=== PATIENT | male | born 1950 | race Caucasian/White ===

== ENCOUNTER 2016-11-08 20:15 | Inpatient (IN) | payer OTHER, MEDICARE ==
[~2016-11-08] VITALS: Ht 185.4 cm; Wt 75.0 kg
[~2016-11-08 20:15] MED LIST: ALBU8I INH; AMLO5 PO; LEVEMIR SQ; LIPI20TA PO; NOVOLOGP2 SQ; PROT40TA PO; PROZ20CA11 PO; TIOT18I INH
[2016-11-08 20:17] VITALS: BP 125/56; PULSE 75; RESP 16; TEMP 99.1; O2SAT 97
[2016-11-08] MEDS ORDERED: PANT40TA3 PO (20:55)
[2016-11-08] MEDS ORDERED: GABA300C5 PO (20:55)
[2016-11-08] MEDS ORDERED: FLUO40CA PO (20:55)
[2016-11-08] MEDS ORDERED: ATOR20TA15 PO (20:55)
[2016-11-08] MEDS ORDERED: LISI10TA3 PO (20:55)
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
[2016-11-08] MEDS ORDERED: VANCOMYCIN INJ 1,000 MG in SODIUM CHLOR 0.9% 250 ML INJ 250 ML IV ONE (21:00)
[2016-11-08 21:15] LABS: AUTOMATED NEUTROPHIL # 6.9 TH/MM3 (1.8-7.7); BASOPHIL # 0.1 TH/MM3 (0-0.2); BASOPHIL % 1.1 % (0.0-2.0); EOSINOPHIL # 0.3 TH/MM3 (0-0.4); EOSINOPHIL % 2.7 % (0.0-4.0); HEMO FLAGS DIFF FINAL; LYMPH % 18.4 % (9.0-44.0); LYMPHOCYTE # 1.8 TH/MM3 (1.0-4.8); MEAN CELL VOLUME 95.3 FL (80.0-100.0); MEAN CORPUSCULAR HEMOGLOBIN 31.1 PG (27.0-34.0); MEAN CORPUSCULAR HGB CONC 32.6 % (32.0-36.0); MONO % 6.6 % (0.0-8.0); NEUT % 71.2 % (16.0-70.0); PLATELET COUNT 212 TH/MM3 (150-450); RED BLOOD COUNT 4.51 MIL/MM3 (4.50-5.90); RED CELL DISTRIBUTION WIDTH 13.8 % (11.6-17.2); WHITE BLOOD COUNT 9.7 TH/MM3 (4.0-11.0)
[2016-11-08 21:27] LABS: APTT (PATIENT) 26.8 SEC (24.3-30.1); INTERNATIONAL NORMALIZED RATIO 0.9 RATIO; PROTHROMBIN TIME - PATIENT 10.2 SEC (9.8-11.6)
--- NOTE | 2016-11-08 21:50 | RADRPT ---
EXAM DATE/TIME: 11/08/2016 21:07 [facility] COMPARISON: No previous studies available for comparison. INDICATIONS : Possible spider bite top of left foot. Large wound. MEDICAL HISTORY : None. SURGICAL HISTORY : None. ENCOUNTER: Initial ACUITY: 4 - 6 days PAIN SCORE: 8/10 LOCATION: Left lateral FINDINGS: Three view examination of the left foot demonstrates no dislocation, or fracture. The tarsal bones appear intact. The interphalangeal and metatarsophalangeal joints are intact. The calcaneus is inta ct. Bony mineralization is normal. CONCLUSION: 1. No acute bony abnormalities. Conner Steel MD on November 08, 2016 at 21:47 Board Certified Radiologist. This report was verified electronically.
[2016-11-08 22:03] LABS: ANION GAP 8 MEQ/L (5-15)
[2016-11-08 22:05] LABS: ALKALINE PHOSPHATASE 123 U/L (45-117); ALT (GPT) 26 U/L (12-78); AST (GOT) 18 U/L (15-37); BICARBONATE 28.1 MEQ/L (21.0-32.0); BLOOD UREA NITROGEN 21 MG/DL (7-18); CHLORIDE 98 MEQ/L (98-107); GLOMERULAR FILTRATION RATE 42 ML/MIN (>89); POTASSIUM 4.8 MEQ/L (3.5-5.1); SODIUM (NA) 134 MEQ/L (136-145); TOTAL BILIRUBIN ADULT 0.2 MG/DL (0.2-1.0)
[2016-11-08] MEDS ORDERED: SODIUM CHLOR 0.9% 1000 ML INJ 1,000 ML IV ONE ×2 (22:11→22:41)
[2016-11-08] MEDS ORDERED: INSULIN HUMAN REGULAR 1,000 UNITS/10 ML VIAL IV PUSH ONE (22:15)
--- NOTE | 2016-11-08 22:36 | HHI.HP ---
[facility] Elder Rebolledo [facility] Admission Diagnosis left foot abscess/cellulitis, hyperglycemia Diagnoses: (1) Left foot infection Diagnosis: Principal (2) EDGARDO (acute kidney injury) Diagnosis: Principal (3) HTN (hypertension) Diagnosis: Principal (4) DM (diabetes mellitus) Diagnosis: Principal (5) Tobacco abuse Diagnosis: Principal Travel History International Travel<30 Days: No Contact w/Intl Traveler <30 Da: No Traveled to Known Affected Are: No History of Present Illness This is a 66-year-old male with a PMH of HTN, Hyperlipidemia, DM and Tobacco Abuse sent to the ER with complaints of left foot infection. States left 5th toe had gotten red w/ blister formation, seen by PCP and started on Augmentin yesterday. Today, noted the redness had gotten progressively worse, states blister popped, +purulent drainage. Denies fever or chills. On arrival, BP 122 /56, HR 75, O2 sat 97% on RA, Temp 99.1. CBC unremarkable. Creatinine 1.64, previously 1.21 on 10/08/15. BS 523. Lactic Acid 1.7. INR 0.9. UA negative. Foot X-ray with no acute bony abnormalities. S/p Blood/Wound Cultures in ER and given Vanc IV Review of Systems Except as stated in HPI: all other systems reviewed are Neg ROS: 14 point review of systems otherwise negative. Past Family Social History Past Medical History PMH: HTN, Hyperlipidemia, DM and Tobacco Abuse Past Surgical History PAST SURGICAL HISTORY: Pacemaker Allergies: Coded Allergies: No Known Allergies (Unverified , 10/07/15) Family History PAST FAMILY HISTORY: Reviewed. No h/o DM or CAD Social History PAST SOCIAL HISTORY: Occasional alcohol. Smokes 1ppd. Negative for drugs. Physical Exam Vital Signs Vital Signs Date Time Temp Pulse Resp B/P Pulse Ox O2 Delivery O2 Flow Rate FiO2 11/08/16 20:17 99.1 75 16 125/56 97 Physical Exam PE: GENERAL: Middle-aged male in no acute distress. HEENT: PERRLA, EOMI. No scleral icterus or conjunctival pallor. No lid lag or facial droop. CARDIOVASCULAR: Regular rate and rhythm. No obvious murmurs to auscultation. No chest tenderness to palpation. RESPIRATORY: No obvious rhonchi or wheezing. Clear to auscultation. Breath sounds equal bilaterally. GASTROINTESTINAL: Abdomen soft, non-tender, nondistended. BS normal. MUSCULOSKELETAL: Extremities without clubbing, cyanosis, or edema. No obvious deformities. Left foot w/ 5th toe infection, +purulent drainage, +erythema. NEUROLOGICAL: Awake, alert and oriented x4. No focal neurologic deficits. Moving both upper and lower extremities spontaneously. Laboratory Laboratory Tests Test 11/08/16 20:55 White Blood Count 9.7 Red Blood Count 4.51 Hemoglobin 14.0 Hematocrit 43.0 Mean Corpuscular Volume 95.3 Mean Corpuscular Hemoglobin 31.1 Mean Corpuscular Hemoglobin 32.6 Concent Red Cell Distribution Width 13.8 Platelet Count 212 Mean Platelet Volume 8.9 Neutrophils (%) (Auto) 71.2 Lymphocytes (%) (Auto) 18.4 Monocytes (%) (Auto) 6.6 Eosinophils (%) (Auto) 2.7 Basophils (%) (Auto) 1.1 Neutrophils # (Auto) 6.9 Lymphocytes # (Auto) 1.8 Monocytes # (Auto) 0.6 Eosinophils # (Auto) 0.3 Basophils # (Auto) 0.1 CBC Comment DIFF FINAL Differential Comment Prothrombin Time 10.2 Prothromb Time International 0.9 Ratio Activated Partial 26.8 Thromboplast Time Sodium Level 134 Potassium Level 4.8 Chloride Level 98 Carbon Dioxide Level 28.1 Anion Gap 8 Blood Urea Nitrogen 21 Creatinine 1.64 Estimat Glomerular Filtration 42 Rate Random Glucose 523 Lactic Acid Level 1.7 Calcium Level 9.2 Total Bilirubin 0.2 Aspartate Amino Transf 18 (AST/SGOT) Alanine Aminotransferase 26 (ALT/SGPT) Alkaline Phosphatase 123 Total Protein 6.8 Albumin 3.3 Date/Time Procedure Status Source Growth 11/08/16 20:55 Aerobic Blood Culture Received Blood Peripheral Pending 11/08/16 20:55 Anaerobic Blood Culture Received Blood Peripheral Pending 11/08/16 20:50 Gram Stain Received Wound Foot Pending 11/08/16 20:50 Wound Culture Received Wound Foot Pending Result Diagram: 11/08/16205411/08/162054 Assessment and Plan Problem List: (1) Left foot infection ICD Code: L08.9 Status: Acute (2) EDGARDO (acute kidney injury) ICD Code: N17.9 Status: Acute (3) HTN (hypertension) ICD Code: I10 Status: Acute (4) DM (diabetes mellitus) ICD Code: E11.9 Status: Acute (5) Tobacco abuse ICD Code: Z72.0 Status: Acute Assessment and Plan A/P: 1. Left Foot Infection: seen by PCP yesterday, started on Augmentin w/ no improvement, +purulent drainage from 5th left toe. X-ray w/ no acute bony abnormality, images reviewed by me. S/p Blood/Wound Cultures and IV Vanc in ER , follow up cultures, continue IV Abx. Consult Podiatry for further evaluation 2. DM: Uncontrolled. Hgb A1c 11.0 on 10/07/15. BS 523. S/p 10u Insulin, sliding scale w/ Accu-Cheks. Re-check Hgb A1c. 3. EDGARDO: Creatinine 1.64, previously 1.21 on 10/08/15. U/a negative, IVF, repeat labs in am. 4. HTN: BP 120's systolic. Resume home medications, hold Lisinopril in light of renal insufficiency. 5. Tobacco Abuse: Pt counselled. Ativan/NicoDerm prn if needed. 6. DVT Prophylaxis: Mechanical contraindication in light of injury/wound. 7. Social work for d/c planning as needed. 8. Case discussed w/ ER physician at length. Physician Certification 2 Midnight Certification Type: Admission for Inpatient Services Order for Inpatient Services The services are ordered in accordance with Medicare regulations or non- Medicare payer requirements, as applicable. In the case of services not specified as inpatient-only, they are appropriately provided as inpatient services in accordance with the 2-midnight benchmark. Estimated LOS (days): 2 days is the estimated time the patient will need to remain in the hospital, assuming treatment plan goals are met and no additional complications. Post-Hospital Plan: Not yet determined Angeline Astudillo MD Nov 08, 2016 22:36
[2016-11-08] MEDS ORDERED: SODIUM CHLORIDE 0.9% FLUSH 10 ML FLUSH IV FLUSH PRN (22:45)
[2016-11-08] MEDS ORDERED: BISACODYL 10 MG SUPP RECTAL PRN (22:45)
[2016-11-08] MEDS ORDERED: DEXTROSE 50% IN WATER 50 ML VIAL(D50) IV PUSH PRN (22:45)
[2016-11-08] MEDS ORDERED: ACETAMINOPHEN 325 MG TAB PO PRN (22:45)
[2016-11-08] MEDS ORDERED: ACETAMINOPHEN/HYDROcodone 325 MG/5 MG TAB PO PRN (22:45)
[2016-11-08] MEDS ORDERED: GLUCAGON 1 MG/ML VIAL OTHER PRN (22:45)
[2016-11-08] MEDS ORDERED: Vancomycin Consult Pharmacy 1 EA OTHER SCH (22:45)
[2016-11-08] MEDS ORDERED: ONDANSETRON HCL 4 MG/2 ML VIAL IVP PRN (22:45)
[2016-11-08] MEDS ORDERED: MORPHINE SULFATE 4 MG/ML INJ IV PRN (22:45)
[2016-11-08] MEDS: SODIUM CHLOR 0.9% 1000 ML INJ 1,000 ML IV SCH (23:11)
[2016-11-08] MEDS: HEPARIN SODIUM - SQ 10,000 UNITS/ML VIAL SQ SCH (23:12)
[2016-11-08 23:32] LABS: BACTERIA, URINE RARE /hpf; BLOOD, URINE NEG (NEG); GLUCOSE,URINE 1000 mg/dL (NEG); KETONE, URINE NEG (NEG); NITRITE,URINE NEG (NEG); PH, URINE 5.5 (5.0-8.5); URINE COLOR LIGHT-YELLOW (YELLW/STRAW)
[2016-11-08 23:33] LABS: COMMENT (UR) CATH-CULTURE IND; CULTURE IF INDICATED CATH CULTURE IND
[2016-11-08] MEDS: CEFEPIME INJ 1,000 MG in SODIUM CHLORIDE 0.9% INJ 100 ML IV SCH (23:49)
[2016-11-09] VITALS: BP 139/73; PULSE 64; RESP 18; TEMP 97.9; O2SAT 97
[2016-11-09] MEDS: INSULIN ASPART SUPPLEMENTAL SCALE SQ SCH ×4 (04:51→19:44)
[2016-11-09 05:27] LABS: AUTOMATED NEUTROPHIL # 5.7 TH/MM3 (1.8-7.7); BASOPHIL # 0.1 TH/MM3 (0-0.2); EOSINOPHIL # 0.4 TH/MM3 (0-0.4); EOSINOPHIL % 4.8 % (0.0-4.0); HEMATOCRIT 38.7 % (39.0-51.0); HEMO FLAGS DIFF FINAL; LYMPH % 21.5 % (9.0-44.0); LYMPHOCYTE # 1.8 TH/MM3 (1.0-4.8); MEAN CORPUSCULAR HEMOGLOBIN 30.9 PG (27.0-34.0); MEAN CORPUSCULAR HGB CONC 33.2 % (32.0-36.0); NEUT % 66.7 % (16.0-70.0); PLATELET COUNT 188 TH/MM3 (150-450); RED BLOOD COUNT 4.16 MIL/MM3 (4.50-5.90); RED CELL DISTRIBUTION WIDTH 13.4 % (11.6-17.2); WHITE BLOOD COUNT 8.5 TH/MM3 (4.0-11.0)
[2016-11-09 06:00] LABS: ALKALINE PHOSPHATASE 97 U/L (45-117); ALT (GPT) 19 U/L (12-78); ANION GAP 6 MEQ/L (5-15); AST (GOT) 9 U/L (15-37); BICARBONATE 27.6 MEQ/L (21.0-32.0); BLOOD UREA NITROGEN 18 MG/DL (7-18); CHLORIDE 105 MEQ/L (98-107); GLOMERULAR FILTRATION RATE 70 ML/MIN (>89); POTASSIUM 4.3 MEQ/L (3.5-5.1); SODIUM (NA) 139 MEQ/L (136-145); TOTAL BILIRUBIN ADULT 0.3 MG/DL (0.2-1.0)
--- NOTE | 2016-11-09 07:33 | PD.CONS ---
History of Present Illness Service Podiatry Consult Requested By Reason for Consult Le3ft fifth toe blister Primary Care Physician Elder Rebolledo MD Diagnoses: History of Present Illness 66 year old diabetic male presents with left fith toe blister with pus and redness. Pt states been there for a few days and progressively gotten worse even on antibiotics. Pt is comfortable at bedside Past Family Social History Allergies: Coded Allergies: No Known Allergies (Unverified , 10/07/15) Physical Exam Vital Signs Vital Signs Date Time Temp Pulse Resp B/P Pulse Ox O2 Delivery O2 Flow Rate FiO2 11/09/16 00:00 97.9 64 18 139/73 97 11/08/16 20:17 99.1 75 16 125/56 97 Physical Exam GENERAL: This is a well-nourished, well-developed patient, in no apparent distress. SKIN: No rashes, ecchymoses or lesions. Cool and dry. HEAD: Atraumatic. Normocephalic. No temporal or scalp tenderness. EYES: Pupils equal round and reactive. Extraocular motions intact. No scleral icterus. No injection or drainage. ENT: Nose without bleeding, purulent drainage or septal hematoma. Throat without erythema, tonsillar hypertrophy or exudate. Uvula midline. Airway patent. NECK: Trachea midline. No JVD or lymphadenopathy. Supple, nontender, no meningeal signs. CARDIOVASCULAR: Regular rate and rhythm without murmurs, gallops, or rubs. RESPIRATORY: Clear to auscultation. Breath sounds equal bilaterally. No wheezes , rales, or rhonchi. GASTROINTESTINAL: Abdomen soft, non-tender, nondistended. No hepato-splenomegaly , or palpable masses. No guarding. MUSCULOSKELETAL: Extremities without clubbing, cyanosis, or edema. No joint tenderness, effusion, or edema noted. No calf tenderness. Negative Homans sign bilaterally. NEUROLOGICAL: Awake and alert. Cranial nerves II through XII intact. Motor and sensory grossly within normal limits. Five out of 5 muscle strength in all muscle groups. Normal speech. Laboratory Laboratory Tests Test 11/08/16 11/08/16 11/09/16 20:55 23:10 04:30 White Blood Count 9.7 8.5 Red Blood Count 4.51 4.16 Hemoglobin 14.0 12.9 Hematocrit 43.0 38.7 Mean Corpuscular Volume 95.3 93.0 Mean Corpuscular Hemoglobin 31.1 30.9 Mean Corpuscular Hemoglobin 32.6 33.2 Concent Red Cell Distribution Width 13.8 13.4 Platelet Count 212 188 Mean Platelet Volume 8.9 9.1 Neutrophils (%) (Auto) 71.2 66.7 Lymphocytes (%) (Auto) 18.4 21.5 Monocytes (%) (Auto) 6.6 6.0 Eosinophils (%) (Auto) 2.7 4.8 Basophils (%) (Auto) 1.1 1.0 Neutrophils # (Auto) 6.9 5.7 Lymphocytes # (Auto) 1.8 1.8 Monocytes # (Auto) 0.6 0.5 Eosinophils # (Auto) 0.3 0.4 Basophils # (Auto) 0.1 0.1 CBC Comment DIFF FINAL DIFF FINAL Differential Comment Prothrombin Time 10.2 Prothromb Time International 0.9 Ratio Activated Partial 26.8 Thromboplast Time Sodium Level 134 139 Potassium Level 4.8 4.3 Chloride Level 98 105 Carbon Dioxide Level 28.1 27.6 Anion Gap 8 6 Blood Urea Nitrogen 21 18 Creatinine 1.64 1.05 Estimat Glomerular Filtration 42 70 Rate Random Glucose 523 245 Lactic Acid Level 1.7 Calcium Level 9.2 8.6 Total Bilirubin 0.2 0.3 Aspartate Amino Transf 18 9 (AST/SGOT) Alanine Aminotransferase 26 19 (ALT/SGPT) Alkaline Phosphatase 123 97 Total Protein 6.8 5.5 Albumin 3.3 2.6 Urine Color LIGHT-YELLOW Urine Turbidity CLEAR Urine pH 5.5 Urine Specific [place] 1.031 Urine Protein NEG Urine Glucose (UA) 1000 Urine Ketones NEG Urine Occult Blood NEG Urine Nitrite NEG Urine Bilirubin NEG Urine Urobilinogen LESS THAN 2.0 Urine Leukocyte Esterase NEG Urine RBC LESS THAN 1 Urine WBC 1 Urine Bacteria RARE Microscopic Urinalysis Comment CATH-CULTURE IND Date/Time Procedure Status Source Growth 11/08/16 23:10 Urine Culture Received Urine Clean Catch Pending 11/08/16 20:55 Aerobic Blood Culture Received Blood Peripheral Pending 11/08/16 20:55 Anaerobic Blood Culture Received Blood Peripheral Pending 11/08/16 20:50 Gram Stain Received Wound Foot Pending 11/08/16 20:50 Wound Culture Received Wound Foot Pending Result Diagram: 11/09/16 0430 11/09/16 0430 Imaging Xray no osseous findings Course LEft foot- Pulses diminished, sensation intact Mild edema lateral left forefoot Fifth toe edema and superficial blister with mild purulent drainage no tracking deep and no fluctuance deep Assessment and Plan Assessment and Plan DM ulcer, Left fifth digit soft tissue infection -Plan is betadine wet to dry -May consider SUSAN to get a baseline circulation assessment -IV antibiotics -Medical optimization -WBAT in post op shoe Thank you for the consult Max Das DPM Nov 09, 2016 07:33
[2016-11-09] MEDS: GABAPENTIN 300 MG CAP PO SCH (07:50)
[2016-11-09] MEDS: FLUoxetine HCL 20 MG CAP PO SCH (07:51)
[2016-11-09] MEDS: PANTOPRAZOLE SOD 40 MG DELAYED RELEASE TAB PO SCH (07:51)
[2016-11-09] MEDS: SODIUM CHLORIDE 0.9% FLUSH 10 ML FLUSH IV FLUSH SCH ×2 (07:52→19:44)
[2016-11-09] MEDS: SODIUM CHLOR 0.9% 1000 ML INJ 1,000 ML IV SCH ×2 (07:53→19:39)
[2016-11-09 08:00] VITALS: BP 133/67; PULSE 63; RESP 17; TEMP 97.7; O2SAT 98
--- NOTE | 2016-11-09 10:59 | HHI.PR ---
Subjective Remarks Follow up for left foot infection. Patient reports his left foot pain and swelling has improved overnight. Denies any fevers or chills. Tolerating oral intake. Denies any other medical complaints at this time. Objective Vitals Vital Signs Date Time Temp Pulse Resp B/P Pulse Ox O2 Delivery O2 Flow Rate FiO2 11/09/16 08:00 97.7 63 17 133/67 98 11/09/16 00:00 97.9 64 18 139/73 97 11/08/16 20:17 99.1 75 16 125/56 97 I/O 11/08/16 11/08/16 11/08/16 11/09/16 11/09/16 11/09/16 07:00 15:00 23:00 07:00 15:00 23:00 Intake Total 120 ml Output Total 0 ml Balance 120 ml Intake Oral 120 ml Output Urine Total 0 ml # Bowel Movements 0 Result Diagram: 11/09/16 0430 11/09/16 0430 Imaging Last Impressions Foot X-Ray 11/08/16 0000 Signed Impressions: Service Date/Time: Tuesday, November 08, 2016 21:07 - CONCLUSION: 1. No acute bony abnormalities. Conner tSeel MD Objective Remarks GENERAL: Well-developed, well-nourished male patient in [facility]. SKIN: Warm and dry. HEENT: Atraumatic. Normocephalic. Pupils equal and round. Mucous membranes pink and moist. NECK: Trachea midline. CARDIOVASCULAR: Regular rate and rhythm. No murmur appreciated. RESPIRATORY: No accessory muscle use. Clear to auscultation. Breath sounds equal bilaterally. GASTROINTESTINAL: Abdomen soft, non-tender, nondistended. Hepatic and splenic margins not palpable. MUSCULOSKELETAL: Extremities without clubbing, cyanosis, or edema. Left 5th toe with erythema/edema extending to the mid foot, purulent drainage from small 1cm wound at dorsal aspect of left 5th toe. NEUROLOGICAL: Awake and alert. No obvious cranial nerve deficits. Motor grossly within normal limits. Normal speech. PSYCHIATRIC: Appropriate mood and affect; insight and judgment normal. Medications and IVs Current Medications Medications (Trade) Dose Ordered Sig/Tricia Route Start Time Stop Time Status Last Admin (D50w (Vial) Inj) 25 ml UNSCH PRN IV PUSH 11/08/16 22:45 Glucagon 1 mg 1 mg UNSCH PRN OTHER 11/08/16 22:45 Pharmacy Profile Note 0 ml @ 0 mls/hr UNSCH OTHER 11/08/16 22:45 Cefepime HCl 1000 mg/Sodium Chloride 100 ml @ 200 mls/hr Q12H IV 11/09/16 00:00 11/08/16 23:49 (NS 1000 ml Inj) 1,000 ml @ 100 mls/hr Q10H IV 11/08/16 22:31 11/08/16 23:11 (NS Flush) 2 ml UNSCH PRN IV FLUSH 11/08/16 22:45 (NS Flush) 2 ml BID IV FLUSH 11/09/16 09:00 11/09/16 07:52 (Zofran Inj) 4 mg Q6H PRN IVP 11/08/16 22:45 (Dulcolax Supp) 10 mg DAILY PRN RECTAL 11/08/16 22:45 (Heparin Inj) 5,000 units Q12H SQ 11/08/16 23:00 11/08/16 23:12 (Tylenol) 650 mg Q6H PRN PO 11/08/16 22:45 (Warren 5-325 Mg) 1 tab Q4H PRN PO 11/08/16 22:45 (Morphine Inj) 2 mg Q3H PRN IV 11/08/16 22:45 (Lipitor) 20 mg HS PO 11/09/16 21:00 (PROzac) 40 mg DAILY PO 11/09/16 09:00 11/09/16 07:51 (Neurontin) 300 mg DAILY PO 11/09/16 09:00 11/09/16 07:50 Pantoprazole Sodium 40 mg 40 mg DAILY PO 11/09/16 09:00 11/09/16 07:51 (Vancomycin Inj/ NS 250 ml Inj) 250 ml @ 250 mls/hr Q12H IV 11/09/16 11:00 Miscellaneous Information SPECIFIC LAB TO BE DRAWN:VANCOMY... ONCE ONCE .XX 11/10/16 10:45 11/10/16 10:46 A/P Problem List: (1) Left foot infection ICD Code: L08.9 Status: Acute (2) EDGARDO (acute kidney injury) ICD Code: N17.9 Status: Acute (3) HTN (hypertension) ICD Code: I10 Status: Acute (4) DM (diabetes mellitus) ICD Code: E11.9 Status: Acute (5) Tobacco abuse ICD Code: Z72.0 Status: Acute Assessment and Plan 66-year-old male with a PMH of HTN, Hyperlipidemia, DM and Tobacco Abuse sent to the ER with complaints of left foot infection. States left 5th toe had gotten red w/ blister formation, seen by PCP and started on Augmentin yesterday. Diabetic Left Fifth Toe Infection: seen by PCP yesterday, started on Augmentin w/ no improvement, +purulent drainage from 5th left toe. X-ray w/ no acute bony abnormality, images reviewed by me. Continue IV Vanco/Cefepime. Monitor wound and blood cultures. Consult Podiatry, recommends wound care with betadine wet to dry; SUSAN for baseline circulation assessment, continue IV abx, WBAT in post op shoe. DM: Uncontrolled. Hgb A1c 11.0 on 10/07/15. BS 523. S/p 10u Insulin, sliding scale w/ Accu-Cheks. Re-check Hgb A1c. EDGARDO: Creatinine 1.64, previously 1.21 on 10/08/15. U/a negative, IVF, repeat labs today show improvement, Cr 1.05. Continue to monitor. HTN: BP 120's systolic. Resume home medications, held Lisinopril in light of renal insufficiency. Tobacco Abuse: Pt counselled. Ativan/NicoDerm prn if needed. DVT Prophylaxis: Mechanical contraindication in light of injury/wound. Written by Jennifer Almazan, acting as scribe for Dr. You on 11/09/16 at 11: 50. Attending Statement This note was transcribed by scribe. I, Dr. Kriss You personally performed the history, physical exam, and medical decision making; and confirmed the accuracy of the information in the transcribed note. Authenticated by Dr. Kriss You on 11/09/16 at 12:13. Jennifer Almazan PA-C Nov 09, 2016 10:59 Kriss You MD Nov 09, 2016 12:13
[2016-11-09 11:09] LABS: HEMOGLOBIN A1a 1.7 %; HEMOGLOBIN A1b 1.1 %; HEMOGLOBIN Ao 74.4 %; HEMOGLOBIN F 2.1 %; HEMOGLOBIN LA1C 3.2 %; HEMOGLOBIN P3 5.8 %
--- NOTE | 2016-11-09 11:36 | RADRPT ---
EXAM DATE/TIME: 11/09/2016 00:00 [facility] COMPARISON: No previous studies available for comparison. INDICATIONS : Left foot abcess/cellulitis TECHNIQUE: Four-cuff ankle and brachial pressures were obtained. Pulse cuff waveform tracings of the ankles were recorded, and ankle-brachial indices were calculated. PRESSURES (mmHg): Brachial (arm): Left 122 Ankle: Right 137 Left 128 SUSAN: Right 1.12 Left 1.05 TBI: Right 0.64 Left 0.61 PULSED CUFF WAVEFORMS: Demonstrate normal amplitude bilaterally. CONCLUSION: Unremarkable ankle brachial indices. Taylor Crane MD on November 09, 2016 at 11:31 Board Certified Radiologist. This report was verified electronically.
[2016-11-09] MEDS: CEFEPIME INJ 1,000 MG in SODIUM CHLORIDE 0.9% INJ 100 ML IV SCH (11:49)
[2016-11-09] MEDS: HEPARIN SODIUM - SQ 10,000 UNITS/ML VIAL SQ SCH (11:59)
[2016-11-09 12:00] VITALS: BP 146/69; PULSE 70; RESP 18; TEMP 98.2; O2SAT 100
[2016-11-09] MEDS: VANCOMYCIN 1,000 MG/NS 250 ML IV SCH ×2 (12:37)
[2016-11-09 16:00] VITALS: BP 133/63; PULSE 63; RESP 17; TEMP 96.8; O2SAT 100
[2016-11-09] MEDS: ATORVASTATIN 20 MG TAB PO SCH (19:43)
[2016-11-09 20:00] VITALS: BP_SYST 136; BP_SYST 163; BP_DIAS 66; BP_DIAS 80; PULSE 79; RESP 18; TEMP 96.8; O2SAT 94
[2016-11-10 00:59] VITALS: BP 134/60; PULSE 80; RESP 17; TEMP 98.4; O2SAT 97
[2016-11-10] MEDS: CEFEPIME INJ 1,000 MG in SODIUM CHLORIDE 0.9% INJ 100 ML IV SCH ×2 (02:01→12:12)
[2016-11-10] MEDS: HEPARIN SODIUM - SQ 10,000 UNITS/ML VIAL SQ SCH ×3 (02:01→21:47)
[2016-11-10] MEDS: VANCOMYCIN 1,000 MG/NS 250 ML IV SCH ×6 (02:01→21:48)
[2016-11-10] MEDS: SODIUM CHLOR 0.9% 1000 ML INJ 1,000 ML IV SCH ×2 (04:43→15:53)
[2016-11-10] MEDS: INSULIN ASPART SUPPLEMENTAL SCALE SQ SCH ×4 (04:44→21:46)
[2016-11-10 08:00] VITALS: BP 131/60; PULSE 66; RESP 16; TEMP 98.3; O2SAT 100
[2016-11-10] MEDS: GABAPENTIN 300 MG CAP PO SCH (08:40)
[2016-11-10] MEDS: FLUoxetine HCL 20 MG CAP PO SCH (08:40)
[2016-11-10] MEDS: SODIUM CHLORIDE 0.9% FLUSH 10 ML FLUSH IV FLUSH SCH ×2 (08:40→21:00)
[2016-11-10] MEDS: PANTOPRAZOLE SOD 40 MG DELAYED RELEASE TAB PO SCH (08:40)
[2016-11-10] MEDS ORDERED: LEVEMIR SQ (10:03)
[2016-11-10] MEDS ORDERED: NOVORP2 SQ (10:03)
[2016-11-10] MEDS ORDERED: PHARMACY ORDERED LAB ONE (10:45)
[2016-11-10] MEDS ORDERED: INSULIN DETEMIR 100 UNITS/ML VIAL SQ SCH (11:00)
[2016-11-10] MEDS: LISINOPRIL 10 MG TAB PO SCH (11:10)
--- NOTE | 2016-11-10 11:57 | HHI.PR ---
Subjective Remarks Follow up for left foot diabetic infection. The patient reports continued erythema, warmth, pain, at the left foot. He does believe it is slightly improved compared to yesterday. No fevers/chills. Discussed his uncontrolled diabetes, senior health educator at bedside, patient reports over the past few months he's been eating more Easter candy. He reports taking Levemir 15u bid and Novolog SSI at home. Objective Vitals Vital Signs Date Time Temp Pulse Resp B/P Pulse Ox O2 Delivery O2 Flow Rate FiO2 11/10/16 08:00 98.3 66 16 131/60 100 11/10/16 00:59 98.4 80 17 134/60 97 11/09/16 20:00 96.8 79 18 136/66 94 11/09/16 16:00 96.8 63 17 133/63 100 11/09/16 12:00 98.2 70 18 146/69 100 I/O 11/09/16 11/09/16 11/09/16 11/10/16 11/10/16 11/10/16 07:00 15:00 23:00 07:00 15:00 23:00 Intake Total 120 ml 1518 ml 480 ml 1903 ml Output Total 0 ml 600 ml 600 ml 1000 ml Balance 120 ml 918 ml -120 ml 903 ml Intake Oral 120 ml 560 ml 480 ml 480 ml IV Total 958 ml 1423 ml Output Urine Total 0 ml 600 ml 600 ml 1000 ml # Bowel Movements 0 0 1 Result Diagram: 11/09/16 0430 11/10/16 0504 Imaging Last Impressions Foot X-Ray 11/08/16 0000 Signed Impressions: Service Date/Time: Tuesday, November 08, 2016 21:07 - CONCLUSION: 1. No acute bony abnormalities. Conner Steel MD Objective Remarks GENERAL: Well-developed, well-nourished male patient in [facility]. SKIN: Warm and dry. HEENT: Atraumatic. Normocephalic. Pupils equal and round. Mucous membranes pink and moist. NECK: Trachea midline. CARDIOVASCULAR: Regular rate and rhythm. No murmur appreciated. RESPIRATORY: No accessory muscle use. Clear to auscultation. Breath sounds equal bilaterally. GASTROINTESTINAL: Abdomen soft, non-tender, nondistended. Hepatic and splenic margins not palpable. MUSCULOSKELETAL: Extremities without clubbing, cyanosis, or edema. Left 5th toe with erythema/edema extending to the mid foot, purulent drainage from small 1cm wound at dorsal aspect of left 5th toe. NEUROLOGICAL: Awake and alert. No obvious cranial nerve deficits. Motor grossly within normal limits. Normal speech. PSYCHIATRIC: Appropriate mood and affect; insight and judgment normal. Medications and IVs Current Medications Medications (Trade) Dose Ordered Sig/Tricia Route Start Time Stop Time Status Last Admin (D50w (Vial) Inj) 25 ml UNSCH PRN IV PUSH 11/08/16 22:45 Glucagon 1 mg 1 mg UNSCH PRN OTHER 11/08/16 22:45 Pharmacy Profile Note 0 ml @ 0 mls/hr UNSCH OTHER 11/08/16 22:45 Cefepime HCl 1000 mg/Sodium Chloride 100 ml @ 200 mls/hr Q12H IV 11/09/16 00:00 11/10/16 02:01 (NS 1000 ml Inj) 1,000 ml @ 100 mls/hr Q10H IV 11/08/16 22:31 11/10/16 04:43 (NS Flush) 2 ml UNSCH PRN IV FLUSH 11/08/16 22:45 (NS Flush) 2 ml BID IV FLUSH 11/09/16 09:00 11/09/16 19:44 (Zofran Inj) 4 mg Q6H PRN IVP 11/08/16 22:45 (Dulcolax Supp) 10 mg DAILY PRN RECTAL 11/08/16 22:45 (Heparin Inj) 5,000 units Q12H SQ 11/08/16 23:00 11/10/16 11:10 (Tylenol) 650 mg Q6H PRN PO 11/08/16 22:45 ([place] 5-325 Mg) 1 tab Q4H PRN PO 11/08/16 22:45 (Morphine Inj) 2 mg Q3H PRN IV 11/08/16 22:45 (Lipitor) 20 mg HS PO 11/09/16 21:00 11/09/16 19:43 (PROzac) 40 mg DAILY PO 11/09/16 09:00 11/10/16 08:40 (Neurontin) 300 mg DAILY PO 11/09/16 09:00 11/10/16 08:40 Pantoprazole Sodium 40 mg 40 mg DAILY PO 11/09/16 09:00 11/10/16 08:40 (Vancomycin Inj/ NS 250 ml Inj) 250 ml @ 250 mls/hr Q12H IV 11/09/16 11:00 11/10/16 11:02 (Prinivil) 10 mg DAILY PO 11/10/16 11:00 11/10/16 11:10 (Levemir Inj) 10 units BID SQ 11/10/16 11:00 11/10/16 11:10 A/P Problem List: (1) Left foot infection ICD Code: L08.9 Status: Acute (2) EDGARDO (acute kidney injury) ICD Code: N17.9 Status: Acute (3) HTN (hypertension) ICD Code: I10 Status: Acute (4) DM (diabetes mellitus) ICD Code: E11.9 Status: Acute (5) Tobacco abuse ICD Code: Z72.0 Status: Acute Assessment and Plan 66-year-old male with a PMH of HTN, Hyperlipidemia, DM and Tobacco Abuse sent to the ER with complaints of left foot infection. States left 5th toe had gotten red w/ blister formation, seen by PCP and started on Augmentin yesterday. Diabetic Left Fifth Toe Infection, Failed Outpatient: seen by PCP prior to arrival, started on Augmentin w/ no improvement, +purulent drainage from 5th left toe. X-ray w/ no acute bony abnormality, images reviewed by me. Continue on IV Vanco/Cefepime. Blood cultures with NGTD. Wound culture with Staph aureus , only resistant to Levaquin/Penicillin. Consult Podiatry, recommends wound care with betadine wet to dry; SUSAN for baseline circulation assessment unremarkable. WBAT in post op shoe. DM: Uncontrolled, noncompliant with diet, admits to eating more Easter candy recently. Hgb A1c 11.0 on 10/07/15. BS 523. S/p 10u Insulin in ED. Monitor Accu-cheks. Restart patient's Levemir 15u bid and Novolog SSI. Hgb A1c 11.5. Consult senior health educator and toolroom attendant. EDGARDO: Creatinine 1.64, previously 1.21 on 10/08/15. U/a negative, IVF, repeat labs today show much improvement, Cr 0.94. Resolved. HTN: BP 120's systolic. Resume home medications, restart lisinopril today with resolution of EDGARDO. Tobacco Abuse: Pt counselled. Ativan/NicoDerm prn if needed. DVT Prophylaxis: Mechanical contraindication in light of injury/wound. Discussed with patient, senior health educator, RN at bedside. Written by Jennifer Dunham, acting as scribe for Dr. You on 11/10/16 at 12: 03. Attending Statement This note was transcribed by scribe jennifer dunham. I, Dr. Kriss You personally performed the history, physical exam, and medical decision making; and confirmed the accuracy of the information in the transcribed note. Authenticated by Dr. Kriss You on 11/10/16 at 22:27. Jennifer Dunham PA-C Nov 10, 2016 11:57 Kriss You MD Nov 10, 2016 22:27
[2016-11-10 12:00] VITALS: BP 142/69; PULSE 64; RESP 18; TEMP 98.4; O2SAT 97
[2016-11-10 16:00] VITALS: BP 135/65; PULSE 64; RESP 16; TEMP 98.3; O2SAT 98
[2016-11-10] MEDS ORDERED: CARV3.12 PO (17:35)
[2016-11-10 20:00] VITALS: BP 131/63; PULSE 73; RESP 21; TEMP 99.3; O2SAT 100
[2016-11-10] MEDS: CARVEDILOL 3.125 MG TAB PO SCH (21:46)
[2016-11-10] MEDS: ATORVASTATIN 20 MG TAB PO SCH (21:46)
[2016-11-10] MEDS: INSULIN DETEMIR 100 UNITS/ML VIAL SQ SCH (21:46)
[2016-11-11] VITALS: BP 132/63; PULSE 72; RESP 20; TEMP 99.7; O2SAT 98
[2016-11-11] MEDS: CEFEPIME INJ 1,000 MG in SODIUM CHLORIDE 0.9% INJ 100 ML IV SCH ×2 (00:48→12:54)
[2016-11-11] MEDS: SODIUM CHLOR 0.9% 1000 ML INJ 1,000 ML IV SCH ×3 (00:49→22:04)
[2016-11-11] MEDS: INSULIN ASPART SUPPLEMENTAL SCALE SQ SCH ×4 (06:10→21:00)
[2016-11-11 08:00] VITALS: BP 117/59; PULSE 60; RESP 17; TEMP 97.5; O2SAT 98
[2016-11-11] MEDS: INSULIN DETEMIR 100 UNITS/ML VIAL SQ SCH ×2 (08:25→22:05)
[2016-11-11] MEDS: CARVEDILOL 3.125 MG TAB PO SCH ×2 (08:26→22:04)
[2016-11-11] MEDS: GABAPENTIN 300 MG CAP PO SCH (08:26)
[2016-11-11] MEDS: SODIUM CHLORIDE 0.9% FLUSH 10 ML FLUSH IV FLUSH SCH ×2 (08:26→21:00)
[2016-11-11] MEDS: LISINOPRIL 10 MG TAB PO SCH (08:26)
[2016-11-11] MEDS: PANTOPRAZOLE SOD 40 MG DELAYED RELEASE TAB PO SCH (08:26)
[2016-11-11] MEDS: FLUoxetine HCL 20 MG CAP PO SCH (08:26)
--- NOTE | 2016-11-11 10:40 | PD.POD ---
Subjective Podiatric Problems Infection L foot, s/p I&D Dr Das 11/09/16 Past Med/Surg/Social History Social History Smoking Status: Current Every Day Smoker Objective Vital Signs Vital Signs Date Time Temp Pulse Resp B/P Pulse Ox O2 Delivery O2 Flow Rate FiO2 11/11/16 08:00 97.5 60 17 117/59 98 11/11/16 00:00 99.7 72 20 132/63 98 11/10/16 20:00 99.3 73 21 131/63 100 11/10/16 16:00 98.3 64 16 135/65 98 11/10/16 12:00 98.4 64 18 142/69 97 Coded Allergies: No Known Allergies (Unverified , 10/07/15) Physical Exam Remarks L lateral 5th toe area with deroofed bulla and healthy granular base to residual wound. Wound approx 3cm diameter and 0.1cm depth. No tracking noted. No purulence noted. Resolving erythema to dorsal foot. Assessment & Plan A/P Infection L foot, resolving. Continue daily xeroform, 2x2, cling, tape L foot. Follow up with Dr Das 1 week for further wound evaluation and care. Ok from podiatry standpoint to d/c on 2 weeks oral antibiotics per primary team Microbiology Date/Time Procedure Status Source Growth 11/08/16 23:10 Urine Culture - Final Complete Urine Clean Catch NO GROWTH IN 48 HOURS. 11/08/16 20:55 Aerobic Blood Culture - Preliminary Resulted Blood Peripheral NO GROWTH IN 2 DAYS 11/08/16 20:55 Anaerobic Blood Culture - Preliminary Resulted Blood Peripheral NO GROWTH IN 2 DAYS 11/08/16 20:50 Gram Stain - Final Complete Wound Foot 11/08/16 20:50 Wound Culture - Final Complete Staphylococcus Aureus Romina Rodríguez DPM Nov 11, 2016 10:40
[2016-11-11] MEDS: VANCOMYCIN 1,000 MG/NS 250 ML IV SCH ×2 (11:23)
[2016-11-11] MEDS: HEPARIN SODIUM - SQ 10,000 UNITS/ML VIAL SQ SCH ×2 (11:24→22:05)
[2016-11-11 12:00] VITALS: BP 122/64; PULSE 66; RESP 16; TEMP 97.3; O2SAT 98
--- NOTE | 2016-11-11 12:52 | HHI.DCPOC ---
Discharge Care Plan Diagnosis: (1) Diabetic infection of left foot (2) DM (diabetes mellitus) (3) HTN (hypertension) Goals to Promote Your Health * To prevent worsening of your condition and complications * To maintain your health at the optimal level Directions to Meet Your Goals Take your medications as prescribed Follow your dietary instruction Follow activity as directed Keep your appointments as scheduled Take your immunizations and boosters as scheduled If your symptoms worsen call your PCP, if no PCP go to Urgent Care Center or Emergency Room Smoking is Dangerous to Your Health. Avoid second hand smoke Call the 24-hour hour crisis hotline for domestic abuse at Jennifer Almazan PA-C Nov 11, 2016 12:52
[2016-11-11 16:00] VITALS: BP 129/65; PULSE 78; RESP 16; TEMP 97.4; O2SAT 98
--- NOTE | 2016-11-11 17:55 | HHI.PR ---
Subjective Remarks Followup for left diabetic foot infection and uncontrolled diabetes. The patient reports continued improvement of the erythema and warmth of the left foot. Denies any fevers or chills. Blood glucose uncontrolled today, currently 348. The patient reports compliance with diabetic diet. He states he has an upcoming appointment with his PCP Dr. Rebolledo next week. Objective Vitals Vital Signs Date Time Temp Pulse Resp B/P Pulse Ox O2 Delivery O2 Flow Rate FiO2 11/11/16 16:00 97.4 78 16 129/65 98 11/11/16 12:00 97.3 66 16 122/64 98 11/11/16 08:00 97.5 60 17 117/59 98 11/11/16 00:00 99.7 72 20 132/63 98 11/10/16 20:00 99.3 73 21 131/63 100 I/O 11/10/16 11/10/16 11/10/16 11/11/16 11/11/16 11/11/16 07:00 15:00 23:00 07:00 15:00 23:00 Intake Total 1903 ml 1812 ml 805 ml 846 ml 960 ml Output Total 1000 ml 600 ml 1500 ml 700 ml Balance 903 ml 1212 ml 805 ml -654 ml 260 ml Intake Oral 480 ml 800 ml 240 ml 240 ml 960 ml IV Total 1423 ml 1012 ml 565 ml 606 ml Output Urine Total 1000 ml 600 ml 1500 ml 700 ml # Voids 2 # Bowel Movements 1 0 0 1 Result Diagram: 11/09/16 0430 11/10/16 0504 Imaging Last Impressions Foot X-Ray 11/08/16 0000 Signed Impressions: Service Date/Time: Tuesday, November 08, 2016 21:07 - CONCLUSION: 1. No acute bony abnormalities. Conner Steel MD Objective Remarks GENERAL: Well-developed, well-nourished male patient in [facility]. SKIN: Warm and dry. HEENT: Atraumatic. Normocephalic. Pupils equal and round. Mucous membranes pink and moist. NECK: Trachea midline. CARDIOVASCULAR: Regular rate and rhythm. No murmur appreciated. RESPIRATORY: No accessory muscle use. Clear to auscultation. Breath sounds equal bilaterally. GASTROINTESTINAL: Abdomen soft, non-tender, nondistended. Hepatic and splenic margins not palpable. MUSCULOSKELETAL: Extremities without clubbing, cyanosis, or edema. Left 5th toe with erythema/edema extending to the mid foot, with small 2cm debrided wound at dorsal aspect of left 5th toe. NEUROLOGICAL: Awake and alert. No obvious cranial nerve deficits. Motor grossly within normal limits. Normal speech. PSYCHIATRIC: Appropriate mood and affect; insight and judgment normal. Medications and IVs Current Medications Medications (Trade) Dose Ordered Sig/Tricia Route Start Time Stop Time Status Last Admin (D50w (Vial) Inj) 25 ml UNSCH PRN IV PUSH 11/08/16 22:45 Glucagon 1 mg 1 mg UNSCH PRN OTHER 11/08/16 22:45 Pharmacy Profile Note 0 ml @ 0 mls/hr UNSCH OTHER 11/08/16 22:45 Cefepime HCl 1000 mg/Sodium Chloride 100 ml @ 200 mls/hr Q12H IV 11/09/16 00:00 11/11/16 12:54 (NS 1000 ml Inj) 1,000 ml @ 100 mls/hr Q10H IV 11/08/16 22:31 11/11/16 11:21 (NS Flush) 2 ml UNSCH PRN IV FLUSH 11/08/16 22:45 (NS Flush) 2 ml BID IV FLUSH 11/09/16 09:00 11/09/16 19:44 (Zofran Inj) 4 mg Q6H PRN IVP 11/08/16 22:45 (Dulcolax Supp) 10 mg DAILY PRN RECTAL 11/08/16 22:45 (Heparin Inj) 5,000 units Q12H SQ 11/08/16 23:00 11/11/16 11:24 (Tylenol) 650 mg Q6H PRN PO 11/08/16 22:45 ([place] 5-325 Mg) 1 tab Q4H PRN PO 11/08/16 22:45 (Morphine Inj) 2 mg Q3H PRN IV 11/08/16 22:45 (Lipitor) 20 mg HS PO 11/09/16 21:00 11/10/16 21:46 (PROzac) 40 mg DAILY PO 11/09/16 09:00 11/11/16 08:26 (Neurontin) 300 mg DAILY PO 11/09/16 09:00 11/11/16 08:26 (Protonix) 40 mg DAILY PO 11/09/16 09:00 11/11/16 08:26 (Prinivil) 10 mg DAILY PO 11/10/16 11:00 11/11/16 08:26 Carvedilol 3.125 mg 3.125 mg BID PO 11/10/16 21:00 11/11/16 08:26 (Vancomycin Inj/ NS 500 ml Inj) 515 ml @ 250 mls/hr Q12H IV 11/11/16 21:00 Miscellaneous Information SPECIFIC LAB TO BE DRAWN:VANCOMYCIN TROUGH DATE TO... ONCE ONCE .XX 11/13/16 08:45 11/13/16 08:46 (Levemir Inj) 18 units BID SQ 11/11/16 21:00 A/P Problem List: (1) Left foot infection ICD Code: L08.9 Status: Acute (2) EDGARDO (acute kidney injury) ICD Code: N17.9 Status: Acute (3) HTN (hypertension) ICD Code: I10 Status: Acute (4) DM (diabetes mellitus) ICD Code: E11.9 Status: Acute (5) Tobacco abuse ICD Code: Z72.0 Status: Acute Assessment and Plan 66-year-old male with a PMH of HTN, Hyperlipidemia, DM and Tobacco Abuse sent to the ER with complaints of left foot infection. States left 5th toe had gotten red w/ blister formation, seen by PCP and started on Augmentin yesterday. Diabetic Left Fifth Toe Infection, Failed Outpatient: seen by PCP prior to arrival, started on Augmentin w/ no improvement, +purulent drainage from 5th left toe. X-ray w/ no acute bony abnormality, images reviewed by me. Continue on IV Vanco/Cefepime. Blood cultures with NGTD. Wound culture with Staph aureus , only resistant to Levaquin/Penicillin. Consult Podiatry, recommends wound care with betadine wet to dry; SUSAN for baseline circulation assessment unremarkable. WBAT in post op shoe. Cleared for discharge by podiatry, f/up with Dr. Das in 1 week. Will transition to po antibiotics tomorrow. DM: Uncontrolled, noncompliant with diet, admits to eating more Easter candy recently. Hgb A1c 11.0 on 10/07/15. BS 523. S/p 10u Insulin in ED. Monitor Accu-cheks. Hgb A1c 11.5. Consult health promotion educator and administrative office manager. Restart patient's Levemir, blood glucose still uncontrolled will increase from patient' s 15u bid to 18u bid. Continue medium dose Novolog SSI. EDGARDO: Creatinine 1.64, previously 1.21 on 10/08/15. U/a negative, IVF, repeat labs today show much improvement, Cr 0.94. Resolved. HTN: BP 120's systolic. Resume home medications, restarted lisinopril with resolution of EDGARDO. Tobacco Abuse: Pt counselled. Ativan/NicoDerm prn if needed. DVT Prophylaxis: Mechanical contraindication in light of injury/wound. Discussed with patient, health promotion educator, RN at bedside. Written by Jennifer Almazan, acting as scribe for Dr. You on 11/11/16 at 16: 35. Discharge Planning Likely discharge tomorrow if blood glucose better controlled. Attending Statement This note was transcribed by scribe Jennifer Almazan. I, Dr. Kriss You personally performed the history, physical exam, and medical decision making; and confirmed the accuracy of the information in the transcribed note. Jennifer Almazan PA-C Nov 11, 2016 17:55 Kriss You MD Nov 11, 2016 19:15
[2016-11-11 20:00] VITALS: BP 136/73; PULSE 64; RESP 21; TEMP 98.4; O2SAT 100
[2016-11-11] MEDS: VANCOMYCIN INJ 1,500 MG in SODIUM CHLORID 0.9% 500 ML INJ 500 ML IV SCH (22:04)
[2016-11-11] MEDS: ATORVASTATIN 20 MG TAB PO SCH (22:05)
[2016-11-12] VITALS: BP 133/63; PULSE 76; RESP 21; TEMP 97.7; O2SAT 99
[2016-11-12] MEDS: CEFEPIME INJ 1,000 MG in SODIUM CHLORIDE 0.9% INJ 100 ML IV SCH ×2 (01:11→12:01)
[2016-11-12] MEDS: SODIUM CHLOR 0.9% 1000 ML INJ 1,000 ML IV SCH (03:51)
[2016-11-12] MEDS: INSULIN ASPART SUPPLEMENTAL SCALE SQ SCH ×2 (06:11→11:16)
[2016-11-12] MEDS: PANTOPRAZOLE SOD 40 MG DELAYED RELEASE TAB PO SCH (07:59)
[2016-11-12] MEDS: FLUoxetine HCL 20 MG CAP PO SCH (07:59)
[2016-11-12 08:00] VITALS: BP 127/60; PULSE 66; RESP 16; TEMP 97.5; O2SAT 99
[2016-11-12] MEDS: CARVEDILOL 3.125 MG TAB PO SCH (08:00)
[2016-11-12] MEDS: GABAPENTIN 300 MG CAP PO SCH (08:00)
[2016-11-12] MEDS: LISINOPRIL 10 MG TAB PO SCH (08:00)
[2016-11-12] MEDS: SODIUM CHLORIDE 0.9% FLUSH 10 ML FLUSH IV FLUSH SCH (08:00)
[2016-11-12] MEDS: INSULIN DETEMIR 100 UNITS/ML VIAL SQ SCH (08:22)
[2016-11-12] MEDS: VANCOMYCIN INJ 1,500 MG in SODIUM CHLORID 0.9% 500 ML INJ 500 ML IV SCH (09:11)
[2016-11-12] MEDS ORDERED: LEVEMIR SQ (10:17)
[2016-11-12] MEDS ORDERED: DOXY100C PO (10:17)
--- NOTE | 2016-11-12 10:17 | HHI.DS ---
cc: Max DasM; Dr. Rebolledo Discharge Summary Admission Date Nov 08, 2016 at 10:30 pm Discharge Date: Nov 12, 2016 Admitting Diagnosis left foot abscess/cellulitis, hyperglycemia (1) Diabetic infection of left foot ICD Code: E11.69 Diagnosis: Principal (2) EDGARDO (acute kidney injury) ICD Code: N17.9 Diagnosis: Secondary (3) HTN (hypertension) ICD Code: I10 Diagnosis: Secondary (4) DM (diabetes mellitus) ICD Code: E11.9 Diagnosis: Principal (5) Tobacco abuse ICD Code: Z72.0 Diagnosis: Secondary Procedures Bedside I&D left foot wound by Dr. Das Brief History - From Admission This is a 66-year-old male with a PMH of HTN, Hyperlipidemia, DM and Tobacco Abuse sent to the ER with complaints of left foot infection. States left 5th toe had gotten red w/ blister formation, seen by PCP and started on Augmentin yesterday. Today, noted the redness had gotten progressively worse, states blister popped, +purulent drainage. Denies fever or chills. On arrival, BP 122 /56, HR 75, O2 sat 97% on RA, Temp 99.1. CBC unremarkable. Creatinine 1.64, previously 1.21 on 10/08/15. BS 523. Lactic Acid 1.7. INR 0.9. UA negative. Foot X-ray with no acute bony abnormalities. S/p Blood/Wound Cultures in ER and given Vanc IV CBC/BMP: 11/09/16 0430 11/12/16 0439 Significant Findings Laboratory Tests Test 11/10/16 11/10/16 05:04 10:30 Estimat Glomerular Filtration 80 ML/MIN (>89) Rate Vancomycin Level Trough 11.7 MCG/ML (5.0-10.0) Imaging Last Impressions Foot X-Ray 11/08/16 0000 Signed Impressions: Service Date/Time: Tuesday, November 08, 2016 21:07 - CONCLUSION: 1. No acute bony abnormalities. Conner Steel MD PE at Discharge GENERAL: Well-developed, well-nourished male patient in [facility]. SKIN: Warm and dry. HEENT: Atraumatic. Normocephalic. Pupils equal and round. Mucous membranes pink and moist. NECK: Trachea midline. CARDIOVASCULAR: Regular rate and rhythm. No murmur appreciated. RESPIRATORY: No accessory muscle use. Clear to auscultation. Breath sounds equal bilaterally. GASTROINTESTINAL: Abdomen soft, non-tender, nondistended. Hepatic and splenic margins not palpable. MUSCULOSKELETAL: Extremities without clubbing, cyanosis, or edema. Left dorsal foot at base of 5th toe with small 2cm debrided wound, minimal surrounding erythema today, much improved. NEUROLOGICAL: Awake and alert. No obvious cranial nerve deficits. Motor grossly within normal limits. Normal speech. PSYCHIATRIC: Appropriate mood and affect; insight and judgment normal. Pt update on day of discharge Follow up for left foot diabetic infection and uncontrolled diabetes. The patient reports his left foot pain, erythema, edema has greatly improved. Denies fevers/chills. Blood sugars well controlled today. He wants to go home. Patient declines 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 Hospital Course 66-year-old male with a PMH of HTN, Hyperlipidemia, DM and Tobacco Abuse sent to the ER with complaints of left foot infection. States left 5th toe had gotten red w/ blister formation, seen by PCP and started on Augmentin yesterday. Diabetic Left Fifth Toe Infection, Failed Outpatient: seen by PCP prior to arrival, started on Augmentin w/ no improvement, +purulent drainage from 5th left toe. X-ray w/ no acute bony abnormality, images reviewed by me. Continued on IV Vanco/Cefepime. Blood cultures with NGTD. Wound culture with Staph aureus, only resistant to Levaquin/Penicillin. Consult Podiatry, s/p bedside I&D, recommends wound care with NS, xeroform, 2x2, brenda, and tape. SUSAN for baseline circulation assessment unremarkable. WBAT in post op shoe. Cleared for discharge by podiatry, f/up with Dr. Das in 1 week. Transition to po Doxycycline [id number] at discharge. 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 DM: Uncontrolled, noncompliant with diet, admits to eating more Easter candy recently. Hgb A1c 11.0 on 10/07/15. BS 523. S/p 10u Insulin in ED. Monitor Accu-cheks. Hgb A1c 11.5. Consulted health promotion educator and database programmer. Restart patient's Levemir, blood glucose still uncontrolled, increased patient's 15u bid to 18u bid. Continue medium dose Novolog SSI. Blood sugars better controlled today. Stable for discharge. EDGARDO: Creatinine 1.64, previously 1.21 on 10/08/15. U/a negative, IVF, repeat labs today show much improvement, Cr 0.94. Resolved. HTN: BP 120's systolic. Resume home medications, restarted lisinopril with resolution of EDGARDO. Tobacco Abuse: Pt counselled. Ativan/NicoDerm prn if needed. DVT Prophylaxis: Mechanical contraindication in light of injury/wound. Discussed with patient, RN at bedside. Written by Jennifer Almazan, acting as scribe for Dr. You on 11/12/16 at 10: 00. Pt Condition on Discharge: Good Discharge Disposition: Discharge Home Discharge Time: > 30 minutes Discharge Instructions DIET: Follow Instructions for: As Tolerated, No Restrictions Follow up Referrals: PCP Follow-up - 2-3 Days with Elder Rebolledo MD Podiatry - 1 Week with Max Das DPM New Medications: Doxycycline Hyclate (Doxycycline Hyclate) 100 Mg Cap 100 MG PO BID Infection #28 Ref 0 CAP Insulin Detemir Inj (Levemir Inj) 1,000 unit/ 10 ML Vial 18 UNITS SQ BID Blood Sugar Management #100 INJECTION Continued Medications: Atorvastatin (Atorvastatin) 20 Mg Tab 20 MG PO HS Cholesterol Management #30 Ref 0 TAB Carvedilol (Carvedilol) 3.125 Mg Tab 3.125 MG PO BID #60 Ref 0 TAB Fluoxetine (Fluoxetine) 40 Mg Cap 40 CAP PO DAILY #30 Ref 0 CAP Gabapentin (Gabapentin) 300 Mg Cap 300 MG PO DAILY #30 Ref 0 CAP Insulin Human Regular Inj (Novolin R Inj) 1,000 Unit/10 Ml Vial 1-9 UNITS SQ ACHS SLIDING SCALE Max dose at bedtime:( )units; sugars less than 70,(0) units; sugars 150-199,(1)unit; sugars 200-249,(3)units; sugars 250-299,(5 ) units; sugars 300-349,(7)units; sugars greater than 349,(9)units Blood Sugar Management #10 Ref 0 ML Lisinopril (Lisinopril) 10 Mg Tab 10 MG PO DAILY #30 Ref 0 TAB Pantoprazole (Pantoprazole) 40 Mg Tab 40 MG PO DAILY Reflux #30 Ref 0 TAB Discontinued Medications: Insulin Detemir Inj (Levemir Inj) 1,000 unit/ 10 ML Vial 15 UNITS SQ BID Do not mix with any other Insulin. Blood Sugar Management Ref 0 VIAL Additional Information This note was transcribed by [email or web address]. I, Dr. Kriss You personally performed the history, physical exam, and medical decision making; and confirmed the accuracy of the information in the transcribed note. Authenticated by Dr. Kriss You on 11/14/16 at 13:35. Jennifer Almazan PA-C Nov 12, 2016 10:17 Kriss You MD Nov 14, 2016 13:35
[2016-11-12] MEDS ORDERED: PHARMACY ORDERED LAB ONE (10:45)
[2016-11-12] MEDS: HEPARIN SODIUM - SQ 10,000 UNITS/ML VIAL SQ SCH (11:16)
[2016-11-12 11:58] VITALS: BP 127/69; PULSE 74; RESP 16; TEMP 98.3; O2SAT 100
[2016-11-13] MEDS ORDERED: PHARMACY ORDERED LAB ONE (08:45)
== END 2016-11-12 14:19 | disposition home or self-care (01) | DRG 638 ==
LOC: NEPE 20:15 → NEDA 22:30 → N07A 11-09 00:54
PROVIDERS: ADMIT Family Medicine; ATTEND Family Medicine
DX: E11.628 Type 2 diabetes mellitus with other skin complications (principal); L02.612 Cutaneous abscess of left foot; L97.529 Non-pressure chronic ulcer of other part of left foot with unspecified severity; N17.9 Acute kidney failure, unspecified; E11.621 Type 2 diabetes mellitus with foot ulcer; L03.116 Cellulitis of left lower limb; E11.65 Type 2 diabetes mellitus with hyperglycemia; Z79.4 Long term (current) use of insulin; I10 Essential (primary) hypertension; F17.210 Nicotine dependence, cigarettes, uncomplicated; E78.5 Hyperlipidemia, unspecified; K21.9 Gastro-esophageal reflux disease without esophagitis
CPT/HCPCS: 73630; 80053; 80202; 81001; 82565; 82948; 83036; 83605; 85025; 85610; 85730; 86403; 87040; 87070; 87086; 87147; 87186; 87205; 93922; 96374; J0692; J1644; J1815; J3370; J7030; J7040; J7050; L3260

== ENCOUNTER 2016-12-19 18:58 | Inpatient (IN) | payer OTHER, MEDICARE ==
[~2016-12-19] VITALS: Ht 182.9 cm; Wt 74.9 kg
[~2016-12-19 18:58] MED LIST changes: -ALBU8I INH; -AMLO5 PO; +ATOR20TA15 PO; +CARV3.12 PO; +DOXY100C PO; +FLUO40CA PO; +GABA300C5 PO; -LIPI20TA PO; +LISI10TA3 PO; -NOVOLOGP2 SQ; +NOVORP2 SQ; +PANT40TA3 PO; -PROT40TA PO; -PROZ20CA11 PO; -TIOT18I INH
[2016-12-19 19:02] VITALS: BP 105/53; PULSE 81; RESP 14; TEMP 98.9; O2SAT 98
[2016-12-19] MEDS ORDERED: SODIUM CHLOR 0.9% 1000 ML INJ 1,000 ML IV SCH ×3 (19:44→19:56)
[2016-12-19] MEDS ORDERED: ONDANSETRON HCL 4 MG/2 ML VIAL IV PUSH ONE (19:45)
[2016-12-19 19:56] LABS: BLOOD GAS BASE EXCESS -9.4 mmol/L (-2-2); BLOOD GAS CARBOXYHEMOGLOBIN 2.3 % (0-4); BLOOD GAS HCO3 14 mmol/L (22-26); BLOOD GAS METHEMOGLOBIN 0.7 % (0-2); BLOOD GAS O2 HGB SATURATION 96 % (90-100); BLOOD GAS OXYGEN CONTENT 20.1 Vol % (12.0-20.0); BLOOD GAS PCO2 19 mmHg (38-42); BLOOD GAS PO2 109 mmHG (61-120); BLOOD GAS TOTAL HGB 14.9 G/DL (12.0-16.0); CRITICAL VALUE YES; DRAW SITE RT RADIAL; FIO2 21 %; NUMBER OF ARTERIAL PUNCTURES 1; OXYGEN DEVICE ROOM AIR; STAT YES; TEMP CORR TO 98.6; ULNAR PULSE PRESENT
[2016-12-19] MEDS ORDERED: DEXT 5%-NACL 0.9% 1000 ML INJ 1,000 ML IV SCH (19:56)
[2016-12-19] MEDS ORDERED: SODIUM PHOSPHATE INJ 15 MMOL in SODIUM CHLORIDE 0.9% INJ 100 ML IV PRN ×2 (20:00→21:15)
[2016-12-19] MEDS ORDERED: POTASSIUM CHLOR 20 MEQ PREMIX 100 ML IV PRN ×12 (20:00→21:15)
[2016-12-19] MEDS ORDERED: INSULIN REGULAR (IV INFUSION) 100 UNITS in SODIUM CHLORIDE 0.9% INJ 99 ML IV SCH ×2 (20:00→21:15)
[2016-12-19] MEDS ORDERED: INSULIN HUMAN REGULAR 1,000 UNITS/10 ML VIAL SQ ONE ×2 (20:00→20:15)
[2016-12-19] MEDS ORDERED: POTASSIUM CHLOR 40 MEQ PREMIX 100 ML IV PRN ×4 (20:00→21:15)
[2016-12-19] MEDS ORDERED: SODIUM BICARBONATE 8.4% SOLN 50 MEQ/50 ML VIAL IV PRN ×2 (20:00)
[2016-12-19 20:15] LABS: AUTOMATED NEUTROPHIL # 10.9 TH/MM3 (1.8-7.7); BASOPHIL % 0.2 % (0.0-2.0); HEMATOCRIT 46.4 % (39.0-51.0); HEMO FLAGS DIFF FINAL; LYMPH % 9.8 % (9.0-44.0); LYMPHOCYTE # 1.3 TH/MM3 (1.0-4.8); MEAN CELL VOLUME 93.7 FL (80.0-100.0); MEAN CORPUSCULAR HEMOGLOBIN 30.8 PG (27.0-34.0); MEAN CORPUSCULAR HGB CONC 32.9 % (32.0-36.0); PLATELET COUNT 240 TH/MM3 (150-450); RED BLOOD COUNT 4.95 MIL/MM3 (4.50-5.90); WHITE BLOOD COUNT 13.4 TH/MM3 (4.0-11.0)
--- NOTE | 2016-12-19 20:35 | RADRPT ---
EXAM DATE/TIME: 12/19/2016 20:05 [place] COMPARISON: CHEST SINGLE AP, October 08, 2015, 9:45. INDICATIONS : General weakness, shaking, and shortness of breath. MEDICAL HISTORY : Chronic obstructive pulmonary disease. SURGICAL HISTORY : Pacemaker. ENCOUNTER: Initial ACUITY: 1 day PAIN SCORE: 0/10 LOCATION: Bilateral chest FINDINGS: A single portable frontal view the chest shows stable mild cardiomegaly. No pulmonary vascular engorg ement. Clear lungs. No effusions. Right upper lobe calcified granuloma. Left pacing device. CONCLUSION: Stable mild cardiomegaly without acute cardiopulmonary disease. Kulwant Mancera Jr., MD on December 19, 2016 at 20:32 Board Certified Radiologist. This report was verified electronically.
[2016-12-19 20:43] LABS: ALT (GPT) 28 U/L (12-78); ANION GAP 26 MEQ/L (5-15); AST (GOT) 27 U/L (15-37); BICARBONATE 18.2 MEQ/L (21.0-32.0); BLOOD UREA NITROGEN 53 MG/DL (7-18); CHLORIDE 83 MEQ/L (98-107); GLOMERULAR FILTRATION RATE 24 ML/MIN (>89); MAGNESIUM 2.4 MG/DL (1.5-2.5); SODIUM (NA) 127 MEQ/L (136-145); TOTAL BILIRUBIN ADULT 0.9 MG/DL (0.2-1.0)
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
--- NOTE | 2016-12-19 20:47 | PD ---
Physical Exam Date Seen by Provider: December 19, 2016 Time Seen by Provider: 20:42 Narrative 66-year-old male came to the emergency room with history of nausea and vomiting that started yesterday and has been pretty much consistently since then. Patient was seen by the PA and I'm supervising him. Patient has history of diabetes and has had DKA in the past. His blood sugar bedside was 590. I have recommended to start the patient on subcutaneous insulin 10 units along with DKA protocol. ABG done is highly suggestive of metabolic acidosis even though his pH is compensated. Patient has history of cardiomyopathy with EF of 30-35% . Patient will require fluid resuscitation given his possible DKA and a metabolic acidosis. However I recommended to be cautious with the fluid boluses that will be given. I spoke with his and explained about the possibility of DKA and admission. She understands. Data Data Last Documented VS Vital Signs Date Time Temp Pulse Resp B/P Pulse Ox O2 Delivery O2 Flow Rate FiO2 12/19/16 21:00 75 14 151/67 98 Room Air 12/19/16 19:02 98.9 Orders Electrocardiogram (12/19/16 19:44) Complete Blood Count With Diff (12/19/16 19:44) Comprehensive Metabolic Panel (12/19/16 19:44) Arterial Blood Gas (Abg) (12/19/16 19:44) Urinalysis - C+S If Indicated (12/19/16 19:44) Magnesium (Mg) (12/19/16 19:44) Beta Hydroxybutyrate (Acetone) (12/19/16 19:44) Chest, Single Ap (12/19/16 19:44) Iv Access Insert/Monitor (12/19/16 19:44) Ecg Monitoring (12/19/16 19:44) Oximetry (12/19/16 19:44) Sodium Chlor 0.9% 1000 Ml Inj (Ns 1000 M (12/19/16 19:44) Sodium Chlor 0.9% 1000 Ml Inj (Ns 1000 M (12/19/16 19:44) Ondansetron Inj (Zofran Inj) (12/19/16 19:45) Insulin Human Regular Inj (Novolin R Inj (12/19/16 20:00) Senior Software Engineer Analytics / Telemetry ERROL.Q8H (12/19/16 19:56) ^ Insert Iv (12/19/16 19:56) Sodium Chlor 0.9% 1000 Ml Inj (Ns 1000 M (12/19/16 19:56) Dext 5%-Nacl 0.9% 1000 Ml Inj (D5w-Ns 10 (12/19/16 19:56) Insulin Regular (Iv Infusion) (Novolin R (12/19/16 20:00) Potassium Chlor 40 Meq Premix (Kcl 40 Me (12/19/16 20:00) Potassium Chlor 40 Meq Premix (Kcl 40 Me (12/19/16 20:00) Potassium Chlor 20 Meq Premix (Kcl 20 Me (12/19/16 20:00) Potassium Chlor 20 Meq Premix (Kcl 20 Me (12/19/16 20:00) Potassium Chlor 20 Meq Premix (Kcl 20 Me (12/19/16 20:00) Potassium Chlor 20 Meq Premix (Kcl 20 Me (12/19/16 20:00) Potassium Chlor 20 Meq Premix (Kcl 20 Me (12/19/16 20:00) Potassium Chlor 20 Meq Premix (Kcl 20 Me (12/19/16 20:00) Sodium Bicarbonate 8.4% Inj (Sodium Bica (12/19/16 20:00) Sodium Bicarbonate 8.4% Inj (Sodium Bica (12/19/16 20:00) Sodium Phosphate Inj (Sodium Phosphate I (12/19/16 20:00) Basic Metabolic Panel (Bmp) (12/20/16 00:56) Basic Metabolic Panel (Bmp) (12/20/16 06:56) Basic Metabolic Panel (Bmp) (12/20/16 12:56) Basic Metabolic Panel (Bmp) (12/20/16 18:56) Magnesium (Mg) (12/20/16 00:56) Magnesium (Mg) (12/20/16 06:56) Magnesium (Mg) (12/20/16 12:56) Magnesium (Mg) (12/20/16 18:56) Phosphorus (Po4) (12/20/16 00:56) Phosphorus (Po4) (12/20/16 06:56) Phosphorus (Po4) (12/20/16 12:56) Phosphorus (Po4) (12/20/16 18:56) Beta Hydroxybutyrate (Acetone) (12/20/16 06:56) Beta Hydroxybutyrate (Acetone) (12/20/16 18:56) Troponin I (12/19/16 19:56) Insulin Human Regular Inj (Novolin R Inj (12/19/16 20:15) Drug Screen, Random Urine (12/19/16 21:03) Admit Order (Ed Use Only) (12/19/16 21:06) Labs Laboratory Tests Test 12/19/16 12/19/16 19:45 19:58 Blood Gas Puncture Site RT RADIAL Blood Gas Patient Temperature 98.6 Blood Gas HCO3 14 mmol/L Blood Gas Base Excess -9.4 mmol/L Blood Gas Oxygen Saturation 96 % Arterial Blood pH 7.47 Arterial Blood Partial 19 mmHg Pressure CO2 Arterial Blood Partial 109 mmHG Pressure O2 Arterial Blood Oxygen Content 20.1 Vol % Arterial Blood 2.3 % Carboxyhemoglobin Arterial Blood Methemoglobin 0.7 % Blood Gas Hemoglobin 14.9 G/DL Oxygen Delivery Device ROOM AIR Blood Gas Inspired Oxygen 21 % White Blood Count 13.4 TH/MM3 Red Blood Count 4.95 MIL/MM3 Hemoglobin 15.2 GM/DL Hematocrit 46.4 % Mean Corpuscular Volume 93.7 FL Mean Corpuscular Hemoglobin 30.8 PG Mean Corpuscular Hemoglobin 32.9 % Concent Red Cell Distribution Width 14.0 % Platelet Count 240 TH/MM3 Mean Platelet Volume 9.0 FL Neutrophils (%) (Auto) 82.0 % Lymphocytes (%) (Auto) 9.8 % Monocytes (%) (Auto) 8.0 % Eosinophils (%) (Auto) 0.0 % Basophils (%) (Auto) 0.2 % Neutrophils # (Auto) 10.9 TH/MM3 Lymphocytes # (Auto) 1.3 TH/MM3 Monocytes # (Auto) 1.1 TH/MM3 Eosinophils # (Auto) 0.0 TH/MM3 Basophils # (Auto) 0.0 TH/MM3 CBC Comment DIFF FINAL Differential Comment Sodium Level 127 MEQ/L Potassium Level 4.9 MEQ/L Chloride Level 83 MEQ/L Carbon Dioxide Level 18.2 MEQ/L Anion Gap 26 MEQ/L Blood Urea Nitrogen 53 MG/DL Creatinine 2.65 MG/DL Estimat Glomerular Filtration 24 ML/MIN Rate Random Glucose 635 MG/DL Calcium Level 9.1 MG/DL Magnesium Level 2.4 MG/DL Total Bilirubin 0.9 MG/DL Aspartate Amino Transf 27 U/L (AST/SGOT) Alanine Aminotransferase 28 U/L (ALT/SGPT) Alkaline Phosphatase 149 U/L Troponin I 0.08 NG/ML Total Protein 7.4 GM/DL Albumin 3.7 GM/DL B-Hydroxybutyrate 10.81 MMOL/L Hemoglobin A1c 10.6 % MDM Supervised Visit with KIMMIE: Yes Critical Care Narrative Aggregate critical care time was 30 minutes. Time to perform other separately billable procedures was not included in the critical care time. My time did not include minutes spent treating any other patients simultaneously or on activities that did not directly contribute to the patient's treatment. The services I provided to this patient were to treat and/or prevent clinically significant deterioration that could result in: DKA, fluid resuscitation, insulin bolus and drip I provided critical care services requiring my management, as noted below: Chart data review, documentation time, medication orders and management, vital sign assessments/reviewing monitor data, ordering and reviewing lab tests, ordering and interpreting/reviewing x-rays and diagnostic studies, care of the patient and discussion of the patient with the admitting physicians. Tenzin Sanders MD December 19, 2016 20:47
[2016-12-19 20:48] LABS: POTASSIUM 4.9 MEQ/L (3.5-5.1)
[2016-12-19 20:58] LABS: ALKALINE PHOSPHATASE 149 U/L (45-117); BETA-HYDROXYBUTYRATE 10.81 MMOL/L (0.00-0.39)
[2016-12-19 21:00] VITALS: BP 151/67; PULSE 75; RESP 14; O2SAT 98
[2016-12-19] MEDS: SODIUM CHLOR 0.9% 1000 ML INJ 1,000 ML IV SCH ×3 (21:11→21:22)
[2016-12-19] MEDS: DEXT 5%-NACL 0.9% 1000 ML INJ 1,000 ML IV SCH (21:11)
[2016-12-19] MEDS ORDERED: MISCELLANEOUS NURSING INFORMATION XX SCH ×2 (21:15→21:30)
[2016-12-19] MEDS ORDERED: CHLORHEXIDINE GLUCONATE 2 % 1 PACK (2 CLOTHS) TOP PRN ×2 (21:15→21:30)
[2016-12-19] MEDS ORDERED: SENNOSIDES 8.6 MG TAB PO PRN (21:30)
[2016-12-19] MEDS ORDERED: ONDANSETRON HCL 4 MG/2 ML VIAL IV PRN (21:30)
[2016-12-19] MEDS ORDERED: ACETAMINOPHEN 325 MG TAB PO PRN (21:30)
[2016-12-19] MEDS ORDERED: MAGNESIUM HYDROXIDE SUSP 30 ML CUP PO PRN (21:30)
[2016-12-19] MEDS ORDERED: LACTULOSE SYRUP 20 GM/30 ML CUP PO PRN (21:30)
[2016-12-19] MEDS ORDERED: BISACODYL 10 MG SUPP RECTAL PRN (21:30)
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
[2016-12-19] MEDS: HEPARIN SODIUM - SQ 10,000 UNITS/ML VIAL SQ SCH (22:07)
[2016-12-19 22:13] LABS: BLOOD, URINE NEG (NEG); COMMENT (UR) CULT NOT INDICATED; CULTURE IF INDICATED CULT NOT INDICATED; GLUCOSE,URINE 1000 mg/dL (NEG); HYALINE CAST, URINE 17 /lpf (RARE); KETONE, URINE 40 mg/dL (NEG); NITRITE,URINE NEG (NEG); URINE COLOR YELLOW (YELLW/STRAW)
[2016-12-19 22:25] LABS: AMPHETAMINE, URINE NEG (NEG); BARBITURATES, URINE NEG (NEG); COCAINE, URINE NEG (NEG)
[2016-12-19 22:30] VITALS: O2SAT 98
[2016-12-19 22:31] VITALS: BP 133/62; PULSE 77; RESP 16; TEMP 99.2; O2SAT 97
[2016-12-20] VITALS (13 sets, daily range): BP systolic 108–135; BP diastolic 53–65; PULSE 56–82; RESP 14–28; TEMP 98.6–99.4; O2SAT 93–98
[2016-12-20] MEDS: SODIUM CHLOR 0.9% 1000 ML INJ 1,000 ML IV SCH ×4 (01:11→16:13)
[2016-12-20] MEDS: DEXT 5%-NACL 0.9% 1000 ML INJ 1,000 ML IV SCH (01:39)
[2016-12-20 02:20] LABS: BICARBONATE 28.7 MEQ/L (21.0-32.0)
[2016-12-20] MEDS ORDERED: CHLORHEXIDINE GLUCONATE 2 % 1 PACK (2 CLOTHS) TOP SCH (04:00)
[2016-12-20] MEDS: CHLORHEXIDINE GLUCONATE 2 % 1 PACK (2 CLOTHS) TOP SCH (04:00)
[2016-12-20 08:06] LABS: BETA-HYDROXYBUTYRATE 2.02 MMOL/L (0.00-0.39); BICARBONATE 29.4 MEQ/L (21.0-32.0); MAGNESIUM 2.1 MG/DL (1.5-2.5)
[2016-12-20] MEDS: INSULIN NovoLIN REGULAR SUPPLEMENTAL SCALE SQ SCH ×4 (08:45→20:00)
[2016-12-20] MEDS ORDERED: DEXTROSE 50% IN WATER 50 ML VIAL(D50) IV PRN (08:45)
[2016-12-20] MEDS ORDERED: GLUCAGON 1 MG/ML VIAL OTHER PRN (08:45)
--- NOTE | 2016-12-20 08:52 | HHI.CCPN ---
Subjective Remarks/Hospital Course 66 y/o man who is inconsistent with his insulin compliance presents in DKA. Dehydrated. No chest pain. + SOB. 12/20 Patient is on insulin drip 3.7u/hr , AG closed this morning ( 10) Renal function improving with hydration Cr: 1.63 today from 1.98) Awake and alert requesting something to eat. Afebrile. Objective Vital Signs Date Time Temp Pulse Resp B/P Pulse Ox O2 Delivery O2 Flow Rate FiO2 12/20/16 06:00 65 12/20/16 04:00 98.9 23 119/57 97 12/19/16 22:30 21 12/19/16 21:00 Room Air Result Diagram: 12/19/16 1958 12/20/16 0541 Other Results Laboratory Tests Test 12/19/16 12/19/16 12/19/16 12/19/16 19:45 19:58 21:27 22:30 Blood Gas Puncture Site RT RADIAL Blood Gas Patient Temperature 98.6 Blood Gas HCO3 14 mmol/L Blood Gas Base Excess -9.4 mmol/L Blood Gas Oxygen Saturation 96 % Arterial Blood pH 7.47 Arterial Blood Partial 19 mmHg Pressure CO2 Arterial Blood Partial 109 mmHG Pressure O2 Arterial Blood Oxygen Content 20.1 Vol % Arterial Blood 2.3 % Carboxyhemoglobin Arterial Blood Methemoglobin 0.7 % Blood Gas Hemoglobin 14.9 G/DL Oxygen Delivery Device ROOM AIR Blood Gas Inspired Oxygen 21 % White Blood Count 13.4 TH/MM3 Red Blood Count 4.95 MIL/MM3 Hemoglobin 15.2 GM/DL Hematocrit 46.4 % Mean Corpuscular Volume 93.7 FL Mean Corpuscular Hemoglobin 30.8 PG Mean Corpuscular Hemoglobin 32.9 % Concent Red Cell Distribution Width 14.0 % Platelet Count 240 TH/MM3 Mean Platelet Volume 9.0 FL Neutrophils (%) (Auto) 82.0 % Lymphocytes (%) (Auto) 9.8 % Monocytes (%) (Auto) 8.0 % Eosinophils (%) (Auto) 0.0 % Basophils (%) (Auto) 0.2 % Neutrophils # (Auto) 10.9 TH/MM3 Lymphocytes # (Auto) 1.3 TH/MM3 Monocytes # (Auto) 1.1 TH/MM3 Eosinophils # (Auto) 0.0 TH/MM3 Basophils # (Auto) 0.0 TH/MM3 CBC Comment DIFF FINAL Differential Comment Sodium Level 127 MEQ/L Potassium Level 4.9 MEQ/L Chloride Level 83 MEQ/L Carbon Dioxide Level 18.2 MEQ/L Anion Gap 26 MEQ/L Blood Urea Nitrogen 53 MG/DL Creatinine 2.65 MG/DL Estimat Glomerular Filtration 24 ML/MIN Rate Random Glucose 635 MG/DL Calcium Level 9.1 MG/DL Magnesium Level 2.4 MG/DL Total Bilirubin 0.9 MG/DL Aspartate Amino Transf 27 U/L (AST/SGOT) Alanine Aminotransferase 28 U/L (ALT/SGPT) Alkaline Phosphatase 149 U/L Troponin I 0.08 NG/ML Total Protein 7.4 GM/DL Albumin 3.7 GM/DL B-Hydroxybutyrate 10.81 MMOL/L Urine Color YELLOW Urine Turbidity CLEAR Urine pH 5.0 Urine Specific Langston 1.015 Urine Protein NEG mg/dL Urine Glucose (UA) 1000 mg/dL Urine Ketones 40 mg/dL Urine Occult Blood NEG Urine Nitrite NEG Urine Bilirubin NEG Urine Urobilinogen LESS THAN 2.0 MG/DL Urine Leukocyte Esterase NEG Urine WBC LESS THAN 1 /hpf Urine Hyaline Casts 17 /lpf Microscopic Urinalysis Comment CULT NOT INDICATED Urine Opiates Screen NEG Urine Barbiturates Screen NEG Urine Amphetamines Screen NEG Urine Benzodiazepines Screen NEG Urine Cocaine Screen NEG Urine Cannabinoids Screen POS Nasal Screen MRSA (PCR) MRSA NOT DETECTED Test 12/20/16 12/20/16 00:34 05:41 Sodium Level 140 MEQ/L 140 MEQ/L Potassium Level 4.0 MEQ/L 4.0 MEQ/L Chloride Level 101 MEQ/L 101 MEQ/L Carbon Dioxide Level 28.7 MEQ/L 29.4 MEQ/L Anion Gap 10 MEQ/L 10 MEQ/L Blood Urea Nitrogen 49 MG/DL 46 MG/DL Creatinine 1.98 MG/DL 1.63 MG/DL Estimat Glomerular Filtration 34 ML/MIN 42 ML/MIN Rate Random Glucose 271 MG/DL 181 MG/DL Calcium Level 7.9 MG/DL 7.9 MG/DL Phosphorus Level 2.7 MG/DL 2.8 MG/DL Magnesium Level 2.0 MG/DL 2.1 MG/DL B-Hydroxybutyrate 2.02 MMOL/L Objective Remarks GENERAL: Patient is 66 yo luing in bed in NAD SKIN: Warm and dry. HEAD: Normocephalic. EYES: No scleral icterus. No injection or drainage. NECK: Supple, trachea midline. No JVD or lymphadenopathy. CARDIOVASCULAR: Regular rate and rhythm without murmurs, gallops, or rubs. RESPIRATORY: Breath sounds equal bilaterally. No accessory muscle use. GASTROINTESTINAL: Abdomen soft, non-tender, nondistended. MUSCULOSKELETAL: No cyanosis, or edema. Neuro: awake and alert A/P Assessment and Plan 1)DKA 2)AG MA- resolved 3)EDGARDO on CKD- improving 4)Dehydration. 5)Leukocytosis Plan Neuro: Awake and alert Pulm: Oxygen PRN keep sat >92% CV: Monitor HR and BP keep MAP>65mmHg On COreg 3.125mg BID, Lipitor 20mg qhs : Monitor renal function, I/O's, electrolytes replacement per protocol. Renal function is improving with Cr: 1.63 from 1.98 Change IVF NS@100 ml/hr GI: Start PO diabetic diet, on Pepcid 10mg Q12 ID: Monitor for signs of infections ( Fever, WBC) Endo: Transition from insulin drip to SSI with accuchecks Q4, AG closed (10) Place on Levemir 5u Q12 Heme: Monitor CBC GI prophylaxis -on Pepcid DVT prophylaxis- on Heparin SQ Will sign off and transfer care to [facility] Level 3 Yg Reilly MD December 20, 2016 08:52
[2016-12-20] MEDS: FAMOTIDINE 20 MG TAB PO SCH ×2 (09:00→22:08)
[2016-12-20] MEDS: DOCUSATE SODIUM 50 MG/SENNA 8.6 MG TAB PO SCH ×2 (09:00→22:08)
[2016-12-20] MEDS ORDERED: FAMOTIDINE 20 MG TAB PO SCH (09:00)
[2016-12-20] MEDS: CARVEDILOL 3.125 MG TAB PO SCH ×3 (09:00→22:05)
[2016-12-20] MEDS: HEPARIN SODIUM - SQ 10,000 UNITS/ML VIAL SQ SCH ×2 (09:01→22:08)
[2016-12-20] MEDS: INSULIN DETEMIR 100 UNITS/ML VIAL SQ SCH ×2 (09:04→22:07)
[2016-12-20 12:29] LABS: AUTOMATED NEUTROPHIL # 12.9 TH/MM3 (1.8-7.7); BASOPHIL # 0.1 TH/MM3 (0-0.2); BASOPHIL % 0.4 % (0.0-2.0); EOSINOPHIL % 0.1 % (0.0-4.0); HEMO FLAGS DIFF FINAL; LYMPH % 10.9 % (9.0-44.0); LYMPHOCYTE # 1.7 TH/MM3 (1.0-4.8); MEAN CELL VOLUME 91.6 FL (80.0-100.0); MEAN CORPUSCULAR HEMOGLOBIN 30.2 PG (27.0-34.0); MEAN CORPUSCULAR HGB CONC 32.9 % (32.0-36.0); MONO % 6.8 % (0.0-8.0); NEUT % 81.8 % (16.0-70.0); PLATELET COUNT 188 TH/MM3 (150-450); RED BLOOD COUNT 4.25 MIL/MM3 (4.50-5.90); RED CELL DISTRIBUTION WIDTH 13.6 % (11.6-17.2); WHITE BLOOD COUNT 15.8 TH/MM3 (4.0-11.0)
[2016-12-20 14:10] LABS: BICARBONATE 29.9 MEQ/L (21.0-32.0); MAGNESIUM 2.1 MG/DL (1.5-2.5)
--- NOTE | 2016-12-20 16:19 | EKG ---
Date Performed: 12/19/2016 Time Performed: 19:57:12 PTAGE: 66 years EKG: ELECTRONIC VENTRICULAR PACEMAKER ABNORMAL RHYTHM ECG NO PREVIOUS TRACING DOCTOR: Aristides Ramon Interpretating Date/Time 12/20/2016 16:17:24
[2016-12-20 20:58] LABS: BICARBONATE 29.2 MEQ/L (21.0-32.0); MAGNESIUM 2.2 MG/DL (1.5-2.5); POTASSIUM 4.1 MEQ/L (3.5-5.1)
[2016-12-20 20:59] LABS: BETA-HYDROXYBUTYRATE 0.91 MMOL/L (0.00-0.39)
[2016-12-20] MEDS: ATORVASTATIN 20 MG TAB PO SCH (22:05)
[2016-12-21] VITALS (9 sets, daily range): BP systolic 138–150; BP diastolic 57–70; PULSE 58–70; RESP 16–20; TEMP 97.6–99.2; O2SAT 96–100
[2016-12-21] MEDS: INSULIN DETEMIR 100 UNITS/ML VIAL SQ SCH ×2 (09:00→20:28)
[2016-12-21] MEDS: DOCUSATE SODIUM 50 MG/SENNA 8.6 MG TAB PO SCH ×2 (09:00→20:08)
[2016-12-21] MEDS: HEPARIN SODIUM - SQ 10,000 UNITS/ML VIAL SQ SCH ×2 (09:01→22:27)
[2016-12-21] MEDS: FAMOTIDINE 20 MG TAB PO SCH ×2 (09:02→20:23)
[2016-12-21] MEDS: CARVEDILOL 3.125 MG TAB PO SCH ×2 (09:03→20:23)
[2016-12-21] MEDS: SODIUM CHLOR 0.9% 1000 ML INJ 1,000 ML IV SCH (09:05)
[2016-12-21 09:06] LABS: AUTOMATED NEUTROPHIL # 6.9 TH/MM3 (1.8-7.7); BASOPHIL # 0.1 TH/MM3 (0-0.2); BASOPHIL % 0.7 % (0.0-2.0); EOSINOPHIL # 0.1 TH/MM3 (0-0.4); EOSINOPHIL % 0.6 % (0.0-4.0); HEMATOCRIT 38.4 % (39.0-51.0); HEMO FLAGS DIFF FINAL; LYMPH % 19.4 % (9.0-44.0); LYMPHOCYTE # 1.9 TH/MM3 (1.0-4.8); MEAN CELL VOLUME 91.9 FL (80.0-100.0); MEAN CORPUSCULAR HGB CONC 33.7 % (32.0-36.0); MONO % 7.1 % (0.0-8.0); NEUT % 72.2 % (16.0-70.0); PLATELET COUNT 172 TH/MM3 (150-450); RED BLOOD COUNT 4.18 MIL/MM3 (4.50-5.90); RED CELL DISTRIBUTION WIDTH 13.6 % (11.6-17.2); WHITE BLOOD COUNT 9.6 TH/MM3 (4.0-11.0)
[2016-12-21 09:38] LABS: ALKALINE PHOSPHATASE 102 U/L (45-117); ALT (GPT) 23 U/L (12-78); ANION GAP 7 MEQ/L (5-15); AST (GOT) 20 U/L (15-37); BLOOD UREA NITROGEN 20 MG/DL (7-18); CHLORIDE 104 MEQ/L (98-107); GLOMERULAR FILTRATION RATE 85 ML/MIN (>89); MAGNESIUM 2.2 MG/DL (1.5-2.5); SODIUM (NA) 140 MEQ/L (136-145); TOTAL BILIRUBIN ADULT 0.5 MG/DL (0.2-1.0)
[2016-12-21] MEDS: INSULIN NovoLIN REGULAR SUPPLEMENTAL SCALE SQ SCH ×3 (12:03→20:28)
[2016-12-21 12:31] LABS: BICARBONATE 28.8 MEQ/L (21.0-32.0); MAGNESIUM 2.1 MG/DL (1.5-2.5); POTASSIUM 4.3 MEQ/L (3.5-5.1)
[2016-12-21 12:56] LABS: HEMOGLOBIN A1a 2.2 %; HEMOGLOBIN A1b 1.2 %; HEMOGLOBIN Ao 72.6 %; HEMOGLOBIN F 2.1 %; HEMOGLOBIN LA1C 4.7 %; HEMOGLOBIN P3 6.5 %
--- NOTE | 2016-12-21 13:40 | HHI.PR ---
Subjective Remarks Follow-up DKA 12/21/16-patient seen and examined, refused this morning is a.m. Guilleemir, denies any chest or shortness of breath. States he is not that hungry Objective Vitals Vital Signs Date Time Temp Pulse Resp B/P Pulse Ox O2 Delivery O2 Flow Rate FiO2 12/21/16 08:30 97.7 62 20 147/67 99 12/21/16 06:00 64 12/21/16 04:00 58 12/21/16 04:00 98.2 63 18 138/57 97 12/21/16 02:00 58 12/21/16 00:00 99.2 63 16 138/63 98 12/21/16 00:00 58 12/20/16 22:00 56 12/20/16 20:03 98 21 12/20/16 20:00 99.4 61 18 135/65 97 12/20/16 20:00 60 12/20/16 18:00 62 12/20/16 16:00 65 12/20/16 16:00 99.1 65 14 131/60 97 12/20/16 14:00 64 I/O 12/20/16 12/20/16 12/20/16 12/21/16 12/21/16 12/21/16 07:00 15:00 23:00 07:00 15:00 23:00 Intake Total 2314 ml 1401 ml 1110 ml 660 ml Output Total 350 ml 570 ml 350 ml 550 ml Balance 1964 ml 831 ml 760 ml 110 ml Intake Oral 200 ml 480 ml 150 ml 100 ml IV Total 2114 ml 921 ml 960 ml 560 ml Output Urine Total 350 ml 570 ml 350 ml 550 ml # Bowel Movements 0 Result Diagram: 12/21/16 0743 12/21/16 1146 Imaging Last Impressions Chest X-Ray 12/19/16 1944 Signed Impressions: Service Date/Time: Monday, December 19, 2016 20:05 - CONCLUSION: Stable mild cardiomegaly without acute cardiopulmonary disease. Kulwant Mancera Jr., MD Objective Remarks GENERAL: NAD SKIN: Warm and dry. HEAD: Normocephalic. EYES: No scleral icterus. No injection or drainage. NECK: Supple, trachea midline. No JVD or lymphadenopathy. CARDIOVASCULAR: Regular rate and rhythm without murmurs, gallops, or rubs. RESPIRATORY: Breath sounds equal bilaterally. No accessory muscle use. GASTROINTESTINAL: Abdomen soft, non-tender, nondistended. MUSCULOSKELETAL: No cyanosis, or edema. BACK: Nontender without obvious deformity. No CVA tenderness. A/P Problem List: (1) DKA (diabetic ketoacidoses) ICD Code: E13.10 Status: Acute (2) DM (diabetes mellitus) ICD Code: E11.9 Status: Acute (3) HTN (hypertension) ICD Code: I10 Status: Acute Assessment and Plan 66-year-old man with 1)DKA Resolved status post insulin drip, serial electrolyte monitoring and IV fluid hydration. AG resolved 2)Diabetes type 2 Blood glucose labile me Currently on Levemir 5 units subcutaneous every 12H which I will increase to 10 units and continue sliding scale insulin. Patient states he takes 17 units subcutaneous every 12 hours Levemir at home along with short acting 4 units 3x/day 3) hypertension Currently on Coreg 4)EDGARDO on CKD- resolved with IV fluid hydration, HLIV 5)Dehydration- resolved 6)Leukocytosis-resolved GI prophylaxis -on Pepcid DVT prophylaxis- on Heparin SQ Problem Qualifiers (1) DKA (diabetic ketoacidoses): Qualified Code: E13.10 - Diabetic ketoacidosis without coma associated with type 2 diabetes mellitus Servando Hwang MD December 21, 2016 13:40
[2016-12-21] MEDS: ATORVASTATIN 20 MG TAB PO SCH (20:24)
[2016-12-21 20:31] LABS: BICARBONATE 26.5 MEQ/L (21.0-32.0); MAGNESIUM 2.2 MG/DL (1.5-2.5); POTASSIUM 4.1 MEQ/L (3.5-5.1)
[2016-12-22] VITALS: BP 132/72; PULSE 78; RESP 19; TEMP 98.8; O2SAT 96
[2016-12-22] MEDS: CHLORHEXIDINE GLUCONATE 2 % 1 PACK (2 CLOTHS) TOP SCH (00:01)
[2016-12-22] MEDS: INSULIN NovoLIN REGULAR SUPPLEMENTAL SCALE SQ SCH ×4 (00:10→11:45)
[2016-12-22 04:00] VITALS: BP 129/67; PULSE 68; RESP 18; TEMP 97.9; O2SAT 96
[2016-12-22 07:49] VITALS: O2SAT 97
[2016-12-22 08:00] VITALS: BP 140/71; PULSE 65; RESP 18; TEMP 98.4; O2SAT 98
[2016-12-22 08:37] LABS: BICARBONATE 27.7 MEQ/L (21.0-32.0); POTASSIUM 3.8 MEQ/L (3.5-5.1)
[2016-12-22] MEDS: DOCUSATE SODIUM 50 MG/SENNA 8.6 MG TAB PO SCH (09:00)
[2016-12-22] MEDS: CARVEDILOL 3.125 MG TAB PO SCH (09:29)
[2016-12-22] MEDS: FAMOTIDINE 20 MG TAB PO SCH (09:29)
[2016-12-22] MEDS: HEPARIN SODIUM - SQ 10,000 UNITS/ML VIAL SQ SCH (09:30)
[2016-12-22] MEDS: INSULIN DETEMIR 100 UNITS/ML VIAL SQ SCH (09:35)
[2016-12-22 12:00] VITALS: BP 128/73; PULSE 69; RESP 18; TEMP 98.6; O2SAT 95
--- NOTE | 2016-12-22 13:18 | HHI.PR ---
Subjective Remarks Follow-up DKA 12/21/16-patient seen and examined, refused this morning is a.m. Guilleemir, denies any chest or shortness of breath. States he is not that hungry 12/22/16-patient seen and examined, denies any abdominal pain, nausea of vomiting with by mouth intake. Stable and ready for discharge Objective Vitals Vital Signs Date Time Temp Pulse Resp B/P Pulse Ox O2 Delivery O2 Flow Rate FiO2 12/22/16 08:00 98.4 65 18 140/71 98 12/22/16 07:49 97 21 12/22/16 04:00 97.9 68 18 129/67 96 12/22/16 00:00 98.8 78 19 132/72 96 12/21/16 20:29 100 12/21/16 20:00 99.0 61 18 148/70 97 12/21/16 15:32 98.5 62 20 150/68 100 I/O 12/21/16 12/21/16 12/21/16 12/22/16 12/22/16 12/22/16 07:00 15:00 23:00 07:00 15:00 23:00 Intake Total 660 ml 807 ml 480 ml 240 ml Output Total 550 ml Balance 110 ml 807 ml 480 ml 240 ml Intake Oral 100 ml 260 ml 480 ml 240 ml IV Total 560 ml 547 ml Output Urine Total 550 ml # Voids 3 2 2 # Bowel Movements 1 Result Diagram: 12/21/16 0743 12/22/16 0742 Imaging Last Impressions Chest X-Ray 12/19/161943 Signed Impressions: Service Date/Time: Monday, December 19, 2016 20:05 - CONCLUSION: Stable mild cardiomegaly without acute cardiopulmonary disease. Kulwant Mancera Jr., MD Objective Remarks GENERAL: NAD SKIN: Warm and dry. HEAD: Normocephalic. EYES: No scleral icterus. No injection or drainage. NECK: Supple, trachea midline. No JVD or lymphadenopathy. CARDIOVASCULAR: Regular rate and rhythm without murmurs, gallops, or rubs. RESPIRATORY: Breath sounds equal bilaterally. No accessory muscle use. GASTROINTESTINAL: Abdomen soft, non-tender, nondistended. MUSCULOSKELETAL: No cyanosis, or edema. BACK: Nontender without obvious deformity. No CVA tenderness. Procedures None A/P Problem List: (1) DKA (diabetic ketoacidoses) ICD Code: E13.10 Status: Resolved (2) DM (diabetes mellitus) ICD Code: E11.9 Status: Chronic (3) HTN (hypertension) ICD Code: I10 Status: Chronic Assessment and Plan 66-year-old man with 1)DKA Resolved status post insulin drip, serial electrolyte monitoring and IV fluid hydration. AG resolved 2)Diabetes type 2 Blood glucose labile me Currently on Levemir 10 units subcutaneous every 12Hand continue sliding scale insulin. 3) hypertension Currently on Coreg 4)EDGARDO on CKD- resolved with IV fluid hydration, HLIV 5)Dehydration- resolved 6)Leukocytosis-resolved GI prophylaxis -on Pepcid DVT prophylaxis- on Heparin SQ Problem Qualifiers (1) DKA (diabetic ketoacidoses): Qualified Code: E13.10 - Diabetic ketoacidosis without coma associated with type 2 diabetes mellitus Servando Hwang MD December 22, 2016 13:18
--- NOTE | 2016-12-22 13:22 | HHI.DS ---
Discharge Summary Admission Date December 19, 2016 at 21:10 Discharge Date: December 22, 2016 Admitting Diagnosis DKA, diabetic non compliant (1) DKA (diabetic ketoacidoses) ICD Code: E13.10 (2) DM (diabetes mellitus) ICD Code: E11.9 (3) HTN (hypertension) ICD Code: I10 Procedures None Brief History - From Admission 66 y/o man who is inconsistent with his insulin compliance presents in DKA. Dehydrated. No chest pain. + SOB. CBC/BMP: 12/21/16 0743 12/22/16 0742 Significant Findings Laboratory Tests Test 12/19/16 12/19/16 12/19/16 12/20/16 19:45 19:58 21:27 00:34 Blood Gas HCO3 14 mmol/L (22-26) Blood Gas Base Excess -9.4 mmol/L (-2-2) Arterial Blood pH 7.47 (7.380-7.420) Arterial Blood Partial 19 mmHg (38-42) Pressure CO2 Arterial Blood Oxygen Content 20.1 Vol % (12.0-20.0) White Blood Count 13.4 TH/MM3 (4.0-11.0) Neutrophils (%) (Auto) 82.0 % (16.0-70.0) Neutrophils # (Auto) 10.9 TH/MM3 (1.8-7.7) Monocytes # (Auto) 1.1 TH/MM3 (0-0.9) Sodium Level 127 MEQ/L (136-145) Chloride Level 83 MEQ/L (98-107) Carbon Dioxide Level 18.2 MEQ/L (21.0-32.0) Anion Gap 26 MEQ/L (5-15) Blood Urea Nitrogen 53 MG/DL (7-18) 49 MG/DL (7-18) Creatinine 2.65 MG/DL 1.98 MG/DL (0.60-1.30) (0.60-1.30) Estimat Glomerular Filtration 24 ML/MIN (>89) 34 ML/MIN (>89) Rate Random Glucose 635 MG/DL 271 MG/DL (74-106) (74-106) Alkaline Phosphatase 149 U/L (45-117) Troponin I 0.08 NG/ML (0.02-0.05) B-Hydroxybutyrate 10.81 MMOL/L (0.00-0.39) Hemoglobin A1c 10.6 % (4.3-6.0) Urine Glucose (UA) 1000 mg/dL (NEG) Urine Ketones 40 mg/dL (NEG) Urine Cannabinoids Screen POS (NEG) Calcium Level 7.9 MG/DL (8.5-10.1) Test 12/20/16 12/20/16 12/20/16 12/21/16 05:41 12:06 19:58 07:43 Blood Urea Nitrogen 46 MG/DL (7-18) 34 MG/DL (7-18) 26 MG/DL (7-18) 20 MG/DL (7- 18) Creatinine 1.63 MG/DL (0.60-1.30) Estimat Glomerular Filtration 42 ML/MIN (>89) 57 ML/MIN (>89) 70 ML/MIN (>89) 85 ML/MIN (>89) Rate Random Glucose 181 MG/DL 197 MG/DL 201 MG/DL 134 MG/DL (74-106) (74-106) (74-106) (74-106) Calcium Level 7.9 MG/DL 7.8 MG/DL 8.1 MG/DL 8.2 MG/DL (8.5-10.1) (8.5-10.1) (8.5-10.1) (8.5-10.1) B-Hydroxybutyrate 2.02 MMOL/L 0.96 MMOL/L 0.91 MMOL/L (0.00-0.39) (0.00-0.39) (0.00-0.39) White Blood Count 15.8 TH/MM3 (4.0-11.0) Red Blood Count 4.25 MIL/MM3 4.18 MIL/MM3 (4.50-5.90) (4.50-5.90) Hemoglobin 12.8 GM/DL 12.9 GM/DL (13.0-17.0) (13.0-17.0) Neutrophils (%) (Auto) 81.8 % 72.2 % (16.0-70.0) (16.0-70.0) Neutrophils # (Auto) 12.9 TH/MM3 (1.8-7.7) Monocytes # (Auto) 1.1 TH/MM3 (0-0.9) Phosphorus Level 2.2 MG/DL 1.4 MG/DL 1.9 MG/DL (2.5-4.9) (2.5-4.9) (2.5-4.9) Hematocrit 38.4 % (39.0-51.0) Total Protein 5.3 GM/DL (6.4-8.2) Albumin 2.7 GM/DL (3.4-5.0) Test 12/21/16 12/21/16 12/22/16 11:46 19:44 07:42 Blood Urea Nitrogen 20 MG/DL (7-18) Random Glucose 255 MG/DL 282 MG/DL 127 MG/DL (74-106) (74-106) (74-106) Calcium Level 8.1 MG/DL 8.3 MG/DL (8.5-10.1) (8.5-10.1) Phosphorus Level 1.8 MG/DL 1.6 MG/DL (2.5-4.9) (2.5-4.9) Sodium Level 135 MEQ/L (136-145) Estimat Glomerular Filtration 86 ML/MIN (>89) Rate PE at Discharge GENERAL: NAD SKIN: Warm and dry. HEAD: Normocephalic. EYES: No scleral icterus. No injection or drainage. NECK: Supple, trachea midline. No JVD or lymphadenopathy. CARDIOVASCULAR: Regular rate and rhythm without murmurs, gallops, or rubs. RESPIRATORY: Breath sounds equal bilaterally. No accessory muscle use. GASTROINTESTINAL: Abdomen soft, non-tender, nondistended. MUSCULOSKELETAL: No cyanosis, or edema. BACK: Nontender without obvious deformity. No CVA tenderness. Hospital Course admitted secondary to DKA and was placed on insulin drip with serial electrolyte monitoring, IV fluid hydration.. DKA subsequently resolved and patient straight to sliding-scale insulin. He was eventually started back on long-acting basal insulin which was adjusted accordingly. Renal function improved with IV fluid hydration. Home medications for treatment of hypertension were all restarted. DVT and GI prophylaxis were provided. Prior to discharge, patient's condition improved with vitals remaining stable. Pt Condition on Discharge: Stable Discharge Disposition: Discharge Home Discharge Time: <= 30 minutes Discharge Instructions DIET: Follow Instructions for: Diabetic Diet Activities you can perform: Regular-No Restrictions Follow up Referrals: PCP Follow-up - 1 Week Continued Medications: Atorvastatin (Atorvastatin) 20 Mg Tab 20 MG PO HS Cholesterol Management #30 Ref 0 TAB Carvedilol (Carvedilol) 3.125 Mg Tab 3.125 MG PO BID #60 Ref 0 TAB Fluoxetine (Fluoxetine) 40 Mg Cap 40 CAP PO DAILY #30 Ref 0 CAP Insulin Detemir Inj (Levemir Inj) 1,000 unit/ 10 ML Vial 18 UNITS SQ BID Blood Sugar Management #100 INJECTION Insulin Human Regular Inj (Novolin R Inj) 1,000 Unit/10 Ml Vial 1-9 UNITS SQ ACHS SLIDING SCALE Max dose at bedtime:( )units; sugars less than 70,(0) units; sugars 150-199,(1)unit; sugars 200-249,(3)units; sugars 250-299,(5 ) units; sugars 300-349,(7)units; sugars greater than 349,(9)units Blood Sugar Management #10 Ref 0 ML Lisinopril (Lisinopril) 10 Mg Tab 10 MG PO DAILY #30 Ref 0 TAB Servando Hwang MD December 22, 2016 13:22
[2016-12-22 13:40] VITALS: BP 116/67; PULSE 81; RESP 20; TEMP 97.9; O2SAT 96
== END 2016-12-22 15:04 | disposition home or self-care (01) | DRG 638 ==
LOC: NEPE 18:58 → NEDA 21:10 → HIME 22:20 → HOCB 12-21 08:13
PROVIDERS: ADMIT Hospitalist; ATTEND Hospitalist
DX: E13.10 Other specified diabetes mellitus with ketoacidosis without coma (principal); N17.9 Acute kidney failure, unspecified; I42.9 Cardiomyopathy, unspecified; I13.0 Hypertensive heart and chronic kidney disease with heart failure and stage 1 through stage 4 chronic kidney disease, or unspecified chronic kidney disease; I50.9 Heart failure, unspecified; F17.210 Nicotine dependence, cigarettes, uncomplicated; E11.22 Type 2 diabetes mellitus with diabetic chronic kidney disease; E86.0 Dehydration; Z79.4 Long term (current) use of insulin; Z91.14 Patient's other noncompliance with medication regimen; N18.9 Chronic kidney disease, unspecified; E78.5 Hyperlipidemia, unspecified
CPT/HCPCS: 36600; 71010; 80048; 80053; 80307; 81001; 82010; 82805; 82948; 83036; 83735; 84100; 84484; 85025; 87641; 93005; 96361; 96372; 96374; 96375; J1644; J1815; J1817; J2405; J3480; J7030; J7042

== ENCOUNTER 2017-05-21 10:48 | Emergency (ER) | payer MEDICARE, OTHER ==
[~2017-05-21] VITALS: Ht 182.9 cm; Wt 65.0 kg
[~2017-05-21 10:48] MED LIST changes: -DOXY100C PO; -GABA300C5 PO; -PANT40TA3 PO
[2017-05-21 10:49] VITALS: BP 107/56; PULSE 91; RESP 16; TEMP 98.7; O2SAT 98
[2017-05-21] MEDS ORDERED: ARIC23TA PO ×2 (11:12)
[2017-05-21] MEDS ORDERED: PROT40TA PO ×2 (11:12)
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
== END 2017-05-21 12:32 | disposition home or self-care (01) ==
LOC: NEPD 10:48
DX: L89.619 Pressure ulcer of right heel, unspecified stage (principal); E10.9 Type 1 diabetes mellitus without complications; Z79.4 Long term (current) use of insulin
CPT/HCPCS: 29515

== ENCOUNTER 2017-05-25 13:37 | Inpatient (IN) | payer OTHER, MEDICARE ==
[~2017-05-25] VITALS: Ht 182.9 cm; Wt 81.9 kg
[~2017-05-25 13:37] MED LIST changes: +ARIC23TA PO; -ATOR20TA15 PO; +PROT40TA PO
--- NOTE | 2017-05-25 13:45 | PD ---
Physical Exam Date Seen by Provider: May 25, 2017 Time Seen by Provider: 13:42 Narrative 66-year-old white male presents to emergency Department with complaints of upper abdominal pain. This started last evening. Patient has had associated nausea, vomiting or diaphoresis. Patient is an insulin dependent diabetic. Last blood sugars were 190s. History of C. difficile Vital signs reviewed. Pt. waiting for bed placement. [facility] Medical Record Reviewed: No Supervised Visit with KIMMIE: Conner Posey May 25, 2017 13:45
[2017-05-25] MEDS ORDERED: SODIUM CHLOR 0.9% 1000 ML INJ 1,000 ML IV ONE ×3 (14:01→17:00)
[2017-05-25] MEDS ORDERED: SODIUM CHLORIDE 0.9% FLUSH 10 ML FLUSH IVF PRN (14:15)
[2017-05-25 14:33] LABS: BLOOD GAS VENOUS BASE EXCESS 4.1 mmol/L (-2-2); BLOOD GAS VENOUS HCO3 29 mmol/L (22-26); BLOOD GAS VENOUS O2 CONTENT 3.7 Vol % (9.0-17.0); BLOOD GAS VENOUS O2 HGB SAT 18 % (70-76); BLOOD GAS VENOUS PCO2 55 mmHg (44-48); BLOOD GAS VENOUS PO2 18 mmHg (35-40); BLOOD GAS VENOUS pH 7.35 (7.360-7.400); CRITICAL VALUE YES; DRAW SITE INTRA-VENOUS; FIO2 21 %; STAT YES; TEMP CORR TO 98.6
[2017-05-25] MEDS ORDERED: ONDANSETRON HCL 4 MG/2 ML VIAL IV PUSH ONE (14:45)
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
[2017-05-25 14:55] LABS: AUTOMATED NEUTROPHIL # 16.6 TH/MM3 (1.8-7.7); BASOPHIL % 0.2 % (0.0-2.0); EOSINOPHIL % 0.1 % (0.0-4.0); HEMATOCRIT 44.3 % (39.0-51.0); HEMO FLAGS DIFF FINAL; LYMPH % 10.4 % (9.0-44.0); LYMPHOCYTE # 2.1 TH/MM3 (1.0-4.8); MEAN CELL VOLUME 90.2 FL (80.0-100.0); MEAN CORPUSCULAR HEMOGLOBIN 28.8 PG (27.0-34.0); MEAN CORPUSCULAR HGB CONC 31.9 % (32.0-36.0); NEUT % 82.3 % (16.0-70.0); PLATELET COUNT 478 TH/MM3 (150-450); RED BLOOD COUNT 4.91 MIL/MM3 (4.50-5.90); RED CELL DISTRIBUTION WIDTH 16.5 % (11.6-17.2); WHITE BLOOD COUNT 20.1 TH/MM3 (4.0-11.0)
--- NOTE | 2017-05-25 15:11 | RADRPT ---
EXAM DATE/TIME: 05/25/2017 14:59 [facility] COMPARISON: CHEST SINGLE AP, December 19, 2016, 20:05. INDICATIONS : Patient states shortness of breath. MEDICAL HISTORY : Chronic obstructive pulmonary disease. SURGICAL HISTORY : Pacemaker. ENCOUNTER: Initial ACUITY: 1 day PAIN SCORE: 0/10 LOCATION: Bilateral chest FINDINGS: Pacer on the left mild hyperinflation. Granuloma on the right. Negative for pneumothorax or infiltr ate. The portion of the bony skeleton visualized is unremarkable. CONCLUSION: Moderate hyperinflation with pacer otherwise negative. Delfin Mittal MD FACR on May 25, 2017 at 15:09 Board Certified Radiologist. This report was verified electronically.
[2017-05-25 15:15] LABS: ALKALINE PHOSPHATASE 117 U/L (45-117); BETA-HYDROXYBUTYRATE 0.29 MMOL/L (0.00-0.39); TOTAL BILIRUBIN ADULT 0.5 MG/DL (0.2-1.0)
[2017-05-25] MEDS ORDERED: VANCOMYCIN INJ 1,000 MG in SODIUM CHLOR 0.9% 250 ML INJ 250 ML IV ONE (15:15)
[2017-05-25] MEDS ORDERED: PIPERACIL-TAZO 4.5 GM PREMIX 100 ML IV ONE (15:15)
--- NOTE | 2017-05-25 15:22 | RADRPT ---
EXAM DATE/TIME: 05/25/2017 15:01 [facility] COMPARISON: No previous studies available for comparison. INDICATIONS : Right foot pain. MEDICAL HISTORY : None. SURGICAL HISTORY : None. ENCOUNTER: Initial ACUITY: 2 weeks PAIN SCORE: 4/10 LOCATION: Right Foot FINDINGS: Spiral fracture distal fifth metatarsal in reasonable alignment. No other fractures are appreciated. Minimal plantar spurring is evident. CONCLUSION: Spiral fracture fifth metatarsal. Delfin Mittal MD FACR on May 25, 2017 at 15:20 Board Certified Radiologist. This report was verified electronically.
[2017-05-25 15:24] LABS: ALT (GPT) 19 U/L (12-78); ANION GAP 9 MEQ/L (5-15); AST (GOT) 23 U/L (15-37); BICARBONATE 28.8 MEQ/L (21.0-32.0); BLOOD UREA NITROGEN 39 MG/DL (7-18); CHLORIDE 94 MEQ/L (98-107); GLOMERULAR FILTRATION RATE 44 ML/MIN (>89); MAGNESIUM 2.6 MG/DL (1.5-2.5); POTASSIUM 4.9 MEQ/L (3.5-5.1); SODIUM (NA) 132 MEQ/L (136-145)
[2017-05-25] MEDS ORDERED: IOHEXOL 350 MG/ML 10 ML VIAL (for RAD DIAG) IVCONTRAST ONE (16:36)
--- NOTE | 2017-05-25 16:55 | RADRPT ---
EXAM DATE/TIME: 05/25/2017 16:29 [facility] COMPARISON: No previous studies available for comparison. INDICATIONS : Abdomen pain. IV CONTRAST: 100 cc Omnipaque 350 (iohexol) IV ORAL CONTRAST: No oral contrast ingested. RADIATION DOSE: 7.01 CTDIvol (mGy) MEDICAL HISTORY : Cardiovascular disease. SURGICAL HISTORY : Pacemaker. ENCOUNTER: Initial ACUITY: 1 day PAIN SCALE: 8/10 LOCATION: Bilateral abdomen TECHNIQUE: Volumetric scanning of the abdomen and pelvis was performed. Using automated exposure control and ad justment of the mA and/or kV according to patient size, radiation dose was kept as low as reasonably achievable to obtain optimal diagnostic quality images. DICOM format image data is available electro nically for review and comparison. FINDINGS: Examination of the lung bases demonstrates no abnormality. No pleural fluid is identified. No pulmona ry nodules are present. The liver and spleen are free of focal defects. The gallbladder and pancreas demonstrate no abnormality. The adrenal glands are normal. The kidneys demonstrate no evidence of lynda id renal mass or hydronephrosis. No free fluid or abdominal masses are identified. No para-aortic pamella nopathy is seen. Small left renal cysts and hepatic cysts are present. There is marked dilatation of the stomach small bowel as well as the colon to the level of potential mass at the level of the splen ic flexure where there is a sharp transition zone. No pelvic masses are identified CONCLUSION: 1. Severe small bowel and colonic distention to the level of the splenic flexure where there is a sha rp transition zone. Obstructing neoplasm is not excluded. Willi Muñoz MD on May 25, 2017 at 16:50 Board Certified Radiologist. This report was verified electronically.
[2017-05-25 17:45] VITALS: BP 101/58; PULSE 99; RESP 16; TEMP 97.6; O2SAT 99
[2017-05-25] MEDS ORDERED: SENNOSIDES 8.6 MG TAB PO PRN (17:45)
[2017-05-25] MEDS ORDERED: LACTULOSE SYRUP 20 GM/30 ML CUP PO PRN (17:45)
[2017-05-25] MEDS ORDERED: SODIUM CHLORIDE 0.9% FLUSH 10 ML FLUSH IV FLUSH PRN (17:45)
[2017-05-25] MEDS ORDERED: BISACODYL 10 MG SUPP RECTAL PRN (17:45)
[2017-05-25] MEDS ORDERED: MAGNESIUM HYDROXIDE SUSP 30 ML CUP PO PRN (17:45)
[2017-05-25] MEDS ORDERED: NALOXONE HCL 0.4 MG/ML AMP IV PUSH PRN (17:45)
[2017-05-25] MEDS: SODIUM CHLOR 0.9% 1000 ML INJ 1,000 ML IV SCH (18:27)
[2017-05-25] MEDS: HEPARIN SODIUM - SQ 10,000 UNITS/ML VIAL SQ SCH (18:28)
--- NOTE | 2017-05-25 18:43 | PD ---
Physical Exam Date Seen by Provider: May 25, 2017 Time Seen by Provider: 18:40 Narrative 66-year-old male came to the emergency room with history of abdominal pain and vomiting since last night. Patient says he vomited 3-4 times and at all times it was large quantity and looks like feces. Patient has never had any intra- abdominal surgeries in the past. He's been seen by my PA and I'm supervising him. Blood test show significant leukocytosis. His lactic acid is significantly elevated. Patient had a CAT scan done which shows significant small bowel loop dilation as well as ascending colon with a cut off at the splenic flexure. As per the radiologist there is a possibility of intercurrent colonic neoplasm. I've asked for a nasogastric tube. Patient will be admitted. He has been given antibiotic and fluid bolus as per sepsis protocol. Data Data Last Documented VS Vital Signs Date Time Temp Pulse Resp B/P (MAP) Pulse Ox O2 Delivery O2 Flow Rate FiO2 05/25/17 14:09 16 Orders Orders Electrocardiogram (05/25/17 14:01) Complete Blood Count With Diff (05/25/17 14:01) Comprehensive Metabolic Panel (05/25/17 14:01) Magnesium (Mg) (05/25/17 14:01) Phosphorus (Po4) (05/25/17 14:01) Beta Hydroxybutyrate (Acetone) (05/25/17 14:01) Osmolality,Serum (05/25/17 14:01) Lactic Acid (05/25/17 14:01) Blood Culture (05/25/17 14:01) Chest, Single Ap (05/25/17 14:01) Blood Gas Venous (Vbg) (05/25/17 14:01) Blood Glucose (05/25/17 14:01) Blood Glucose (05/25/17 15:01) Ecg Monitoring (05/25/17 14:01) Iv Access Insert/Monitor (05/25/17 14:01) Oximetry (05/25/17 14:01) NPO (05/25/17 14:01) Sodium Chlor 0.9% 1000 Ml Inj (Ns 1000 M (05/25/17 14:01) Sodium Chlor 0.9% 1000 Ml Inj (Ns 1000 M (05/25/17 14:31) Sodium Chloride 0.9% Flush (Ns Flush) (05/25/17 14:15) Troponin I (05/25/17 14:01) Lipase (05/25/17 14:01) Foot, Complete ([id number]) (05/25/17 14:01) Ct Abd/Pel W Iv Contrast(Rout) (05/25/17 14:28) Ondansetron Inj (Zofran Inj) (05/25/17 14:45) Piperacil-Tazo 4.5 Gm Premix (Zosyn 4.5 (05/25/17 15:15) Vancomycin Inj (Vancomycin Inj) (05/25/17 15:15) Stool Afb Culture And Stain (05/25/17 16:15) Iohexol 350 Inj (Omnipaque 350 Inj) (05/25/17 16:36) Sodium Chlor 0.9% 1000 Ml Inj (Ns 1000 M (05/25/17 17:00) Ng Gastric Tube Insert/Monitor (05/25/17 16:57) [place]-Gastric Tube Insert/Mon (05/25/17 17:29) Admit To Inpatient (05/25/17 ) Vital Signs (Adult) Q4H (05/25/17 17:34) Activity Oob With Assistance (05/25/17 17:34) Diet Npo (05/25/17 Dinner) Sodium Chlor 0.9% 1000 Ml Inj (Ns 1000 M (05/25/17 17:34) Sodium Chloride 0.9% Flush (Ns Flush) (05/25/17 17:45) Sodium Chloride 0.9% Flush (Ns Flush) (05/25/17 21:00) Ondansetron Inj (Zofran Inj) (05/25/17 17:45) Comprehensive Metabolic Panel (05/26/17 06:00) Complete Blood Count With Diff (05/26/17 06:00) Resp Oxygen Jorge C Titrat 1-4 L (05/25/17 ) Heparin Inj (Heparin Inj) (05/25/17 18:00) Naloxone Inj (Narcan Inj) (05/25/17 17:45) Magnesium Hydroxide Liq (Milk Of Magnesi (05/25/17 17:45) Sennosides (Senokot) (05/25/17 17:45) Bisacodyl Supp (Dulcolax Supp) (05/25/17 17:45) Lactulose Liq (Lactulose Liq) (05/25/17 17:45) Inpatient Certification (05/25/17 ) Consult General Surgery (05/25/17 ) Admit Order (Ed Use Only) (05/25/17 17:34) Consult Gastroenterology (05/25/17 ) Consult Podiatry (05/25/17 ) Labs Laboratory Tests Test 05/25/17 14:26 05/25/17 14:30 Blood Gas Puncture Site INTRA-VENOUS Blood Gas Patient Temperature 98.6 Venous Blood pH 7.35 Venous Blood Partial Pressure CO2 55 mmHg Venous Blood Partial Pressure O2 18 mmHg Venous Blood HCO3 29 mmol/L Venous Blood Oxygen Saturation 18 % Venous Blood Oxygen Content 3.7 Vol % Venous Blood Base Excess 4.1 mmol/L Blood Gas Inspired Oxygen 21 % White Blood Count 20.1 TH/MM3 Red Blood Count 4.91 MIL/MM3 Hemoglobin 14.1 GM/DL Hematocrit 44.3 % Mean Corpuscular Volume 90.2 FL Mean Corpuscular Hemoglobin 28.8 PG Mean Corpuscular Hemoglobin Concent 31.9 % Red Cell Distribution Width 16.5 % Platelet Count 478 TH/MM3 Mean Platelet Volume 7.8 FL Neutrophils (%) (Auto) 82.3 % Lymphocytes (%) (Auto) 10.4 % Monocytes (%) (Auto) 7.0 % Eosinophils (%) (Auto) 0.1 % Basophils (%) (Auto) 0.2 % Neutrophils # (Auto) 16.6 TH/MM3 Lymphocytes # (Auto) 2.1 TH/MM3 Monocytes # (Auto) 1.4 TH/MM3 Eosinophils # (Auto) 0.0 TH/MM3 Basophils # (Auto) 0.0 TH/MM3 CBC Comment DIFF FINAL Differential Comment Blood Urea Nitrogen 39 MG/DL Creatinine 1.57 MG/DL Random Glucose 236 MG/DL Total Protein 7.4 GM/DL Albumin 2.8 GM/DL Calcium Level 9.2 MG/DL Phosphorus Level 5.7 MG/DL Magnesium Level 2.6 MG/DL Alkaline Phosphatase 117 U/L Aspartate Amino Transf (AST/SGOT) 23 U/L Alanine Aminotransferase (ALT/SGPT) 19 U/L Total Bilirubin 0.5 MG/DL Sodium Level 132 MEQ/L Potassium Level 4.9 MEQ/L Chloride Level 94 MEQ/L Carbon Dioxide Level 28.8 MEQ/L Anion Gap 9 MEQ/L Estimat Glomerular Filtration Rate 44 ML/MIN Serum Osmolality 305 MOSM/KG Lactic Acid Level 4.2 mmol/L Troponin I LESS THAN 0.02 NG/ML Lipase 47 U/L B-Hydroxybutyrate 0.29 MMOL/L MDM Supervised Visit with KIMMIE: Yes Diagnosis Primary Impression: Sepsis Qualified Codes: A41.9 - Sepsis, unspecified organism Additional Impressions: Elevated lactic acid level Bowel obstruction Qualified Codes: K56.699 - Other intestinal obstruction unspecified as to partial versus complete obstruction Ileus Nausea and vomiting in adult Dehydration Condition: Stable Tenzin Sanders MD May 25, 2017 18:43
--- NOTE | 2017-05-25 18:54 | HHI.HP ---
[facility] Physician Elder Rebolledo MD Admission Diagnosis Bowel Obstruction/Dehydration/Elevated Lactic Diagnoses: Chief Complaint: Abdominal pain, distention. Travel History International Travel<30 Days: No Contact w/Intl Traveler <30 Da: No Traveled to Known Affected Are: No Sepsis Criteria SIRS Criteria (2 or more): Heart rate over 90, WBC > 14519, < 4000 or > 10% bands Sepsis Criteria (SIRS+source): Infect source susp/known Severe Sepsis (+one): Lactate >2 History of Present Illness Mr. 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 Last night around 1 a.m. patient complained of abdominal pain, distension. He subsequently had four to five episodes of vomiting that smelled like fecal material. He has not had a bowel movement in 3 days. On arrival, patient has leukocytosis with WBC count 20.1K , lactic acid 4.7. CT abdomen pelvis shows small bowel and colonic distention with transition point at the splenic flexure. CT abdomen and pelvis also indicated possibility of neoplasm causing obstruction. Patient denies any headache, chest pain, cough, shortness of breath. denies any Dysuria and hematuria. Of note, patient has lost 20-30 lbs in the recent months. Review of Systems Except as stated in HPI: all other systems reviewed are Neg Past Family Social History Past Medical History third degree AV block status post pacemaker placement COPD diabetes mellitus Hypertension Past Surgical History no significant past surgical history Allergies: Coded Allergies: No Known Allergies (Unverified Adverse Reaction, Unknown, 05/25/17) Family History Father, mother, brother with heart disease. Social History smokes one pack a day. Drinks alcohol socially. Physical Exam Vital Signs Vital Signs Date Time Temp Pulse Resp B/P (MAP) Pulse Ox O2 Delivery O2 Flow Rate FiO2 05/25/17 17:45 97.6 99 16 101/58 (72) 99 Room Air 05/25/17 14:09 16 Physical Exam GENERAL: NG tube in place, mildly uncomfortable. SKIN: No rashes, ecchymoses or lesions. Warm and dry. HEAD: Atraumatic. Normocephalic. No temporal or scalp tenderness. EYES: Pupils equal round and reactive. No injection or drainage. ENT: Nose without bleeding, purulent drainage or septal hematoma. Airway patent. NECK: Trachea midline. No lymphadenopathy. Supple, nontender, no meningeal signs. CARDIOVASCULAR: Regular rate and rhythm without murmurs, gallops, or rubs. No JVD. RESPIRATORY: Clear to auscultation. Breath sounds equal bilaterally. No wheezes , rales, or rhonchi. GASTROINTESTINAL: Abdomen soft, nondistended. No guarding. Tender on moderate palpation. MUSCULOSKELETAL: Extremities without clubbing, cyanosis, or edema. NEUROLOGICAL: Awake and alert. Cranial nerves II through XII intact. No focal neurological deficits. Normal speech. Laboratory Laboratory Tests Test 05/25/17 14:26 05/25/17 14:30 Blood Gas Puncture Site INTRA-VENOUS Blood Gas Patient Temperature 98.6 Venous Blood pH 7.35 Venous Blood Partial Pressure CO2 55 Venous Blood Partial Pressure O2 18 Venous Blood HCO3 29 Venous Blood Oxygen Saturation 18 Venous Blood Oxygen Content 3.7 Venous Blood Base Excess 4.1 Blood Gas Inspired Oxygen 21 White Blood Count 20.1 Red Blood Count 4.91 Hemoglobin 14.1 Hematocrit 44.3 Mean Corpuscular Volume 90.2 Mean Corpuscular Hemoglobin 28.8 Mean Corpuscular Hemoglobin Concent 31.9 Red Cell Distribution Width 16.5 Platelet Count 478 Mean Platelet Volume 7.8 Neutrophils (%) (Auto) 82.3 Lymphocytes (%) (Auto) 10.4 Monocytes (%) (Auto) 7.0 Eosinophils (%) (Auto) 0.1 Basophils (%) (Auto) 0.2 Neutrophils # (Auto) 16.6 Lymphocytes # (Auto) 2.1 Monocytes # (Auto) 1.4 Eosinophils # (Auto) 0.0 Basophils # (Auto) 0.0 CBC Comment DIFF FINAL Differential Comment Blood Urea Nitrogen 39 Creatinine 1.57 Random Glucose 236 Total Protein 7.4 Albumin 2.8 Calcium Level 9.2 Phosphorus Level 5.7 Magnesium Level 2.6 Alkaline Phosphatase 117 Aspartate Amino Transf (AST/SGOT) 23 Alanine Aminotransferase (ALT/SGPT) 19 Total Bilirubin 0.5 Sodium Level 132 Potassium Level 4.9 Chloride Level 94 Carbon Dioxide Level 28.8 Anion Gap 9 Estimat Glomerular Filtration Rate 44 Serum Osmolality 305 Lactic Acid Level 4.2 Troponin I LESS THAN 0.02 Lipase 47 B-Hydroxybutyrate 0.29 Date/Time Source Procedure Growth Status 05/25/17 14:30 Blood Peripheral Aerobic Blood Culture Pending Received 05/25/17 14:30 Blood Peripheral Anaerobic Blood Culture Pending Received Result Diagram: 05/25/17 1430 05/25/17 1430 Imaging Last Impressions Abdomen/Pelvis CT 05/25/17 1428 Signed Impressions: Service Date/Time: Thursday, May 25, 2017 16:29 - CONCLUSION: 1. Severe small bowel and colonic distention to the level of the splenic flexure where there is a sharp transition zone. Obstructing neoplasm is not excluded. Willi Muñoz MD Foot X-Ray 05/25/17 140 Signed Impressions: Service Date/Time: Thursday, May 25, 2017 15:01 - CONCLUSION: Spiral fracture fifth metatarsal. Delfin Mittal MD FACR Chest X-Ray 05/25/171400 Signed Impressions: Service Date/Time: Thursday, May 25, 2017 14:59 - CONCLUSION: Moderate hyperinflation with pacer otherwise negative. Delfin Mittal MD FACR Caprini VTE Risk Assessment Caprini VTE Risk Assessment: Mod/High Risk (score >= 2) Caprini Risk Assessment Model Point Value = 1 Point Value = 2 Point Value = 3 Point Value = 5 Age 41-60 Minor surgery BMI > 25 kg/m2 Swollen legs Varicose veins or History of unexplained or recurrent spontaneous Oral contraceptives or hormone replacement Sepsis (< 1 month) Serious lung disease, including pneumonia (< 1 month) Abnormal pulmonary function Acute myocardial infarction Congestive heart failure (< 1 month) History of inflammatory bowel disease Medical patient at bed rest Age 61-74 Arthroscopic surgery Major open surgery (> 45 min) Laparoscopic surgery (> 45 min) Malignancy Confined to bed (> 72 hours) Immobilizing plaster cast Central venous access Age >= 75 History of VTE Family history of VTE Factor V Leiden Prothrombin [id number] Lupus anticoagulant Anticardiolipin antibodies Elevated serum homocysteine Heparin-induced thrombocytopenia Other congenital or acquired thrombophilia Stroke (< 1 month) Elective arthroplasty Hip, pelvis, or leg fracture Acute spinal cord injury (< 1 month) Prophylaxis Regimen Total Risk Factor Score Risk Level Prophylaxis Regimen 0-1 Low Early ambulation 2 Moderate Order ONE of the following: *Sequential Compression Device (SCD) *Heparin 5000 units SQ BID 3-4 Higher Order ONE of the following medications: *Heparin 5000 units SQ TID *Enoxaparin/Lovenox 40 mg SQ daily (WT < 150 kg, CrCl > 30 mL/min) *Enoxaparin/Lovenox 30 mg SQ daily (WT < 150 kg, CrCl > 10-29 mL/min) *Enoxaparin/Lovenox 30 mg SQ BID (WT < 150 kg, CrCl > 30 mL/min) AND/OR *Sequential Compression Device (SCD) 5 or more Highest Order ONE of the following medications: *Heparin 5000 units SQ TID (Preferred with Epidurals) *Enoxaparin/Lovenox 40 mg SQ daily (WT < 150 kg, CrCl > 30 mL/min) *Enoxaparin/Lovenox 30 mg SQ daily (WT < 150 kg, CrCl > 10-29 mL/min) *Enoxaparin/Lovenox 30 mg SQ BID (WT < 150 kg, CrCl > 30 mL/min) AND *Sequential Compression Device (SCD) Assessment and Plan Problem List: (1) Bowel obstruction ICD Code: K56.609 - Unspecified intestinal obstruction, unspecified as to partial versus complete obstruction Status: Acute (2) Sepsis ICD Code: A41.9 - Sepsis, unspecified organism Status: Acute (3) DM (diabetes mellitus) ICD Code: E11.9 - Type 2 diabetes mellitus without complications Status: Chronic (4) HTN (hypertension) ICD Code: I10 - Essential (primary) hypertension Status: Chronic (5) EDGARDO (acute kidney injury) ICD Code: N17.9 - Acute kidney failure, unspecified Status: Acute Assessment and Plan Mr. Gutierrez is a 66 year old male with a history of DM, HTN, 3rd degree AV block s/ p pacemaker placement who presents to the ED on 05/25/2017 due to sudden onset of abdominal pain, distention that started around 1:00AM. Small bowel obstruction Colonic obstruction - Continue NG tube on suction. - CT abd/pelvis reviewed by me, shows significant distention. - Will consult GI and General surgery. There is some concern that obstruction might be due to neoplasm. Sepsis (Tachycardia, leukocytosis, suspected infection abdominal) Probable intra-abdominal infection - Will start patient on Zosyn 4.5g Q8hrs. - Lactic acid improved from 4.7 --> 3.3. - Diabetes mellitus - Continue Levemir 18 units BID and start sliding scale insulin. - Hypertension - Lisinopril 2.5mg Qday, Carvedilol 3.125mg BID. - Dementia - Continue Donepezil 5mg QHS. Full code. SCDs. Physician Certification 2 Midnight Certification Type: Admission for Inpatient Services Order for Inpatient Services The services are ordered in accordance with Medicare regulations or non- Medicare payer requirements, as applicable. In the case of services not specified as inpatient-only, they are appropriately provided as inpatient services in accordance with the 2-midnight benchmark. Estimated LOS (days): 3 days is the estimated time the patient will need to remain in the hospital, assuming treatment plan goals are met and no additional complications. Post-Hospital Plan: Not yet determined Problem Qualifiers (1) Bowel obstruction: Qualified Codes: K56.699 - Other intestinal obstruction unspecified as to partial versus complete obstruction (2) Sepsis: Qualified Codes: A41.9 - Sepsis, unspecified organism Steven Blackmon DO May 25, 2017 18:54
[2017-05-25 20:00] VITALS: BP 100/57; PULSE 93; RESP 18; TEMP 98.5; O2SAT 97
[2017-05-25] MEDS: SODIUM CHLORIDE 0.9% FLUSH 10 ML FLUSH IV FLUSH SCH (21:00)
[2017-05-25 22:09] LABS: LACTIC ACID GHOST NOT REPORTABLE
[2017-05-25] MEDS ORDERED: GLUCAGON 1 MG/ML VIAL OTHER PRN (23:00)
[2017-05-26] VITALS (13 sets, daily range): BP systolic 80–122; BP diastolic 38–52; PULSE 78–105; RESP 16–28; TEMP 98–99; O2SAT 93–100
[2017-05-26] MEDS: ONDANSETRON HCL 4 MG/2 ML VIAL IVP PRN (00:08)
[2017-05-26] MEDS: PIPERACIL-TAZO 4.5 GM PREMIX 100 ML IV SCH ×2 (02:02→10:32)
[2017-05-26] MEDS: SODIUM CHLOR 0.9% 1000 ML INJ 1,000 ML IV SCH ×3 (03:34→19:00)
[2017-05-26] MEDS ORDERED: SODIUM CHLORID 0.9% 500 ML INJ 500 ML IV ONE (05:15)
[2017-05-26] MEDS: HEPARIN SODIUM - SQ 10,000 UNITS/ML VIAL SQ SCH ×2 (05:59→18:51)
[2017-05-26] MEDS ORDERED: SODIUM CHLOR 0.9% 1000 ML INJ 1,000 ML IV ONE (06:15)
[2017-05-26] MEDS: INSULIN ASPART SUPPLEMENTAL SCALE SQ SCH (08:00)
[2017-05-26 08:20] LABS: AUTOMATED NEUTROPHIL # 14.4 TH/MM3 (1.8-7.7); BASOPHIL % 0.1 % (0.0-2.0); HEMATOCRIT 40.2 % (39.0-51.0); HEMO FLAGS DIFF FINAL; LYMPH % 9.6 % (9.0-44.0); LYMPHOCYTE # 1.7 TH/MM3 (1.0-4.8); MEAN CELL VOLUME 90.3 FL (80.0-100.0); MEAN CORPUSCULAR HGB CONC 32.1 % (32.0-36.0); MONO % 6.4 % (0.0-8.0); NEUT % 83.9 % (16.0-70.0); PLATELET COUNT 346 TH/MM3 (150-450); RED BLOOD COUNT 4.45 MIL/MM3 (4.50-5.90); RED CELL DISTRIBUTION WIDTH 16.8 % (11.6-17.2); WHITE BLOOD COUNT 17.2 TH/MM3 (4.0-11.0)
[2017-05-26 08:42] LABS: BICARBONATE 18.5 MEQ/L (21.0-32.0); CALCIUM-PROTEIN CORRECTED 8.1 MG/DL (8.5-10.1); POTASSIUM 5.2 MEQ/L (3.5-5.1); TOTAL BILIRUBIN ADULT 0.4 MG/DL (0.2-1.0)
[2017-05-26] MEDS ORDERED: INSULIN DETEMIR 100 UNITS/ML VIAL SQ SCH (09:00)
[2017-05-26] MEDS ORDERED: PANTOPRAZOLE SOD 40 MG DELAYED RELEASE TAB PO SCH (09:00)
[2017-05-26] MEDS ORDERED: CARVEDILOL 3.125 MG TAB PO SCH (09:00)
[2017-05-26] MEDS ORDERED: LISINOPRIL 5 MG TAB PO SCH (09:00)
[2017-05-26] MEDS: SODIUM CHLORIDE 0.9% FLUSH 10 ML FLUSH IV FLUSH SCH ×2 (09:00→20:19)
[2017-05-26] MEDS: FLUoxetine HCL 20 MG CAP PO SCH (10:24)
[2017-05-26] MEDS ORDERED: SODIUM CHLOR 0.9% 1000 ML INJ 1,000 ML IV STA ×2 (10:35)
--- NOTE | 2017-05-26 11:11 | HHI.PR ---
Subjective Remarks Patient looks really fatigued today, I have a lung discussion with him and his , he is appropriately answer question denied abdominal pain, NG tube suctioning, as well as rectal tube which was inserted yesterday training grayish stool Occasional chills reported the patient The told me patient has had multiple frequent C. difficile colitis acquired it from a hospital in [place] He started to have feculent vomiting yesterday with abdominal distention no diarrhea Diarrhea that locked overnight profusely, so he needed rectal tube Objective Vitals Vital Signs Date Time Temp Pulse Resp B/P (MAP) Pulse Ox O2 Delivery O2 Flow Rate FiO2 05/26/17 08:00 98.3 101 16 88/40 (56) 93 05/26/17 06:48 100 87/52 (64) 05/26/17 06:41 102 18 82/50 (61) 05/26/17 06:04 18 80/48 (59) 98 05/26/17 05:08 105 20 80/51 (61) 05/25/17 20:00 98.5 93 18 100/57 (71) 97 05/25/17 17:45 97.6 99 16 101/58 (72) 99 Room Air 05/25/17 14:09 16 I/O 05/25/17 05/25/17 05/25/17 05/26/17 05/26/17 05/26/17 07:00 15:00 23:00 07:00 15:00 23:00 Intake Total 2250 ml 1600 ml 1000 ml Output Total 600 ml 600 ml 2000 ml Balance -600 ml 1650 ml -400 ml 1000 ml Intake IV Total 2250 ml 1600 ml 1000 ml Gastric Drainage Total 2000 ml Emesis 600 ml 600 ml # Bowel Movements 8 Result Diagram: 05/26/17 0620 05/26/17 0620 Imaging Last Impressions Abdomen/Pelvis CT 05/25/17 1428 Signed Impressions: Service Date/Time: Thursday, May 25, 2017 16:29 - CONCLUSION: 1. Severe small bowel and colonic distention to the level of the splenic flexure where there is a sharp transition zone. Obstructing neoplasm is not excluded. Willi Muñoz MD Foot X-Ray 05/25/17 1401 Signed Impressions: Service Date/Time: Thursday, May 25, 2017 15:01 - CONCLUSION: Spiral fracture fifth metatarsal. Delfin Mittal MD FACR Chest X-Ray 05/25/17 1401 Signed Impressions: Service Date/Time: Thursday, May 25, 2017 14:59 - CONCLUSION: Moderate hyperinflation with pacer otherwise negative. Delfin Mittal MD FACR Objective Remarks GENERAL: Frail 66 years old male, in no significant distress obvious SKIN: No rashes, warm and dry HEAD: Atraumatic. Normocephalic. EYES: Pupils equal round and reactive. Extraocular motions intact. No scleral icterus. ENT: Nose without bleeding, or drainage, Airway patent. NECK: Trachea midline. Supple CARDIOVASCULAR: Regular tachycardia without murmurs, gallops, or rubs. RESPIRATORY: Fair air entry bilaterally. No wheezes, rales, or rhonchi. GASTROINTESTINAL: Abdomen soft, non-tender, nondistended. Positive bowel sounds MUSCULOSKELETAL: Extremities without clubbing, cyanosis, or edema. Pedal pulses appreciated NEUROLOGICAL: Awake and alert still able to mention his name and recognize his , the month and the place with episodes of lethargy and delirium as per the nurse, moves all extremity. A/P Problem List: (1) Bowel obstruction ICD Code: K56.609 - Unspecified intestinal obstruction, unspecified as to partial versus complete obstruction Status: Acute (2) Sepsis ICD Code: A41.9 - Sepsis, unspecified organism Status: Acute (3) DM (diabetes mellitus) ICD Code: E11.9 - Type 2 diabetes mellitus without complications Status: Chronic (4) HTN (hypertension) ICD Code: I10 - Essential (primary) hypertension Status: Chronic (5) EDGARDO (acute kidney injury) ICD Code: N17.9 - Acute kidney failure, unspecified Status: Acute Assessment and Plan Severe sepsis going into septic shock with organ renal failure Severe diarrhea with 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 difficile Continue Zosyn Start iv Flagyl and by mouth vancomycin Stat ID consult D/W general surgery aren't the Stat intensive care consult, discussed with Transfer patient to [facility] Stat Accu-Chek showed blood glucose 219 CT abdomen has been reviewed personally by me Per surgery IRONER HAND patient may need EGD and colonoscopy Critical care time 75 minutes Problem Qualifiers (1) Bowel obstruction: Qualified Codes: K56.699 - Other intestinal obstruction unspecified as to partial versus complete obstruction (2) Sepsis: Qualified Codes: A41.9 - Sepsis, unspecified organism Jay Muñoz MD May 26, 2017 11:11
[2017-05-26] MEDS ORDERED: RESP: ALBUTEROL 2.5 MG/IPRATROPIUM 0.5 MG NEB (PRN) INH (11:45)
[2017-05-26] MEDS ORDERED: SODIUM CHLORIDE 0.9% FLUSH 10 ML FLUSH IV FLUSH PRN (11:45)
--- NOTE | 2017-05-26 11:55 | PD.CONS ---
HPI History of Present Illness This is a 66 year old male with hx DMI, CHF, c diff who presented with abd pain and distention, n/v, and diarrhea. Yesterday manager mass he had onset abdominal pain and vomiting what his assures me was feces. He has had diarrhea since February. He was admitted twice since February and had a work up in [place] including colonoscopy. says she was told he had c diff, ischemia, and that another doctor said ulcerative colitis. She does not know about biopsies or if he had an EGD at that time. At that time she reports he was passing stringy tissue like material via rectum, that has resolved. She said he subsequently tested neg for c diff but has continued to have loose stool. A ct scan showed small bowel and colon distention at splenic flexure with sharp transition point, neoplasm not excluded. Per EMR he has lost 20-30 lbs in the last few months. (Meka Vail) PFSH Past Medical History third degree AV block status post pacemaker placement COPD diabetes mellitus Hypertension CHF DKA EDGARDO Past Surgical History no significant past surgical history (Meka Vail) Coded Allergies: No Known Allergies (Unverified Adverse Reaction, Unknown, 05/25/17) Family History Father, mother, brother with heart disease. Social History smokes one pack a day. Drinks alcohol socially. occasional marijuana (Meka Vail) Review of Systems Constitutional: COMPLAINS OF: Fever Eyes: DENIES: Blurred vision Ears, nose, mouth, throat: DENIES: Hearing loss Respiratory: DENIES: Hemoptysis Cardiovascular: DENIES: Chest pain Gastrointestinal: COMPLAINS OF: Abdominal pain, Diarrhea, Nausea, Vomiting, DENIES: Black stools, Bloody stools, Constipation, Hematemesis Genitourinary: DENIES: Hematuria Musculoskeletal: COMPLAINS OF: Joint pain Integumentary: DENIES: Jaundice Neurologic: DENIES: Headache Psychiatric: COMPLAINS OF: Depression (Meka Vail) GI Exam Vitals I&O Vital Signs Date Time Temp Pulse Resp B/P (MAP) Pulse Ox O2 Delivery O2 Flow Rate FiO2 05/26/17 08:00 98.3 101 16 88/40 (56) 93 05/26/17 06:48 100 87/52 (64) 05/26/17 06:41 102 18 82/50 (61) 05/26/17 06:04 18 80/48 (59) 98 05/26/17 05:08 105 20 80/51 (61) 05/25/17 20:00 98.5 93 18 100/57 (71) 97 05/25/17 17:45 97.6 99 16 101/58 (72) 99 Room Air 05/25/17 14:09 16 I/O 05/25/17 05/25/17 05/25/17 05/26/17 05/26/17 05/26/17 07:00 15:00 23:00 07:00 15:00 23:00 Intake Total 2250 ml 1600 ml 2000 ml Output Total 600 ml 600 ml 2000 ml 1600 ml Balance -600 ml 1650 ml -400 ml 400 ml Intake Oral 0 ml IV Total 2250 ml 1600 ml 2000 ml Output Stool Total 1000 ml Gastric Drainage Total 2000 ml 600 ml Emesis 600 ml 600 ml # Bowel Movements 8 Imaging Last Impressions Abdomen/Pelvis CT 05/25/17 1428 Signed Impressions: Service Date/Time: Thursday, May 25, 2017 16:29 - CONCLUSION: 1. Severe small bowel and colonic distention to the level of the splenic flexure where there is a sharp transition zone. Obstructing neoplasm is not excluded. Willi Muñoz MD Foot X-Ray 05/25/17 140 Signed Impressions: Service Date/Time: Thursday, May 25, 2017 15:01 - CONCLUSION: Spiral fracture fifth metatarsal. Delfin Mittal MD FACR Chest X-Ray 05/25/17 1401 Signed Impressions: Service Date/Time: Thursday, May 25, 2017 14:59 - CONCLUSION: Moderate hyperinflation with pacer otherwise negative. Delfin Mittal MD FACR Laboratory Test 05/25/17 14:26 05/25/17 14:30 05/25/17 19:00 05/26/17 06:20 Blood Gas Puncture Site INTRA-VENOUS Blood Gas Patient Temperature 98.6 Venous Blood pH 7.35 Venous Blood Partial Pressure CO2 55 mmHg Venous Blood Partial Pressure O2 18 mmHg Venous Blood HCO3 29 mmol/L Venous Blood Oxygen Saturation 18 % Venous Blood Oxygen Content 3.7 Vol % Venous Blood Base Excess 4.1 mmol/L Blood Gas Inspired Oxygen 21 % White Blood Count 20.1 TH/MM3 17.2 TH/MM3 Red Blood Count 4.91 MIL/MM3 4.45 MIL/MM3 Hemoglobin 14.1 GM/DL 12.9 GM/DL Hematocrit 44.3 % 40.2 % Mean Corpuscular Volume 90.2 FL 90.3 FL Mean Corpuscular Hemoglobin 28.8 PG 29.0 PG Mean Corpuscular Hemoglobin Concent 31.9 % 32.1 % Red Cell Distribution Width 16.5 % 16.8 % Platelet Count 478 TH/MM3 346 TH/MM3 Mean Platelet Volume 7.8 FL 8.7 FL Neutrophils (%) (Auto) 82.3 % 83.9 % Lymphocytes (%) (Auto) 10.4 % 9.6 % Monocytes (%) (Auto) 7.0 % 6.4 % Eosinophils (%) (Auto) 0.1 % 0.0 % Basophils (%) (Auto) 0.2 % 0.1 % Neutrophils # (Auto) 16.6 TH/MM3 14.4 TH/MM3 Lymphocytes # (Auto) 2.1 TH/MM3 1.7 TH/MM3 Monocytes # (Auto) 1.4 TH/MM3 1.1 TH/MM3 Eosinophils # (Auto) 0.0 TH/MM3 0.0 TH/MM3 Basophils # (Auto) 0.0 TH/MM3 0.0 TH/MM3 CBC Comment DIFF FINAL DIFF FINAL Differential Comment Blood Urea Nitrogen 39 MG/DL 63 MG/DL Creatinine 1.57 MG/DL 2.28 MG/DL Random Glucose 236 MG/DL 208 MG/DL Total Protein 7.4 GM/DL 5.3 GM/DL Albumin 2.8 GM/DL 2.1 GM/DL Calcium Level 9.2 MG/DL 7.1 MG/DL Phosphorus Level 5.7 MG/DL Magnesium Level 2.6 MG/DL Alkaline Phosphatase 117 U/L 124 U/L Aspartate Amino Transf (AST/SGOT) 23 U/L 27 U/L Alanine Aminotransferase (ALT/SGPT) 19 U/L 15 U/L Total Bilirubin 0.5 MG/DL 0.4 MG/DL Sodium Level 132 MEQ/L 138 MEQ/L Potassium Level 4.9 MEQ/L 5.2 MEQ/L Chloride Level 94 MEQ/L 102 MEQ/L Carbon Dioxide Level 28.8 MEQ/L 18.5 MEQ/L Anion Gap 9 MEQ/L 18 MEQ/L Estimat Glomerular Filtration Rate 44 ML/MIN 29 ML/MIN Serum Osmolality 305 MOSM/KG Lactic Acid Level 4.2 mmol/L 3.3 mmol/L Troponin I LESS THAN 0.02 NG/ML Lipase 47 U/L B-Hydroxybutyrate 0.29 MMOL/L Hematology Comments Protein Corrected Calcium 8.1 MG/DL Test 05/26/17 10:58 Date/Time Source Procedure Growth Status 05/25/17 14:30 Blood Peripheral Aerobic Blood Culture - Preliminary NO GROWTH IN 1 DAY Resulted 05/25/17 14:30 Blood Peripheral Anaerobic Blood Culture - Preliminary NO GROWTH IN 1 DAY Resulted Physical Examination HEENT: PERRL; normocephalic; atraumatic; no jaundice. NGT, bilious output CHEST: CTA CARDIAC: Regular rate and rhythm with no murmur gallop or rubs. ABDOMEN: Soft, nondistended, diffusely TTP; no hepatosplenomegaly; bowel sounds are present in all four quadrants. EXTREMITIES: No clubbing, cyanosis, or edema. soft restraints. SKIN: Normal; no rash; no jaundice. T[employer] W[employer]PERATOR: lethargic (Meka Vail) Assessment and Plan Plan ASSESSMENT - abd pain, n/v, diarrhea - unclear etiology. ?partial obstruction. hx c diff. CT shows small and lg bowel distention with transtion point splenic flecture neoplasm not excluded. Does not have acute abdomen, passing copious liquid stool. Colonoscopy 02/2017 questionable findings. GS following, no plan for surgery currently. Pt getting transferred to critical care floor. c diff pending - leukocytosis - 20.1 on admission on flagyl and vanc - severe sepsis going into shock with organ renal failure per primary PLAN - tumor markers - EGD/colonoscopy when stable - cont NGT - cont vanc and flagyl - await c diff - monitor labs - supportive care - further recs to follow This pt seen by myself and Dr Perry and this note is written on her behalf (Meka Vail) Physician Comments seen, examined c diff positive discussed with -consider colonoscopy once stable possible in am (Chloe Perry MD) Meka Vail May 26, 2017 11:55 Chloe Perry MD May 26, 2017 16:59
--- NOTE | 2017-05-26 12:16 | PD.CONS ---
History of Present Illness Service Infectious disease Consult Requested By Dr Muñoz Reason for Consult Evaluate patient with sepsis, diarrhea Primary Care Physician Elder Rebolledo MD Diagnoses: History of Present Illness Patient seen and examined. Records reviewed. Patient is a 66-year-old male, presented to the hospital complaining of sudden onset of abdominal pain, nausea and vomiting. His vomiting apparently had a feculent smell. There was mention that he has not had a bowel movement for about 2-3 days. On presentation his WBC was up to 20,000. His lactic acid is elevated. CT of the abdomen and pelvis with IV contrast, but no oral contrast showing possible obstruction. Since admission patient has had significant volume of liquid stool. He was transferred to the ICU for hypotension and closer monitoring. He has not been febrile. He still complaining of abdominal pain. Patient is not a good historian. Got history from the patient's , as well as from old records. Patient was apparently in the hospital in [facility] in January 2017. At that time he had diarrhea, and workup showed evidence of colitis on the left side of his colon. There was no evidence of ischemic colitis by CTA, no IBD. MDuring that hospitalization he also had atrial fibrillation with RVR, and required cardioversion. Infectious disease consultation has been requested to evaluate the patient. Review of Systems Constitutional: COMPLAINS OF: Weight loss, Change in appetite, DENIES: Fever, Chills Eyes: DENIES: Eye pain Ears, nose, mouth, throat: DENIES: Nasal discharge, Throat pain, Ear Pain, Sinus Pain Respiratory: DENIES: Cough, Shortness of breath Cardiovascular: DENIES: Chest pain, Palpitations Gastrointestinal: COMPLAINS OF: Abdominal pain, Diarrhea, Nausea, Vomiting, Anorexia, DENIES: Difficulty Swallowing Genitourinary: DENIES: Dysuria Musculoskeletal: DENIES: Joint pain, Back pain Integumentary: DENIES: Pruritus, Rash Hematologic/lymphatic: COMPLAINS OF: Bruising Neurologic: DENIES: Headache Psychiatric: DENIES: Hallucinations Past Family Social History Allergies: Coded Allergies: No Known Allergies (Unverified Adverse Reaction, Unknown, 05/25/17) Past Medical History 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 difficile colitis RLE fracture, required a cast Past Surgical History R knee surgery CT for PTX Reported Medications I attest that I obtained, updated or reviewed the home and current medications. Reported Meds & Active Scripts Active Levemir Inj (Insulin Detemir) 1,000 unit/ 10 ML Vial 18 Units SQ BID Reported Aricept (Donepezil) 23 Mg Tab 5 Mg PO HS Do not split, crushed or chewed. Protonix (Pantoprazole Sodium) 40 Mg Tab 40 Mg PO DAILY Carvedilol 3.125 Mg Tab 3.125 Mg PO BID Novolin R Inj (Insulin Human Regular) 1,000 Unit/10 Ml Vial 1-9 Units SQ ACHS SLIDING SCALE Max dose at bedtime:( )units; sugars less than 70,(0) units; sugars 150-199,(1)unit; sugars 200-249,(3)units; sugars 250-299,(5) units; sugars 300-349,(7)units; sugars greater than 349,(9)units Lisinopril 10 Mg Tab 2.5 Mg PO DAILY Fluoxetine (Fluoxetine HCl) 40 Mg Cap 40 Cap PO DAILY Active Ordered Medications I attest that I obtained, updated or reviewed the home and current medications. Current Medications Medications (Trade) Dose Ordered Sig/Tricia Route Start Time Stop Time Status Last Admin (NS Flush) 2 ml UNSCH PRN IV FLUSH 05/25/17 17:45 (NS Flush) 2 ml BID IV FLUSH 05/25/17 21:00 (Zofran Inj) 4 mg Q6H PRN IVP 05/25/17 17:45 05/26/17 00:08 (Heparin Inj) 5,000 units Q12H SQ 05/25/17 18:00 05/26/17 05:59 (Narcan Inj) 0.4 mg UNSCH PRN IV PUSH 05/25/17 17:45 (Milk Of Magnesia Liq) 30 ml Q12H PRN PO 05/25/17 17:45 (Senokot) 17.2 mg Q12H PRN PO 05/25/17 17:45 (Dulcolax Supp) 10 mg DAILY PRN RECTAL 05/25/17 17:45 (Lactulose Liq) 30 ml DAILY PRN PO 05/25/17 17:45 Piperacillin Sod/ Tazobactam Sod 100 ml @ 200 mls/hr Q8H IV 05/26/17 02:00 05/26/17 10:32 (Coreg) 3.125 mg BID PO 05/26/17 09:00 (Aricept) 5 mg HS PO 05/26/17 21:00 (PROzac) 40 mg DAILY PO 05/26/17 09:00 05/26/17 10:24 (Protonix) 40 mg DAILY PO 05/26/17 09:00 05/26/17 10:24 (D50w (Vial) Inj) 50 ml UNSCH PRN IV PUSH 05/25/17 23:00 (Glucagon Inj) 1 mg UNSCH PRN OTHER 05/25/17 23:00 (NovoLOG SUPPLEMENTAL SCALE) 1 ACHS SLIDING SCALE SQ 05/26/17 08:00 Sodium Chloride 1,000 ml @ 125 mls/hr Q8H IV 05/26/17 11:00 Metronidazole 100 ml @ 100 mls/hr Q6H IV 05/26/17 11:00 UNV (VANCOMYCIN for oral use only) 250 mg QID PO 05/26/17 13:00 (Duoneb Neb) 1 ampule Q4HR NEB PRN INH 05/26/17 11:45 Family History Heart disease Social History Smokes one pack a day. Drinks alcohol socially. Denies illicit drugs Physical Exam Vital Signs Vital Signs Date Time Temp Pulse Resp B/P (MAP) Pulse Ox O2 Delivery O2 Flow Rate FiO2 05/26/17 08:00 98.3 101 16 88/40 (56) 93 05/26/17 06:48 100 87/52 (64) 05/26/17 06:41 102 18 82/50 (61) 05/26/17 06:04 18 80/48 (59) 98 05/26/17 05:08 105 20 80/51 (61) 05/25/17 20:00 98.5 93 18 100/57 (71) 97 05/25/17 17:45 97.6 99 16 101/58 (72) 99 Room Air 05/25/17 14:09 16 Physical Exam GENERAL: Patient is a thin, well-developed male, slightly lethargic, answered some of my questions, not in respiratory distress. SKIN: Cool and dry. No generalized rash, no ecchymoses and no evidence of embolic lesions. HEAD: Atraumatic. Normocephalic. No temporal wasting, or tenderness. EYES: [place] conjunctiva. No petechia or hemorrhage. Pupils equal, round and reactive to light. Extraocular movements full and intact. No scleral icterus. No injection or drainage. EARS, NOSE AND THROAT: Nose without bleeding or purulent nasal discharge. No sinus tenderness. Mucous membranes pink and moist. Poor dentition. No oral thrush. NECK: Trachea midline. Supple and not tender, no meningeal signs CARDIOVASCULAR: Regular rate and rhythm. No murmurs, rubs or gallops heard. Pacer in L upper chest, with no evidence of infection RESPIRATORY: Clear to auscultation. Breath sounds equal bilaterally. No rales , wheezing or rhonchi. Decreased at bases ABDOMEN: Soft, mildly distended, with diffuse tenderness, in lower quadrants, more on R than on L. Bowel sounds present and hypoactive, no guarding. No rebound. No organomegaly. EXTREMITIES: No clubbing, cyanosis, or edema. No joint effusion, has good ROM. No calf tenderness. Well perfused and warm. A small ulcer in R medial heel, with no evidence of infection NEUROLOGICAL: Slightly lethargic. Cranial nerves grossly intact. Motor grossly within normal limits. PSYCHIATRIC: Normal affect, calm and cooperative. LINE: No evidence of infection Laboratory Laboratory Tests Test 05/25/17 14:26 05/25/17 14:30 05/25/17 19:00 05/26/17 06:20 Blood Gas Puncture Site INTRA-VENOUS Blood Gas Patient Temperature 98.6 Venous Blood pH 7.35 Venous Blood Partial Pressure CO2 55 Venous Blood Partial Pressure O2 18 Venous Blood HCO3 29 Venous Blood Oxygen Saturation 18 Venous Blood Oxygen Content 3.7 Venous Blood Base Excess 4.1 Blood Gas Inspired Oxygen 21 White Blood Count 20.1 17.2 Red Blood Count 4.91 4.45 Hemoglobin 14.1 12.9 Hematocrit 44.3 40.2 Mean Corpuscular Volume 90.2 90.3 Mean Corpuscular Hemoglobin 28.8 29.0 Mean Corpuscular Hemoglobin Concent 31.9 32.1 Red Cell Distribution Width 16.5 16.8 Platelet Count 478 346 Mean Platelet Volume 7.8 8.7 Neutrophils (%) (Auto) 82.3 83.9 Lymphocytes (%) (Auto) 10.4 9.6 Monocytes (%) (Auto) 7.0 6.4 Eosinophils (%) (Auto) 0.1 0.0 Basophils (%) (Auto) 0.2 0.1 Neutrophils # (Auto) 16.6 14.4 Lymphocytes # (Auto) 2.1 1.7 Monocytes # (Auto) 1.4 1.1 Eosinophils # (Auto) 0.0 0.0 Basophils # (Auto) 0.0 0.0 CBC Comment DIFF FINAL DIFF FINAL Differential Comment Blood Urea Nitrogen 39 63 Creatinine 1.57 2.28 Random Glucose 236 208 Total Protein 7.4 5.3 Albumin 2.8 2.1 Calcium Level 9.2 7.1 Phosphorus Level 5.7 Magnesium Level 2.6 Alkaline Phosphatase 117 124 Aspartate Amino Transf (AST/SGOT) 23 27 Alanine Aminotransferase (ALT/SGPT) 19 15 Total Bilirubin 0.5 0.4 Sodium Level 132 138 Potassium Level 4.9 5.2 Chloride Level 94 102 Carbon Dioxide Level 28.8 18.5 Anion Gap 9 18 Estimat Glomerular Filtration Rate 44 29 Serum Osmolality 305 Lactic Acid Level 4.2 3.3 Troponin I LESS THAN 0.02 Lipase 47 B-Hydroxybutyrate 0.29 Hematology Comments Protein Corrected Calcium 8.1 Test 05/26/17 10:58 Date/Time Source Procedure Growth Status 05/25/17 14:30 Blood Peripheral Aerobic Blood Culture - Preliminary NO GROWTH IN 1 DAY Resulted 05/25/17 14:30 Blood Peripheral Anaerobic Blood Culture - Preliminary NO GROWTH IN 1 DAY Resulted Result Diagram: 05/26/17 0620 05/26/17 0620 Imaging RADIOLOGY STUDIES/FILMS REVIEWED Last Impressions Abdomen/Pelvis CT 05/25/17 1428 Signed Impressions: Service Date/Time: Thursday, May 25, 2017 16:29 - CONCLUSION: 1. Severe small bowel and colonic distention to the level of the splenic flexure where there is a sharp transition zone. Obstructing neoplasm is not excluded. Willi Muñoz MD Foot X-Ray 05/25/17 1401 Signed Impressions: Service Date/Time: Thursday, May 25, 2017 15:01 - CONCLUSION: Spiral fracture fifth metatarsal. Delfin Mittal MD FACR Chest X-Ray 05/25/17 1401 Signed Impressions: Service Date/Time: Thursday, May 25, 2017 14:59 - CONCLUSION: Moderate hyperinflation with pacer otherwise negative. Delfin Mittal MD FACR Assessment and Plan Assessment and Plan IMPRESSION Sepsis on presentationk, now with shock, has N/V and diarrhea - ?Recurrent C diff colitis, ?ischemic bowel (previous CTA ok per records, ?due to low flow state from hypotension) ?Bowel obstruction, last colonoscopy no mention of colon mass Prob with CKD, with worsening due to hypotension RECOMMENDATION GI and surgery evaluating patient Continue empiric C diff Rx : IV Flagyl and po Vancomycin Also on Zosyn - If C diff positive will top Zosyn CCM also on case for his hypotension Follow C/S Monitor progress I will follow along with you Thank you for this consultation Discussed Condition With D/W RN Spoke with D/W DR Rodriguez () Smiley Medina MD May 26, 2017 12:16
[2017-05-26] MEDS ORDERED: PHENYLEPHRINE HCL 10 MG/ML VIAL ONE (12:38)
[2017-05-26] MEDS ORDERED: TERBUTALINE INJ 1 MG/ML AMP SQ PRN ×2 (13:00→14:30)
[2017-05-26] MEDS ORDERED: PHENYLEPHRINE 40 MG in D5W 500 ML IV PRN (13:00)
[2017-05-26 13:23] LABS: C. DIFF EPI 027 PRESUMPTIVE POSITIVE (NEGATIVE)
--- NOTE | 2017-05-26 13:26 | HHI.PR ---
Subjective Subjective Notes Resting in bed; at bedside Patient reports his pain is better today and wants water and Pietro Patient is hypotensive with unknown urine output due to incontinence Transferred to [facility]---- arterial inserted by Dr. Chery and started on Norsynephrine drip; SBP in the low 100s See at bedside with Dr. Soares, Dr. Chery and Dr. Medina Objective Vitals/I&O Vital Signs Date Time Temp Pulse Resp B/P (MAP) Pulse Ox O2 Delivery O2 Flow Rate FiO2 05/26/17 08:00 101 05/26/17 08:00 98.3 16 88/40 (56) 93 05/25/17 17:45 Room Air Labs Laboratory Tests Test 05/25/17 14:26 05/25/17 14:30 05/25/17 19:00 05/26/17 06:20 Blood Gas Puncture Site INTRA-VENOUS Blood Gas Patient Temperature 98.6 Venous Blood pH 7.35 Venous Blood Partial Pressure CO2 55 Venous Blood Partial Pressure O2 18 Venous Blood HCO3 29 Venous Blood Oxygen Saturation 18 Venous Blood Oxygen Content 3.7 Venous Blood Base Excess 4.1 Blood Gas Inspired Oxygen 21 White Blood Count 20.1 17.2 Red Blood Count 4.91 4.45 Hemoglobin 14.1 12.9 Hematocrit 44.3 40.2 Mean Corpuscular Volume 90.2 90.3 Mean Corpuscular Hemoglobin 28.8 29.0 Mean Corpuscular Hemoglobin Concent 31.9 32.1 Red Cell Distribution Width 16.5 16.8 Platelet Count 478 346 Mean Platelet Volume 7.8 8.7 Neutrophils (%) (Auto) 82.3 83.9 Lymphocytes (%) (Auto) 10.4 9.6 Monocytes (%) (Auto) 7.0 6.4 Eosinophils (%) (Auto) 0.1 0.0 Basophils (%) (Auto) 0.2 0.1 Neutrophils # (Auto) 16.6 14.4 Lymphocytes # (Auto) 2.1 1.7 Monocytes # (Auto) 1.4 1.1 Eosinophils # (Auto) 0.0 0.0 Basophils # (Auto) 0.0 0.0 CBC Comment DIFF FINAL DIFF FINAL Differential Comment Blood Urea Nitrogen 39 63 Creatinine 1.57 2.28 Random Glucose 236 208 Total Protein 7.4 5.3 Albumin 2.8 2.1 Calcium Level 9.2 7.1 Phosphorus Level 5.7 Magnesium Level 2.6 Alkaline Phosphatase 117 124 Aspartate Amino Transf (AST/SGOT) 23 27 Alanine Aminotransferase (ALT/SGPT) 19 15 Total Bilirubin 0.5 0.4 Sodium Level 132 138 Potassium Level 4.9 5.2 Chloride Level 94 102 Carbon Dioxide Level 28.8 18.5 Anion Gap 9 18 Estimat Glomerular Filtration Rate 44 29 Serum Osmolality 305 Lactic Acid Level 4.2 3.3 Troponin I LESS THAN 0.02 Lipase 47 B-Hydroxybutyrate 0.29 Hematology Comments Protein Corrected Calcium 8.1 Test 05/26/17 10:58 Date/Time Source Procedure Growth Status 05/25/17 14:30 Blood Peripheral Aerobic Blood Culture - Preliminary NO GROWTH IN 1 DAY Resulted 05/25/17 14:30 Blood Peripheral Anaerobic Blood Culture - Preliminary NO GROWTH IN 1 DAY Resulted Cardiovascular: Regular Lungs: Clear Abdomen: Other (non distended; minimal tenderness in RLQ; NGT to LIWS and rectal tube in place with matias colored stool ) Extremities: No edema A/P Assessment and Plan 66 year old male with diarrhea; diffuse abdominal distention---? neoplastic mass -NPO -NGT to LIWS -NS bolus x2 -Transfer to [facility]; arterial line started and started on Norsynephrine -GI following -Ideally would like patient to be stable and plan for GI to scope before operative intervention -Discussed in detail with the patient's at bedside Attending Statement patient seen at bedside transferred to [facility] abdominal pain but without peritoneal signs discuss with gi to do colonoscopy continue resuscitation Attestation The exam, history, and the medical decision-making described in the above note were completed with the assistance of the mid-level provider. I reviewed and agree with the findings presented. I attest that I had a [id number] encounter with the patient on the same day, and personally performed and documented my assessment and findings in the medical record. Marianne Torres May 26, 2017 13:26 Michael Soares MD May 30, 2017 04:24
[2017-05-26] MEDS ORDERED: fentaNYL CITRATE 250 MCG/5 ML AMP IV PUSH ONE (13:30)
[2017-05-26] MEDS ORDERED: MIDAZOLAM HCL 2 MG/2 ML VIAL IV PUSH ONE (13:30)
--- NOTE | 2017-05-26 14:01 | PD.PROCEDR ---
Central Line Procedure REASON FOR PROCEDURE Central venous access PROCEDURE PERFORMED Central line placement: Right subclavian CONSENT Informed consent for procedure was obtained . The risks and benefits of the procedure were discussed to include but limited to bleeding, clot formation , infection, and even . ANESTHESIA Local injection of 1% Lidocaine DESCRIPTION OF THE PROCEDURE The patient was placed in supine, mild Trendelenburg position. The area was exposed and cleansed with ChloraPrep, times two. Large sterile drape was used to cover the patient, with the site exposed, under sterile conditions including cap, face mask, sterile gown, and sterile gloves. On single attempt, the introducer needle was inserted with negative pressure in syringe and venous flash was obtained. The guide wire was then advanced without any restriction and the needle was removed. The dilator was used without any complications. Using Seldinger technique the 7F catheter was advanced over the guide wire to a depth of 18 centimeters. The guide wire was removed. All ports were aspirated with dark venous blood return and flushed easily with sterile saline. All ports were capped. Antibiotic disc was placed around central line at puncture site. The central line was secured to the skin with two interrupted 2.0 silk sutures. The area was bandaged with sterile see-through central line bandage COMPLICATIONS: No apparent complications ESTIMATED BLOOD LOSS: Less than 1 cc. Chioma Chery MD May 26, 2017 14:00
--- NOTE | 2017-05-26 14:02 | PD.PROCEDR ---
Procedure Note Procedure Procedure: Arterial Line Placement Right radial Diagnosis: Hemodynamic instability Indications: Same Consent: Obtained from Description of the Procedure: The right wrist was prepped and draped sterilely. 1% lidocaine was used for local anesthesia. The pulse was located and a needle was advanced into the artery. A 20 gauge, 1.34 cm catheter was advanced into the artery using a modified Seldinger technique. The catheter was sutured to the skin and a sterile dressing was applied. The catheter was connected to a pressure transducer and an arterial waveform was noted. There were no immediate complications noted. There was minimal EBL. I personally performed the procedure. Chioma Chery MD May 26, 2017 14:02
[2017-05-26 14:23] LABS: BLOOD GAS BASE EXCESS -7.8 mmol/L (-2-2); BLOOD GAS CARBOXYHEMOGLOBIN 0.9 % (0-4); BLOOD GAS HCO3 17 mmol/L (22-26); BLOOD GAS METHEMOGLOBIN 1.9 % (0-2); BLOOD GAS O2 HGB SATURATION 93 % (90-100); BLOOD GAS OXYGEN CONTENT 14.7 Vol % (12.0-20.0); BLOOD GAS PCO2 29 mmHg (38-42); BLOOD GAS PO2 93 mmHg (61-120); BLOOD GAS TOTAL HGB 11.2 G/DL (12.0-16.0); CRITICAL VALUE NO; DRAW SITE ART LINE; LITER FLOW 2.5 L/M; OXYGEN DEVICE NASAL CANNULA; TEMP CORR TO 98.6
[2017-05-26] MEDS: metroNIDAZOLE 500 MG INJ 100 ML IV SCH ×2 (14:23→20:19)
[2017-05-26] MEDS: VANCOMYCIN 500 MG VIAL (FOR ORAL USE ONLY) PO SCH ×3 (14:23→20:18)
[2017-05-26 14:24] LABS: STAT NO
[2017-05-26 14:26] LABS: AUTOMATED NEUTROPHIL # 18.5 TH/MM3 (1.8-7.7); BASOPHIL % 0.1 % (0.0-2.0); HEMATOCRIT 33.6 % (39.0-51.0); HEMO FLAGS DIFF FINAL; LYMPH % 5.5 % (9.0-44.0); LYMPHOCYTE # 1.1 TH/MM3 (1.0-4.8); MEAN CELL VOLUME 89.7 FL (80.0-100.0); MEAN CORPUSCULAR HGB CONC 32.4 % (32.0-36.0); MONO % 2.6 % (0.0-8.0); NEUT % 91.8 % (16.0-70.0); PLATELET COUNT 330 TH/MM3 (150-450); RED BLOOD COUNT 3.74 MIL/MM3 (4.50-5.90); RED CELL DISTRIBUTION WIDTH 16.2 % (11.6-17.2); WHITE BLOOD COUNT 20.2 TH/MM3 (4.0-11.0)
[2017-05-26] MEDS ORDERED: NOREPINEPHRINE INJ 4 MG in SODIUM CHLOR 0.9% 250 ML INJ 246 ML IV PRN (14:30)
[2017-05-26 14:41] LABS: INTERNATIONAL NORMALIZED RATIO 1.2 RATIO; PROTHROMBIN TIME - PATIENT 12.9 SEC (9.8-11.6)
[2017-05-26 14:46] LABS: BETA-HYDROXYBUTYRATE 0.9 MMOL/L (0.00-0.39)
[2017-05-26] MEDS ORDERED: CALCIUM GLUCONATE INJ 2 GM in SODIUM CHLORIDE 0.9% INJ 100 ML IV ONE (15:00)
--- NOTE | 2017-05-26 15:02 | RADRPT ---
EXAM DATE/TIME: 05/26/2017 13:53 [place] COMPARISON: CHEST SINGLE AP, May 25, 2017, 14:59. INDICATIONS : Chest pains. MEDICAL HISTORY : Chronic obstructive pulmonary disease. SURGICAL HISTORY : Pacemaker. ENCOUNTER: Subsequent ACUITY: 2 days PAIN SCORE: 5/10 LOCATION: Bilateral chest FINDINGS: A single AP portable semierect view of the chest was obtained and demonstrates interval placement of a nasogastric tube with the distal side-port projected over the distal esophagus. The tip is in the p roximal most stomach. The left subclavian AV sequential transvenous pacer remains in place. There is been interval placement of a right subclavian central venous line with no pneumothorax. The lungs are clear with no confluent infiltrates or effusions. The heart size is within normal limits. There is a calcified granuloma again noted in the right midlung. CONCLUSION: 1. Interval placement of right central venous catheter with no pneumothorax. 2. Interval placement nasogastric tube with the side port projected over the distal esophagus. This c ould be advanced at least 4-5 cm. 3. No acute cardiopulmonary disease. Slick Baeza MD on May 26, 2017 at 14:59 Board Certified Radiologist. This report was verified electronically.
--- NOTE | 2017-05-26 15:03 | HHI.HP ---
HPI Service Critical Care Medicine Primary Care Physician Elder Rebolledo MD Admission Diagnosis Bowel Obstruction/Dehydration/Elevated Lactic Diagnosis: (1) Bowel obstruction (2) Sepsis (3) DM (diabetes mellitus) (4) HTN (hypertension) (5) EDGARDO (acute kidney injury) Travel History International Travel<30 Days: No Contact w/Intl Traveler <30 Da: No Traveled to Known Affected Are: No History of Present Illness This is a a 66 year old male with a history of diabetes mellitus type 1, diabetic ulcer, 3rd degree heart block S/p pacemaker placement that presented to the emergency department on 05/25/2017 due to sudden onset of abdominal pain , nausea and vomiting. He has not had a bowel movement in 3 days. On arrival, patient has leukocytosis with WBC count 20.1K, lactic acid 4.7. CT abdomen pelvis shows small bowel and colonic distention with transition point at the splenic flexure. CT abdomen and pelvis also indicated possibility of neoplasm causing obstruction. Patient denies any headache, chest pain, cough, shortness of breath. denies any Dysuria and hematuria. Of note, patient has lost 20-30 lbs in the recent months. The patient was admitted to the medical floor, throughout the night the patient condition deteriorated became hemodynamically unstable, systolic blood pressures in the 80s. Critical care medicine was consulted. The patient was transferred to the [facility], upon presentation the patient was noted to have a blood pressure 79/50, HR 90's the patient was bolused 2 L of normal saline IV fluid right regarding A-line was placed the patient was placed on low dose phenylephrine infusion 20 mcgs. Consent was obtained and a right subclavian central line was placed the patient received a third liter IV fluids labs are pending at this time. Of note patient previously at [facility] in [place] when noted to have biopsies records not obtained at this time reveals abnormal pathology unknown. CEA levels pending. Physical Exam Vital Signs Vital Signs Date Time Temp Pulse Resp B/P (MAP) Pulse Ox O2 Delivery O2 Flow Rate FiO2 05/26/17 08:00 101 05/26/17 08:00 98.3 101 16 88/40 (56) 93 05/26/17 06:48 100 87/52 (64) 05/26/17 06:41 102 18 82/50 (61) 05/26/17 06:04 18 80/48 (59) 98 05/26/17 05:08 105 20 80/51 (61) 05/25/17 20:00 98.5 93 18 100/57 (71) 97 05/25/17 17:45 97.6 99 16 101/58 (72) 99 Room Air Physical Exam GENERAL: Emaciated critically ill-appearing gentleman alert and oriented SKIN: Warm and dry. Poor skin turgor HEAD: Atraumatic. Normocephalic. EYES: Pupils equal and round. No scleral icterus. No injection or drainage. ENT: No nasal bleeding or discharge. Mucous membranes dry NECK: Trachea midline. No JVD. CARDIOVASCULAR: Normal rate, regular rhythm. RESPIRATORY: No accessory muscle use. Clear to auscultation. Breath sounds equal bilaterally. GASTROINTESTINAL: Abdomen soft, non-tender, nondistended. No guarding. MUSCULOSKELETAL: Extremities without clubbing, cyanosis, or edema. No obvious deformities. NEUROLOGICAL: Awake and alert. RASS 0. No gross focal/sensory deficits. Follows commands in all 4 extremities. Laboratory Laboratory Tests Test 05/25/17 14:26 05/25/17 14:30 05/25/17 19:00 05/26/17 06:20 Blood Gas Puncture Site INTRA-VENOUS Blood Gas Patient Temperature 98.6 Venous Blood pH 7.35 Venous Blood Partial Pressure CO2 55 Venous Blood Partial Pressure O2 18 Venous Blood HCO3 29 Venous Blood Oxygen Saturation 18 Venous Blood Oxygen Content 3.7 Venous Blood Base Excess 4.1 Blood Gas Inspired Oxygen 21 White Blood Count 20.1 17.2 Red Blood Count 4.91 4.45 Hemoglobin 14.1 12.9 Hematocrit 44.3 40.2 Mean Corpuscular Volume 90.2 90.3 Mean Corpuscular Hemoglobin 28.8 29.0 Mean Corpuscular Hemoglobin Concent 31.9 32.1 Red Cell Distribution Width 16.5 16.8 Platelet Count 478 346 Mean Platelet Volume 7.8 8.7 Neutrophils (%) (Auto) 82.3 83.9 Lymphocytes (%) (Auto) 10.4 9.6 Monocytes (%) (Auto) 7.0 6.4 Eosinophils (%) (Auto) 0.1 0.0 Basophils (%) (Auto) 0.2 0.1 Neutrophils # (Auto) 16.6 14.4 Lymphocytes # (Auto) 2.1 1.7 Monocytes # (Auto) 1.4 1.1 Eosinophils # (Auto) 0.0 0.0 Basophils # (Auto) 0.0 0.0 CBC Comment DIFF FINAL DIFF FINAL Differential Comment Blood Urea Nitrogen 39 63 Creatinine 1.57 2.28 Random Glucose 236 208 Total Protein 7.4 5.3 Albumin 2.8 2.1 Calcium Level 9.2 7.1 Phosphorus Level 5.7 Magnesium Level 2.6 Alkaline Phosphatase 117 124 Aspartate Amino Transf (AST/SGOT) 23 27 Alanine Aminotransferase (ALT/SGPT) 19 15 Total Bilirubin 0.5 0.4 Sodium Level 132 138 Potassium Level 4.9 5.2 Chloride Level 94 102 Carbon Dioxide Level 28.8 18.5 Anion Gap 9 18 Estimat Glomerular Filtration Rate 44 29 Serum Osmolality 305 Lactic Acid Level 4.2 3.3 Troponin I LESS THAN 0.02 Lipase 47 B-Hydroxybutyrate 0.29 Hematology Comments Protein Corrected Calcium 8.1 Test 05/26/17 10:58 05/26/17 14:00 Stool C. difficile Toxin (PCR) POSITIVE Stl C. difficile Toxin Epiderm 027 PRESUMPTIVE POSITIVE Date/Time Source Procedure Growth Status 05/25/17 14:30 Blood Peripheral Aerobic Blood Culture - Preliminary NO GROWTH IN 1 DAY Resulted 05/25/17 14:30 Blood Peripheral Anaerobic Blood Culture - Preliminary NO GROWTH IN 1 DAY Resulted Result Diagram: 05/26/1720 05/26/17 06 Imaging Last Impressions Abdomen/Pelvis CT 05/25/17 1428 Signed Impressions: Service Date/Time: Thursday, May 25, 2017 16:29 - CONCLUSION: 1. Severe small bowel and colonic distention to the level of the splenic flexure where there is a sharp transition zone. Obstructing neoplasm is not excluded. Willi Muñoz MD Foot X-Ray 05/25/17 140 Signed Impressions: Service Date/Time: Thursday, May 25, 2017 15:01 - CONCLUSION: Spiral fracture fifth metatarsal. Delfin Mittal MD FACR Chest X-Ray 05/25/17 140 Signed Impressions: Service Date/Time: Thursday, May 25, 2017 14:59 - CONCLUSION: Moderate hyperinflation with pacer otherwise negative. Delfin Mittal MD FACR Septic Shock Reassessment Heart: Regular rate and rhythm Lungs: Clear Skin: Dry Peripheral Pulses: Weak Right Radial Weak Left Radial Weak Right Dorsalis Pedis Weak Left Dorsalis Pedis Caprini VTE Risk Assessment Caprini VTE Risk Assessment: Mod/High Risk (score >= 2) Caprini Risk Assessment Model Point Value = 1 Point Value = 2 Point Value = 3 Point Value = 5 Age 41-60 Minor surgery BMI > 25 kg/m2 Swollen legs Varicose veins or History of unexplained or recurrent spontaneous Oral contraceptives or hormone replacement Sepsis (< 1 month) Serious lung disease, including pneumonia (< 1 month) Abnormal pulmonary function Acute myocardial infarction Congestive heart failure (< 1 month) History of inflammatory bowel disease Medical patient at bed rest Age 61-74 Arthroscopic surgery Major open surgery (> 45 min) Laparoscopic surgery (> 45 min) Malignancy Confined to bed (> 72 hours) Immobilizing plaster cast Central venous access Age >= 75 History of VTE Family history of VTE Factor V Leiden Prothrombin [id number] Lupus anticoagulant Anticardiolipin antibodies Elevated serum homocysteine Heparin-induced thrombocytopenia Other congenital or acquired thrombophilia Stroke (< 1 month) Elective arthroplasty Hip, pelvis, or leg fracture Acute spinal cord injury (< 1 month) Prophylaxis Regimen Total Risk Factor Score Risk Level Prophylaxis Regimen 0-1 Low Early ambulation 2 Moderate Order ONE of the following: *Sequential Compression Device (SCD) *Heparin 5000 units SQ BID 3-4 Higher Order ONE of the following medications: *Heparin 5000 units SQ TID *Enoxaparin/Lovenox 40 mg SQ daily (WT < 150 kg, CrCl > 30 mL/min) *Enoxaparin/Lovenox 30 mg SQ daily (WT < 150 kg, CrCl > 10-29 mL/min) *Enoxaparin/Lovenox 30 mg SQ BID (WT < 150 kg, CrCl > 30 mL/min) AND/OR *Sequential Compression Device (SCD) 5 or more Highest Order ONE of the following medications: *Heparin 5000 units SQ TID (Preferred with Epidurals) *Enoxaparin/Lovenox 40 mg SQ daily (WT < 150 kg, CrCl > 30 mL/min) *Enoxaparin/Lovenox 30 mg SQ daily (WT < 150 kg, CrCl > 10-29 mL/min) *Enoxaparin/Lovenox 30 mg SQ BID (WT < 150 kg, CrCl > 30 mL/min) AND *Sequential Compression Device (SCD) Assessment and Plan Assessment and Plan Assessment This is a 66-year-old male patient with a history of C. difficile colitis, fungal esophagitis, duodenal ulcer, erosive gastritis previously hospitalized , now presenting with most likely septic shock secondary to C. difficile colitis versus ischemic bowel from small bowel obstruction. Admit to ICU. Assessment C. difficile colitis Possible Small bowel obstruction Anion gap metabolic acidosis Hypertension Diabetes mellitus Acute on chronic kidney injury Dehydration H/O [place] Cardiomyopathy Tonic systolic congestive heart failure History of third-degree block status post pacemaker insertion H/O Afib RVR (03/12) Cardioverted Dementia mild Diabetic peripheral neuropathy History of tobacco abuse History of alcohol abuse Dyslipidemia Plan Plan by systems: Neurologic: Neurochecks per ICU protocol Avoid sedative type medications Ofirmev IV every 6 hours when necessary Patient previously 14 shots of liquor per week, per old medical records (02/2017 ) 2 shots of Rum/day Monitor for signs of alcohol withdrawal Seizure precautions Continue donepezil 5 mg q hs, continue gabapentin Fluoxetine 40 mg /day Respiratory: Maintain O2 sat greater than 92% Bronchodilators every 4 hours when necessary for wheezing Currently O2 at 2 L nasal cannula Obtain ABG 7.37/29/92/16.5/-7.8 H/O smoking 50 pack years. Counseled on smoking cessation Cardiovascular: Maintain MAP greater than 65mmHg Begin Levophed and Phenylephrine infusions to maintain MAP F/U Pacemaker interrogation Discontinue lisinopril BLAZE inhibitor in the setting of acute kidney injury Hold carvedilol 3.125 BID secondary to hypotension ASA 81mg placed on hold for now Monitor CVP Echo from previous hospital 02/27/17 EF 53% (Previously 30%) Renal: Patient bolused x 3 liters Insert selby -- Strict I/Os FEN/GI: Monitor electrolytes and replete Replete calcium 2GM calcium gluconate Normal Saline 125 cc/hour Patient previously on atorvastatin Obtain LFTs Heme/ID: Obtain blood, urine cultures Obtain serial lactate levels F/U LDH Obtain Procalcitonin level ID following Dr. Medina-IV Flagyl, by mouth Vanco 250mg QID F/U CEA levels Previously hospitalized 03/12/17 C. difficile colitis Endocrine: Glucose monitoring per ICU protocol medium dose regimen DC Levemir -- SSI Prophylaxis: GI Prophylaxis Protonix will change to famotidine in the setting of chronic kidney disease DVT Prophylaxis -- SCDs Heparin Lines: Peripheral IVs 2. Right radial A-line 05/26, right subclavian central line Dispo: This patient remains critically ill with one or more organ systems which are or may become a threat to life. I have spent in excess of 60 minutes discontinuously in the care and management of this patient. This time is exclusive of procedures, and includes, but is not limited to, evaluation of the patient, review of the medical record, discussions with family, consultants, nursing staff, or respiratory therapy, and documentation in the medical record. Code Status Full Discussed Condition With Dr Michael Soares, Mrs Gutierrez, and [employer] at bedside Problem Qualifiers (1) Bowel obstruction: Qualified Codes: K56.699 - Other intestinal obstruction unspecified as to partial versus complete obstruction (2) Sepsis: Qualified Codes: A41.9 - Sepsis, unspecified organism Chioma Chery MD May 26, 2017 15:03
[2017-05-26] MEDS ORDERED: ACETAMINOPHEN 1000 MG/100 ML 100 ML IV PRN (15:15)
[2017-05-26] MEDS: NOREPINEPHRINE INJ 4 MG in SODIUM CHLOR 0.9% 250 ML INJ 246 ML IV PRN (15:35)
[2017-05-26 16:07] LABS: INDIRECT BILIRUBIN 0.2 MG/DL (0.0-0.8); TOTAL BILIRUBIN ADULT 0.3 MG/DL (0.2-1.0)
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
[2017-05-26] MEDS: GABAPENTIN 100 MG CAP PO SCH (18:51)
[2017-05-26] MEDS: FAMOTIDINE 20 MG/2 ML VIAL IV PUSH SCH (18:53)
[2017-05-26] MEDS: PIPERACIL-TAZO 2.25 GM PREMIX 50 ML IV SCH ×2 (18:59→23:00)
--- NOTE | 2017-05-26 20:06 | EKG ---
Date Performed: 05/25/2017 Time Performed: 15:24:06 PTAGE: 66 years EKG: Sinus rhythm POSSIBLE LEFT ATRIAL ENLARGEMENT RIGHT BUNDLE BRANCH BLOCK POSSIBLE LEFT VENTRICULAR HYPERTROPHY PRO BABLE ANTERIOR MYOCARDIAL INFARCTION INFERIOR MYOCARDIAL INFARCTION Compared to prior tracing no sign ificant change ABNORMAL ECG PREVIOUS TRACING : 12/19/2016 19.57 DOCTOR: Julee Yen Interpretating Date/Time 05/26/2017 20:05:24
[2017-05-26] MEDS: DONEPEZIL HCL 5 MG TAB PO SCH (20:19)
[2017-05-26] MEDS ORDERED: SODIUM CHLORIDE 0.9% FLUSH 10 ML FLUSH IV FLUSH SCH (21:00)
--- NOTE | 2017-05-26 21:07 | EKG ---
Date Performed: 05/26/2017 Time Performed: 16:35:08 PTAGE: 66 years EKG: Sinus rhythm LEFT ATRIAL ENLARGEMENT RIGHT VENTRICULAR CONDUCTION DELAY LEFT VENTRICULAR HYPERTROPHY AND ST-T CHRISTINA NGE EXTENSIVE ST-T CHANGES INFERIOR MYOCARDIAL INFARCTION , PROBABLY OLD WITH POSTERIOR EXTENSION ABN ORMAL ECG PREVIOUS TRACING : 05/25/2017 15.24 Compared to the previous tracing ST-T changes more prominen t DOCTOR: Lynda Nieves Interpretating Date/Time 05/26/2017 21:06:17
--- NOTE | 2017-05-26 21:41 | MB ---
cc: PENNIE YA DATE OF CONSULTATION 05/26/2017 CHIEF COMPLAINT Right foot ulceration. HISTORY OF THE PRESENT ILLNESS Mr. Gutierrez is a 66-year-old male patient who presented to the emergency department due to sudden onset of abdominal pain, nausea, vomiting. My consult is being placed for a right heel ulceration. The patient is intubated and most information was obtained from the chart. He does not appear to have any pain to the wound site after moving bandages. PAST MEDICAL HISTORY Medical history includes: 1. Type 1 diabetes. 2. Diabetic ulcer surgery. 3. Heart block. 4. Chronic obstructive pulmonary disease. 5. Atrial fibrillation. 6. Hypertension. 7. History of C. Difficile. 8. History of right leg fracture. PAST SURGICAL HISTORY Includes: 1. Right knee surgery. 2. Pacemaker. 3. . ALLERGIES NO KNOWN DRUG ALLERGIES. MEDICATIONS Please see list. SOCIAL HISTORY Unknown. FAMILY HISTORY Noncontributory. Vital signs, temperature is 98.0 with a T-max 99.0. Respiratory rate of 20, blood pressure 122/38, pulse ox was 100% on nasal cannula at 3 liters. LABORATORY DATA White count is 20.2, hemoglobin 10.6, hematocrit 33.6, platelets 330. Chemistry, sodium of 138, potassium 5.2, chloride 102, carbon dioxide 18.5. BUN 63. Random glucose 208. INR 1.2. Blood cultures negative x1 day. Urine cultures are pending. Foot x-rays are negative for any gas in the soft tissue or signs of osseous cortical interruption but there is a noted spiral fracture to the distal aspect of the fifth metatarsal on the right foot in good alignment. PHYSICAL EXAMINATION On physical exam the patient has nonpalpable DP and PT pulses. Feet are cool to touch. Cap refill time less than 3 seconds. Unable to assess gross sensation. No edema or signs of trauma. Right medial foot medial heel ulceration is 0.8 cm x 0.8 cm x 0.2 cm with a fibrotic base with mild serous drainage. No erythema, no deep probing. No signs of infection. ASSESSMENT/PLAN 1. Stage II ulceration right heel, noninfected. - Wound care orders provided for nursing staff. - When the patient is ambulating he should be in a cam boot but at this he is intubated. Time for ambulation is unknown. - Please reconsult if or when the patient's condition changes for further suggested orders. Thank you for allowing me to be involved in this patient's care. Pennie BALDWIN /8:45 PM /9:20 PM YURIDIA
[2017-05-27] VITALS (10 sets, daily range): BP systolic 118–144; BP diastolic 36–59; PULSE 68–90; RESP 19–25; TEMP 97.8–98.6; O2SAT 93–100
[2017-05-27] MEDS: INSULIN ASPART SUPPLEMENTAL SCALE SQ SCH ×5 (00:30→21:00)
[2017-05-27] MEDS: NOREPINEPHRINE INJ 4 MG in SODIUM CHLOR 0.9% 250 ML INJ 246 ML IV PRN ×2 (01:35→17:16)
[2017-05-27] MEDS: SODIUM CHLOR 0.9% 1000 ML INJ 1,000 ML IV SCH ×3 (03:00→19:00)
[2017-05-27] MEDS: FAMOTIDINE 20 MG/2 ML VIAL IV PUSH SCH ×2 (04:00→17:16)
[2017-05-27] MEDS: metroNIDAZOLE 500 MG INJ 100 ML IV SCH ×3 (05:00→17:17)
[2017-05-27] MEDS: PIPERACIL-TAZO 2.25 GM PREMIX 50 ML IV SCH ×2 (05:00→10:15)
[2017-05-27] MEDS: HEPARIN SODIUM - SQ 10,000 UNITS/ML VIAL SQ SCH ×2 (05:38→17:18)
[2017-05-27 06:01] LABS: AUTOMATED NEUTROPHIL # 15.9 TH/MM3 (1.8-7.7); BASOPHIL % 0.1 % (0.0-2.0); HEMATOCRIT 33.2 % (39.0-51.0); LYMPH % 6.6 % (9.0-44.0); LYMPHOCYTE # 1.2 TH/MM3 (1.0-4.8); MEAN CELL VOLUME 89.8 FL (80.0-100.0); MEAN CORPUSCULAR HEMOGLOBIN 28.4 PG (27.0-34.0); MEAN CORPUSCULAR HGB CONC 31.6 % (32.0-36.0); MONO % 3.8 % (0.0-8.0); NEUT % 89.5 % (16.0-70.0); PLATELET COUNT 348 TH/MM3 (150-450); WHITE BLOOD COUNT 17.8 TH/MM3 (4.0-11.0)
[2017-05-27 06:04] LABS: HEMO FLAGS AUTO DIFF
--- NOTE | 2017-05-27 06:17 | RADRPT ---
EXAM DATE/TIME: 05/27/2017 05:19 [facility] COMPARISON: CHEST SINGLE AP, May 26, 2017, 13:53. INDICATIONS : Shortness of breath. MEDICAL HISTORY : Chronic obstructive pulmonary disease. SURGICAL HISTORY : Pacemaker. ENCOUNTER: Subsequent ACUITY: 3 days PAIN SCORE: Non-responsive. LOCATION: Bilateral chest FINDINGS: Pacemaker device is noted with control pack over the left chest. Right subclavian central line is sta ble in good position. Nasogastric tube descends to the stomach. There is developing alveolar disease in the left lower lung zones. Right lung is grossly clear. Cardiac contours are stable. CONCLUSION: Developing left lung infiltrates. Forrest Green MD on May 27, 2017 at 6:15 Board Certified Radiologist. This report was verified electronically.
[2017-05-27 06:48] LABS: CALCIUM-PROTEIN CORRECTED 7.7 MG/DL (8.5-10.1); MAGNESIUM 2.4 MG/DL (1.5-2.5)
[2017-05-27 06:49] LABS: TOTAL BILIRUBIN ADULT 0.3 MG/DL (0.2-1.0)
[2017-05-27 06:50] LABS: BICARBONATE 15.9 MEQ/L (21.0-32.0); POTASSIUM 3.2 MEQ/L (3.5-5.1)
[2017-05-27 08:35] LABS: BANDS 57 % (0-6); PLATELET ESTIMATE SMEAR NORMAL (NORMAL); PLATELET MORPHOLOGY NORMAL (NORMAL); POLYS (SEG NEUTROPHILS) 33 % (16-70); SCAN/DIFF FINAL DIFF MANUAL; WBC DIFF SAMPLE 100
[2017-05-27] MEDS: COLLAGENASE OINT 30 GM TUBE TOPICAL SCH (09:00)
[2017-05-27] MEDS: SODIUM CHLORIDE 0.9% FLUSH 10 ML FLUSH IV FLUSH SCH ×2 (09:00→20:54)
[2017-05-27] MEDS: VANCOMYCIN 500 MG VIAL (FOR ORAL USE ONLY) PO SCH ×4 (09:00→20:54)
[2017-05-27] MEDS: FLUoxetine HCL 20 MG CAP PO SCH (10:11)
[2017-05-27] MEDS: GABAPENTIN 100 MG CAP PO SCH ×3 (10:14→17:17)
--- NOTE | 2017-05-27 10:55 | HHI.IDPN ---
Subjective Subjective Remarks Patient is a 66-year-old male, presented to the hospital complaining of sudden onset of abdominal pain, nausea and vomiting. His vomiting apparently had a feculent smell. There was mention that he has not had a bowel movement for about 2-3 days. On presentation his WBC was up to 20,000. His lactic acid is elevated. CT of the abdomen and pelvis with IV contrast, but no oral contrast showing possible obstruction. Since admission patient has had significant volume of liquid stool. He was transferred to the ICU for hypotension and closer monitoring. He has not been febrile. He still complaining of abdominal pain. Patient is not a good historian. Got history from the patient's , as well as from old records. Patient was apparently in the hospital in [place] back in January 2017. At that time he had diarrhea, and workup showed evidence of colitis on the left side of his colon. There was no evidence of ischemic colitis by CTA, no IBD. During that hospitalization he also had atrial fibrillation with RVR, and required cardioversion. Infectious disease consultation has been requested to evaluate the patient. Notes reviewed Temps ok Has a lot of stool output NGT currently clamped Abdominal pain is better C diff toxin (+) Creatinine worse Has worsening acidosis Antibiotics I attest that I obtained, updated or reviewed the home and current medications. IV Zosyn PO Vancomycin IV Flagyl Current Medications Medications (Trade) Dose Ordered Sig/Tricia Route Start Time Stop Time Status Last Admin (NS Flush) 2 ml UNSCH PRN IV FLUSH 05/25/17 17:45 (NS Flush) 2 ml BID IV FLUSH 05/25/17 21:00 05/27/17 09:00 (Zofran Inj) 4 mg Q6H PRN IVP 05/25/17 17:45 05/26/17 00:08 (Heparin Inj) 5,000 units Q12H SQ 05/25/17 18:00 05/27/17 05:38 (Narcan Inj) 0.4 mg UNSCH PRN IV PUSH 05/25/17 17:45 (Milk Of Magnesia Liq) 30 ml Q12H PRN PO 05/25/17 17:45 (Senokot) 17.2 mg Q12H PRN PO 05/25/17 17:45 (Dulcolax Supp) 10 mg DAILY PRN RECTAL 05/25/17 17:45 (Lactulose Liq) 30 ml DAILY PRN PO 05/25/17 17:45 (Coreg) 3.125 mg BID PO 05/26/17 09:00 Future Hold (Aricept) 5 mg HS PO 05/26/17 21:00 05/26/17 20:19 (PROzac) 40 mg DAILY PO 05/26/17 09:00 05/27/17 10:11 (D50w (Vial) Inj) 50 ml UNSCH PRN IV PUSH 05/25/17 23:00 (Glucagon Inj) 1 mg UNSCH PRN OTHER 05/25/17 23:00 (NovoLOG SUPPLEMENTAL SCALE) 1 ACHS SLIDING SCALE SQ 05/26/17 08:00 05/27/17 00:30 Sodium Chloride 1,000 ml @ 125 mls/hr Q8H IV 05/26/17 11:00 05/27/17 10:15 Metronidazole 100 ml @ 100 mls/hr Q8H IV 05/26/17 13:00 05/26/17 20:19 (VANCOMYCIN for oral use only) 250 mg QID PO 05/26/17 13:00 05/26/17 20:18 (Duoneb Neb) 1 ampule Q4HR NEB PRN INH 05/26/17 11:45 Phenylephrine HCl 40 mg/Dextrose 500 ml @ 30 mls/hr TITRATE PRN IV 05/26/17 13:00 05/26/17 12:45 Piperacillin Sod/ Tazobactam Sod 50 ml @ 100 mls/hr Q6H IV 05/26/17 17:00 05/26/17 18:59 (Brethine Inj) 1 mg UNSCH PRN SQ 05/26/17 14:30 Norepinephrine Bitartrate 4 mg/ Sodium Chloride 250 ml @ 7.5 mls/hr TITRATE PRN IV 05/26/17 15:00 05/27/17 01:35 Acetaminophen 100 ml @ 400 mls/hr Q6H PRN IV 05/26/17 15:15 05/27/17 15:15 (Pepcid Inj) 20 mg Q12H IV PUSH 05/26/17 16:00 05/27/17 04:00 (Neurontin) 100 mg TID PO 05/26/17 18:00 05/27/17 10:14 (Santyl Oint) 1 applic DAILY TOPICAL 05/27/17 09:00 Lines RSC TLC Past Medical History 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 difficile colitis RLE fracture, required a cast Past Surgical History R knee surgery CT for PTX Allergies: Coded Allergies: No Known Allergies (Unverified Adverse Reaction, Unknown, 05/25/17) Objective . Vital Signs Date Time Temp Pulse Resp B/P (MAP) Pulse Ox O2 Delivery O2 Flow Rate FiO2 05/27/17 04:00 98.3 75 20 126/36 (66) 98 05/27/17 01:35 85 122/38 05/27/17 00:00 98.6 85 20 122/58 (79) 100 05/26/17 23:00 89 05/26/17 20:00 98.5 82 20 118/38 (64) 100 05/26/17 19:46 100 Nasal Cannula 3.00 05/26/17 18:00 84 05/26/17 18:00 80 120/34 05/26/17 17:30 85 114/40 05/26/17 17:00 81 101/37 05/26/17 16:15 81 110/37 05/26/17 16:15 81 110/37 05/26/17 16:00 98.0 78 26 122/38 (66) 100 05/26/17 16:00 78 122/38 05/26/17 16:00 78 122/38 05/26/17 16:00 78 05/26/17 15:45 76 124/36 05/26/17 15:45 76 124/36 05/26/17 15:35 82 128/41 05/26/17 15:35 82 128/42 05/26/17 15:05 96 Nasal Cannula 3.00 05/26/17 14:00 82 05/26/17 14:00 82 116/36 05/26/17 13:00 85 117/37 05/26/17 12:45 96 75/46 05/26/17 12:15 96 05/26/17 12:15 99.0 96 28 80/48 (59) 97 . Laboratory Tests Test 05/25/17 14:30 05/26/17 06:20 05/26/17 14:00 05/27/17 05:25 White Blood Count 20.1 TH/MM3 17.2 TH/MM3 20.2 TH/MM3 17.8 TH/MM3 Red Blood Count 4.91 MIL/MM3 4.45 MIL/MM3 3.74 MIL/MM3 3.70 MIL/MM3 Hemoglobin 14.1 GM/DL 12.9 GM/DL 10.9 GM/DL 10.5 GM/DL Hematocrit 44.3 % 40.2 % 33.6 % 33.2 % Mean Corpuscular Volume 90.2 FL 90.3 FL 89.7 FL 89.8 FL Mean Corpuscular Hemoglobin 28.8 PG 29.0 PG 29.0 PG 28.4 PG Mean Corpuscular Hemoglobin Concent 31.9 % 32.1 % 32.4 % 31.6 % Red Cell Distribution Width 16.5 % 16.8 % 16.2 % 16.0 % Platelet Count 478 TH/MM3 346 TH/MM3 330 TH/MM3 348 TH/MM3 Mean Platelet Volume 7.8 FL 8.7 FL 8.2 FL 8.0 FL Neutrophils (%) (Auto) 82.3 % 83.9 % 91.8 % 89.5 % Lymphocytes (%) (Auto) 10.4 % 9.6 % 5.5 % 6.6 % Monocytes (%) (Auto) 7.0 % 6.4 % 2.6 % 3.8 % Eosinophils (%) (Auto) 0.1 % 0.0 % 0.0 % 0.0 % Basophils (%) (Auto) 0.2 % 0.1 % 0.1 % 0.1 % Neutrophils # (Auto) 16.6 TH/MM3 14.4 TH/MM3 18.5 TH/MM3 15.9 TH/MM3 Lymphocytes # (Auto) 2.1 TH/MM3 1.7 TH/MM3 1.1 TH/MM3 1.2 TH/MM3 Monocytes # (Auto) 1.4 TH/MM3 1.1 TH/MM3 0.5 TH/MM3 0.7 TH/MM3 Eosinophils # (Auto) 0.0 TH/MM3 0.0 TH/MM3 0.0 TH/MM3 0.0 TH/MM3 Basophils # (Auto) 0.0 TH/MM3 0.0 TH/MM3 0.0 TH/MM3 0.0 TH/MM3 CBC Comment DIFF FINAL DIFF FINAL DIFF FINAL AUTO DIFF Differential Comment FINAL DIFF MANUAL Hematology Comments Differential Total Cells Counted 100 Neutrophils % (Manual) 33 % Band Neutrophils % 57 % Lymphocytes % 6 % Monocytes % 4 % Neutrophils # (Manual) 16.0 TH/MM3 Platelet Estimate NORMAL Platelet Morphology Comment NORMAL Red Cell Morphology Comment NORMAL Laboratory Tests Test 05/25/17 14:30 05/25/17 19:00 05/26/17 06:20 05/26/17 14:00 Blood Urea Nitrogen 39 MG/DL 63 MG/DL Creatinine 1.57 MG/DL 2.28 MG/DL Random Glucose 236 MG/DL 208 MG/DL Total Protein 7.4 GM/DL 5.3 GM/DL 4.9 GM/DL Albumin 2.8 GM/DL 2.1 GM/DL 1.6 GM/DL Calcium Level 9.2 MG/DL 7.1 MG/DL Phosphorus Level 5.7 MG/DL Magnesium Level 2.6 MG/DL Alkaline Phosphatase 117 U/L 124 U/L 109 U/L Aspartate Amino Transf (AST/SGOT) 23 U/L 27 U/L 20 U/L Alanine Aminotransferase (ALT/SGPT) 19 U/L 15 U/L 11 U/L Total Bilirubin 0.5 MG/DL 0.4 MG/DL 0.3 MG/DL Sodium Level 132 MEQ/L 138 MEQ/L Potassium Level 4.9 MEQ/L 5.2 MEQ/L Chloride Level 94 MEQ/L 102 MEQ/L Carbon Dioxide Level 28.8 MEQ/L 18.5 MEQ/L Anion Gap 9 MEQ/L 18 MEQ/L Estimat Glomerular Filtration Rate 44 ML/MIN 29 ML/MIN Serum Osmolality 305 MOSM/KG Lactic Acid Level 4.2 mmol/L 3.3 mmol/L 1.7 mmol/L Troponin I LESS THAN 0.02 NG/ML Lipase 47 U/L Protein Corrected Calcium 8.1 MG/DL Direct Bilirubin 0.1 MG/DL Indirect Bilirubin 0.2 MG/DL Lactate Dehydrogenase 182 U/L Procalcitonin 41.11 ng/mL Test 05/26/17 22:30 05/27/17 05:25 Lactic Acid Level 1.2 mmol/L 1.1 mmol/L Blood Urea Nitrogen 81 MG/DL Creatinine 3.53 MG/DL Random Glucose 251 MG/DL Total Protein 5.0 GM/DL Albumin 1.5 GM/DL Calcium Level 6.6 MG/DL Phosphorus Level 9.3 MG/DL Magnesium Level 2.4 MG/DL Alkaline Phosphatase 91 U/L Aspartate Amino Transf (AST/SGOT) 18 U/L Alanine Aminotransferase (ALT/SGPT) 12 U/L Total Bilirubin 0.3 MG/DL Sodium Level 143 MEQ/L Potassium Level 3.2 MEQ/L Chloride Level 110 MEQ/L Carbon Dioxide Level 15.9 MEQ/L Anion Gap 17 MEQ/L Estimat Glomerular Filtration Rate 17 ML/MIN Protein Corrected Calcium 7.7 MG/DL Carcinoembryonic Antigen 3.0 NG/ML CA 19-9 Antigen 28.3 U/ML Microbiology Date/Time Source Procedure Growth Status 05/25/17 14:30 Blood Peripheral Aerobic Blood Culture - Preliminary NO GROWTH IN 1 DAY Resulted 05/25/17 14:30 Blood Peripheral Anaerobic Blood Culture - Preliminary NO GROWTH IN 1 DAY Resulted 05/25/17 14:25 Blood Peripheral Aerobic Blood Culture - Preliminary NO GROWTH IN 1 DAY Resulted 05/25/17 14:25 Anaerobic Blood Culture - Preliminary Gram Negative Rafita Resulted 05/26/17 15:10 Urine Catheterized Urine Urine Culture Pending Received Imaging RADIOLOGY STUDIES/FILMS REVIEWED Abdomen/Pelvis CT 05/25/17 1428 Signed Impressions: Service Date/Time: Thursday, May 25, 2017 16:29 - CONCLUSION: 1. Severe small bowel and colonic distention to the level of the splenic flexure where there is a sharp transition zone. Obstructing neoplasm is not excluded. Willi Muñoz MD Foot X-Ray 05/25/17 1401 Signed Impressions: Service Date/Time: Thursday, May 25, 2017 15:01 - CONCLUSION: Spiral fracture fifth metatarsal. Delfin Mittal MD FACR Chest X-Ray 05/25/17 1401 Signed Impressions: Service Date/Time: Thursday, May 25, 2017 14:59 - CONCLUSION: Moderate hyperinflation with pacer otherwise negative. Delfin Mittal MD FACR Physical Exam GENERAL: Awake and alert, not in respiratory distress. SKIN: Cool and dry. No generalized rash, no ecchymoses and no evidence of embolic lesions. HEAD: Atraumatic. Normocephalic. No temporal wasting, or tenderness. EYES: [place] conjunctiva. No petechia or hemorrhage. Pupils equal, round and reactive to light. Extraocular movements full and intact. No scleral icterus. No injection or drainage. EARS, NOSE AND THROAT: Nose without bleeding or purulent nasal discharge. No sinus tenderness. Mucous membranes pink and moist. Poor dentition. No oral thrush. NECK: Trachea midline. Supple and not tender, no meningeal signs CARDIOVASCULAR: Regular rate and rhythm. No murmurs, rubs or gallops heard. Pacer in L upper chest, with no evidence of infection RESPIRATORY: Clear to auscultation. Breath sounds equal bilaterally. No rales , wheezing or rhonchi. Decreased at bases ABDOMEN: Soft, mildly distended, with diffuse tenderness, in lower quadrants, more on R than on L. Bowel sounds present and hypoactive, no guarding. No rebound. No organomegaly. EXTREMITIES: No clubbing, cyanosis, or edema. No joint effusion, has good ROM. No calf tenderness. Well perfused and warm. A small ulcer in R medial heel, with no evidence of infection NEUROLOGICAL: Awake and alert Cranial nerves grossly intact. Motor grossly within normal limits. PSYCHIATRIC: Normal affect, calm and cooperative. LINE: No evidence of infection Has stool collection bag, leaking around, has liquid stool, green with a lot of mucus Assessment & Plan Remarks IMPRESSION Sepsis on presentationk, now with shock, has N/V and diarrhea - ?Recurrent C diff colitis, ?ischemic bowel (previous CTA ok per records, ?due to low flow state from hypotension) ?Bowel obstruction, last colonoscopy no mention of colon mass Prob with CKD, with worsening due to hypotension RECOMMENDATION Continue empiric C diff Rx : IV Flagyl and po Vancomycin Stop Zosyn Follow C/S Monitor progress Smiley Medina MD May 27, 2017 10:55
[2017-05-27] MEDS ORDERED: LIDOCAINE HCL 1% PF 5 ML AMPULE OTHER ONE (12:00)
[2017-05-27] MEDS ORDERED: PROPOFOL 200 MG/20 ML AMP IV ONE (12:00)
--- NOTE | 2017-05-27 13:20 | HHI.PR ---
Subjective Subjective Notes Resting in bed States colonoscopy was postponed until later this afternoon Objective Vitals/I&O Vital Signs Date Time Temp Pulse Resp B/P (MAP) Pulse Ox O2 Delivery O2 Flow Rate FiO2 05/27/17 04:00 98.3 75 20 126/36 (66) 98 05/26/17 19:46 Nasal Cannula 3.00 Labs Laboratory Tests Test 05/26/17 14:00 05/26/17 14:15 05/26/17 15:10 05/26/17 22:30 White Blood Count 20.2 Red Blood Count 3.74 Hemoglobin 10.9 Hematocrit 33.6 Mean Corpuscular Volume 89.7 Mean Corpuscular Hemoglobin 29.0 Mean Corpuscular Hemoglobin Concent 32.4 Red Cell Distribution Width 16.2 Platelet Count 330 Mean Platelet Volume 8.2 Neutrophils (%) (Auto) 91.8 Lymphocytes (%) (Auto) 5.5 Monocytes (%) (Auto) 2.6 Eosinophils (%) (Auto) 0.0 Basophils (%) (Auto) 0.1 Neutrophils # (Auto) 18.5 Lymphocytes # (Auto) 1.1 Monocytes # (Auto) 0.5 Eosinophils # (Auto) 0.0 Basophils # (Auto) 0.0 CBC Comment DIFF FINAL Differential Comment Prothrombin Time 12.9 Prothromb Time International Ratio 1.2 Lactic Acid Level 1.7 1.2 Total Bilirubin 0.3 Direct Bilirubin 0.1 Indirect Bilirubin 0.2 Aspartate Amino Transf (AST/SGOT) 20 Alanine Aminotransferase (ALT/SGPT) 11 Alkaline Phosphatase 109 Lactate Dehydrogenase 182 Total Protein 4.9 Albumin 1.6 Procalcitonin 41.11 B-Hydroxybutyrate 0.90 Blood Gas Puncture Site ART LINE Blood Gas Patient Temperature 98.6 Blood Gas HCO3 17 Blood Gas Base Excess -7.8 Blood Gas Oxygen Saturation 93 Arterial Blood pH 7.37 Arterial Blood Partial Pressure CO2 29 Arterial Blood Partial Pressure O2 93 Arterial Blood Oxygen Content 14.7 Arterial Blood Carboxyhemoglobin 0.9 Arterial Blood Methemoglobin 1.9 Blood Gas Hemoglobin 11.2 Oxygen Delivery Device NASAL CANNULA Blood Gas Liter Flow 2.5 Nasal Screen MRSA (PCR) MRSA NOT DETECTED Test 05/27/17 05:25 White Blood Count 17.8 Red Blood Count 3.70 Hemoglobin 10.5 Hematocrit 33.2 Mean Corpuscular Volume 89.8 Mean Corpuscular Hemoglobin 28.4 Mean Corpuscular Hemoglobin Concent 31.6 Red Cell Distribution Width 16.0 Platelet Count 348 Mean Platelet Volume 8.0 Neutrophils (%) (Auto) 89.5 Lymphocytes (%) (Auto) 6.6 Monocytes (%) (Auto) 3.8 Eosinophils (%) (Auto) 0.0 Basophils (%) (Auto) 0.1 Neutrophils # (Auto) 15.9 Lymphocytes # (Auto) 1.2 Monocytes # (Auto) 0.7 Eosinophils # (Auto) 0.0 Basophils # (Auto) 0.0 CBC Comment AUTO DIFF Differential Total Cells Counted 100 Neutrophils % (Manual) 33 Band Neutrophils % 57 Lymphocytes % 6 Monocytes % 4 Neutrophils # (Manual) 16.0 Differential Comment FINAL DIFF MANUAL Platelet Estimate NORMAL Platelet Morphology Comment NORMAL Red Cell Morphology Comment NORMAL Blood Urea Nitrogen 81 Creatinine 3.53 Random Glucose 251 Total Protein 5.0 Albumin 1.5 Calcium Level 6.6 Phosphorus Level 9.3 Magnesium Level 2.4 Alkaline Phosphatase 91 Aspartate Amino Transf (AST/SGOT) 18 Alanine Aminotransferase (ALT/SGPT) 12 Total Bilirubin 0.3 Sodium Level 143 Potassium Level 3.2 Chloride Level 110 Carbon Dioxide Level 15.9 Anion Gap 17 Estimat Glomerular Filtration Rate 17 Lactic Acid Level 1.1 Protein Corrected Calcium 7.7 Carcinoembryonic Antigen 3.0 CA 19-9 Antigen 28.3 Date/Time Source Procedure Growth Status 05/25/17 14:30 Blood Peripheral Aerobic Blood Culture - Preliminary NO GROWTH IN 2 DAYS Resulted 05/25/17 14:30 Blood Peripheral Anaerobic Blood Culture - Preliminary NO GROWTH IN 2 DAYS Resulted 05/26/17 15:10 Urine Catheterized Urine Urine Culture Pending Received Cardiovascular: Regular Lungs: Clear Abdomen: Non-distended, Other (RLQ tenderness with palpation ) Extremities: No edema A/P Assessment and Plan 66 year old male with diarrhea; diffuse abdominal distention---? neoplastic mass -NPO -NGT to LIWS -WBC trending down -CCM following -GI following ---planning for colonoscopy today -ID following---- + c-diff Attending Statement patient seen at bedside pt still with pain but appears to be improving await gi colonoscopy today Attestation The exam, history, and the medical decision-making described in the above note were completed with the assistance of the mid-level provider. I reviewed and agree with the findings presented. I attest that I had a [id number] encounter with the patient on the same day, and personally performed and documented my assessment and findings in the medical record. Marianne Torres May 27, 2017 13:20 Michael Soares MD May 30, 2017 04:27
--- NOTE | 2017-05-27 14:05 | HHI.CCPN ---
Subjective Remarks/Hospital Course This is a a 66 year old male with a history of diabetes mellitus type 1, diabetic ulcer, 3rd degree heart block S/p pacemaker placement that presented to the emergency department on 05/25/2017 due to sudden onset of abdominal pain , nausea and vomiting. He has not had a bowel movement in 3 days. On arrival, patient has leukocytosis with WBC count 20.1K, lactic acid 4.7. CT abdomen pelvis shows small bowel and colonic distention with transition point at the splenic flexure. CT abdomen and pelvis also indicated possibility of neoplasm causing obstruction. Patient denies any headache, chest pain, cough, shortness of breath. denies any Dysuria and hematuria. Of note, patient has lost 20-30 lbs in the recent months. The patient was admitted to the medical floor, throughout the night the patient condition deteriorated became hemodynamically unstable, systolic blood pressures in the 80s. Critical care medicine was consulted. The patient was transferred to the [facility], upon presentation the patient was noted to have a blood pressure 79/50, HR 90's the patient was bolused 2 L of normal saline IV fluid right regarding A-line was placed the patient was placed on low dose phenylephrine infusion 20 mcgs. Consent was obtained and a right subclavian central line was placed the patient received a third liter IV fluids labs are pending at this time. Of note patient previously at [facility] in [place] when noted to have biopsies records not obtained at this time reveals abnormal pathology unknown. CEA levels pending. 05/27: Requires FMS for corrosive diarrhea. Plan for colonoscopy today; looking specifically for tumor at splenic flexure. Renal function continues to deteriorate. Objective Vital Signs Date Time Temp Pulse Resp B/P (MAP) Pulse Ox O2 Delivery O2 Flow Rate FiO2 05/27/17 04:00 98.3 75 20 126/36 (66) 98 05/26/17 19:46 Nasal Cannula 3.00 Intake and Output 05/27/17 05/27/17 05/28/17 08:00 16:00 00:00 Intake Total 3950 ml Output Total 1050 ml Balance 2900 ml Result Diagram: 05/27/17 0525 05/27/1725 Other Results Laboratory Tests Test 05/26/17 14:15 Blood Gas Puncture Site ART LINE Blood Gas Patient Temperature 98.6 Blood Gas HCO3 17 mmol/L (22-26) Blood Gas Base Excess -7.8 mmol/L (-2-2) Blood Gas Oxygen Saturation 93 % (90-100) Arterial Blood pH 7.37 (7.380-7.420) Arterial Blood Partial Pressure CO2 29 mmHg (38-42) Arterial Blood Partial Pressure O2 93 mmHg (61-120) Arterial Blood Oxygen Content 14.7 Vol % (12.0-20.0) Arterial Blood Carboxyhemoglobin 0.9 % (0-4) Arterial Blood Methemoglobin 1.9 % (0-2) Blood Gas Hemoglobin 11.2 G/DL (12.0-16.0) Oxygen Delivery Device NASAL CANNULA Blood Gas Liter Flow 2.5 L/M Imaging Last Impressions Abdomen/Pelvis CT 05/25/17 1428 Signed Impressions: Service Date/Time: Thursday, May 25, 2017 16:29 - CONCLUSION: 1. Severe small bowel and colonic distention to the level of the splenic flexure where there is a sharp transition zone. Obstructing neoplasm is not excluded. Willi Muñoz MD Foot X-Ray 05/25/17 1401 Signed Impressions: Service Date/Time: Thursday, May 25, 2017 15:01 - CONCLUSION: Spiral fracture fifth metatarsal. Delfin Mittal MD FACR Chest X-Ray 05/25/17 1401 Signed Impressions: Service Date/Time: Thursday, May 25, 2017 14:59 - CONCLUSION: Moderate hyperinflation with pacer otherwise negative. Delfin Mittal MD FACR Objective Remarks GENERAL: Emaciated critically ill-appearing gentleman alert and oriented SKIN: Warm and dry. Poor skin turgor HEAD: Atraumatic. Normocephalic. EYES: Pupils equal and round. No scleral icterus. No injection or drainage. ENT: No nasal bleeding or discharge. Mucous membranes dry NECK: Trachea midline. Airway patent, unobstructed. CARDIOVASCULAR: Normal rate, regular rhythm. No JVD. RESPIRATORY: No accessory muscle use. Clear to auscultation. Breath sounds equal bilaterally. GASTROINTESTINAL: Abdomen soft, non-tender, nondistended. No guarding. MUSCULOSKELETAL: Extremities without clubbing, cyanosis, or edema. No obvious deformities. NEUROLOGICAL: Awake and alert. RASS 0. No gross focal/sensory deficits. Follows commands in all 4 extremities. A/P Assessment and Plan Assessment This is a 66-year-old male patient with a history of C. difficile colitis, fungal esophagitis, duodenal ulcer, erosive gastritis previously hospitalized , now presenting with most likely septic shock secondary to C. difficile colitis versus ischemic bowel from small bowel obstruction. Admit to ICU. Assessment: C. difficile colitis Possible Small bowel obstruction Anion gap metabolic acidosis Hypertension Diabetes mellitus Acute on chronic kidney injury Dehydration H/O PA Cardiomyopathy Tonic systolic congestive heart failure History of third-degree block status post pacemaker insertion H/O Afib RVR (03/12) Cardioverted Dementia mild Diabetic peripheral neuropathy History of tobacco abuse History of alcohol abuse Dyslipidemia Plan Plan by systems: Neurologic: Neurochecks per ICU protocol Avoid sedative type medications Ofirmev IV every 6 hours when necessary Patient previously 14 shots of liquor per week, per old medical records (02/2017 ) 2 shots of Rum/day Monitor for signs of alcohol withdrawal Seizure precautions Continue donepezil 5 mg q hs, continue gabapentin Fluoxetine 40 mg /day Respiratory: Maintain O2 sat greater than 92% Bronchodilators every 4 hours when necessary for wheezing Currently O2 at 2 L nasal cannula Obtain ABG 7.37/29/92/16.5/-7.8 H/O smoking 50 pack years. Counseled on smoking cessation Cardiovascular: Maintain MAP greater than 65mmHg Begin Levophed and Phenylephrine infusions to maintain MAP F/U Pacemaker interrogation Discontinue lisinopril BLAZE inhibitor in the setting of acute kidney injury Hold carvedilol 3.125 BID secondary to hypotension ASA 81mg placed on hold for now Monitor CVP Echo from previous hospital 02/27/17 EF 53% (Previously 30%) Renal: Patient bolused x 3 liters Insert selby -- Strict I/Os - Generally edematous FEN/GI: Monitor electrolytes and replete Replete calcium 2GM calcium gluconate Normal Saline 125 cc/hour Patient previously on atorvastatin Obtain LFTs Heme/ID: Obtain blood, urine cultures Obtain serial lactate levels F/U LDH Obtain Procalcitonin level ID following Dr. Medina-IV Flagyl, by mouth Vanco 250mg QID F/U CEA levels Previously hospitalized 03/12/17 C. difficile colitis Endocrine: Glucose monitoring per ICU protocol medium dose regimen DC Levemir -- SSI Prophylaxis: GI Prophylaxis Protonix will change to famotidine in the setting of chronic kidney disease DVT Prophylaxis -- SCDs Heparin Lines: Peripheral IVs 2. Right radial A-line 05/26, right subclavian central line Overall impression: Patient remains critically ill with severe colitis and obstructive bowel pattern. Renal function is deteriorating quickly. Critical care 43 mins Michael Cornelius MD May 27, 2017 14:05
--- NOTE | 2017-05-27 14:49 | GIPROC ---
[facility] [address] [facility]. [facility], [id number] COLONOSCOPY PROCEDURE REPORT EXAM DATE: 05/27/2017 PATIENT NAME: Aristides Gutierrez MR #: [id number] BIRTHDATE: 1950 ENDOSCOPIST: Chloe Perry MD ORDER #: [id number] WEIGHT AND TEST BAR CLERK: Delroy Brito and Candice Lee STATUS: inpatient INDICATIONS: The patient is a 66 yr old male here for a colonoscopy due to ABNORMAL CT, COLITIS PROCEDURE PERFORMED: Colonoscopy, diagnostic MEDICATIONS: None and Per Anesthesia. PREP QUALITY: poor PREP TYPE:Other: ESTIMATED BLOOD LOSS: None CONSENT: The patient understands the risks and benefits of the procedure and understands that these risks include, but are not limited to: sedation, allergic reaction, infection, perforation and/or bleeding. Alternative means of evaluation and treatment include, among others: physical exam, x-rays, and/or surgical intervention. The patient elects to proceed with this endoscopic procedure. medical equipment was checked for proper function. Hand hygiene and appropriate measures for infection prevention was taken. After the risks, benefits and alternatives of the procedure were thoroughly explained, Informed consent was verified, confirmed and timeout was successfully executed by the treatment team. A digital exam The Pentax [id number] endoscope was introduced through the anus and advanced to the splenic flexure. The instrument was then slowly withdrawn as the colon was fully examined. COLON FINDINGS: Stricture splenic flexure-scope could not be passed multiple ulcers in sigmoid,descending, rectum-biopsy fro splenic flexure , rectum. Retroflexed views revealed internal hemorrhoids and Retroflexed views revealed small internal hemorrhoids The scope was then completely withdrawn from the patient and the procedure terminated. ADVERSE EVENTS: There were no complications. IMPRESSIONS: 1. Stricture splenic flexure-scope could not be passed multiple ulcers in sigmoid,descending, rectum-biopsy fro splenic flexure , rectum 2. Retroflexed views revealed internal hemorrhoids 3. Retroflexed views revealed small internal hemorrhoids RECOMMENDATIONS: 1. Await biopsy results. Biopsy results will not be ready for 7-10 days. If you don't hear from us in two weeks, call our office for results. 2. Cta when able gastrografin enema clear liquids RECALL: Colonoscopy, pending biopsy results Chloe Perry MD eSigned: Chloe Perry MD 05/27/2017 2:49 PM cc: PATIENT NAME: Aristides Gutierrez MR#: [id number]
--- NOTE | 2017-05-27 17:40 | RADRPT ---
EXAM DATE/TIME: 05/27/2017 16:31 [facility] COMPARISON: CT ABDOMEN & PELVIS W CONTRAST, May 25, 2017, 16:29. INDICATIONS : Abdominal pain. MEDICAL HISTORY : Hypercholesterolemia. Hypertension. Coronary artery disease. Collapsed lung. Arthritis. Right leg fr acture. Diabetes. Measles. C.diff. SURGICAL HISTORY : Pacemaker. Right chest tube. Right knee surgery. ENCOUNTER: Initial ACUITY: 1 day PAIN SCORE: /10 LOCATION: [place]. AORTA: SAGITTAL PROXIMAL: 82.0 cm/sec SAGITTAL MID: 58.8 cm/sec SAGITTAL DISTAL: 53.9 cm/sec CELIAC ARTERY: CA ORIGIN: 276.8 cm/sec CA PROXIMAL: 290.7 cm/sec CA MID: 300.0 cm/sec CA DISTAL: 286.1 cm/sec HEPATIC ARTERY: 239.6 cm/sec SPLENIC ARTERY: 287.4 cm/sec SUPERIOR MESENTERIC ARTERY: SMA PROXIMAL: 351.3 cm/sec SMA MID: 199.2 cm/sec SMA DISTAL: 293.9 cm/sec FINDINGS: There are elevated velocities in both the celiac and SMA without spectral broadening. The elevated v elocities would suggest the stenosis however there is minimal atherosclerotic vascular disease by com puted tomography. 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 Velocity in the SMA was suggest the stenosis of greater than 50% the specificity of proximal 90%. CONCLUSION: Discordant velocities in imaging findings. CT angiography may be of benefit. Delfin Mittal MD FACR on May 27, 2017 at 17:34 Board Certified Radiologist. This report was verified electronically.
[2017-05-27] MEDS: INSULIN DETEMIR 100 UNITS/ML VIAL SQ SCH (20:54)
[2017-05-27] MEDS: DONEPEZIL HCL 5 MG TAB PO SCH (20:54)
[2017-05-28] VITALS (12 sets, daily range): BP systolic 109–134; BP diastolic 49–68; PULSE 64–92; RESP 18–23; TEMP 97.4–98.6; O2SAT 98–100
[2017-05-28] MEDS: NOREPINEPHRINE INJ 4 MG in SODIUM CHLOR 0.9% 250 ML INJ 246 ML IV PRN ×3 (02:29→19:30)
[2017-05-28] MEDS: SODIUM CHLOR 0.9% 1000 ML INJ 1,000 ML IV SCH ×3 (03:00→17:36)
[2017-05-28] MEDS: FAMOTIDINE 20 MG/2 ML VIAL IV PUSH SCH ×2 (04:23→17:34)
[2017-05-28] MEDS: HEPARIN SODIUM - SQ 10,000 UNITS/ML VIAL SQ SCH ×2 (04:23→17:35)
[2017-05-28] MEDS: metroNIDAZOLE 500 MG INJ 100 ML IV SCH ×4 (04:23→17:35)
[2017-05-28 05:28] LABS: AUTOMATED NEUTROPHIL # 16.6 TH/MM3 (1.8-7.7); BASOPHIL # 0.1 TH/MM3 (0-0.2); BASOPHIL % 0.4 % (0.0-2.0); EOSINOPHIL % 0.1 % (0.0-4.0); HEMATOCRIT 34.6 % (39.0-51.0); LYMPH % 6.4 % (9.0-44.0); LYMPHOCYTE # 1.2 TH/MM3 (1.0-4.8); MEAN CELL VOLUME 89.1 FL (80.0-100.0); MEAN CORPUSCULAR HEMOGLOBIN 28.1 PG (27.0-34.0); MEAN CORPUSCULAR HGB CONC 31.6 % (32.0-36.0); MONO % 4.5 % (0.0-8.0); NEUT % 88.6 % (16.0-70.0); PLATELET COUNT 286 TH/MM3 (150-450); RED BLOOD COUNT 3.89 MIL/MM3 (4.50-5.90); RED CELL DISTRIBUTION WIDTH 16.3 % (11.6-17.2); WHITE BLOOD COUNT 18.7 TH/MM3 (4.0-11.0)
[2017-05-28 06:02] LABS: HEMO FLAGS AUTO DIFF
[2017-05-28] MEDS: DEXTROSE 50% IN WATER 50 ML VIAL(D50) IV PUSH PRN ×2 (07:05→12:26)
[2017-05-28 07:21] LABS: BICARBONATE 16.7 MEQ/L (21.0-32.0)
[2017-05-28 07:35] LABS: POTASSIUM 2.4 MEQ/L (3.5-5.1)
[2017-05-28 07:53] LABS: CALCIUM-PROTEIN CORRECTED 7.1 MG/DL (8.5-10.1)
[2017-05-28] MEDS: INSULIN ASPART SUPPLEMENTAL SCALE SQ SCH ×4 (08:00→19:49)
[2017-05-28 08:05] LABS: BANDS 17 % (0-6); BURR CELLS 1+ (NORMAL); CORRECTED NUCLEATED RBC 1 /100 WBC (0-0); MYELOCYTES 1 % (0-0); NEUTROPHIL # MANUAL DIFF 17.4 TH/MM3 (1.8-7.7); PLATELET ESTIMATE SMEAR NORMAL (NORMAL); PLATELET MORPHOLOGY NORMAL (NORMAL); POLYS (SEG NEUTROPHILS) 75 % (16-70); SCAN/DIFF FINAL DIFF MANUAL; WBC DIFF SAMPLE 100
[2017-05-28] MEDS: VANCOMYCIN 500 MG VIAL (FOR ORAL USE ONLY) PO SCH ×4 (08:37→19:30)
[2017-05-28] MEDS: SODIUM CHLORIDE 0.9% FLUSH 10 ML FLUSH IV FLUSH SCH ×2 (08:37→19:30)
[2017-05-28] MEDS: FLUoxetine HCL 20 MG CAP PO SCH (08:37)
[2017-05-28] MEDS: GABAPENTIN 100 MG CAP PO SCH ×3 (08:37→17:35)
[2017-05-28] MEDS: INSULIN DETEMIR 100 UNITS/ML VIAL SQ SCH ×2 (08:38→19:49)
[2017-05-28] MEDS: COLLAGENASE OINT 30 GM TUBE TOPICAL SCH (08:38)
[2017-05-28] MEDS ORDERED: POTASSIUM CHLOR 40 MEQ PREMIX 100 ML IV ONE (09:00)
[2017-05-28] MEDS: ONDANSETRON HCL 4 MG/2 ML VIAL IVP PRN ×2 (10:48→17:42)
--- NOTE | 2017-05-28 14:16 | HHI.IDPN ---
Subjective Subjective Remarks Patient is a 66-year-old male, presented to the hospital complaining of sudden onset of abdominal pain, nausea and vomiting. His vomiting apparently had a feculent smell. There was mention that he has not had a bowel movement for about 2-3 days. On presentation his WBC was up to 20,000. His lactic acid is elevated. CT of the abdomen and pelvis with IV contrast, but no oral contrast showing possible obstruction. Since admission patient has had significant volume of liquid stool. He was transferred to the ICU for hypotension and closer monitoring. He has not been febrile. He still complaining of abdominal pain. Patient is not a good historian. Got history from the patient's , as well as from old records. Patient was apparently in the hospital in [place] back in January 2017. At that time he had diarrhea, and workup showed evidence of colitis on the left side of his colon. There was no evidence of ischemic colitis by CTA, no IBD. During that hospitalization he also had atrial fibrillation with RVR, and required cardioversion. Infectious disease consultation has been requested to evaluate the patient. Notes reviewed Temps ok On levophed Colonoscopy findings noted Path report pending Has a lot of liquid tool Abdominal pain better Having hiccups C diff toxin (+) One BC with GNR Creatinine worse Has worsening acidosis Increasing creatinine Antibiotics I attest that I obtained, updated or reviewed the home and current medications. PO Vancomycin IV Flagyl Current Medications Medications (Trade) Dose Ordered Sig/Tricia Route Start Time Stop Time Status Last Admin (NS Flush) 2 ml UNSCH PRN IV FLUSH 05/25/17 17:45 (NS Flush) 2 ml BID IV FLUSH 05/25/17 21:00 05/28/17 08:37 (Zofran Inj) 4 mg Q6H PRN IVP 05/25/17 17:45 05/28/17 10:48 (Heparin Inj) 5,000 units Q12H SQ 05/25/17 18:00 05/28/17 04:23 (Narcan Inj) 0.4 mg UNSCH PRN IV PUSH 05/25/17 17:45 (Milk Of Magnesia Liq) 30 ml Q12H PRN PO 05/25/17 17:45 (Senokot) 17.2 mg Q12H PRN PO 05/25/17 17:45 (Dulcolax Supp) 10 mg DAILY PRN RECTAL 05/25/17 17:45 (Lactulose Liq) 30 ml DAILY PRN PO 05/25/17 17:45 (Coreg) 3.125 mg BID PO 05/26/17 09:00 Future Hold (Aricept) 5 mg HS PO 05/26/17 21:00 05/27/17 20:54 (PROzac) 40 mg DAILY PO 05/26/17 09:00 05/28/17 08:37 (D50w (Vial) Inj) 50 ml UNSCH PRN IV PUSH 05/25/17 23:00 05/28/17 12:26 (Glucagon Inj) 1 mg UNSCH PRN OTHER 05/25/17 23:00 (NovoLOG SUPPLEMENTAL SCALE) 1 ACHS SLIDING SCALE SQ 05/26/17 08:00 05/27/17 17:00 Sodium Chloride 1,000 ml @ 125 mls/hr Q8H IV 05/26/17 11:00 05/28/17 06:47 (Duoneb Neb) 1 ampule Q4HR NEB PRN INH 05/26/17 11:45 Phenylephrine HCl 40 mg/Dextrose 500 ml @ 30 mls/hr TITRATE PRN IV 05/26/17 13:00 05/26/17 12:45 (Brethine Inj) 1 mg UNSCH PRN SQ 05/26/17 14:30 Norepinephrine Bitartrate 4 mg/ Sodium Chloride 250 ml @ 7.5 mls/hr TITRATE PRN IV 05/26/17 15:00 05/28/17 11:51 (Neurontin) 100 mg TID PO 05/26/17 18:00 05/28/17 12:17 (Santyl Oint) 1 applic DAILY TOPICAL 05/27/17 09:00 05/28/17 08:38 Metronidazole 100 ml @ 100 mls/hr Q6HR IV 05/27/17 13:00 05/28/17 12:17 (VANCOMYCIN for oral use only) 500 mg QID PO 05/27/17 13:00 05/28/17 12:17 (Pepcid Inj) 10 mg Q12H IV PUSH 05/27/17 16:00 05/28/17 04:23 (Levemir Inj) 10 units Q12HR SQ 05/27/17 21:00 05/27/17 20:54 Lines RSC TLC Past Medical History 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 difficile colitis RLE fracture, required a cast Past Surgical History R knee surgery CT for PTX Allergies: Coded Allergies: No Known Allergies (Unverified Adverse Reaction, Unknown, 05/25/17) Objective . Vital Signs Date Time Temp Pulse Resp B/P (MAP) Pulse Ox O2 Delivery O2 Flow Rate FiO2 05/28/17 12:00 97.4 87 20 128/63 (84) 100 05/28/17 11:51 79 122/63 05/28/17 10:37 100 Nasal Cannula 3.00 05/28/17 08:00 97.6 78 20 128/63 (84) 100 05/28/17 07:00 70 05/28/17 05:24 78 127/58 05/28/17 05:11 100 Nasal Cannula 3.00 05/28/17 04:00 98.1 92 21 109/58 (75) 100 05/28/17 02:29 70 107/47 05/28/17 00:59 99 Nasal Cannula 4.00 05/28/17 00:00 98.0 73 23 112/49 (70) 99 05/27/17 23:00 68 05/27/17 22:37 96 Nasal Cannula 3.00 05/27/17 20:00 97.8 90 22 118/59 (78) 100 05/27/17 17:16 66 126/32 05/27/17 16:00 98.4 72 19 138/46 (76) 93 05/27/17 15:00 70 . Laboratory Tests Test 05/27/17 05:25 05/28/17 04:20 White Blood Count 17.8 TH/MM3 18.7 TH/MM3 Red Blood Count 3.70 MIL/MM3 3.89 MIL/MM3 Hemoglobin 10.5 GM/DL 10.9 GM/DL Hematocrit 33.2 % 34.6 % Mean Corpuscular Volume 89.8 FL 89.1 FL Mean Corpuscular Hemoglobin 28.4 PG 28.1 PG Mean Corpuscular Hemoglobin Concent 31.6 % 31.6 % Red Cell Distribution Width 16.0 % 16.3 % Platelet Count 348 TH/MM3 286 TH/MM3 Mean Platelet Volume 8.0 FL 7.6 FL Neutrophils (%) (Auto) 89.5 % 88.6 % Lymphocytes (%) (Auto) 6.6 % 6.4 % Monocytes (%) (Auto) 3.8 % 4.5 % Eosinophils (%) (Auto) 0.0 % 0.1 % Basophils (%) (Auto) 0.1 % 0.4 % Neutrophils # (Auto) 15.9 TH/MM3 16.6 TH/MM3 Lymphocytes # (Auto) 1.2 TH/MM3 1.2 TH/MM3 Monocytes # (Auto) 0.7 TH/MM3 0.8 TH/MM3 Eosinophils # (Auto) 0.0 TH/MM3 0.0 TH/MM3 Basophils # (Auto) 0.0 TH/MM3 0.1 TH/MM3 CBC Comment AUTO DIFF AUTO DIFF Differential Total Cells Counted 100 100 Neutrophils % (Manual) 33 % 75 % Band Neutrophils % 57 % 17 % Lymphocytes % 6 % 4 % Monocytes % 4 % 3 % Neutrophils # (Manual) 16.0 TH/MM3 17.4 TH/MM3 Differential Comment FINAL DIFF MANUAL FINAL DIFF MANUAL Platelet Estimate NORMAL NORMAL Platelet Morphology Comment NORMAL NORMAL Red Cell Morphology Comment NORMAL Myelocytes 1 % Nucleated Red Blood Cells 1 /100 WBC Mariama Cells 1+ Laboratory Tests Test 05/26/17 22:30 05/27/17 05:25 05/28/17 06:28 Lactic Acid Level 1.2 mmol/L 1.1 mmol/L Blood Urea Nitrogen 81 MG/DL 80 MG/DL Creatinine 3.53 MG/DL 4.16 MG/DL Random Glucose 251 MG/DL 53 MG/DL Total Protein 5.0 GM/DL 4.7 GM/DL Albumin 1.5 GM/DL Calcium Level 6.6 MG/DL 6.0 MG/DL Phosphorus Level 9.3 MG/DL Magnesium Level 2.4 MG/DL Alkaline Phosphatase 91 U/L Aspartate Amino Transf (AST/SGOT) 18 U/L Alanine Aminotransferase (ALT/SGPT) 12 U/L Total Bilirubin 0.3 MG/DL Sodium Level 143 MEQ/L 144 MEQ/L Potassium Level 3.2 MEQ/L 2.4 MEQ/L Chloride Level 110 MEQ/L 112 MEQ/L Carbon Dioxide Level 15.9 MEQ/L 16.7 MEQ/L Anion Gap 17 MEQ/L 15 MEQ/L Estimat Glomerular Filtration Rate 17 ML/MIN 14 ML/MIN Protein Corrected Calcium 7.7 MG/DL 7.1 MG/DL Carcinoembryonic Antigen 3.0 NG/ML CA 19-9 Antigen 28.3 U/ML Microbiology Date/Time Source Procedure Growth Status 05/25/17 14:30 Blood Peripheral Aerobic Blood Culture - Preliminary NO GROWTH IN 3 DAYS Resulted 05/25/17 14:30 Blood Peripheral Anaerobic Blood Culture - Preliminary NO GROWTH IN 3 DAYS Resulted 05/25/17 14:25 Blood Peripheral Aerobic Blood Culture - Preliminary NO GROWTH IN 3 DAYS Resulted 05/25/17 14:25 Anaerobic Blood Culture - Preliminary Gram Negative Rafita Resulted 05/26/17 15:10 Urine Catheterized Urine Urine Culture - Final NO GROWTH IN 48 HOURS. Complete Imaging RADIOLOGY STUDIES/FILMS REVIEWED Chest X-Ray 05/27/17 0600 Signed Impressions: Service Date/Time: Saturday, May 27, 2017 05:19 - CONCLUSION: Developing left lung infiltrates. Forrest Green MD Abdomen Ultrasound 05/27/17 0000 Signed Impressions: Service Date/Time: Saturday, May 27, 2017 16:31 - CONCLUSION: Discordant velocities in imaging findings. CT angiography may be of benefit. Delfin Mittal MD FACR Abdomen/Pelvis CT 05/25/17 1428 Signed Impressions: Service Date/Time: Thursday, May 25, 2017 16:29 - CONCLUSION: 1. Severe small bowel and colonic distention to the level of the splenic flexure where there is a sharp transition zone. Obstructing neoplasm is not excluded. Willi Muñoz MD Foot X-Ray 05/25/17 1401 Signed Impressions: Service Date/Time: Thursday, May 25, 2017 15:01 - CONCLUSION: Spiral fracture fifth metatarsal. Delfin Mittal MD FACR Chest X-Ray 05/25/17 1401 Signed Impressions: Service Date/Time: Thursday, May 25, 2017 14:59 - CONCLUSION: Moderate hyperinflation with pacer otherwise negative. Delfin Mittal MD FACR Physical Exam GENERAL: Awake and alert, not in respiratory distress. SKIN: Cool and dry. No generalized rash, no ecchymoses and no evidence of embolic lesions. HEAD: Atraumatic. Normocephalic. No temporal wasting, or tenderness. EYES: [place] conjunctiva. No petechia or hemorrhage. Pupils equal, round and reactive to light. Extraocular movements full and intact. No scleral icterus. No injection or drainage. EARS, NOSE AND THROAT: Nose without bleeding or purulent nasal discharge. No sinus tenderness. Mucous membranes pink and moist. Poor dentition. No oral thrush. NECK: Trachea midline. Supple and not tender, no meningeal signs CARDIOVASCULAR: Regular rate and rhythm. No murmurs, rubs or gallops heard. Pacer in L upper chest, with no evidence of infection RESPIRATORY: Clear to auscultation. Breath sounds equal bilaterally. No rales , wheezing or rhonchi. Decreased at bases ABDOMEN: Soft, mildly distended, with tenderness, in mid to upper quadrants. Bowel sounds present and hypoactive, no guarding. No rebound. No organomegaly. EXTREMITIES: No clubbing, cyanosis, or edema. No calf tenderness. Well perfused and warm. A small ulcer in R medial heel, with no evidence of infection NEUROLOGICAL: Awake and alert Cranial nerves grossly intact. Motor grossly within normal limits. PSYCHIATRIC: Normal affect, calm and cooperative. LINE: No evidence of infection Has stool collection bag, has liquid stool, green Assessment & Plan Remarks IMPRESSION Sepsis on presentation, now with shock, has N/V and diarrhea - ?Recurrent C diff colitis, ?ischemic bowel (previous CTA ok per records, ?due to low flow state from hypotension) GNR in one BC ?Bowel obstruction, last colonoscopy no mention of colon mass Prob with CKD, with worsening due to hypotension RECOMMENDATION Continue empiric C diff Rx : IV Flagyl and po Vancomycin Start Cefepime Repeat BC today Follow path report Follow C/S Monitor progress Spoke wit at bedside Smiley Medina MD May 28, 2017 14:16
--- NOTE | 2017-05-28 14:38 | HHI.GIFU ---
Subjective Remarks Resting in bed. NGT to LIWS. States his pain has improved. Flexiseal with large amount of dark liquid stool. Getting ready to go down for gastrografin enema (Caridad Bradford) Objective Vitals I&O Vital Signs Date Time Temp Pulse Resp B/P (MAP) Pulse Ox O2 Delivery O2 Flow Rate FiO2 05/28/17 12:00 97.4 87 20 128/63 (84) 100 05/28/17 11:51 79 122/63 05/28/17 10:37 100 Nasal Cannula 3.00 05/28/17 08:00 97.6 78 20 128/63 (84) 100 05/28/17 07:00 70 05/28/17 05:24 78 127/58 05/28/17 05:11 100 Nasal Cannula 3.00 05/28/17 04:00 98.1 92 21 109/58 (75) 100 05/28/17 02:29 70 107/47 05/28/17 00:59 99 Nasal Cannula 4.00 05/28/17 00:00 98.0 73 23 112/49 (70) 99 05/27/17 23:00 68 05/27/17 22:37 96 Nasal Cannula 3.00 05/27/17 20:00 97.8 90 22 118/59 (78) 100 05/27/17 17:16 66 126/32 05/27/17 16:00 98.4 72 19 138/46 (76) 93 05/27/17 15:00 70 I/O 05/27/17 05/27/17 05/27/17 05/28/17 05/28/17 05/28/17 07:00 15:00 23:00 07:00 15:00 23:00 Intake Total 3950 ml 1692 ml 1822 ml Output Total 1050 ml 600 ml 1100 ml Balance 2900 ml 1092 ml 722 ml Intake Oral 360 ml 80 ml 120 ml IV Total 3590 ml 1312 ml 1642 ml Other 300 ml 60 ml Output Urine Total 200 ml 400 ml 300 ml Stool Total 800 ml 200 ml 800 ml Gastric Drainage Total 50 ml Laboratory Laboratory Tests Test 05/28/17 04:20 05/28/17 06:28 White Blood Count 18.7 Red Blood Count 3.89 Hemoglobin 10.9 Hematocrit 34.6 Mean Corpuscular Volume 89.1 Mean Corpuscular Hemoglobin 28.1 Mean Corpuscular Hemoglobin Concent 31.6 Red Cell Distribution Width 16.3 Platelet Count 286 Mean Platelet Volume 7.6 Neutrophils (%) (Auto) 88.6 Lymphocytes (%) (Auto) 6.4 Monocytes (%) (Auto) 4.5 Eosinophils (%) (Auto) 0.1 Basophils (%) (Auto) 0.4 Neutrophils # (Auto) 16.6 Lymphocytes # (Auto) 1.2 Monocytes # (Auto) 0.8 Eosinophils # (Auto) 0.0 Basophils # (Auto) 0.1 CBC Comment AUTO DIFF Differential Total Cells Counted 100 Neutrophils % (Manual) 75 Band Neutrophils % 17 Lymphocytes % 4 Monocytes % 3 Neutrophils # (Manual) 17.4 Myelocytes 1 Nucleated Red Blood Cells 1 Differential Comment FINAL DIFF MANUAL Platelet Estimate NORMAL Platelet Morphology Comment NORMAL [place] Cells 1+ Blood Urea Nitrogen 80 Creatinine 4.16 Random Glucose 53 Total Protein 4.7 Calcium Level 6.0 Sodium Level 144 Potassium Level 2.4 Chloride Level 112 Carbon Dioxide Level 16.7 Anion Gap 15 Estimat Glomerular Filtration Rate 14 Protein Corrected Calcium 7.1 Date/Time Source Procedure Growth Status 05/25/17 14:30 Blood Peripheral Aerobic Blood Culture - Preliminary NO GROWTH IN 3 DAYS Resulted 05/25/17 14:30 Blood Peripheral Anaerobic Blood Culture - Preliminary NO GROWTH IN 3 DAYS Resulted 05/26/17 15:10 Urine Catheterized Urine Urine Culture - Final NO GROWTH IN 48 HOURS. Complete Imaging Last Impressions Chest X-Ray 05/27/17 0600 Signed Impressions: Service Date/Time: Saturday, May 27, 2017 05:19 - CONCLUSION: Developing left lung infiltrates. Forrest Green MD Abdomen Ultrasound 05/27/17 0000 Signed Impressions: Service Date/Time: Saturday, May 27, 2017 16:31 - CONCLUSION: Discordant velocities in imaging findings. CT angiography may be of benefit. Delfin Mittal MD FACR Abdomen/Pelvis CT 05/25/17 1428 Signed Impressions: Service Date/Time: Thursday, May 25, 2017 16:29 - CONCLUSION: 1. Severe small bowel and colonic distention to the level of the splenic flexure where there is a sharp transition zone. Obstructing neoplasm is not excluded. Willi Muñoz MD Foot X-Ray 05/25/17 1401 Signed Impressions: Service Date/Time: Thursday, May 25, 2017 15:01 - CONCLUSION: Spiral fracture fifth metatarsal. Delfin Mittal MD FACR Physical Exam HEENT: Normocephalic; atraumatic; no jaundice. CHEST: CTA CARDIAC: RRR ABDOMEN: Soft, nondistended, mild right sided tenderness; no hepatosplenomegaly ; bowel sounds are present in all four quadrants. NGT to liws. Flexiseal with large amount liquid dark stool EXTREMITIES: No clubbing, cyanosis, or edema. SKIN: Normal; no rash; no jaundice. PRINCIPAL SECURITY ARCHITECT: No focal deficits; alert and oriented times three. (Caridad Bradford [facility]) Assessment and Plan Plan ASSESSMENT - Abd pain, N/V/D. CT abdomen and pelvis (05/25/17)---> Severe small bowel and colonic distention to the level of the splenic flexure where this is a sharp transition zone. Obstructing neoplasm is not excluded. S/P Colonoscopy (05/27/17)---> 1. Stricture splenic flexure-scope could not be passed, multiple ulcers in sigmoid,descending, rectum-biopsy fro splenic flexure, rectum 2. Retroflexed views revealed internal hemorrhoids 3. Retroflexed views revealed small internal hemorrhoids. Pathology pending. Pt has CDiff. ? ischemia. Unable to have CTA secondary to EDGARDO. US Abdomen (05/27/17)---> Discordant velocities in imaging findings, CTA may be of benefit. CEA 3.0, Ca 19-9 28.3. NGT to LIWS. Flexiseal with large amount liquid stool. GS following. - CDiff Colitis, Epid 027. Oral Vanco, Flagyl. - Severe sepsis, leukocytosis. Leukocytosis- 20.1 on admission. - Anemia. 10.9/34.6. - EDGARDO. Creat 4.16, GFR 14. - CMP, CHF, DM, Hyperlipidemia per attending. PLAN - NPO - NGT to LIWS - Gastrografin enema - Cont. Oral Vanco - Cont. Flagyl - Monitor labs - Supportive care - Consider CTA once kidney issues resolve, ? >50% stenosis in the celiac, sma - Further recommendations to follow based on results of above - Pt seen and examined by Dr. Ray and myself and this note is written on his behalf (Caridad Bradford) Physician Comments Seen and examined, plan as above. D/W patient, will check BE and biopsies results. Will follow up with him. (Robby Ray MD) Caridad Bradford May 28, 2017 14:38 Robby Ray MD May 28, 2017 15:33
--- NOTE | 2017-05-28 15:15 | HHI.PR ---
Subjective Subjective Notes Resting in bed No complaints; reports abdominal pain better Objective Vitals/I&O Vital Signs Date Time Temp Pulse Resp B/P (MAP) Pulse Ox O2 Delivery O2 Flow Rate FiO2 05/28/17 12:00 97.4 87 20 128/63 (84) 100 05/28/17 10:37 Nasal Cannula 3.00 Labs Laboratory Tests Test 05/28/17 04:20 05/28/17 06:28 White Blood Count 18.7 Red Blood Count 3.89 Hemoglobin 10.9 Hematocrit 34.6 Mean Corpuscular Volume 89.1 Mean Corpuscular Hemoglobin 28.1 Mean Corpuscular Hemoglobin Concent 31.6 Red Cell Distribution Width 16.3 Platelet Count 286 Mean Platelet Volume 7.6 Neutrophils (%) (Auto) 88.6 Lymphocytes (%) (Auto) 6.4 Monocytes (%) (Auto) 4.5 Eosinophils (%) (Auto) 0.1 Basophils (%) (Auto) 0.4 Neutrophils # (Auto) 16.6 Lymphocytes # (Auto) 1.2 Monocytes # (Auto) 0.8 Eosinophils # (Auto) 0.0 Basophils # (Auto) 0.1 CBC Comment AUTO DIFF Differential Total Cells Counted 100 Neutrophils % (Manual) 75 Band Neutrophils % 17 Lymphocytes % 4 Monocytes % 3 Neutrophils # (Manual) 17.4 Myelocytes 1 Nucleated Red Blood Cells 1 Differential Comment FINAL DIFF MANUAL Platelet Estimate NORMAL Platelet Morphology Comment NORMAL [place] Cells 1+ Blood Urea Nitrogen 80 Creatinine 4.16 Random Glucose 53 Total Protein 4.7 Calcium Level 6.0 Sodium Level 144 Potassium Level 2.4 Chloride Level 112 Carbon Dioxide Level 16.7 Anion Gap 15 Estimat Glomerular Filtration Rate 14 Protein Corrected Calcium 7.1 Date/Time Source Procedure Growth Status 05/25/17 14:30 Blood Peripheral Aerobic Blood Culture - Preliminary NO GROWTH IN 3 DAYS Resulted 05/25/17 14:30 Blood Peripheral Anaerobic Blood Culture - Preliminary NO GROWTH IN 3 DAYS Resulted 05/26/17 15:10 Urine Catheterized Urine Urine Culture - Final NO GROWTH IN 48 HOURS. Complete Cardiovascular: Regular Lungs: Clear Abdomen: Other (mild RLQ tenderness; abdomen flat; non distended ) Extremities: No edema A/P Assessment and Plan 66 year old male with diarrhea; diffuse abdominal distention---? neoplastic mass -Clear liquids -Going to Gastrografin enema today -NGT to LIWS -Follow WBC -CCM following -GI following ---s/p colonoscopy -ID following---- + c-diff---on Oral Vanco and Flagyl Attending Statement patient seen at bedside some improvement colonoscopy unable to pass stricture await enema today abx for c diff Attestation The exam, history, and the medical decision-making described in the above note were completed with the assistance of the mid-level provider. I reviewed and agree with the findings presented. I attest that I had a [id number] encounter with the patient on the same day, and personally performed and documented my assessment and findings in the medical record. Marianne Torres May 28, 2017 15:15 Michael Soares MD May 30, 2017 04:29
[2017-05-28] MEDS ORDERED: DIATRIZOATE MEGLUM/DIATRIZOATE SOD 120 ML BTL (for RAD DIAG) RECTAL ONE (16:03)
--- NOTE | 2017-05-28 16:09 | RADRPT ---
EXAM DATE/TIME: 05/28/2017 15:14 [facility] COMPARISON: CT ABDOMEN & PELVIS W CONTRAST, May 25, 2017, 16:29. INDICATIONS : Stricture in splenic flexure. FLUORO TIME: 3 minutes IMAGE COUNT: 12 CONTRAST: 1. Gastroview MEDICAL HISTORY : Cardiovascular disease. SURGICAL HISTORY : Pacemaker. ENCOUNTER: Subsequent ACUITY: 1 day PAIN SCORE: 5/10 LOCATION: Abdomen. FINDINGS: Preliminary film is demonstrates an air-filled dilated loops of small bowel.. Under fluoroscopic guidance a Gastrografin enema was performed with free flow of contrast into the co anil. This was a limited study since patient was unable to hold onto the enema tip. However, there is a high grade stricture involving the colon at the level of the splenic flexure as demonstrated on a r ecent CT scan of the abdomen.. Post evacuation radiographs are unremarkable. CONCLUSION: Limited examination. However, there is a focal high grade stricture involving the junction between th e transverse colon and descending colon at the level of the splenic flexure on the left side. Neoplas tic disease is the primary consideration. John Francois MD on May 28, 2017 at 16:02 Board Certified Radiologist. This report was verified electronically.
[2017-05-28] MEDS: CEFEPIME INJ 2,000 MG in SODIUM CHLORIDE 0.9% INJ 100 ML IV SCH (17:36)
--- NOTE | 2017-05-28 17:36 | HHI.CCPN ---
Subjective Remarks/Hospital Course This is a a 66 year old male with a history of diabetes mellitus type 1, diabetic ulcer, 3rd degree heart block S/p pacemaker placement that presented to the emergency department on 05/25/2017 due to sudden onset of abdominal pain , nausea and vomiting. He has not had a bowel movement in 3 days. On arrival, patient has leukocytosis with WBC count 20.1K, lactic acid 4.7. CT abdomen pelvis shows small bowel and colonic distention with transition point at the splenic flexure. CT abdomen and pelvis also indicated possibility of neoplasm causing obstruction. Patient denies any headache, chest pain, cough, shortness of breath. denies any Dysuria and hematuria. Of note, patient has lost 20-30 lbs in the recent months. The patient was admitted to the medical floor, throughout the night the patient condition deteriorated became hemodynamically unstable, systolic blood pressures in the 80s. Critical care medicine was consulted. [place] [facility] [place] the patient was noted to have a blood pressure 79/50, HR 90's the patient was bolused 2 L of normal saline IV fluid right regarding A-line was placed the patient was placed on low dose phenylephrine infusion 20 mcgs. Consent was obtained and a right subclavian central line was placed the patient received a third liter IV fluids labs are pending at this time. Of note patient previously at [facility] in [place] when noted to have biopsies records not obtained at this time reveals abnormal pathology unknown. CEA levels pending. 05/27: Requires FMS for corrosive diarrhea. Plan for colonoscopy today; looking specifically for tumor at splenic flexure. Renal function continues to deteriorate. 05/28: Contrast study reveals high grade stricture at splenic flexure - likely a malignancy. Objective Vital Signs Date Time Temp Pulse Resp B/P (MAP) Pulse Ox O2 Delivery O2 Flow Rate FiO2 05/28/17 12:00 97.4 87 20 128/63 (84) 100 05/28/17 10:37 Nasal Cannula 3.00 Intake and Output 05/28/17 05/28/17 05/29/17 08:00 16:00 00:00 Intake Total 1822 ml Output Total 1100 ml Balance 722 ml Result Diagram: 05/28/17 0420 05/28/17 0628 Other Results Microbiology Date/Time Source Procedure Growth Status 05/26/17 15:10 Urine Catheterized Urine Urine Culture - Final NO GROWTH IN 48 HOURS. Complete Imaging Last Impressions Abdomen/Pelvis CT 05/25/17 1428 Signed Impressions: Service Date/Time: Thursday, May 25, 2017 16:29 - CONCLUSION: 1. Severe small bowel and colonic distention to the level of the splenic flexure where there is a sharp transition zone. Obstructing neoplasm is not excluded. Willi Muñoz MD Foot X-Ray 05/25/17 1401 Signed Impressions: Service Date/Time: Thursday, May 25, 2017 15:01 - CONCLUSION: Spiral fracture fifth metatarsal. Delfin Mittal MD FACR Chest X-Ray 05/25/17 1401 Signed Impressions: Service Date/Time: Thursday, May 25, 2017 14:59 - CONCLUSION: Moderate hyperinflation with pacer otherwise negative. Delfin Mittal MD FACR Objective Remarks GENERAL: Emaciated critically ill-appearing gentleman alert and oriented SKIN: Warm and dry. Poor skin turgor HEAD: Atraumatic. Normocephalic. EYES: Pupils equal and round. No scleral icterus. No injection or drainage. ENT: No nasal bleeding or discharge. Mucous membranes dry NECK: Trachea midline. Airway patent, unobstructed. CARDIOVASCULAR: Normal rate, regular rhythm. No JVD. RESPIRATORY: No accessory muscle use. Clear to auscultation. Breath sounds equal bilaterally. GASTROINTESTINAL: Abdomen soft, non-tender, moderately distended. No guarding. MUSCULOSKELETAL: Extremities without clubbing, cyanosis, or edema. No obvious deformities. NEUROLOGICAL: Awake and alert. RASS 0. No gross focal/sensory deficits. Follows commands in all 4 extremities. A/P Assessment and Plan Assessment This is a 66-year-old male patient with a history of C. difficile colitis, fungal esophagitis, duodenal ulcer, erosive gastritis previously hospitalized , now presenting with most likely septic shock secondary to C. difficile colitis versus ischemic bowel from small bowel obstruction. Admit to ICU. Assessment: C. difficile colitis Possible Small bowel obstruction Anion gap metabolic acidosis Hypertension Diabetes mellitus Acute on chronic kidney injury Dehydration H/O IA Cardiomyopathy Tonic systolic congestive heart failure History of third-degree block status post pacemaker insertion H/O Afib RVR (03/12) Cardioverted Dementia mild Diabetic peripheral neuropathy History of tobacco abuse History of alcohol abuse Dyslipidemia Plan Plan by systems: Neurologic: Neurochecks per ICU protocol Avoid sedative type medications Ofirmev IV every 6 hours when necessary Patient previously 14 shots of liquor per week, per old medical records (02/2017 ) 2 shots of Rum/day Monitor for signs of alcohol withdrawal Seizure precautions Continue donepezil 5 mg q hs, continue gabapentin Fluoxetine 40 mg /day Respiratory: Maintain O2 sat greater than 92% Bronchodilators every 4 hours when necessary for wheezing Currently O2 at 2 L nasal cannula Obtain ABG 7.37/29/92/16.5/-7.8 H/O smoking 50 pack years. Counseled on smoking cessation Cardiovascular: Maintain MAP greater than 65mmHg Begin Levophed and Phenylephrine infusions to maintain MAP F/U Pacemaker interrogation Discontinue lisinopril BLAZE inhibitor in the setting of acute kidney injury Hold carvedilol 3.125 BID secondary to hypotension ASA 81mg placed on hold for now Monitor CVP Echo from previous hospital 02/27/17 EF 53% (Previously 30%) Renal: Patient bolused x 3 liters Insert selby -- Strict I/Os - Generally edematous FEN/GI: Monitor electrolytes and replete Replete calcium 2GM calcium gluconate Normal Saline 125 cc/hour Patient previously on atorvastatin Follow LFTs Heme/ID: Obtain blood, urine cultures Obtain serial lactate levels F/U LDH Obtain Procalcitonin level ID following Dr. Medina-REED Ceballos, by mouth Vanco 250mg QID F/U CEA levels Previously hospitalized 03/12/17 C. difficile colitis Endocrine: Glucose monitoring per ICU protocol medium dose regimen DC Levemir -- SSI Prophylaxis: GI Prophylaxis Protonix will change to famotidine in the setting of chronic kidney disease DVT Prophylaxis -- SCDs Heparin Lines: Peripheral IVs 2. Right radial A-line 05/26, right subclavian central line Overall impression: Patient remains critically ill with severe colitis and obstructive bowel pattern. Renal function is deteriorating quickly. Appears to be a colon malignancy. Critical care 38 mins Michael Cornelius MD May 28, 2017 17:35
[2017-05-28] MEDS: DONEPEZIL HCL 5 MG TAB PO SCH (19:30)
[2017-05-28] MEDS: SODIUM BICARBONATE 8.4% INJ 150 MEQ in WATER STERILE FOR INJ 850 ML IV SCH (19:30)
[2017-05-28] MEDS: POTASSIUM CHLOR 20 MEQ PREMIX 100 ML IV SCH ×2 (19:30→23:14)
[2017-05-28 21:24] LABS: BACTERIA, URINE FEW /hpf; BLOOD, URINE MOD (NEG); GLUCOSE,URINE NEG (NEG); KETONE, URINE NEG (NEG); NITRITE,URINE NEG (NEG); PH, URINE 5.5 (5.0-8.5); SQUAMOUS EPITHELIAL CELL URINE <1 /hpf (0-5); URINE COLOR YELLOW (YELLW/STRAW)
[2017-05-28 21:25] LABS: COMMENT (UR) CATH-CULTURE IND; CULTURE IF INDICATED CATH CULTURE IND
--- NOTE | 2017-05-28 22:34 | MB ---
cc: KAREN PALMER MD DATE OF CONSULTATION 05/28/17 REASON FOR CONSULTATION Elevated BUN and creatinine and persistent hypokalemia. HISTORY OF PRESENT ILLNESS This is 66-year-old male with past medical history of diabetes mellitus for more than 10 years, history of chronic kidney disease and acute kidney injury off and on, hypertension, history of hypertension, chronic obstructive pulmonary disease, AV block with post pacemaker placement who came to the hospital with complaint of abdominal pain, distension and nausea, vomiting with diarrhea. I was called to see the patient because of elevated BUN and creatinine. The patient has a creatinine of 1.5 on presentation which has been getting worse and now is 4.1. He has been nonoliguric, passing urine, and he has metabolic acidosis and also has low potassium. The patient is still having loose bowel motion. He was diagnosed with a small bowel obstruction being followed by GI. He has C-difficile positive and getting the antibiotic, also being followed by infectious disease. Colonoscopy done and shows that he has possibility of multiple ulcers in the sigmoid descending rectum and a biopsy was done. The patient denies taking any nonsteroidal anti-inflammatory drugs at home. He did not notice any decrease in the urine output. There was no history of dysuria or hematuria. PAST MEDICAL HISTORY 1. Hypertension, 2. Diabetes mellitus, 3. Chronic obstructive pulmonary disease, 4. Chronic kidney disease, 5. History of A-V block. PAST SURGICAL HISTORY Pacemaker placement. REVIEW OF SYSTEMS The patient has generalized weakness, feeling tired. He currently had NG tube, abdominal distension is much better. He is still having loose bowel motion. There is no vomiting now. He is n.p.o. getting IV fluid and also getting the potassium supplement. Denies any shortness of breath. SOCIAL HISTORY Chronic smoker, smoked one pack per day and occasionally drinks alcoholic beverages. FAMILY HISTORY Noncontributory. ALLERGIES NO KNOWN DRUG ALLERGIES. MEDICATIONS Currently 1. IV fluid with sodium bicarbonate at 100 mL an hour. 2. Prozac 40 mg daily. 3. Aricept 5 mg q.h.s. 4. Heparin 5000 subcu q. 12 hours. 5. Pepcid 10 mg q.12 h 6. Cefepime 2 grams IV q. 24-hour. 7. Metronidazole 500 mg IV q. 6-hour. 8. Vancomycin 500 mg p.o. q.i.d. PHYSICAL EXAMINATION GENERAL: The patient is awake, alert. He is not in acute distress. VITAL SIGNS: Last blood pressure 127/62. His blood pressure on the lower side on admission and the lowest recorded was 80/48 and he was on pressors for some time, temperature now is 98.4, oxygen saturation is 100%. HEENT: Pupils are mid constricted. Nonicteric sclerae, conjunctivae pale. NECK: Supple. JVD is not elevated. LUNGS: The patient has bilateral good air entry with occasional wheezing. HEART: S1, S2 regular rhythm. ABDOMEN: Distended, soft lax. There is no tenderness. Bowel sounds positive. EXTREMITIES: There is no pedal edema. LABORATORY DATA WBC count is 18.7, hemoglobin 10.9, platelet count of 286, neutrophils 80.6%, eosinophils 0.1. Sodium 144, potassium 2.4, ____ 2.7, chloride is 112, bicarb is 16.7, BUN 80, creatinine 4.1, calcium is 6.0 with corrected calcium 7.1, AST, ALT normal, total protein is 4.7 with albumin of 1.5. CEA 19-19 antigen is 28.3. Urinalysis showing pH 5.0 with protein negative. This was an old one. IMAGING STUDIES The patient has abdominal ultrasound done which shows elevated velocity in the celiac and SMA suggesting greater than 50% stenosis. CTA was suggested. Abdomen and pelvis CT scan was done which shows small bowel and colonic distension. The kidneys are mentioned with a small left renal cyst. No evidence of solid renal mass or hydronephrosis. ASSESSMENT/PLAN 1. C-difficile colitis. 2. Acute kidney injury 3. Hypokalemia and metabolic acidosis 4. Colonic ulcers 5. Anemia and leukocytosis. The patient has been nonoliguric. I will check the urinalysis and also get the urine sodium, potassium and osmolality. The acute kidney injury is most likely related to ATN from the hypotension or from the infection and possibility of interstitial nephritis. I agree with continuing IV fluid with sodium bicarbonate, replace more potassium IV and follow the colonic biopsy results, the urine output and the BUN and creatinine. The patient is nonoliguric. There is no acute urgent need for dialysis. Thank you for the consultation and I will follow the patient while he is in the hospital. MD JASSI Escalante/ /6:53 PM /10:14 PM
[2017-05-29] VITALS (11 sets, daily range): BP systolic 101–142; BP diastolic 52–87; PULSE 64–108; RESP 16–23; TEMP 97.9–99.1; O2SAT 95–100
[2017-05-29] MEDS: metroNIDAZOLE 500 MG INJ 100 ML IV SCH ×5 (01:01→22:28)
[2017-05-29] MEDS: FAMOTIDINE 20 MG/2 ML VIAL IV PUSH SCH ×2 (04:28→15:01)
[2017-05-29 04:48] LABS: AUTOMATED NEUTROPHIL # 18.4 TH/MM3 (1.8-7.7); BASOPHIL # 0.1 TH/MM3 (0-0.2); BASOPHIL % 0.3 % (0.0-2.0); EOSINOPHIL # 0.1 TH/MM3 (0-0.4); EOSINOPHIL % 0.6 % (0.0-4.0); HEMATOCRIT 35.6 % (39.0-51.0); LYMPH % 5.6 % (9.0-44.0); LYMPHOCYTE # 1.1 TH/MM3 (1.0-4.8); MEAN CELL VOLUME 87.7 FL (80.0-100.0); MEAN CORPUSCULAR HEMOGLOBIN 28.1 PG (27.0-34.0); MONO % 2.9 % (0.0-8.0); NEUT % 90.6 % (16.0-70.0); PLATELET COUNT 171 TH/MM3 (150-450); RED BLOOD COUNT 4.06 MIL/MM3 (4.50-5.90); RED CELL DISTRIBUTION WIDTH 16.4 % (11.6-17.2); WHITE BLOOD COUNT 20.3 TH/MM3 (4.0-11.0)
[2017-05-29 05:16] LABS: HEMO FLAGS AUTO DIFF
[2017-05-29 05:19] LABS: BICARBONATE 14.7 MEQ/L (21.0-32.0); CALCIUM-PROTEIN CORRECTED 7.6 MG/DL (8.5-10.1); TOTAL BILIRUBIN ADULT 0.2 MG/DL (0.2-1.0)
[2017-05-29 05:21] LABS: POTASSIUM 2.5 MEQ/L (3.5-5.1)
[2017-05-29] MEDS ORDERED: POTASSIUM CHLOR 40 MEQ PREMIX 100 ML IV ONE (05:30)
[2017-05-29] MEDS: HEPARIN SODIUM - SQ 10,000 UNITS/ML VIAL SQ SCH ×2 (05:39→17:27)
[2017-05-29] MEDS: SODIUM BICARBONATE 8.4% INJ 150 MEQ in WATER STERILE FOR INJ 850 ML IV SCH ×4 (06:00→21:26)
[2017-05-29 06:55] LABS: BANDS 4 % (0-6); METAMYELOCYTES 5 % (0-1); MYELOCYTES 1 % (0-0); NEUTROPHIL # MANUAL DIFF 19.1 TH/MM3 (1.8-7.7); PLATELET ESTIMATE SMEAR NORMAL (NORMAL); PLATELET MORPHOLOGY NORMAL (NORMAL); POLYS (SEG NEUTROPHILS) 84 % (16-70); SCAN/DIFF FINAL DIFF MANUAL; WBC DIFF SAMPLE 100
[2017-05-29] MEDS ORDERED: SODIUM CHLOR 0.9% 1000 ML INJ 1,000 ML IV ONE (07:45)
--- NOTE | 2017-05-29 07:50 | HHI.CCPN ---
Subjective Remarks/Hospital Course This is a a 66 year old male with a history of diabetes mellitus type 1, diabetic ulcer, 3rd degree heart block S/p pacemaker placement that presented to the emergency department on 05/25/2017 due to sudden onset of abdominal pain , nausea and vomiting. He has not had a bowel movement in 3 days. On arrival, patient has leukocytosis with WBC count 20.1K, lactic acid 4.7. CT abdomen pelvis shows small bowel and colonic distention with transition point at the splenic flexure. CT abdomen and pelvis also indicated possibility of neoplasm causing obstruction. Patient denies any headache, chest pain, cough, shortness of breath. denies any Dysuria and hematuria. Of note, patient has lost 20-30 lbs in the recent months. The patient was admitted to the medical floor, throughout the night the patient condition deteriorated became hemodynamically unstable, systolic blood pressures in the 80s. Critical care medicine was consulted. The patient was transferred to the [facility] [place], upon presentation the patient was noted to have a blood pressure 79/50, HR 90's the patient was bolused 2 L of normal saline IV fluid right regarding A-line was placed the patient was placed on low dose phenylephrine infusion 20 mcgs. Consent was obtained and a right subclavian central line was placed the patient received a third liter IV fluids labs are pending at this time. Of note patient previously at [facility] in [place] when noted to have biopsies records not obtained at this time reveals abnormal pathology unknown. CEA levels pending. 05/27: Requires FMS for corrosive diarrhea. Plan for colonoscopy today; looking specifically for tumor at splenic flexure. Renal function continues to deteriorate. 05/28: Contrast study reveals high grade stricture at splenic flexure - likely a malignancy. 05/29: Continued metabolic acidosis from sepsis, dehydration from GI losses. Bacteroides in blood. Renal function deteriorating but urine output finally increasing. Continue bicarb gtt. Objective Vital Signs Date Time Temp Pulse Resp B/P (MAP) Pulse Ox O2 Delivery O2 Flow Rate FiO2 05/29/17 05:40 89 84/52 05/29/17 04:00 98.5 19 100 05/28/17 10:37 Nasal Cannula 3.00 Intake and Output 05/29/17 05/29/17 05/30/17 08:00 16:00 00:00 Intake Total 2096 ml Output Total 2500 ml Balance -404 ml Result Diagram: 05/29/17 0420 05/29/17 0420 Other Results Microbiology Date/Time Source Procedure Growth Status 05/26/17 15:10 Urine Catheterized Urine Urine Culture - Final NO GROWTH IN 48 HOURS. Complete Imaging Last Impressions Abdomen/Pelvis CT 05/25/17 1428 Signed Impressions: Service Date/Time: Thursday, May 25, 2017 16:29 - CONCLUSION: 1. Severe small bowel and colonic distention to the level of the splenic flexure where there is a sharp transition zone. Obstructing neoplasm is not excluded. Willi Muñoz MD Foot X-Ray 05/25/17 140 Signed Impressions: Service Date/Time: Thursday, May 25, 2017 15:01 - CONCLUSION: Spiral fracture fifth metatarsal. Delfin Mittal MD FACR Chest X-Ray 05/25/171400 Signed Impressions: Service Date/Time: Thursday, May 25, 2017 14:59 - CONCLUSION: Moderate hyperinflation with pacer otherwise negative. Delfin Mittal MD FACR Objective Remarks GENERAL: Emaciated critically ill-appearing gentleman alert and oriented SKIN: Warm and dry. Poor skin turgor HEAD: Atraumatic. Normocephalic. EYES: Pupils equal and round. No conjunctival icterus. No injection or drainage. ENT: No nasal bleeding or discharge. Mucous membranes dry NECK: Trachea midline. Airway patent, unobstructed. CARDIOVASCULAR: Normal rate, regular rhythm. No JVD. RESPIRATORY: Clear to auscultation. Breath sounds equal bilaterally. GASTROINTESTINAL: Abdomen soft, non-tender, moderately distended. No guarding. BS active. MUSCULOSKELETAL: Extremities without clubbing, cyanosis, or edema. Well perfused. NEUROLOGICAL: Ill-appearing. Awake and alert. No gross focal/sensory deficits. Follows commands in all 4 extremities. A/P Assessment and Plan Assessment This is a 66-year-old male patient with a history of C. difficile colitis, fungal esophagitis, duodenal ulcer, erosive gastritis previously hospitalized , now presenting with most likely septic shock secondary to C. difficile colitis versus ischemic bowel from small bowel obstruction. Assessment: C. difficile colitis Possible Small bowel obstruction Anion gap metabolic acidosis Hypertension Diabetes mellitus Acute on chronic kidney injury Dehydration H/O [place] Cardiomyopathy Tonic systolic congestive heart failure History of third-degree block status post pacemaker insertion H/O Afib RVR (03/12) Cardioverted Dementia mild Diabetic peripheral neuropathy History of tobacco abuse History of alcohol abuse Dyslipidemia Plan Plan by systems: Neurologic: Neurochecks per ICU protocol Avoid sedative type medications Ofirmev IV every 6 hours when necessary Patient previously 14 shots of liquor per week, per old medical records (02/2017 ) 2 shots of Rum/day Monitor for signs of alcohol withdrawal Seizure precautions Continue donepezil 5 mg q hs, continue gabapentin Fluoxetine 40 mg /day Respiratory: Maintain O2 sat greater than 92% Bronchodilators every 4 hours when necessary for wheezing Currently O2 at 2 L nasal cannula H/O smoking 50 pack years. Counseled on smoking cessation Cardiovascular: Maintain MAP greater than 65mmHg Begin Levophed and Phenylephrine infusions to maintain MAP F/U Pacemaker interrogation Discontinue lisinopril BALZE inhibitor in the setting of acute kidney injury Hold carvedilol 3.125 BID secondary to hypotension ASA 81mg placed on hold for now Monitor CVP Echo from previous hospital 02/27/17 EF 53% (Previously 30%) Renal: Patient bolused x 3 liters Insert selby -- Strict I/Os - Generally edematous -- EDGARDO, nonoliguric now. Bolus with NS. Continue bicarb gtt at 150. FEN/GI: Monitor electrolytes and replete Replete calcium 2GM calcium gluconate Normal Saline 125 cc/hour Patient previously on atorvastatin Follow LFTs Heme/ID: Obtain blood, urine cultures Obtain serial lactate levels F/U LDH Obtain Procalcitonin level ID following Dr. Medina-IV Flagyl, by mouth Vanco 250mg QID F/U CEA levels Previously hospitalized 03/12/17 C. difficile colitis Endocrine: Glucose monitoring per ICU protocol medium dose regimen DC Levemir -- SSI Prophylaxis: GI Prophylaxis Protonix will change to famotidine in the setting of chronic kidney disease DVT Prophylaxis -- SCDs Heparin Lines: Peripheral IVs 2. Right radial A-line 05/26, right subclavian central line Overall impression: Patient remains critically ill with severe colitis and obstructive bowel pattern; appears to be a colon malignancy. Renal function deteriorating as fluid and electrolyte losses accumulate. Critical care 36 mins Michael Cornelius MD May 29, 2017 07:50
[2017-05-29] MEDS: INSULIN ASPART SUPPLEMENTAL SCALE SQ SCH ×4 (08:00→20:25)
[2017-05-29] MEDS: SODIUM CHLORIDE 0.9% FLUSH 10 ML FLUSH IV FLUSH SCH ×2 (09:00→20:25)
[2017-05-29] MEDS: FLUoxetine HCL 20 MG CAP PO SCH (09:01)
[2017-05-29] MEDS: VANCOMYCIN 500 MG VIAL (FOR ORAL USE ONLY) PO SCH ×4 (09:01→20:24)
[2017-05-29] MEDS: GABAPENTIN 100 MG CAP PO SCH ×3 (09:01→17:26)
[2017-05-29] MEDS: COLLAGENASE OINT 30 GM TUBE TOPICAL SCH (09:02)
[2017-05-29] MEDS: INSULIN DETEMIR 100 UNITS/ML VIAL SQ SCH ×2 (09:02→20:25)
--- NOTE | 2017-05-29 11:24 | HHI.GIFU ---
Subjective Remarks Resting in bed. Mild right sided abdominal discomfort, but overall feeling much better. (Caridad Bradford) Objective Vitals I&O Vital Signs Date Time Temp Pulse Resp B/P (MAP) Pulse Ox O2 Delivery O2 Flow Rate FiO2 05/29/17 08:59 100 Nasal Cannula 3.00 05/29/17 08:00 98.4 64 16 120/87 (98) 100 05/29/17 07:00 68 05/29/17 05:40 89 84/52 05/29/17 04:43 69 138/64 05/29/17 04:00 98.5 72 19 128/76 (93) 100 05/29/17 03:27 68 128/64 05/29/17 03:03 69 131/78 05/29/17 00:00 97.9 70 18 107/54 (71) 100 05/28/17 23:00 64 05/28/17 20:00 98.6 72 18 134/68 (90) 98 05/28/17 20:00 72 134/68 05/28/17 19:30 81 129/65 05/28/17 16:00 98.4 72 20 127/62 (83) 100 05/28/17 15:00 70 05/28/17 12:00 97.4 87 20 128/63 (84) 100 05/28/17 11:51 79 122/63 I/O 05/28/17 05/28/17 05/28/17 05/29/17 05/29/17 05/29/17 07:00 15:00 23:00 07:00 15:00 23:00 Intake Total 1822 ml 200 ml 1069 ml 2096 ml Output Total 1100 ml 2850 ml 2500 ml Balance 722 ml 200 ml -1781 ml -404 ml Intake Oral 120 ml 300 ml IV Total 1642 ml 200 ml 1069 ml 1796 ml Other 60 ml Output Urine Total 300 ml 550 ml 650 ml Stool Total 800 ml 2300 ml 1800 ml Gastric Drainage Total 50 ml Laboratory Laboratory Tests Test 05/28/17 18:00 05/28/17 20:45 05/29/17 04:20 Potassium Level 2.7 2.5 Urine Color YELLOW Urine Turbidity CLOUDY Urine pH 5.5 Urine Specific [place] 1.014 Urine Protein 30 Urine Glucose (UA) NEG Urine Ketones NEG Urine Occult Blood MOD Urine Nitrite NEG Urine Bilirubin NEG Urine Urobilinogen LESS THAN 2.0 Urine Leukocyte Esterase LARGE Urine RBC 44 Urine WBC 55 Urine Squamous Epithelial Cells <1 Urine Amorphous Sediment FEW Urine Bacteria FEW Microscopic Urinalysis Comment CATH-CULTURE IND Urine Eosinophils NONE SEEN Urine Osmolality 331 Urine Random Sodium 53 Urine Random Potassium 15 White Blood Count 20.3 Red Blood Count 4.06 Hemoglobin 11.4 Hematocrit 35.6 Mean Corpuscular Volume 87.7 Mean Corpuscular Hemoglobin 28.1 Mean Corpuscular Hemoglobin Concent 32.0 Red Cell Distribution Width 16.4 Platelet Count 171 Mean Platelet Volume 8.0 Neutrophils (%) (Auto) 90.6 Lymphocytes (%) (Auto) 5.6 Monocytes (%) (Auto) 2.9 Eosinophils (%) (Auto) 0.6 Basophils (%) (Auto) 0.3 Neutrophils # (Auto) 18.4 Lymphocytes # (Auto) 1.1 Monocytes # (Auto) 0.6 Eosinophils # (Auto) 0.1 Basophils # (Auto) 0.1 CBC Comment AUTO DIFF Differential Total Cells Counted 100 Neutrophils % (Manual) 84 Band Neutrophils % 4 Lymphocytes % 3 Monocytes % 3 Neutrophils # (Manual) 19.1 Metamyelocytes 5 Myelocytes 1 Differential Comment FINAL DIFF MANUAL Platelet Estimate NORMAL Platelet Morphology Comment NORMAL Blood Urea Nitrogen 76 Creatinine 4.23 Random Glucose 104 Total Protein 4.7 Albumin 1.3 Calcium Level 6.4 Alkaline Phosphatase 100 Aspartate Amino Transf (AST/SGOT) 16 Alanine Aminotransferase (ALT/SGPT) 10 Total Bilirubin 0.2 Sodium Level 143 Chloride Level 112 Carbon Dioxide Level 14.7 Anion Gap 16 Estimat Glomerular Filtration Rate 14 Protein Corrected Calcium 7.6 Date/Time Source Procedure Growth Status 05/29/17 00:55 Blood Peripheral Aerobic Blood Culture Pending Received 05/29/17 00:55 Blood Peripheral Anaerobic Blood Culture Pending Received 05/28/17 20:45 Urine Catheterized Urine Urine Culture Pending Received Imaging Last Impressions Enema w/Water Soluble 05/28/17 0000 Signed Impressions: Service Date/Time: , May 28, 2017 15:14 - CONCLUSION: Limited examination. However, there is a focal high grade stricture involving the junction between the transverse colon and descending colon at the level of the splenic flexure on the left side. Neoplastic disease is the primary consideration. John Francois MD Chest X-Ray 05/27/17 0600 Signed Impressions: Service Date/Time: Saturday, May 27, 2017 05:19 - CONCLUSION: Developing left lung infiltrates. Forrest Green MD Abdomen Ultrasound 05/27/17 0000 Signed Impressions: Service Date/Time: Saturday, May 27, 2017 16:31 - CONCLUSION: Discordant velocities in imaging findings. CT angiography may be of benefit. Delfin Mittal MD FACR Abdomen/Pelvis CT 05/25/17 1428 Signed Impressions: Service Date/Time: Thursday, May 25, 2017 16:29 - CONCLUSION: 1. Severe small bowel and colonic distention to the level of the splenic flexure where there is a sharp transition zone. Obstructing neoplasm is not excluded. Willi Muñoz MD Foot X-Ray 05/25/17 1401 Signed Impressions: Service Date/Time: Thursday, May 25, 2017 15:01 - CONCLUSION: Spiral fracture fifth metatarsal. Delfin Mittal MD FACR Physical Exam HEENT: Normocephalic; atraumatic; no jaundice. CHEST: CTA CARDIAC: RRR ABDOMEN: Soft, nondistended, mild right sided tenderness; no hepatosplenomegaly ; bowel sounds are present in all four quadrants. NGT to liws. Rectal bag with large amount of dark brown liquid stool. SKIN: Normal; no rash; no jaundice. MORTUARY TECHNICIAN: No focal deficits; alert and oriented times three. (Caridad Bradford EMERGENCY ROOM PHYSICIAN ASSISTANT) Assessment and Plan Plan ASSESSMENT - Abd pain, N/V/D. CT abdomen and pelvis (05/25/17)---> Severe small bowel and colonic distention to the level of the splenic flexure where this is a sharp transition zone. Obstructing neoplasm is not excluded. S/P Colonoscopy (05/27/17)---> 1. Stricture splenic flexure-scope could not be passed, multiple ulcers in sigmoid,descending, rectum-biopsy fro splenic flexure, rectum 2. Retroflexed views revealed internal hemorrhoids 3. Retroflexed views revealed small internal hemorrhoids. Pathology pending. Pt has CDiff. ? ischemia. Unable to have CTA secondary to EDGARDO. US Abdomen (05/27/17)---> Discordant velocities in imaging findings, CTA may be of benefit. CEA 3.0, Ca 19-9 28.3. Gastrografin Enema (05/28/17)---> Limited examination. However there is a focal high grade stricture involving the junction between the transverse colon and descending colon at the level of the splenic flexure on the left side. Neoplastic disease is the primary consideration. NGT to LIWS. Rectal bag with large amount liquid stool. GS following. Clinically, he is improved today. Less abdominal tenderness. Flagyl, Oral vanco. - CDiff Colitis, Epid 027. Oral Vanco, Flagyl. - Severe sepsis, leukocytosis. Leukocytosis- 20.3. Flagyl, oral vanco. - Anemia. 11.4/35.6 - EDGARDO. Creat 4.23, GFR 14. - CMP, CHF, DM, Hyperlipidemia per attending. PLAN - NPO - Await pathology - NGT to LIWS - Cont. Oral Vanco - Cont. Flagyl - Monitor labs - Supportive care - Consider CTA once kidney issues resolve, ? >50% stenosis in the celiac, sma - Consider repeat colonoscopy with ultraslim or pediatric scope, timing to be determined after pathology from colonoscopy resulted. - Further recommendations to follow based on results of above - Pt seen and examined by Dr. Ray and myself and this note is written on his behalf (Caridad Bradford) Physician Comments Seen and examined, plan as above. Biopsies pending . Will follow up with you . Further recommendations to follow. (Robby Ray MD) Caridad Bradford May 29, 2017 11:24 Robby Ray MD May 29, 2017 11:32
--- NOTE | 2017-05-29 13:32 | HHI.PR ---
Subjective Subjective Notes Resting in bed; cognition appears improved today Tolerating clear liquids Objective Vitals/I&O Vital Signs Date Time Temp Pulse Resp B/P (MAP) Pulse Ox O2 Delivery O2 Flow Rate FiO2 05/29/17 12:00 98.6 72 23 122/58 (79) 100 05/29/17 08:59 Nasal Cannula 3.00 Labs Laboratory Tests Test 05/28/17 18:00 05/28/17 20:45 05/29/17 04:20 Potassium Level 2.7 2.5 Urine Color YELLOW Urine Turbidity CLOUDY Urine pH 5.5 Urine Specific [place] 1.014 Urine Protein 30 Urine Glucose (UA) NEG Urine Ketones NEG Urine Occult Blood MOD Urine Nitrite NEG Urine Bilirubin NEG Urine Urobilinogen LESS THAN 2.0 Urine Leukocyte Esterase LARGE Urine RBC 44 Urine WBC 55 Urine Squamous Epithelial Cells <1 Urine Amorphous Sediment FEW Urine Bacteria FEW Microscopic Urinalysis Comment CATH-CULTURE IND Urine Eosinophils NONE SEEN Urine Osmolality 331 Urine Random Sodium 53 Urine Random Potassium 15 White Blood Count 20.3 Red Blood Count 4.06 Hemoglobin 11.4 Hematocrit 35.6 Mean Corpuscular Volume 87.7 Mean Corpuscular Hemoglobin 28.1 Mean Corpuscular Hemoglobin Concent 32.0 Red Cell Distribution Width 16.4 Platelet Count 171 Mean Platelet Volume 8.0 Neutrophils (%) (Auto) 90.6 Lymphocytes (%) (Auto) 5.6 Monocytes (%) (Auto) 2.9 Eosinophils (%) (Auto) 0.6 Basophils (%) (Auto) 0.3 Neutrophils # (Auto) 18.4 Lymphocytes # (Auto) 1.1 Monocytes # (Auto) 0.6 Eosinophils # (Auto) 0.1 Basophils # (Auto) 0.1 CBC Comment AUTO DIFF Differential Total Cells Counted 100 Neutrophils % (Manual) 84 Band Neutrophils % 4 Lymphocytes % 3 Monocytes % 3 Neutrophils # (Manual) 19.1 Metamyelocytes 5 Myelocytes 1 Differential Comment FINAL DIFF MANUAL Platelet Estimate NORMAL Platelet Morphology Comment NORMAL Blood Urea Nitrogen 76 Creatinine 4.23 Random Glucose 104 Total Protein 4.7 Albumin 1.3 Calcium Level 6.4 Alkaline Phosphatase 100 Aspartate Amino Transf (AST/SGOT) 16 Alanine Aminotransferase (ALT/SGPT) 10 Total Bilirubin 0.2 Sodium Level 143 Chloride Level 112 Carbon Dioxide Level 14.7 Anion Gap 16 Estimat Glomerular Filtration Rate 14 Protein Corrected Calcium 7.6 Date/Time Source Procedure Growth Status 05/29/17 00:55 Blood Peripheral Aerobic Blood Culture Pending Received 05/29/17 00:55 Blood Peripheral Anaerobic Blood Culture Pending Received 05/28/17 20:45 Urine Catheterized Urine Urine Culture Pending Received Cardiovascular: Regular Lungs: Clear Abdomen: Other (abdomen flat; RLQ tenderness with palpation although improved from yesterday ) Extremities: No edema A/P Assessment and Plan 66 year old male with diarrhea; diffuse abdominal distention---? neoplastic mass -Continue clear liquids -Clmap NGT -GGE--- high grade stricutre between transverse colon and descending colon -Will need to be re-scoped at some point to eval again -Follow WBC -CCM following -Nephrology following -GI following ---s/p colonoscopy -ID following---- + c-diff---on Oral Vanco and Flagyl Attending Statement patient seen at bedside ok for clears possible re scope by gi pt with stricture but high stool output Attestation The exam, history, and the medical decision-making described in the above note were completed with the assistance of the mid-level provider. I reviewed and agree with the findings presented. I attest that I had a [id number] encounter with the patient on the same day, and personally performed and documented my assessment and findings in the medical record. Marianne Torres May 29, 2017 13:32 Michael Soares MD May 30, 2017 04:31
[2017-05-29] MEDS: CEFEPIME INJ 2,000 MG in SODIUM CHLORIDE 0.9% INJ 100 ML IV SCH (14:58)
--- NOTE | 2017-05-29 16:39 | HHI.IDPN ---
Subjective Subjective Remarks Patient is a 66-year-old male, presented to the hospital complaining of sudden onset of abdominal pain, nausea and vomiting. His vomiting apparently had a feculent smell. There was mention that he has not had a bowel movement for about 2-3 days. On presentation his WBC was up to 20,000. His lactic acid is elevated. CT of the abdomen and pelvis with IV contrast, but no oral contrast showing possible obstruction. Since admission patient has had significant volume of liquid stool. He was transferred to the ICU for hypotension and closer monitoring. He has not been febrile. He still complaining of abdominal pain. Patient is not a good historian. Got history from the patient's , as well as from old records. Patient was apparently in the hospital in [place] back in January 2017. At that time he had diarrhea, and workup showed evidence of colitis on the left side of his colon. There was no evidence of ischemic colitis by CTA, no IBD. During that hospitalization he also had atrial fibrillation with RVR, and required cardioversion. Infectious disease consultation has been requested to evaluate the patient. Notes reviewed Has large volume liquid stool Temps ok On levophed Creatinine worsening WBC higher BC with Bacteroides Colonoscopy findings noted Path report pending C diff toxin (+) One BC with GNR Persistent acidosis Antibiotics I attest that I obtained, updated or reviewed the home and current medications. PO Vancomycin IV Flagyl cefepime Current Medications Medications (Trade) Dose Ordered Sig/Tricia Route Start Time Stop Time Status Last Admin (NS Flush) 2 ml UNSCH PRN IV FLUSH 05/25/17 17:45 (NS Flush) 2 ml BID IV FLUSH 05/25/17 21:00 05/29/17 09:00 (Zofran Inj) 4 mg Q6H PRN IVP 05/25/17 17:45 05/28/17 17:42 (Heparin Inj) 5,000 units Q12H SQ 05/25/17 18:00 05/29/17 05:39 (Narcan Inj) 0.4 mg UNSCH PRN IV PUSH 05/25/17 17:45 (Milk Of Magnesia Liq) 30 ml Q12H PRN PO 05/25/17 17:45 (Senokot) 17.2 mg Q12H PRN PO 05/25/17 17:45 (Dulcolax Supp) 10 mg DAILY PRN RECTAL 05/25/17 17:45 (Lactulose Liq) 30 ml DAILY PRN PO 05/25/17 17:45 (Coreg) 3.125 mg BID PO 05/26/17 09:00 Future Hold (Aricept) 5 mg HS PO 05/26/17 21:00 05/28/17 19:30 (PROzac) 40 mg DAILY PO 05/26/17 09:00 05/29/17 09:01 (D50w (Vial) Inj) 50 ml UNSCH PRN IV PUSH 05/25/17 23:00 05/28/17 12:26 (Glucagon Inj) 1 mg UNSCH PRN OTHER 05/25/17 23:00 (NovoLOG SUPPLEMENTAL SCALE) 1 ACHS SLIDING SCALE SQ 05/26/17 08:00 05/27/17 17:00 (Duoneb Neb) 1 ampule Q4HR NEB PRN INH 05/26/17 11:45 Phenylephrine HCl 40 mg/Dextrose 500 ml @ 30 mls/hr TITRATE PRN IV 05/26/17 13:00 05/26/17 12:45 (Brethine Inj) 1 mg UNSCH PRN SQ 05/26/17 14:30 Norepinephrine Bitartrate 4 mg/ Sodium Chloride 250 ml @ 7.5 mls/hr TITRATE PRN IV 05/26/17 15:00 05/28/17 19:30 (Neurontin) 100 mg TID PO 05/26/17 18:00 05/29/17 12:27 (Santyl Oint) 1 applic DAILY TOPICAL 05/27/17 09:00 05/29/17 09:02 Metronidazole 100 ml @ 100 mls/hr Q6HR IV 05/27/17 13:00 05/29/17 11:30 (VANCOMYCIN for oral use only) 500 mg QID PO 05/27/17 13:00 05/29/17 12:28 (Pepcid Inj) 10 mg Q12H IV PUSH 05/27/17 16:00 05/29/17 15:01 (Levemir Inj) 10 units Q12HR SQ 05/27/17 21:00 05/29/17 09:02 Cefepime HCl 2000 mg/Sodium Chloride 100 ml @ 200 mls/hr Q24H IV 05/28/17 15:00 05/29/17 14:58 Sodium Bicarbonate 150 meq/Sterile Water 1,000 ml @ 150 mls/hr Q6H40M IV 05/28/17 19:00 05/29/17 15:04 Lines RSC TLC Past Medical History 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 difficile colitis RLE fracture, required a cast Past Surgical History R knee surgery CT for PTX Allergies: Coded Allergies: No Known Allergies (Unverified Adverse Reaction, Unknown, 05/25/17) Objective . Vital Signs Date Time Temp Pulse Resp B/P (MAP) Pulse Ox O2 Delivery O2 Flow Rate FiO2 05/29/17 16:00 98.4 87 18 128/69 (88) 95 05/29/17 15:00 80 05/29/17 12:00 98.6 72 23 122/58 (79) 100 05/29/17 08:59 100 Nasal Cannula 3.00 05/29/17 08:00 98.4 64 16 120/87 (98) 100 05/29/17 07:00 68 05/29/17 05:40 89 84/52 05/29/17 04:43 69 138/64 05/29/17 04:00 98.5 72 19 128/76 (93) 100 05/29/17 03:27 68 128/64 05/29/17 03:03 69 131/78 05/29/17 00:00 97.9 70 18 107/54 (71) 100 05/28/17 23:00 64 05/28/17 20:00 98.6 72 18 134/68 (90) 98 05/28/17 20:00 72 134/68 05/28/17 19:30 81 129/65 05/29/17 05/29/17 05/30/17 15:00 23:00 07:00 Intake Total 1100 ml Balance 1100 ml IV Total 1100 ml . Laboratory Tests Test 05/28/17 04:20 05/29/17 04:20 White Blood Count 18.7 TH/MM3 20.3 TH/MM3 Red Blood Count 3.89 MIL/MM3 4.06 MIL/MM3 Hemoglobin 10.9 GM/DL 11.4 GM/DL Hematocrit 34.6 % 35.6 % Mean Corpuscular Volume 89.1 FL 87.7 FL Mean Corpuscular Hemoglobin 28.1 PG 28.1 PG Mean Corpuscular Hemoglobin Concent 31.6 % 32.0 % Red Cell Distribution Width 16.3 % 16.4 % Platelet Count 286 TH/MM3 171 TH/MM3 Mean Platelet Volume 7.6 FL 8.0 FL Neutrophils (%) (Auto) 88.6 % 90.6 % Lymphocytes (%) (Auto) 6.4 % 5.6 % Monocytes (%) (Auto) 4.5 % 2.9 % Eosinophils (%) (Auto) 0.1 % 0.6 % Basophils (%) (Auto) 0.4 % 0.3 % Neutrophils # (Auto) 16.6 TH/MM3 18.4 TH/MM3 Lymphocytes # (Auto) 1.2 TH/MM3 1.1 TH/MM3 Monocytes # (Auto) 0.8 TH/MM3 0.6 TH/MM3 Eosinophils # (Auto) 0.0 TH/MM3 0.1 TH/MM3 Basophils # (Auto) 0.1 TH/MM3 0.1 TH/MM3 CBC Comment AUTO DIFF AUTO DIFF Differential Total Cells Counted 100 100 Neutrophils % (Manual) 75 % 84 % Band Neutrophils % 17 % 4 % Lymphocytes % 4 % 3 % Monocytes % 3 % 3 % Neutrophils # (Manual) 17.4 TH/MM3 19.1 TH/MM3 Myelocytes 1 % 1 % Nucleated Red Blood Cells 1 /100 WBC Differential Comment FINAL DIFF MANUAL FINAL DIFF MANUAL Platelet Estimate NORMAL NORMAL Platelet Morphology Comment NORMAL NORMAL [place] Cells 1+ Metamyelocytes 5 % Laboratory Tests Test 05/28/17 06:28 05/28/17 18:00 05/29/17 04:20 Blood Urea Nitrogen 80 MG/DL 76 MG/DL Creatinine 4.16 MG/DL 4.23 MG/DL Random Glucose 53 MG/DL 104 MG/DL Total Protein 4.7 GM/DL 4.7 GM/DL Calcium Level 6.0 MG/DL 6.4 MG/DL Sodium Level 144 MEQ/L 143 MEQ/L Potassium Level 2.4 MEQ/L 2.7 MEQ/L 2.5 MEQ/L Chloride Level 112 MEQ/L 112 MEQ/L Carbon Dioxide Level 16.7 MEQ/L 14.7 MEQ/L Anion Gap 15 MEQ/L 16 MEQ/L Estimat Glomerular Filtration Rate 14 ML/MIN 14 ML/MIN Protein Corrected Calcium 7.1 MG/DL 7.6 MG/DL Albumin 1.3 GM/DL Alkaline Phosphatase 100 U/L Aspartate Amino Transf (AST/SGOT) 16 U/L Alanine Aminotransferase (ALT/SGPT) 10 U/L Total Bilirubin 0.2 MG/DL Microbiology Date/Time Source Procedure Growth Status 05/29/17 00:55 Blood Peripheral Aerobic Blood Culture Pending Received 05/29/17 00:55 Blood Peripheral Anaerobic Blood Culture Pending Received 05/29/17 00:50 Blood Peripheral Aerobic Blood Culture Pending Received 05/29/17 00:50 Blood Peripheral Anaerobic Blood Culture Pending Received 05/28/17 20:45 Urine Catheterized Urine Urine Culture - Preliminary NO GROWTH IN 24 HOURS. Resulted Imaging RADIOLOGY STUDIES/FILMS REVIEWED Chest X-Ray 05/27/17 0600 Signed Impressions: Service Date/Time: Saturday, May 27, 2017 05:19 - CONCLUSION: Developing left lung infiltrates. Forrest Green MD Abdomen Ultrasound 05/27/17 0000 Signed Impressions: Service Date/Time: Thursday, May 27, 2017 16:31 - CONCLUSION: Discordant velocities in imaging findings. CT angiography may be of benefit. Delfin Mittal MD FACR Abdomen/Pelvis CT 05/25/17 1428 Signed Impressions: Service Date/Time: Thursday, May 25, 2017 16:29 - CONCLUSION: 1. Severe small bowel and colonic distention to the level of the splenic flexure where there is a sharp transition zone. Obstructing neoplasm is not excluded. Willi Muñoz MD Foot X-Ray 05/25/17 1401 Signed Impressions: Service Date/Time: Thursday, May 25, 2017 15:01 - CONCLUSION: Spiral fracture fifth metatarsal. Delfin Mittal MD FACR Chest X-Ray 05/25/17 1401 Signed Impressions: Service Date/Time: Thursday, May 25, 2017 14:59 - CONCLUSION: Moderate hyperinflation with pacer otherwise negative. Delfin Mittal MD FACR Physical Exam GENERAL: Awake and alert, not in respiratory distress. SKIN: Cool and dry. No generalized rash, no ecchymoses and no evidence of embolic lesions. HEAD: Atraumatic. Normocephalic. No temporal wasting, or tenderness. EYES: [place] conjunctiva. No petechia or hemorrhage. Pupils equal, round and reactive to light. Extraocular movements full and intact. No scleral icterus. No injection or drainage. EARS, NOSE AND THROAT: Nose without bleeding or purulent nasal discharge. No sinus tenderness. Mucous membranes pink and moist. Poor dentition. No oral thrush. NECK: Trachea midline. Supple and not tender, no meningeal signs CARDIOVASCULAR: Regular rate and rhythm. No murmurs, rubs or gallops heard. Pacer in L upper chest, with no evidence of infection RESPIRATORY: Clear to auscultation. Breath sounds equal bilaterally. No rales , wheezing or rhonchi. Decreased at bases ABDOMEN: Soft, mildly distended, with tenderness, in mid to upper quadrants. Bowel sounds present and hypoactive, no guarding. No rebound. No organomegaly. EXTREMITIES: No clubbing, cyanosis, or edema. No calf tenderness. Well perfused and warm. A small ulcer in R medial heel, with no evidence of infection NEUROLOGICAL: Awake and alert Cranial nerves grossly intact. Motor grossly within normal limits. PSYCHIATRIC: Normal affect, calm and cooperative. LINE: No evidence of infection Has stool collection bag, has liquid stool, green Assessment & Plan Remarks IMPRESSION Sepsis on presentation, now with shock, has N/V and diarrhea - ?Recurrent C diff colitis, ?ischemic bowel (previous CTA ok per records, ?due to low flow state from hypotension) GNR in one BC ?Bowel obstruction, last colonoscopy no mention of colon mass Prob with CKD, with worsening due to hypotension RECOMMENDATION Continue empiric C diff Rx : IV Flagyl and po Vancomycin Continue t Cefepime Follow C/S Follow CBC Follow path report Renal following Monitor progress Smiley Medina MD May 29, 2017 16:39
--- NOTE | 2017-05-29 17:02 | HHI.NPPN ---
Subjective History of Present Illness 66-year-old male with past medical history of diabetes mellitus for more than 10 years, history of chronic kidney disease and acute kidney injury off and on, hypertension, history of hypertension, chronic obstructive pulmonary disease, AV block with post pacemaker placement who came to the hospital with complaint of abdominal pain, distension and nausea, vomiting with diarrhea. I was called to see the patient because of elevated BUN and creatinine. The patient has a creatinine of 1.5 on presentation which has been getting worse and now is 4.1. Additional Remarks Patient is alert, asking to advance the diet, no SOB. Review of Systems General Constitutional: Fatigue Cardiovascular Cardiac: DUARTE Gastrointestinal Gastrointestinal: Abdominal Pain Objective Data Data 05/29/17 05/30/17 19:00 07:00 Intake Total 1100 ml Balance 1100 ml IV Total 1100 ml Vital Signs Date Time Temp Pulse Resp B/P (MAP) Pulse Ox O2 Delivery O2 Flow Rate FiO2 05/29/17 16:00 98.4 87 18 128/69 (88) 95 05/29/17 15:00 80 05/29/17 12:00 98.6 72 23 122/58 (79) 100 05/29/17 08:59 100 Nasal Cannula 3.00 05/29/17 08:00 98.4 64 16 120/87 (98) 100 05/29/17 07:00 68 05/29/17 05:40 89 84/52 05/29/17 04:43 69 138/64 05/29/17 04:00 98.5 72 19 128/76 (93) 100 05/29/17 03:27 68 128/64 05/29/17 03:03 69 131/78 05/29/17 00:00 97.9 70 18 107/54 (71) 100 05/28/17 23:00 64 05/28/17 20:00 98.6 72 18 134/68 (90) 98 05/28/17 20:00 72 134/68 05/28/17 19:30 81 129/65 -: 05/29/17 0420 05/29/17 0420 Microbiology 05/29/17 Aerobic Blood Culture, Received Pending 05/29/17 Anaerobic Blood Culture, Received Pending 05/29/17 Aerobic Blood Culture, Received Pending 05/29/17 Anaerobic Blood Culture, Received Pending 05/28/17 Urine Culture - Preliminary, Resulted NO GROWTH IN 24 HOURS. Physical Exam General Appearance: No Acute Distress, Comfortable Eyes Eye Exam: Pupils Equal Pulmonary Resp Exam: Breath Sounds Equal, No Distress, Rhonchi, Decreased Bases, Diminished Breath Sounds Cardiology CV Exam: Regular, Normal Sinus Rhythm Gastrointestinal/Abdomen GI Exam: Soft, Non-Tender, Bowel Sounds Present, Non-Distended Extremeties Extremities Exam: Trace Edema Neurologic Neuro Exam: Alert, Awake, Oriented Psychiatric Psych Exam: Appropriate Responses Assessment/Plan Assessment Summary: EDGARDO/Acute Renal Failure Electrolyte Assessment: Hypokalemia, Metabolic Acidosis Problem List: (1) Hypokalemia ICD Codes: E87.6 - Hypokalemia (2) Metabolic acidosis ICD Codes: E87.2 - Acidosis (3) Nausea and vomiting in adult ICD Codes: R11.2 - Nausea with vomiting, unspecified Status: Acute (4) HTN (hypertension) ICD Codes: I10 - Essential (primary) hypertension Status: Chronic (5) DM (diabetes mellitus) ICD Codes: E11.9 - Type 2 diabetes mellitus without complications Status: Chronic (6) Hyperglycemia ICD Codes: R73.9 - Hyperglycemia, unspecified; L08.9 - Local infection of the skin and subcutaneous tissue, unspecified Status: Acute (7) Dehydration ICD Codes: E86.0 - Dehydration Status: Acute (8) EDGARDO (acute kidney injury) ICD Codes: N17.9 - Acute kidney failure, unspecified Status: Acute Plan Patient most likely has chronic kidney disease, and now develop EDGARDO. Has minimal proteinuria, K is low, and has metabolic acidosis. Has large amount of liquid stool. Urine K is low, has non renal loss. K was replaced. On IVF with NaHco3. Creatinine increase slightly. Non oliguric, has adequate urine out put. Avoid Nephrotoxins, follow the urine out put and BMP. Jerrod Noel MD May 29, 2017 17:01
[2017-05-29] MEDS: DEXTROSE 50% IN WATER 50 ML VIAL(D50) IV PUSH PRN (17:20)
[2017-05-29] MEDS: DONEPEZIL HCL 5 MG TAB PO SCH (20:24)
[2017-05-29] MEDS: ONDANSETRON HCL 4 MG/2 ML VIAL IVP PRN (20:50)
[2017-05-30] VITALS (10 sets, daily range): BP systolic 100–131; BP diastolic 50–61; PULSE 63–75; RESP 16–25; TEMP 98.4–99; O2SAT 95–100
[2017-05-30] MEDS: SODIUM BICARBONATE 8.4% INJ 150 MEQ in WATER STERILE FOR INJ 850 ML IV SCH (03:32)
[2017-05-30 04:16] LABS: AUTOMATED NEUTROPHIL # 15.2 TH/MM3 (1.8-7.7); BASOPHIL # 0.1 TH/MM3 (0-0.2); BASOPHIL % 0.3 % (0.0-2.0); EOSINOPHIL # 0.2 TH/MM3 (0-0.4); EOSINOPHIL % 1.4 % (0.0-4.0); HEMATOCRIT 31.9 % (39.0-51.0); LYMPH % 5.5 % (9.0-44.0); LYMPHOCYTE # 0.9 TH/MM3 (1.0-4.8); MEAN CELL VOLUME 86.5 FL (80.0-100.0); MEAN CORPUSCULAR HEMOGLOBIN 28.5 PG (27.0-34.0); MONO % 0.2 % (0.0-8.0); NEUT % 92.6 % (16.0-70.0); PLATELET COUNT 97 TH/MM3 (150-450); RED BLOOD COUNT 3.69 MIL/MM3 (4.50-5.90); RED CELL DISTRIBUTION WIDTH 15.4 % (11.6-17.2); WHITE BLOOD COUNT 16.5 TH/MM3 (4.0-11.0)
[2017-05-30 04:31] LABS: HEMO FLAGS AUTO DIFF
[2017-05-30] MEDS: HEPARIN SODIUM - SQ 10,000 UNITS/ML VIAL SQ SCH ×2 (04:50→17:04)
[2017-05-30] MEDS: metroNIDAZOLE 500 MG INJ 100 ML IV SCH ×4 (04:50→22:21)
[2017-05-30] MEDS: FAMOTIDINE 20 MG/2 ML VIAL IV PUSH SCH ×2 (04:50→16:23)
[2017-05-30 05:02] LABS: BICARBONATE 26.4 MEQ/L (21.0-32.0); CALCIUM-PROTEIN CORRECTED 7.6 MG/DL (8.5-10.1); TOTAL BILIRUBIN ADULT 0.3 MG/DL (0.2-1.0)
[2017-05-30 05:07] LABS: POTASSIUM 2.1 MEQ/L (3.5-5.1)
[2017-05-30 06:19] LABS: BANDS 8 % (0-6); METAMYELOCYTES 5 % (0-1); MYELOCYTES 5 % (0-0); NEUTROPHIL # MANUAL DIFF 15.7 TH/MM3 (1.8-7.7); POLYS (SEG NEUTROPHILS) 77 % (16-70); SCAN/DIFF FINAL DIFF MANUAL; WBC DIFF SAMPLE 100
[2017-05-30 06:20] LABS: DOHLE BODIES PRESENT (NONE SEEN); PLATELET ESTIMATE SMEAR LOW (NORMAL); PLATELET MORPHOLOGY NORMAL (NORMAL)
[2017-05-30] MEDS ORDERED: POTASSIUM CHLOR 40 MEQ PREMIX 100 ML IV ONE (06:30)
--- NOTE | 2017-05-30 07:47 | HHI.CCPN ---
Subjective Remarks/Hospital Course This is a a 66 year old male with a history of diabetes mellitus type 1, diabetic ulcer, 3rd degree heart block S/p pacemaker placement that presented to the emergency department on 05/25/2017 due to sudden onset of abdominal pain , nausea and vomiting. He has not had a bowel movement in 3 days. On arrival, patient has leukocytosis with WBC count 20.1K, lactic acid 4.7. CT abdomen pelvis shows small bowel and colonic distention with transition point at the splenic flexure. CT abdomen and pelvis also indicated possibility of neoplasm causing obstruction. Patient denies any headache, chest pain, cough, shortness of breath. denies any Dysuria and hematuria. Of note, patient has lost 20-30 lbs in the recent months. The patient was admitted to the medical floor, throughout the night the patient condition deteriorated became hemodynamically unstable, systolic blood pressures in the 80s. Critical care medicine was consulted. The patient was transferred to the [facility], upon presentation the patient was noted to have a blood pressure 79/50, HR 90's the patient was bolused 2 L of normal saline IV fluid right regarding A-line was placed the patient was placed on low dose phenylephrine infusion 20 mcgs. Consent was obtained and a right subclavian central line was placed the patient received a third liter IV fluids labs are pending at this time. Of note patient previously at [facility] in [place] when noted to have biopsies records not obtained at this time reveals abnormal pathology unknown. CEA levels pending. 05/27: Requires FMS for corrosive diarrhea. Plan for colonoscopy today; looking specifically for tumor at splenic flexure. Renal function continues to deteriorate. 05/28: Contrast study reveals high grade stricture at splenic flexure - likely a malignancy. 05/29: Continued metabolic acidosis from sepsis, dehydration from GI losses. Bacteroides in blood. Renal function deteriorating but urine output finally increasing. Continue bicarb gtt. 05/30: Base deficit corrected now after hydration and bicarb infusion. Profuse liters of watery diarrhea continues. Renal function improving after aggressive hydration. He remains very thirsty. Objective Vital Signs Date Time Temp Pulse Resp B/P (MAP) Pulse Ox O2 Delivery O2 Flow Rate FiO2 05/30/17 04:00 98.8 66 20 131/61 (84) 96 05/29/17 20:40 Nasal Cannula 2.00 Intake and Output 05/30/17 05/30/17 05/31/17 08:00 16:00 00:00 Intake Total 2000 ml Output Total 2600 ml Balance -600 ml Result Diagram: 05/30/17 0405 05/30/17 0405 Other Results Microbiology Date/Time Source Procedure Growth Status 05/28/17 20:45 Urine Catheterized Urine Urine Culture - Final NO GROWTH IN 48 HOURS. Complete Imaging Last Impressions Abdomen/Pelvis CT 05/25/17 1428 Signed Impressions: Service Date/Time: Thursday, May 25, 2017 16:29 - CONCLUSION: 1. Severe small bowel and colonic distention to the level of the splenic flexure where there is a sharp transition zone. Obstructing neoplasm is not excluded. Willi Muñoz MD Foot X-Ray 05/25/17 1401 Signed Impressions: Service Date/Time: Thursday, May 25, 2017 15:01 - CONCLUSION: Spiral fracture fifth metatarsal. Delfin Mittal MD FACR Chest X-Ray 05/25/17 1401 Signed Impressions: Service Date/Time: Thursday, May 25, 2017 14:59 - CONCLUSION: Moderate hyperinflation with pacer otherwise negative. Delfin Mittal MD FACR Objective Remarks GENERAL: Emaciated, critically ill-appearing gentleman alert and oriented SKIN: Warm and dry. Poor skin turgor HEAD: Atraumatic. Normocephalic. EYES: Pupils equal and round. No conjunctival icterus. No injection or drainage. ENT: No nasal bleeding or discharge. Mucous membranes dry NECK: Trachea midline. Airway patent, unobstructed. CARDIOVASCULAR: Normal rate, regular rhythm. No JVD. RESPIRATORY: Clear to auscultation. Breath sounds equal bilaterally. No adventitious sounds. GASTROINTESTINAL: Abdomen soft, non-tender, moderately distended. No guarding. BS active. MUSCULOSKELETAL: Extremities without clubbing, cyanosis, or edema. Well perfused. NEUROLOGICAL: Ill-appearing. Awake and alert. No gross focal/sensory deficits. Follows commands in all 4 extremities. A/P Assessment and Plan Assessment This is a 66-year-old male patient with a history of C. difficile colitis, fungal esophagitis, duodenal ulcer, erosive gastritis previously hospitalized , now presenting with septic shock secondary to C. difficile colitis versus ischemic bowel from small bowel obstruction. Assessment: C. difficile colitis Possible Small bowel obstruction Anion gap metabolic acidosis Hypertension Diabetes mellitus Acute on chronic kidney injury Dehydration H/O WI Cardiomyopathy Tonic systolic congestive heart failure History of third-degree block status post pacemaker insertion H/O Afib RVR (03/12) Cardioverted Dementia mild Diabetic peripheral neuropathy History of tobacco abuse History of alcohol abuse Dyslipidemia Plan Plan by systems: Neurologic: Neurochecks per ICU protocol Avoid sedative type medications Ofirmev IV every 6 hours when necessary Patient previously 14 shots of liquor per week, per old medical records (02/2017 ) 2 shots of Rum/day Monitor for signs of alcohol withdrawal Seizure precautions Continue donepezil 5 mg q hs, continue gabapentin Fluoxetine 40 mg /day Respiratory: Maintain O2 sat greater than 92% Bronchodilators every 4 hours when necessary for wheezing Currently O2 at 2 L nasal cannula H/O smoking 50 pack years. Counseled on smoking cessation Cardiovascular: Maintain MAP greater than 65mmHg Begin Levophed and Phenylephrine infusions to maintain MAP F/U Pacemaker interrogation Discontinue lisinopril BLAZE inhibitor in the setting of acute kidney injury Hold carvedilol 3.125 BID secondary to hypotension ASA 81mg placed on hold for now Monitor CVP Echo from previous hospital 02/27/17 EF 53% (Previously 30%) Renal: Patient bolused x 3 liters Insert selby -- Strict I/Os - Generally edematous -- EDGARDO, nonoliguric now. Bolus with NS. Hold bicarb gtt at 150. -- Add 40 KCL to iv fluid. FEN/GI: Monitor electrolytes and replete Replete calcium 2GM calcium gluconate Normal Saline 125 cc/hour Patient previously on atorvastatin Follow LFTs Heme/ID: Obtain blood, urine cultures Obtain serial lactate levels F/U LDH Obtain Procalcitonin level ID following Dr. Medina-IV Flagyl, by mouth Vanco 250mg QID F/U CEA levels Previously hospitalized 03/12/17 C. difficile colitis Endocrine: Glucose monitoring per ICU protocol medium dose regimen DC Levemir -- SSI Prophylaxis: GI Prophylaxis Protonix will change to famotidine in the setting of chronic kidney disease DVT Prophylaxis -- SCDs Heparin Lines: Peripheral IVs 2. Right radial A-line 05/26, right subclavian central line Overall impression: Patient remains critically ill with severe colitis and obstructive bowel pattern; appears to be a colon malignancy at the splenic flexure but biopsies benign. Renal function deteriorating as fluid and electrolyte losses accumulate. Critical care 38 mins Michael Cornelius MD May 30, 2017 07:47
[2017-05-30] MEDS: INSULIN ASPART SUPPLEMENTAL SCALE SQ SCH ×4 (08:00→20:18)
[2017-05-30] MEDS ORDERED: SODIUM CHLOR 0.9% 1000 ML INJ 1,000 ML IV ONE ×2 (08:00→09:00)
[2017-05-30] MEDS: INSULIN DETEMIR 100 UNITS/ML VIAL SQ SCH ×2 (08:26→21:00)
[2017-05-30] MEDS: NS + KCL 40 MEQ INJ 1,000 ML IV SCH ×3 (08:32→22:21)
[2017-05-30] MEDS: COLLAGENASE OINT 30 GM TUBE TOPICAL SCH (08:32)
[2017-05-30] MEDS: GABAPENTIN 100 MG CAP PO SCH ×3 (08:32→17:04)
[2017-05-30] MEDS: VANCOMYCIN 500 MG VIAL (FOR ORAL USE ONLY) PO SCH ×4 (08:32→19:38)
[2017-05-30] MEDS: FLUoxetine HCL 20 MG CAP PO SCH (08:32)
[2017-05-30] MEDS: SODIUM CHLORIDE 0.9% FLUSH 10 ML FLUSH IV FLUSH SCH ×2 (08:32→19:39)
[2017-05-30] MEDS: CEFEPIME INJ 2,000 MG in SODIUM CHLORIDE 0.9% INJ 100 ML IV SCH (14:14)
--- NOTE | 2017-05-30 14:57 | HHI.NPPN ---
Subjective History of Present Illness 66-year-old male with past medical history of diabetes mellitus for more than 10 years, history of chronic kidney disease and acute kidney injury off and on, hypertension, history of hypertension, chronic obstructive pulmonary disease, AV block with post pacemaker placement who came to the hospital with complaint of abdominal pain, distension and nausea, vomiting with diarrhea. I was called to see the patient because of elevated BUN and creatinine. The patient has a creatinine of 1.5 on presentation which has been getting worse and now is 4.1. Additional Remarks Patient is alert, asking to advance the diet, no SOB, with NGT, clinically same. Review of Systems General Constitutional: Fatigue Cardiovascular Cardiac: DUARTE Gastrointestinal Gastrointestinal: Abdominal Pain Objective Data Data 05/30/17 05/31/17 19:00 07:00 Intake Total 2100 ml Balance 2100 ml IV Total 2100 ml Vital Signs Date Time Temp Pulse Resp B/P (MAP) Pulse Ox O2 Delivery O2 Flow Rate FiO2 05/30/17 12:00 98.4 70 21 128/58 (81) 100 05/30/17 08:51 100 Nasal Cannula 2.00 05/30/17 08:00 98.6 74 25 112/56 (74) 96 05/30/17 07:00 71 05/30/17 04:00 98.8 66 20 131/61 (84) 96 05/30/17 00:00 99.0 74 18 100/50 (67) 95 05/29/17 23:00 74 05/29/17 20:40 100 Nasal Cannula 2.00 05/29/17 20:00 99.1 76 21 101/52 (68) 99 Automatic Cuff 05/29/17 16:00 98.4 87 18 128/69 (88) 95 05/29/17 15:00 80 -: 05/30/17 0405 05/30/17 0405 Physical Exam General Appearance: No Acute Distress, Comfortable Eyes Eye Exam: Pupils Equal Pulmonary Resp Exam: Breath Sounds Equal, No Distress, Rhonchi, Decreased Bases, Diminished Breath Sounds Cardiology CV Exam: Regular, Normal Sinus Rhythm Gastrointestinal/Abdomen GI Exam: Soft, Non-Tender, Bowel Sounds Present, Non-Distended Extremeties Extremities Exam: Trace Edema Neurologic Neuro Exam: Alert, Awake, Oriented Psychiatric Psych Exam: Appropriate Responses Assessment/Plan Assessment Summary: EDGARDO/Acute Renal Failure Electrolyte Assessment: Hypokalemia, Metabolic Acidosis Problem List: (1) Hypokalemia ICD Codes: E87.6 - Hypokalemia (2) Metabolic acidosis ICD Codes: E87.2 - Acidosis (3) Nausea and vomiting in adult ICD Codes: R11.2 - Nausea with vomiting, unspecified Status: Acute (4) HTN (hypertension) ICD Codes: I10 - Essential (primary) hypertension Status: Chronic (5) DM (diabetes mellitus) ICD Codes: E11.9 - Type 2 diabetes mellitus without complications Status: Chronic (6) Hyperglycemia ICD Codes: R73.9 - Hyperglycemia, unspecified; L08.9 - Local infection of the skin and subcutaneous tissue, unspecified Status: Acute (7) Dehydration ICD Codes: E86.0 - Dehydration Status: Acute (8) EDGARDO (acute kidney injury) ICD Codes: N17.9 - Acute kidney failure, unspecified Status: Acute Plan Patient most likely has chronic kidney disease, and now develop EDGARDO. Has minimal proteinuria, K is low, and has metabolic acidosis. Has large amount of liquid stool. Urine K is low, has non renal loss. On IVF with NaHco3. Non oliguric, has adequate urine out put. Avoid Nephrotoxins, follow the urine out put and BMP. Creatinine is slightly better, k is still low, on supplement. Problem Qualifiers (1) HTN (hypertension): Qualified Codes: I10 - Essential (primary) hypertension Jerrod Noel MD May 30, 2017 14:57
--- NOTE | 2017-05-30 16:23 | HHI.PR ---
cc: Conner Roblero MD Subjective Subjective Notes DAILY PROGRESS NOTE FOR SURGICAL ATTENDING, DR. CONNER ROBLERO I feel good No nausea or vomiting Can I please eat something I'm very hungry Objective Vitals/I&O Vital Signs Date Time Temp Pulse Resp B/P (MAP) Pulse Ox O2 Delivery O2 Flow Rate FiO2 05/30/17 15:00 69 05/30/17 12:00 98.4 21 128/58 (81) 100 05/30/17 08:51 Nasal Cannula 2.00 Labs Laboratory Tests Test 05/30/17 04:05 White Blood Count 16.5 Red Blood Count 3.69 Hemoglobin 10.5 Hematocrit 31.9 Mean Corpuscular Volume 86.5 Mean Corpuscular Hemoglobin 28.5 Mean Corpuscular Hemoglobin Concent 33.0 Red Cell Distribution Width 15.4 Platelet Count 97 Mean Platelet Volume 7.8 Neutrophils (%) (Auto) 92.6 Lymphocytes (%) (Auto) 5.5 Monocytes (%) (Auto) 0.2 Eosinophils (%) (Auto) 1.4 Basophils (%) (Auto) 0.3 Neutrophils # (Auto) 15.2 Lymphocytes # (Auto) 0.9 Monocytes # (Auto) 0.0 Eosinophils # (Auto) 0.2 Basophils # (Auto) 0.1 CBC Comment AUTO DIFF Differential Total Cells Counted 100 Neutrophils % (Manual) 77 Band Neutrophils % 8 Lymphocytes % 3 Monocytes % 2 Neutrophils # (Manual) 15.7 Metamyelocytes 5 Myelocytes 5 Differential Comment FINAL DIFF MANUAL Dohle Bodies PRESENT Platelet Estimate LOW Platelet Morphology Comment NORMAL Blood Urea Nitrogen 64 Creatinine 3.83 Random Glucose 66 Total Protein 4.2 Albumin 1.1 Calcium Level 6.2 Alkaline Phosphatase 122 Aspartate Amino Transf (AST/SGOT) 18 Alanine Aminotransferase (ALT/SGPT) 7 Total Bilirubin 0.3 Sodium Level 141 Potassium Level 2.1 Chloride Level 105 Carbon Dioxide Level 26.4 Anion Gap 10 Estimat Glomerular Filtration Rate 16 Lactic Acid Level 0.6 Protein Corrected Calcium 7.6 Date/Time Source Procedure Growth Status 05/29/17 00:55 Blood Peripheral Aerobic Blood Culture - Preliminary NO GROWTH IN 1 DAY Resulted 05/29/17 00:55 Blood Peripheral Anaerobic Blood Culture - Preliminary NO GROWTH IN 1 DAY Resulted 05/28/17 20:45 Urine Catheterized Urine Urine Culture - Final NO GROWTH IN 48 HOURS. Complete Radiology Last Impressions Enema w/Water Soluble 05/28/17 0000 Signed Impressions: Service Date/Time: May 15:14 - CONCLUSION: Limited examination. However, there is a focal high grade stricture involving the junction between the transverse colon and descending colon at the level of the splenic flexure on the left side. Neoplastic disease is the primary consideration. John Francois MD Chest X-Ray 05/27/17 0600 Signed Impressions: Service Date/Time: Saturday, May 27, 2017 05:19 - CONCLUSION: Developing left lung infiltrates. Forrest Green MD Abdomen Ultrasound 05/27/17 0000 Signed Impressions: Service Date/Time: Saturday, May 27, 2017 16:31 - CONCLUSION: Discordant velocities in imaging findings. CT angiography may be of benefit. Delfin Mittal MD FACR Abdomen/Pelvis CT 05/25/17 1428 Signed Impressions: Service Date/Time: Thursday, May 25, 2017 16:29 - CONCLUSION: 1. Severe small bowel and colonic distention to the level of the splenic flexure where there is a sharp transition zone. Obstructing neoplasm is not excluded. Willi Muñoz MD Foot X-Ray 05/25/17 1401 Signed Impressions: Service Date/Time: Thursday, May 25, 2017 15:01 - CONCLUSION: Spiral fracture fifth metatarsal. Delfin Mittal MD FACR Cardiovascular: Regular Lungs: Clear Abdomen: Non-distended, Non-tender, Other (fair amount of output of stool) Extremities: No edema, Perfused A/P Problem List: (1) C. difficile diarrhea ICD Codes: A04.72 - Enterocolitis due to Clostridium difficile, not specified as recurrent Status: Acute (2) Left foot infection ICD Codes: L08.9 - Local infection of the skin and subcutaneous tissue, unspecified Status: Chronic (3) Diabetic infection of left foot ICD Codes: E11.69 - Type 2 diabetes mellitus with other specified complication ; L08.9 - Local infection of the skin and subcutaneous tissue, unspecified Status: Chronic (4) DKA (diabetic ketoacidoses) ICD Codes: E13.10 - Other specified diabetes mellitus with ketoacidosis without coma Status: Resolved (5) DM (diabetes mellitus) ICD Codes: E11.9 - Type 2 diabetes mellitus without complications Status: Chronic (6) HTN (hypertension) ICD Codes: I10 - Essential (primary) hypertension Status: Chronic Assessment and Plan 66-year-old gentleman who was admitted with C. difficile. This appears to be clearing and improving. However he does have a stricture in the transverse colon that being evaluated by gastroenterology. At this time he' s not having any NG tube output will DC NG tube and start by mouth. Reports that GI will plan colonoscopy in the near future to evaluate stricture Advance diet DC NG tube Attending Statement NOTE FOR SURGICAL ATTENDING, DR. CONNER ROBLERO I attest that I had a [id number] encounter with the patient on the same day, and personally performed and documented my assessment and findings in the medical record. The following services were provided during this hospital visit: Chart data review, vital sign assessments/reviewing monitor data Review of consultations notes if present. Medication orders/review and/or management Ordering and/or reviewing lab tests Ordering and/or interpreting/reviewing x-rays and/or diagnostic studies Care of the patient and discussion of the patient with the care team Documentation time To help prompt me to consider important information that might be impacting today's encounter and assessment, information from prior notes written by myself or my colleagues may have been "brought forward/copy and pasted" into today's note. Problem Qualifiers (1) HTN (hypertension): Qualified Codes: I10 - Essential (primary) hypertension Conner Roblero MD May 30, 2017 16:23
--- NOTE | 2017-05-30 16:31 | HHI.GIFU ---
Subjective Remarks Pt resting in bed. NGT just removed. Denies n/v, abd pain. (Meka [place]) Objective Vitals I&O Vital Signs Date Time Temp Pulse Resp B/P (MAP) Pulse Ox O2 Delivery O2 Flow Rate FiO2 05/30/17 16:00 98.5 63 16 112/58 (76) 100 05/30/17 15:00 69 05/30/17 12:00 98.4 70 21 128/58 (81) 100 05/30/17 08:51 100 Nasal Cannula 2.00 05/30/17 08:00 98.6 74 25 112/56 (74) 96 05/30/17 07:00 71 05/30/17 04:00 98.8 66 20 131/61 (84) 96 05/30/17 00:00 99.0 74 18 100/50 (67) 95 05/29/17 23:00 74 05/29/17 20:40 100 Nasal Cannula 2.00 05/29/17 20:00 99.1 76 21 101/52 (68) 99 Automatic Cuff I/O 05/29/17 05/29/17 05/29/17 05/30/17 05/30/17 05/30/17 07:00 15:00 23:00 07:00 15:00 23:00 Intake Total 2096 ml 1100 ml 2500 ml 2000 ml 2100 ml Output Total 2500 ml 3100 ml 2600 ml Balance -404 ml 1100 ml -600 ml -600 ml 2100 ml Intake Oral 300 ml IV Total 1796 ml 1100 ml 2500 ml 2000 ml 2100 ml Output Urine Total 650 ml 800 ml 600 ml Stool Total 1800 ml 2300 ml 2000 ml Gastric Drainage Total 50 ml Laboratory Laboratory Tests Test 05/30/17 04:05 White Blood Count 16.5 Red Blood Count 3.69 Hemoglobin 10.5 Hematocrit 31.9 Mean Corpuscular Volume 86.5 Mean Corpuscular Hemoglobin 28.5 Mean Corpuscular Hemoglobin Concent 33.0 Red Cell Distribution Width 15.4 Platelet Count 97 Mean Platelet Volume 7.8 Neutrophils (%) (Auto) 92.6 Lymphocytes (%) (Auto) 5.5 Monocytes (%) (Auto) 0.2 Eosinophils (%) (Auto) 1.4 Basophils (%) (Auto) 0.3 Neutrophils # (Auto) 15.2 Lymphocytes # (Auto) 0.9 Monocytes # (Auto) 0.0 Eosinophils # (Auto) 0.2 Basophils # (Auto) 0.1 CBC Comment AUTO DIFF Differential Total Cells Counted 100 Neutrophils % (Manual) 77 Band Neutrophils % 8 Lymphocytes % 3 Monocytes % 2 Neutrophils # (Manual) 15.7 Metamyelocytes 5 Myelocytes 5 Differential Comment FINAL DIFF MANUAL Dohle Bodies PRESENT Platelet Estimate LOW Platelet Morphology Comment NORMAL Blood Urea Nitrogen 64 Creatinine 3.83 Random Glucose 66 Total Protein 4.2 Albumin 1.1 Calcium Level 6.2 Alkaline Phosphatase 122 Aspartate Amino Transf (AST/SGOT) 18 Alanine Aminotransferase (ALT/SGPT) 7 Total Bilirubin 0.3 Sodium Level 141 Potassium Level 2.1 Chloride Level 105 Carbon Dioxide Level 26.4 Anion Gap 10 Estimat Glomerular Filtration Rate 16 Lactic Acid Level 0.6 Protein Corrected Calcium 7.6 Date/Time Source Procedure Growth Status 05/29/17 00:55 Blood Peripheral Aerobic Blood Culture - Preliminary NO GROWTH IN 1 DAY Resulted 05/29/17 00:55 Blood Peripheral Anaerobic Blood Culture - Preliminary NO GROWTH IN 1 DAY Resulted 05/28/17 20:45 Urine Catheterized Urine Urine Culture - Final NO GROWTH IN 48 HOURS. Complete Physical Exam HEENT: Normocephalic; atraumatic; no jaundice. CHEST: CTA CARDIAC: RRR ABDOMEN: Soft, nondistended,nontender; no hepatosplenomegaly; bowel sounds are present in all four quadrants. SKIN: Normal; no rash; no jaundice. COUTURE ALTERATIONS DRESSMAKER: No focal deficits; alert and oriented times three. (Meka Vail [facility]) Assessment and Plan Plan ASSESSMENT - Abd pain, N/V/D. CT abdomen and pelvis (05/25/17)---> Severe small bowel and colonic distention to the level of the splenic flexure where this is a sharp transition zone. Obstructing neoplasm is not excluded. S/P Colonoscopy (05/27/17)---> 1. Stricture splenic flexure-scope could not be passed, multiple ulcers in sigmoid,descending, rectum-biopsy fro splenic flexure, rectum 2. Retroflexed views revealed internal hemorrhoids 3. Retroflexed views revealed small internal hemorrhoids. Pathology pending. Pt has CDiff. ? ischemia. Unable to have CTA secondary to EDGARDO. US Abdomen (05/27/17)---> Discordant velocities in imaging findings, CTA may be of benefit. CEA 3.0, Ca 19-9 28.3. Gastrografin Enema (05/28/17)---> Limited examination. However there is a focal high grade stricture involving the junction between the transverse colon and descending colon at the level of the splenic flexure on the left side. Neoplastic disease is the primary consideration. splenic flex bx benign, rectum bx acutely and chronically inflamed granulation tsu. GS following. Clinically, he is improved. Flagyl, Oral vanco. - CDiff Colitis, Epid 027. Oral Vanco, Flagyl. - Severe sepsis, leukocytosis. Leukocytosis- 20.3. Flagyl, oral vanco. - Anemia. 11.4/35.6 - EDGARDO. Creat 4.23, GFR 14. - CMP, CHF, DM, Hyperlipidemia per attending. 05/30/17 doing better. NGT out. soft diet per GS. no pain, n/v. HH relatively stable. bx rectum inflamed granulation tissue, splenic flexure bx benign PLAN - diet per GS - Cont. Oral Vanco - Cont. Flagyl - Monitor labs - Supportive care - Consider CTA once kidney issues resolve, ? >50% stenosis in the celiac, sma - Consider repeat colonoscopy with ultraslim or pediatric scope, timing to be determined - Pt seen and examined by Dr. Ray and myself and this note is written on his behalf (Meka [place]) Physician Comments Plan as above, biopsies unremarkable, will plan re-scoping with pediatrics scope Thursday or Thursday. (Robby Ray MD) Meka [place] May 30, 2017 16:30 Robby Ray MD May 30, 2017 17:34
[2017-05-30] MEDS: DONEPEZIL HCL 5 MG TAB PO SCH (19:38)
--- NOTE | 2017-05-30 20:16 | HHI.PR ---
Addendum to Inpatient Note Additional Information ID X cover - pt seen around 1830 full note to follow Zulema Mason MD May 30, 2017 20:16
--- NOTE | 2017-05-30 22:12 | HHI.IDPN ---
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 difficile colitis RLE fracture, required a cast Past Surgical History R knee surgery CT for PTX Allergies: Coded Allergies: No Known Allergies (Unverified Adverse Reaction, Unknown, 05/25/17) Objective . Vital Signs Date Time Temp Pulse Resp B/P (MAP) Pulse Ox O2 Delivery O2 Flow Rate FiO2 05/30/17 20:00 98.6 68 20 128/58 (81) 97 05/30/17 16:00 98.5 63 16 112/58 (76) 100 05/30/17 15:00 69 05/30/17 12:00 98.4 70 21 128/58 (81) 100 05/30/17 08:51 100 Nasal Cannula 2.00 05/30/17 08:00 98.6 74 25 112/56 (74) 96 05/30/17 07:00 71 05/30/17 04:00 98.8 66 20 131/61 (84) 96 05/30/17 00:00 99.0 74 18 100/50 (67) 95 05/29/17 23:00 74 05/30/17 05/30/17 05/31/17 15:00 23:00 07:00 Intake Total 2100 ml 6550 ml Output Total 2900 ml Balance 2100 ml 3650 ml Intake Oral 750 ml IV Total 2100 ml 5800 ml Output Urine Total 650 ml Stool Total 2250 ml . Laboratory Tests Test 05/29/17 04:20 05/30/17 04:05 White Blood Count 20.3 TH/MM3 16.5 TH/MM3 Red Blood Count 4.06 MIL/MM3 3.69 MIL/MM3 Hemoglobin 11.4 GM/DL 10.5 GM/DL Hematocrit 35.6 % 31.9 % Mean Corpuscular Volume 87.7 FL 86.5 FL Mean Corpuscular Hemoglobin 28.1 PG 28.5 PG Mean Corpuscular Hemoglobin Concent 32.0 % 33.0 % Red Cell Distribution Width 16.4 % 15.4 % Platelet Count 171 TH/MM3 97 TH/MM3 Mean Platelet Volume 8.0 FL 7.8 FL Neutrophils (%) (Auto) 90.6 % 92.6 % Lymphocytes (%) (Auto) 5.6 % 5.5 % Monocytes (%) (Auto) 2.9 % 0.2 % Eosinophils (%) (Auto) 0.6 % 1.4 % Basophils (%) (Auto) 0.3 % 0.3 % Neutrophils # (Auto) 18.4 TH/MM3 15.2 TH/MM3 Lymphocytes # (Auto) 1.1 TH/MM3 0.9 TH/MM3 Monocytes # (Auto) 0.6 TH/MM3 0.0 TH/MM3 Eosinophils # (Auto) 0.1 TH/MM3 0.2 TH/MM3 Basophils # (Auto) 0.1 TH/MM3 0.1 TH/MM3 CBC Comment AUTO DIFF AUTO DIFF Differential Total Cells Counted 100 100 Neutrophils % (Manual) 84 % 77 % Band Neutrophils % 4 % 8 % Lymphocytes % 3 % 3 % Monocytes % 3 % 2 % Neutrophils # (Manual) 19.1 TH/MM3 15.7 TH/MM3 Metamyelocytes 5 % 5 % Myelocytes 1 % 5 % Differential Comment FINAL DIFF MANUAL FINAL DIFF MANUAL Platelet Estimate NORMAL LOW Platelet Morphology Comment NORMAL NORMAL Dohle Bodies PRESENT Laboratory Tests Test 05/29/17 04:20 05/30/17 04:05 Blood Urea Nitrogen 76 MG/DL 64 MG/DL Creatinine 4.23 MG/DL 3.83 MG/DL Random Glucose 104 MG/DL 66 MG/DL Total Protein 4.7 GM/DL 4.2 GM/DL Albumin 1.3 GM/DL 1.1 GM/DL Calcium Level 6.4 MG/DL 6.2 MG/DL Alkaline Phosphatase 100 U/L 122 U/L Aspartate Amino Transf (AST/SGOT) 16 U/L 18 U/L Alanine Aminotransferase (ALT/SGPT) 10 U/L 7 U/L Total Bilirubin 0.2 MG/DL 0.3 MG/DL Sodium Level 143 MEQ/L 141 MEQ/L Potassium Level 2.5 MEQ/L 2.1 MEQ/L Chloride Level 112 MEQ/L 105 MEQ/L Carbon Dioxide Level 14.7 MEQ/L 26.4 MEQ/L Anion Gap 16 MEQ/L 10 MEQ/L Estimat Glomerular Filtration Rate 14 ML/MIN 16 ML/MIN Protein Corrected Calcium 7.6 MG/DL 7.6 MG/DL Lactic Acid Level 0.6 mmol/L Microbiology Date/Time Source Procedure Growth Status 05/29/17 00:55 Blood Peripheral Aerobic Blood Culture - Preliminary NO GROWTH IN 1 DAY Resulted 05/29/17 00:55 Blood Peripheral Anaerobic Blood Culture - Preliminary NO GROWTH IN 1 DAY Resulted 05/29/17 00:50 Blood Peripheral Aerobic Blood Culture - Preliminary NO GROWTH IN 1 DAY Resulted 05/29/17 00:50 Blood Peripheral Anaerobic Blood Culture - Preliminary NO GROWTH IN 1 DAY Resulted 05/28/17 20:45 Urine Catheterized Urine Urine Culture - Final NO GROWTH IN 48 HOURS. Complete Imaging Last Impressions Enema w/Water Soluble 05/28/17 0000 Signed Impressions: Service Date/Time: May 15:14 - CONCLUSION: Limited examination. However, there is a focal high grade stricture involving the junction between the transverse colon and descending colon at the level of the splenic flexure on the left side. Neoplastic disease is the primary consideration. John Francois MD Chest X-Ray 05/27/17 0600 Signed Impressions: Service Date/Time: Saturday, May 27, 2017 05:19 - CONCLUSION: Developing left lung infiltrates. Forrest Green MD Abdomen Ultrasound 05/27/17 0000 Signed Impressions: Service Date/Time: Saturday, May 27, 2017 16:31 - CONCLUSION: Discordant velocities in imaging findings. CT angiography may be of benefit. Delfin Mittal MD FACR Abdomen/Pelvis CT 05/25/17 1428 Signed Impressions: Service Date/Time: Thursday, May 25, 2017 16:29 - CONCLUSION: 1. Severe small bowel and colonic distention to the level of the splenic flexure where there is a sharp transition zone. Obstructing neoplasm is not excluded. Willi Muñoz MD Foot X-Ray 05/25/17 1401 Signed Impressions: Service Date/Time: Thursday, May 25, 2017 15:01 - CONCLUSION: Spiral fracture fifth metatarsal. Delfin Mittal MD FACR Physical Exam GENERAL: Awake and alert, not in respiratory distress. SKIN: Cool and dry. No generalized rash, no ecchymoses and no evidence of embolic lesions. HEAD: Atraumatic. Normocephalic. No temporal wasting, or tenderness. EYES: [place] conjunctiva. No petechia or hemorrhage. Pupils equal, round and reactive to light. Extraocular movements full and intact. No scleral icterus. No injection or drainage. EARS, NOSE AND THROAT: Nose without bleeding or purulent nasal discharge. No sinus tenderness. Mucous membranes pink and moist. Poor dentition. No oral thrush. NECK: Trachea midline. Supple and not tender, no meningeal signs CARDIOVASCULAR: Regular rate and rhythm. No murmurs, rubs or gallops heard. Pacer in L upper chest, with no evidence of infection RESPIRATORY: Clear to auscultation. Breath sounds equal bilaterally. No rales , wheezing or rhonchi. Decreased at bases ABDOMEN: Soft, not distended, no tenderness, . Bowel sounds present and hypoactive, no guarding. No rebound. No organomegaly. dignishield in palce with brown liquid stool EXTREMITIES: No clubbing, cyanosis, or edema. No calf tenderness. Well perfused and warm. A small ulcer in R medial heel, with no evidence of infection NEUROLOGICAL: Awake and alert Cranial nerves grossly intact. Motor grossly within normal limits. PSYCHIATRIC: Normal affect, calm and cooperative. LINE: No evidence of infection Has stool collection bag, has liquid stool, green Assessment & Plan Remarks IMPRESSION Sepsis on presentation, with shock, has N/V and diarrhea: clinciallyn improving - ?Recurrent C diff colitis, ?ischemic bowel (previous CTA ok per records, ?due to low flow state from hypotension) - high volume diarrhea Iveth frag bacteremia ?Bowel obstruction, last colonoscopy no mention of colon mass Prob with CKD, with worsening due to hypotension RECOMMENDATION Continue empiric C diff Rx : IV Flagyl and po Vancomycin cont Cefepime for now Follow C/S Follow CBC Renal following Monitor progress Zulema Mason MD May 30, 2017 22:12
[2017-05-31] VITALS (9 sets, daily range): BP systolic 93–124; BP diastolic 53–64; PULSE 61–78; RESP 14–24; TEMP 98.2–98.6; O2SAT 91–97
[2017-05-31] MEDS: HEPARIN SODIUM - SQ 10,000 UNITS/ML VIAL SQ SCH ×2 (04:03→17:20)
[2017-05-31] MEDS: FAMOTIDINE 20 MG/2 ML VIAL IV PUSH SCH ×2 (04:04→15:25)
[2017-05-31] MEDS: metroNIDAZOLE 500 MG INJ 100 ML IV SCH ×3 (04:04→17:19)
[2017-05-31 06:15] LABS: AUTOMATED NEUTROPHIL # 18.3 TH/MM3 (1.8-7.7); BASOPHIL # 0.1 TH/MM3 (0-0.2); BASOPHIL % 0.3 % (0.0-2.0); EOSINOPHIL % 0.1 % (0.0-4.0); HEMATOCRIT 34.3 % (39.0-51.0); LYMPH % 6.4 % (9.0-44.0); LYMPHOCYTE # 1.3 TH/MM3 (1.0-4.8); MEAN CELL VOLUME 90.2 FL (80.0-100.0); MEAN CORPUSCULAR HEMOGLOBIN 28.6 PG (27.0-34.0); MEAN CORPUSCULAR HGB CONC 31.7 % (32.0-36.0); MONO % 4.1 % (0.0-8.0); NEUT % 89.1 % (16.0-70.0); PLATELET COUNT 77 TH/MM3 (150-450); RED CELL DISTRIBUTION WIDTH 16.4 % (11.6-17.2); WHITE BLOOD COUNT 20.6 TH/MM3 (4.0-11.0)
[2017-05-31 06:19] LABS: HEMO FLAGS AUTO DIFF
[2017-05-31 06:38] LABS: BICARBONATE 16.1 MEQ/L (21.0-32.0); CALCIUM-PROTEIN CORRECTED 7.6 MG/DL (8.5-10.1); MAGNESIUM 2.1 MG/DL (1.5-2.5); TOTAL BILIRUBIN ADULT 0.4 MG/DL (0.2-1.0)
[2017-05-31 06:39] LABS: POTASSIUM 6.5 MEQ/L (3.5-5.1)
[2017-05-31] MEDS: INSULIN ASPART SUPPLEMENTAL SCALE SQ SCH ×4 (06:40→19:55)
--- NOTE | 2017-05-31 07:38 | HHI.CCPN ---
Subjective Remarks/Hospital Course This is a a 66 year old male with a history of diabetes mellitus type 1, diabetic ulcer, 3rd degree heart block S/p pacemaker placement that presented to the emergency department on 05/25/2017 due to sudden onset of abdominal pain , nausea and vomiting. He has not had a bowel movement in 3 days. On arrival, patient has leukocytosis with WBC count 20.1K, lactic acid 4.7. CT abdomen pelvis shows small bowel and colonic distention with transition point at the splenic flexure. CT abdomen and pelvis also indicated possibility of neoplasm causing obstruction. Patient denies any headache, chest pain, cough, shortness of breath. denies any Dysuria and hematuria. Of note, patient has lost 20-30 lbs in the recent months. The patient was admitted to the medical floor, throughout the night the patient condition deteriorated became hemodynamically unstable, systolic blood pressures in the 80s. Critical care medicine was consulted. The patient was transferred to the [facility] [place] [facility], upon presentation the patient was noted to have a blood pressure 79/50, HR 90's the patient was bolused 2 L of normal saline IV fluid right regarding A-line was placed the patient was placed on low dose phenylephrine infusion 20 mcgs. Consent was obtained and a right subclavian central line was placed the patient received a third liter IV fluids labs are pending at this time. Of note patient previously at [facility] in [place] when noted to have biopsies records not obtained at this time reveals abnormal pathology unknown. CEA levels pending. 05/27: Requires FMS for corrosive diarrhea. Plan for colonoscopy today; looking specifically for tumor at splenic flexure. Renal function continues to deteriorate. 05/28: Contrast study reveals high grade stricture at splenic flexure - likely a malignancy. 05/29: Continued metabolic acidosis from sepsis, dehydration from GI losses. Bacteroides in blood. Renal function deteriorating but urine output finally increasing. Continue bicarb gtt. 05/30: Base deficit corrected now after hydration and bicarb infusion. Profuse liters of watery diarrhea continues. Renal function improving after aggressive hydration. He remains very thirsty. 05/31: Large fluid losses from 4+ liter watery diarrhea, matched with intravenous replacement. Elevated K this morning likely an error, recheck, adjust K replacement. Objective Vital Signs Date Time Temp Pulse Resp B/P (MAP) Pulse Ox O2 Delivery O2 Flow Rate FiO2 05/31/17 04:00 98.2 64 20 121/60 (80) 93 05/30/17 08:51 Nasal Cannula 2.00 Intake and Output 05/31/17 05/31/17 06/01/17 08:00 16:00 00:00 Intake Total 2524 ml Output Total 3050 ml Balance -526 ml Result Diagram: 05/31/17 0550 05/31/17 0550 Other Results Microbiology Date/Time Source Procedure Growth Status 05/28/17 20:45 Urine Catheterized Urine Urine Culture - Final NO GROWTH IN 48 HOURS. Complete Imaging Last Impressions Abdomen/Pelvis CT 05/25/17 1428 Signed Impressions: Service Date/Time: Thursday, May 25, 2017 16:29 - CONCLUSION: 1. Severe small bowel and colonic distention to the level of the splenic flexure where there is a sharp transition zone. Obstructing neoplasm is not excluded. Willi Muñoz MD Foot X-Ray 05/25/17 1401 Signed Impressions: Service Date/Time: Thursday, May 25, 2017 15:01 - CONCLUSION: Spiral fracture fifth metatarsal. Delfin Mittal MD FACR Chest X-Ray 05/25/17 1401 Signed Impressions: Service Date/Time: Thursday, May 25, 2017 14:59 - CONCLUSION: Moderate hyperinflation with pacer otherwise negative. Delfin Mittal MD FACR Objective Remarks GENERAL: Emaciated, ill-appearing gentleman alert and oriented SKIN: Warm and dry. Poor skin turgor HEAD: Atraumatic. Normocephalic. EYES: Pupils equal and round. No conjunctival icterus. No injection or drainage. ENT: No nasal bleeding or discharge. Mucous membranes dry NECK: Trachea midline. Airway patent, unobstructed. CARDIOVASCULAR: Normal rate, regular rhythm. No JVD. NL S1S2, no m,r. RESPIRATORY: Clear to auscultation. Breath sounds equal bilaterally. No adventitious sounds. GASTROINTESTINAL: Abdomen soft, non-tender, moderately distended. No guarding. BS active. MUSCULOSKELETAL: Extremities without clubbing, cyanosis, or edema. Well perfused. NEUROLOGICAL: Ill-appearing. Awake and alert. No gross focal/sensory deficits. Follows commands in all 4 extremities. A/P Assessment and Plan Assessment This is a 66-year-old male patient with a history of C. difficile colitis, fungal esophagitis, duodenal ulcer, erosive gastritis previously hospitalized , now presenting with septic shock secondary to C. difficile colitis versus ischemic bowel from small bowel obstruction. Assessment: C. difficile colitis Possible Small bowel obstruction Anion gap metabolic acidosis Hypertension Diabetes mellitus Acute on chronic kidney injury Dehydration H/O DE Cardiomyopathy Tonic systolic congestive heart failure History of third-degree block status post pacemaker insertion H/O Afib RVR (03/12) Cardioverted Dementia mild Diabetic peripheral neuropathy History of tobacco abuse History of alcohol abuse Dyslipidemia Plan Plan by systems: Neurologic: Avoid sedative type medications Ofirmev IV every 6 hours when necessary Patient previously 14 shots of liquor per week, per old medical records (02/2017 ) 2 shots of Rum/day Monitor for signs of alcohol withdrawal Seizure precautions Continue donepezil 5 mg q hs, continue gabapentin Fluoxetine 40 mg /day Respiratory: Maintain O2 sat greater than 92% Bronchodilators every 4 hours when necessary for wheezing Currently O2 at 2 L nasal cannula H/O smoking 50 pack years. Counseled on smoking cessation Cardiovascular: Maintain MAP greater than 65mmHg Begin Levophed and Phenylephrine infusions to maintain MAP F/U Pacemaker interrogation Discontinue lisinopril BLAZE inhibitor in the setting of acute kidney injury Hold carvedilol 3.125 BID secondary to hypotension ASA 81mg placed on hold for now Monitor CVP Echo from previous hospital 02/27/17 EF 53% (Previously 30%) Renal: Insert selby -- Strict I/Os - Generally edematous -- EDGARDO, nonoliguric now. Bolus with NS. Hold bicarb gtt at 150. -- Add 40 KCL to iv fluid. -- Replace GI losses with NS boluses. FEN/GI: Monitor electrolytes and replete Replete calcium 2GM calcium gluconate Normal Saline 125 cc/hour Patient previously on atorvastatin Follow LFTs Heme/ID: F/U LDH Obtain Procalcitonin level ID following Dr. Medina-IV Flagyl, by mouth Vanco 250mg QID F/U CEA levels Previously hospitalized 03/12/17 C. difficile colitis Endocrine: Glucose monitoring per ICU protocol medium dose regimen DC Levemir -- SSI Prophylaxis: GI Prophylaxis Protonix will change to famotidine in the setting of chronic kidney disease DVT Prophylaxis -- SCDs Heparin Lines: Peripheral IVs 2. Right radial A-line 05/26, right subclavian central line Overall impression: Patient with severe colitis and obstructive bowel pattern; appears to be a colon malignancy at the splenic flexure but biopsies benign. Renal function improving as fluid and electrolyte losses are replaced. Michael Cornelius MD May 31, 2017 07:38
[2017-05-31] MEDS: COLLAGENASE OINT 30 GM TUBE TOPICAL SCH (09:00)
[2017-05-31] MEDS: SODIUM CHLORIDE 0.9% FLUSH 10 ML FLUSH IV FLUSH SCH ×2 (09:00→19:33)
[2017-05-31 09:07] LABS: BANDS 27 % (0-6); METAMYELOCYTES 3 % (0-1); MYELOCYTES 1 % (0-0); NEUTROPHIL # MANUAL DIFF 19.2 TH/MM3 (1.8-7.7); POLYS (SEG NEUTROPHILS) 62 % (16-70); WBC DIFF SAMPLE 100
[2017-05-31 09:13] LABS: PLATELET ESTIMATE SMEAR LOW (NORMAL); PLATELET MORPHOLOGY NORMAL (NORMAL); SCAN/DIFF FINAL DIFF MANUAL
[2017-05-31] MEDS: SODIUM BICARBONATE 8.4% INJ 150 MEQ in WATER STERILE FOR INJ 850 ML IV SCH ×3 (09:17→22:40)
[2017-05-31] MEDS: FLUoxetine HCL 20 MG CAP PO SCH (09:31)
[2017-05-31] MEDS: INSULIN DETEMIR 100 UNITS/ML VIAL SQ SCH ×2 (09:31→19:33)
[2017-05-31] MEDS: GABAPENTIN 100 MG CAP PO SCH ×4 (09:31→19:33)
[2017-05-31] MEDS: NS + KCL 40 MEQ INJ 1,000 ML IV SCH ×2 (09:31→17:57)
[2017-05-31] MEDS: VANCOMYCIN 500 MG VIAL (FOR ORAL USE ONLY) PO SCH ×4 (09:31→19:33)
--- NOTE | 2017-05-31 12:18 | HHI.NPPN ---
Subjective History of Present Illness 66-year-old male with past medical history of diabetes mellitus for more than 10 years, history of chronic kidney disease and acute kidney injury off and on, hypertension, history of hypertension, chronic obstructive pulmonary disease, AV block with post pacemaker placement who came to the hospital with complaint of abdominal pain, distension and nausea, vomiting with diarrhea. I was called to see the patient because of elevated BUN and creatinine. The patient has a creatinine of 1.5 on presentation which has been getting worse and now is 4.1. Additional Remarks Patient is alert, not eating well, still has loose BM. Review of Systems General Constitutional: Fatigue Cardiovascular Cardiac: DUARTE Gastrointestinal Gastrointestinal: Abdominal Pain Objective Data Data Vital Signs Date Time Temp Pulse Resp B/P (MAP) Pulse Ox O2 Delivery O2 Flow Rate FiO2 05/31/17 08:00 98.5 61 17 109/56 (73) 95 05/31/17 07:00 72 05/31/17 04:00 98.2 64 20 121/60 (80) 93 05/31/17 00:00 98.4 62 16 93/53 (66) 91 05/30/17 23:00 75 05/30/17 20:00 98.6 68 20 128/58 (81) 97 05/30/17 16:00 98.5 63 16 112/58 (76) 100 05/30/17 15:00 69 -: 05/31/17 0550 05/31/17 0945 Physical Exam General Appearance: No Acute Distress, Comfortable Eyes Eye Exam: Pupils Equal Pulmonary Resp Exam: Breath Sounds Equal, No Distress, Rhonchi, Decreased Bases, Diminished Breath Sounds Cardiology CV Exam: Regular, Normal Sinus Rhythm Gastrointestinal/Abdomen GI Exam: Soft, Non-Tender, Bowel Sounds Present, Non-Distended Extremeties Extremities Exam: Trace Edema Neurologic Neuro Exam: Alert, Awake, Oriented Psychiatric Psych Exam: Appropriate Responses Assessment/Plan Assessment Summary: EDGARDO/Acute Renal Failure Electrolyte Assessment: Hypokalemia, Metabolic Acidosis Problem List: (1) Hypokalemia ICD Codes: E87.6 - Hypokalemia (2) Metabolic acidosis ICD Codes: E87.2 - Acidosis (3) Nausea and vomiting in adult ICD Codes: R11.2 - Nausea with vomiting, unspecified Status: Acute (4) HTN (hypertension) ICD Codes: I10 - Essential (primary) hypertension Status: Chronic (5) DM (diabetes mellitus) ICD Codes: E11.9 - Type 2 diabetes mellitus without complications Status: Chronic (6) Hyperglycemia ICD Codes: R73.9 - Hyperglycemia, unspecified; L08.9 - Local infection of the skin and subcutaneous tissue, unspecified Status: Acute (7) Dehydration ICD Codes: E86.0 - Dehydration Status: Acute (8) EDGARDO (acute kidney injury) ICD Codes: N17.9 - Acute kidney failure, unspecified Status: Acute Plan Patient most likely has chronic kidney disease, and now develop EDGARDO. Has minimal proteinuria, K is low, and has metabolic acidosis. Has large amount of liquid stool. Urine K is low, has non renal loss. On IVF with NaHco3. Non oliguric, has adequate urine out put. Avoid Nephrotoxins, Creatinine is improving and K is better. Encourage oral intake. Problem Qualifiers (1) HTN (hypertension): Qualified Codes: I10 - Essential (primary) hypertension Jerrod oNel MD May 31, 2017 12:18
--- NOTE | 2017-05-31 13:04 | HHI.PR ---
Subjective Subjective Notes feels fine, tolerating po, denies abd pain Objective Vitals/I&O Vital Signs Date Time Temp Pulse Resp B/P (MAP) Pulse Ox O2 Delivery O2 Flow Rate FiO2 05/31/17 12:00 98.6 63 19 124/60 (81) 97 05/30/17 08:51 Nasal Cannula 2.00 Labs Laboratory Tests Test 05/31/17 05:50 05/31/17 09:45 White Blood Count 20.6 Red Blood Count 3.80 Hemoglobin 10.9 Hematocrit 34.3 Mean Corpuscular Volume 90.2 Mean Corpuscular Hemoglobin 28.6 Mean Corpuscular Hemoglobin Concent 31.7 Red Cell Distribution Width 16.4 Platelet Count 77 Mean Platelet Volume 8.5 Neutrophils (%) (Auto) 89.1 Lymphocytes (%) (Auto) 6.4 Monocytes (%) (Auto) 4.1 Eosinophils (%) (Auto) 0.1 Basophils (%) (Auto) 0.3 Neutrophils # (Auto) 18.3 Lymphocytes # (Auto) 1.3 Monocytes # (Auto) 0.8 Eosinophils # (Auto) 0.0 Basophils # (Auto) 0.1 CBC Comment AUTO DIFF Differential Total Cells Counted 100 Neutrophils % (Manual) 62 Band Neutrophils % 27 Lymphocytes % 4 Monocytes % 3 Neutrophils # (Manual) 19.2 Metamyelocytes 3 Myelocytes 1 Differential Comment FINAL DIFF MANUAL Platelet Estimate LOW Platelet Morphology Comment NORMAL Red Cell Morphology Comment NORMAL Blood Urea Nitrogen 59 Creatinine 3.21 Random Glucose 291 Total Protein 4.8 Albumin 1.1 Calcium Level 6.5 Phosphorus Level 4.7 Magnesium Level 2.1 Alkaline Phosphatase 235 Aspartate Amino Transf (AST/SGOT) 47 Alanine Aminotransferase (ALT/SGPT) 9 Total Bilirubin 0.4 Sodium Level 138 Potassium Level 6.5 3.3 Chloride Level 107 Carbon Dioxide Level 16.1 Anion Gap 15 Estimat Glomerular Filtration Rate 19 Protein Corrected Calcium 7.6 Date/Time Source Procedure Growth Status 05/29/17 00:55 Blood Peripheral Aerobic Blood Culture - Preliminary NO GROWTH IN 2 DAYS Resulted 05/29/17 00:55 Blood Peripheral Anaerobic Blood Culture - Preliminary NO GROWTH IN 2 DAYS Resulted 05/28/17 20:45 Urine Catheterized Urine Urine Culture - Final NO GROWTH IN 48 HOURS. Complete Radiology Last Impressions Enema w/Water Soluble 05/28/17 0000 Signed Impressions: Service Date/Time: May 15:14 - CONCLUSION: Limited examination. However, there is a focal high grade stricture involving the junction between the transverse colon and descending colon at the level of the splenic flexure on the left side. Neoplastic disease is the primary consideration. John Francois MD Chest X-Ray 05/27/17 0600 Signed Impressions: Service Date/Time: Saturday, May 27, 2017 05:19 - CONCLUSION: Developing left lung infiltrates. Forrest Green MD Abdomen Ultrasound 05/27/17 0000 Signed Impressions: Service Date/Time: Thursday, May 27, 2017 16:31 - CONCLUSION: Discordant velocities in imaging findings. CT angiography may be of benefit. Delfin Mittal MD FACR Abdomen/Pelvis CT 05/25/17 1428 Signed Impressions: Service Date/Time: Thursday, May 25, 2017 16:29 - CONCLUSION: 1. Severe small bowel and colonic distention to the level of the splenic flexure where there is a sharp transition zone. Obstructing neoplasm is not excluded. Willi Muñoz MD Foot X-Ray 05/25/17 1401 Signed Impressions: Service Date/Time: Thursday, May 25, 2017 15:01 - CONCLUSION: Spiral fracture fifth metatarsal. Delfin Mittal MD FACR Abdomen: Non-distended, Non-tender, BS normal A/P Problem List: (1) C. difficile diarrhea ICD Codes: A04.72 - Enterocolitis due to Clostridium difficile, not specified as recurrent Status: Acute (2) Left foot infection ICD Codes: L08.9 - Local infection of the skin and subcutaneous tissue, unspecified Status: Chronic (3) Diabetic infection of left foot ICD Codes: E11.69 - Type 2 diabetes mellitus with other specified complication ; L08.9 - Local infection of the skin and subcutaneous tissue, unspecified Status: Chronic (4) DKA (diabetic ketoacidoses) ICD Codes: E13.10 - Other specified diabetes mellitus with ketoacidosis without coma Status: Resolved (5) DM (diabetes mellitus) ICD Codes: E11.9 - Type 2 diabetes mellitus without complications Status: Chronic (6) HTN (hypertension) ICD Codes: I10 - Essential (primary) hypertension Status: Chronic Assessment and Plan colonic stricture, r/o malignancy, C diff await further work up and resolution of C diff before surgical intervention. Problem Qualifiers (1) HTN (hypertension): Qualified Codes: I10 - Essential (primary) hypertension Sunil Latham MD May 31, 2017 13:04
[2017-05-31] MEDS ORDERED: POTASSIUM CHLOR 40 MEQ PREMIX 100 ML IV ONE (14:00)
[2017-05-31] MEDS: CEFEPIME INJ 2,000 MG in SODIUM CHLORIDE 0.9% INJ 100 ML IV SCH (14:35)
--- NOTE | 2017-05-31 16:39 | HHI.GIFU ---
Subjective Remarks Resting in bed. Denies abdominal pain. Tolerating diet. (Jasmyne Montano) Objective Vitals I&O Vital Signs Date Time Temp Pulse Resp B/P (MAP) Pulse Ox O2 Delivery O2 Flow Rate FiO2 05/31/17 16:00 98.6 72 14 112/55 (74) 97 05/31/17 15:00 72 05/31/17 12:00 98.6 63 19 124/60 (81) 97 05/31/17 08:00 98.5 61 17 109/56 (73) 95 05/31/17 07:00 72 05/31/17 04:00 98.2 64 20 121/60 (80) 93 05/31/17 00:00 98.4 62 16 93/53 (66) 91 05/30/17 23:00 75 05/30/17 20:00 98.6 68 20 128/58 (81) 97 I/O 05/30/17 05/30/17 05/30/17 05/31/17 05/31/17 05/31/17 07:00 15:00 23:00 07:00 15:00 23:00 Intake Total 2000 ml 2100 ml 6550 ml 2524 ml 950 ml Output Total 2600 ml 2900 ml 3050 ml Balance -600 ml 2100 ml 3650 ml -526 ml 950 ml Intake Oral 750 ml 960 ml IV Total 2000 ml 2100 ml 5800 ml 1564 ml 950 ml Output Urine Total 600 ml 650 ml 550 ml Stool Total 2000 ml 2250 ml 2500 ml Laboratory Laboratory Tests Test 05/31/17 05:50 05/31/17 09:45 White Blood Count 20.6 Red Blood Count 3.80 Hemoglobin 10.9 Hematocrit 34.3 Mean Corpuscular Volume 90.2 Mean Corpuscular Hemoglobin 28.6 Mean Corpuscular Hemoglobin Concent 31.7 Red Cell Distribution Width 16.4 Platelet Count 77 Mean Platelet Volume 8.5 Neutrophils (%) (Auto) 89.1 Lymphocytes (%) (Auto) 6.4 Monocytes (%) (Auto) 4.1 Eosinophils (%) (Auto) 0.1 Basophils (%) (Auto) 0.3 Neutrophils # (Auto) 18.3 Lymphocytes # (Auto) 1.3 Monocytes # (Auto) 0.8 Eosinophils # (Auto) 0.0 Basophils # (Auto) 0.1 CBC Comment AUTO DIFF Differential Total Cells Counted 100 Neutrophils % (Manual) 62 Band Neutrophils % 27 Lymphocytes % 4 Monocytes % 3 Neutrophils # (Manual) 19.2 Metamyelocytes 3 Myelocytes 1 Differential Comment FINAL DIFF MANUAL Platelet Estimate LOW Platelet Morphology Comment NORMAL Red Cell Morphology Comment NORMAL Blood Urea Nitrogen 59 Creatinine 3.21 Random Glucose 291 Total Protein 4.8 Albumin 1.1 Calcium Level 6.5 Phosphorus Level 4.7 Magnesium Level 2.1 Alkaline Phosphatase 235 Aspartate Amino Transf (AST/SGOT) 47 Alanine Aminotransferase (ALT/SGPT) 9 Total Bilirubin 0.4 Sodium Level 138 Potassium Level 6.5 3.3 Chloride Level 107 Carbon Dioxide Level 16.1 Anion Gap 15 Estimat Glomerular Filtration Rate 19 Protein Corrected Calcium 7.6 Date/Time Source Procedure Growth Status 05/29/17 00:55 Blood Peripheral Aerobic Blood Culture - Preliminary NO GROWTH IN 2 DAYS Resulted 05/29/17 00:55 Blood Peripheral Anaerobic Blood Culture - Preliminary NO GROWTH IN 2 DAYS Resulted 05/28/17 20:45 Urine Catheterized Urine Urine Culture - Final NO GROWTH IN 48 HOURS. Complete Imaging Last Impressions Enema w/Water Soluble 05/28/17 0000 Signed Impressions: Service Date/Time: May 15:14 - CONCLUSION: Limited examination. However, there is a focal high grade stricture involving the junction between the transverse colon and descending colon at the level of the splenic flexure on the left side. Neoplastic disease is the primary consideration. John Francois MD Chest X-Ray 05/27/17 0600 Signed Impressions: Service Date/Time: Saturday, May 27, 2017 05:19 - CONCLUSION: Developing left lung infiltrates. Forrest Green MD Abdomen Ultrasound 05/27/17 0000 Signed Impressions: Service Date/Time: Saturday, May 27, 2017 16:31 - CONCLUSION: Discordant velocities in imaging findings. CT angiography may be of benefit. Delfin Mittal MD FACR Abdomen/Pelvis CT 05/25/17 1428 Signed Impressions: Service Date/Time: Thursday, May 25, 2017 16:29 - CONCLUSION: 1. Severe small bowel and colonic distention to the level of the splenic flexure where there is a sharp transition zone. Obstructing neoplasm is not excluded. Willi Muñoz MD Foot X-Ray 05/25/17 1401 Signed Impressions: Service Date/Time: Thursday, May 25, 2017 15:01 - CONCLUSION: Spiral fracture fifth metatarsal. Delfin Mittal MD FACR Physical Exam HEENT: Normocephalic; atraumatic; no jaundice. CHEST: CTA CARDIAC: RRR ABDOMEN: Soft, moderately distended,nontender; no hepatosplenomegaly; bowel sounds are present in all four quadrants. SKIN: Normal; no rash; no jaundice. CONTROLLED ATMOSPHERIC FURNACE BRAZER: Awake and alert. (Jasmyne Montano) Assessment and Plan Plan ASSESSMENT - Abd pain, N/V/D. CT abdomen and pelvis (05/25/17)---> Severe small bowel and colonic distention to the level of the splenic flexure where this is a sharp transition zone. Obstructing neoplasm is not excluded. S/P Colonoscopy (05/27/17)---> 1. Stricture splenic flexure-scope could not be passed, multiple ulcers in sigmoid,descending, rectum-biopsy fro splenic flexure, rectum 2. Retroflexed views revealed internal hemorrhoids 3. Retroflexed views revealed small internal hemorrhoids. Pathology pending. Pt has CDiff. ? ischemia. Unable to have CTA secondary to EDGARDO. US Abdomen (05/27/17)---> Discordant velocities in imaging findings, CTA may be of benefit. CEA 3.0, Ca 19-9 28.3. Gastrografin Enema (05/28/17)---> Limited examination. However there is a focal high grade stricture involving the junction between the transverse colon and descending colon at the level of the splenic flexure on the left side. Neoplastic disease is the primary consideration. splenic flex bx benign, rectum bx acutely and chronically inflamed granulation tissue. GS following. Clinically, he is improved. Flagyl, Oral vanco. - CDiff Colitis, Epid 027. Oral Vanco, Flagyl. - Severe sepsis, leukocytosis. WBC 20.6. Flagyl, oral Vanco. - Anemia. 10.9/34.3 - EDGARDO. Creat 3.21, GFR 19. Nephrology following - CMP, CHF, DM, Hyperlipidemia per attending. PLAN - Diet per GS - Cont. oral Vanco - Cont. Flagyl - Monitor labs - General Surgery and ID following - Supportive care - Consider CTA once kidney issues resolve, ? >50% stenosis in the celiac, sma - Consider repeat colonoscopy with ultraslim or pediatric scope, timing to be determined (Thursday?) Patient seen and examined by Dr. Ray and myself and this note is written on his behalf (Jasmyne Montano) Physician Comments Agree with the plan as above. Will schedule colonoscopy Thursday or Thursday. Will follow up with you. (Robby Ray MD) Jasmyne Montano May 31, 2017 16:39 Robby Ray MD May 31, 2017 20:33
[2017-05-31] MEDS: DONEPEZIL HCL 5 MG TAB PO SCH (19:33)
[2017-06-01] VITALS (9 sets, daily range): BP systolic 108–129; BP diastolic 53–64; PULSE 62–78; RESP 12–26; TEMP 98–98.6; O2SAT 93–98
[2017-06-01] MEDS: metroNIDAZOLE 500 MG INJ 100 ML IV SCH ×5 (00:09→23:53)
[2017-06-01] MEDS: FAMOTIDINE 20 MG/2 ML VIAL IV PUSH SCH ×2 (04:31→15:41)
[2017-06-01] MEDS: SODIUM BICARBONATE 8.4% INJ 150 MEQ in WATER STERILE FOR INJ 850 ML IV SCH ×2 (04:52→17:10)
[2017-06-01] MEDS: NS + KCL 40 MEQ INJ 1,000 ML IV SCH ×4 (04:53→21:19)
[2017-06-01] MEDS: HEPARIN SODIUM - SQ 10,000 UNITS/ML VIAL SQ SCH ×2 (04:53→17:31)
[2017-06-01 05:37] LABS: BICARBONATE 27.2 MEQ/L (21.0-32.0)
[2017-06-01 05:40] LABS: POTASSIUM 2.5 MEQ/L (3.5-5.1)
[2017-06-01] MEDS: DEXTROSE 50% IN WATER 50 ML VIAL(D50) IV PUSH PRN ×2 (05:45→09:08)
[2017-06-01 05:54] LABS: CALCIUM-PROTEIN CORRECTED 8.1 MG/DL (8.5-10.1)
--- NOTE | 2017-06-01 07:32 | HHI.CCPN ---
Subjective Remarks/Hospital Course This is a a 66 year old male with a history of diabetes mellitus type 1, diabetic ulcer, 3rd degree heart block S/p pacemaker placement that presented to the emergency department on 05/25/2017 due to sudden onset of abdominal pain , nausea and vomiting. He has not had a bowel movement in 3 days. On arrival, patient has leukocytosis with WBC count 20.1K, lactic acid 4.7. CT abdomen pelvis shows small bowel and colonic distention with transition point at the splenic flexure. CT abdomen and pelvis also indicated possibility of neoplasm causing obstruction. Patient denies any headache, chest pain, cough, shortness of breath. denies any Dysuria and hematuria. Of note, patient has lost 20-30 lbs in the recent months. The patient was admitted to the medical floor, throughout the night the patient condition deteriorated became hemodynamically unstable, systolic blood pressures in the 80s. Critical care medicine was consulted. [place] [facility] the patient was noted to have a blood pressure 79/50, HR 90's the patient was bolused 2 L of normal saline IV fluid right regarding A-line was placed the patient was placed on low dose phenylephrine infusion 20 mcgs. Consent was obtained and a right subclavian central line was placed the patient received a third liter IV fluids labs are pending at this time. Of note patient previously at [facility] in [place] when noted to have biopsies records not obtained at this time reveals abnormal pathology unknown. CEA levels pending. 05/27: Requires FMS for corrosive diarrhea. Plan for colonoscopy today; looking specifically for tumor at splenic flexure. Renal function continues to deteriorate. 05/28: Contrast study reveals high grade stricture at splenic flexure - likely a malignancy. 05/29: Continued metabolic acidosis from sepsis, dehydration from GI losses. Bacteroides in blood. Renal function deteriorating but urine output finally increasing. Continue bicarb gtt. 05/30: Base deficit corrected now after hydration and bicarb infusion. Profuse liters of watery diarrhea continues. Renal function improving after aggressive hydration. He remains very thirsty. 05/31: Large fluid losses from 4+ liter watery diarrhea, matched with intravenous replacement. Elevated K this morning likely an error, recheck, adjust K replacement. 06/01: Continued large volume watery diarrhea. Renal function improving with aggressive hydration. Bicarb replacement required. Objective Vital Signs Date Time Temp Pulse Resp B/P (MAP) Pulse Ox O2 Delivery O2 Flow Rate FiO2 06/01/17 04:00 98.3 70 20 108/53 (71) 97 06/01/17 04:00 Nasal Cannula 3.00 Intake and Output 06/01/17 06/01/17 06/02/17 08:00 16:00 00:00 Intake Total 3306 ml Output Total 1100 ml Balance 2206 ml Result Diagram: 05/31/17 0550 06/01/17 0445 Imaging Last Impressions Abdomen/Pelvis CT 05/25/17 1428 Signed Impressions: Service Date/Time: Thursday, May 25, 2017 16:29 - CONCLUSION: 1. Severe small bowel and colonic distention to the level of the splenic flexure where there is a sharp transition zone. Obstructing neoplasm is not excluded. Willi Muñoz MD Foot X-Ray 05/25/17 1401 Signed Impressions: Service Date/Time: Thursday, May 25, 2017 15:01 - CONCLUSION: Spiral fracture fifth metatarsal. Delfin Mittal MD FACR Chest X-Ray 05/25/17 140 Signed Impressions: Service Date/Time: Thursday, May 25, 2017 14:59 - CONCLUSION: Moderate hyperinflation with pacer otherwise negative. Delfin Mittal MD FACR Objective Remarks GENERAL: Emaciated, ill-appearing gentleman alert and oriented SKIN: Warm and dry. Improving skin turgor HEAD: Atraumatic. Normocephalic. EYES: Pupils equal and round. No conjunctival icterus. No injection or drainage. ENT: No nasal bleeding or discharge. Mucous membranes dry NECK: Trachea midline. Airway patent, unobstructed. CARDIOVASCULAR: Normal rate, regular rhythm. No JVD. NL S1S2, no m,r. RESPIRATORY: Clear to auscultation. Breath sounds equal bilaterally. No adventitious sounds. GASTROINTESTINAL: Abdomen soft, non-tender, moderately distended. No guarding. BS hyperactive. MUSCULOSKELETAL: Extremities without clubbing, cyanosis, or edema. Well perfused. NEUROLOGICAL: Ill-appearing. Awake and alert. No gross focal/sensory deficits. Follows commands in all 4 extremities. A/P Assessment and Plan Assessment This is a 66-year-old male patient with a history of C. difficile colitis, fungal esophagitis, duodenal ulcer, erosive gastritis previously hospitalized , now presenting with septic shock secondary to C. difficile colitis versus ischemic bowel from small bowel obstruction. Assessment: C. difficile colitis Possible Small bowel obstruction Anion gap metabolic acidosis Hypertension Diabetes mellitus Acute on chronic kidney injury Dehydration H/O NH Cardiomyopathy Tonic systolic congestive heart failure History of third-degree block status post pacemaker insertion H/O Afib RVR (03/12) Cardioverted Dementia mild Diabetic peripheral neuropathy History of tobacco abuse History of alcohol abuse Dyslipidemia Plan Plan by systems: Neurologic: Avoid sedative type medications Ofirmev IV every 6 hours when necessary Patient previously 14 shots of liquor per week, per old medical records (02/2017 ) 2 shots of Rum/day Monitor for signs of alcohol withdrawal Seizure precautions Continue donepezil 5 mg q hs, continue gabapentin Fluoxetine 40 mg /day Respiratory: Maintain O2 sat greater than 92% Bronchodilators every 4 hours when necessary for wheezing Currently O2 at 2 L nasal cannula H/O smoking 50 pack years. Counseled on smoking cessation Cardiovascular: Maintain MAP greater than 65mmHg Begin Levophed and Phenylephrine infusions to maintain MAP F/U Pacemaker interrogation Discontinue lisinopril BLAZE inhibitor in the setting of acute kidney injury Hold carvedilol 3.125 BID secondary to hypotension ASA 81mg placed on hold for now Monitor CVP Echo from previous hospital 02/27/17 EF 53% (Previously 30%) Renal: Insert selby -- Strict I/Os - Generally edematous -- EDGARDO, nonoliguric now. Bolus with NS. Hold bicarb gtt at 150. -- Add 40 KCL to iv fluid. -- Replace GI losses with NS boluses. -- Continue bicarb gtt. FEN/GI: Monitor electrolytes and replete Replete calcium 2GM calcium gluconate Normal Saline 150 cc/hour Patient previously on atorvastatin Follow LFTs Heme/ID: F/U LDH Obtain Procalcitonin level ID following Dr. Medina-IV Flagyl, by mouth Vanco 250mg QID F/U CEA levels Previously hospitalized 03/12/17 C. difficile colitis Endocrine: Glucose monitoring per ICU protocol medium dose regimen DC Levemir -- SSI Prophylaxis: GI Prophylaxis Protonix will change to famotidine in the setting of chronic kidney disease DVT Prophylaxis -- SCDs Heparin Lines: Peripheral IVs 2. 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 Renal function improving as fluid and electrolyte losses are replaced. Repeat colonoscopy after 1-2 days. Michael Cornelius MD Jun 01, 2017 07:32
[2017-06-01] MEDS: INSULIN ASPART SUPPLEMENTAL SCALE SQ SCH ×4 (08:00→21:00)
[2017-06-01] MEDS: INSULIN DETEMIR 100 UNITS/ML VIAL SQ SCH ×2 (09:00→21:00)
[2017-06-01] MEDS: COLLAGENASE OINT 30 GM TUBE TOPICAL SCH (09:00)
[2017-06-01] MEDS: SODIUM CHLORIDE 0.9% FLUSH 10 ML FLUSH IV FLUSH SCH ×2 (09:00→20:56)
[2017-06-01] MEDS: FLUoxetine HCL 20 MG CAP PO SCH (09:06)
[2017-06-01] MEDS: VANCOMYCIN 500 MG VIAL (FOR ORAL USE ONLY) PO SCH ×4 (09:06→21:16)
[2017-06-01] MEDS: GABAPENTIN 100 MG CAP PO SCH ×2 (12:08→17:31)
[2017-06-01] MEDS: CEFEPIME INJ 2,000 MG in SODIUM CHLORIDE 0.9% INJ 100 ML IV SCH (15:00)
--- NOTE | 2017-06-01 16:55 | HHI.PR ---
cc: Michael Soares MD Subjective Subjective Notes Resting in bed Reports resolution of abdominal pain Objective Vitals/I&O Vital Signs Date Time Temp Pulse Resp B/P (MAP) Pulse Ox O2 Delivery O2 Flow Rate FiO2 06/01/17 15:00 69 06/01/17 12:00 98.0 12 125/61 (82) 96 06/01/17 07:00 Nasal Cannula 3.00 Labs Laboratory Tests Test 06/01/17 04:45 Blood Urea Nitrogen 45 Creatinine 2.40 Random Glucose 44 Total Protein 4.5 Calcium Level 6.7 Sodium Level 146 Potassium Level 2.5 Chloride Level 110 Carbon Dioxide Level 27.2 Anion Gap 9 Estimat Glomerular Filtration Rate 27 Protein Corrected Calcium 8.1 Date/Time Source Procedure Growth Status 05/29/17 00:55 Blood Peripheral Aerobic Blood Culture - Preliminary NO GROWTH IN 3 DAYS Resulted 05/29/17 00:55 Blood Peripheral Anaerobic Blood Culture - Preliminary NO GROWTH IN 3 DAYS Resulted 05/28/17 20:45 Urine Catheterized Urine Urine Culture - Final NO GROWTH IN 48 HOURS. Complete Radiology Last Impressions Enema w/Water Soluble 05/28/17 0000 Signed Impressions: Service Date/Time: May 15:14 - CONCLUSION: Limited examination. However, there is a focal high grade stricture involving the junction between the transverse colon and descending colon at the level of the splenic flexure on the left side. Neoplastic disease is the primary consideration. John Francois MD Chest X-Ray 05/27/17 0600 Signed Impressions: Service Date/Time: Saturday, May 27, 2017 05:19 - CONCLUSION: Developing left lung infiltrates. Forrest Green MD Abdomen Ultrasound 05/27/17 0000 Signed Impressions: Service Date/Time: Saturday, May 27, 2017 16:31 - CONCLUSION: Discordant velocities in imaging findings. CT angiography may be of benefit. Delfin Mittal MD FACR Abdomen/Pelvis CT 05/25/17 1428 Signed Impressions: Service Date/Time: Thursday, May 25, 2017 16:29 - CONCLUSION: 1. Severe small bowel and colonic distention to the level of the splenic flexure where there is a sharp transition zone. Obstructing neoplasm is not excluded. Willi Muñoz MD Foot X-Ray 05/25/17 1401 Signed Impressions: Service Date/Time: Thursday, May 25, 2017 15:01 - CONCLUSION: Spiral fracture fifth metatarsal. Delfin Mittal MD FACR Cardiovascular: Regular Lungs: Clear Abdomen: Non-distended, Non-tender Extremities: No edema Narrative Exam Rectal bag with liquid stool A/P Problem List: (1) C. difficile diarrhea ICD Codes: A04.72 - Enterocolitis due to Clostridium difficile, not specified as recurrent Status: Acute (2) Left foot infection ICD Codes: L08.9 - Local infection of the skin and subcutaneous tissue, unspecified Status: Chronic (3) Diabetic infection of left foot ICD Codes: E11.69 - Type 2 diabetes mellitus with other specified complication ; L08.9 - Local infection of the skin and subcutaneous tissue, unspecified Status: Chronic (4) DKA (diabetic ketoacidoses) ICD Codes: E13.10 - Other specified diabetes mellitus with ketoacidosis without coma Status: Resolved (5) DM (diabetes mellitus) ICD Codes: E11.9 - Type 2 diabetes mellitus without complications Status: Chronic (6) HTN (hypertension) ICD Codes: I10 - Essential (primary) hypertension Status: Chronic Assessment and Plan 66 year old male with diarrhea; diffuse abdominal distention---? neoplastic mass -Continue clear liquids -GGE--- high grade stricture between transverse colon and descending colon -Will need to be re-scoped at some point to eval again -Follow WBC ---trending up now -CCM following -Nephrology following ---renal function improved today -ID following---- + c-diff---on Oral Vanco and Flagyl Attending Statement doing better patient seen at bedside abdominal pain resolving still high output diarrhea on abx stricture may need surgical intervention, attempt non operative mgnt at this time Problem Qualifiers (1) HTN (hypertension): Qualified Codes: I10 - Essential (primary) hypertension Marianne Torres Jun 01, 2017 16:55 Michael Soares MD Jun 02, 2017 21:41
--- NOTE | 2017-06-01 18:59 | HHI.NPPN ---
Subjective History of Present Illness 66-year-old male with past medical history of diabetes mellitus for more than 10 years, history of chronic kidney disease and acute kidney injury off and on, hypertension, history of hypertension, chronic obstructive pulmonary disease, AV block with post pacemaker placement who came to the hospital with complaint of abdominal pain, distension and nausea, vomiting with diarrhea. I was called to see the patient because of elevated BUN and creatinine. The patient has a creatinine of 1.5 on presentation which has been getting worse and now is 4.1. Additional Remarks Patient is alert, not eating well, still has loose BM, not in distress. Review of Systems General Constitutional: Fatigue Cardiovascular Cardiac: DUARTE Gastrointestinal Gastrointestinal: Abdominal Pain Objective Data Data 06/01/17 06/02/17 19:00 07:00 Intake Total 600 ml Output Total 1750 ml Balance -1150 ml Intake Oral 600 ml Output Urine Total 900 ml Stool Total 850 ml Vital Signs Date Time Temp Pulse Resp B/P (MAP) Pulse Ox O2 Delivery O2 Flow Rate FiO2 06/01/17 16:00 98.4 70 22 129/62 (84) 93 06/01/17 15:00 69 06/01/17 12:00 98.0 64 12 125/61 (82) 96 06/01/17 10:00 70 06/01/17 08:00 62 06/01/17 08:00 98.2 63 22 117/55 (75) 93 06/01/17 07:00 97 Nasal Cannula 3.00 06/01/17 04:00 98.3 70 20 108/53 (71) 97 06/01/17 04:00 93 Nasal Cannula 3.00 06/01/17 00:00 78 06/01/17 00:00 98.5 78 26 121/64 (83) 97 05/31/17 22:00 70 05/31/17 20:00 72 05/31/17 20:00 98.2 78 24 121/64 (83) 92 -: 05/31/17 0550 06/01/17 0445 Physical Exam General Appearance: No Acute Distress, Comfortable Eyes Eye Exam: Pupils Equal Pulmonary Resp Exam: Breath Sounds Equal, No Distress, Rhonchi, Decreased Bases, Diminished Breath Sounds Cardiology CV Exam: Regular, Normal Sinus Rhythm Gastrointestinal/Abdomen GI Exam: Soft, Non-Tender, Bowel Sounds Present, Non-Distended Extremeties Extremities Exam: Trace Edema Neurologic Neuro Exam: Alert, Awake, Oriented Psychiatric Psych Exam: Appropriate Responses Assessment/Plan Assessment Summary: EDGARDO/Acute Renal Failure Electrolyte Assessment: Hypokalemia, Metabolic Acidosis Problem List: (1) Hypokalemia ICD Codes: E87.6 - Hypokalemia (2) Metabolic acidosis ICD Codes: E87.2 - Acidosis (3) Nausea and vomiting in adult ICD Codes: R11.2 - Nausea with vomiting, unspecified Status: Acute (4) HTN (hypertension) ICD Codes: I10 - Essential (primary) hypertension Status: Chronic (5) DM (diabetes mellitus) ICD Codes: E11.9 - Type 2 diabetes mellitus without complications Status: Chronic (6) Hyperglycemia ICD Codes: R73.9 - Hyperglycemia, unspecified; L08.9 - Local infection of the skin and subcutaneous tissue, unspecified Status: Acute (7) Dehydration ICD Codes: E86.0 - Dehydration Status: Acute (8) EDGARDO (acute kidney injury) ICD Codes: N17.9 - Acute kidney failure, unspecified Status: Acute Plan Patient most likely has chronic kidney disease, and now develop EDGARDO. Has minimal proteinuria, K is low, and has metabolic acidosis. Has large amount of liquid stool. Urine K is low, has non renal loss. On IVF with NaHco3. Non oliguric, has adequate urine out put. Avoid Nephrotoxins, Creatinine is improving and K is better. Encourage oral intake. Need colonoscopy, K and calcium low, replaced. Problem Qualifiers (1) HTN (hypertension): Qualified Codes: I10 - Essential (primary) hypertension Jerrod Noel MD Jun 01, 2017 18:59
[2017-06-01] MEDS: DONEPEZIL HCL 5 MG TAB PO SCH (21:16)
[2017-06-02] VITALS (8 sets, daily range): BP systolic 113–134; BP diastolic 56–66; PULSE 62–78; RESP 16–22; TEMP 98.3–98.8; O2SAT 95–100
[2017-06-02] MEDS: FAMOTIDINE 20 MG/2 ML VIAL IV PUSH SCH ×2 (04:00→14:58)
[2017-06-02 05:02] LABS: HEMATOCRIT 31.9 % (39.0-51.0); MEAN CELL VOLUME 87.5 FL (80.0-100.0); PLATELET COUNT 69 TH/MM3 (150-450); RED BLOOD COUNT 3.64 MIL/MM3 (4.50-5.90); RED CELL DISTRIBUTION WIDTH 16.1 % (11.6-17.2); WHITE BLOOD COUNT 16.8 TH/MM3 (4.0-11.0)
[2017-06-02 05:13] LABS: HEMO FLAGS AUTO DIFF
[2017-06-02] MEDS: HEPARIN SODIUM - SQ 10,000 UNITS/ML VIAL SQ SCH ×2 (05:17→18:27)
[2017-06-02] MEDS: metroNIDAZOLE 500 MG INJ 100 ML IV SCH ×3 (05:17→18:28)
[2017-06-02 05:32] LABS: BICARBONATE 23.5 MEQ/L (21.0-32.0); CALCIUM-PROTEIN CORRECTED 8.5 MG/DL (8.5-10.1); POTASSIUM 3.1 MEQ/L (3.5-5.1); TOTAL BILIRUBIN ADULT 0.3 MG/DL (0.2-1.0)
[2017-06-02] MEDS: NS + KCL 40 MEQ INJ 1,000 ML IV SCH ×3 (05:56→21:24)
[2017-06-02 06:53] LABS: BANDS 7 % (0-6); EOSINOPHILS 1 % (0-4); METAMYELOCYTES 1 % (0-1); MYELOCYTES 2 % (0-0); NEUTROPHIL # MANUAL DIFF 15.1 TH/MM3 (1.8-7.7); POLYS (SEG NEUTROPHILS) 80 % (16-70); WBC DIFF SAMPLE 100
[2017-06-02 06:54] LABS: PLATELET ESTIMATE SMEAR LOW (NORMAL); PLATELET MORPHOLOGY NORMAL (NORMAL); SCAN/DIFF FINAL DIFF MANUAL
[2017-06-02 06:56] LABS: DOHLE BODIES PRESENT (NONE SEEN)
[2017-06-02] MEDS: INSULIN DETEMIR 100 UNITS/ML VIAL SQ SCH ×2 (09:00→21:22)
[2017-06-02] MEDS: SODIUM CHLORIDE 0.9% FLUSH 10 ML FLUSH IV FLUSH SCH ×2 (09:00→21:21)
[2017-06-02] MEDS: INSULIN ASPART SUPPLEMENTAL SCALE SQ SCH ×4 (09:13→21:00)
[2017-06-02] MEDS: VANCOMYCIN 500 MG VIAL (FOR ORAL USE ONLY) PO SCH ×4 (09:14→21:22)
[2017-06-02] MEDS: GABAPENTIN 100 MG CAP PO SCH ×3 (09:14→18:28)
[2017-06-02] MEDS: FLUoxetine HCL 20 MG CAP PO SCH (09:14)
[2017-06-02] MEDS: COLLAGENASE OINT 30 GM TUBE TOPICAL SCH (09:15)
--- NOTE | 2017-06-02 09:45 | HHI.IDPN ---
Subjective Subjective Remarks 66 year old male admistted with abdominal pain and possiblebowel obstruction. Has been diagnosed with recurrent C difficile colitis. 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 difficile colitis RLE fracture, required a cast Past Surgical History R knee surgery CT for PTX Allergies: Coded Allergies: No Known Allergies (Unverified Adverse Reaction, Unknown, 05/25/17) Objective . Vital Signs Date Time Temp Pulse Resp B/P (MAP) Pulse Ox O2 Delivery O2 Flow Rate FiO2 06/02/17 04:00 98.6 78 18 120/61 (80) 96 06/02/17 00:00 98.5 66 22 113/56 (75) 96 06/01/17 22:24 98 Nasal Cannula 2.00 06/01/17 20:00 98.6 65 21 125/60 (81) 95 06/01/17 19:00 96 Nasal Cannula 3.00 06/01/17 16:00 98.4 70 22 129/62 (84) 93 06/01/17 15:00 69 06/01/17 12:00 98.0 64 12 125/61 (82) 96 06/01/17 10:00 70 . Laboratory Tests Test 06/02/17 04:35 White Blood Count 16.8 TH/MM3 Red Blood Count 3.64 MIL/MM3 Hemoglobin 10.2 GM/DL Hematocrit 31.9 % Mean Corpuscular Volume 87.5 FL Mean Corpuscular Hemoglobin 28.0 PG Mean Corpuscular Hemoglobin Concent 32.0 % Red Cell Distribution Width 16.1 % Platelet Count 69 TH/MM3 Mean Platelet Volume 8.7 FL CBC Comment AUTO DIFF Differential Total Cells Counted 100 Neutrophils % (Manual) 80 % Band Neutrophils % 7 % Lymphocytes % 5 % Monocytes % 4 % Eosinophils % 1 % Neutrophils # (Manual) 15.1 TH/MM3 Metamyelocytes 1 % Myelocytes 2 % Differential Comment FINAL DIFF MANUAL Dohle Bodies PRESENT Platelet Estimate LOW Platelet Morphology Comment NORMAL Laboratory Tests Test 05/31/17 09:45 06/01/17 04:45 06/02/17 04:35 Potassium Level 3.3 MEQ/L 2.5 MEQ/L 3.1 MEQ/L Blood Urea Nitrogen 45 MG/DL 34 MG/DL Creatinine 2.40 MG/DL 1.81 MG/DL Random Glucose 44 MG/DL 247 MG/DL Total Protein 4.5 GM/DL 4.4 GM/DL Calcium Level 6.7 MG/DL 7.0 MG/DL Sodium Level 146 MEQ/L 145 MEQ/L Chloride Level 110 MEQ/L 109 MEQ/L Carbon Dioxide Level 27.2 MEQ/L 23.5 MEQ/L Anion Gap 9 MEQ/L 13 MEQ/L Estimat Glomerular Filtration Rate 27 ML/MIN 38 ML/MIN Protein Corrected Calcium 8.1 MG/DL 8.5 MG/DL Albumin 1.1 GM/DL Alkaline Phosphatase 318 U/L Aspartate Amino Transf (AST/SGOT) 19 U/L Alanine Aminotransferase (ALT/SGPT) 8 U/L Total Bilirubin 0.3 MG/DL Prealbumin 7 MG/DL Imaging Last Impressions Enema w/Water Soluble 05/28/17 0000 Signed Impressions: Service Date/Time: May 15:14 - CONCLUSION: Limited examination. However, there is a focal high grade stricture involving the junction between the transverse colon and descending colon at the level of the splenic flexure on the left side. Neoplastic disease is the primary consideration. John Francois MD Chest X-Ray 05/27/17 0600 Signed Impressions: Service Date/Time: Saturday, May 27, 2017 05:19 - CONCLUSION: Developing left lung infiltrates. Forrest Green MD Abdomen Ultrasound 05/27/17 0000 Signed Impressions: Service Date/Time: Saturday, May 27, 2017 16:31 - CONCLUSION: Discordant velocities in imaging findings. CT angiography may be of benefit. Delfin Mittal MD FACR Abdomen/Pelvis CT 05/25/17 1428 Signed Impressions: Service Date/Time: Thursday, May 25, 2017 16:29 - CONCLUSION: 1. Severe small bowel and colonic distention to the level of the splenic flexure where there is a sharp transition zone. Obstructing neoplasm is not excluded. Willi Muñoz MD Foot X-Ray 05/25/17 1401 Signed Impressions: Service Date/Time: Thursday, May 25, 2017 15:01 - CONCLUSION: Spiral fracture fifth metatarsal. Delfin Mittal MD FACR Physical Exam GENERAL: Awake and alert, not in respiratory distress. SKIN: Cool and dry. No generalized rash HEAD: Atraumatic. Normocephalic. No temporal wasting, or tenderness. EYES: Segundo conjunctiva. No petechia or hemorrhage. Pupils equal, round and reactive to light. Extraocular movements full and intact. No scleral icterus. EARS, NOSE AND THROAT: Nose without bleeding or purulent nasal discharge. No sinus tenderness. Mucous membranes pink and moist. Poor dentition. NECK: Trachea midline. Supple and not tender, no meningeal signs CARDIOVASCULAR: Regular rate and rhythm. No murmurs, rubs or gallops heard. Pacer in L upper chest, with no evidence of infection RESPIRATORY: Clear to auscultation. Breath sounds equal bilaterally. No rales , wheezing or rhonchi. Decreased at bases ABDOMEN: Soft, not distended, no tenderness, . Bowel sounds present and hypoactive, no guarding. No rebound. No organomegaly. EXTREMITIES: No clubbing, cyanosis, or edema. No calf tenderness. Well perfused and warm. A small ulcer in R medial heel, with no evidence of infection NEUROLOGICAL: Awake and alert Cranial nerves grossly intact. Motor grossly within normal limits. PSYCHIATRIC: Normal affect, calm and cooperative. LINE: No evidence of infection Has stool collection bag, has liquid stool, green Assessment & Plan Remarks IMPRESSION Sepsis on presentation, with shock, has N/V and diarrhea: clinically improving - ?Recurrent C diff colitis, ?ischemic bowel (previous CTA ok per records, ?due to low flow state from hypotension) - high volume diarrhea Iveth fragi;is bacteremia Bowel obstruction, last colonoscopy no mention of colon mass, has stricture in splenic flexure Prob with CKD, with worsening due to hypotension, improving RECOMMENDATION Continue C diff Rx : IV Flagyl and po Vancomycin Stop Cefepime Fluid resuscitation Follow CBC Renal following Monitor progress Spoke with Alexandro Medinareggie Agrawal MD Jun 02, 2017 09:45
--- NOTE | 2017-06-02 11:07 | HHI.CCPN ---
Subjective Remarks/Hospital Course This is a a 66 year old male with a history of diabetes mellitus type 1, diabetic ulcer, 3rd degree heart block S/p pacemaker placement that presented to the emergency department on 05/25/2017 due to sudden onset of abdominal pain , nausea and vomiting. He has not had a bowel movement in 3 days. On arrival, patient has leukocytosis with WBC count 20.1K, lactic acid 4.7. CT abdomen pelvis shows small bowel and colonic distention with transition point at the splenic flexure. CT abdomen and pelvis also indicated possibility of neoplasm causing obstruction. Patient denies any headache, chest pain, cough, shortness of breath. denies any Dysuria and hematuria. Of note, patient has lost 20-30 lbs in the recent months. The patient was admitted to the medical floor, throughout the night the patient condition deteriorated became hemodynamically unstable, systolic blood pressures in the 80s. Critical care medicine was consulted. The patient was transferred to the [facility], upon presentation the patient was noted to have a blood pressure 79/50, HR 90's the patient was bolused 2 L of normal saline IV fluid right regarding A-line was placed the patient was placed on low dose phenylephrine infusion 20 mcgs. Consent was obtained and a right subclavian central line was placed the patient received a third liter IV fluids labs are pending at this time. Of note patient previously at [facility] in [place] when noted to have biopsies records not obtained at this time reveals abnormal pathology unknown. CEA levels pending. 05/27: Requires FMS for corrosive diarrhea. Plan for colonoscopy today; looking specifically for tumor at splenic flexure. Renal function continues to deteriorate. 05/28: Contrast study reveals high grade stricture at splenic flexure - likely a malignancy. 05/29: Continued metabolic acidosis from sepsis, dehydration from GI losses. Bacteroides in blood. Renal function deteriorating but urine output finally increasing. Continue bicarb gtt. 05/30: Base deficit corrected now after hydration and bicarb infusion. Profuse liters of watery diarrhea continues. Renal function improving after aggressive hydration. He remains very thirsty. 05/31: Large fluid losses from 4+ liter watery diarrhea, matched with intravenous replacement. Elevated K this morning likely an error, recheck, adjust K replacement. 06/01: Continued large volume watery diarrhea. Renal function improving with aggressive hydration. Bicarb replacement required. 06/02: Less diarrhea overnight. Renal function continues to improve. Well hydrated now but large volumes required to keep up with output. Objective Vital Signs Date Time Temp Pulse Resp B/P (MAP) Pulse Ox O2 Delivery O2 Flow Rate FiO2 06/02/17 08:00 98.4 66 16 134/63 (86) 97 06/02/17 07:00 Nasal Cannula 3.00 Intake and Output 06/02/17 06/02/17 06/03/17 08:00 16:00 00:00 Intake Total 1200 ml Output Total 1425 ml Balance -225 ml Result Diagram: 06/02/17 0435 06/02/17 0435 Imaging Last Impressions Abdomen/Pelvis CT 05/25/17 1428 Signed Impressions: Service Date/Time: Thursday, May 25, 2017 16:29 - CONCLUSION: 1. Severe small bowel and colonic distention to the level of the splenic flexure where there is a sharp transition zone. Obstructing neoplasm is not excluded. Willi Muñoz MD Foot X-Ray 05/25/17 1401 Signed Impressions: Service Date/Time: Thursday, May 25, 2017 15:01 - CONCLUSION: Spiral fracture fifth metatarsal. Delfin Mittal MD FACR Chest X-Ray 05/25/17 140 Signed Impressions: Service Date/Time: Thursday, May 25, 2017 14:59 - CONCLUSION: Moderate hyperinflation with pacer otherwise negative. Delfin Mittal MD FACR Objective Remarks GENERAL: Ill-appearing gentleman, alert and oriented SKIN: Warm and dry. Improving skin turgor HEAD: Atraumatic. Normocephalic. EYES: Pupils equal and round. No conjunctival icterus. No injection or drainage. ENT: No nasal bleeding or discharge. Mucous membranes moist. NECK: Trachea midline. Airway patent, unobstructed. CARDIOVASCULAR: Normal rate, regular rhythm. No JVD. NL S1S2, no m,r. RESPIRATORY: Clear to auscultation. Normal excursions. Breath sounds equal bilaterally. No adventitious sounds. GASTROINTESTINAL: Abdomen soft, non-tender, moderately distended. No guarding. BS active. No guarding. MUSCULOSKELETAL: Extremities without clubbing, cyanosis, or edema. Well perfused. NEUROLOGICAL: Ill-appearing. Awake and alert. No gross focal/sensory deficits. Follows commands in all 4 extremities. A/P Assessment and Plan Assessment This is a 66-year-old male patient with a history of C. difficile colitis, fungal esophagitis, duodenal ulcer, erosive gastritis previously hospitalized , now presenting with septic shock secondary to C. difficile colitis. Assessment: C. difficile colitis Possible Small bowel obstruction Anion gap metabolic acidosis Hypertension Diabetes mellitus Acute on chronic kidney injury Dehydration H/O MO Cardiomyopathy Tonic systolic congestive heart failure History of third-degree block status post pacemaker insertion H/O Afib RVR (03/12) Cardioverted Dementia mild Diabetic peripheral neuropathy History of tobacco abuse History of alcohol abuse Dyslipidemia Plan Plan by systems: Neurologic: Avoid sedative type medications Ofirmev IV every 6 hours when necessary Patient previously 14 shots of liquor per week, per old medical records (02/2017 ) 2 shots of Rum/day Monitor for signs of alcohol withdrawal Seizure precautions Continue donepezil 5 mg q hs, continue gabapentin Fluoxetine 40 mg /day Respiratory: Maintain O2 sat greater than 92% Bronchodilators every 4 hours when necessary for wheezing Currently O2 at 2 L nasal cannula H/O smoking 50 pack years. Counseled on smoking cessation Cardiovascular: Maintain MAP greater than 65mmHg Begin Levophed and Phenylephrine infusions to maintain MAP F/U Pacemaker interrogation Discontinue lisinopril BLAZE inhibitor in the setting of acute kidney injury Hold carvedilol 3.125 BID secondary to hypotension ASA 81mg placed on hold for now Monitor CVP Echo from previous hospital 02/27/17 EF 53% (Previously 30%) Renal: Insert selby -- Strict I/Os - Generally edematous -- EDGARDO, nonoliguric now. Bolus with NS. Hold bicarb gtt at 150. -- Add 40 KCL to iv fluid. -- Replace GI losses with NS boluses. -- Continue bicarb gtt. FEN/GI: Monitor electrolytes and replete Replete calcium 2GM calcium gluconate Normal Saline 150 cc/hour Patient previously on atorvastatin Follow LFTs Heme/ID: F/U LDH Obtain Procalcitonin level ID following Dr. Medina-IV Flagyl, by mouth Vanco 250mg QID F/U CEA levels Previously hospitalized 03/12/17 C. difficile colitis Endocrine: Glucose monitoring per ICU protocol medium dose regimen DC Levemir -- SSI Prophylaxis: GI Prophylaxis Protonix will change to famotidine in the setting of chronic kidney disease DVT Prophylaxis -- SCDs Heparin Lines: Peripheral IVs 2. Right radial A-line 05/26, right subclavian central line Overall impression: Patient with slowly improving severe colitis and obstructive bowel pattern; appears to be a colon malignancy at the splenic flexure but biopsies benign. Renal function improving as fluid and electrolyte losses are replaced. Repeat colonoscopy soon. Michael Cornelius MD Jun 02, 2017 11:06
[2017-06-02] MEDS: SODIUM BICARBONATE 8.4% INJ 150 MEQ in WATER STERILE FOR INJ 850 ML IV SCH (12:47)
--- NOTE | 2017-06-02 14:11 | HHI.GIFU ---
Subjective Remarks Resting in bed. States he is feeling better, less bloated. Not having any abdominal pain. Upset that he did not have colonoscopy today. Flexiseal with liquid stool. (Caridad Bradford) Objective Vitals I&O Vital Signs Date Time Temp Pulse Resp B/P (MAP) Pulse Ox O2 Delivery O2 Flow Rate FiO2 06/02/17 12:00 98.8 62 20 131/60 (83) 100 06/02/17 08:00 98.4 66 16 134/63 (86) 97 06/02/17 07:00 95 Nasal Cannula 3.00 06/02/17 04:00 98.6 78 18 120/61 (80) 96 06/02/17 00:00 98.5 66 22 113/56 (75) 96 06/01/17 22:24 98 Nasal Cannula 2.00 06/01/17 20:00 98.6 65 21 125/60 (81) 95 06/01/17 19:00 96 Nasal Cannula 3.00 06/01/17 16:00 98.4 70 22 129/62 (84) 93 06/01/17 15:00 69 I/O 06/01/17 06/01/17 06/01/17 06/02/17 06/02/17 06/02/17 07:00 15:00 23:00 07:00 15:00 23:00 Intake Total 3306 ml 100 ml 1820 ml 1200 ml 2100 ml Output Total 1100 ml 2750 ml 1425 ml Balance 2206 ml 100 ml -930 ml -225 ml 2100 ml Intake Oral 240 ml 720 ml IV Total 3066 ml 100 ml 1100 ml 1200 ml 2100 ml Output Urine Total 700 ml 900 ml 725 ml Stool Total 400 ml 1850 ml 700 ml Laboratory Laboratory Tests Test 06/02/17 04:35 White Blood Count 16.8 Red Blood Count 3.64 Hemoglobin 10.2 Hematocrit 31.9 Mean Corpuscular Volume 87.5 Mean Corpuscular Hemoglobin 28.0 Mean Corpuscular Hemoglobin Concent 32.0 Red Cell Distribution Width 16.1 Platelet Count 69 Mean Platelet Volume 8.7 CBC Comment AUTO DIFF Differential Total Cells Counted 100 Neutrophils % (Manual) 80 Band Neutrophils % 7 Lymphocytes % 5 Monocytes % 4 Eosinophils % 1 Neutrophils # (Manual) 15.1 Metamyelocytes 1 Myelocytes 2 Differential Comment FINAL DIFF MANUAL Dohle Bodies PRESENT Platelet Estimate LOW Platelet Morphology Comment NORMAL Blood Urea Nitrogen 34 Creatinine 1.81 Random Glucose 247 Total Protein 4.4 Albumin 1.1 Calcium Level 7.0 Alkaline Phosphatase 318 Aspartate Amino Transf (AST/SGOT) 19 Alanine Aminotransferase (ALT/SGPT) 8 Total Bilirubin 0.3 Sodium Level 145 Potassium Level 3.1 Chloride Level 109 Carbon Dioxide Level 23.5 Anion Gap 13 Estimat Glomerular Filtration Rate 38 Protein Corrected Calcium 8.5 Prealbumin 7 Date/Time Source Procedure Growth Status 05/29/17 00:55 Blood Peripheral Aerobic Blood Culture - Preliminary NO GROWTH IN 4 DAYS Resulted 05/29/17 00:55 Blood Peripheral Anaerobic Blood Culture - Preliminary NO GROWTH IN 4 DAYS Resulted 05/28/17 20:45 Urine Catheterized Urine Urine Culture - Final NO GROWTH IN 48 HOURS. Complete Imaging Last Impressions Enema w/Water Soluble 05/28/17 0000 Signed Impressions: Service Date/Time: May 15:14 - CONCLUSION: Limited examination. However, there is a focal high grade stricture involving the junction between the transverse colon and descending colon at the level of the splenic flexure on the left side. Neoplastic disease is the primary consideration. John Francois MD Chest X-Ray 05/27/17 0600 Signed Impressions: Service Date/Time: Saturday, May 27, 2017 05:19 - CONCLUSION: Developing left lung infiltrates. Forrest Green MD Abdomen Ultrasound 05/27/17 0000 Signed Impressions: Service Date/Time: Saturday, May 27, 2017 16:31 - CONCLUSION: Discordant velocities in imaging findings. CT angiography may be of benefit. Delfin Mittal MD FACR Abdomen/Pelvis CT 05/25/17 1428 Signed Impressions: Service Date/Time: Thursday, May 25, 2017 16:29 - CONCLUSION: 1. Severe small bowel and colonic distention to the level of the splenic flexure where there is a sharp transition zone. Obstructing neoplasm is not excluded. Willi Muñoz MD Foot X-Ray 05/25/17 1401 Signed Impressions: Service Date/Time: Thursday, May 25, 2017 15:01 - CONCLUSION: Spiral fracture fifth metatarsal. Delfin Mittal MD FACR Physical Exam HEENT: Normocephalic; atraumatic; no jaundice. CHEST: CTA CARDIAC: RRR ABDOMEN: Soft, nondistended, nontender; no hepatosplenomegaly; bowel sounds are present in all four quadrants. Flexiseal with liquid stool SKIN: Normal; no rash; no jaundice. PEDIATRIC NP: Awake and alert. (Caridad BradfordP) Assessment and Plan Plan ASSESSMENT - Abd pain, N/V/D. CT abdomen and pelvis (05/25/17)---> Severe small bowel and colonic distention to the level of the splenic flexure where this is a sharp transition zone. Obstructing neoplasm is not excluded. S/P Colonoscopy (05/27/17)---> 1. Stricture splenic flexure-scope could not be passed, multiple ulcers in sigmoid,descending, rectum-biopsy fro splenic flexure, rectum 2. Retroflexed views revealed internal hemorrhoids 3. Retroflexed views revealed small internal hemorrhoids. Pathology splenic flexure with colonic mucosa with no significant histopathologic abnormalities, acutely and chronically inflamed granulation tissue. Pt has CDiff. ? ischemia. Unable to have CTA secondary to EDGARDO. US Abdomen (05/27/17)---> Discordant velocities in imaging findings, CTA may be of benefit. CEA 3.0, Ca 19-9 28.3. Gastrografin Enema (05/28/17)---> Limited examination. However there is a focal high grade stricture involving the junction between the transverse colon and descending colon at the level of the splenic flexure on the left side. Neoplastic disease is the primary consideration. splenic flex bx benign, rectum bx acutely and chronically inflamed granulation tissue. GS following. Clinically, he is improved. Will schedule for colonoscopy in am with ultraslim colonoscope. Flagyl, Oral vanco. - CDiff Colitis, Epid 027. Oral Vanco, Flagyl. - Severe sepsis, leukocytosis. WBC 16.8. Flagyl, oral Vanco. Cefepime - Anemia. .231.9. - EDGARDO. Improved. Creat. better. Nephrology following - CMP, CHF, DM, Hyperlipidemia per attending. PLAN - Plan for colonoscopy in am with ultraslim colonoscope - Obtain consents - Clear liquids - NPO after MN - Golytely prep - Hold heparin after MN - Cont. oral Vanco - Cont. Flagyl - Monitor labs - General Surgery following - Supportive care - Consider CTA once kidney issues resolve, ? >50% stenosis in the celiac, sma - Patient seen and examined by Dr. Ray and myself and this note is written on his behalf (Caridad Bradford) Physician Comments Plan as above. Will try with thinner scope in AM. Further recommendations to follow based on above. (Robby Ray MD) Caridad Bradford Jun 02, 2017 14:11 Robby Ray MD Jun 02, 2017 14:31
[2017-06-02] MEDS ORDERED: PEG (High)/E-LYTE SOLN 4000 ML BTL PO ONE (14:15)
[2017-06-02] MEDS: CEFEPIME INJ 2,000 MG in SODIUM CHLORIDE 0.9% INJ 100 ML IV SCH (14:58)
--- NOTE | 2017-06-02 15:07 | HHI.PR ---
Subjective Subjective Notes no acute issues, tolerating po, still high output diarrhea, pain better Objective Vitals/I&O Vital Signs Date Time Temp Pulse Resp B/P (MAP) Pulse Ox O2 Delivery O2 Flow Rate FiO2 06/02/17 12:00 98.8 62 20 131/60 (83) 100 06/02/17 07:00 Nasal Cannula 3.00 Labs Laboratory Tests Test 06/02/17 04:35 White Blood Count 16.8 Red Blood Count 3.64 Hemoglobin 10.2 Hematocrit 31.9 Mean Corpuscular Volume 87.5 Mean Corpuscular Hemoglobin 28.0 Mean Corpuscular Hemoglobin Concent 32.0 Red Cell Distribution Width 16.1 Platelet Count 69 Mean Platelet Volume 8.7 CBC Comment AUTO DIFF Differential Total Cells Counted 100 Neutrophils % (Manual) 80 Band Neutrophils % 7 Lymphocytes % 5 Monocytes % 4 Eosinophils % 1 Neutrophils # (Manual) 15.1 Metamyelocytes 1 Myelocytes 2 Differential Comment FINAL DIFF MANUAL Dohle Bodies PRESENT Platelet Estimate LOW Platelet Morphology Comment NORMAL Blood Urea Nitrogen 34 Creatinine 1.81 Random Glucose 247 Total Protein 4.4 Albumin 1.1 Calcium Level 7.0 Alkaline Phosphatase 318 Aspartate Amino Transf (AST/SGOT) 19 Alanine Aminotransferase (ALT/SGPT) 8 Total Bilirubin 0.3 Sodium Level 145 Potassium Level 3.1 Chloride Level 109 Carbon Dioxide Level 23.5 Anion Gap 13 Estimat Glomerular Filtration Rate 38 Protein Corrected Calcium 8.5 Prealbumin 7 Date/Time Source Procedure Growth Status 05/29/17 00:55 Blood Peripheral Aerobic Blood Culture - Preliminary NO GROWTH IN 4 DAYS Resulted 05/29/17 00:55 Blood Peripheral Anaerobic Blood Culture - Preliminary NO GROWTH IN 4 DAYS Resulted 05/28/17 20:45 Urine Catheterized Urine Urine Culture - Final NO GROWTH IN 48 HOURS. Complete Radiology Last Impressions Enema w/Water Soluble 05/28/17 0000 Signed Impressions: Service Date/Time: May 15:14 - CONCLUSION: Limited examination. However, there is a focal high grade stricture involving the junction between the transverse colon and descending colon at the level of the splenic flexure on the left side. Neoplastic disease is the primary consideration. John Francois MD Chest X-Ray 05/27/17 0600 Signed Impressions: Service Date/Time: Saturday, May 27, 2017 05:19 - CONCLUSION: Developing left lung infiltrates. Forrest Green MD Abdomen Ultrasound 05/27/17 0000 Signed Impressions: Service Date/Time: Saturday, May 27, 2017 16:31 - CONCLUSION: Discordant velocities in imaging findings. CT angiography may be of benefit. Delfin Mittal MD FACR Abdomen/Pelvis CT 05/25/17 1428 Signed Impressions: Service Date/Time: Thursday, May 25, 2017 16:29 - CONCLUSION: 1. Severe small bowel and colonic distention to the level of the splenic flexure where there is a sharp transition zone. Obstructing neoplasm is not excluded. Willi Muñoz MD Foot X-Ray 05/25/17 1401 Signed Impressions: Service Date/Time: Thursday, May 25, 2017 15:01 - CONCLUSION: Spiral fracture fifth metatarsal. Delfin Mittal MD FACR Abdomen: Other (soft nt/nd) A/P Problem List: (1) C. difficile diarrhea ICD Codes: A04.72 - Enterocolitis due to Clostridium difficile, not specified as recurrent Status: Acute (2) Left foot infection ICD Codes: L08.9 - Local infection of the skin and subcutaneous tissue, unspecified Status: Chronic (3) Diabetic infection of left foot ICD Codes: E11.69 - Type 2 diabetes mellitus with other specified complication ; L08.9 - Local infection of the skin and subcutaneous tissue, unspecified Status: Chronic (4) DKA (diabetic ketoacidoses) ICD Codes: E13.10 - Other specified diabetes mellitus with ketoacidosis without coma Status: Resolved (5) DM (diabetes mellitus) ICD Codes: E11.9 - Type 2 diabetes mellitus without complications Status: Chronic (6) HTN (hypertension) ICD Codes: I10 - Essential (primary) hypertension Status: Chronic Assessment and Plan 66 year old male with diarrhea; diffuse abdominal distention---? neoplastic mass -npo for possible scope, discuss option pending results -GGE--- high grade stricture between transverse colon and descending colon -Will need to be re-scoped at some point to eval again -Follow WBC --stable -CCM following -Nephrology following ---renal function improved today -ID following---- + c-diff---on Oral Vanco and Flagyl Problem Qualifiers (1) HTN (hypertension): Qualified Codes: I10 - Essential (primary) hypertension Michael Soares MD Jun 02, 2017 15:07
[2017-06-02] MEDS: DONEPEZIL HCL 5 MG TAB PO SCH (21:22)
--- NOTE | 2017-06-02 22:10 | HHI.NPPN ---
Subjective History of Present Illness 66-year-old male with past medical history of diabetes mellitus for more than 10 years, history of chronic kidney disease and acute kidney injury off and on, hypertension, history of hypertension, chronic obstructive pulmonary disease, AV block with post pacemaker placement who came to the hospital with complaint of abdominal pain, distension and nausea, vomiting with diarrhea. I was called to see the patient because of elevated BUN and creatinine. The patient has a creatinine of 1.5 on presentation which has been getting worse and now is 4.1. Additional Remarks Patient is alert, not eating well, still has loose BM, not in distress, started on [place]. Review of Systems General Constitutional: Fatigue Cardiovascular Cardiac: DUARTE Gastrointestinal Gastrointestinal: Abdominal Pain Objective Data Data 06/02/17 06/03/17 19:00 07:00 Intake Total 6126 ml 1000 ml Output Total 3475 ml Balance 2651 ml 1000 ml Intake Oral 3000 ml IV Total 3126 ml 1000 ml Output Urine Total 675 ml Stool Total 2800 ml Vital Signs Date Time Temp Pulse Resp B/P (MAP) Pulse Ox O2 Delivery O2 Flow Rate FiO2 06/02/17 20:00 66 06/02/17 20:00 98.8 65 20 123/59 (80) 95 06/02/17 19:00 95 Nasal Cannula 3.00 06/02/17 16:15 98.3 66 18 133/66 (88) 98 06/02/17 12:00 98.8 62 20 131/60 (83) 100 06/02/17 08:00 98.4 66 16 134/63 (86) 97 06/02/17 07:00 95 Nasal Cannula 3.00 06/02/17 04:00 98.6 78 18 120/61 (80) 96 06/02/17 00:00 98.5 66 22 113/56 (75) 96 06/01/17 22:24 98 Nasal Cannula 2.00 -: 06/02/17 0435 06/02/17 0435 Physical Exam General Appearance: No Acute Distress, Comfortable Eyes Eye Exam: Pupils Equal Pulmonary Resp Exam: Breath Sounds Equal, No Distress, Rhonchi, Decreased Bases, Diminished Breath Sounds Cardiology CV Exam: Regular, Normal Sinus Rhythm Gastrointestinal/Abdomen GI Exam: Soft, Non-Tender, Bowel Sounds Present, Non-Distended Extremeties Extremities Exam: Trace Edema Neurologic Neuro Exam: Alert, Awake, Oriented Psychiatric Psych Exam: Appropriate Responses Assessment/Plan Assessment Summary: EDGARDO/Acute Renal Failure Electrolyte Assessment: Hypokalemia, Metabolic Acidosis Problem List: (1) Hypokalemia ICD Codes: E87.6 - Hypokalemia (2) Metabolic acidosis ICD Codes: E87.2 - Acidosis (3) Nausea and vomiting in adult ICD Codes: R11.2 - Nausea with vomiting, unspecified Status: Acute (4) HTN (hypertension) ICD Codes: I10 - Essential (primary) hypertension Status: Chronic (5) DM (diabetes mellitus) ICD Codes: E11.9 - Type 2 diabetes mellitus without complications Status: Chronic (6) Hyperglycemia ICD Codes: R73.9 - Hyperglycemia, unspecified; L08.9 - Local infection of the skin and subcutaneous tissue, unspecified Status: Acute (7) Dehydration ICD Codes: E86.0 - Dehydration Status: Acute (8) EDGARDO (acute kidney injury) ICD Codes: N17.9 - Acute kidney failure, unspecified Status: Acute Plan Patient most likely has chronic kidney disease, and now develop EDGARDO. Has minimal proteinuria, K is low, and has metabolic acidosis. Has large amount of liquid stool. Urine K is low, has non renal loss. On IVF with NaHco3. Non oliguric, has adequate urine out put. Avoid Nephrotoxins, Creatinine is improving and K is better. Encourage oral intake. Need colonoscopy, K and calcium low, replaced. Follow the urine out put and BMP. Problem Qualifiers (1) HTN (hypertension): Qualified Codes: I10 - Essential (primary) hypertension Jerrod Noel MD Jun 02, 2017 22:10
[2017-06-03] VITALS (12 sets, daily range): BP systolic 102–137; BP diastolic 53–65; PULSE 59–86; RESP 14–23; TEMP 98.2–98.9; O2SAT 94–96
[2017-06-03] MEDS: metroNIDAZOLE 500 MG INJ 100 ML IV SCH ×4 (00:09→17:33)
[2017-06-03] MEDS: FAMOTIDINE 20 MG/2 ML VIAL IV PUSH SCH ×2 (04:31→14:43)
[2017-06-03] MEDS: NS + KCL 40 MEQ INJ 1,000 ML IV SCH ×3 (04:36→19:43)
[2017-06-03 04:57] LABS: BASOPHIL # 0.1 TH/MM3 (0-0.2); BASOPHIL % 0.4 % (0.0-2.0); EOSINOPHIL # 0.1 TH/MM3 (0-0.4); EOSINOPHIL % 0.8 % (0.0-4.0); HEMATOCRIT 29.6 % (39.0-51.0); LYMPH % 11.4 % (9.0-44.0); LYMPHOCYTE # 1.6 TH/MM3 (1.0-4.8); MEAN CELL VOLUME 86.8 FL (80.0-100.0); MEAN CORPUSCULAR HEMOGLOBIN 28.8 PG (27.0-34.0); MEAN CORPUSCULAR HGB CONC 33.2 % (32.0-36.0); MONO % 4.1 % (0.0-8.0); NEUT % 83.3 % (16.0-70.0); PLATELET COUNT 76 TH/MM3 (150-450); RED BLOOD COUNT 3.41 MIL/MM3 (4.50-5.90); WHITE BLOOD COUNT 14.4 TH/MM3 (4.0-11.0)
[2017-06-03 05:05] LABS: HEMO FLAGS AUTO DIFF
[2017-06-03 05:27] LABS: BICARBONATE 27.5 MEQ/L (21.0-32.0); POTASSIUM 3.1 MEQ/L (3.5-5.1)
[2017-06-03 06:03] LABS: CALCIUM-PROTEIN CORRECTED 8.2 MG/DL (8.5-10.1)
[2017-06-03 06:48] LABS: BANDS 2 % (0-6); EOSINOPHILS 1 % (0-4); METAMYELOCYTES 2 % (0-1); MYELOCYTES 1 % (0-0); NEUTROPHIL # MANUAL DIFF 12.2 TH/MM3 (1.8-7.7); PLATELET ESTIMATE SMEAR LOW (NORMAL); PLATELET MORPHOLOGY NORMAL (NORMAL); POLYS (SEG NEUTROPHILS) 80 % (16-70); SCAN/DIFF FINAL DIFF MANUAL; WBC DIFF SAMPLE 100
--- NOTE | 2017-06-03 07:22 | HHI.CCPN ---
Subjective Remarks/Hospital Course This is a a 66 year old male with a history of diabetes mellitus type 1, diabetic ulcer, 3rd degree heart block S/p pacemaker placement that presented to the emergency department on 05/25/2017 due to sudden onset of abdominal pain , nausea and vomiting. He has not had a bowel movement in 3 days. On arrival, patient has leukocytosis with WBC count 20.1K, lactic acid 4.7. CT abdomen pelvis shows small bowel and colonic distention with transition point at the splenic flexure. CT abdomen and pelvis also indicated possibility of neoplasm causing obstruction. Patient denies any headache, chest pain, cough, shortness of breath. denies any Dysuria and hematuria. Of note, patient has lost 20-30 lbs in the recent months. The patient was admitted to the medical floor, throughout the night the patient condition deteriorated became hemodynamically unstable, systolic blood pressures in the 80s. Critical care medicine was consulted. The patient was transferred to the [facility] [place], upon presentation the patient was noted to have a blood pressure 79/50, HR 90's the patient was bolused 2 L of normal saline IV fluid right regarding A-line was placed the patient was placed on low dose phenylephrine infusion 20 mcgs. Consent was obtained and a right subclavian central line was placed the patient received a third liter IV fluids labs are pending at this time. Of note patient previously at [facility] in [place] when noted to have biopsies records not obtained at this time reveals abnormal pathology unknown. CEA levels pending. 05/27: Requires FMS for corrosive diarrhea. Plan for colonoscopy today; looking specifically for tumor at splenic flexure. Renal function continues to deteriorate. 05/28: Contrast study reveals high grade stricture at splenic flexure - likely a malignancy. 05/29: Continued metabolic acidosis from sepsis, dehydration from GI losses. Bacteroides in blood. Renal function deteriorating but urine output finally increasing. Continue bicarb gtt. 05/30: Base deficit corrected now after hydration and bicarb infusion. Profuse liters of watery diarrhea continues. Renal function improving after aggressive hydration. He remains very thirsty. 05/31: Large fluid losses from 4+ liter watery diarrhea, matched with intravenous replacement. Elevated K this morning likely an error, recheck, adjust K replacement. 06/01: Continued large volume watery diarrhea. Renal function improving with aggressive hydration. Bicarb replacement required. 06/02: Less diarrhea overnight. Renal function continues to improve. Well hydrated now but large volumes required to keep up with output. 06/03: Renal function continues to improve. Bicarb corrected. Plan for colonoscopy today. Objective Vital Signs Date Time Temp Pulse Resp B/P (MAP) Pulse Ox O2 Delivery O2 Flow Rate FiO2 06/03/17 06:00 66 06/03/17 04:00 98.2 16 107/58 (74) 95 06/02/17 21:29 Nasal Cannula 2.00 Intake and Output 06/03/17 06/03/17 06/04/17 08:00 16:00 00:00 Intake Total 3200 ml Output Total 4800 ml Balance -1600 ml Result Diagram: 06/03/1743906/03/17 044 Imaging Last Impressions Abdomen/Pelvis CT 05/25/17 1428 Signed Impressions: Service Date/Time: Thursday, May 25, 2017 16:29 - CONCLUSION: 1. Severe small bowel and colonic distention to the level of the splenic flexure where there is a sharp transition zone. Obstructing neoplasm is not excluded. Willi Muñoz MD Foot X-Ray 05/25/17 140 Signed Impressions: Service Date/Time: Thursday, May 25, 2017 15:01 - CONCLUSION: Spiral fracture fifth metatarsal. Delfin Mittal MD FACR Chest X-Ray 05/25/171400 Signed Impressions: Service Date/Time: Thursday, May 25, 2017 14:59 - CONCLUSION: Moderate hyperinflation with pacer otherwise negative. Delfin Mittal MD FACR Objective Remarks GENERAL: Ill-appearing gentleman, alert and oriented SKIN: Warm and dry. Improving skin turgor HEAD: Atraumatic. Normocephalic. EYES: Pupils equal and round. No conjunctival icterus. No injection or drainage. ENT: Mucous membranes moist. NECK: Trachea midline. Airway patent, unobstructed. CARDIOVASCULAR: Normal rate, regular rhythm. No JVD. NL S1S2, no m,r. RESPIRATORY: Clear to auscultation. Normal excursions. Breath sounds equal bilaterally. No adventitious sounds. GASTROINTESTINAL: Abdomen soft, non-tender, moderately distended. No guarding. BS active. No guarding. MUSCULOSKELETAL: Extremities without clubbing, cyanosis, or edema. Well perfused. NEUROLOGICAL: Calm. Awake and alert. No gross focal/sensory deficits. Follows commands in all 4 extremities. A/P Assessment and Plan Assessment This is a 66-year-old male patient with a history of C. difficile colitis, fungal esophagitis, duodenal ulcer, erosive gastritis previously hospitalized , now presenting with septic shock secondary to C. difficile colitis. Assessment: C. difficile colitis Possible Small bowel obstruction Anion gap metabolic acidosis Hypertension Diabetes mellitus Acute on chronic kidney injury Dehydration H/O NC Cardiomyopathy Tonic systolic congestive heart failure History of third-degree block status post pacemaker insertion H/O Afib RVR (03/12) Cardioverted Dementia mild Diabetic peripheral neuropathy History of tobacco abuse History of alcohol abuse Dyslipidemia Plan Plan by systems: Neurologic: Avoid sedative type medications Ofirmev IV every 6 hours when necessary Patient previously 14 shots of liquor per week, per old medical records (02/2017 ) 2 shots of Rum/day Monitor for signs of alcohol withdrawal Seizure precautions Continue donepezil 5 mg q hs, continue gabapentin Fluoxetine 40 mg /day Respiratory: Maintain O2 sat greater than 92% Bronchodilators every 4 hours when necessary for wheezing Currently O2 at 2 L nasal cannula H/O smoking 50 pack years. Counseled on smoking cessation Cardiovascular: Maintain MAP greater than 65mmHg Begin Levophed and Phenylephrine infusions to maintain MAP F/U Pacemaker interrogation Discontinue lisinopril BLAZE inhibitor in the setting of acute kidney injury Hold carvedilol 3.125 BID secondary to hypotension ASA 81mg placed on hold for now Echo from previous hospital 02/27/17 EF 53% (Previously 30%) Renal: Insert selby -- Strict I/Os - Generally edematous -- EDGARDO, nonoliguric now. Bolus with NS. Hold bicarb gtt at 150. -- Add 40 KCL to iv fluid. -- Replace GI losses with NS boluses. -- Continue bicarb gtt, reduce to 25 ml/hr. FEN/GI: Monitor electrolytes and replete Replete calcium 2GM calcium gluconate Normal Saline 150 cc/hour Patient previously on atorvastatin Follow LFTs Heme/ID: F/U LDH Obtain Procalcitonin level ID following Dr. Medina-IV Flagyl, by mouth Vanco 250mg QID F/U CEA levels Previously hospitalized 03/12/17 C. difficile colitis Endocrine: Glucose monitoring per ICU protocol medium dose regimen DC Levemir -- SSI Prophylaxis: GI Prophylaxis Protonix will change to famotidine in the setting of chronic kidney disease DVT Prophylaxis -- SCDs Heparin Lines: Peripheral IVs 2. Right radial A-line 05/26, right subclavian central line Overall impression: Patient with slowly improving severe colitis and obstructive bowel pattern; appears to be a colon malignancy at the splenic flexure but biopsies benign. Renal function improving as fluid and electrolyte losses are replaced. Repeat colonoscopy today. Michael Cornelius MD Jun 03, 2017 07:22
[2017-06-03] MEDS: INSULIN ASPART SUPPLEMENTAL SCALE SQ SCH ×4 (08:00→21:57)
[2017-06-03] MEDS: INSULIN DETEMIR 100 UNITS/ML VIAL SQ SCH ×2 (09:00→21:56)
[2017-06-03] MEDS: FLUoxetine HCL 20 MG CAP PO SCH (09:17)
[2017-06-03] MEDS: GABAPENTIN 100 MG CAP PO SCH ×3 (09:17→17:33)
[2017-06-03] MEDS: SODIUM CHLORIDE 0.9% FLUSH 10 ML FLUSH IV FLUSH SCH ×2 (09:17→21:00)
[2017-06-03] MEDS: VANCOMYCIN 500 MG VIAL (FOR ORAL USE ONLY) PO SCH ×4 (09:18→21:57)
[2017-06-03] MEDS: COLLAGENASE OINT 30 GM TUBE TOPICAL SCH (09:18)
[2017-06-03] MEDS: SODIUM BICARBONATE 8.4% INJ 150 MEQ in WATER STERILE FOR INJ 850 ML IV SCH ×2 (10:24→11:02)
--- NOTE | 2017-06-03 11:13 | HHI.PR ---
cc: Michael Soares MD Subjective Subjective Notes Doing well Complete resolution of abdominal pain Awaiting colonoscopy today Objective Vitals/I&O Vital Signs Date Time Temp Pulse Resp B/P (MAP) Pulse Ox O2 Delivery O2 Flow Rate FiO2 06/03/17 10:00 71 06/03/17 08:39 96 Nasal Cannula 2.00 06/03/17 08:00 98.7 18 119/57 (77) Labs Laboratory Tests Test 06/03/17 04:40 White Blood Count 14.4 Red Blood Count 3.41 Hemoglobin 9.8 Hematocrit 29.6 Mean Corpuscular Volume 86.8 Mean Corpuscular Hemoglobin 28.8 Mean Corpuscular Hemoglobin Concent 33.2 Red Cell Distribution Width 16.0 Platelet Count 76 Mean Platelet Volume 8.9 Neutrophils (%) (Auto) 83.3 Lymphocytes (%) (Auto) 11.4 Monocytes (%) (Auto) 4.1 Eosinophils (%) (Auto) 0.8 Basophils (%) (Auto) 0.4 Neutrophils # (Auto) 12.0 Lymphocytes # (Auto) 1.6 Monocytes # (Auto) 0.6 Eosinophils # (Auto) 0.1 Basophils # (Auto) 0.1 CBC Comment AUTO DIFF Differential Total Cells Counted 100 Neutrophils % (Manual) 80 Band Neutrophils % 2 Lymphocytes % 12 Monocytes % 2 Eosinophils % 1 Neutrophils # (Manual) 12.2 Metamyelocytes 2 Myelocytes 1 Differential Comment FINAL DIFF MANUAL Platelet Estimate LOW Platelet Morphology Comment NORMAL Blood Urea Nitrogen 28 Creatinine 1.48 Random Glucose 161 Total Protein 4.4 Calcium Level 6.8 Sodium Level 144 Potassium Level 3.1 Chloride Level 110 Carbon Dioxide Level 27.5 Anion Gap 7 Estimat Glomerular Filtration Rate 47 Protein Corrected Calcium 8.2 Date/Time Source Procedure Growth Status 05/29/17 00:55 Blood Peripheral Aerobic Blood Culture - Final NO GROWTH IN 5 DAYS Complete 05/29/17 00:55 Blood Peripheral Anaerobic Blood Culture - Final NO GROWTH IN 5 DAYS Complete 05/28/17 20:45 Urine Catheterized Urine Urine Culture - Final NO GROWTH IN 48 HOURS. Complete Radiology Last Impressions Enema w/Water Soluble 05/28/17 0000 Signed Impressions: Service Date/Time: May 15:14 - CONCLUSION: Limited examination. However, there is a focal high grade stricture involving the junction between the transverse colon and descending colon at the level of the splenic flexure on the left side. Neoplastic disease is the primary consideration. John Francois MD Chest X-Ray 05/27/17 0600 Signed Impressions: Service Date/Time: Saturday, May 27, 2017 05:19 - CONCLUSION: Developing left lung infiltrates. Forrest Green MD Abdomen Ultrasound 05/27/17 0000 Signed Impressions: Service Date/Time: Thursday, May 27, 2017 16:31 - CONCLUSION: Discordant velocities in imaging findings. CT angiography may be of benefit. Delfin Mittal MD FACR Abdomen/Pelvis CT 05/25/17 1428 Signed Impressions: Service Date/Time: Thursday, May 25, 2017 16:29 - CONCLUSION: 1. Severe small bowel and colonic distention to the level of the splenic flexure where there is a sharp transition zone. Obstructing neoplasm is not excluded. Willi Muñoz MD Foot X-Ray 05/25/17 1401 Signed Impressions: Service Date/Time: Thursday, May 25, 2017 15:01 - CONCLUSION: Spiral fracture fifth metatarsal. Delfin Mittal MD FACR Cardiovascular: Regular Lungs: Clear Abdomen: Non-distended, Non-tender Extremities: No edema Narrative Exam Rectal bag with liquid stool A/P Problem List: (1) C. difficile diarrhea ICD Codes: A04.72 - Enterocolitis due to Clostridium difficile, not specified as recurrent Status: Acute (2) Left foot infection ICD Codes: L08.9 - Local infection of the skin and subcutaneous tissue, unspecified Status: Chronic (3) Diabetic infection of left foot ICD Codes: E11.69 - Type 2 diabetes mellitus with other specified complication ; L08.9 - Local infection of the skin and subcutaneous tissue, unspecified Status: Chronic (4) DKA (diabetic ketoacidoses) ICD Codes: E13.10 - Other specified diabetes mellitus with ketoacidosis without coma Status: Resolved (5) DM (diabetes mellitus) ICD Codes: E11.9 - Type 2 diabetes mellitus without complications Status: Chronic (6) HTN (hypertension) ICD Codes: I10 - Essential (primary) hypertension Status: Chronic Assessment and Plan 66 year old male with diarrhea; diffuse abdominal distention---? neoplastic mass -NPO for colonoscopy today -GGE--- high grade stricture between transverse colon and descending colon -Follow WBC ---trending down now -CCM following -Nephrology following ---renal function continuing to improve -ID following---- + c-diff---on Oral Vanco and Flagyl Attending Statement patient seen at bedside pain better colonoscopy pending await results still with high output diarrhea Attestation The exam, history, and the medical decision-making described in the above note were completed with the assistance of the mid-level provider. I reviewed and agree with the findings presented. I attest that I had a [id number] encounter with the patient on the same day, and personally performed and documented my assessment and findings in the medical record. Problem Qualifiers (1) HTN (hypertension): Qualified Codes: I10 - Essential (primary) hypertension Marianne Torres Jun 03, 2017 11:13 Michael Soares MD Jun 05, 2017 14:27
[2017-06-03] MEDS ORDERED: LIDOCAINE HCL 1% PF 5 ML AMPULE OTHER ONE (12:00)
[2017-06-03] MEDS ORDERED: PROPOFOL 200 MG/20 ML AMP IV ONE (12:00)
[2017-06-03] MEDS ORDERED: ePHEDrine/NS 25 MG/5 ML SYR IV ONE (12:00)
[2017-06-03] MEDS ORDERED: POTASSIUM CHLOR 40 MEQ PREMIX 100 ML IV ONE (13:00)
--- NOTE | 2017-06-03 17:20 | GIPROC ---
[facility] [address] [facility]. [facility], [id number] COLONOSCOPY PROCEDURE REPORT EXAM DATE: 06/03/2017 PATIENT NAME: Aristides Gutierrez MR #: [id number] BIRTHDATE: 1950 ENDOSCOPIST: Robby Ray MD ORDER #: [id number] MATERIAL SCHEDULER: Endy Lmia and Ashia Talbot STATUS: inpatient INDICATIONS: The patient is a 66 yr old male here for a colonoscopy due to an abnormal imaging results PROCEDURE PERFORMED: Colonoscopy with biopsy MEDICATIONS: Per Anesthesia and None. PREP QUALITY: poor PREP TYPE:GoLytely ESTIMATED BLOOD LOSS: None CONSENT: The patient understands the risks and benefits of the procedure and understands that these risks include, but are not limited to: sedation, allergic reaction, infection, perforation and/or bleeding. Alternative means of evaluation and treatment include, among others: physical exam, x-rays, and/or surgical intervention. The patient elects to proceed with this endoscopic procedure. medical equipment was checked for proper function. Hand hygiene and appropriate measures for infection prevention was taken. After the risks, benefits and alternatives of the procedure were thoroughly explained, Informed consent was verified, confirmed and timeout was successfully executed by the treatment team. A digital exam revealed no abnormalities of the rectum The New [id number] (Std Gastro) endoscope was introduced through the anus and advanced to the cecum, which was identified by both the appendix and ileocecal valve. The instrument was then slowly withdrawn as the colon was fully examined. COLON FINDINGS: Multiple large non-bleeding, irregular shaped and clean-based ulcers were found in the sigmoid colon, at the splenic flexure, and in the descending colon. A large non-bleeding, irregular shaped and clean-based ulcer with surrounding edema was found in the transverse colon. Biopsies were taken at edge of the ulcer and at the center of the ulcer. Retroflexion was not performed The scope was then completely withdrawn from the patient and the procedure terminated. PROCEDURE WITHDRAWAL TIME:8minutes ADVERSE EVENTS: There were no complications. IMPRESSIONS: 1. Multiple large ulcers were found in the sigmoid colon, at the splenic flexure, and in the descending colon 2. Large ulcer was found in the transverse colon with colonic stricture scope could not pass beyond; biopsies were taken RECOMMENDATIONS: Await biopsy results. Biopsy results will not be ready for 7-10 days. If you don't hear from us in two weeks, call our office for results. RECALL: NONE Robby Ray MD eSigned: Robby Ray MD 06/03/2017 5:20 PM cc: PATIENT NAME: Aristides Gutierrez MR#: [id number]
--- NOTE | 2017-06-03 21:08 | HHI.NPPN ---
Subjective History of Present Illness 66-year-old male with past medical history of diabetes mellitus for more than 10 years, history of chronic kidney disease and acute kidney injury off and on, hypertension, history of hypertension, chronic obstructive pulmonary disease, AV block with post pacemaker placement who came to the hospital with complaint of abdominal pain, distension and nausea, vomiting with diarrhea. I was called to see the patient because of elevated BUN and creatinine. The patient has a creatinine of 1.5 on presentation which has been getting worse and now is 4.1. Additional Remarks Patient is alert, not eating well, still has loose BM, seen before colonoscopy. Review of Systems General Constitutional: Fatigue Cardiovascular Cardiac: DUARTE Gastrointestinal Gastrointestinal: Abdominal Pain Objective Data Data 06/03/17 06/04/17 19:00 07:00 Intake Total 3052 ml 900 ml Output Total 2300 ml Balance 752 ml 900 ml Intake Oral 0 ml IV Total 2852 ml 900 ml Other 200 ml Output Urine Total 700 ml Stool Total 1600 ml Vital Signs Date Time Temp Pulse Resp B/P (MAP) Pulse Ox O2 Delivery O2 Flow Rate FiO2 06/03/17 18:00 69 06/03/17 16:00 68 06/03/17 16:00 98.8 68 14 119/58 (78) 96 06/03/17 14:00 67 06/03/17 12:00 98.9 75 20 130/63 (85) 94 06/03/17 12:00 75 06/03/17 10:00 71 06/03/17 08:39 96 Nasal Cannula 2.00 06/03/17 08:00 98.7 59 18 119/57 (77) 96 06/03/17 08:00 59 06/03/17 07:00 95 Nasal Cannula 3.00 06/03/17 06:00 66 06/03/17 04:00 98.2 72 16 107/58 (74) 95 06/03/17 04:00 72 06/03/17 02:00 71 06/03/17 00:00 69 06/03/17 00:00 98.5 69 17 102/53 (69) 94 06/02/17 22:00 62 06/02/17 21:29 97 Nasal Cannula 2.00 -: 06/03/17 0440 06/03/17 0440 Physical Exam General Appearance: No Acute Distress, Comfortable Eyes Eye Exam: Pupils Equal Pulmonary Resp Exam: Breath Sounds Equal, No Distress, Rhonchi, Decreased Bases, Diminished Breath Sounds Cardiology CV Exam: Regular, Normal Sinus Rhythm Gastrointestinal/Abdomen GI Exam: Soft, Non-Tender, Bowel Sounds Present, Non-Distended Extremeties Extremities Exam: Trace Edema Neurologic Neuro Exam: Alert, Awake, Oriented Psychiatric Psych Exam: Appropriate Responses Assessment/Plan Assessment Summary: EDGARDO/Acute Renal Failure Electrolyte Assessment: Hypokalemia, Metabolic Acidosis Problem List: (1) Hypokalemia ICD Codes: E87.6 - Hypokalemia (2) Metabolic acidosis ICD Codes: E87.2 - Acidosis (3) Nausea and vomiting in adult ICD Codes: R11.2 - Nausea with vomiting, unspecified Status: Acute (4) HTN (hypertension) ICD Codes: I10 - Essential (primary) hypertension Status: Chronic (5) DM (diabetes mellitus) ICD Codes: E11.9 - Type 2 diabetes mellitus without complications Status: Chronic (6) Hyperglycemia ICD Codes: R73.9 - Hyperglycemia, unspecified; L08.9 - Local infection of the skin and subcutaneous tissue, unspecified Status: Acute (7) Dehydration ICD Codes: E86.0 - Dehydration Status: Acute (8) EDGARDO (acute kidney injury) ICD Codes: N17.9 - Acute kidney failure, unspecified Status: Acute Plan Patient most likely has chronic kidney disease, and now develop EDGARDO. Has minimal proteinuria, K is low, and has metabolic acidosis. Has large amount of liquid stool. Urine K is low, has non renal loss. On IVF with NaHco3. Non oliguric, has adequate urine out put. Avoid Nephrotoxins, Creatinine is improving and K is better. Encourage oral intake. For colonoscopy, K and calcium low, replaced. Continue IVF, and follow the BMP. Problem Qualifiers (1) HTN (hypertension): Qualified Codes: I10 - Essential (primary) hypertension Jerrod Noel MD Jun 03, 2017 21:08
[2017-06-03] MEDS: DONEPEZIL HCL 5 MG TAB PO SCH (21:57)
[2017-06-04] VITALS (9 sets, daily range): BP systolic 110–140; BP diastolic 55–69; PULSE 74–81; RESP 18–21; TEMP 98.2–99.5; O2SAT 93–95
[2017-06-04] MEDS: FAMOTIDINE 20 MG/2 ML VIAL IV PUSH SCH (03:30)
[2017-06-04] MEDS: metroNIDAZOLE 500 MG INJ 100 ML IV SCH ×4 (03:33→17:22)
[2017-06-04] MEDS: NS + KCL 40 MEQ INJ 1,000 ML IV SCH ×2 (03:41→06:31)
[2017-06-04 07:08] LABS: BICARBONATE 24.9 MEQ/L (21.0-32.0); MAGNESIUM 1.3 MG/DL (1.5-2.5); POTASSIUM 3.8 MEQ/L (3.5-5.1)
[2017-06-04 07:40] LABS: CALCIUM-PROTEIN CORRECTED 8.2 MG/DL (8.5-10.1)
[2017-06-04] MEDS: INSULIN ASPART SUPPLEMENTAL SCALE SQ SCH ×4 (08:00→20:36)
--- NOTE | 2017-06-04 08:37 | HHI.CCPN ---
Subjective Remarks/Hospital Course This is a a 66 year old male with a history of diabetes mellitus type 1, diabetic ulcer, 3rd degree heart block S/p pacemaker placement that presented to the emergency department on 05/25/2017 due to sudden onset of abdominal pain , nausea and vomiting. He has not had a bowel movement in 3 days. On arrival, patient has leukocytosis with WBC count 20.1K, lactic acid 4.7. CT abdomen pelvis shows small bowel and colonic distention with transition point at the splenic flexure. CT abdomen and pelvis also indicated possibility of neoplasm causing obstruction. Patient denies any headache, chest pain, cough, shortness of breath. denies any Dysuria and hematuria. Of note, patient has lost 20-30 lbs in the recent months. The patient was admitted to the medical floor, throughout the night the patient condition deteriorated became hemodynamically unstable, systolic blood pressures in the 80s. Critical care medicine was consulted. The patient was transferred to the [facility], upon presentation the patient was noted to have a blood pressure 79/50, HR 90's the patient was bolused 2 L of normal saline IV fluid right regarding A-line was placed the patient was placed on low dose phenylephrine infusion 20 mcgs. Consent was obtained and a right subclavian central line was placed the patient received a third liter IV fluids labs are pending at this time. Of note patient previously at [facility] in [place] when noted to have biopsies records not obtained at this time reveals abnormal pathology unknown. CEA levels pending. 05/27: Requires FMS for corrosive diarrhea. Plan for colonoscopy today; looking specifically for tumor at splenic flexure. Renal function continues to deteriorate. 05/28: Contrast study reveals high grade stricture at splenic flexure - likely a malignancy. 05/29: Continued metabolic acidosis from sepsis, dehydration from GI losses. Bacteroides in blood. Renal function deteriorating but urine output finally increasing. Continue bicarb gtt. 05/30: Base deficit corrected now after hydration and bicarb infusion. Profuse liters of watery diarrhea continues. Renal function improving after aggressive hydration. He remains very thirsty. 05/31: Large fluid losses from 4+ liter watery diarrhea, matched with intravenous replacement. Elevated K this morning likely an error, recheck, adjust K replacement. 06/01: Continued large volume watery diarrhea. Renal function improving with aggressive hydration. Bicarb replacement required. 06/02: Less diarrhea overnight. Renal function continues to improve. Well hydrated now but large volumes required to keep up with output. 06/03: Renal function continues to improve. Bicarb corrected. Plan for colonoscopy today. 06/04: Colonoscopy shows multiple colon ulcers, most on left side. Renal function much improved after very aggressive fluid replacement. Bicarb corrected. He look much better. Objective Vital Signs Date Time Temp Pulse Resp B/P (MAP) Pulse Ox O2 Delivery O2 Flow Rate FiO2 06/04/17 07:00 94 Nasal Cannula 2.00 06/04/17 06:00 80 06/04/17 04:00 98.7 20 124/69 (87) Intake and Output 06/04/17 06/04/17 06/05/17 08:00 16:00 00:00 Intake Total 1450 ml Output Total 1550 ml Balance -100 ml Result Diagram: 06/03/17 0440 06/04/17 0625 Imaging Last Impressions Abdomen/Pelvis CT 05/25/17 1428 Signed Impressions: Service Date/Time: Thursday, May 25, 2017 16:29 - CONCLUSION: 1. Severe small bowel and colonic distention to the level of the splenic flexure where there is a sharp transition zone. Obstructing neoplasm is not excluded. Willi Muñoz MD Foot X-Ray 05/25/17 1401 Signed Impressions: Service Date/Time: Thursday, May 25, 2017 15:01 - CONCLUSION: Spiral fracture fifth metatarsal. Delfin Mittal MD FACR Chest X-Ray 05/25/17 1401 Signed Impressions: Service Date/Time: Thursday, May 25, 2017 14:59 - CONCLUSION: Moderate hyperinflation with pacer otherwise negative. Delfin Mittal MD FACR Objective Remarks GENERAL: Hungry gentleman, alert and oriented SKIN: Warm and dry. Improving skin turgor HEAD: Atraumatic. Normocephalic. EYES: Pupils equal and round. No conjunctival icterus. No injection or drainage. ENT: Mucous membranes moist. NECK: Trachea midline. Airway patent, unobstructed. CARDIOVASCULAR: Normal rate, regular rhythm. No JVD. NL S1S2, no m,r. RESPIRATORY: Clear to auscultation. Normal excursions. Breath sounds equal bilaterally. No adventitious sounds. GASTROINTESTINAL: Abdomen soft, non-tender, moderately distended. No guarding. BS active. No guarding. MUSCULOSKELETAL: Extremities without clubbing, cyanosis. Well perfused, warm. No edema. NEUROLOGICAL: Calm. Awake and alert. No gross focal motor/sensory deficits. Follows commands in all 4 extremities. A/P Assessment and Plan Assessment This is a 66-year-old male patient with a history of C. difficile colitis, fungal esophagitis, duodenal ulcer, erosive gastritis previously hospitalized , now presenting with septic shock secondary to C. difficile colitis. Assessment: C. difficile colitis Possible Small bowel obstruction Anion gap metabolic acidosis Hypertension Diabetes mellitus Acute on chronic kidney injury Dehydration H/O CA Cardiomyopathy Tonic systolic congestive heart failure History of third-degree block status post pacemaker insertion H/O Afib RVR (03/12) Cardioverted Dementia mild Diabetic peripheral neuropathy History of tobacco abuse History of alcohol abuse Dyslipidemia Plan Plan by systems: Neurologic: Avoid sedative type medications Ofirmev IV every 6 hours when necessary Patient previously 14 shots of liquor per week, per old medical records (02/2017 ) 2 shots of Rum/day Monitor for signs of alcohol withdrawal Seizure precautions Continue donepezil 5 mg q hs, continue gabapentin Fluoxetine 40 mg /day Respiratory: Maintain O2 sat greater than 92% Bronchodilators every 4 hours when necessary for wheezing Currently O2 at 2 L nasal cannula H/O smoking 50 pack years. Counseled on smoking cessation Cardiovascular: Maintain MAP greater than 65mmHg Begin Levophed and Phenylephrine infusions to maintain MAP F/U Pacemaker interrogation Discontinue lisinopril BLAZE inhibitor in the setting of acute kidney injury Hold carvedilol 3.125 BID secondary to hypotension ASA 81mg placed on hold for now Echo from previous hospital 02/27/17 EF 53% (Previously 30%) Renal: Insert selby -- Strict I/Os - Generally edematous -- EDGARDO, nonoliguric now. Bolus with NS. Hold bicarb gtt at 150. -- Add 40 KCL to iv fluid. -- Replace GI losses with NS boluses. -- D/C bicarb gtt, reduce to 25 ml/hr. -- Continue aggressive hydration. FEN/GI: Monitor electrolytes and replete Replete calcium 2GM calcium gluconate Normal Saline 150 cc/hour Patient previously on atorvastatin Follow LFTs Heme/ID: F/U LDH Obtain Procalcitonin level ID following Dr. Dimayuga-IV Flagyl, by mouth Vanco 250mg QID F/U CEA levels Previously hospitalized 03/12/17 C. difficile colitis Endocrine: Glucose monitoring per ICU protocol medium dose regimen DC Levemir -- SSI Prophylaxis: GI Prophylaxis Protonix will change to famotidine in the setting of chronic kidney disease DVT Prophylaxis -- SCDs Heparin Lines: Peripheral IVs 2. Right radial A-line 05/26, right subclavian central line Overall impression: Patient with slowly improving severe colitis and obstructive bowel pattern; no malignancy found at the splenic flexure and initial biopsies benign. Renal function improving as fluid and electrolyte losses are replaced. Repeat colonoscopy with many ulcers, mostly left and sigmoid colon. Michael Cornelius MD Jun 04, 2017 08:37
[2017-06-04] MEDS: INSULIN DETEMIR 100 UNITS/ML VIAL SQ SCH ×2 (09:00→20:35)
[2017-06-04] MEDS: COLLAGENASE OINT 30 GM TUBE TOPICAL SCH (09:08)
[2017-06-04] MEDS: SODIUM CHLORIDE 0.9% FLUSH 10 ML FLUSH IV FLUSH SCH ×2 (09:09→20:36)
[2017-06-04] MEDS: VANCOMYCIN 500 MG VIAL (FOR ORAL USE ONLY) PO SCH ×4 (09:09→20:35)
[2017-06-04] MEDS: GABAPENTIN 100 MG CAP PO SCH ×3 (09:09→17:22)
[2017-06-04] MEDS: FLUoxetine HCL 20 MG CAP PO SCH (09:09)
--- NOTE | 2017-06-04 10:20 | HHI.IDPN ---
Subjective Subjective Remarks 66 year old male admitted with abdominal pain and possible bowel obstruction. Has been diagnosed with recurrent C difficile colitis. Colonoscopy showed stricture in splenic flexure Notes reviewed Temps ok Colonoscopy showed multiple colonic ulcers, path pending Abdominal pain is gone Still with high volume diarrhea No N/V WBC better Creatinine better BP ok Barium enema with stricture No new (+) BC One BC with bacteroides fragilis Antibiotics PO Vancomycin IV Flagyl Lines RSC TLC Past Medical History 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 difficile colitis RLE fracture, required a cast Past Surgical History R knee surgery CT for PTX Allergies: Coded Allergies: No Known Allergies (Unverified Adverse Reaction, Unknown, 05/25/17) Objective . Vital Signs Date Time Temp Pulse Resp B/P (MAP) Pulse Ox O2 Delivery O2 Flow Rate FiO2 06/04/17 08:00 79 06/04/17 08:00 99.5 80 18 110/55 (73) 94 06/04/17 07:00 94 Nasal Cannula 2.00 06/04/17 06:00 80 06/04/17 04:00 98.7 81 20 124/69 (87) 93 06/04/17 04:00 81 06/04/17 02:00 79 06/04/17 00:00 98.9 79 18 140/64 (89) 95 06/04/17 00:00 80 06/03/17 20:00 78 06/03/17 20:00 98.7 86 23 137/65 (89) 94 06/03/17 19:00 95 Nasal Cannula 3.00 06/03/17 18:00 69 06/03/17 16:00 68 06/03/17 16:00 98.8 68 14 119/58 (78) 96 06/03/17 14:00 67 06/03/17 12:00 98.9 75 20 130/63 (85) 94 06/03/17 12:00 75 06/04/17 06/04/17 06/05/17 15:00 23:00 07:00 Intake Total 78 ml Balance 78 ml IV Total 78 ml . Laboratory Tests Test 06/03/17 04:40 White Blood Count 14.4 TH/MM3 Red Blood Count 3.41 MIL/MM3 Hemoglobin 9.8 GM/DL Hematocrit 29.6 % Mean Corpuscular Volume 86.8 FL Mean Corpuscular Hemoglobin 28.8 PG Mean Corpuscular Hemoglobin Concent 33.2 % Red Cell Distribution Width 16.0 % Platelet Count 76 TH/MM3 Mean Platelet Volume 8.9 FL Neutrophils (%) (Auto) 83.3 % Lymphocytes (%) (Auto) 11.4 % Monocytes (%) (Auto) 4.1 % Eosinophils (%) (Auto) 0.8 % Basophils (%) (Auto) 0.4 % Neutrophils # (Auto) 12.0 TH/MM3 Lymphocytes # (Auto) 1.6 TH/MM3 Monocytes # (Auto) 0.6 TH/MM3 Eosinophils # (Auto) 0.1 TH/MM3 Basophils # (Auto) 0.1 TH/MM3 CBC Comment AUTO DIFF Differential Total Cells Counted 100 Neutrophils % (Manual) 80 % Band Neutrophils % 2 % Lymphocytes % 12 % Monocytes % 2 % Eosinophils % 1 % Neutrophils # (Manual) 12.2 TH/MM3 Metamyelocytes 2 % Myelocytes 1 % Differential Comment FINAL DIFF MANUAL Platelet Estimate LOW Platelet Morphology Comment NORMAL Laboratory Tests Test 06/03/17 04:40 06/04/17 06:25 Blood Urea Nitrogen 28 MG/DL 23 MG/DL Creatinine 1.48 MG/DL 1.24 MG/DL Random Glucose 161 MG/DL 175 MG/DL Total Protein 4.4 GM/DL 4.9 GM/DL Calcium Level 6.8 MG/DL 7.0 MG/DL Sodium Level 144 MEQ/L 146 MEQ/L Potassium Level 3.1 MEQ/L 3.8 MEQ/L Chloride Level 110 MEQ/L 113 MEQ/L Carbon Dioxide Level 27.5 MEQ/L 24.9 MEQ/L Anion Gap 7 MEQ/L 8 MEQ/L Estimat Glomerular Filtration Rate 47 ML/MIN 58 ML/MIN Protein Corrected Calcium 8.2 MG/DL 8.2 MG/DL Phosphorus Level 0.9 MG/DL Magnesium Level 1.3 MG/DL Imaging Last Impressions Enema w/Water Soluble 05/28/17 0000 Signed Impressions: Service Date/Time: May 15:14 - CONCLUSION: Limited examination. However, there is a focal high grade stricture involving the junction between the transverse colon and descending colon at the level of the splenic flexure on the left side. Neoplastic disease is the primary consideration. John Francois MD Chest X-Ray 05/27/17 0600 Signed Impressions: Service Date/Time: Saturday, May 27, 2017 05:19 - CONCLUSION: Developing left lung infiltrates. Forrest Green MD Abdomen Ultrasound 05/27/17 0000 Signed Impressions: Service Date/Time: Saturday, May 27, 2017 16:31 - CONCLUSION: Discordant velocities in imaging findings. CT angiography may be of benefit. Delfin Mittal MD FACR Abdomen/Pelvis CT 05/25/17 1428 Signed Impressions: Service Date/Time: Thursday, May 25, 2017 16:29 - CONCLUSION: 1. Severe small bowel and colonic distention to the level of the splenic flexure where there is a sharp transition zone. Obstructing neoplasm is not excluded. Willi Muñoz MD Foot X-Ray 05/25/17 1401 Signed Impressions: Service Date/Time: Thursday, May 25, 2017 15:01 - CONCLUSION: Spiral fracture fifth metatarsal. Delfin Mittal MD FACR Physical Exam GENERAL: Awake and alert, not in respiratory distress. SKIN: Cool and dry. No generalized rash HEAD: Atraumatic. Normocephalic. No temporal wasting, or tenderness. EYES: Manor conjunctiva. No petechia or hemorrhage. Pupils equal, round and reactive to light. Extraocular movements full and intact. No scleral icterus. EARS, NOSE AND THROAT: Nose without bleeding or purulent nasal discharge. No sinus tenderness. Mucous membranes pink and moist. Poor dentition. NECK: Trachea midline. Supple and not tender, no meningeal signs CARDIOVASCULAR: Regular rate and rhythm. No murmurs, rubs or gallops heard. Pacer in L upper chest, with no evidence of infection RESPIRATORY: Clear to auscultation. Breath sounds equal bilaterally. No rales , wheezing or rhonchi. Decreased at bases ABDOMEN: Soft, not distended, no tenderness, . Bowel sounds present and hypoactive, no guarding. No rebound. No organomegaly. EXTREMITIES: No clubbing, cyanosis, or edema. No calf tenderness. Well perfused and warm. A small ulcer in R medial heel, with no evidence of infection NEUROLOGICAL: Awake and alert Cranial nerves grossly intact. Motor grossly within normal limits. PSYCHIATRIC: Normal affect, calm and cooperative. LINE: No evidence of infection Has stool collection bag, has liquid stool, green Assessment & Plan Remarks IMPRESSION Sepsis on presentation, with shock, has N/V and diarrhea: clinically improving - ?Recurrent C diff colitis, ?ischemic bowel (previous CTA ok per records, ?due to low flow state from hypotension) - high volume diarrhea Iveth fragilis bacteremia Bowel obstruction, last colonoscopy no mention of colon mass, has stricture in splenic flexure - has multiple colonic ulcers, path pending Renal failure, improving RECOMMENDATION Continue C diff Rx : IV Flagyl and po Vancomycin Follow CBC Renal following Follow biopsy result Monitor progress Smiley Medina MD Jun 04, 2017 10:20
--- NOTE | 2017-06-04 11:02 | HHI.NPPN ---
Subjective History of Present Illness 66-year-old male with past medical history of diabetes mellitus for more than 10 years, history of chronic kidney disease and acute kidney injury off and on, hypertension, history of hypertension, chronic obstructive pulmonary disease, AV block with post pacemaker placement who came to the hospital with complaint of abdominal pain, distension and nausea, vomiting with diarrhea. I was called to see the patient because of elevated BUN and creatinine. The patient has a creatinine of 1.5 on presentation which has been getting worse and now is 4.1. Additional Remarks Patient is alert, no SOB, started eating better, BM is better with decreased volume. Review of Systems General Constitutional: Fatigue Cardiovascular Cardiac: DUARTE Gastrointestinal Gastrointestinal: Abdominal Pain Objective Data Data 06/04/17 06/05/17 19:00 07:00 Intake Total 78 ml Balance 78 ml IV Total 78 ml Vital Signs Date Time Temp Pulse Resp B/P (MAP) Pulse Ox O2 Delivery O2 Flow Rate FiO2 06/04/17 08:00 79 06/04/17 08:00 99.5 80 18 110/55 (73) 94 06/04/17 07:00 94 Nasal Cannula 2.00 06/04/17 06:00 80 06/04/17 04:00 98.7 81 20 124/69 (87) 93 06/04/17 04:00 81 06/04/17 02:00 79 06/04/17 00:00 98.9 79 18 140/64 (89) 95 06/04/17 00:00 80 06/03/17 20:00 78 06/03/17 20:00 98.7 86 23 137/65 (89) 94 06/03/17 19:00 95 Nasal Cannula 3.00 06/03/17 18:00 69 06/03/17 16:00 68 06/03/17 16:00 98.8 68 14 119/58 (78) 96 06/03/17 14:00 67 06/03/17 12:00 98.9 75 20 130/63 (85) 94 06/03/17 12:00 75 -: 06/03/17 0440 06/04/17 0625 Physical Exam General Appearance: No Acute Distress, Comfortable Eyes Eye Exam: Pupils Equal Pulmonary Resp Exam: Breath Sounds Equal, No Distress, Rhonchi, Decreased Bases, Diminished Breath Sounds Cardiology CV Exam: Regular, Normal Sinus Rhythm Gastrointestinal/Abdomen GI Exam: Soft, Non-Tender, Bowel Sounds Present, Non-Distended Extremeties Extremities Exam: Trace Edema Neurologic Neuro Exam: Alert, Awake, Oriented Psychiatric Psych Exam: Appropriate Responses Assessment/Plan Assessment Summary: EDGARDO/Acute Renal Failure Electrolyte Assessment: Hypokalemia, Metabolic Acidosis Problem List: (1) Hypokalemia ICD Codes: E87.6 - Hypokalemia (2) Metabolic acidosis ICD Codes: E87.2 - Acidosis (3) Nausea and vomiting in adult ICD Codes: R11.2 - Nausea with vomiting, unspecified Status: Acute (4) HTN (hypertension) ICD Codes: I10 - Essential (primary) hypertension Status: Chronic (5) DM (diabetes mellitus) ICD Codes: E11.9 - Type 2 diabetes mellitus without complications Status: Chronic (6) Hyperglycemia ICD Codes: R73.9 - Hyperglycemia, unspecified; L08.9 - Local infection of the skin and subcutaneous tissue, unspecified Status: Acute (7) Dehydration ICD Codes: E86.0 - Dehydration Status: Acute (8) EDGARDO (acute kidney injury) ICD Codes: N17.9 - Acute kidney failure, unspecified Status: Acute Plan Patient most likely has chronic kidney disease, and now develop EDGARDO. Has minimal proteinuria, K is low, and has metabolic acidosis. Has large amount of liquid stool. Urine K is low, has non renal loss.. Non oliguric, has adequate urine out put. Avoid Nephrotoxins, Creatinine is improving and K is better. Encourage oral intake. Colonoscopy results noted. Now stool volume decreased. Has increasing leg edema, and eating better, will D/C IVF. Creatinine is 1.2 and K is normal. Problem Qualifiers (1) HTN (hypertension): Qualified Codes: I10 - Essential (primary) hypertension Jerrod Noel MD Jun 04, 2017 11:02
[2017-06-04] MEDS: HEPARIN SODIUM - SQ 10,000 UNITS/ML VIAL SQ SCH ×2 (14:00→22:28)
--- NOTE | 2017-06-04 15:19 | HHI.PR ---
Subjective Subjective Notes Resting in bed at bedside Objective Vitals/I&O Vital Signs Date Time Temp Pulse Resp B/P (MAP) Pulse Ox O2 Delivery O2 Flow Rate FiO2 06/04/17 12:00 98.9 78 21 111/66 (81) 94 06/04/17 07:00 Nasal Cannula 2.00 Labs Laboratory Tests Test 06/04/17 06:25 Blood Urea Nitrogen 23 Creatinine 1.24 Random Glucose 175 Total Protein 4.9 Calcium Level 7.0 Phosphorus Level 0.9 Magnesium Level 1.3 Sodium Level 146 Potassium Level 3.8 Chloride Level 113 Carbon Dioxide Level 24.9 Anion Gap 8 Estimat Glomerular Filtration Rate 58 Protein Corrected Calcium 8.2 Date/Time Source Procedure Growth Status 05/29/17 00:55 Blood Peripheral Aerobic Blood Culture - Final NO GROWTH IN 5 DAYS Complete 05/29/17 00:55 Blood Peripheral Anaerobic Blood Culture - Final NO GROWTH IN 5 DAYS Complete 05/28/17 20:45 Urine Catheterized Urine Urine Culture - Final NO GROWTH IN 48 HOURS. Complete Radiology Last Impressions Enema w/Water Soluble 05/28/17 0000 Signed Impressions: Service Date/Time: May 15:14 - CONCLUSION: Limited examination. However, there is a focal high grade stricture involving the junction between the transverse colon and descending colon at the level of the splenic flexure on the left side. Neoplastic disease is the primary consideration. John Francois MD Chest X-Ray 05/27/17 0600 Signed Impressions: Service Date/Time: Saturday, May 27, 2017 05:19 - CONCLUSION: Developing left lung infiltrates. Forrest Green MD Abdomen Ultrasound 05/27/17 0000 Signed Impressions: Service Date/Time: Saturday, May 27, 2017 16:31 - CONCLUSION: Discordant velocities in imaging findings. CT angiography may be of benefit. Delfin Mittal MD FACR Abdomen/Pelvis CT 05/25/17 1428 Signed Impressions: Service Date/Time: Thursday, May 25, 2017 16:29 - CONCLUSION: 1. Severe small bowel and colonic distention to the level of the splenic flexure where there is a sharp transition zone. Obstructing neoplasm is not excluded. Willi Muñoz MD Foot X-Ray 05/25/17 1401 Signed Impressions: Service Date/Time: Thursday, May 25, 2017 15:01 - CONCLUSION: Spiral fracture fifth metatarsal. Delfin Mittal MD FACR Cardiovascular: Regular Lungs: Clear Abdomen: Other (abdomen soft; non tender ) Extremities: No edema Narrative Exam Rectal bag with liquid stool A/P Problem List: (1) C. difficile diarrhea ICD Codes: A04.72 - Enterocolitis due to Clostridium difficile, not specified as recurrent Status: Acute (2) Left foot infection ICD Codes: L08.9 - Local infection of the skin and subcutaneous tissue, unspecified Status: Chronic (3) Diabetic infection of left foot ICD Codes: E11.69 - Type 2 diabetes mellitus with other specified complication ; L08.9 - Local infection of the skin and subcutaneous tissue, unspecified Status: Chronic (4) DKA (diabetic ketoacidoses) ICD Codes: E13.10 - Other specified diabetes mellitus with ketoacidosis without coma Status: Resolved (5) DM (diabetes mellitus) ICD Codes: E11.9 - Type 2 diabetes mellitus without complications Status: Chronic (6) HTN (hypertension) ICD Codes: I10 - Essential (primary) hypertension Status: Chronic Assessment and Plan 66 year old male with diarrhea; diffuse abdominal distention---? neoplastic mass -s/p colonoscopy -GGE--- high grade stricture between transverse colon and descending colon -Follow WBC ---trending down now -CCM following -Nephrology following ---renal function continuing to improve -ID following---- + c-diff---on Oral Vanco and Flagyl -Regular diet -Transfer to floor Attending Statement patient seen at bedside Patient with persistent high grade stricture still with stool output will continue to attempt to allow c. diff infection to completely resolve before considering surgery if unable then pt may need surgery sooner. This was discussed with patient and . Attestation The exam, history, and the medical decision-making described in the above note were completed with the assistance of the mid-level provider. I reviewed and agree with the findings presented. I attest that I had a [id number] encounter with the patient on the same day, and personally performed and documented my assessment and findings in the medical record. Problem Qualifiers (1) HTN (hypertension): Qualified Codes: I10 - Essential (primary) hypertension Marianne Torres Jun 04, 2017 15:18 Michael Soares MD Jun 05, 2017 14:33
[2017-06-04] MEDS ORDERED: FAMOTIDINE 20 MG/2 ML VIAL IV PUSH SCH (16:00)
[2017-06-04] MEDS: ACETAMINOPHEN/HYDROcodone 325 MG/5 MG TAB PO PRN (17:23)
[2017-06-04] MEDS: FAMOTIDINE 20 MG TAB PO SCH (20:35)
[2017-06-04] MEDS: DONEPEZIL HCL 5 MG TAB PO SCH (20:35)
[2017-06-05] VITALS (8 sets, daily range): BP systolic 111–137; BP diastolic 57–66; PULSE 68–88; RESP 14–20; TEMP 98–99.5; O2SAT 91–96
[2017-06-05 05:25] LABS: BICARBONATE 25.5 MEQ/L (21.0-32.0); POTASSIUM 3.1 MEQ/L (3.5-5.1)
[2017-06-05 05:41] LABS: CALCIUM-PROTEIN CORRECTED 8.8 MG/DL (8.5-10.1)
[2017-06-05] MEDS: HEPARIN SODIUM - SQ 10,000 UNITS/ML VIAL SQ SCH ×3 (05:44→22:57)
[2017-06-05] MEDS: metroNIDAZOLE 500 MG INJ 100 ML IV SCH ×4 (05:44→18:16)
[2017-06-05] MEDS: INSULIN ASPART SUPPLEMENTAL SCALE SQ SCH ×4 (08:00→22:50)
[2017-06-05] MEDS ORDERED: MAGNESIUM SULFATE 1 GM PREMIX 100 ML IV ONE (08:30)
[2017-06-05] MEDS ORDERED: POTASSIUM PHOSPHATE MONOBASIC 500 MG TAB PO ONE (08:30)
--- NOTE | 2017-06-05 08:59 | HHI.PR ---
Subjective Remarks Follow-up C. difficile, diabetes, acute kidney injury. Patient still having diarrhea. No other complaints at this time. Denies chest pain or dyspnea. Denies nausea or vomiting. Objective Vitals Vital Signs Date Time Temp Pulse Resp B/P (MAP) Pulse Ox O2 Delivery O2 Flow Rate FiO2 06/05/17 07:00 95 Nasal Cannula 3.00 06/05/17 04:00 71 06/05/17 04:00 98.7 77 19 111/64 (80) 93 06/05/17 00:00 98.0 71 14 121/65 (83) 92 06/05/17 00:00 78 06/04/17 22:00 81 06/04/17 20:00 76 06/04/17 20:00 98.4 77 18 116/65 (82) 94 06/04/17 19:00 94 Nasal Cannula 3.00 06/04/17 16:00 98.2 74 18 123/62 (82) 94 06/04/17 16:00 74 06/04/17 12:00 98.9 78 21 111/66 (81) 94 06/04/17 12:00 78 I/O 06/04/17 06/04/17 06/04/17 06/05/17 06/05/17 06/05/17 07:00 15:00 23:00 07:00 15:00 23:00 Intake Total 1450 ml 728 ml 480 ml 460 ml Output Total 1550 ml 2650 ml 1400 ml Balance -100 ml 728 ml -2170 ml -940 ml Intake Oral 400 ml 480 ml 460 ml IV Total 1050 ml 728 ml Output Urine Total 550 ml 650 ml 800 ml Stool Total 1000 ml 2000 ml 600 ml Result Diagram: 06/03/17 0440 06/05/17 0407 Imaging Last Impressions Enema w/Water Soluble 05/28/17 0000 Signed Impressions: Service Date/Time: May 15:14 - CONCLUSION: Limited examination. However, there is a focal high grade stricture involving the junction between the transverse colon and descending colon at the level of the splenic flexure on the left side. Neoplastic disease is the primary consideration. John Francois MD Chest X-Ray 05/27/17 0600 Signed Impressions: Service Date/Time: Saturday, May 27, 2017 05:19 - CONCLUSION: Developing left lung infiltrates. Forrest Green MD Abdomen Ultrasound 05/27/17 0000 Signed Impressions: Service Date/Time: Saturday, May 27, 2017 16:31 - CONCLUSION: Discordant velocities in imaging findings. CT angiography may be of benefit. Delfin Mittal MD FACR Abdomen/Pelvis CT 05/25/17 1428 Signed Impressions: Service Date/Time: Thursday, May 25, 2017 16:29 - CONCLUSION: 1. Severe small bowel and colonic distention to the level of the splenic flexure where there is a sharp transition zone. Obstructing neoplasm is not excluded. Willi Muñoz MD Foot X-Ray 05/25/17 1401 Signed Impressions: Service Date/Time: Thursday, May 25, 2017 15:01 - CONCLUSION: Spiral fracture fifth metatarsal. Delfin Mittal MD FACR Objective Remarks General: No acute distress. Heart: Regular rate and rhythm. No murmur. Lungs: Clear to auscultation bilaterally. No wheezes, rales, or rhonchi. Breathing is nonlabored. Abdomen: Soft, nontender, nondistended. Extremities: No lower extremity edema. Psych: Alert and oriented. Procedures 05/26/17 central line placement 05/26/17 arterial line placement 05/27/17 colonoscopy 06/03/17 colonoscopy Urinary Catheter: Yes Assessment to: Remove Vascular Central Line Catheter: Yes Assessment to: Continue Date of Insertion: May 26, 2017 Line: Central Venous Catheter Side: Right Location: Subclavian A/P Problem List: (1) Bowel obstruction ICD Code: K56.609 - Unspecified intestinal obstruction, unspecified as to partial versus complete obstruction Status: Acute (2) Sepsis ICD Code: A41.9 - Sepsis, unspecified organism Status: Acute (3) DM (diabetes mellitus) ICD Code: E11.9 - Type 2 diabetes mellitus without complications Status: Chronic (4) HTN (hypertension) ICD Code: I10 - Essential (primary) hypertension Status: Chronic (5) EDGARDO (acute kidney injury) ICD Code: N17.9 - Acute kidney failure, unspecified Status: Acute Assessment and Plan 1. C. difficile colitis, possible small bowel obstruction: Patient continues to have diarrhea. Appreciate neurosurgery, infectious disease recommendations. Continue IV Flagyl, oral vancomycin. Colonoscopy showed a stricture at the splenic flexure, but no evidence of malignancy. Repeat colonoscopy shows ulcers , mostly in the left and sigmoid colon. 2. Hypertension: Blood pressure borderline low. Beta leno and BLAZE inhibitor on hold. 3. Diabetes mellitus: Monitor Accu-Cheks and cover with sliding scale insulin. 4. Acute kidney injury superimposed on chronic kidney disease stage III: BUN/ creatinine continue to improve. Appreciate nephrology recommendations. Now off IV fluids. 5. Lower extremity edema: Slightly improved per patient report. Keep legs elevated. IV fluids discontinued. 6. Chronic systolic congestive heart failure, cardiomyopathy: Caution with IV fluids. BLAZE inhibitor discontinued secondary to acute kidney injury. Carvedilol on hold secondary to hypotension. Continue aspirin. Most recent echocardiogram showed ejection fraction 53%. Had previously been recorded as 30%. Monitor strict intake/output. 7. Hypokalemia: Supplement potassium. 8. Hypophosphatemia: Supplement phosphorus. 9. Hypomagnesemia: Supplement magnesium. 10. Tobacco abuse: Counseled to quit smoking. 11. GI prophylaxis: Famotidine. 12. Mild dementia: Continue Aricept. 13. DVT prophylaxis: SCDs, heparin. Discharge Planning Transfer to medical/surgical floor when a bed is available. Problem Qualifiers (1) Bowel obstruction: Qualified Codes: K56.699 - Other intestinal obstruction unspecified as to partial versus complete obstruction (2) Sepsis: Qualified Codes: A41.9 - Sepsis, unspecified organism (3) HTN (hypertension): Qualified Codes: I10 - Essential (primary) hypertension Karson Sylvester MD Jun 05, 2017 08:59
[2017-06-05] MEDS: SODIUM CHLORIDE 0.9% FLUSH 10 ML FLUSH IV FLUSH SCH ×2 (09:00→21:00)
[2017-06-05] MEDS: COLLAGENASE OINT 30 GM TUBE TOPICAL SCH (09:00)
[2017-06-05] MEDS: INSULIN DETEMIR 100 UNITS/ML VIAL SQ SCH ×2 (09:00→22:50)
[2017-06-05] MEDS: FAMOTIDINE 20 MG TAB PO SCH ×2 (09:43→22:50)
[2017-06-05] MEDS: FLUoxetine HCL 20 MG CAP PO SCH (09:43)
[2017-06-05] MEDS: GABAPENTIN 100 MG CAP PO SCH ×3 (09:43→18:15)
[2017-06-05] MEDS: VANCOMYCIN 500 MG VIAL (FOR ORAL USE ONLY) PO SCH ×4 (09:44→22:51)
--- NOTE | 2017-06-05 11:20 | HHI.NPPN ---
Subjective History of Present Illness 66-year-old male with past medical history of diabetes mellitus for more than 10 years, history of chronic kidney disease and acute kidney injury off and on, hypertension, history of hypertension, chronic obstructive pulmonary disease, AV block with post pacemaker placement who came to the hospital with complaint of abdominal pain, distension and nausea, vomiting with diarrhea. I was called to see the patient because of elevated BUN and creatinine. The patient has a creatinine of 1.5 on presentation which has been getting worse and now is 4.1. Additional Remarks Patient is alert, no SOB, started eating better, BM is better with decreased volume. Review of Systems General Constitutional: Fatigue Cardiovascular Cardiac: DUARTE Gastrointestinal Gastrointestinal: Abdominal Pain Objective Data Data 06/05/17 06/06/17 19:00 07:00 Intake Total 100 ml Balance 100 ml IV Total 100 ml Vital Signs Date Time Temp Pulse Resp B/P (MAP) Pulse Ox O2 Delivery O2 Flow Rate FiO2 06/05/17 08:00 98.8 72 18 129/63 (85) 94 06/05/17 08:00 71 06/05/17 07:00 95 Nasal Cannula 3.00 06/05/17 04:00 71 06/05/17 04:00 98.7 77 19 111/64 (80) 93 06/05/17 00:00 98.0 71 14 121/65 (83) 92 06/05/17 00:00 78 06/04/17 22:00 81 06/04/17 20:00 76 06/04/17 20:00 98.4 77 18 116/65 (82) 94 06/04/17 19:00 94 Nasal Cannula 3.00 06/04/17 16:00 98.2 74 18 123/62 (82) 94 06/04/17 16:00 74 06/04/17 12:00 98.9 78 21 111/66 (81) 94 06/04/17 12:00 78 -: 06/03/17 0440 06/05/17 0407 Physical Exam General Appearance: No Acute Distress, Comfortable Eyes Eye Exam: Pupils Equal Pulmonary Resp Exam: Breath Sounds Equal, No Distress, Rhonchi, Decreased Bases, Diminished Breath Sounds Cardiology CV Exam: Regular, Normal Sinus Rhythm Gastrointestinal/Abdomen GI Exam: Soft, Non-Tender, Bowel Sounds Present, Non-Distended Extremeties Extremities Exam: Trace Edema Neurologic Neuro Exam: Alert, Awake, Oriented Psychiatric Psych Exam: Appropriate Responses Assessment/Plan Assessment Summary: EDGARDO/Acute Renal Failure Electrolyte Assessment: Hypokalemia, Metabolic Acidosis Problem List: (1) Hypokalemia ICD Codes: E87.6 - Hypokalemia (2) Metabolic acidosis ICD Codes: E87.2 - Acidosis (3) Nausea and vomiting in adult ICD Codes: R11.2 - Nausea with vomiting, unspecified Status: Acute (4) HTN (hypertension) ICD Codes: I10 - Essential (primary) hypertension Status: Chronic (5) DM (diabetes mellitus) ICD Codes: E11.9 - Type 2 diabetes mellitus without complications Status: Chronic (6) Hyperglycemia ICD Codes: R73.9 - Hyperglycemia, unspecified; L08.9 - Local infection of the skin and subcutaneous tissue, unspecified Status: Acute (7) Dehydration ICD Codes: E86.0 - Dehydration Status: Acute (8) EDGARDO (acute kidney injury) ICD Codes: N17.9 - Acute kidney failure, unspecified Status: Acute Plan Patient most likely has chronic kidney disease, and now develop EDGARDO. Has minimal proteinuria, K is low, and has metabolic acidosis. Has large amount of liquid stool. Urine K is low, has non renal loss.. Non oliguric, has adequate urine out put. Avoid Nephrotoxins, Creatinine is improving and K is better. Encourage oral intake. Colonoscopy results noted. Now stool volume decreased. Has increasing leg edema, and eating better, will D/C IVF. Creatinine is 1.2 and K is normal. Problem Qualifiers (1) HTN (hypertension): Qualified Codes: I10 - Essential (primary) hypertension Jerrod Noel MD Jun 05, 2017 11:20
[2017-06-05] MEDS: ACETAMINOPHEN/HYDROcodone 325 MG/5 MG TAB PO PRN ×2 (11:59)
--- NOTE | 2017-06-05 16:12 | HHI.IDPN ---
Subjective Subjective Remarks 66 year old male admitted with abdominal pain and possible bowel obstruction. Has been diagnosed with recurrent C difficile colitis. Colonoscopy showed stricture in splenic flexure Notes reviewed D/W RN Temps ok Colonoscopy showed multiple colonic ulcers, path pending Abdominal pain is gone Still with high volume diarrhea IVF now on KVO WBC better Creatinine better BP ok Barium enema with stricture No new (+) BC One BC with bacteroides fragilis Antibiotics PO Vancomycin IV Flagyl Lines RSC TLC Past Medical History 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 difficile colitis RLE fracture, required a cast Past Surgical History R knee surgery CT for PTX Allergies: Coded Allergies: No Known Allergies (Unverified Adverse Reaction, Unknown, 05/25/17) Objective . Vital Signs Date Time Temp Pulse Resp B/P (MAP) Pulse Ox O2 Delivery O2 Flow Rate FiO2 06/05/17 13:00 14 06/05/17 12:00 99.5 77 16 137/64 (88) 95 06/05/17 12:00 77 06/05/17 08:00 98.8 72 18 129/63 (85) 94 06/05/17 08:00 71 06/05/17 07:00 95 Nasal Cannula 3.00 06/05/17 04:00 71 06/05/17 04:00 98.7 77 19 111/64 (80) 93 06/05/17 00:00 98.0 71 14 121/65 (83) 92 06/05/17 00:00 78 06/04/17 22:00 81 06/04/17 20:00 76 06/04/17 20:00 98.4 77 18 116/65 (82) 94 06/04/17 19:00 94 Nasal Cannula 3.00 06/05/17 06/05/17 06/06/17 15:00 23:00 07:00 Intake Total 100 ml Balance 100 ml IV Total 100 ml . Laboratory Tests Test 06/04/17 06:25 06/05/17 04:07 Blood Urea Nitrogen 23 MG/DL 20 MG/DL Creatinine 1.24 MG/DL 1.06 MG/DL Random Glucose 175 MG/DL 78 MG/DL Total Protein 4.9 GM/DL 4.7 GM/DL Calcium Level 7.0 MG/DL 7.4 MG/DL Phosphorus Level 0.9 MG/DL Magnesium Level 1.3 MG/DL Sodium Level 146 MEQ/L 147 MEQ/L Potassium Level 3.8 MEQ/L 3.1 MEQ/L Chloride Level 113 MEQ/L 113 MEQ/L Carbon Dioxide Level 24.9 MEQ/L 25.5 MEQ/L Anion Gap 8 MEQ/L 9 MEQ/L Estimat Glomerular Filtration Rate 58 ML/MIN 70 ML/MIN Protein Corrected Calcium 8.2 MG/DL 8.8 MG/DL Imaging Last Impressions Enema w/Water Soluble 05/28/17 0000 Signed Impressions: Service Date/Time: May 15:14 - CONCLUSION: Limited examination. However, there is a focal high grade stricture involving the junction between the transverse colon and descending colon at the level of the splenic flexure on the left side. Neoplastic disease is the primary consideration. John Francois MD Chest X-Ray 05/27/17 0600 Signed Impressions: Service Date/Time: Saturday, May 27, 2017 05:19 - CONCLUSION: Developing left lung infiltrates. Forrest Green MD Abdomen Ultrasound 05/27/17 0000 Signed Impressions: Service Date/Time: Saturday, May 27, 2017 16:31 - CONCLUSION: Discordant velocities in imaging findings. CT angiography may be of benefit. Delfin Mittal MD FACR Abdomen/Pelvis CT 05/25/17 1428 Signed Impressions: Service Date/Time: Thursday, May 25, 2017 16:29 - CONCLUSION: 1. Severe small bowel and colonic distention to the level of the splenic flexure where there is a sharp transition zone. Obstructing neoplasm is not excluded. Willi Muñoz MD Foot X-Ray 05/25/17 1401 Signed Impressions: Service Date/Time: Thursday, May 25, 2017 15:01 - CONCLUSION: Spiral fracture fifth metatarsal. Delfin Mittal MD FACR Physical Exam GENERAL: Awake and alert, not in respiratory distress. SKIN: Cool and dry. No generalized rash HEAD: Atraumatic. Normocephalic. No temporal wasting, or tenderness. EYES: [place] conjunctiva. No petechia or hemorrhage. Pupils equal, round and reactive to light. Extraocular movements full and intact. No scleral icterus. EARS, NOSE AND THROAT: Nose without bleeding or purulent nasal discharge. No sinus tenderness. Mucous membranes pink and moist. Poor dentition. NECK: Trachea midline. Supple and not tender, no meningeal signs CARDIOVASCULAR: Regular rate and rhythm. No murmurs, rubs or gallops heard. Pacer in L upper chest, with no evidence of infection RESPIRATORY: Clear to auscultation. Breath sounds equal bilaterally. No rales , wheezing or rhonchi. Decreased at bases ABDOMEN: Soft, mildly distended, no tenderness. Bowel sounds present and hypoactive, no guarding. No rebound. No organomegaly. EXTREMITIES: No clubbing, cyanosis, or edema. No calf tenderness. Well perfused and warm. A small ulcer in R medial heel, with no evidence of infection NEUROLOGICAL: Awake and alert Cranial nerves grossly intact. Motor grossly within normal limits. PSYCHIATRIC: Normal affect, calm and cooperative. LINE: No evidence of infection Has stool collection bag, has liquid stool, green Assessment & Plan Remarks IMPRESSION Sepsis on presentation, with shock, BP better. Has N/V and abdominal pain, resolved, still with diarrhea - ?Recurrent C diff colitis, ?ischemic bowel (previous CTA ok per records, ?due to low flow state from hypotension) - high volume diarrhea - has ulcers in colon, path pending Iveth fragilis bacteremia Partial Bowel obstruction, last colonoscopy no mention of colon mass, has stricture in splenic flexure - has multiple colonic ulcers, path pending Renal failure, improving RECOMMENDATION Continue C diff Rx : IV Flagyl and po Vancomycin Follow CBC Renal following - needs close monitoring of fluid status Follow biopsy result Monitor progress D/W Smiley Bethea MD Jun 05, 2017 16:12
[2017-06-05] MEDS: DONEPEZIL HCL 5 MG TAB PO SCH (22:51)
[2017-06-05] MEDS: ONDANSETRON HCL 4 MG/2 ML VIAL IVP PRN (22:59)
[2017-06-06] VITALS (9 sets, daily range): BP systolic 111–132; BP diastolic 61–71; PULSE 73–84; RESP 16–20; TEMP 97.9–99.2; O2SAT 91–94
[2017-06-06] MEDS: metroNIDAZOLE 500 MG INJ 100 ML IV SCH ×4 (00:54→19:15)
[2017-06-06] MEDS: ACETAMINOPHEN/HYDROcodone 325 MG/5 MG TAB PO PRN ×3 (01:45→17:43)
[2017-06-06] MEDS: HEPARIN SODIUM - SQ 10,000 UNITS/ML VIAL SQ SCH (06:00)
[2017-06-06 07:34] LABS: AUTOMATED NEUTROPHIL # 8.3 TH/MM3 (1.8-7.7); BASOPHIL % 0.2 % (0.0-2.0); EOSINOPHIL % 0.1 % (0.0-4.0); HEMATOCRIT 31.2 % (39.0-51.0); LYMPH % 12.1 % (9.0-44.0); LYMPHOCYTE # 1.2 TH/MM3 (1.0-4.8); MEAN CELL VOLUME 87.8 FL (80.0-100.0); MEAN CORPUSCULAR HEMOGLOBIN 28.8 PG (27.0-34.0); MEAN CORPUSCULAR HGB CONC 32.8 % (32.0-36.0); MONO % 4.8 % (0.0-8.0); NEUT % 82.8 % (16.0-70.0); PLATELET COUNT 49 TH/MM3 (150-450); RED BLOOD COUNT 3.56 MIL/MM3 (4.50-5.90); RED CELL DISTRIBUTION WIDTH 16.6 % (11.6-17.2)
[2017-06-06 07:40] LABS: HEMO FLAGS AUTO DIFF
[2017-06-06 07:58] LABS: BICARBONATE 23.4 MEQ/L (21.0-32.0); CALCIUM-PROTEIN CORRECTED 8.4 MG/DL (8.5-10.1); MAGNESIUM 1.4 MG/DL (1.5-2.5); POTASSIUM 3.2 MEQ/L (3.5-5.1); TOTAL BILIRUBIN ADULT 0.3 MG/DL (0.2-1.0)
[2017-06-06] MEDS: INSULIN ASPART SUPPLEMENTAL SCALE SQ SCH ×4 (08:00→21:50)
[2017-06-06] MEDS: FAMOTIDINE 20 MG TAB PO SCH ×2 (08:07→21:49)
[2017-06-06] MEDS: GABAPENTIN 100 MG CAP PO SCH ×3 (08:07→17:42)
[2017-06-06] MEDS: SODIUM CHLORIDE 0.9% FLUSH 10 ML FLUSH IV FLUSH SCH ×2 (08:07→21:00)
[2017-06-06] MEDS: FLUoxetine HCL 20 MG CAP PO SCH (08:08)
[2017-06-06] MEDS: INSULIN DETEMIR 100 UNITS/ML VIAL SQ SCH ×2 (08:09→21:50)
[2017-06-06] MEDS: VANCOMYCIN 500 MG VIAL (FOR ORAL USE ONLY) PO SCH ×4 (08:10→21:49)
[2017-06-06] MEDS: COLLAGENASE OINT 30 GM TUBE TOPICAL SCH (08:11)
[2017-06-06 10:23] LABS: PLATELET ESTIMATE SMEAR LOW (NORMAL); PLATELET MORPHOLOGY NORMAL (NORMAL); SCAN/DIFF AUTO DIFF CONFIRMED
--- NOTE | 2017-06-06 11:57 | HHI.PR ---
Subjective Remarks The patient was resting comfortably in bed. His family was at the bedside. The patient stated that his lower extremities were still swollen. He says he hasn't been eating that much. He says he has not been working with physical therapy at all. He said he is breathing comfortably. They have questions pertaining to one surgery would be done to correct the stricture. The patient has been having liquidy bowel movements. He says he has been urinating without the [place] but it is not a great amount. He says he is happy not to have the rectal tube in. Objective Vitals Vital Signs Date Time Temp Pulse Resp B/P (MAP) Pulse Ox O2 Delivery O2 Flow Rate FiO2 06/06/17 08:03 78 06/06/17 08:00 98.2 73 16 118/61 (80) 91 06/06/17 04:00 99.2 81 20 125/63 (83) 92 06/06/17 00:00 98.5 84 20 118/64 (82) 93 06/05/17 21:00 88 06/05/17 21:00 Nasal Cannula 3.00 Humidified 06/05/17 20:00 98.4 87 20 119/57 (77) 91 06/05/17 18:00 99.2 78 20 128/66 (86) 94 06/05/17 16:00 68 06/05/17 16:00 98.8 68 14 131/64 (86) 96 06/05/17 13:00 14 06/05/17 12:00 99.5 77 16 137/64 (88) 95 06/05/17 12:00 77 I/O 06/05/17 06/05/17 06/05/17 06/06/17 06/06/17 06/06/17 07:00 15:00 23:00 07:00 15:00 23:00 Intake Total 460 ml 100 ml 100 ml 100 ml 100 ml Output Total 1400 ml 350 ml 350 ml 350 ml Balance -940 ml 100 ml -250 ml -250 ml -250 ml Intake Oral 460 ml IV Total 100 ml 100 ml 100 ml 100 ml Output Urine Total 800 ml 350 ml 350 ml 350 ml Stool Total 600 ml Result Diagram: 06/06/17 0604 06/06/17 0604 Imaging Last Impressions Enema w/Water Soluble 05/28/17 0000 Signed Impressions: Service Date/Time: May 15:14 - CONCLUSION: Limited examination. However, there is a focal high grade stricture involving the junction between the transverse colon and descending colon at the level of the splenic flexure on the left side. Neoplastic disease is the primary consideration. John Francois MD Chest X-Ray 05/27/17 0600 Signed Impressions: Service Date/Time: Saturday, May 27, 2017 05:19 - CONCLUSION: Developing left lung infiltrates. Forrest Green MD Abdomen Ultrasound 05/27/17 0000 Signed Impressions: Service Date/Time: Saturday, May 27, 2017 16:31 - CONCLUSION: Discordant velocities in imaging findings. CT angiography may be of benefit. Delfin Mittal MD FACR Abdomen/Pelvis CT 05/25/17 1428 Signed Impressions: Service Date/Time: Thursday, May 25, 2017 16:29 - CONCLUSION: 1. Severe small bowel and colonic distention to the level of the splenic flexure where there is a sharp transition zone. Obstructing neoplasm is not excluded. Willi Muñoz MD Foot X-Ray 05/25/17 1401 Signed Impressions: Service Date/Time: Thursday, May 25, 2017 15:01 - CONCLUSION: Spiral fracture fifth metatarsal. Delfin Mittal MD FACR Objective Remarks GENERAL: Resting comfortably. SKIN: Warm and dry. Improving skin turgor HEAD: Atraumatic. Normocephalic. EYES: Pupils equal and round. No conjunctival icterus. No injection or drainage. ENT: Mucous membranes moist. NECK: Trachea midline. Airway patent, unobstructed. CARDIOVASCULAR: Normal rate, regular rhythm. Grade 2 systolic murmur appreciated. RESPIRATORY: Bilateral expiratory wheezing noted. Crackles at the left base. GASTROINTESTINAL: Abdomen soft, non-tender, moderately distended. No guarding. BS active. No guarding. MUSCULOSKELETAL: 1-2+ bilateral LE edema. NEUROLOGICAL: Awake and alert. No gross focal motor/sensory deficits. Follows commands in all 4 extremities. PSYCH: Mood and affect appropriate. Procedures 05/26/17 central line placement 05/26/17 arterial line placement 05/27/17 colonoscopy 06/03/17 colonoscopy Medications and IVs Current Medications Medications (Trade) Dose Ordered Sig/Tricia Route Start Time Stop Time Status Last Admin (NS Flush) 2 ml UNSCH PRN IV FLUSH 05/25/17 17:45 (NS Flush) 2 ml BID IV FLUSH 05/25/17 21:00 06/06/17 08:07 (Zofran Inj) 4 mg Q6H PRN IVP 05/25/17 17:45 06/05/17 22:59 (Narcan Inj) 0.4 mg UNSCH PRN IV PUSH 05/25/17 17:45 (Milk Of Magnesia Liq) 30 ml Q12H PRN PO 05/25/17 17:45 (Senokot) 17.2 mg Q12H PRN PO 05/25/17 17:45 (Dulcolax Supp) 10 mg DAILY PRN RECTAL 05/25/17 17:45 (Lactulose Liq) 30 ml DAILY PRN PO 05/25/17 17:45 (Coreg) 3.125 mg BID PO 05/26/17 09:00 Future Hold (Aricept) 5 mg HS PO 05/26/17 21:00 06/05/17 22:51 (PROzac) 40 mg DAILY PO 05/26/17 09:00 06/06/17 08:08 (D50w (Vial) Inj) 50 ml UNSCH PRN IV PUSH 05/25/17 23:00 06/01/17 09:08 (Glucagon Inj) 1 mg UNSCH PRN OTHER 05/25/17 23:00 (NovoLOG SUPPLEMENTAL SCALE) 1 ACHS SLIDING SCALE SQ 05/26/17 08:00 06/05/17 22:50 (Duoneb Neb) 1 ampule Q4HR NEB PRN INH 05/26/17 11:45 (Brethine Inj) 1 mg UNSCH PRN SQ 05/26/17 14:30 (Neurontin) 100 mg TID PO 05/26/17 18:00 06/06/17 08:07 (Santyl Oint) 1 applic DAILY TOPICAL 05/27/17 09:00 06/06/17 08:11 Metronidazole 100 ml @ 100 mls/hr Q6HR IV 05/27/17 13:00 06/06/17 06:37 (VANCOMYCIN for oral use only) 500 mg QID PO 05/27/17 13:00 06/06/17 08:10 (Levemir Inj) 5 units Q12HR SQ 06/01/17 09:00 06/06/17 08:09 (Heparin Inj) 5,000 units Q8H SQ 06/04/17 14:00 06/05/17 22:57 (Pepcid) 20 mg BID PO 06/04/17 21:00 06/06/17 08:07 ([place] 5-325 Mg) 1 tab Q6H PRN PO 06/04/17 16:45 06/06/17 08:09 Date of Insertion: May 26, 2017 Line: Central Venous Catheter Side: Right Location: Subclavian A/P Problem List: (1) Bowel obstruction ICD Code: K56.609 - Unspecified intestinal obstruction, unspecified as to partial versus complete obstruction Status: Acute (2) Sepsis ICD Code: A41.9 - Sepsis, unspecified organism Status: Acute (3) DM (diabetes mellitus) ICD Code: E11.9 - Type 2 diabetes mellitus without complications Status: Chronic (4) HTN (hypertension) ICD Code: I10 - Essential (primary) hypertension Status: Chronic (5) EDGADRO (acute kidney injury) ICD Code: N17.9 - Acute kidney failure, unspecified Status: Acute Assessment and Plan C. difficile colitis/ Stricture Patient continues to have diarrhea. Appreciate surgery, infectious disease recommendations. Colonoscopy showed a stricture at the splenic flexure, but no evidence of malignancy. Repeat colonoscopy shows ulcers, mostly in the left and sigmoid colon. - Continue IV Flagyl, oral vancomycin. - follow up with surgery. Will try to hold off on surgery until C diff infection cleared. Respiratory insufficiency Last CXR with left infiltrates. On 3L NC. - repeat CXR. - nebs and oxygen as needed. - PT/ OT. - incentive spirometry. Hypertension Blood pressure well controlled. - Beta leno and BLAZE inhibitor on hold. Resume when clinically indicated. Diabetes mellitus Well controlled at this time. - Monitor Accu-Cheks and cover with sliding scale insulin. Acute kidney injury Superimposed on chronic kidney disease stage III. BUN/creatinine continue to improve. Appreciate nephrology recommendations. Now off IV fluids. - follow up with nephrology. - avoid nephrotoxic agents. Lower extremity edema The pt has not been ambulatory. - Keep legs elevated. - IV fluids discontinued. - PT/ OT. - SCDs/ TEDs. Chronic systolic congestive heart failure BLAZE inhibitor discontinued secondary to acute kidney injury. Carvedilol on hold secondary to hypotension. Most recent echocardiogram showed ejection fraction 53 %. Had previously been recorded as 30%. - continue ASA. - Monitor strict intake/output. Hypokalemia/ Hypophosphatemia/ Hypomagnesemia Levels continue to be low. - supplement via IV and monitor levels. - telemetry. Thrombocytopenia Plt count has been dropping over the past few days. Concern for HIT. - hold heparin and check HIT panel. - peripheral smear review by pathology. Tobacco abuse The pt is a smoker. - Counseled to quit smoking. DVT prophylaxis: SCDs. Heparin d/c s/t concern for HIT. Discharge Planning Awaiting clinical improvement Problem Qualifiers (1) Bowel obstruction: Qualified Codes: K56.699 - Other intestinal obstruction unspecified as to partial versus complete obstruction (2) Sepsis: Qualified Codes: A41.9 - Sepsis, unspecified organism (3) HTN (hypertension): Qualified Codes: I10 - Essential (primary) hypertension Slick Nuñez DO Jun 06, 2017 11:57
[2017-06-06] MEDS ORDERED: SODIUM PHOSPHATE INJ 30 MMOL in SODIUM CHLOR 0.9% 250 ML INJ 250 ML IV ONE (12:00)
[2017-06-06] MEDS ORDERED: RESP: ALBUTEROL 2.5 MG/IPRATROPIUM 0.5 MG NEB (SCH) NEB ONE (12:30)
--- NOTE | 2017-06-06 12:45 | RADRPT ---
EXAM DATE/TIME: 06/06/2017 12:10 [facility] COMPARISON: CHEST SINGLE AP, May 27, 2017, 5:19. INDICATIONS : Shortness of breath. MEDICAL HISTORY : Chronic obstructive pulmonary disease. SURGICAL HISTORY : Pacemaker. ENCOUNTER: Subsequent ACUITY: 2 weeks PAIN SCORE: 0/10 LOCATION: Bilateral chest FINDINGS: A single view of the chest demonstrates interval development of interstitial edema with haziness of t he vascular markings. Bibasilar effusions with concomitant airspace consolidation in the left base. H eart size is upper limits of normal. Left subclavian bipolar pacer remains radiographically intact. N asogastric tube and right subclavian central venous catheters have been removed. Probable granulomato us type calcification in the right upper lobe. CONCLUSION: 1. Plain film findings characteristic of interval development of CHF with bibasilar small effusions a nd concomitant airspace consolidation in the left base. 2. Stable granulomatous type calcification in the right upper lung. 3. Interval removal of the nasogastric tube and right subclavian central venous catheter. 4. Osseous structures are intact with some degenerative osteoarthritic changes in the right shoulder Ricky Elias MD on June 06, 2017 at 12:40 Board Certified Radiologist. This report was verified electronically.
[2017-06-06] MEDS: MAGNESIUM SULFATE 1 GM PREMIX 100 ML IV SCH ×3 (13:23→15:29)
[2017-06-06] MEDS: POTASSIUM CHLOR 20 MEQ PREMIX 100 ML IV SCH ×2 (16:21→17:44)
[2017-06-06] MEDS: DONEPEZIL HCL 5 MG TAB PO SCH (21:49)
[2017-06-07] VITALS (10 sets, daily range): BP systolic 106–149; BP diastolic 65–73; PULSE 72–87; RESP 18–20; TEMP 97.5–98.7; O2SAT 93–97
[2017-06-07] MEDS: metroNIDAZOLE 500 MG INJ 100 ML IV SCH ×4 (01:11→16:59)
[2017-06-07 07:23] LABS: HEMATOCRIT 32.6 % (39.0-51.0); MEAN CELL VOLUME 87.5 FL (80.0-100.0); MEAN CORPUSCULAR HEMOGLOBIN 28.8 PG (27.0-34.0); MEAN CORPUSCULAR HGB CONC 32.9 % (32.0-36.0); PLATELET COUNT 44 TH/MM3 (150-450); RED BLOOD COUNT 3.72 MIL/MM3 (4.50-5.90); RED CELL DISTRIBUTION WIDTH 16.6 % (11.6-17.2); WHITE BLOOD COUNT 7.8 TH/MM3 (4.0-11.0)
[2017-06-07 07:40] LABS: REVIEW FLAG FINAL
[2017-06-07 07:41] LABS: MAGNESIUM 1.7 MG/DL (1.5-2.5); POTASSIUM 3.4 MEQ/L (3.5-5.1)
[2017-06-07 08:05] LABS: CALCIUM-PROTEIN CORRECTED 8.3 MG/DL (8.5-10.1)
[2017-06-07] MEDS: INSULIN DETEMIR 100 UNITS/ML VIAL SQ SCH ×2 (08:09→22:10)
[2017-06-07] MEDS: INSULIN ASPART SUPPLEMENTAL SCALE SQ SCH ×4 (08:09→22:10)
[2017-06-07] MEDS: GABAPENTIN 100 MG CAP PO SCH ×3 (08:10→17:01)
[2017-06-07] MEDS: VANCOMYCIN 500 MG VIAL (FOR ORAL USE ONLY) PO SCH ×4 (08:11→21:10)
[2017-06-07] MEDS: FAMOTIDINE 20 MG TAB PO SCH ×2 (08:11→21:09)
[2017-06-07] MEDS: SODIUM CHLORIDE 0.9% FLUSH 10 ML FLUSH IV FLUSH SCH ×2 (08:11→21:10)
[2017-06-07] MEDS: FLUoxetine HCL 20 MG CAP PO SCH (08:11)
[2017-06-07] MEDS: COLLAGENASE OINT 30 GM TUBE TOPICAL SCH (08:13)
[2017-06-07] MEDS ORDERED: POTASSIUM CHLORIDE 25 MEQ EFFERVESCENT TAB PO ONE (08:45)
[2017-06-07] MEDS: MAGNESIUM SULFATE 1 GM PREMIX 100 ML IV SCH ×2 (09:44→10:21)
[2017-06-07] MEDS ORDERED: POTASSIUM PHOSPHATE INJ 30 MMOL in SODIUM CHLOR 0.9% 250 ML INJ 250 ML IV ONE (10:00)
[2017-06-07 13:10] LABS: HEPARIN AB OD 0.129 O.D. (0.000-0.300); HEPARIN INDUCED PLATELET AB NEGATIVE (NEGATIVE)
--- NOTE | 2017-06-07 13:14 | HHI.PR ---
Subjective Remarks The patient was resting in bed comfortably. He was about to eat lunch. He wanted to know how to get the swelling down from all over his body. He said he worked with physical therapy and took a shower, but was unable to get up from the shower chair secondary to weakness. No other acute complaints. Discussed with nursing. Objective Vitals Vital Signs Date Time Temp Pulse Resp B/P (MAP) Pulse Ox O2 Delivery O2 Flow Rate FiO2 06/07/17 12:00 98.7 79 19 127/70 (89) 96 06/07/17 08:00 97.8 74 18 121/72 (88) 97 06/07/17 08:00 97 Nasal Cannula 3.00 Humidified 06/07/17 07:59 72 06/07/17 07:51 94 Nasal Cannula 3.00 06/07/17 05:29 98.0 73 20 135/65 (88) 94 06/07/17 01:30 93 Nasal Cannula 3.00 06/07/17 00:56 98.4 75 20 149/69 (95) 93 06/06/17 22:02 98.1 79 18 132/71 (91) 94 06/06/17 21:02 94 Nasal Cannula 3.00 Humidified 06/06/17 20:17 94 Nasal Cannula 2.00 06/06/17 20:12 73 06/06/17 16:00 97.9 76 18 118/67 (84) 94 I/O 06/06/17 06/06/17 06/06/17 06/07/17 06/07/17 06/07/17 07:00 15:00 23:00 07:00 15:00 23:00 Intake Total 100 ml 780 ml 750 ml 100 ml 300 ml Output Total 350 ml 1100 ml 375 ml 250 ml Balance -250 ml -320 ml 375 ml -150 ml 300 ml Intake Oral 480 ml IV Total 100 ml 300 ml 750 ml 100 ml 300 ml Output Urine Total 350 ml 1100 ml 375 ml 250 ml # Voids 2 # Bowel Movements 3 2 2 Result Diagram: 06/07/17 0659 06/07/17 0659 Imaging Last Impressions Chest X-Ray 06/06/17 0000 Signed Impressions: Service Date/Time: Tuesday, June 06, 2017 12:10 - CONCLUSION: 1. Plain film findings characteristic of interval development of CHF with bibasilar small effusions and concomitant airspace consolidation in the left base. 2. Stable granulomatous type calcification in the right upper lung. 3. Interval removal of the nasogastric tube and right subclavian central venous catheter. 4. 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 However, there is a focal high grade stricture involving the junction between the transverse colon and descending colon at the level of the splenic flexure on the left side. Neoplastic disease is the primary consideration. John Francois MD Abdomen Ultrasound 05/27/17 0000 Signed Impressions: Service Date/Time: Saturday, May 27, 2017 16:31 - CONCLUSION: Discordant velocities in imaging findings. CT angiography may be of benefit. Delfin Mittal MD FACR Abdomen/Pelvis CT 05/25/17 1428 Signed Impressions: Service Date/Time: Thursday, May 25, 2017 16:29 - CONCLUSION: 1. Severe small bowel and colonic distention to the level of the splenic flexure where there is a sharp transition zone. Obstructing neoplasm is not excluded. Willi Muñoz MD Foot X-Ray 05/25/17 1401 Signed Impressions: Service Date/Time: Thursday, May 25, 2017 15:01 - CONCLUSION: Spiral fracture fifth metatarsal. Delfin Mittal MD FACR Objective Remarks GENERAL: Resting comfortably. SKIN: Warm and dry. Improving skin turgor HEAD: Atraumatic. Normocephalic. EYES: Pupils equal and round. No conjunctival icterus. No injection or drainage. ENT: Mucous membranes moist. NECK: Trachea midline. Airway patent, unobstructed. CARDIOVASCULAR: Normal rate, regular rhythm. Grade 2 systolic murmur appreciated. RESPIRATORY: Crackles at the left base noted. GASTROINTESTINAL: Abdomen soft, non-tender, moderately distended. No guarding. BS active. No guarding. MUSCULOSKELETAL: 1+ bilateral LE edema. NEUROLOGICAL: Awake and alert. No gross focal motor/sensory deficits. Follows commands in all 4 extremities. PSYCH: Mood and affect appropriate. Procedures 05/26/17 central line placement 05/26/17 arterial line placement 05/27/17 colonoscopy 06/03/17 colonoscopy Medications and IVs Current Medications Medications (Trade) Dose Ordered Sig/Tricia Route Start Time Stop Time Status Last Admin (NS Flush) 2 ml UNSCH PRN IV FLUSH 05/25/17 17:45 (NS Flush) 2 ml BID IV FLUSH 05/25/17 21:00 06/07/17 08:11 (Zofran Inj) 4 mg Q6H PRN IVP 05/25/17 17:45 06/05/17 22:59 (Narcan Inj) 0.4 mg UNSCH PRN IV PUSH 05/25/17 17:45 (Milk Of Magnesia Liq) 30 ml Q12H PRN PO 05/25/17 17:45 (Senokot) 17.2 mg Q12H PRN PO 05/25/17 17:45 (Dulcolax Supp) 10 mg DAILY PRN RECTAL 05/25/17 17:45 (Lactulose Liq) 30 ml DAILY PRN PO 05/25/17 17:45 (Coreg) 3.125 mg BID PO 05/26/17 09:00 Future Hold (Aricept) 5 mg HS PO 05/26/17 21:00 06/06/17 21:49 (PROzac) 40 mg DAILY PO 05/26/17 09:00 06/07/17 08:11 (D50w (Vial) Inj) 50 ml UNSCH PRN IV PUSH 05/25/17 23:00 06/01/17 09:08 (Glucagon Inj) 1 mg UNSCH PRN OTHER 05/25/17 23:00 (NovoLOG SUPPLEMENTAL SCALE) 1 ACHS SLIDING SCALE SQ 05/26/17 08:00 06/07/17 12:48 (Duoneb Neb) 1 ampule Q4HR NEB PRN INH 05/26/17 11:45 (Brethine Inj) 1 mg UNSCH PRN SQ 05/26/17 14:30 (Neurontin) 100 mg TID PO 05/26/17 18:00 06/07/17 12:00 (Santyl Oint) 1 applic DAILY TOPICAL 05/27/17 09:00 06/07/17 08:13 Metronidazole 100 ml @ 100 mls/hr Q6HR IV 05/27/17 13:00 06/07/17 12:00 (VANCOMYCIN for oral use only) 500 mg QID PO 05/27/17 13:00 06/07/17 12:00 (Levemir Inj) 5 units Q12HR SQ 06/01/17 09:00 06/07/17 08:09 (Pepcid) 20 mg BID PO 06/04/17 21:00 06/07/17 08:11 (Cumming 5-325 Mg) 1 tab Q6H PRN PO 06/04/17 16:45 06/06/17 17:43 Potassium Phosphate 30 mmol/ Sodium Chloride 260 ml @ 43.333 mls/ hr ONCE ONCE IV 06/07/17 10:00 06/07/17 15:59 06/07/17 09:44 Date of Insertion: May 26, 2017 Line: Central Venous Catheter Side: Right Location: Subclavian A/P Problem List: (1) Bowel obstruction ICD Code: K56.609 - Unspecified intestinal obstruction, unspecified as to partial versus complete obstruction Status: Acute (2) Sepsis ICD Code: A41.9 - Sepsis, unspecified organism Status: Acute (3) DM (diabetes mellitus) ICD Code: E11.9 - Type 2 diabetes mellitus without complications Status: Chronic (4) HTN (hypertension) ICD Code: I10 - Essential (primary) hypertension Status: Chronic (5) EDGARDO (acute kidney injury) ICD Code: N17.9 - Acute kidney failure, unspecified Status: Acute Assessment and Plan C. difficile colitis/ Stricture Patient continues to have diarrhea. Appreciate surgery, infectious disease recommendations. Colonoscopy showed a stricture at the splenic flexure, but no evidence of malignancy. Repeat colonoscopy shows ulcers, mostly in the left and sigmoid colon. - Continue IV Flagyl, oral vancomycin. - follow up with surgery. Will try to hold off on surgery until C diff infection cleared. Respiratory insufficiency CXR with left infiltrates. On 3L NC. Repeat CXR: interval development of CHF with bibasilar small effusions and concomitant airspace consolidation in the left base; Stable granulomatous type calcification in the right upper lung. - nebs and oxygen as needed. - PT/ OT. - incentive spirometry. - check a BNP. Hypertension Blood pressure well controlled. - Beta leno and BLAZE inhibitor on hold. Resume when clinically indicated. Diabetes mellitus Well controlled at this time. - Monitor Accu-Cheks and cover with sliding scale insulin. Acute kidney injury Superimposed on chronic kidney disease stage III. BUN/creatinine continue to improve. Appreciate nephrology recommendations. Now off IV fluids. - follow up with nephrology. - avoid nephrotoxic agents. Lower extremity edema The pt has not been ambulatory. - Keep legs elevated. - IV fluids discontinued. - PT/ OT. - SCDs/ TEDs. - will need diuretics soon. Chronic systolic congestive heart failure BLAZE inhibitor discontinued secondary to acute kidney injury. Carvedilol on hold secondary to hypotension. Most recent echocardiogram showed ejection fraction 53 %. Had previously been recorded as 30%. - continue ASA. - Monitor strict intake/output. - BNP pending. Hypokalemia/ Hypophosphatemia/ Hypomagnesemia Levels continue to be low. - supplement via IV and PO electrolytes and monitor levels. - telemetry. Thrombocytopenia Plt count has been dropping over the past few days. Concern for HIT. - hold heparin and check HIT panel. - peripheral smear review by pathology. Tobacco abuse The pt is a smoker. - Counseled to quit smoking. DVT prophylaxis: SCDs. Heparin d/c s/t concern for HIT. Discharge Planning Awaiting clinical improvement Problem Qualifiers (1) Bowel obstruction: Qualified Codes: K56.699 - Other intestinal obstruction unspecified as to partial versus complete obstruction (2) Sepsis: Qualified Codes: A41.9 - Sepsis, unspecified organism (3) HTN (hypertension): Qualified Codes: I10 - Essential (primary) hypertension Slick Nuñez DO Jun 07, 2017 13:13
[2017-06-07] MEDS: ACETAMINOPHEN/HYDROcodone 325 MG/5 MG TAB PO PRN ×2 (15:09→21:09)
[2017-06-07] MEDS: DONEPEZIL HCL 5 MG TAB PO SCH (21:09)
[2017-06-08] VITALS (7 sets, daily range): BP systolic 109–139; BP diastolic 56–66; PULSE 73–88; RESP 18–20; TEMP 98.1–99.2; O2SAT 93–97
[2017-06-08] MEDS: metroNIDAZOLE 500 MG INJ 100 ML IV SCH ×5 (00:20→22:40)
[2017-06-08] MEDS: ACETAMINOPHEN/HYDROcodone 325 MG/5 MG TAB PO PRN ×2 (06:16→22:40)
[2017-06-08 07:21] LABS: HEMATOCRIT 31.2 % (39.0-51.0); MEAN CELL VOLUME 88.3 FL (80.0-100.0); MEAN CORPUSCULAR HEMOGLOBIN 28.7 PG (27.0-34.0); MEAN CORPUSCULAR HGB CONC 32.5 % (32.0-36.0); PLATELET COUNT 51 TH/MM3 (150-450); RED BLOOD COUNT 3.54 MIL/MM3 (4.50-5.90); RED CELL DISTRIBUTION WIDTH 16.5 % (11.6-17.2); WHITE BLOOD COUNT 6.3 TH/MM3 (4.0-11.0)
[2017-06-08 07:46] LABS: REVIEW FLAG FINAL
[2017-06-08 07:50] LABS: BICARBONATE 21.4 MEQ/L (21.0-32.0); MAGNESIUM 1.6 MG/DL (1.5-2.5); POTASSIUM 3.4 MEQ/L (3.5-5.1)
[2017-06-08 08:15] LABS: CALCIUM-PROTEIN CORRECTED 8.5 MG/DL (8.5-10.1)
[2017-06-08] MEDS: COLLAGENASE OINT 30 GM TUBE TOPICAL SCH (09:00)
[2017-06-08] MEDS: SODIUM CHLORIDE 0.9% FLUSH 10 ML FLUSH IV FLUSH SCH ×2 (09:00→20:35)
[2017-06-08] MEDS: FAMOTIDINE 20 MG TAB PO SCH ×2 (09:50→20:30)
[2017-06-08] MEDS: GABAPENTIN 100 MG CAP PO SCH ×3 (09:50→17:09)
[2017-06-08] MEDS: FLUoxetine HCL 20 MG CAP PO SCH (09:50)
[2017-06-08] MEDS: VANCOMYCIN 500 MG VIAL (FOR ORAL USE ONLY) PO SCH ×4 (09:51→20:30)
[2017-06-08] MEDS: INSULIN DETEMIR 100 UNITS/ML VIAL SQ SCH ×2 (09:52→20:34)
[2017-06-08] MEDS ORDERED: POTASSIUM CHLORIDE 25 MEQ EFFERVESCENT TAB PO ONE (10:15)
[2017-06-08] MEDS ORDERED: MAGNESIUM SULFATE 1 GM PREMIX 100 ML IV ONE (10:15)
[2017-06-08] MEDS: INSULIN ASPART SUPPLEMENTAL SCALE SQ SCH ×4 (10:22→20:35)
--- NOTE | 2017-06-08 10:42 | HHI.PR ---
Subjective Remarks The patient was complaining of pain from his bedsores. He said he was still having diarrhea a few times a day. Otherwise he had no acute complaints. He said he was trying to eat less so he would have less diarrhea. Objective Vitals Vital Signs Date Time Temp Pulse Resp B/P (MAP) Pulse Ox O2 Delivery O2 Flow Rate FiO2 06/08/17 07:57 98.7 76 19 139/65 (89) 97 06/08/17 06:01 98.4 73 18 116/57 (76) 96 06/08/17 01:49 98.1 80 18 122/66 (84) 96 06/08/17 00:34 95 Nasal Cannula 3.00 Humidified 06/07/17 21:00 98.7 81 18 118/73 (88) 95 06/07/17 20:18 87 06/07/17 16:00 97.5 74 18 106/71 (83) 96 06/07/17 12:00 98.7 79 19 127/70 (89) 96 I/O 06/07/17 06/07/17 06/07/17 06/08/17 06/08/17 06/08/17 07:00 15:00 23:00 07:00 15:00 23:00 Intake Total 100 ml 300 ml 360 ml 100 ml Output Total 250 ml 450 ml 450 ml Balance -150 ml 300 ml -90 ml -450 ml 100 ml IV Total 100 ml 300 ml 360 ml 100 ml Output Urine Total 250 ml 450 ml 450 ml # Voids 2 # Bowel Movements 2 3 Result Diagram: 06/08/17 0600 06/08/17 0600 Imaging Last Impressions Chest X-Ray 06/06/17 0000 Signed Impressions: Service Date/Time: Tuesday, June 06, 2017 12:10 - CONCLUSION: 1. Plain film findings characteristic of interval development of CHF with bibasilar small effusions and concomitant airspace consolidation in the left base. 2. Stable granulomatous type calcification in the right upper lung. 3. Interval removal of the nasogastric tube and right subclavian central venous catheter. 4. 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 However, there is a focal high grade stricture involving the junction between the transverse colon and descending colon at the level of the splenic flexure on the left side. Neoplastic disease is the primary consideration. John Francois MD Abdomen Ultrasound 05/27/17 0000 Signed Impressions: Service Date/Time: Saturday, May 27, 2017 16:31 - CONCLUSION: Discordant velocities in imaging findings. CT angiography may be of benefit. Delfin Mittal MD FACR Abdomen/Pelvis CT 05/25/17 1428 Signed Impressions: Service Date/Time: Thursday, May 25, 2017 16:29 - CONCLUSION: 1. Severe small bowel and colonic distention to the level of the splenic flexure where there is a sharp transition zone. Obstructing neoplasm is not excluded. Willi Muñoz MD Foot X-Ray 05/25/17 1401 Signed Impressions: Service Date/Time: Thursday, May 25, 2017 15:01 - CONCLUSION: Spiral fracture fifth metatarsal. Delfin Mittal MD FACR Objective Remarks GENERAL: Resting comfortably. SKIN: Warm and dry. Improving skin turgor HEAD: Atraumatic. Normocephalic. EYES: Pupils equal and round. No conjunctival icterus. No injection or drainage. ENT: Mucous membranes moist. NECK: Trachea midline. Airway patent, unobstructed. CARDIOVASCULAR: Normal rate, regular rhythm. Grade 2 systolic murmur appreciated. RESPIRATORY: Crackles at the left base noted. GASTROINTESTINAL: Abdomen soft, non-tender, moderately distended. No guarding. BS active. No guarding. MUSCULOSKELETAL: 1+ bilateral LE edema. Bed sores on buttocks noted. NEUROLOGICAL: Awake and alert. No gross focal motor/sensory deficits. Follows commands in all 4 extremities. PSYCH: Mood and affect appropriate. Procedures 05/26/17 central line placement 05/26/17 arterial line placement 05/27/17 colonoscopy 06/03/17 colonoscopy Medications and IVs Current Medications Medications (Trade) Dose Ordered Sig/Tricia Route Start Time Stop Time Status Last Admin (NS Flush) 2 ml UNSCH PRN IV FLUSH 05/25/17 17:45 (NS Flush) 2 ml BID IV FLUSH 05/25/17 21:00 06/07/17 21:10 (Zofran Inj) 4 mg Q6H PRN IVP 05/25/17 17:45 06/05/17 22:59 (Narcan Inj) 0.4 mg UNSCH PRN IV PUSH 05/25/17 17:45 (Milk Of Magnesia Liq) 30 ml Q12H PRN PO 05/25/17 17:45 (Senokot) 17.2 mg Q12H PRN PO 05/25/17 17:45 (Dulcolax Supp) 10 mg DAILY PRN RECTAL 05/25/17 17:45 (Lactulose Liq) 30 ml DAILY PRN PO 05/25/17 17:45 (Coreg) 3.125 mg BID PO 05/26/17 09:00 Future Hold (Aricept) 5 mg HS PO 05/26/17 21:00 06/07/17 21:09 (PROzac) 40 mg DAILY PO 05/26/17 09:00 06/08/17 09:50 (D50w (Vial) Inj) 50 ml UNSCH PRN IV PUSH 05/25/17 23:00 06/01/17 09:08 (Glucagon Inj) 1 mg UNSCH PRN OTHER 05/25/17 23:00 (NovoLOG SUPPLEMENTAL SCALE) 1 ACHS SLIDING SCALE SQ 05/26/17 08:00 06/08/17 10:22 (Duoneb Neb) 1 ampule Q4HR NEB PRN INH 05/26/17 11:45 (Brethine Inj) 1 mg UNSCH PRN SQ 05/26/17 14:30 (Neurontin) 100 mg TID PO 05/26/17 18:00 06/08/17 09:50 (Santyl Oint) 1 applic DAILY TOPICAL 05/27/17 09:00 06/07/17 08:13 Metronidazole 100 ml @ 100 mls/hr Q6HR IV 05/27/17 13:00 06/08/17 06:15 (VANCOMYCIN for oral use only) 500 mg QID PO 05/27/17 13:00 06/08/17 09:51 (Levemir Inj) 5 units Q12HR SQ 06/01/17 09:00 06/08/17 09:52 (Pepcid) 20 mg BID PO 06/04/17 21:00 06/08/17 09:50 (Eldon 5-325 Mg) 1 tab Q6H PRN PO 06/04/17 16:45 11/13/17 06:16 Magnesium Sulfate/ Dextrose 100 ml @ 100 mls/hr ONCE ONCE IV 06/08/17 10:15 06/08/17 11:14 Date of Insertion: May 26, 2017 Line: Central Venous Catheter Side: Right Location: Subclavian A/P Problem List: (1) Bowel obstruction ICD Code: K56.609 - Unspecified intestinal obstruction, unspecified as to partial versus complete obstruction Status: Acute (2) Sepsis ICD Code: A41.9 - Sepsis, unspecified organism Status: Acute (3) DM (diabetes mellitus) ICD Code: E11.9 - Type 2 diabetes mellitus without complications Status: Chronic (4) HTN (hypertension) ICD Code: I10 - Essential (primary) hypertension Status: Chronic (5) EDGARDO (acute kidney injury) ICD Code: N17.9 - Acute kidney failure, unspecified Status: Acute Assessment and Plan C. difficile colitis/ Stricture Patient continues to have diarrhea. Appreciate surgery, infectious disease recommendations. Colonoscopy showed a stricture at the splenic flexure, but no evidence of malignancy. Repeat colonoscopy shows ulcers, mostly in the left and sigmoid colon. - Continue IV Flagyl, oral vancomycin. - follow up with surgery. Will try to hold off on surgery until C diff infection cleared. Respiratory insufficiency CXR with left infiltrates. On 3L NC. Repeat CXR: interval development of CHF with bibasilar small effusions and concomitant airspace consolidation in the left base; Stable granulomatous type calcification in the right upper lung. BNP 500. - nebs and oxygen as needed. - PT/ OT. - incentive spirometry. - will eventually need diuresis. Hypertension Blood pressure well controlled. - Beta leno and BLAZE inhibitor on hold. Resume when clinically indicated. Diabetes mellitus Relatively well controlled at this time. - Monitor Accu-Cheks and cover with sliding scale insulin. Acute kidney injury Superimposed on chronic kidney disease stage III. BUN/creatinine continue to improve. Appreciate nephrology recommendations. Now off IV fluids. - follow up with nephrology. - avoid nephrotoxic agents. Lower extremity edema The pt has not been ambulatory. He has a history of CHF. - Keep legs elevated. - IV fluids discontinued. - PT/ OT. - SCDs/ TEDs. - will need diuretics soon. Defer to nephrology. Chronic systolic congestive heart failure BLAZE inhibitor discontinued secondary to acute kidney injury. Carvedilol on hold secondary to hypotension. Most recent echocardiogram showed ejection fraction 53 %. Had previously been recorded as 30%. BNP 500. - continue ASA. - Monitor strict intake/output. Hypokalemia/ Hypophosphatemia/ Hypomagnesemia Levels continue to be low. - supplement via IV and PO electrolytes and monitor levels. - telemetry. Thrombocytopenia Plt count has been dropping over the past few days. Concern for HIT. HIT panel negative. May be s/t C diff. - hold heparin for now. - peripheral smear review by pathology. - hematology consult requested. Tobacco abuse The pt is a smoker. - Counseled to quit smoking. DVT prophylaxis: SCDs. Heparin d/c in setting of thrombocytopenia. Discharge Planning Awaiting clinical improvement Problem Qualifiers (1) Bowel obstruction: Qualified Codes: K56.699 - Other intestinal obstruction unspecified as to partial versus complete obstruction (2) Sepsis: Qualified Codes: A41.9 - Sepsis, unspecified organism (3) HTN (hypertension): Qualified Codes: I10 - Essential (primary) hypertension Slick Nuñez DO Jun 08, 2017 10:42
--- NOTE | 2017-06-08 14:00 | HHI.PR ---
Subjective Subjective Notes Resting in bed Tolerating diet Diarrhea slowing down Objective Vitals/I&O Vital Signs Date Time Temp Pulse Resp B/P (MAP) Pulse Ox O2 Delivery O2 Flow Rate FiO2 06/08/17 11:47 98.6 88 20 118/56 (76) 94 06/08/17 00:34 Nasal Cannula 3.00 Humidified Labs Laboratory Tests Test 06/08/17 06:00 White Blood Count 6.3 Red Blood Count 3.54 Hemoglobin 10.1 Hematocrit 31.2 Mean Corpuscular Volume 88.3 Mean Corpuscular Hemoglobin 28.7 Mean Corpuscular Hemoglobin Concent 32.5 Red Cell Distribution Width 16.5 Platelet Count 51 Mean Platelet Volume 10.6 Blood Urea Nitrogen 14 Creatinine 0.77 Random Glucose 120 Total Protein 4.9 Calcium Level 7.3 Magnesium Level 1.6 Sodium Level 143 Potassium Level 3.4 Chloride Level 113 Carbon Dioxide Level 21.4 Anion Gap 9 Estimat Glomerular Filtration Rate 101 Protein Corrected Calcium 8.5 Phosphorus Level 1.8 Date/Time Source Procedure Growth Status 05/29/17 00:55 Blood Peripheral Aerobic Blood Culture - Final NO GROWTH IN 5 DAYS Complete 05/29/17 00:55 Blood Peripheral Anaerobic Blood Culture - Final NO GROWTH IN 5 DAYS Complete 05/28/17 20:45 Urine Catheterized Urine Urine Culture - Final NO GROWTH IN 48 HOURS. Complete Radiology Last Impressions Enema w/Water Soluble 05/28/17 0000 Signed Impressions: Service Date/Time: May 15:14 - CONCLUSION: Limited examination. However, there is a focal high grade stricture involving the junction between the transverse colon and descending colon at the level of the splenic flexure on the left side. Neoplastic disease is the primary consideration. John Francois MD Chest X-Ray 05/27/17 0600 Signed Impressions: Service Date/Time: Saturday, May 27, 2017 05:19 - CONCLUSION: Developing left lung infiltrates. Forrest Green MD Abdomen Ultrasound 05/27/17 0000 Signed Impressions: Service Date/Time: Saturday, May 27, 2017 16:31 - CONCLUSION: Discordant velocities in imaging findings. CT angiography may be of benefit. Delfin Mittal MD FACR Abdomen/Pelvis CT 05/25/17 1428 Signed Impressions: Service Date/Time: Thursday, May 25, 2017 16:29 - CONCLUSION: 1. Severe small bowel and colonic distention to the level of the splenic flexure where there is a sharp transition zone. Obstructing neoplasm is not excluded. Willi Muñoz MD Foot X-Ray 05/25/17 1401 Signed Impressions: Service Date/Time: Thursday, May 25, 2017 15:01 - CONCLUSION: Spiral fracture fifth metatarsal. Delfin Mittal MD FACR Cardiovascular: Regular Lungs: Clear Abdomen: Non-distended, Non-tender Extremities: No edema Narrative Exam Rectal bag removed A/P Problem List: (1) C. difficile diarrhea ICD Codes: A04.72 - Enterocolitis due to Clostridium difficile, not specified as recurrent Status: Acute (2) Left foot infection ICD Codes: L08.9 - Local infection of the skin and subcutaneous tissue, unspecified Status: Chronic (3) Diabetic infection of left foot ICD Codes: E11.69 - Type 2 diabetes mellitus with other specified complication ; L08.9 - Local infection of the skin and subcutaneous tissue, unspecified Status: Chronic (4) DKA (diabetic ketoacidoses) ICD Codes: E13.10 - Other specified diabetes mellitus with ketoacidosis without coma Status: Resolved (5) DM (diabetes mellitus) ICD Codes: E11.9 - Type 2 diabetes mellitus without complications Status: Chronic (6) HTN (hypertension) ICD Codes: I10 - Essential (primary) hypertension Status: Chronic Assessment and Plan 66 year old male with diarrhea; diffuse abdominal distention---? neoplastic mass -s/p colonoscopy -GGE--- high grade stricture between transverse colon and descending colon -Follow WBC ---trending down now -Renal function normal now -ID following -Regular diet -No surgical plans at this time Attending Statement patient seen at bedside high stool output will attempt non op tx consider or when acute infection resolved Attestation The exam, history, and the medical decision-making described in the above note were completed with the assistance of the mid-level provider. I reviewed and agree with the findings presented. I attest that I had a [id number] encounter with the patient on the same day, and personally performed and documented my assessment and findings in the medical record. Problem Qualifiers (1) HTN (hypertension): Qualified Codes: I10 - Essential (primary) hypertension Marianne Torres Jun 08, 2017 14:00 Michael Soares MD Jun 13, 2017 20:51
--- NOTE | 2017-06-08 16:38 | HHI.IDPN ---
Subjective Subjective Remarks 66 year old male admitted with abdominal pain and possible bowel obstruction. Has been diagnosed with recurrent C difficile colitis. Colonoscopy showed stricture in splenic flexure Notes reviewed Temps ok Colonoscopy showed multiple colonic ulcers, path no CA Abdominal pain is gone Stool better WBC down to normal Creatinine is now normal Antibiotics PO Vancomycin IV Flagyl Lines RSC TLC Past Medical History 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 difficile colitis RLE fracture, required a cast Past Surgical History R knee surgery CT for PTX Allergies: Coded Allergies: No Known Allergies (Unverified Adverse Reaction, Unknown, 05/25/17) Objective . Vital Signs Date Time Temp Pulse Resp B/P (MAP) Pulse Ox O2 Delivery O2 Flow Rate FiO2 06/08/17 16:26 98.8 84 20 109/60 (76) 96 06/08/17 11:47 98.6 88 20 118/56 (76) 94 06/08/17 07:57 98.7 76 19 139/65 (89) 97 06/08/17 06:01 98.4 73 18 116/57 (76) 96 06/08/17 01:49 98.1 80 18 122/66 (84) 96 06/08/17 00:34 95 Nasal Cannula 3.00 Humidified 06/07/17 21:00 98.7 81 18 118/73 (88) 95 06/07/17 20:18 87 06/08/17 06/08/17 06/09/17 15:00 23:00 07:00 Intake Total 200 ml Balance 200 ml IV Total 200 ml . Laboratory Tests Test 06/07/17 06:59 06/08/17 06:00 White Blood Count 7.8 TH/MM3 6.3 TH/MM3 Red Blood Count 3.72 MIL/MM3 3.54 MIL/MM3 Hemoglobin 10.7 GM/DL 10.1 GM/DL Hematocrit 32.6 % 31.2 % Mean Corpuscular Volume 87.5 FL 88.3 FL Mean Corpuscular Hemoglobin 28.8 PG 28.7 PG Mean Corpuscular Hemoglobin Concent 32.9 % 32.5 % Red Cell Distribution Width 16.6 % 16.5 % Platelet Count 44 TH/MM3 51 TH/MM3 Mean Platelet Volume 9.6 FL 10.6 FL Laboratory Tests Test 06/07/17 06:59 06/08/17 06:00 Blood Urea Nitrogen 16 MG/DL 14 MG/DL Creatinine 0.85 MG/DL 0.77 MG/DL Random Glucose 161 MG/DL 120 MG/DL Total Protein 5.2 GM/DL 4.9 GM/DL Calcium Level 7.3 MG/DL 7.3 MG/DL Phosphorus Level 1.7 MG/DL 1.8 MG/DL Magnesium Level 1.7 MG/DL 1.6 MG/DL Sodium Level 141 MEQ/L 143 MEQ/L Potassium Level 3.4 MEQ/L 3.4 MEQ/L Chloride Level 111 MEQ/L 113 MEQ/L Carbon Dioxide Level 23.0 MEQ/L 21.4 MEQ/L Anion Gap 7 MEQ/L 9 MEQ/L Estimat Glomerular Filtration Rate 90 ML/MIN 101 ML/MIN Protein Corrected Calcium 8.3 MG/DL 8.5 MG/DL B-Type Natriuretic Peptide 500 PG/ML Imaging Last Impressions Enema w/Water Soluble 05/28/17 0000 Signed Impressions: Service Date/Time: May 15:14 - CONCLUSION: Limited examination. However, there is a focal high grade stricture involving the junction between the transverse colon and descending colon at the level of the splenic flexure on the left side. Neoplastic disease is the primary consideration. John Francois MD Chest X-Ray 05/27/17 0600 Signed Impressions: Service Date/Time: Saturday, May 27, 2017 05:19 - CONCLUSION: Developing left lung infiltrates. Forrest Green MD Abdomen Ultrasound 05/27/17 0000 Signed Impressions: Service Date/Time: Saturday, May 27, 2017 16:31 - CONCLUSION: Discordant velocities in imaging findings. CT angiography may be of benefit. Delfin Mittal MD FACR Abdomen/Pelvis CT 05/25/17 1428 Signed Impressions: Service Date/Time: Thursday, May 25, 2017 16:29 - CONCLUSION: 1. Severe small bowel and colonic distention to the level of the splenic flexure where there is a sharp transition zone. Obstructing neoplasm is not excluded. Willi Muñoz MD Foot X-Ray 05/25/17 1401 Signed Impressions: Service Date/Time: Thursday, May 25, 2017 15:01 - CONCLUSION: Spiral fracture fifth metatarsal. Delfin Mittal MD FACR Physical Exam GENERAL: Awake and alert, NAD SKIN: Cool and dry. No generalized rash EYES: Keenes conjunctiva. No petechia or hemorrhage. Pupils equal, round and reactive to light. Extraocular movements full and intact. No scleral icterus. EARS, NOSE AND THROAT: Nose without bleeding or purulent nasal discharge. Mucous membranes pink and moist. Poor dentition. NECK: Trachea midline. Supple and not tender, no meningeal signs CARDIOVASCULAR: Regular rate and rhythm. No murmurs, rubs or gallops heard. Pacer in L upper chest, with no evidence of infection RESPIRATORY: Clear to auscultation. No rales, wheezing or rhonchi. Decreased at bases ABDOMEN: Soft, mildly distended, no tenderness. Bowel sounds present and hypoactive, no guarding. No rebound. No organomegaly. EXTREMITIES: No clubbing, cyanosis, or edema. No calf tenderness. Well perfused and warm. A small ulcer in R medial heel, with no evidence of infection NEUROLOGICAL: NON FOCAL PSYCHIATRIC: Normal affect, calm and cooperative. LINE: No evidence of infection Assessment & Plan Remarks IMPRESSION Sepsis on presentation, with shock, BP better. Has N/V and abdominal pain, resolved, still with diarrhea - ?Recurrent C diff colitis, ?ischemic bowel (previous CTA ok per records, ?due to low flow state from hypotension) - high volume diarrhea - has ulcers in colon, path pending Iveth fragilis bacteremia Partial Bowel obstruction, last colonoscopy no mention of colon mass, has stricture in splenic flexure - has multiple colonic ulcers, no CA on path Renal failure, improving RECOMMENDATION Continue C diff Rx : IV Flagyl and po Vancomycin Follow CBC Monitor progress If stable change to po Flagyl, and plan total 14 days for Bacteroides bacteremia D/W Smiley Bethea MD Jun 08, 2017 16:38
--- NOTE | 2017-06-08 16:54 | PD.WCN.NOT ---
Wound Consult Description: Consult for wound management per Dr Nuñez Communicated with: Dr Savannah Vazquez,RN Recommendation: Apply thick layer Calazime skin protectant to inner buttocks BID and PRN Apply Nystatin powder to outer areas of buttocks over the fungal rash *Do not remove all Calazime skin protectant when cleansing patient of stool Additional Information: Patient seen on [address] for wound management of buttocks. Patient positioned himself to his right side for assessment. Patient was found to have a towel between his legs and under his scrotum. Once the towel was carefully removed and patient was cleansed of stool, the areas present as bright red and denuded indicating a moisture relation with satellite lesions noted to the periwound indication a fungal etiology as well. Patient was left on his right side so that the area could be open to air. Calazime was applied in a thick layer and patient was having constant loose watery bowel movements with flatus. Marimar Palm [facility] Jun 08, 2017 16:53
--- NOTE | 2017-06-08 17:05 | HHI.GIFU ---
Subjective Remarks Pt resting in bed. C/o of bedsores now and afraid to eat b/c of the pain and diarrhea. Still with liquid stool, no improvement in frequency. (Meka V[place]) Objective Vitals I&O Vital Signs Date Time Temp Pulse Resp B/P (MAP) Pulse Ox O2 Delivery O2 Flow Rate FiO2 06/08/17 16:26 98.8 84 20 109/60 (76) 96 06/08/17 11:47 98.6 88 20 118/56 (76) 94 06/08/17 07:57 98.7 76 19 139/65 (89) 97 06/08/17 06:01 98.4 73 18 116/57 (76) 96 06/08/17 01:49 98.1 80 18 122/66 (84) 96 06/08/17 00:34 95 Nasal Cannula 3.00 Humidified 06/07/17 21:00 98.7 81 18 118/73 (88) 95 06/07/17 20:18 87 I/O 06/07/17 06/07/17 06/07/17 06/08/17 06/08/17 06/08/17 07:00 15:00 23:00 07:00 15:00 23:00 Intake Total 100 ml 300 ml 360 ml 200 ml Output Total 250 ml 450 ml 450 ml Balance -150 ml 300 ml -90 ml -450 ml 200 ml IV Total 100 ml 300 ml 360 ml 200 ml Output Urine Total 250 ml 450 ml 450 ml # Voids 2 # Bowel Movements 2 3 Laboratory Laboratory Tests Test 06/08/17 06:00 White Blood Count 6.3 Red Blood Count 3.54 Hemoglobin 10.1 Hematocrit 31.2 Mean Corpuscular Volume 88.3 Mean Corpuscular Hemoglobin 28.7 Mean Corpuscular Hemoglobin Concent 32.5 Red Cell Distribution Width 16.5 Platelet Count 51 Mean Platelet Volume 10.6 Blood Urea Nitrogen 14 Creatinine 0.77 Random Glucose 120 Total Protein 4.9 Calcium Level 7.3 Magnesium Level 1.6 Sodium Level 143 Potassium Level 3.4 Chloride Level 113 Carbon Dioxide Level 21.4 Anion Gap 9 Estimat Glomerular Filtration Rate 101 Protein Corrected Calcium 8.5 Phosphorus Level 1.8 Date/Time Source Procedure Growth Status 05/29/17 00:55 Blood Peripheral Aerobic Blood Culture - Final NO GROWTH IN 5 DAYS Complete 05/29/17 00:55 Blood Peripheral Anaerobic Blood Culture - Final NO GROWTH IN 5 DAYS Complete 05/28/17 20:45 Urine Catheterized Urine Urine Culture - Final NO GROWTH IN 48 HOURS. Complete Imaging Last Impressions Chest X-Ray 06/06/17 0000 Signed Impressions: Service Date/Time: Tuesday, June 06, 2017 12:10 - CONCLUSION: 1. Plain film findings characteristic of interval development of CHF with bibasilar small effusions and concomitant airspace consolidation in the left base. 2. Stable granulomatous type calcification in the right upper lung. 3. Interval removal of the nasogastric tube and right subclavian central venous catheter. 4. 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 However, there is a focal high grade stricture involving the junction between the transverse colon and descending colon at the level of the splenic flexure on the left side. Neoplastic disease is the primary consideration. John Francois MD Abdomen Ultrasound 05/27/17 0000 Signed Impressions: Service Date/Time: Saturday, May 27, 2017 16:31 - CONCLUSION: Discordant velocities in imaging findings. CT angiography may be of benefit. Delfin Mittal MD FACR Abdomen/Pelvis CT 05/25/17 1428 Signed Impressions: Service Date/Time: Thursday, May 25, 2017 16:29 - CONCLUSION: 1. Severe small bowel and colonic distention to the level of the splenic flexure where there is a sharp transition zone. Obstructing neoplasm is not excluded. Willi Muñoz MD Foot X-Ray 05/25/17 1401 Signed Impressions: Service Date/Time: Thursday, May 25, 2017 15:01 - CONCLUSION: Spiral fracture fifth metatarsal. Delfin Mittal MD FACR Physical Exam HEENT: Normocephalic; atraumatic; no jaundice. CHEST: CTA CARDIAC: RRR ABDOMEN: Soft, nondistended, nontender; no hepatosplenomegaly; bowel sounds are present in all four quadrants. SKIN: erythema & breakdown sacrum; no rash; no jaundice. SOLE STITCHER HAND: Awake and alert. (Meka Vail [employer]) Assessment and Plan Plan ASSESSMENT - Abd pain, N/V/D. CT abdomen and pelvis (05/25/17)---> Severe small bowel and colonic distention to the level of the splenic flexure where this is a sharp transition zone. Obstructing neoplasm is not excluded. S/P Colonoscopy (05/27/17)---> 1. Stricture splenic flexure-scope could not be passed, multiple ulcers in sigmoid,descending, rectum-biopsy fro splenic flexure, rectum 2. Retroflexed views revealed internal hemorrhoids 3. Retroflexed views revealed small internal hemorrhoids. Pathology splenic flexure with colonic mucosa with no significant histopathologic abnormalities, acutely and chronically inflamed granulation tissue. Pt has CDiff. ? ischemia. Unable to have CTA secondary to EDGARDO. US Abdomen (05/27/17)---> Discordant velocities in imaging findings, CTA may be of benefit. CEA 3.0, Ca 19-9 28.3. Gastrografin Enema (05/28/17)---> Limited examination. However there is a focal high grade stricture involving the junction between the transverse colon and descending colon at the level of the splenic flexure on the left side. Neoplastic disease is the primary consideration. splenic flex bx benign, rectum bx acutely and chronically inflamed granulation tissue. GS following. colonoscopy 06/03/17 found mult large ulcers, sigmoid, splenic flexure, transverse colon stricture couldnt pass scope through biopsies xolitis with features of ulceration. - CDiff Colitis, Epid 027. Oral Vanco, Flagyl. - Severe sepsis, leukocytosis. Flagyl, oral Vanco. Cefepime - Anemia. .9. - EDGARDO. Improved. Creat. better. Nephrology following - CMP, CHF, DM, Hyperlipidemia per attending. PLAN - Cont. oral Vanco - Cont. Flagyl - Monitor labs - Supportive care - Patient seen and examined by and myself and this note is written on his behalf (Meka Vail [facility]) Physician Comments Patient seen and examined Agree with above Continue with current supportive care Monitor labs Unfortunately so far we don't have any solid diagnosis the etiology of this stricture is unclear the etiology of the ulcers in the colon is unclear I discussed with the patient pursuing a flexible sigmoidoscopy with the pediatric upper scope so as to try and traversed the stricture and get more information the patient is agreeable The plan would be to pursue a flexible sigmoidoscopy on Thursday and the prep would be to give him enemas prior to the procedure (Emeterio Conrad MD) Meka Vail Jun 08, 2017 17:05 Emeterio Conrad MD Jun 08, 2017 23:32
[2017-06-08] MEDS: DONEPEZIL HCL 5 MG TAB PO SCH (20:30)
--- NOTE | 2017-06-08 22:31 | PD.POD ---
Subjective Podiatric Problems Fracture R 5th metatarsal, ulcer R heel Past Med/Surg/Social History Social History Smoking Status: Current Every Day Smoker Objective Vital Signs Vital Signs Date Time Temp Pulse Resp B/P (MAP) Pulse Ox O2 Delivery O2 Flow Rate FiO2 06/08/17 20:00 99.2 75 18 120/59 (79) 93 06/08/17 19:00 80 06/08/17 16:26 98.8 84 20 109/60 (76) 96 06/08/17 11:47 98.6 88 20 118/56 (76) 94 06/08/17 07:57 98.7 76 19 139/65 (89) 97 06/08/17 06:01 98.4 73 18 116/57 (76) 96 06/08/17 01:49 98.1 80 18 122/66 (84) 96 06/08/17 00:34 95 Nasal Cannula 3.00 Humidified Coded Allergies: No Known Allergies (Unverified Adverse Reaction, Unknown, 05/25/17) Physical Exam Remarks R heel ulceration 1cm diameter and 100% granular. Healthy in appearance. No s/o infection present. R foot with diffuse pitting edema. Patient relates no pain to 5th metatarsal distally. Assessment & Plan A/P R 5th metatarsal fracture R heel wound Continue local wound care as ordered Ordered new fracture boot to wear R foot if patient is up with PT, may be WBAT RLE in boot and remove boot when at rest. Ordered new XR today to evaluate fracture healing Patient may follow up with Dr Juarez upon d/c from hospital. Re-consult if new issues arise Romina Rodríguez DPM Jun 08, 2017 22:31
--- NOTE | 2017-06-08 23:14 | RADRPT ---
EXAM DATE/TIME: 06/08/2017 22:45 [facility] COMPARISON: No previous studies available for comparison. INDICATIONS : Right foot pain. Patient would not specify. MEDICAL HISTORY : Chronic obstructive pulmonary disease. SURGICAL HISTORY : Pacemaker. ENCOUNTER: Subsequent ACUITY: 1 month PAIN SCORE: 3/10 LOCATION: Right foot FINDINGS: Three view examination of the right foot demonstrates a healing fracture of the fifth metatarsal neck . The tarsal bones appear intact. The interphalangeal and metatarsophalangeal joints are intact. The calcaneus is intact. Bony mineralization is normal. CONCLUSION: Healing fracture of the fifth metatarsal neck without displacement. Dmitry Balbuena MD on June 08, 2017 at 23:12 Board Certified Radiologist. This report was verified electronically.
[2017-06-09] VITALS (8 sets, daily range): BP systolic 102–134; BP diastolic 52–69; PULSE 72–86; RESP 18; TEMP 97.7–98.7; O2SAT 91–97
[2017-06-09] MEDS: metroNIDAZOLE 500 MG INJ 100 ML IV SCH ×2 (05:51→12:13)
--- NOTE | 2017-06-09 06:55 | MB ---
cc: DIANNE SUAREZ M.D. DATE OF CONSULTATION 06/08/2017 REASON FOR CONSULTATION Consult requested by hospitalist for evaluation of progressive thrombocytopenia. HISTORY OF PRESENT ILLNESS This is a 66-year-old male. He came to the hospital complaining of nausea, vomiting and abdominal pain. The CT scan of the abdomen and pelvis shows small bowel obstruction with a transition zone in the transverse colon. The patient was admitted to the hospital. He underwent colonoscopy which showed a stricture at the splenic flexure. Biopsies were obtained. The pathology was benign. The patient underwent repeat colonoscopy and biopsy of the stricture was again done and the pathology came back benign. The patient was in septic shock when he was admitted to the hospital. The blood cultures showed bacteroides bacteremia. The stools are C. Diff positive. The patient is on the antibiotics p.o. Vanco and Flagyl. He was also on IV antibiotics. On admission, his white count was 20.1, platelet count was 478, hemoglobin 14.1. Subsequently, the differential count shows severe bandemia of 57%. This was clearly consistent with sepsis syndrome. The patient's platelet count slowly started coming down. Yesterday, the platelet count was 44, today it is 51. I have been asked to see the patient for the thrombocytopenia. The patient denies any previous history of thrombocytopenia. He denies any bleeding episodes. He denies any nausea or vomiting. He still has abdominal pain and diarrhea. His appetite is poor. He denies any weight loss. PAST MEDICAL HISTORY 1. COPD 2. Diabetes mellitus 3. Hypertension 4. Third degree AV block PAST SURGICAL HISTORY Pacemaker placement. ALLERGIES None MEDICATIONS Please see EMR. FAMILY HISTORY Noncontributory SOCIAL HISTORY The patient smokes one-pack a day and recently drank alcohol. PHYSICAL EXAM This is a well-developed, well-nourished white male in no apparent distress. VITAL SIGNS: Temperature 98.8, heart is 84, blood pressure 109/60, O2 suture 96%. HEENT: PERRLA, EOMI, anicteric. No oral lesions noted. NECK: Supple. There is no cervical, supraclavicular or axillary lymphadenopathy noted. LUNGS: Clear. No wheezing, rhonchi or rales. HEART: Regular rate and rhythm. ABDOMEN: Diffusely tender. No masses noted. EXTREMITIES: No pedal edema. NEUROLOGIC: Awake, alert, oriented times three. SKIN: No significant lesions noted. ASSESSMENT Thrombocytopenia. This is most likely due to a sepsis, infection and/or DIC. Certainly this could be from medications as well. No evidence of TTP or HUS noted. PLAN I have reviewed his available records and I have discussed with the patient regarding the thrombocytopenia. The patient came in with a platelet count of 478 and slowly the platelet count has gone down. The HIT came back negative. The peripheral smear does not show any schistocytes. No evidence of microangiopathic hemolytic process noted. There is a moderate thrombocytopenia, mild normocytic normochromic anemia and mild leukocytosis with reactive features. The patient does not have any bleeding. I expect his platelet count to improve in the next several days as I strongly suspect his thrombocytopenia is due to the sepsis, infection and/or DIC as well as the medications. RECOMMENDATIONS My recommendation is to monitor his CBC. I will also check the DIC profile. Further recommendations based on his hospital stay. Thank you for asking my opinion. Jelani Suarez MD /ANDREW /10:05 PM /6:52 AM YURIDIA
[2017-06-09 08:02] LABS: MEAN CELL VOLUME 88.5 FL (80.0-100.0); MEAN CORPUSCULAR HEMOGLOBIN 28.9 PG (27.0-34.0); MEAN CORPUSCULAR HGB CONC 32.6 % (32.0-36.0); PLATELET COUNT 52 TH/MM3 (150-450); RED BLOOD COUNT 3.28 MIL/MM3 (4.50-5.90); RED CELL DISTRIBUTION WIDTH 16.4 % (11.6-17.2); WHITE BLOOD COUNT 5.2 TH/MM3 (4.0-11.0)
[2017-06-09 08:04] LABS: REVIEW FLAG FINAL
[2017-06-09 08:26] LABS: APTT (PATIENT) 32.7 SEC (24.3-30.1); INTERNATIONAL NORMALIZED RATIO 1.1 RATIO; PROTHROMBIN TIME - PATIENT 12.7 SEC (9.8-11.6)
[2017-06-09 08:41] LABS: BICARBONATE 19.7 MEQ/L (21.0-32.0); MAGNESIUM 1.5 MG/DL (1.5-2.5); POTASSIUM 3.6 MEQ/L (3.5-5.1)
[2017-06-09] MEDS: COLLAGENASE OINT 30 GM TUBE TOPICAL SCH (09:00)
[2017-06-09] MEDS: SODIUM CHLORIDE 0.9% FLUSH 10 ML FLUSH IV FLUSH SCH ×2 (09:00→20:51)
--- NOTE | 2017-06-09 09:18 | HHI.PR ---
Subjective Remarks Follow up for C. difficile colitis, possible neoplastic colonic mass. Patient is currently doing well. However he complains of significant pain in the perirectal area due to skin wound and diarrhea. He continues to have significant diarrhea. No fever or chills. Objective Vitals Vital Signs Date Time Temp Pulse Resp B/P (MAP) Pulse Ox O2 Delivery O2 Flow Rate FiO2 06/09/17 08:05 98.5 79 18 134/67 (89) 91 06/09/17 04:00 98.6 86 18 134/63 (86) 92 06/09/17 00:00 97.7 76 18 102/52 (69) 91 06/08/17 20:00 99.2 75 18 120/59 (79) 93 06/08/17 19:00 80 06/08/17 16:26 98.8 84 20 109/60 (76) 96 06/08/17 11:47 98.6 88 20 118/56 (76) 94 I/O 06/08/17 06/08/17 06/08/17 06/09/17 06/09/17 06/09/17 07:00 15:00 23:00 07:00 15:00 23:00 Intake Total 200 ml 600 ml Output Total 450 ml 400 ml Balance -450 ml 200 ml 200 ml Intake Oral 600 ml IV Total 200 ml Output Urine Total 450 ml 400 ml # Voids 2 # Bowel Movements 4 2 Result Diagram: 06/09/17 0605 06/09/17 0605 Imaging Last Impressions Foot X-Ray 06/08/17 0000 Signed Impressions: Service Date/Time: Thursday, June 08, 2017 22:45 - CONCLUSION: Healing fracture of the fifth metatarsal neck without displacement. Dmitry Balbuena MD Chest X-Ray 06/06/17 0000 Signed Impressions: Service Date/Time: Tuesday, June 06, 2017 12:10 - CONCLUSION: 1. Plain film findings characteristic of interval development of CHF with bibasilar small effusions and concomitant airspace consolidation in the left base. 2. Stable granulomatous type calcification in the right upper lung. 3. Interval removal of the nasogastric tube and right subclavian central venous catheter. 4. 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 However, there is a focal high grade stricture involving the junction between the transverse colon and descending colon at the level of the splenic flexure on the left side. Neoplastic disease is the primary consideration. John Francois MD Abdomen Ultrasound 05/27/17 0000 Signed Impressions: Service Date/Time: Saturday, May 27, 2017 16:31 - CONCLUSION: Discordant velocities in imaging findings. CT angiography may be of benefit. Delfin Mittal MD FACR Abdomen/Pelvis CT 05/25/17 1428 Signed Impressions: Service Date/Time: Thursday, May 25, 2017 16:29 - CONCLUSION: 1. Severe small bowel and colonic distention to the level of the splenic flexure where there is a sharp transition zone. Obstructing neoplasm is not excluded. Willi Muñoz MD Objective Remarks GENERAL: Alert, NAD. SKIN: Warm and dry. Significant redness and tenderness at around the perianal/ buttock area. HEAD: Normocephalic. EYES: No scleral icterus. No injection or drainage. NECK: Supple, trachea midline. No JVD or lymphadenopathy. CARDIOVASCULAR: Regular rate and rhythm without murmurs, gallops, or rubs. RESPIRATORY: Breath sounds equal bilaterally. No accessory muscle use. GASTROINTESTINAL: Abdomen soft, non-tender, nondistended. MUSCULOSKELETAL: No cyanosis, or edema. BACK: Nontender without obvious deformity. No CVA tenderness. Procedures 05/26/17 central line placement 05/26/17 arterial line placement 05/27/17 colonoscopy 06/03/17 colonoscopy Date of Insertion: May 26, 2017 Line: Central Venous Catheter Side: Right Location: Subclavian A/P Problem List: (1) Bowel obstruction ICD Code: K56.609 - Unspecified intestinal obstruction, unspecified as to partial versus complete obstruction Status: Acute (2) Sepsis ICD Code: A41.9 - Sepsis, unspecified organism Status: Acute (3) DM (diabetes mellitus) ICD Code: E11.9 - Type 2 diabetes mellitus without complications Status: Chronic (4) HTN (hypertension) ICD Code: I10 - Essential (primary) hypertension Status: Chronic (5) EDGARDO (acute kidney injury) ICD Code: N17.9 - Acute kidney failure, unspecified Status: Acute Assessment and Plan Mr. 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 On arrival, patient has leukocytosis with WBC count 20.1K, lactic acid 4.7. CT abdomen pelvis shows small bowel and colonic distention with transition point at the splenic flexure. CT abdomen and pelvis also indicated possibility of neoplasm causing obstruction. Patient became hemodynamically unstable and was admitted to ICU on 05/26/2017. C. Diff was positive. - C. Diff colitis - Continue PO Vanc and IV Flagyl. - Wound care for buttock, jason-rectal skin irritation. - Colonoscopy shows large ulcers in sigmoid colol, large ulcer in the transverse colon with colonic stricture. - Repeat Sigmoidoscopy on 06/10/2017. - Acute kidney injury - Creatinine improved from 4.23 on 05/29/2017 --> 0.7 to on 06/09/2017. - Diabetes mellitus - Currently on Levemir 5 units every 12 hours, medium scale sliding scale. - Change Levemir to 10 units QHS - May need to add pre-meal insulin if necessary. - Hypokalemia - improved K+ 3.6. - Hypomagnesemia - Mg 1.5. Will replace with 2 g of Mag sulfate IV. - Thrombocytopenia - PLT count 52K. Hematology evaluated patient. - likely due to infection. Full code. SCDs. Problem Qualifiers (1) Bowel obstruction: Qualified Codes: K56.699 - Other intestinal obstruction unspecified as to partial versus complete obstruction (2) Sepsis: Qualified Codes: A41.9 - Sepsis, unspecified organism (3) HTN (hypertension): Qualified Codes: I10 - Essential (primary) hypertension Steven Blackmon DO Jun 09, 2017 09:18
[2017-06-09] MEDS: VANCOMYCIN 500 MG VIAL (FOR ORAL USE ONLY) PO SCH ×4 (09:34→20:53)
[2017-06-09] MEDS: FAMOTIDINE 20 MG TAB PO SCH ×2 (09:34→20:50)
[2017-06-09] MEDS: GABAPENTIN 100 MG CAP PO SCH ×3 (09:34→17:22)
[2017-06-09] MEDS: FLUoxetine HCL 20 MG CAP PO SCH (09:34)
[2017-06-09] MEDS: INSULIN DETEMIR 100 UNITS/ML VIAL SQ SCH ×2 (09:39→20:55)
[2017-06-09] MEDS: INSULIN ASPART SUPPLEMENTAL SCALE SQ SCH ×4 (09:48→20:55)
--- NOTE | 2017-06-09 10:09 | PD.ONC.PN ---
Subjective Subjective Remarks Afebrile overnight. Patient resting in room on chair next to bed. He was complaining of pain in his "bed sores" from sitting on a chair, and was asking to be moved back to the bed. So myself and the VOCATIONAL NURSE assisted him back to the bed. He is otherwise without complaints. Objective Data Date Time Temp Pulse Resp B/P (MAP) Pulse Ox O2 Delivery O2 Flow Rate FiO2 06/09/17 08:05 98.5 79 18 134/67 (89) 91 06/09/17 04:00 98.6 86 18 134/63 (86) 92 06/09/17 00:00 97.7 76 18 102/52 (69) 91 06/08/17 20:00 99.2 75 18 120/59 (79) 93 06/08/17 19:00 80 06/08/17 16:26 98.8 84 20 109/60 (76) 96 06/08/17 11:47 98.6 88 20 118/56 (76) 94 Result Diagram: 06/09/1760406/09/17604 Laboratory Results Laboratory Tests Test 06/09/17 06:05 White Blood Count 5.2 TH/MM3 Red Blood Count 3.28 MIL/MM3 Hemoglobin 9.5 GM/DL Hematocrit 29.0 % Mean Corpuscular Volume 88.5 FL Mean Corpuscular Hemoglobin 28.9 PG Mean Corpuscular Hemoglobin Concent 32.6 % Red Cell Distribution Width 16.4 % Platelet Count 52 TH/MM3 Mean Platelet Volume 9.9 FL Prothrombin Time 12.7 SEC Prothromb Time International Ratio 1.1 RATIO Activated Partial Thromboplast Time 32.7 SEC Fibrinogen 472 mg/dL Blood Urea Nitrogen 11 MG/DL Creatinine 0.72 MG/DL Random Glucose 223 MG/DL Calcium Level 7.6 MG/DL Phosphorus Level 1.5 MG/DL Magnesium Level 1.5 MG/DL Sodium Level 141 MEQ/L Potassium Level 3.6 MEQ/L Chloride Level 111 MEQ/L Carbon Dioxide Level 19.7 MEQ/L Anion Gap 10 MEQ/L Estimat Glomerular Filtration Rate 109 ML/MIN Administered Medications Medications (Trade) Dose Ordered Sig/Tricia Route PRN Reason Start Time Stop Time Status Last Admin Dose Admin Sodium Chloride (NS Flush) 2 ml BID IV FLUSH 05/25/17 21:00 06/08/17 20:35 Ondansetron HCl (Zofran Inj) 4 mg Q6H PRN IVP NAUSEA OR VOMITING 05/25/17 17:45 06/05/17 22:59 Donepezil HCl (Aricept) 5 mg HS PO 05/26/17 21:00 06/08/17 20:30 Fluoxetine HCl (PROzac) 40 mg DAILY PO 05/26/17 09:00 06/09/17 09:34 Dextrose (D50w (Vial) Inj) 50 ml UNSCH PRN IV PUSH HYPOGLYCEMIA-SEE COMMENTS 05/25/17 23:00 06/01/17 09:08 Insulin Aspart (NovoLOG SUPPLEMENTAL SCALE) 1 ACHS SLIDING SCALE SQ 05/26/17 08:00 06/09/17 09:48 Gabapentin (Neurontin) 100 mg TID PO 05/26/17 18:00 06/09/17 09:34 Collagenase (Santyl Oint) 1 applic DAILY TOPICAL 05/27/17 09:00 06/09/17 09:00 Metronidazole 100 ml @ 100 mls/hr Q6HR IV 05/27/17 13:00 06/09/17 05:51 Vancomycin HCl (VANCOMYCIN for oral use only) 500 mg QID PO 05/27/17 13:00 06/09/17 09:34 Insulin Detemir (Levemir Inj) 5 units Q12HR SQ 06/01/17 09:00 06/09/17 09:39 Famotidine (Pepcid) 20 mg BID PO 06/04/17 21:00 06/09/17 09:34 Acetaminophen/ Hydrocodone Bitart ([place] 5-325 Mg) 1 tab Q6H PRN PO Pain 6-10 06/04/17 16:45 06/08/17 22:40 Objective Remarks GENERAL: Middle aged male lying supine in bed in [facility]. SKIN: Warm and dry. HEAD: Normocephalic. EYES: No injection or drainage. NECK: Supple, trachea midline. CARDIOVASCULAR: Regular rate and rhythm RESPIRATORY: Breath sounds equal bilaterally. No accessory muscle use. GASTROINTESTINAL: Abdomen soft, non-tender, nondistended. EXTREMITIES: No cyanosis NEUROLOGICAL: awake and alert, normal speech. Assessment/Plan Problem List: (1) Thrombocytopenia ICD Codes: D69.6 - Thrombocytopenia, unspecified Plan: 06/09: platelet count 52K today. expect counts to improve as infection improves. --most likely due to a sepsis, infection and/or DIC. --No evidence of TTP or HUS noted. --HIT negative. --peripheral smear does not show any schistocytes. --No evidence of microangiopathic hemolytic process noted. Assessment 66y/o male with progressive thrombocytopenia. h/o COPD, Diabetes mellitus, Hypertension, Third degree AV block Attending Statement The exam, history, and the medical decision-making described in the above note were completed with the assistance of the mid-level provider. I reviewed and agree with the findings presented. I attest that I had a zbil-an-ocac encounter with the patient on the same day, and personally performed and documented my assessment and findings in the medical record. No new complaints No bleeding Platelets Low but stable Platelets will improve once the infection Clear up Christal Urban Jun 09, 2017 10:09 Bennett Suarez MD Jun 09, 2017 21:38
[2017-06-09] MEDS: ACETAMINOPHEN/HYDROcodone 325 MG/5 MG TAB PO PRN ×2 (12:59→20:50)
--- NOTE | 2017-06-09 13:15 | HHI.GIFU ---
Subjective Remarks Resting in bed. No n/v. No abdominal pain. Still having diarrhea. (Caridad Bradford) Objective Vitals I&O Vital Signs Date Time Temp Pulse Resp B/P (MAP) Pulse Ox O2 Delivery O2 Flow Rate FiO2 06/09/17 12:04 98.7 86 18 116/69 (85) 97 06/09/17 08:05 98.5 79 18 134/67 (89) 91 06/09/17 07:30 74 06/09/17 04:00 98.6 86 18 134/63 (86) 92 06/09/17 00:00 97.7 76 18 102/52 (69) 91 06/08/17 20:00 99.2 75 18 120/59 (79) 93 06/08/17 19:00 80 06/08/17 16:26 98.8 84 20 109/60 (76) 96 I/O 06/08/17 06/08/17 06/08/17 06/09/17 06/09/17 06/09/17 07:00 15:00 23:00 07:00 15:00 23:00 Intake Total 200 ml 600 ml Output Total 450 ml 400 ml Balance -450 ml 200 ml 200 ml Intake Oral 600 ml IV Total 200 ml Output Urine Total 450 ml 400 ml # Voids 2 # Bowel Movements 4 2 Laboratory Laboratory Tests Test 06/09/17 06:05 White Blood Count 5.2 Red Blood Count 3.28 Hemoglobin 9.5 Hematocrit 29.0 Mean Corpuscular Volume 88.5 Mean Corpuscular Hemoglobin 28.9 Mean Corpuscular Hemoglobin Concent 32.6 Red Cell Distribution Width 16.4 Platelet Count 52 Mean Platelet Volume 9.9 Prothrombin Time 12.7 Prothromb Time International Ratio 1.1 Activated Partial Thromboplast Time 32.7 Fibrinogen 472 Blood Urea Nitrogen 11 Creatinine 0.72 Random Glucose 223 Calcium Level 7.6 Phosphorus Level 1.5 Magnesium Level 1.5 Sodium Level 141 Potassium Level 3.6 Chloride Level 111 Carbon Dioxide Level 19.7 Anion Gap 10 Estimat Glomerular Filtration Rate 109 Date/Time Source Procedure Growth Status 05/29/17 00:55 Blood Peripheral Aerobic Blood Culture - Final NO GROWTH IN 5 DAYS Complete 05/29/17 00:55 Blood Peripheral Anaerobic Blood Culture - Final NO GROWTH IN 5 DAYS Complete 05/28/17 20:45 Urine Catheterized Urine Urine Culture - Final NO GROWTH IN 48 HOURS. Complete Imaging Last Impressions Foot X-Ray 06/08/17 0000 Signed Impressions: Service Date/Time: Thursday, June 08, 2017 22:45 - CONCLUSION: Healing fracture of the fifth metatarsal neck without displacement. Dmitry Balbuena MD Chest X-Ray 06/06/17 0000 Signed Impressions: Service Date/Time: Tuesday, June 06, 2017 12:10 - CONCLUSION: 1. Plain film findings characteristic of interval development of CHF with bibasilar small effusions and concomitant airspace consolidation in the left base. 2. Stable granulomatous type calcification in the right upper lung. 3. Interval removal of the nasogastric tube and right subclavian central venous catheter. 4. 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 However, there is a focal high grade stricture involving the junction between the transverse colon and descending colon at the level of the splenic flexure on the left side. Neoplastic disease is the primary consideration. John Francois MD Abdomen Ultrasound 05/27/17 0000 Signed Impressions: Service Date/Time: Saturday, May 27, 2017 16:31 - CONCLUSION: Discordant velocities in imaging findings. CT angiography may be of benefit. Delfin Mittal MD FACR Abdomen/Pelvis CT 05/25/17 1428 Signed Impressions: Service Date/Time: Thursday, May 25, 2017 16:29 - CONCLUSION: 1. Severe small bowel and colonic distention to the level of the splenic flexure where there is a sharp transition zone. Obstructing neoplasm is not excluded. Willi Muñoz MD Physical Exam HEENT: Normocephalic; atraumatic; no jaundice. CHEST: CTA CARDIAC: RRR ABDOMEN: Soft, nondistended, nontender; no hepatosplenomegaly; bowel sounds are present in all four quadrants. 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 (Caridad Bradford) Assessment and Plan Plan ASSESSMENT - Abd pain, N/V/D. CT abdomen and pelvis (05/25/17)---> Severe small bowel and colonic distention to the level of the splenic flexure where this is a sharp transition zone. Obstructing neoplasm is not excluded. S/P Colonoscopy (05/27/17)---> 1. Stricture splenic flexure-scope could not be passed, multiple ulcers in sigmoid,descending, rectum-biopsy fro splenic flexure, rectum 2. Retroflexed views revealed internal hemorrhoids 3. Retroflexed views revealed small internal hemorrhoids. Pathology splenic flexure with colonic mucosa with no significant histopathologic abnormalities, acutely and chronically inflamed granulation tissue. Pt has CDiff. ? ischemia. Unable to have CTA secondary to EDGARDO. US Abdomen (05/27/17)---> Discordant velocities in imaging findings, CTA may be of benefit. CEA 3.0, Ca 19-9 28.3. Gastrografin Enema (05/28/17)---> Limited examination. However there is a focal high grade stricture involving the junction between the transverse colon and descending colon at the level of the splenic flexure on the left side. Neoplastic disease is the primary consideration. splenic flex bx benign, rectum bx acutely and chronically inflamed granulation tissue. GS following. Colonoscopy (06/03/17)---> 1. Multiple large ulcers were found in the sigmoid colon, at the splenic flexure, and in the descending colon 2. Large ulcer was found in the transverse colon with colonic stricture scope could not pass beyond; biopsies were taken. Pathology with moderate chronic active colitis with features of ulceration, negative for glandular dysplasia or malignancy. Plan is for repeat sigmoidoscopy in am with pediatric endoscope. Pt is agreeable. - CDiff Colitis, Epid 027. Oral Vanco, Flagyl. - Severe sepsis, leukocytosis. Improved 5.2. - Anemia. 9.5/29.0 - EDGARDO. Improved. Creat. better. Nephrology following - CMP, CHF, DM, Hyperlipidemia per attending. PLAN - Plan for flexible sigmoidoscopy in am with pediatric scope - Obtain consents - NPO after MN - SSE x 2 6am on 06/10 - Cont. Oral Vanco - Cont. Flagyl - Monitor labs - Supportive care - Consider CTA after sigmoidoscopy now that EDGARDO improved, US suggested ? >50% stenosis in the celiac, sma - Patient seen and examined by and myself and this note is written on his behalf (Caridad Bradford) Physician Comments Patient seen and examined Agree with above Continue with current supportive care Monitor labs Flexible sigmoidoscopy tomorrow (Emeterio Conrad MD) Caridad Bradford Jun 09, 2017 13:15 Emeterio Conrad MD Jun 09, 2017 22:37
[2017-06-09] MEDS: MAGNESIUM SULFATE 1 GM PREMIX 100 ML IV SCH ×2 (13:35→15:00)
--- NOTE | 2017-06-09 13:40 | HHI.IDPN ---
Subjective Subjective Remarks 66 year old male admitted with abdominal pain and possible bowel obstruction. Has been diagnosed with recurrent C difficile colitis. Colonoscopy showed stricture in splenic flexure Notes reviewed Temps ok No abdominal pain No N/V Appetite poor Still with diarrhea, described it as "creamy" Colonoscopy showed multiple colonic ulcers, path no CA WBC down to normal Creatinine is now normal Antibiotics PO Vancomycin IV Flagyl Lines RSC TLC Past Medical History 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 difficile colitis RLE fracture, required a cast Past Surgical History R knee surgery CT for PTX Allergies: Coded Allergies: No Known Allergies (Unverified Adverse Reaction, Unknown, 05/25/17) Objective . Vital Signs Date Time Temp Pulse Resp B/P (MAP) Pulse Ox O2 Delivery O2 Flow Rate FiO2 06/09/17 12:04 98.7 86 18 116/69 (85) 97 06/09/17 08:05 98.5 79 18 134/67 (89) 91 06/09/17 07:30 74 06/09/17 04:00 98.6 86 18 134/63 (86) 92 06/09/17 00:00 97.7 76 18 102/52 (69) 91 06/08/17 20:00 99.2 75 18 120/59 (79) 93 06/08/17 19:00 80 06/08/17 16:26 98.8 84 20 109/60 (76) 96 06/09/17 06/09/17 06/10/17 15:00 23:00 07:00 # Voids 2 # Bowel Movements 2 . Laboratory Tests Test 06/08/17 06:00 06/09/17 06:05 White Blood Count 6.3 TH/MM3 5.2 TH/MM3 Red Blood Count 3.54 MIL/MM3 3.28 MIL/MM3 Hemoglobin 10.1 GM/DL 9.5 GM/DL Hematocrit 31.2 % 29.0 % Mean Corpuscular Volume 88.3 FL 88.5 FL Mean Corpuscular Hemoglobin 28.7 PG 28.9 PG Mean Corpuscular Hemoglobin Concent 32.5 % 32.6 % Red Cell Distribution Width 16.5 % 16.4 % Platelet Count 51 TH/MM3 52 TH/MM3 Mean Platelet Volume 10.6 FL 9.9 FL Laboratory Tests Test 06/08/17 06:00 06/09/17 06:05 Blood Urea Nitrogen 14 MG/DL 11 MG/DL Creatinine 0.77 MG/DL 0.72 MG/DL Random Glucose 120 MG/DL 223 MG/DL Total Protein 4.9 GM/DL Calcium Level 7.3 MG/DL 7.6 MG/DL Magnesium Level 1.6 MG/DL 1.5 MG/DL Sodium Level 143 MEQ/L 141 MEQ/L Potassium Level 3.4 MEQ/L 3.6 MEQ/L Chloride Level 113 MEQ/L 111 MEQ/L Carbon Dioxide Level 21.4 MEQ/L 19.7 MEQ/L Anion Gap 9 MEQ/L 10 MEQ/L Estimat Glomerular Filtration Rate 101 ML/MIN 109 ML/MIN Protein Corrected Calcium 8.5 MG/DL Phosphorus Level 1.8 MG/DL 1.5 MG/DL Imaging Last Impressions Enema w/Water Soluble 05/28/17 0000 Signed Impressions: Service Date/Time: May 15:14 - CONCLUSION: Limited examination. However, there is a focal high grade stricture involving the junction between the transverse colon and descending colon at the level of the splenic flexure on the left side. Neoplastic disease is the primary consideration. John Francois MD Chest X-Ray 05/27/17 0600 Signed Impressions: Service Date/Time: Saturday, May 27, 2017 05:19 - CONCLUSION: Developing left lung infiltrates. Forrest Green MD Abdomen Ultrasound 05/27/17 0000 Signed Impressions: Service Date/Time: Saturday, May 27, 2017 16:31 - CONCLUSION: Discordant velocities in imaging findings. CT angiography may be of benefit. Delfin Mittal MD FACR Abdomen/Pelvis CT 05/25/17 1428 Signed Impressions: Service Date/Time: Thursday, May 25, 2017 16:29 - CONCLUSION: 1. Severe small bowel and colonic distention to the level of the splenic flexure where there is a sharp transition zone. Obstructing neoplasm is not excluded. Willi Muñoz MD Foot X-Ray 05/25/17 1401 Signed Impressions: Service Date/Time: Thursday, May 25, 2017 15:01 - CONCLUSION: Spiral fracture fifth metatarsal. Delfin Mittal MD FACR Physical Exam GENERAL: Awake and alert, NAD SKIN: Cool and dry. No generalized rash EYES: [place] conjunctiva. No petechia or hemorrhage. Pupils equal, round and reactive to light. Extraocular movements full and intact. No scleral icterus. EARS, NOSE AND THROAT: Nose without bleeding or purulent nasal discharge. Mucous membranes pink and moist. Poor dentition. NECK: Trachea midline. Supple and not tender, no meningeal signs CARDIOVASCULAR: Regular rate and rhythm. No murmurs, rubs or gallops heard. Pacer in L upper chest, with no evidence of infection RESPIRATORY: Clear to auscultation. No rales, wheezing or rhonchi. Decreased at bases ABDOMEN: Soft, not distended, no tenderness. Bowel sounds present and hypoactive, no guarding. No rebound. No organomegaly. EXTREMITIES: No clubbing, cyanosis, or edema. No calf tenderness. Well perfused and warm. A small ulcer in R medial heel, with no evidence of infection NEUROLOGICAL: NON FOCAL PSYCHIATRIC: Normal affect, calm and cooperative. LINE: No evidence of infection Assessment & Plan Remarks IMPRESSION Sepsis on presentation, with shock, BP better. Has N/V and abdominal pain, resolved, still with diarrhea - ?Recurrent C diff colitis, ?ischemic bowel (previous CTA ok per records, ?due to low flow state from hypotension) - high volume diarrhea - has ulcers in colon, path pending Iveth fragilis bacteremia Partial Bowel obstruction, last colonoscopy no mention of colon mass, has stricture in splenic flexure - has multiple colonic ulcers, no CA on path Renal failure, resolved RECOMMENDATION Continue Vancomycin po Change po Flagyl and give 7 days more of po GI to do another scope with smaller scope Monitor progress D/W RN D/W Smiley Cooper MD Jun 09, 2017 13:40
[2017-06-09] MEDS ORDERED: SODIUM CHLORID 0.9% 500 ML IV PRN (20:00)
[2017-06-09] MEDS ORDERED: LACTATED RINGER'S 1000 ML IV PRN (20:00)
[2017-06-09] MEDS ORDERED: CHLORHEXIDINE GLUCONATE 2 % 1 PACK (2 CLOTHS) TOPICAL PRN (20:15)
[2017-06-09] MEDS ORDERED: POVIDONE IODINE 5% (ANTISEPSIS KIT) 4 APPLICATIONS EACH NARE PRN (20:15)
[2017-06-09] MEDS ORDERED: METOPROLOL TARTRATE 25 MG TAB PO PRN (20:15)
[2017-06-09] MEDS ORDERED: INSULIN HUMAN REGULAR 1,000 UNITS/10 ML VIAL SQ PRN (20:15)
[2017-06-09] MEDS: DONEPEZIL HCL 5 MG TAB PO SCH (20:50)
[2017-06-09] MEDS: metroNIDAZOLE 500 MG TAB PO SCH (20:50)
[2017-06-10] VITALS (8 sets, daily range): BP systolic 122–141; BP diastolic 62–67; PULSE 65–82; RESP 18; TEMP 97.1–98.6; O2SAT 93–96
[2017-06-10] MEDS: metroNIDAZOLE 500 MG TAB PO SCH ×3 (05:18→22:29)
[2017-06-10] MEDS: ACETAMINOPHEN/HYDROcodone 325 MG/5 MG TAB PO PRN ×2 (05:18→18:36)
[2017-06-10] MEDS: INSULIN ASPART SUPPLEMENTAL SCALE SQ SCH ×4 (08:00→22:31)
[2017-06-10] MEDS: FAMOTIDINE 20 MG TAB PO SCH ×2 (09:00→22:29)
[2017-06-10] MEDS: SODIUM CHLORIDE 0.9% FLUSH 10 ML FLUSH IV FLUSH SCH ×2 (09:00→21:00)
[2017-06-10] MEDS: GABAPENTIN 100 MG CAP PO SCH ×3 (09:00→16:57)
[2017-06-10] MEDS: COLLAGENASE OINT 30 GM TUBE TOPICAL SCH (09:00)
[2017-06-10 09:17] LABS: AUTOMATED NEUTROPHIL # 4.1 TH/MM3 (1.8-7.7); BASOPHIL # 0.1 TH/MM3 (0-0.2); EOSINOPHIL # 0.1 TH/MM3 (0-0.4); EOSINOPHIL % 1.1 % (0.0-4.0); HEMATOCRIT 43.4 % (39.0-51.0); LYMPH % 16.5 % (9.0-44.0); LYMPHOCYTE # 0.9 TH/MM3 (1.0-4.8); MEAN CELL VOLUME 86.2 FL (80.0-100.0); MEAN CORPUSCULAR HEMOGLOBIN 28.2 PG (27.0-34.0); MEAN CORPUSCULAR HGB CONC 32.7 % (32.0-36.0); MONO % 5.3 % (0.0-8.0); NEUT % 76.1 % (16.0-70.0); PLATELET COUNT 50 TH/MM3 (150-450); RED BLOOD COUNT 5.04 MIL/MM3 (4.50-5.90); RED CELL DISTRIBUTION WIDTH 16.3 % (11.6-17.2); WHITE BLOOD COUNT 5.4 TH/MM3 (4.0-11.0)
[2017-06-10 09:18] LABS: HEMO FLAGS AUTO DIFF
[2017-06-10] MEDS: FLUoxetine HCL 20 MG CAP PO SCH (09:25)
[2017-06-10] MEDS: VANCOMYCIN 500 MG VIAL (FOR ORAL USE ONLY) PO SCH ×4 (09:26→22:29)
--- NOTE | 2017-06-10 10:05 | HHI.PR ---
Subjective Remarks Follow up for C. difficile colitis, colonic stricture. Patient is currently doing well. He is going for sigmoidoscopy today. He reports improvement of his diarrheal symptoms. No fever or chills. Objective Vitals Vital Signs Date Time Temp Pulse Resp B/P (MAP) Pulse Ox O2 Delivery O2 Flow Rate FiO2 06/10/17 07:54 98.3 71 18 141/65 (90) 95 06/10/17 04:00 97.1 70 18 122/62 (82) 93 06/10/17 00:00 98.2 69 18 122/67 (85) 94 06/09/17 20:00 98.3 72 18 120/64 (82) 94 06/09/17 19:00 73 06/09/17 16:33 97.9 83 18 118/64 (82) 91 06/09/17 12:04 98.7 86 18 116/69 (85) 97 I/O 06/09/17 06/09/17 06/09/17 06/10/17 06/10/17 06/10/17 06:59 14:59 22:59 06:59 14:59 22:59 Intake Total 200 ml 100 ml Output Total 300 ml Balance 200 ml -200 ml IV Total 200 ml 100 ml Output Urine Total 300 ml # Voids 2 2 # Bowel Movements 2 1 4 Result Diagram: 06/10/17 0813 06/09/17 0605 Imaging Last Impressions Foot X-Ray 06/08/17 0000 Signed Impressions: Service Date/Time: Thursday, June 08, 2017 22:45 - CONCLUSION: Healing fracture of the fifth metatarsal neck without displacement. Dmitry Balbuena MD Chest X-Ray 06/06/17 0000 Signed Impressions: Service Date/Time: Tuesday, June 06, 2017 12:10 - CONCLUSION: 1. Plain film findings characteristic of interval development of CHF with bibasilar small effusions and concomitant airspace consolidation in the left base. 2. Stable granulomatous type calcification in the right upper lung. 3. Interval removal of the nasogastric tube and right subclavian central venous catheter. 4. 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 However, there is a focal high grade stricture involving the junction between the transverse colon and descending colon at the level of the splenic flexure on the left side. Neoplastic disease is the primary consideration. John Francois MD Abdomen Ultrasound 05/27/17 0000 Signed Impressions: Service Date/Time: Saturday, May 27, 2017 16:31 - CONCLUSION: Discordant velocities in imaging findings. CT angiography may be of benefit. Delfin Mittal MD FACR Abdomen/Pelvis CT 05/25/17 1428 Signed Impressions: Service Date/Time: Thursday, May 25, 2017 16:29 - CONCLUSION: 1. Severe small bowel and colonic distention to the level of the splenic flexure where there is a sharp transition zone. Obstructing neoplasm is not excluded. Willi Muñoz MD Objective Remarks GENERAL: Alert, NAD. SKIN: Warm and dry. Significant redness and tenderness at around the perianal/ buttock area. HEAD: Normocephalic. EYES: No scleral icterus. No injection or drainage. NECK: Supple, trachea midline. No JVD or lymphadenopathy. CARDIOVASCULAR: Regular rate and rhythm without murmurs, gallops, or rubs. RESPIRATORY: Breath sounds equal bilaterally. No accessory muscle use. GASTROINTESTINAL: Abdomen soft, non-tender, nondistended. MUSCULOSKELETAL: No cyanosis, or edema. BACK: Nontender without obvious deformity. No CVA tenderness. Procedures 05/26/17 central line placement 05/26/17 arterial line placement 05/27/17 colonoscopy 06/03/17 colonoscopy Date of Insertion: May 26, 2017 Line: Central Venous Catheter Side: Right Location: Subclavian A/P Problem List: (1) Bowel obstruction ICD Code: K56.609 - Unspecified intestinal obstruction, unspecified as to partial versus complete obstruction Status: Acute (2) Sepsis ICD Code: A41.9 - Sepsis, unspecified organism Status: Acute (3) DM (diabetes mellitus) ICD Code: E11.9 - Type 2 diabetes mellitus without complications Status: Chronic (4) HTN (hypertension) ICD Code: I10 - Essential (primary) hypertension Status: Chronic (5) EDGARDO (acute kidney injury) ICD Code: N17.9 - Acute kidney failure, unspecified Status: Acute Assessment and Plan Mr. 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 On arrival, patient has leukocytosis with WBC count 20.1K, lactic acid 4.7. CT abdomen pelvis shows small bowel and colonic distention with transition point at the splenic flexure. CT abdomen and pelvis also indicated possibility of neoplasm causing obstruction. Patient became hemodynamically unstable and was admitted to ICU on 05/26/2017. C. Diff was positive. - C. Diff colitis - Continue PO Vanc and IV Flagyl. - Wound care for buttock, jason-rectal skin irritation. - Colonoscopy shows large ulcers in sigmoid colol, large ulcer in the transverse colon with colonic stricture. - Repeat Sigmoidoscopy on 06/10/2017. - Acute kidney injury - Creatinine improved from 4.23 on 05/29/2017 --> 0.7 to on 06/09/2017. - Diabetes mellitus - Continue Levemir 10 units QHS and sliding scale insulin - May need to add pre-meal insulin if necessary. - Hypokalemia - improved K+ 3.6. - Hypomagnesemia - Mg 1.5. Replaced with 2 g of Mag sulfate IV. - Thrombocytopenia - PLT count 52K. Hematology evaluated patient. - likely due to infection. Full code. SCDs. Discharge plan: When okay with GI and general surgery, we can discharge patient to SNF. Problem Qualifiers (1) Bowel obstruction: Qualified Codes: K56.699 - Other intestinal obstruction unspecified as to partial versus complete obstruction (2) Sepsis: Qualified Codes: A41.9 - Sepsis, unspecified organism (3) HTN (hypertension): Qualified Codes: I10 - Essential (primary) hypertension Steven Blackmon DO Jun 10, 2017 10:05 am
[2017-06-10 10:25] LABS: PLATELET ESTIMATE SMEAR LOW (NORMAL); PLATELET MORPHOLOGY NORMAL (NORMAL); SCAN/DIFF AUTO DIFF CONFIRMED
--- NOTE | 2017-06-10 14:10 | HHI.IDPN ---
Subjective Subjective Remarks 66 year old male admitted with abdominal pain and possible bowel obstruction. Has been diagnosed with recurrent C difficile colitis. 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 difficile colitis RLE fracture, required a cast Past Surgical History R knee surgery CT for PTX Allergies: Coded Allergies: No Known Allergies (Unverified Adverse Reaction, Unknown, 05/25/17) Objective . Vital Signs Date Time Temp Pulse Resp B/P (MAP) Pulse Ox O2 Delivery O2 Flow Rate FiO2 06/10/17 12:07 98.4 70 18 138/63 (88) 96 06/10/17 10:10 65 06/10/17 07:54 98.3 71 18 141/65 (90) 95 06/10/17 04:00 97.1 70 18 122/62 (82) 93 06/10/17 00:00 98.2 69 18 122/67 (85) 94 06/09/17 20:00 98.3 72 18 120/64 (82) 94 06/09/17 19:00 73 06/09/17 16:33 97.9 83 18 118/64 (82) 91 06/10/17 06/10/17 06/11/17 15:00 23:00 07:00 Output Total 300 ml Balance -300 ml Output Urine Total 300 ml # Voids 2 # Bowel Movements 5 . Laboratory Tests Test 06/09/17 06:05 06/10/17 08:13 White Blood Count 5.2 TH/MM3 5.4 TH/MM3 Red Blood Count 3.28 MIL/MM3 5.04 MIL/MM3 Hemoglobin 9.5 GM/DL 14.2 GM/DL Hematocrit 29.0 % 43.4 % Mean Corpuscular Volume 88.5 FL 86.2 FL Mean Corpuscular Hemoglobin 28.9 PG 28.2 PG Mean Corpuscular Hemoglobin Concent 32.6 % 32.7 % Red Cell Distribution Width 16.4 % 16.3 % Platelet Count 52 TH/MM3 50 TH/MM3 Mean Platelet Volume 9.9 FL 9.2 FL Neutrophils (%) (Auto) 76.1 % Lymphocytes (%) (Auto) 16.5 % Monocytes (%) (Auto) 5.3 % Eosinophils (%) (Auto) 1.1 % Basophils (%) (Auto) 1.0 % Neutrophils # (Auto) 4.1 TH/MM3 Lymphocytes # (Auto) 0.9 TH/MM3 Monocytes # (Auto) 0.3 TH/MM3 Eosinophils # (Auto) 0.1 TH/MM3 Basophils # (Auto) 0.1 TH/MM3 CBC Comment AUTO DIFF Differential Comment AUTO DIFF CONFIRMED Platelet Estimate LOW Platelet Morphology Comment NORMAL Hematology Comments Laboratory Tests Test 06/09/17 06:05 Blood Urea Nitrogen 11 MG/DL Creatinine 0.72 MG/DL Random Glucose 223 MG/DL Calcium Level 7.6 MG/DL Phosphorus Level 1.5 MG/DL Magnesium Level 1.5 MG/DL Sodium Level 141 MEQ/L Potassium Level 3.6 MEQ/L Chloride Level 111 MEQ/L Carbon Dioxide Level 19.7 MEQ/L Anion Gap 10 MEQ/L Estimat Glomerular Filtration Rate 109 ML/MIN Imaging Last Impressions Enema w/Water Soluble 05/28/17 0000 Signed Impressions: Service Date/Time: May 15:14 - CONCLUSION: Limited examination. However, there is a focal high grade stricture involving the junction between the transverse colon and descending colon at the level of the splenic flexure on the left side. Neoplastic disease is the primary consideration. John Francois MD Chest X-Ray 05/27/17 0600 Signed Impressions: Service Date/Time: Saturday, May 27, 2017 05:19 - CONCLUSION: Developing left lung infiltrates. Forrest Green MD Abdomen Ultrasound 05/27/17 0000 Signed Impressions: Service Date/Time: Saturday, May 27, 2017 16:31 - CONCLUSION: Discordant velocities in imaging findings. CT angiography may be of benefit. Delfin Mittal MD FACR Abdomen/Pelvis CT 05/25/17 1428 Signed Impressions: Service Date/Time: Thursday, May 25, 2017 16:29 - CONCLUSION: 1. Severe small bowel and colonic distention to the level of the splenic flexure where there is a sharp transition zone. Obstructing neoplasm is not excluded. Willi Muñoz MD Foot X-Ray 05/25/17 1401 Signed Impressions: Service Date/Time: Thursday, May 25, 2017 15:01 - CONCLUSION: Spiral fracture fifth metatarsal. Delfin Mittal MD FACR Physical Exam GENERAL: Awake and alert, NAD SKIN: Cool and dry. No generalized rash EYES: [place] conjunctiva. No petechia or hemorrhage. Pupils equal, round and reactive to light. Extraocular movements full and intact. No scleral icterus. EARS, NOSE AND THROAT: Nose without bleeding or purulent nasal discharge. Mucous membranes pink and moist. Poor dentition. NECK: Trachea midline. Supple and not tender, no meningeal signs CARDIOVASCULAR: Regular rate and rhythm. No murmurs, rubs or gallops heard. Pacer in L upper chest, with no evidence of infection RESPIRATORY: Clear to auscultation. No rales, wheezing or rhonchi. Decreased at bases ABDOMEN: Soft, not distended, no tenderness. Bowel sounds present and hypoactive, no guarding. No rebound. No organomegaly. EXTREMITIES: No clubbing, cyanosis, or edema. No calf tenderness. Well perfused and warm. A small ulcer in R medial heel, with no evidence of infection NEUROLOGICAL: NON FOCAL PSYCHIATRIC: Normal affect, calm and cooperative. LINE: No evidence of infection Assessment & Plan Remarks IMPRESSION Sepsis on presentation, with shock, BP better. Has N/V and abdominal pain, resolved, still with diarrhea - ?Recurrent C diff colitis, ?ischemic bowel (previous CTA ok per records, ?due to low flow state from hypotension) - high volume diarrhea - has ulcers in colon, path pending Iveth fragilis bacteremia Partial Bowel obstruction, last colonoscopy no mention of colon mass, has stricture in splenic flexure - has multiple colonic ulcers, no CA on path Renal failure, resolved RECOMMENDATION Continue Vancomycin po Change po Flagyl and give 7 days more of po For sigmoidoscopy today I would taper his po Vanco since he has a very severe case of C diff colitis Monitor progress D/W Smiley Bethea MD Jun 10, 2017 14:10
--- NOTE | 2017-06-10 15:04 | PD.PROCEDR ---
GI Procedure REFERRING PHYSICIAN Dr. Cornelius PROCEDURE PERFORMED Colonoscopy with biopsy INDICATION FOR PROCEDURE Colitis, colonic stricture PROCEDURE: The procedure, risks and benefits were discussed with Mr. Gutierrez and informed consent was obtained. Anesthesia sedated him with Diprivan. He was placed in the left lateral decubitus position. Colonoscopy: The Pentax videoscope was introduced through the rectum and advanced to the cecum where the ileocecal valve and appendiceal orifice were identified. We used the pediatric EGD scope in order to traverse the stricture and in fact we were able to reach the cecum. Retroflexion was performed in the rectum. Colonic prep was good to fair FINDINGS: Colonic withdrawal time greater than 6 minutes as the scope was slowly withdrawn colonic mucosa was carefully inspected there was some mild patchy nodular erythema noted in the mid transverse colon and this was biopsied but significant changes were noted from the distal transverse or weight down to the rectum there was a significant stricturing at the splenic flexure the mucosa was friable erythemic benign-appearing it was hard to traverse with the pediatric EGD scope but I was able to do that with no obvious resulting tears multiple biopsies were taken from the area of stricture plus multiple biopsies were taken from the descending sigmoid and rectal region whereby the mucosa appeared to be somewhat erythemic but mostly edematous retroflexion and rectal examination were basically unremarkable ESTIMATED BLOOD LOSS: None SPECIMENS REMOVED: Colonic Biopsies COMPLICATIONS: None IMPRESSION: Changes most consistent with colitis probably of the ulcerative type involving left colon Splenic flexure stricture benign appearing PLAN: Await biopsies Monitor labs Recommend Asacol 800 mg 3 times a day Consider steroids if okay with infectious disease Consider repeat colonoscopy in 6-12 months depending on symptoms Recommend low residue diet Emeterio Conrad MD Jun 10, 2017 15:04
--- NOTE | 2017-06-10 17:39 | PD.ONC.PN ---
Objective Data Date Time Temp Pulse Resp B/P (MAP) Pulse Ox O2 Delivery O2 Flow Rate FiO2 06/10/17 16:24 98.3 72 18 127/63 (84) 94 06/10/17 15:56 66 18 114/59 (77) 95 06/10/17 15:42 69 19 109/58 (75) 92 06/10/17 12:07 98.4 70 18 138/63 (88) 96 06/10/17 10:10 65 06/10/17 07:54 98.3 71 18 141/65 (90) 95 06/10/17 04:00 97.1 70 18 122/62 (82) 93 06/10/17 00:00 98.2 69 18 122/67 (85) 94 06/09/17 20:00 98.3 72 18 120/64 (82) 94 06/09/17 19:00 73 06/10/17 06/10/17 06/10/17 07:00 15:00 23:00 Intake Total 200 ml Output Total 300 ml Balance -300 ml 200 ml Result Diagram: 06/10/17 0813 06/09/17 0605 Laboratory Results Laboratory Tests Test 06/10/17 08:13 White Blood Count 5.4 TH/MM3 Red Blood Count 5.04 MIL/MM3 Hemoglobin 14.2 GM/DL Hematocrit 43.4 % Mean Corpuscular Volume 86.2 FL Mean Corpuscular Hemoglobin 28.2 PG Mean Corpuscular Hemoglobin Concent 32.7 % Red Cell Distribution Width 16.3 % Platelet Count 50 TH/MM3 Mean Platelet Volume 9.2 FL Neutrophils (%) (Auto) 76.1 % Lymphocytes (%) (Auto) 16.5 % Monocytes (%) (Auto) 5.3 % Eosinophils (%) (Auto) 1.1 % Basophils (%) (Auto) 1.0 % Neutrophils # (Auto) 4.1 TH/MM3 Lymphocytes # (Auto) 0.9 TH/MM3 Monocytes # (Auto) 0.3 TH/MM3 Eosinophils # (Auto) 0.1 TH/MM3 Basophils # (Auto) 0.1 TH/MM3 CBC Comment AUTO DIFF Differential Comment AUTO DIFF CONFIRMED Platelet Estimate LOW Platelet Morphology Comment NORMAL Hematology Comments Administered Medications Medications (Trade) Dose Ordered Sig/Tricia Route PRN Reason Start Time Stop Time Status Last Admin Dose Admin Sodium Chloride (NS Flush) 2 ml BID IV FLUSH 05/25/17 21:00 06/10/17 09:00 Ondansetron HCl (Zofran Inj) 4 mg Q6H PRN IVP NAUSEA OR VOMITING 05/25/17 17:45 06/05/17 22:59 Donepezil HCl (Aricept) 5 mg HS PO 05/26/17 21:00 06/09/17 20:50 Fluoxetine HCl (PROzac) 40 mg DAILY PO 05/26/17 09:00 06/10/17 09:25 Dextrose (D50w (Vial) Inj) 50 ml UNSCH PRN IV PUSH HYPOGLYCEMIA-SEE COMMENTS 05/25/17 23:00 06/01/17 09:08 Insulin Aspart (NovoLOG SUPPLEMENTAL SCALE) 1 ACHS SLIDING SCALE SQ 05/26/17 08:00 06/10/17 17:00 Gabapentin (Neurontin) 100 mg TID PO 05/26/17 18:00 06/09/17 17:22 Collagenase (Santyl Oint) 1 applic DAILY TOPICAL 05/27/17 09:00 06/10/17 09:00 Vancomycin HCl (VANCOMYCIN for oral use only) 500 mg QID PO 05/27/17 13:00 06/10/17 17:04 Famotidine (Pepcid) 20 mg BID PO 06/04/17 21:00 06/09/17 20:50 Acetaminophen/ Hydrocodone Bitart ([place] 5-325 Mg) 1 tab Q6H PRN PO Pain 6-10 06/04/17 16:45 06/10/17 05:18 Metronidazole (Flagyl) 500 mg Q8HR PO 06/09/17 22:00 06/16/17 21:59 06/10/17 13:24 Objective Remarks GENERAL: Well-nourished, well-developed patient. SKIN: Warm and dry. HEAD: Normocephalic. EYES: No scleral icterus. No injection or drainage. NECK: Supple, trachea midline. No JVD or lymphadenopathy. LYMPHATIC: No adenopathy. CARDIOVASCULAR: Regular rate and rhythm without murmurs. RESPIRATORY: Breath sounds equal bilaterally. No accessory muscle use. GASTROINTESTINAL: Abdomen soft, non-tender, nondistended. EXTREMITIES: No cyanosis, or edema. MUSCULOSKELETAL: Adequate muscle tone. NEUROLOGICAL: No obvious focal deficit. Awake, alert, and oriented x3. PSYCHIATRIC: Appropriate mood and affect; insight and judgment normal. Assessment/Plan Problem List: (1) Thrombocytopenia ICD Codes: D69.6 - Thrombocytopenia, unspecified Plan: 06/09: platelet count 52K today. expect counts to improve as infection improves. --most likely due to a sepsis, infection and/or DIC. --No evidence of TTP or HUS noted. --HIT negative. --peripheral smear does not show any schistocytes. --No evidence of microangiopathic hemolytic process noted. Assessment 66y/o male with progressive thrombocytopenia. h/o COPD, Diabetes mellitus, Hypertension, Third degree AV block Bennett Suarez MD Jun 10, 2017 17:39
--- NOTE | 2017-06-10 17:39 | PD.ONC.PN ---
Subjective Subjective Remarks Pt seen and examined earlier this am and this note reflects that encounter Afebrile Pt resting in bed in no acute distress Reports continued diarrhea NPO for procedure later today Objective Data Date Time Temp Pulse Resp B/P (MAP) Pulse Ox O2 Delivery O2 Flow Rate FiO2 06/10/17 16:24 98.3 72 18 127/63 (84) 94 06/10/17 15:56 66 18 114/59 (77) 95 06/10/17 15:42 69 19 109/58 (75) 92 06/10/17 12:07 98.4 70 18 138/63 (88) 96 06/10/17 10:10 65 06/10/17 07:54 98.3 71 18 141/65 (90) 95 06/10/17 04:00 97.1 70 18 122/62 (82) 93 06/10/17 00:00 98.2 69 18 122/67 (85) 94 06/09/17 20:00 98.3 72 18 120/64 (82) 94 06/09/17 19:00 73 06/10/17 06/10/17 06/10/17 07:00 15:00 23:00 Intake Total 200 ml Output Total 300 ml Balance -300 ml 200 ml Result Diagram: 06/10/17 0813 06/09/17 0605 Laboratory Results Laboratory Tests Test 06/10/17 08:13 White Blood Count 5.4 TH/MM3 Red Blood Count 5.04 MIL/MM3 Hemoglobin 14.2 GM/DL Hematocrit 43.4 % Mean Corpuscular Volume 86.2 FL Mean Corpuscular Hemoglobin 28.2 PG Mean Corpuscular Hemoglobin Concent 32.7 % Red Cell Distribution Width 16.3 % Platelet Count 50 TH/MM3 Mean Platelet Volume 9.2 FL Neutrophils (%) (Auto) 76.1 % Lymphocytes (%) (Auto) 16.5 % Monocytes (%) (Auto) 5.3 % Eosinophils (%) (Auto) 1.1 % Basophils (%) (Auto) 1.0 % Neutrophils # (Auto) 4.1 TH/MM3 Lymphocytes # (Auto) 0.9 TH/MM3 Monocytes # (Auto) 0.3 TH/MM3 Eosinophils # (Auto) 0.1 TH/MM3 Basophils # (Auto) 0.1 TH/MM3 CBC Comment AUTO DIFF Differential Comment AUTO DIFF CONFIRMED Platelet Estimate LOW Platelet Morphology Comment NORMAL Hematology Comments Administered Medications Medications (Trade) Dose Ordered Sig/Tricia Route PRN Reason Start Time Stop Time Status Last Admin Dose Admin Sodium Chloride (NS Flush) 2 ml BID IV FLUSH 05/25/17 21:00 06/10/17 09:00 Ondansetron HCl (Zofran Inj) 4 mg Q6H PRN IVP NAUSEA OR VOMITING 05/25/17 17:45 06/05/17 22:59 Donepezil HCl (Aricept) 5 mg HS PO 05/26/17 21:00 06/09/17 20:50 Fluoxetine HCl (PROzac) 40 mg DAILY PO 05/26/17 09:00 06/10/17 09:25 Dextrose (D50w (Vial) Inj) 50 ml UNSCH PRN IV PUSH HYPOGLYCEMIA-SEE COMMENTS 05/25/17 23:00 06/01/17 09:08 Insulin Aspart (NovoLOG SUPPLEMENTAL SCALE) 1 ACHS SLIDING SCALE SQ 05/26/17 08:00 06/10/17 17:00 Gabapentin (Neurontin) 100 mg TID PO 05/26/17 18:00 06/09/17 17:22 Collagenase (Santyl Oint) 1 applic DAILY TOPICAL 05/27/17 09:00 06/10/17 09:00 Vancomycin HCl (VANCOMYCIN for oral use only) 500 mg QID PO 05/27/17 13:00 06/10/17 17:04 Famotidine (Pepcid) 20 mg BID PO 06/04/17 21:00 06/09/17 20:50 Acetaminophen/ Hydrocodone Bitart ([place] 5-325 Mg) 1 tab Q6H PRN PO Pain 6-10 06/04/17 16:45 06/10/17 05:18 Metronidazole (Flagyl) 500 mg Q8HR PO 06/09/17 22:00 06/16/17 21:59 06/10/17 13:24 Objective Remarks GENERAL: Middle aged male lying supine in bed in no obvious distress. SKIN: Warm and dry. HEAD: Normocephalic. EYES: No injection or drainage. NECK: Supple, trachea midline. CARDIOVASCULAR: Regular rate and rhythm. RESPIRATORY: Breath sounds equal bilaterally. No accessory muscle use. GASTROINTESTINAL: Abdomen soft, non-tender, nondistended. EXTREMITIES: No cyanosis NEUROLOGICAL: Awake and alert. No obvious focal deficit. Assessment/Plan Problem List: (1) Thrombocytopenia ICD Codes: D69.6 - Thrombocytopenia, unspecified Plan: 06/10: Thrombocytopenia largely unchanged. Plan for flexible sigmoidoscopy today per GI. Continue to monitor CBC. --most likely due to a sepsis, infection and/or DIC. --No evidence of TTP or HUS noted. --HIT negative. --peripheral smear does not show any schistocytes. --No evidence of microangiopathic hemolytic process noted. Assessment 66y/o male with progressive thrombocytopenia. h/o COPD, Diabetes mellitus, Hypertension, Third degree AV block Attending Statement The exam, history, and the medical decision-making described in the above note were completed with the assistance of the mid-level provider. I reviewed and agree with the findings presented. I attest that I had a [id number] encounter with the patient on the same day, and personally performed and documented my assessment and findings in the medical record. no bleeding plat are low but stable. Julia Triana Jun 10, 2017 17:39 Bennett Suarez MD Jun 10, 2017 18:36
[2017-06-10] MEDS: DONEPEZIL HCL 5 MG TAB PO SCH (22:29)
[2017-06-10] MEDS: INSULIN DETEMIR 100 UNITS/ML VIAL SQ SCH (22:30)
[2017-06-10] MEDS ORDERED: DO NOT ADM ANY ANTICOAGULANT DRUGS PRN (23:00)
[2017-06-11] VITALS (7 sets, daily range): BP systolic 125–145; BP diastolic 60–77; PULSE 71–99; RESP 17–18; TEMP 97.5–98.7; O2SAT 95–99
[2017-06-11] MEDS: metroNIDAZOLE 500 MG TAB PO SCH ×3 (05:27→20:40)
[2017-06-11] MEDS ORDERED: DEXTROSE 50% IN WATER 50 ML SYRINGE IV PUSH ONE (05:30)
[2017-06-11] MEDS: DEXTROSE 50% IN WATER 50 ML VIAL(D50) IV PUSH PRN ×2 (05:36→05:37)
[2017-06-11 06:03] LABS: AUTOMATED NEUTROPHIL # 2.8 TH/MM3 (1.8-7.7); BASOPHIL % 1.1 % (0.0-2.0); EOSINOPHIL # 0.1 TH/MM3 (0-0.4); EOSINOPHIL % 1.8 % (0.0-4.0); HEMATOCRIT 31.2 % (39.0-51.0); LYMPHOCYTE # 1.1 TH/MM3 (1.0-4.8); MEAN CELL VOLUME 86.3 FL (80.0-100.0); MEAN CORPUSCULAR HEMOGLOBIN 28.4 PG (27.0-34.0); MEAN CORPUSCULAR HGB CONC 32.9 % (32.0-36.0); MONO % 6.7 % (0.0-8.0); NEUT % 64.4 % (16.0-70.0); PLATELET COUNT 99 TH/MM3 (150-450); RED BLOOD COUNT 3.61 MIL/MM3 (4.50-5.90); RED CELL DISTRIBUTION WIDTH 16.4 % (11.6-17.2); WHITE BLOOD COUNT 4.3 TH/MM3 (4.0-11.0)
[2017-06-11 06:32] LABS: HEMO FLAGS AUTO DIFF
[2017-06-11] MEDS: ACETAMINOPHEN/HYDROcodone 325 MG/5 MG TAB PO PRN ×2 (06:56→20:40)
[2017-06-11] MEDS: INSULIN ASPART SUPPLEMENTAL SCALE SQ SCH ×4 (08:00→20:52)
[2017-06-11 08:11] LABS: PLATELET ESTIMATE SMEAR LOW (NORMAL); PLATELET MORPHOLOGY NORMAL (NORMAL); SCAN/DIFF AUTO DIFF CONFIRMED
[2017-06-11] MEDS: COLLAGENASE OINT 30 GM TUBE TOPICAL SCH ×2 (09:00→10:00)
[2017-06-11] MEDS: GABAPENTIN 100 MG CAP PO SCH ×3 (09:00→15:34)
[2017-06-11] MEDS: FAMOTIDINE 20 MG TAB PO SCH ×2 (10:01→20:40)
[2017-06-11] MEDS: VANCOMYCIN 500 MG VIAL (FOR ORAL USE ONLY) PO SCH ×4 (10:02→20:41)
[2017-06-11] MEDS: SODIUM CHLORIDE 0.9% FLUSH 10 ML FLUSH IV FLUSH SCH ×2 (10:02→20:52)
[2017-06-11] MEDS: FLUoxetine HCL 20 MG CAP PO SCH (10:02)
--- NOTE | 2017-06-11 11:48 | HHI.GIFU ---
Subjective Remarks Resting in bed. States he is feeling better. He denies any abdominal pain, has some pain on buttocks when he wipes. Diarrhea improving. (Caridad Bradford) Objective Vitals I&O Vital Signs Date Time Temp Pulse Resp B/P (MAP) Pulse Ox O2 Delivery O2 Flow Rate FiO2 06/11/17 09:57 98.1 72 18 128/67 (87) 96 06/11/17 06:25 97.9 71 18 125/66 (85) 95 06/11/17 01:47 97.5 75 18 138/68 (91) 95 06/11/17 00:27 21 06/10/17 21:08 98.6 72 18 140/66 (90) 96 06/10/17 18:00 82 06/10/17 16:24 98.3 72 18 127/63 (84) 94 06/10/17 15:56 66 18 114/59 (77) 95 06/10/17 15:42 69 19 109/58 (75) 92 06/10/17 12:07 98.4 70 18 138/63 (88) 96 I/O 06/10/17 06/10/17 06/10/17 06/11/17 06/11/17 06/11/17 07:00 15:00 23:00 07:00 15:00 23:00 Intake Total 200 ml Output Total 300 ml 200 ml 275 ml Balance -300 ml 0 ml -275 ml Other 200 ml Output Urine Total 300 ml 200 ml 275 ml # Voids 2 # Bowel Movements 5 1 2 Laboratory Laboratory Tests Test 06/11/17 05:42 White Blood Count 4.3 Red Blood Count 3.61 Hemoglobin 10.2 Hematocrit 31.2 Mean Corpuscular Volume 86.3 Mean Corpuscular Hemoglobin 28.4 Mean Corpuscular Hemoglobin Concent 32.9 Red Cell Distribution Width 16.4 Platelet Count 99 Mean Platelet Volume 8.9 Neutrophils (%) (Auto) 64.4 Lymphocytes (%) (Auto) 26.0 Monocytes (%) (Auto) 6.7 Eosinophils (%) (Auto) 1.8 Basophils (%) (Auto) 1.1 Neutrophils # (Auto) 2.8 Lymphocytes # (Auto) 1.1 Monocytes # (Auto) 0.3 Eosinophils # (Auto) 0.1 Basophils # (Auto) 0.0 CBC Comment AUTO DIFF Differential Comment AUTO DIFF CONFIRMED Platelet Estimate LOW Platelet Morphology Comment NORMAL Random Glucose 95 Date/Time Source Procedure Growth Status 05/29/17 00:55 Blood Peripheral Aerobic Blood Culture - Final NO GROWTH IN 5 DAYS Complete 05/29/17 00:55 Blood Peripheral Anaerobic Blood Culture - Final NO GROWTH IN 5 DAYS Complete 05/28/17 20:45 Urine Catheterized Urine Urine Culture - Final NO GROWTH IN 48 HOURS. Complete Imaging Last Impressions Foot X-Ray 06/08/17 0000 Signed Impressions: Service Date/Time: Thursday, June 08, 2017 22:45 - CONCLUSION: Healing fracture of the fifth metatarsal neck without displacement. Dmitry Balbuena MD Chest X-Ray 06/06/17 0000 Signed Impressions: Service Date/Time: Tuesday, June 06, 2017 12:10 - CONCLUSION: 1. Plain film findings characteristic of interval development of CHF with bibasilar small effusions and concomitant airspace consolidation in the left base. 2. Stable granulomatous type calcification in the right upper lung. 3. Interval removal of the nasogastric tube and right subclavian central venous catheter. 4. 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 However, there is a focal high grade stricture involving the junction between the transverse colon and descending colon at the level of the splenic flexure on the left side. Neoplastic disease is the primary consideration. John Francois MD Abdomen Ultrasound 05/27/17 0000 Signed Impressions: Service Date/Time: Saturday, May 27, 2017 16:31 - CONCLUSION: Discordant velocities in imaging findings. CT angiography may be of benefit. Delfin Mittal MD FACR Abdomen/Pelvis CT 05/25/17 1428 Signed Impressions: Service Date/Time: Thursday, May 25, 2017 16:29 - CONCLUSION: 1. Severe small bowel and colonic distention to the level of the splenic flexure where there is a sharp transition zone. Obstructing neoplasm is not excluded. Willi Muñoz MD Physical Exam HEENT: Normocephalic; atraumatic; no jaundice. CHEST: CTA CARDIAC: RRR ABDOMEN: Soft, nondistended, nontender; no hepatosplenomegaly; bowel sounds are present in all four quadrants. ONLINE TRADER: Awake and alert x 3. (Caridad Bradford) Assessment and Plan Plan ASSESSMENT - Abd pain, N/V/D. CT abdomen and pelvis (05/25/17)---> Severe small bowel and colonic distention to the level of the splenic flexure where this is a sharp transition zone. Obstructing neoplasm is not excluded. S/P Colonoscopy (05/27/17)---> 1. Stricture splenic flexure-scope could not be passed, multiple ulcers in sigmoid,descending, rectum-biopsy fro splenic flexure, rectum 2. Retroflexed views revealed internal hemorrhoids 3. Retroflexed views revealed small internal hemorrhoids. Pathology splenic flexure with colonic mucosa with no significant histopathologic abnormalities, acutely and chronically inflamed granulation tissue. Pt has CDiff. ? ischemia. Unable to have CTA secondary to EDGARDO. US Abdomen (05/27/17)---> Discordant velocities in imaging findings, CTA may be of benefit. CEA 3.0, Ca 19-9 28.3. Gastrografin Enema (05/28/17)---> Limited examination. However there is a focal high grade stricture involving the junction between the transverse colon and descending colon at the level of the splenic flexure on the left side. Neoplastic disease is the primary consideration. splenic flex bx benign, rectum bx acutely and chronically inflamed granulation tissue. GS following. Colonoscopy (06/03/17)---> 1. Multiple large ulcers were found in the sigmoid colon, at the splenic flexure, and in the descending colon 2. Large ulcer was found in the transverse colon with colonic stricture scope could not pass beyond; biopsies were taken. Pathology with moderate chronic active colitis with features of ulceration, negative for glandular dysplasia or malignancy. S/P Colonoscocpy (06/10/17)----> Changes most consistent with colitis probably of the ulcerative type involving left colon Splenic flexure stricture benign appearing. Pathology pending. Asacol 800mg po TID. D/W michelle Cortes for steroids from ID standpoint. - CDiff Colitis, Epid 027. Oral Vanco, Flagyl. - Severe sepsis, leukocytosis. Improved WBC 4.3. - Anemia. HH Stable ..2. - EDGARDO. Improved. Creat. better. Nephrology following - CMP, CHF, DM, Hyperlipidemia per attending. PLAN - Low residue diet - Await pathology - Oral Vanco/Flagyl - Asacol 800mg po TID - Add Prednisone 40mg po daily- D/W Dr. Medina (ID) - Monitor labs - Supportive care - Patient seen and examined by and myself and this note is written on his behalf (Caridad Bradford) Physician Comments Patient seen and examined Agree with above Continue with current supportive care Monitor labs (Emeterio Conrad MD) Caridad Bradford Jun 11, 2017 11:48 Emeterio Conrad MD Jun 11, 2017 23:34
[2017-06-11] MEDS: predniSONE 20 MG TAB PO SCH (13:15)
--- NOTE | 2017-06-11 13:35 | HHI.PR ---
Subjective Remarks Follow up for C. difficile colitis, colonic stricture. She is currently doing well. Denies any chest pain, shortness of breath, fever or chills. He continues to have loose bowel movement multiple times. However his bowel movement is not watery diarrhea. He has significant irritation in the bilateral /rectum area. Objective Vitals Vital Signs Date Time Temp Pulse Resp B/P (MAP) Pulse Ox O2 Delivery O2 Flow Rate FiO2 06/11/17 13:01 98.1 72 18 128/68 (88) 95 06/11/17 09:57 98.1 72 18 128/67 (87) 96 06/11/17 06:25 97.9 71 18 125/66 (85) 95 06/11/17 01:47 97.5 75 18 138/68 (91) 95 06/11/17 00:27 21 06/10/17 21:08 98.6 72 18 140/66 (90) 96 06/10/17 18:00 82 06/10/17 16:24 98.3 72 18 127/63 (84) 94 06/10/17 15:56 66 18 114/59 (77) 95 06/10/17 15:42 69 19 109/58 (75) 92 I/O 06/10/17 06/10/17 06/10/17 06/11/17 06/11/17 06/11/17 07:00 15:00 23:00 07:00 15:00 23:00 Intake Total 200 ml Output Total 300 ml 200 ml 375 ml Balance -300 ml 0 ml -375 ml Other 200 ml Output Urine Total 300 ml 200 ml 375 ml # Voids 2 # Bowel Movements 5 1 2 Result Diagram: 06/11/17 0542 06/11/17 0542 Imaging Last Impressions Foot X-Ray 06/08/17 0000 Signed Impressions: Service Date/Time: Thursday, June 08, 2017 22:45 - CONCLUSION: Healing fracture of the fifth metatarsal neck without displacement. Dmitry Balbuena MD Chest X-Ray 06/06/17 0000 Signed Impressions: Service Date/Time: Tuesday, June 06, 2017 12:10 - CONCLUSION: 1. Plain film findings characteristic of interval development of CHF with bibasilar small effusions and concomitant airspace consolidation in the left base. 2. Stable granulomatous type calcification in the right upper lung. 3. Interval removal of the nasogastric tube and right subclavian central venous catheter. 4. 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 However, there is a focal high grade stricture involving the junction between the transverse colon and descending colon at the level of the splenic flexure on the left side. Neoplastic disease is the primary consideration. John Francois MD Abdomen Ultrasound 05/27/17 0000 Signed Impressions: Service Date/Time: Saturday, May 27, 2017 16:31 - CONCLUSION: Discordant velocities in imaging findings. CT angiography may be of benefit. Delfin Mittal MD FACR Abdomen/Pelvis CT 05/25/17 1428 Signed Impressions: Service Date/Time: Thursday, May 25, 2017 16:29 - CONCLUSION: 1. Severe small bowel and colonic distention to the level of the splenic flexure where there is a sharp transition zone. Obstructing neoplasm is not excluded. Willi Muñoz MD Objective Remarks GENERAL: Alert, NAD. SKIN: Warm and dry. Significant redness and tenderness at around the perianal/ buttock area. HEAD: Normocephalic. EYES: No scleral icterus. No injection or drainage. NECK: Supple, trachea midline. No JVD or lymphadenopathy. CARDIOVASCULAR: Regular rate and rhythm without murmurs, gallops, or rubs. RESPIRATORY: Breath sounds equal bilaterally. No accessory muscle use. GASTROINTESTINAL: Abdomen soft, non-tender, nondistended. MUSCULOSKELETAL: No cyanosis, or edema. BACK: Nontender without obvious deformity. No CVA tenderness. Procedures 05/26/17 central line placement 05/26/17 arterial line placement 05/27/17 colonoscopy 06/03/17 colonoscopy Date of Insertion: May 26, 2017 Line: Central Venous Catheter Side: Right Location: Subclavian A/P Problem List: (1) Bowel obstruction ICD Code: K56.609 - Unspecified intestinal obstruction, unspecified as to partial versus complete obstruction Status: Acute (2) Sepsis ICD Code: A41.9 - Sepsis, unspecified organism Status: Acute (3) DM (diabetes mellitus) ICD Code: E11.9 - Type 2 diabetes mellitus without complications Status: Chronic (4) HTN (hypertension) ICD Code: I10 - Essential (primary) hypertension Status: Chronic (5) EDGARDO (acute kidney injury) ICD Code: N17.9 - Acute kidney failure, unspecified Status: Acute Assessment and Plan Mr. 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 On arrival, patient has leukocytosis with WBC count 20.1K, lactic acid 4.7. CT abdomen pelvis shows small bowel and colonic distention with transition point at the splenic flexure. CT abdomen and pelvis also indicated possibility of neoplasm causing obstruction. Patient became hemodynamically unstable and was admitted to ICU on 05/26/2017. C. Diff was positive. - C. Diff colitis - Continue PO Vanc and PO Flagyl. - Wound care for buttock, jason-rectal skin irritation. - Colonoscopy shows large ulcers in sigmoid colol, large ulcer in the transverse colon with colonic stricture. - Repeat Sigmoidoscopy on 06/10/2017 shows probable ulcerative colitis involving left colon. Splenic flexure stricture benign-appearing. - Stool consistency is not watery. Thus, rectal tube may not be of much help. - Probable ulcerative colitis - Patient is now on prednisone 40 mg daily. - Acute kidney injury - Creatinine improved from 4.23 on 05/29/2017 --> 0.7 to on 06/09/2017. - Diabetes mellitus - Continue Levemir 10 units QHS and sliding scale insulin - May need to add pre-meal insulin if necessary. - Hypokalemia - improved K+ 3.6. - Hypomagnesemia - Mg 1.5. Replaced with 2 g of Mag sulfate IV. - Thrombocytopenia - PLT count 52K. Hematology evaluated patient. - likely due to infection. Full code. SCDs. Problem Qualifiers (1) Bowel obstruction: Qualified Codes: K56.699 - Other intestinal obstruction unspecified as to partial versus complete obstruction (2) Sepsis: Qualified Codes: A41.9 - Sepsis, unspecified organism (3) HTN (hypertension): Qualified Codes: I10 - Essential (primary) hypertension Steven Blackmon DO Jun 11, 2017 1:35 pm
--- NOTE | 2017-06-11 14:31 | PD.ONC.PN ---
Subjective Subjective Remarks Afebrile Still having 6-7 stools per day Denies abdominal pain Objective Data Date Time Temp Pulse Resp B/P (MAP) Pulse Ox O2 Delivery O2 Flow Rate FiO2 06/11/17 13:01 98.1 72 18 128/68 (88) 95 06/11/17 09:57 98.1 72 18 128/67 (87) 96 06/11/17 06:25 97.9 71 18 125/66 (85) 95 06/11/17 01:47 97.5 75 18 138/68 (91) 95 06/11/17 00:27 21 06/10/17 21:08 98.6 72 18 140/66 (90) 96 06/10/17 18:00 82 06/10/17 16:24 98.3 72 18 127/63 (84) 94 06/10/17 15:56 66 18 114/59 (77) 95 06/10/17 15:42 69 19 109/58 (75) 92 06/11/17 06/11/17 06/11/17 07:00 15:00 23:00 Output Total 375 ml Balance -375 ml Result Diagram: 06/11/17 0542 06/11/17 0542 Laboratory Results Laboratory Tests Test 06/11/17 05:42 White Blood Count 4.3 TH/MM3 Red Blood Count 3.61 MIL/MM3 Hemoglobin 10.2 GM/DL Hematocrit 31.2 % Mean Corpuscular Volume 86.3 FL Mean Corpuscular Hemoglobin 28.4 PG Mean Corpuscular Hemoglobin Concent 32.9 % Red Cell Distribution Width 16.4 % Platelet Count 99 TH/MM3 Mean Platelet Volume 8.9 FL Neutrophils (%) (Auto) 64.4 % Lymphocytes (%) (Auto) 26.0 % Monocytes (%) (Auto) 6.7 % Eosinophils (%) (Auto) 1.8 % Basophils (%) (Auto) 1.1 % Neutrophils # (Auto) 2.8 TH/MM3 Lymphocytes # (Auto) 1.1 TH/MM3 Monocytes # (Auto) 0.3 TH/MM3 Eosinophils # (Auto) 0.1 TH/MM3 Basophils # (Auto) 0.0 TH/MM3 CBC Comment AUTO DIFF Differential Comment AUTO DIFF CONFIRMED Platelet Estimate LOW Platelet Morphology Comment NORMAL Random Glucose 95 MG/DL Administered Medications Medications (Trade) Dose Ordered Sig/Tricia Route PRN Reason Start Time Stop Time Status Last Admin Dose Admin Sodium Chloride (NS Flush) 2 ml UNSCH PRN IV FLUSH FLUSH AFTER USING IV ACCESS 05/25/17 17:45 06/11/17 05:38 Sodium Chloride (NS Flush) 2 ml BID IV FLUSH 05/25/17 21:00 06/11/17 10:02 Ondansetron HCl (Zofran Inj) 4 mg Q6H PRN IVP NAUSEA OR VOMITING 05/25/17 17:45 06/05/17 22:59 Donepezil HCl (Aricept) 5 mg HS PO 05/26/17 21:00 06/10/17 22:29 Fluoxetine HCl (PROzac) 40 mg DAILY PO 05/26/17 09:00 06/11/17 10:02 Dextrose (D50w (Vial) Inj) 50 ml UNSCH PRN IV PUSH HYPOGLYCEMIA-SEE COMMENTS 05/25/17 23:00 06/11/17 05:36 Insulin Aspart (NovoLOG SUPPLEMENTAL SCALE) 1 ACHS SLIDING SCALE SQ 05/26/17 08:00 06/10/17 22:31 Gabapentin (Neurontin) 100 mg TID PO 05/26/17 18:00 06/09/17 17:22 Vancomycin HCl (VANCOMYCIN for oral use only) 500 mg QID PO 05/27/17 13:00 06/11/17 13:03 Famotidine (Pepcid) 20 mg BID PO 06/04/17 21:00 06/11/17 10:01 Acetaminophen/ Hydrocodone Bitart (Outlook 5-325 Mg) 1 tab Q6H PRN PO Pain 6-10 06/04/17 16:45 06/11/17 06:56 Insulin Detemir (Levemir Inj) 10 units HS SQ 06/09/17 21:00 06/10/17 22:30 Metronidazole (Flagyl) 500 mg Q8HR PO 06/09/17 22:00 06/16/17 21:59 06/11/17 13:03 Prednisone (Deltasone) 40 mg DAILY PO 06/11/17 12:00 06/11/17 13:15 Objective Remarks GENERAL: Older male resting in bed in no acute distress. SKIN: Warm and dry. HEAD: Normocephalic. EYES: No injection or drainage. NECK: Supple, trachea midline. CARDIOVASCULAR: Regular rate and rhythm without murmurs. RESPIRATORY: Clear anteriorly. Breathing unlabored. GASTROINTESTINAL: Abdomen soft, non-tender, nondistended. EXTREMITIES: No cyanosis, or edema. MUSCULOSKELETAL: Deconditioned. NEUROLOGICAL: No obvious focal deficit. Awake, alert, and oriented x3. Assessment/Plan Problem List: (1) Thrombocytopenia ICD Codes: D69.6 - Thrombocytopenia, unspecified Plan: 06/11: Thrombocytopenia improved. Denies blood in stool. Continue to monitor CBC. Noted steroids started by GI. --most likely due to a sepsis, infection and/or DIC. --No evidence of TTP or HUS noted. --HIT negative. --peripheral smear does not show any schistocytes. --No evidence of microangiopathic hemolytic process noted. Assessment 66y/o male with progressive thrombocytopenia. h/o COPD, Diabetes mellitus, Hypertension, Third degree AV block Attending Statement The exam, history, and the medical decision-making described in the above note were completed with the assistance of the mid-level provider. I reviewed and agree with the findings presented. I attest that I had a [id number] encounter with the patient on the same day, and personally performed and documented my assessment and findings in the medical record. Continues to have diarrhea Complaining of abdominal discomfort Patient is now on steroid Platelets improve to 99 Continue to monitor CBC We will follow Julia Triana Jun 11, 2017 14:31 Bennett Suarez MD Jun 11, 2017 23:14
[2017-06-11] MEDS: DONEPEZIL HCL 5 MG TAB PO SCH (20:40)
[2017-06-11] MEDS: INSULIN DETEMIR 100 UNITS/ML VIAL SQ SCH (20:52)
[2017-06-12 01:14] VITALS: BP 121/64; PULSE 71; RESP 18; TEMP 97.4; O2SAT 95
[2017-06-12 06:14] VITALS: BP 120/65; PULSE 74; RESP 18; TEMP 98; O2SAT 93
[2017-06-12] MEDS: metroNIDAZOLE 500 MG TAB PO SCH ×2 (06:21→13:09)
[2017-06-12 08:00] VITALS: BP 128/65; PULSE 76; RESP 16; TEMP 98.2; O2SAT 95
[2017-06-12] MEDS: INSULIN ASPART SUPPLEMENTAL SCALE SQ SCH ×2 (08:00→12:00)
[2017-06-12] MEDS: predniSONE 20 MG TAB PO SCH (08:54)
[2017-06-12] MEDS: FLUoxetine HCL 20 MG CAP PO SCH (08:55)
[2017-06-12] MEDS: VANCOMYCIN 500 MG VIAL (FOR ORAL USE ONLY) PO SCH ×2 (08:56→13:09)
[2017-06-12] MEDS: ACETAMINOPHEN/HYDROcodone 325 MG/5 MG TAB PO PRN ×2 (08:56→15:31)
[2017-06-12] MEDS: FAMOTIDINE 20 MG TAB PO SCH (08:56)
[2017-06-12] MEDS: GABAPENTIN 100 MG CAP PO SCH ×2 (09:00→12:15)
[2017-06-12] MEDS: SODIUM CHLORIDE 0.9% FLUSH 10 ML FLUSH IV FLUSH SCH (09:02)
[2017-06-12 09:54] LABS: AUTOMATED NEUTROPHIL # 4.2 TH/MM3 (1.8-7.7); BASOPHIL % 0.6 % (0.0-2.0); EOSINOPHIL % 0.2 % (0.0-4.0); HEMATOCRIT 32.6 % (39.0-51.0); HEMO FLAGS DIFF FINAL; LYMPH % 22.3 % (9.0-44.0); LYMPHOCYTE # 1.4 TH/MM3 (1.0-4.8); MEAN CELL VOLUME 87.9 FL (80.0-100.0); MEAN CORPUSCULAR HEMOGLOBIN 28.6 PG (27.0-34.0); MEAN CORPUSCULAR HGB CONC 32.5 % (32.0-36.0); MONO % 8.1 % (0.0-8.0); NEUT % 68.8 % (16.0-70.0); PLATELET COUNT 126 TH/MM3 (150-450); RED BLOOD COUNT 3.71 MIL/MM3 (4.50-5.90); RED CELL DISTRIBUTION WIDTH 16.3 % (11.6-17.2); WHITE BLOOD COUNT 6.1 TH/MM3 (4.0-11.0)
--- NOTE | 2017-06-12 11:14 | HHI.GIFU ---
Subjective Remarks Pt resting in bed comfortably. Reports decreased appetite, but states partially due to the taste of hospital food. Continued diarrhea, but reports previously he was having 6-7 episodes a day, now is only having 4 a day. Denies any blood in stool or black, tarry stools. Denies abdominal pain, nausea , vomiting. Pt does report feeling better today. (Caridad Bradford) Objective Vitals I&O Vital Signs Date Time Temp Pulse Resp B/P (MAP) Pulse Ox O2 Delivery O2 Flow Rate FiO2 06/12/17 08:00 98.2 76 16 128/65 (86) 95 06/12/17 06:14 98.0 74 18 120/65 (83) 93 06/12/17 01:14 97.4 71 18 121/64 (83) 95 06/11/17 21:35 Room Air 06/11/17 21:27 98.4 95 18 131/68 (89) 99 06/11/17 17:59 86 06/11/17 17:20 98.7 82 17 145/77 (99) 96 06/11/17 13:01 98.1 72 18 128/68 (88) 95 I/O 06/11/17 06/11/17 06/11/17 06/12/17 06/12/17 06/12/17 07:00 15:00 23:00 07:00 15:00 23:00 Output Total 375 ml 300 ml 350 ml Balance -375 ml -300 ml -350 ml Output Urine Total 375 ml 300 ml 350 ml # Bowel Movements 2 2 Laboratory Laboratory Tests Test 06/12/17 07:53 White Blood Count 6.1 Red Blood Count 3.71 Hemoglobin 10.6 Hematocrit 32.6 Mean Corpuscular Volume 87.9 Mean Corpuscular Hemoglobin 28.6 Mean Corpuscular Hemoglobin Concent 32.5 Red Cell Distribution Width 16.3 Platelet Count 126 Mean Platelet Volume 10.3 Neutrophils (%) (Auto) 68.8 Lymphocytes (%) (Auto) 22.3 Monocytes (%) (Auto) 8.1 Eosinophils (%) (Auto) 0.2 Basophils (%) (Auto) 0.6 Neutrophils # (Auto) 4.2 Lymphocytes # (Auto) 1.4 Monocytes # (Auto) 0.5 Eosinophils # (Auto) 0.0 Basophils # (Auto) 0.0 CBC Comment DIFF FINAL Differential Comment Date/Time Source Procedure Growth Status 05/29/17 00:55 Blood Peripheral Aerobic Blood Culture - Final NO GROWTH IN 5 DAYS Complete 05/29/17 00:55 Blood Peripheral Anaerobic Blood Culture - Final NO GROWTH IN 5 DAYS Complete 05/28/17 20:45 Urine Catheterized Urine Urine Culture - Final NO GROWTH IN 48 HOURS. Complete Imaging Last Impressions Foot X-Ray 06/08/17 0000 Signed Impressions: Service Date/Time: Thursday, June 08, 2017 22:45 - CONCLUSION: Healing fracture of the fifth metatarsal neck without displacement. Dmitry Balbuena MD Chest X-Ray 06/06/17 0000 Signed Impressions: Service Date/Time: Tuesday, June 06, 2017 12:10 - CONCLUSION: 1. Plain film findings characteristic of interval development of CHF with bibasilar small effusions and concomitant airspace consolidation in the left base. 2. Stable granulomatous type calcification in the right upper lung. 3. Interval removal of the nasogastric tube and right subclavian central venous catheter. 4. 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 However, there is a focal high grade stricture involving the junction between the transverse colon and descending colon at the level of the splenic flexure on the left side. Neoplastic disease is the primary consideration. John Francois MD Abdomen Ultrasound 05/27/17 0000 Signed Impressions: Service Date/Time: Saturday, May 27, 2017 16:31 - CONCLUSION: Discordant velocities in imaging findings. CT angiography may be of benefit. Delfin Mittal MD FACR Abdomen/Pelvis CT 05/25/17 1428 Signed Impressions: Service Date/Time: Thursday, May 25, 2017 16:29 - CONCLUSION: 1. Severe small bowel and colonic distention to the level of the splenic flexure where there is a sharp transition zone. Obstructing neoplasm is not excluded. Willi Muñoz MD Physical Exam HEENT: Normocephalic; atraumatic; no jaundice. CHEST: CTA CARDIAC: RRR ABDOMEN: Soft, nondistended, nontender; no hepatosplenomegaly; bowel sounds are present in all four quadrants. Extremities: Edema in legs [employer]: Awake and alert x 3. (Caridad BradfordP) Assessment and Plan Plan ASSESSMENT - Abd pain, N/V/D. CT abdomen and pelvis (05/25/17)---> Severe small bowel and colonic distention to the level of the splenic flexure where this is a sharp transition zone. Obstructing neoplasm is not excluded. S/P Colonoscopy (05/27/17)---> 1. Stricture splenic flexure-scope could not be passed, multiple ulcers in sigmoid,descending, rectum-biopsy fro splenic flexure, rectum 2. Retroflexed views revealed internal hemorrhoids 3. Retroflexed views revealed small internal hemorrhoids. Pathology splenic flexure with colonic mucosa with no significant histopathologic abnormalities, acutely and chronically inflamed granulation tissue. Pt has CDiff. ? ischemia. Unable to have CTA secondary to EDGARDO. US Abdomen (05/27/17)---> Discordant velocities in imaging findings, CTA may be of benefit. CEA 3.0, Ca 19-9 28.3. Gastrografin Enema (05/28/17)---> Limited examination. However there is a focal high grade stricture involving the junction between the transverse colon and descending colon at the level of the splenic flexure on the left side. Neoplastic disease is the primary consideration. splenic flex bx benign, rectum bx acutely and chronically inflamed granulation tissue. GS following. Colonoscopy (06/03/17)---> 1. Multiple large ulcers were found in the sigmoid colon, at the splenic flexure, and in the descending colon 2. Large ulcer was found in the transverse colon with colonic stricture scope could not pass beyond; biopsies were taken. Pathology with moderate chronic active colitis with features of ulceration, negative for glandular dysplasia or malignancy. S/P Colonoscocpy (06/10/17)----> Changes most consistent with colitis probably of the ulcerative type involving left colon Splenic flexure stricture benign appearing. Pathology pending. Asacol 800mg po TID. Pt started on Prednisone, first dose was this morning. Denies abdominal pain, nausea, vomiting. - CDiff Colitis, Epid 027. Oral Vanco, Flagyl. Diarrhea, approx 4 episodes a day, pt states smaller volume than previously and less frequent. - Severe sepsis, leukocytosis. Improved WBC 6.1. - Anemia. HH Stable 10.6/32.6 - EDGARDO. Improved. Creat. better. Nephrology following - CMP, CHF, DM, Hyperlipidemia per attending. PLAN - YUNIER - Await pathology - Oral Vanco/Flagyl - Asacol 800mg po TID - Prednisone 40mg po daily x 10 days, then 30mg po daily x 10 days, then 20mg po daily x 10 days, then 10 mg daily x 10 days - Called office to arrange FU in one week, but patient has [employer] and requires referral from PCP. Office will contact Dr. Rebolledo for referral and then call with FU appointment in one week. - Supportive care - Follow up with GI as outpatient in 1-2 weeks - Patient seen and examined by and myself and this note is written on his behalf (Caridad Bradford) Physician Comments Patient seen and examined Agree with above Continue with current supportive care Monitor labs Follow-up post discharge (Emeterio Conrad MD) Caridad Bradford Jun 12, 2017 11:14 Emeterio Conrad MD Jun 12, 2017 22:05
--- NOTE | 2017-06-12 11:16 | PD.ONC.PN ---
Subjective Subjective Remarks Afebrile overnight. Patient resting in bed. He stated he was cold, so I got him a blanket. Otherwise, no complaints. No bleeding. Objective Data Date Time Temp Pulse Resp B/P (MAP) Pulse Ox O2 Delivery O2 Flow Rate FiO2 06/12/17 08:00 98.2 76 16 128/65 (86) 95 06/12/17 06:14 98.0 74 18 120/65 (83) 93 06/12/17 01:14 97.4 71 18 121/64 (83) 95 06/11/17 21:35 Room Air 06/11/17 21:27 98.4 95 18 131/68 (89) 99 06/11/17 17:59 86 06/11/17 17:20 98.7 82 17 145/77 (99) 96 06/11/17 13:01 98.1 72 18 128/68 (88) 95 06/12/17 06/12/17 06/12/17 07:00 15:00 23:00 Output Total 350 ml Balance -350 ml Result Diagram: 06/12/17 0753 06/11/17 0542 Laboratory Results Laboratory Tests Test 06/12/17 07:53 White Blood Count 6.1 TH/MM3 Red Blood Count 3.71 MIL/MM3 Hemoglobin 10.6 GM/DL Hematocrit 32.6 % Mean Corpuscular Volume 87.9 FL Mean Corpuscular Hemoglobin 28.6 PG Mean Corpuscular Hemoglobin Concent 32.5 % Red Cell Distribution Width 16.3 % Platelet Count 126 TH/MM3 Mean Platelet Volume 10.3 FL Neutrophils (%) (Auto) 68.8 % Lymphocytes (%) (Auto) 22.3 % Monocytes (%) (Auto) 8.1 % Eosinophils (%) (Auto) 0.2 % Basophils (%) (Auto) 0.6 % Neutrophils # (Auto) 4.2 TH/MM3 Lymphocytes # (Auto) 1.4 TH/MM3 Monocytes # (Auto) 0.5 TH/MM3 Eosinophils # (Auto) 0.0 TH/MM3 Basophils # (Auto) 0.0 TH/MM3 CBC Comment DIFF FINAL Differential Comment Administered Medications Medications (Trade) Dose Ordered Sig/Tricia Route PRN Reason Start Time Stop Time Status Last Admin Dose Admin Sodium Chloride (NS Flush) 2 ml UNSCH PRN IV FLUSH FLUSH AFTER USING IV ACCESS 05/25/17 17:45 06/11/17 05:38 Sodium Chloride (NS Flush) 2 ml BID IV FLUSH 05/25/17 21:00 06/12/17 09:02 Ondansetron HCl (Zofran Inj) 4 mg Q6H PRN IVP NAUSEA OR VOMITING 05/25/17 17:45 06/05/17 22:59 Donepezil HCl (Aricept) 5 mg HS PO 05/26/17 21:00 06/11/17 20:40 Fluoxetine HCl (PROzac) 40 mg DAILY PO 05/26/17 09:00 06/12/17 08:55 Dextrose (D50w (Vial) Inj) 50 ml UNSCH PRN IV PUSH HYPOGLYCEMIA-SEE COMMENTS 05/25/17 23:00 06/11/17 05:36 Insulin Aspart (NovoLOG SUPPLEMENTAL SCALE) 1 ACHS SLIDING SCALE SQ 05/26/17 08:00 06/12/17 08:00 Gabapentin (Neurontin) 100 mg TID PO 05/26/17 18:00 06/09/17 17:22 Vancomycin HCl (VANCOMYCIN for oral use only) 500 mg QID PO 05/27/17 13:00 06/12/17 08:56 Famotidine (Pepcid) 20 mg BID PO 06/04/17 21:00 06/12/17 08:56 Acetaminophen/ Hydrocodone Bitart ([place] 5-325 Mg) 1 tab Q6H PRN PO Pain 6-10 06/04/17 16:45 06/12/17 08:56 Insulin Detemir (Levemir Inj) 10 units HS SQ 06/09/17 21:00 06/11/17 20:52 Metronidazole (Flagyl) 500 mg Q8HR PO 06/09/17 22:00 06/16/17 21:59 06/12/17 06:21 Prednisone (Deltasone) 40 mg DAILY PO 06/11/17 12:00 06/12/17 08:54 Objective Remarks GENERAL: Middle aged male lying in bed in nad. SKIN: Warm and dry. HEAD: Normocephalic. EYES: No injection or drainage. NECK: Supple, trachea midline. CARDIOVASCULAR: Regular rate and rhythm RESPIRATORY: Breath sounds equal bilaterally. No accessory muscle use. GASTROINTESTINAL: Abdomen soft, non-tender, nondistended. EXTREMITIES: No cyanosis NEUROLOGICAL: awake and alert, normal speech. moving all extremities. Assessment/Plan Problem List: (1) Thrombocytopenia ICD Codes: D69.6 - Thrombocytopenia, unspecified Plan: 06/12: platelets continuing to rise. monitor CBC --most likely due to a sepsis, infection and/or DIC. --No evidence of TTP or HUS noted. --HIT negative. --peripheral smear does not show any schistocytes. --No evidence of microangiopathic hemolytic process noted. Assessment 66y/o male with progressive thrombocytopenia. h/o COPD, Diabetes mellitus, Hypertension, Third degree AV block Attending Statement The exam, history, and the medical decision-making described in the above note were completed with the assistance of the mid-level provider. I reviewed and agree with the findings presented. I attest that I had a [id number] encounter with the patient on the same day, and personally performed and documented my assessment and findings in the medical record. No new complaints Wants to go home Platelets are coming up nicely Okay to discharge from my standpoint Sign off Available Christal Hummel Jun 12, 2017 11:16 Bennett Suarez MD Jun 12, 2017 18:09
[2017-06-12 12:00] VITALS: BP 122/58; PULSE 70; RESP 16; TEMP 98.2; O2SAT 95
--- NOTE | 2017-06-12 12:40 | HHI.PR ---
Subjective Remarks Follow up for C. difficile colitis, colonic stricture. Patient is currently doing well. He reports much improvement of his symptoms. He is still having 4- 5 bowel movements. Stool is not watery but soft. No fever or chills. Tolerating diet well. Objective Vitals Vital Signs Date Time Temp Pulse Resp B/P (MAP) Pulse Ox O2 Delivery O2 Flow Rate FiO2 06/12/17 08:00 98.2 76 16 128/65 (86) 95 06/12/17 06:14 98.0 74 18 120/65 (83) 93 06/12/17 01:14 97.4 71 18 121/64 (83) 95 06/11/17 21:35 Room Air 06/11/17 21:27 98.4 95 18 131/68 (89) 99 06/11/17 17:59 86 06/11/17 17:20 98.7 82 17 145/77 (99) 96 06/11/17 13:01 98.1 72 18 128/68 (88) 95 I/O 06/11/17 06/11/17 06/11/17 06/12/17 06/12/17 06/12/17 07:00 15:00 23:00 07:00 15:00 23:00 Output Total 375 ml 300 ml 350 ml Balance -375 ml -300 ml -350 ml Output Urine Total 375 ml 300 ml 350 ml # Bowel Movements 2 2 Result Diagram: 06/12/17 0753 06/11/17 0542 Imaging Last Impressions Foot X-Ray 06/08/17 0000 Signed Impressions: Service Date/Time: Thursday, June 08, 2017 22:45 - CONCLUSION: Healing fracture of the fifth metatarsal neck without displacement. Dmitry Balbuena MD Chest X-Ray 06/06/17 0000 Signed Impressions: Service Date/Time: Tuesday, June 06, 2017 12:10 - CONCLUSION: 1. Plain film findings characteristic of interval development of CHF with bibasilar small effusions and concomitant airspace consolidation in the left base. 2. Stable granulomatous type calcification in the right upper lung. 3. Interval removal of the nasogastric tube and right subclavian central venous catheter. 4. 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 However, there is a focal high grade stricture involving the junction between the transverse colon and descending colon at the level of the splenic flexure on the left side. Neoplastic disease is the primary consideration. John Francois MD Abdomen Ultrasound 05/27/17 0000 Signed Impressions: Service Date/Time: Saturday, May 27, 2017 16:31 - CONCLUSION: Discordant velocities in imaging findings. CT angiography may be of benefit. Delfin Mittal MD FACR Abdomen/Pelvis CT 05/25/17 1428 Signed Impressions: Service Date/Time: Thursday, May 25, 2017 16:29 - CONCLUSION: 1. Severe small bowel and colonic distention to the level of the splenic flexure where there is a sharp transition zone. Obstructing neoplasm is not excluded. Willi Muñoz MD Objective Remarks GENERAL: Alert, NAD. SKIN: Warm and dry. Significant redness and tenderness at around the perianal/ buttock area. HEAD: Normocephalic. EYES: No scleral icterus. No injection or drainage. NECK: Supple, trachea midline. No JVD or lymphadenopathy. CARDIOVASCULAR: Regular rate and rhythm without murmurs, gallops, or rubs. RESPIRATORY: Breath sounds equal bilaterally. No accessory muscle use. GASTROINTESTINAL: Abdomen soft, non-tender, nondistended. MUSCULOSKELETAL: No cyanosis, or edema. BACK: Nontender without obvious deformity. No CVA tenderness. Procedures 05/26/17 central line placement 05/26/17 arterial line placement 05/27/17 colonoscopy 06/03/17 colonoscopy Date of Insertion: May 26, 2017 Line: Central Venous Catheter Side: Right Location: Subclavian A/P Problem List: (1) Bowel obstruction ICD Code: K56.609 - Unspecified intestinal obstruction, unspecified as to partial versus complete obstruction Status: Acute (2) Sepsis ICD Code: A41.9 - Sepsis, unspecified organism Status: Acute (3) DM (diabetes mellitus) ICD Code: E11.9 - Type 2 diabetes mellitus without complications Status: Chronic (4) HTN (hypertension) ICD Code: I10 - Essential (primary) hypertension Status: Chronic (5) EDGARDO (acute kidney injury) ICD Code: N17.9 - Acute kidney failure, unspecified Status: Acute Assessment and Plan Mr. 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 On arrival, patient has leukocytosis with WBC count 20.1K, lactic acid 4.7. CT abdomen pelvis shows small bowel and colonic distention with transition point at the splenic flexure. CT abdomen and pelvis also indicated possibility of neoplasm causing obstruction. Patient became hemodynamically unstable and was admitted to ICU on 05/26/2017. C. Diff was positive. - C. Diff colitis - Continue PO Vanc and PO Flagyl. - Wound care for buttock, jason-rectal skin irritation. - Colonoscopy shows large ulcers in sigmoid colol, large ulcer in the transverse colon with colonic stricture. - Repeat Sigmoidoscopy on 06/10/2017 shows probable ulcerative colitis involving left colon. Splenic flexure stricture benign-appearing. - Stool consistency is not watery. - Discussed with infectious disease. Upon discharge we'll continue tapering dose of vancomycin as follows: = Vancomycin by mouth 250 mg 4 times a day for 7 days, 125 mg 4 times a day for 7 days, 125 mg 3 times a day for 7 days, 125 mg twice a day for 7 days, 125 mg daily for 7 days 125 mg every other day for 7 days. - Probable ulcerative colitis - Patient is now on prednisone 40 mg daily. - Mesalamine 800mg Q8hrs. - Acute kidney injury - Creatinine improved from 4.23 on 05/29/2017 --> 0.7 to on 06/09/2017. - Diabetes mellitus - Continue Levemir 12 units QHS and sliding scale insulin - And aspart 5 units 3 times a day before meals. - Hypokalemia - improved K+ 3.6. - Hypomagnesemia - Mg 1.5. Replaced with 2 g of Mag sulfate IV. - Thrombocytopenia - PLT count 52K. Hematology evaluated patient. - likely due to infection. Full code. SCDs. Discussed with infectious disease as well as case management. Patient can be discharged if arrangements are made. Problem Qualifiers (1) Bowel obstruction: Qualified Codes: K56.699 - Other intestinal obstruction unspecified as to partial versus complete obstruction (2) Sepsis: Qualified Codes: A41.9 - Sepsis, unspecified organism (3) HTN (hypertension): Qualified Codes: I10 - Essential (primary) hypertension Steven Blackmon DO Jun 12, 2017 12:40 pm
[2017-06-12] MEDS ORDERED: GABA100C4 PO (12:52)
[2017-06-12] MEDS ORDERED: FAMO20TA2 PO (12:52)
[2017-06-12] MEDS ORDERED: HYDR-3516 PO (12:52)
[2017-06-12] MEDS ORDERED: METR-1 PO (12:52)
[2017-06-12] MEDS ORDERED: NOVOLOGP2 SQ (12:52)
[2017-06-12] MEDS ORDERED: LEVEMIR SQ (12:52)
[2017-06-12] MEDS ORDERED: VANC125C3 PO (12:55)
[2017-06-12] MEDS ORDERED: VANC250C2 PO (12:55)
[2017-06-12] MEDS ORDERED: MESALAMINE HD 800 MG DELAYED RELEASE TAB PO SCH (14:00)
[2017-06-12 14:33] VITALS: PULSE 72
[2017-06-12] MEDS ORDERED: PRED20 PO (15:08)
[2017-06-12] MEDS ORDERED: MESA1TAB2 PO (15:13)
[2017-06-12] MEDS ORDERED: INSULIN ASPART 1,000 UNITS/10 ML VIAL SQ SCH (17:00)
[2017-06-12] MEDS ORDERED: INSULIN DETEMIR 100 UNITS/ML VIAL SQ SCH (21:00)
--- NOTE | 2017-06-15 14:34 | PQ ---
Physician Query Response Document PATIENT: CAROLANN ORNELAS : 1950 ADMIT DATE: 05/25/2017 5:39 PM DISCH DATE: 06/12/2017 3:34 PM RESPONDING PROVIDER #: latonia QUERY TEXT: Diabetes Type Diabetes is documented in the Medical Record. Please specify the type Such as: -- Type I diabetes mellitus -- Type II diabetes mellitus -- Diabetes due to drug or chemicals -- Diabetes due to an underlying medical condition -- Other, please specify If you have any additional questions/comments and/or concerns, please do not hesitate to reach out to the CDI/Coding Hotline, Ext. [phone]. The patient's Clinical Indicators include: H History of Present Illness documents as Type I. Under Assessment and Plan - documented as Type 2. Initial ED report documents: Patient is an insulin dependent diabetic. No Discharge Summary at time of chart review, but last Progress Note dated 06/12/17 lists both Type I (Assessment) and Type 2 diabetes (Problem List) as diagnoses. Progress Notes go back and forth between Type 1, Type 2 and Other Specified Diabetes Mellitus. Query created by: Berna Mcgregor on 06/15/2017 12:48 PM RESPONSE TEXT: Diabetes mellitus type II. Electronically signed by: Jose Blackmon DO 06/15/2017 2:30 PM
== END 2017-06-12 15:34 | DRG 871 ==
LOC: NEPE 13:37 → NEDA 17:39 → N07A 19:19 → N03B 05-26 12:31 → N05B 06-05 17:57
PROVIDERS: ADMIT Hospitalist; ATTEND Hospitalist
PROC: 05H533Z Insertion of Infusion Device into Right Subclavian Vein, Percutaneous Approach (ICD-10-PCS; principal; 2017-05-26)
PROC: 03HY32Z Insertion of Monitoring Device into Upper Artery, Percutaneous Approach (ICD-10-PCS; 2017-05-26)
PROC: 0DJD8ZZ Inspection of Lower Intestinal Tract, Via Natural or Artificial Opening Endoscopic (ICD-10-PCS; 2017-05-27)
PROC: 0DBL8ZX Excision of Transverse Colon, Via Natural or Artificial Opening Endoscopic, Diagnostic (ICD-10-PCS; 2017-06-03)
PROC: 0DBM8ZX Excision of Descending Colon, Via Natural or Artificial Opening Endoscopic, Diagnostic (ICD-10-PCS; 2017-06-10)
PROC: 0DBL8ZX Excision of Transverse Colon, Via Natural or Artificial Opening Endoscopic, Diagnostic (ICD-10-PCS; 2017-06-10)
PROC: 0DBN8ZX Excision of Sigmoid Colon, Via Natural or Artificial Opening Endoscopic, Diagnostic (ICD-10-PCS; 2017-06-10)
PROC: 0DBP8ZX Excision of Rectum, Via Natural or Artificial Opening Endoscopic, Diagnostic (ICD-10-PCS; 2017-06-10)
DX: A41.9 Sepsis, unspecified organism (principal); N17.0 Acute kidney failure with tubular necrosis; R65.21 Severe sepsis with septic shock; I44.2 Atrioventricular block, complete; A04.72 Enterocolitis due to Clostridium difficile, not specified as recurrent; K56.699 Other intestinal obstruction unspecified as to partial versus complete obstruction; E87.2 Acidosis; N18.3 Chronic kidney disease, stage 3 (moderate); K51.90 Ulcerative colitis, unspecified, without complications; I42.9 Cardiomyopathy, unspecified; I50.22 Chronic systolic (congestive) heart failure; I13.0 Hypertensive heart and chronic kidney disease with heart failure and stage 1 through stage 4 chronic kidney disease, or unspecified chronic kidney disease; E83.42 Hypomagnesemia; D69.6 Thrombocytopenia, unspecified; Z79.4 Long term (current) use of insulin; Z95.0 Presence of cardiac pacemaker; E87.6 Hypokalemia; F03.90 Unspecified dementia, unspecified severity, without behavioral disturbance, psychotic disturbance, mood disturbance, and anxiety; E86.0 Dehydration; I25.2 Old myocardial infarction; E78.5 Hyperlipidemia, unspecified; E11.42 Type 2 diabetes mellitus with diabetic polyneuropathy; E11.65 Type 2 diabetes mellitus with hyperglycemia; F17.210 Nicotine dependence, cigarettes, uncomplicated; R06.89 Other abnormalities of breathing; I25.10 Atherosclerotic heart disease of native coronary artery without angina pectoris; L89.619 Pressure ulcer of right heel, unspecified stage; F12.90 Cannabis use, unspecified, uncomplicated; J44.9 Chronic obstructive pulmonary disease, unspecified; L89.612 Pressure ulcer of right heel, stage 2; E87.5 Hyperkalemia; D64.9 Anemia, unspecified; E83.39 Other disorders of phosphorus metabolism
CPT/HCPCS: 36556; 71010; 73630; 74177; 74270; 80048; 80053; 80076; 81001; 82010; 82378; 82805; 82947; 82948; 83605; 83615; 83690; 83735; 83880; 83930; 83935; 84100; 84132; 84133; 84134; 84145; 84155; 84300; 84484; 85007; 85025; 85027; 85060; 85384; 85610; 85730; 86022; 86301; 87015; 87040; 87076; 87086; 87185; 87205; 87493; 87641; 88305; 93005; 93975; 94150; 96361; 96365; 96366; 96375; J0610; J0692; J1644; J1815; J2250; J2370; J2405; J2543; J3010; J3370; J3475; J3480; J7030; J7040; J7050; J7060; J7512; Q9963; Q9967

== ENCOUNTER 2017-06-22 00:26 | Inpatient (IN) | payer OTHER, MEDICARE ==
[~2017-06-22] VITALS: Ht 182.9 cm; Wt 78.0 kg
[2017-06-22] VITALS (18 sets, daily range): BP systolic 76–117; BP diastolic 39–67; PULSE 95–116; RESP 16–26; TEMP 98.7–103; O2SAT 93–99
[~2017-06-22 00:26] MED LIST changes: +FAMO20TA2 PO; +GABA100C4 PO; +HYDR-3516 PO; +MESA1TAB2 PO; +METR-1 PO; +NOVOLOGP2 SQ; +PRED20 PO; -PROT40TA PO; +VANC125C3 PO; +VANC250C2 PO
[2017-06-22] MEDS ORDERED: IOHEXOL 350 MG/ML 10 ML VIAL (for RAD DIAG) IVCONTRAST ONE (00:27)
[2017-06-22] MEDS ORDERED: PIPERACIL-TAZO 4.5 GM PREMIX 100 ML IV STA (00:36)
[2017-06-22] MEDS ORDERED: VANCOMYCIN INJ 1,000 MG in SODIUM CHLOR 0.9% 250 ML INJ 250 ML IV STA (00:36)
[2017-06-22] MEDS ORDERED: SODIUM CHLOR 0.9% 1000 ML INJ 1,000 ML IV ONE ×4 (00:36→04:43)
[2017-06-22] MEDS ORDERED: ACETAMINOPHEN 325 MG TAB PO ONE (00:45)
--- NOTE | 2017-06-22 01:24 | RADRPT ---
EXAM DATE/TIME: 06/22/2017 00:48 [facility] COMPARISON: CHEST SINGLE AP, June 06, 2017, 12:10. INDICATIONS : Fever, possible sepsis. MEDICAL HISTORY : Chronic obstructive pulmonary disease. Hypercholesterolemia. Diabetes mellitus type II. CAD SURGICAL HISTORY : Pacemaker. ENCOUNTER: Initial ACUITY: 1 day PAIN SCORE: 0/10 LOCATION: Bilateral chest FINDINGS: The heart size is normal. There is a pacing device seen in the left upper chest. There is patchy foca l densities seen in the mid and lower left lung. There is prominence of the left hilar region. There is a calcified granuloma in the right upper lung. Right lung is otherwise grossly clear. Compared to the prior exam there is improved aeration seen bilaterally. There is degenerative change with spurrin g seen at the inferior right glenohumeral joint. CONCLUSION: 1. Improved aeration and improving consolidation bilaterally. 2. Residual focal areas of bronchopneumonia or masses seen in the left mid and lower lung. Continued followup is recommended. 3. Calcified granuloma in the right upper lung. Forrest Doshi MD on June 22, 2017 at 1:19 Board Certified Radiologist. This report was verified electronically.
[2017-06-22 01:26] LABS: ALT (GPT) 20 U/L (12-78); ANION GAP 10 MEQ/L (5-15); AST (GOT) 12 U/L (15-37); BICARBONATE 27.4 MEQ/L (21.0-32.0); BLOOD UREA NITROGEN 26 MG/DL (7-18); CHLORIDE 102 MEQ/L (98-107); GLOMERULAR FILTRATION RATE 75 ML/MIN (>89); POTASSIUM 4.1 MEQ/L (3.5-5.1); SODIUM (NA) 139 MEQ/L (136-145)
[2017-06-22 01:30] LABS: ALKALINE PHOSPHATASE 339 U/L (45-117); APTT (PATIENT) 26.4 SEC (24.3-30.1); AUTOMATED NEUTROPHIL # 9.8 TH/MM3 (1.8-7.7); BASOPHIL % 0.1 % (0.0-2.0); EOSINOPHIL % 0.1 % (0.0-4.0); HEMATOCRIT 34.9 % (39.0-51.0); HEMO FLAGS DIFF FINAL; LYMPH % 4.2 % (9.0-44.0); LYMPHOCYTE # 0.4 TH/MM3 (1.0-4.8); MEAN CELL VOLUME 86.1 FL (80.0-100.0); MEAN CORPUSCULAR HEMOGLOBIN 29.1 PG (27.0-34.0); MEAN CORPUSCULAR HGB CONC 33.7 % (32.0-36.0); NEUT % 92.6 % (16.0-70.0); PLATELET COUNT 153 TH/MM3 (150-450); PROTHROMBIN TIME - PATIENT 11.6 SEC (9.8-11.6); RED BLOOD COUNT 4.05 MIL/MM3 (4.50-5.90); TOTAL BILIRUBIN ADULT 0.3 MG/DL (0.2-1.0); WHITE BLOOD COUNT 10.5 TH/MM3 (4.0-11.0)
[2017-06-22] MEDS ORDERED: MILKSUS PO (01:33)
[2017-06-22] MEDS ORDERED: MULT1TAB46 (01:48)
[2017-06-22] MEDS ORDERED: CALC1TAB12 PO (01:48)
[2017-06-22] MEDS ORDERED: VITA250C3 CHEW (01:48)
[2017-06-22] MEDS ORDERED: NOVORP2 SQ (01:48)
[2017-06-22] MEDS ORDERED: DULC10SU3 RECTAL (01:48)
[2017-06-22] MEDS ORDERED: LEVEMIR SQ ×2 (01:48)
[2017-06-22] MEDS ORDERED: CITRSOL4 PO (01:48)
[2017-06-22] MEDS ORDERED: NON-325T2 PO (01:48)
[2017-06-22] MEDS ORDERED: SODIENE9 (01:48)
[2017-06-22 03:00] LABS: LACTIC ACID GHOST NOT REPORTABLE
--- NOTE | 2017-06-22 03:14 | RADRPT ---
EXAM DATE/TIME: 06/22/2017 02:43 [facility] COMPARISON: GASTROGRAFIN ENEMA, May 28, 2017, 15:14. CT ABDOMEN & PELVIS W CONTRAST, May 25, 2017, 16:2 9. INDICATIONS : Abdomen pain. IV CONTRAST: 97 cc Omnipaque 350 (iohexol) IV ORAL CONTRAST: No oral contrast ingested. RADIATION DOSE: 6.62 CTDIvol (mGy) MEDICAL HISTORY : Cardiovascular disease. Hypertension. Diabetes mellitus type 2. SURGICAL HISTORY : Pacemaker. ENCOUNTER: Initial ACUITY: 1 day PAIN SCALE: 7/10 LOCATION: Bilateral abdomen TECHNIQUE: Volumetric scanning of the abdomen and pelvis was performed. Using automated exposure control and ad justment of the mA and/or kV according to patient size, radiation dose was kept as low as reasonably achievable to obtain optimal diagnostic quality images. DICOM format image data is available electro nically for review and comparison. FINDINGS: LOWER LUNGS: There is a moderate left pleural effusion and a mild right pleural effusion with accompanying areas o f atelectasis at the lung bases and left lingula. The patient has a pacing device in place. LIVER: There are several small subcentimeter hypodensities most closely resembling cysts although they are n onspecific. SPLEEN: Normal size without lesion. PANCREAS: Within normal limits. KIDNEYS: Normal in size and shape. There is no solid mass, stone or hydronephrosis. There are several cysts i n the left kidney with the largest one measuring 1.1 cm at the posterior superior left kidney. There is a tiny cyst at the inferior lateral right kidney. ADRENAL GLANDS: Within normal limits. VASCULAR: There is no aortic aneurysm. There are scattered calcifications throughout the arterial system. BOWEL/MESENTERY: There is dilatation of the small bowel and ascending and transverse portions of the colon. There is a transition point with narrowing of the distal transverse colon in the splenic flexure region. The de scending colon is collapsed. There is mild thickening of the cecum. There is a mild to moderate amoun t of ascites seen throughout the peritoneal cavity. There is an NG tube in place with the tip in the stomach. ABDOMINAL WALL: Within normal limits. RETROPERITONEUM: There is no lymphadenopathy. BLADDER: No wall thickening or mass. REPRODUCTIVE: Within normal limits. INGUINAL: There is no lymphadenopathy or hernia. MUSCULOSKELETAL: Within normal limits for patient age. CONCLUSION: 1. Bowel obstruction with an area of transition and narrowing in the distal transverse colon in the s plenic flexure region. 2. Mild to moderate ascites. 3. Small subcentimeter hypodensities in the liver. These may represent cysts although they are nonspe cific. 4. Bilateral pleural effusions being worse on the left. There are accompanying areas of atelectasis o r consolidation the lung bases. Forrest Doshi MD on June 22, 2017 at 3:02 Board Certified Radiologist. This report was verified electronically.
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
[2017-06-22 04:41] LABS: BACTERIA, URINE RARE /hpf; BLOOD, URINE NEG (NEG); COMMENT (UR) CATH-CULTURE IND; CULTURE IF INDICATED CATH CULTURE IND; GLUCOSE,URINE NEG (NEG); GRANULAR CAST, URINE 1 /lpf; HYALINE CAST, URINE 54 /lpf (RARE); KETONE, URINE NEG (NEG); MUCUS URINE FEW /lpf (OCC); NITRITE,URINE NEG (NEG); PH, URINE 5.5 (5.0-8.5); SQUAMOUS EPITHELIAL CELL URINE <1 /hpf (0-5); URINE COLOR YELLOW (YELLW/STRAW)
[2017-06-22] MEDS ORDERED: SODIUM CHLOR 0.9% 1000 ML INJ 100 ML IV ONE (04:43)
[2017-06-22] MEDS ORDERED: MISCELLANEOUS NURSING INFORMATION XX SCH (04:45)
[2017-06-22] MEDS ORDERED: CHLORHEXIDINE GLUCONATE 2 % 1 PACK (2 CLOTHS) TOP PRN (04:45)
[2017-06-22] MEDS ORDERED: RESP: ALBUTEROL 2.5 MG/IPRATROPIUM 0.5 MG NEB (PRN) INH (04:45)
[2017-06-22] MEDS ORDERED: SODIUM CHLORIDE 0.9% FLUSH 10 ML FLUSH IV FLUSH PRN (04:45)
[2017-06-22] MEDS ORDERED: Vancomycin Consult Pharmacy 1 EA OTHER SCH (04:45)
[2017-06-22] MEDS ORDERED: VANCOMYCIN INJ 1,000 MG in SODIUM CHLOR 0.9% 250 ML INJ 250 ML IV SCH (04:45)
--- NOTE | 2017-06-22 04:57 | HHI.HP ---
[facility] Service Critical Care Medicine Primary Care Physician Elder Rebolledo MD Admission Diagnosis Sepsis, bowel obstruction Diagnosis: Travel History International Travel<30 Days: No Contact w/Intl Traveler <30 Da: No Traveled to Known Affected Are: No History of Present Illness 66-year-old male currently residing at the rehabilitation facility comes in due to fever with low blood pressure, abdominal pain and vomiting. He has history of bowel obstruction in the past. He also was diagnosed with C. difficile. Per patient his abdominal pain never got any better since being in the hospital about a month ago. However, he does say that it has gotten worse recently. He vomited today. He says he continues to have diarrhea. He was found to be febrile. He denies chest pain or shortness of breath. He was admitted in the end of April for bowel obstruction and presented in similar fashion at that time. Review of Systems Constitutional: COMPLAINS OF: Diaphoretic episodes, Fatigue, Fever, Change in appetite, DENIES: Weight gain, Weight loss, Chills, Dizziness, Night Sweats Endocrine: DENIES: Heat/cold intolerance, Polydipsia, Polyuria, Polyphagia Eyes: DENIES: Blurred vision, Diplopia, Eye inflammation, Eye pain, Vision loss , Photosensitivity, Double Vision Ears, nose, mouth, throat: DENIES: Tinnitus, Hearing loss, Vertigo, Nasal discharge, Oral lesions, Throat pain, Hoarseness, Ear Pain, Running Nose, Epistaxis, Sinus Pain, Toothache, Odynophagia Respiratory: DENIES: Apneas, Cough, Snoring, Wheezing, Hemoptysis, Sputum production, Shortness of breath Cardiovascular: DENIES: Chest pain, Palpitations, Syncope, Dyspnea on Exertion , PND, Lower Extremity Edema, Orthopnea, Claudication Gastrointestinal: COMPLAINS OF: Abdominal pain, Diarrhea, Nausea, Anorexia, DENIES: Black stools, Bloody stools, Constipation, Vomiting, Difficulty Swallowing Genitourinary: DENIES: Sexual dysfunction, Urinary frequency, Urinary incontinence, Urgency, Hematuria, Dysuria, Nocturia, Penile Discharge, Testicular Pain, Testicular Swelling Musculoskeletal: DENIES: Joint pain, Muscle aches, Stiffness, Joint Swelling, Back pain, Neck pain Integumentary: DENIES: Abnormal pigmentation, Nail changes, Pruritus, Rash Hematologic/lymphatic: DENIES: Bruising, Lymphadenopathy Immunologic/allergic: DENIES: Eczema, Urticaria Neurologic: DENIES: Abnormal gait, Headache, Localized weakness, Paresthesias, Seizures, Speech Problems, Tremor, Poor Balance Psychiatric: DENIES: Anxiety, Confusion, Mood changes, Depression, Hallucinations, Agitation, Suicidal Ideation, Homicidal Ideation, Delusions Past Family Social History Allergies: Coded Allergies: No Known Allergies (Unverified Adverse Reaction, Unknown, 05/25/17) Past Medical History COPD Diabetes mellitus Hypertension 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 difficile colitis Ulcerative colitis Past Surgical History S/P Colonoscopy (05/27/17) - Stricture splenic flexure-scope could not be passed , multiple ulcers in sigmoid,descending, rectum-biopsy fro splenic flexure, rectum 2. Retroflexed views revealed internal hemorrhoids 3. Retroflexed views revealed small internal hemorrhoids. Pathology splenic flexure with colonic mucosa with no significant histopathologic abnormalities, acutely and chronically inflamed granulation tissue. Reported Medications Reported Meds & Active Scripts Active Mesalamine DR (Mesalamine) 800 Mg Tab 800 Mg PO Q8HR Prednisone 20 Mg Tab 20 Mg PO DIRECTED Take 2 tabs (40mg) by mouth daily x 9 days, then take 1.5 tabs (30mg) x 10 days, then take 1 tab (20mg) x 10 days, then take 1/2 tab x 10 days then d/c. Famotidine 20 Mg Tab 20 Mg PO BID Gabapentin 100 Mg Cap 100 Mg PO TID Hydrocodone-Acetamin 5-325 mg (Hydrocodone/Acetaminophen) 5 Mg-325 Mg Tablet 1 Tab PO Q6H PRN Reported Levemir Inj (Insulin Detemir) 1,000 unit/ 10 ML Vial 20 Units SQ AM Do not mix with any other Insulin. Levemir Inj (Insulin Detemir) 1,000 unit/ 10 ML Vial 20 Units SQ HS Do not mix with any other Insulin. Vitamin C (Ascorbic Acid) 250 Mg Chew 500 Mg CHEW BID Multi Vitamin Daily (Multiple Vitamin) 1 Tab Tab Calcium 500 +D (Calcium Carbonate-Cholecalciferol) 500-400 Mg-Unit Tab 1 Tab PO DAILY Novolin R Inj (Insulin Human Regular) 1,000 Unit/10 Ml Vial 0 SQ DIRECTED Sliding Scale As Directed. Non-Aspirin (Acetaminophen) 325 Mg Tab 325 Mg PO Q4-6H PRN Citroma Liq (Magnesium Citrate) 300 Ml Liq 300 Ml PO DIRECTED Dulcolax Supp (Bisacodyl) 10 Mg Supp 10 Mg RECTAL DAILY PRN Enema Cpcvc-Dc-Aif (Sodium Phosphates) 19 Gram-7 Gram/118 Ml Heydi Milk of Magnesia Liq (Magnesium Hydroxide) 400 Mg/5 Ml Susp 10 Ml PO Q8HR PRN Aricept (Donepezil) 23 Mg Tab 5 Mg PO HS Do not split, crushed or chewed. Carvedilol 3.125 Mg Tab 3.125 Mg PO BID Lisinopril 10 Mg Tab 2.5 Mg PO DAILY Fluoxetine (Fluoxetine HCl) 40 Mg Cap 40 Cap PO DAILY Active Ordered Medications Current Medications Medications (Trade) Dose Ordered Sig/Tricia Route PRN Reason Start Time Stop Time Status Last Admin Dose Admin Fluoxetine HCl (PROzac) 1,600 mg DAILY PO 06/22/17 09:00 UNV Gabapentin (Neurontin) 100 mg TID PO 06/22/17 09:00 Mesalamine (Asacol Hd Dr) 800 mg Q8HR PO 06/22/17 06:00 Ascorbic Acid (Vitamin C) 500 mg BID PO 06/22/17 09:00 Donepezil HCl (Aricept) 5 mg HS PO 06/22/17 21:00 Family History Father, mother, brother with heart disease. Social History Smokes one pack a day. Drinks alcohol socially. Physical Exam Vital Signs Vital Signs Date Time Temp Pulse Resp B/P (MAP) Pulse Ox O2 Delivery O2 Flow Rate FiO2 06/22/17 03:29 97 16 90/51 (64) 93 Nasal Cannula 2.00 06/22/17 02:30 103 16 90/52 (65) 95 Room Air 06/22/17 01:59 99 18 80/43 (55) 93 Room Air 06/22/17 01:09 96 20 89/52 (64) 99 Nasal Cannula 3.00 06/22/17 00:42 99 Nasal Cannula 4.00 06/22/17 00:32 103.0 116 23 81/50 (60) 95 Physical Exam GENERAL: Emaciated critically ill-appearing gentleman alert and oriented SKIN: Warm and dry. Poor skin turgor HEAD: Atraumatic. Normocephalic. EYES: Pupils equal and round. No scleral icterus. No injection or drainage. ENT: No nasal bleeding or discharge. Mucous membranes dry NECK: Trachea midline. No JVD. CARDIOVASCULAR: Normal rate, regular rhythm. RESPIRATORY: No accessory muscle use. Clear to auscultation. Breath sounds equal bilaterally. GASTROINTESTINAL: Abdomen soft, non-tender, nondistended. No guarding. MUSCULOSKELETAL: Extremities without clubbing, cyanosis, or edema. No obvious deformities. NEUROLOGICAL: Awake and alert. RASS 0. No gross focal/sensory deficits. Follows commands in all 4 extremities. Laboratory Laboratory Tests Test 06/22/17 00:46 06/22/17 03:00 06/22/17 04:20 White Blood Count 10.5 Red Blood Count 4.05 Hemoglobin 11.8 Hematocrit 34.9 Mean Corpuscular Volume 86.1 Mean Corpuscular Hemoglobin 29.1 Mean Corpuscular Hemoglobin Concent 33.7 Red Cell Distribution Width 17.0 Platelet Count 153 Mean Platelet Volume 8.2 Neutrophils (%) (Auto) 92.6 Lymphocytes (%) (Auto) 4.2 Monocytes (%) (Auto) 3.0 Eosinophils (%) (Auto) 0.1 Basophils (%) (Auto) 0.1 Neutrophils # (Auto) 9.8 Lymphocytes # (Auto) 0.4 Monocytes # (Auto) 0.3 Eosinophils # (Auto) 0.0 Basophils # (Auto) 0.0 CBC Comment DIFF FINAL Differential Comment Prothrombin Time 11.6 Prothromb Time International Ratio 1.0 Activated Partial Thromboplast Time 26.4 Blood Urea Nitrogen 26 Creatinine 1.00 Random Glucose 144 Total Protein 5.3 Albumin 1.5 Calcium Level 7.7 Alkaline Phosphatase 339 Aspartate Amino Transf (AST/SGOT) 12 Alanine Aminotransferase (ALT/SGPT) 20 Total Bilirubin 0.3 Sodium Level 139 Potassium Level 4.1 Chloride Level 102 Carbon Dioxide Level 27.4 Anion Gap 10 Estimat Glomerular Filtration Rate 75 Lactic Acid Level 4.1 3.9 Troponin I 0.06 Lipase 41 Urine Color YELLOW Urine Turbidity HAZY Urine pH 5.5 Urine Specific [place] 1.037 Urine Protein 30 Urine Glucose (UA) NEG Urine Ketones NEG Urine Occult Blood NEG Urine Nitrite NEG Urine Bilirubin NEG Urine Urobilinogen LESS THAN 2.0 Urine Leukocyte Esterase TRACE Urine RBC 13 Urine WBC 7 Urine Squamous Epithelial Cells <1 Urine Bacteria RARE Urine Hyaline Casts 54 Urine Granular Casts 1 Urine Mucus FEW Urine Yeast (Budding) RARE Microscopic Urinalysis Comment CATH-CULTURE IND Date/Time Source Procedure Growth Status 06/22/17 00:46 Blood Peripheral Aerobic Blood Culture Pending Received 06/22/17 00:46 Blood Peripheral Anaerobic Blood Culture Pending Received 06/22/17 04:20 Urine Catheterized Urine Urine Culture Pending Received Result Diagram: 06/22/174506/22/17 004 Imaging 1. Bowel obstruction with an area of transition and narrowing in the distal transverse colon in the splenic flexure region. 2. Mild to moderate ascites. 3. Small subcentimeter hypodensities in the liver. These may represent cysts although they are nonspecific. 4. Bilateral pleural effusions being worse on the left. There are accompanying areas of atelectasis or consolidation the lung bases. Caprini VTE Risk Assessment Caprini VTE Risk Assessment: Mod/High Risk (score >= 2) Caprini Risk Assessment Model Point Value = 1 Point Value = 2 Point Value = 3 Point Value = 5 Age 41-60 Minor surgery BMI > 25 kg/m2 Swollen legs Varicose veins or History of unexplained or recurrent spontaneous Oral contraceptives or hormone replacement Sepsis (< 1 month) Serious lung disease, including pneumonia (< 1 month) Abnormal pulmonary function Acute myocardial infarction Congestive heart failure (< 1 month) History of inflammatory bowel disease Medical patient at bed rest Age 61-74 Arthroscopic surgery Major open surgery (> 45 min) Laparoscopic surgery (> 45 min) Malignancy Confined to bed (> 72 hours) Immobilizing plaster cast Central venous access Age >= 75 History of VTE Family history of VTE Factor V Leiden Prothrombin [id number] Lupus anticoagulant Anticardiolipin antibodies Elevated serum homocysteine Heparin-induced thrombocytopenia Other congenital or acquired thrombophilia Stroke (< 1 month) Elective arthroplasty Hip, pelvis, or leg fracture Acute spinal cord injury (< 1 month) Prophylaxis Regimen Total Risk Factor Score Risk Level Prophylaxis Regimen 0-1 Low Early ambulation 2 Moderate Order ONE of the following: *Sequential Compression Device (SCD) *Heparin 5000 units SQ BID 3-4 Higher Order ONE of the following medications: *Heparin 5000 units SQ TID *Enoxaparin/Lovenox 40 mg SQ daily (WT < 150 kg, CrCl > 30 mL/min) *Enoxaparin/Lovenox 30 mg SQ daily (WT < 150 kg, CrCl > 10-29 mL/min) *Enoxaparin/Lovenox 30 mg SQ BID (WT < 150 kg, CrCl > 30 mL/min) AND/OR *Sequential Compression Device (SCD) 5 or more Highest Order ONE of the following medications: *Heparin 5000 units SQ TID (Preferred with Epidurals) *Enoxaparin/Lovenox 40 mg SQ daily (WT < 150 kg, CrCl > 30 mL/min) *Enoxaparin/Lovenox 30 mg SQ daily (WT < 150 kg, CrCl > 10-29 mL/min) *Enoxaparin/Lovenox 30 mg SQ BID (WT < 150 kg, CrCl > 30 mL/min) AND *Sequential Compression Device (SCD) Assessment and Plan Assessment and Plan Small bowel obstruction - Colonic obstruction - Continue NG tube on suction. - CT abd/pelvis reviewed - Consult GI and General surgery Sepsis - intra-abdominal infection - Zosyn/vancomycin - Cultures 2 - C. difficile PCR - Lactic acid improved from 4.1 --> 3.9 - Infectious disease consultation - Stress dose steroids/patient at home on prednisone Ulcerative colitis - Mesalamine - Steroids - Further per GI Diabetes mellitus - Hold Levemir while nothing by mouth - start sliding scale insulin. Hypertension - Currently hypotensive - Hold Lisinopril 2.5mg Qday, Carvedilol 3.125mg BID. Dementia - Continue Donepezil 5mg QHS DVT GI prophylaxis - Teds SCDs - Subcutaneous heparin - Pepcid Critical Care: The total critical care time was 35 minutes. Time to perform other separately billable procedures was not included in the critical care time. Logan Mace MD Jun 22, 2017 4:57 am
[2017-06-22] MEDS: MESALAMINE HD 800 MG DELAYED RELEASE TAB PO SCH ×3 (06:00→22:01)
[2017-06-22] MEDS: SODIUM CHLOR 0.9% 1000 ML INJ 1,000 ML IV SCH ×3 (07:00→20:43)
--- NOTE | 2017-06-22 08:29 | EKG ---
Date Performed: 06/22/2017 Time Performed: 00:54:21 PTAGE: 66 years EKG: Sinus rhythm WITH OCCASIONAL SUPRAVENTRICULAR PREMATURE COMPLEXES POSSIBLE RIGHT VENTRICULAR CONDUCTION DELAY MIN IMAL VOLTAGE CRITERIA FOR LVH ANTEROLATERAL T WAVE ABNORMALITY, CONSIDER ISCHEMIA INFERIOR MYOCARDIAL INFARCTION ABNORMAL ECG PREVIOUS TRACING : 05/26/2017 16.35 No significant change from previous tracing noted. DOCTOR: Bernabe Lomax Interpretating Date/Time 06/22/2017 08:28:27
[2017-06-22] MEDS: HEPARIN SODIUM - SQ 10,000 UNITS/ML VIAL SQ SCH ×3 (08:31→20:25)
[2017-06-22] MEDS: SODIUM CHLORIDE 0.9% FLUSH 10 ML FLUSH IV FLUSH SCH ×2 (08:31→20:22)
[2017-06-22] MEDS: FAMOTIDINE 20 MG/2 ML VIAL IV PUSH SCH ×2 (08:32→20:25)
[2017-06-22] MEDS: PIPERACIL-TAZO 4.5 GM PREMIX 100 ML IV SCH ×3 (08:32→20:21)
[2017-06-22] MEDS: HYDROCORTISONE SOD SUCCINATE 100 MG VIAL IV PUSH SCH ×4 (08:32→23:54)
[2017-06-22] MEDS: GABAPENTIN 100 MG CAP PO SCH ×3 (08:33→17:46)
[2017-06-22] MEDS: ASCORBIC ACID 500 MG TAB PO SCH ×2 (08:33→20:24)
[2017-06-22] MEDS: FLUoxetine HCL 20 MG CAP PO SCH (08:33)
--- NOTE | 2017-06-22 09:29 | HHI.CCPN ---
Subjective Remarks/Hospital Course 66-year-old male currently residing at the rehabilitation facility comes in due to fever with low blood pressure, abdominal pain and vomiting. He has history of bowel obstruction in the past. He also was diagnosed with C. difficile. Per patient his abdominal pain never got any better since being in the hospital about a month ago. However, he does say that it has gotten worse recently. He vomited today. He says he continues to have diarrhea. He was found to be febrile. He denies chest pain or shortness of breath. He was admitted in the end of April for bowel obstruction and presented in similar fashion at that time. Subjective 06/22: Seen and examined. Currently not on vasopressors. Patient had a large emesis and "feels better" now. Abdomen distended. Patient states she doesn't have a local remediation technician. Pacemaker was "checked" prior to arriving here from [place] within the past several months. Objective Vital Signs Date Time Temp Pulse Resp B/P (MAP) Pulse Ox O2 Delivery O2 Flow Rate FiO2 06/22/17 06:30 06/22/17 06:20 93 06/22/17 05:10 100 18 Nasal Cannula 3.00 06/22/17 00:32 103.0 Intake and Output 06/22/17 06/22/17 06/23/17 08:00 16:00 00:00 Intake Total 5350 ml Output Total 600 ml Balance 4750 ml Result Diagram: 06/22/17 0046 06/22/17 0046 Other Results Microbiology Date/Time Source Procedure Growth Status 06/22/17 00:46 Blood Peripheral Aerobic Blood Culture Pending Received 06/22/17 00:46 Blood Peripheral Anaerobic Blood Culture Pending Received 06/22/17 04:20 Urine Catheterized Urine Urine Culture Pending Received Objective Remarks GENERAL: 66-year-old male, resting in bed critically ill SKIN: Warm and dry. Poor skin turgor HEAD: Atraumatic. Normocephalic. EYES: Pupils equal and round around 3 mm bilaterally and reactive. No scleral icterus. No injection or drainage. ENT: No nasal bleeding or discharge. Mucous membranes dry NECK: Trachea midline. No JVD. CARDIOVASCULAR: Tachycardic, RR. S1, S2 no S4 without murmur RESPIRATORY: Clear to auscultation. Breath sounds equal bilaterally. GASTROINTESTINAL: Abdomen distended, tender to palpation bilateral lower quadrants with voluntary guarding. No rebound. No rigidity. Hypoactive along with high-pitched tympanic bowel sounds are appreciated MUSCULOSKELETAL: Extremities with trace lower extremity bilateral edema. No obvious deformities. NEUROLOGICAL: Awake and alert. RASS 0. No gross focal/sensory deficits. Follows commands in all 4 extremities. Urinary Catheter: No Assessment to: Continue Vascular Central Line Catheter: No Assessment to: Continue A/P Assessment and Plan Neuro/Psych: Acute toxic metabolic encephalopathy secondary to sepsis Dementia disorder NOS Depression NOS Peripheral neuropathy Currently holding donepezil 5 mg at night for dementia Acetaminophen for fever Hydrocodone/acetaminophen and morphine sulfate as needed for pain management Continue fluoxetine 40 mill grams daily and gabapentin 100 mg 3 times a day when clinically indicated CV: History of third-degree heart block - pacemaker currently in sinus tachycardia Hypertension Lactic acidosis History of Atrial fibrillation currently rate controlled Holding carvedilol 3.125 mg twice a day lisinopril 2.5 mg daily light of hypotension Will call to interrogate pacemaker Surgery planned will consult cardiology evaluation risks Serial lactates until clear. +5 L since admission Currently normal saline 125 cc an hour Resp: COPD Right upper lobe calcified granuloma Nasal cannula to maintain saturations greater than or equal to 92% Incentive spirometry while awake As needed albuterol aerosols every 2 hours when necessary dyspnea GI: Large bowel obstruction History of internal/external hemorrhoids UC Sigmoid/descending colonic ulcers Liver cysts Hypoalbuminemia Abdominal ascites CT abdomen/pelvis revealed dilatation the small bowel. Ascending and transverse colon. Transition point the distal transverse colon. Collapsed descending colon. Cecum thickening. Last admission status post colonoscopy 2. Noted 05/27 unable to transverse sigmoid colon due to stricture. Unable to transverse transverse colon due to stricture 06/03. Sigmoid ulcers. C. difficile positive. Currently on mesalamine 800 mg 3 times a day prednisone 20 mg daily - currently on hydrocortisone 50 mg every 6 hours NG tube to [facility] GI/general surgery consult. Home medication famotidine 20 mg twice a day for GI prophylaxis : [place] catheter if indicated for accurate I's and O's in a critically ill patient Endo: IDDM Currently holding insulin detemir 20 night with novulin R sliding scale. Will continue sliding scale insulin with Accu-Cheks to maintain euglycemia Renal: 1.1 left renal cyst/tiny right infrarenal cyst Creatinine currently 1.0 Monitor urine output Accurate I's and O's Heme: Normocytic anemia Monitor CBC daily. Follow trends Previous admission with thrombocytopenia likely secondary infection/DIC. Resolved ID: History of C. difficile She on metronidazole 500 mg every 8 hours and vancomycin 125 mg by mouth every 6 hours Currently on vancomycin 1 g IV twice a day. Appears to being treated with C. difficile. Infectious disease consulted for medication/antibiotic management Blood cultures 2, urine culture 06/22 pending FEN: Replacing electrolytes as clinically indicated MSK: Osteoarthritis Holding calcium carbonate/cholecalciferol 500 mg last 400 units 1 tablet twice a day. Resume when clinically indicated PT evaluate and treat PT/OT evaluate and treat Access - Utilize peripheral IV. Central line if indicated Prophylaxis - GI -famotidine - DVT - SCD/heparin subcutaneous Small bowel obstruction - Colonic obstruction - Continue NG tube on suction. - CT abd/pelvis reviewed - Consult GI and General surgery Sepsis - intra-abdominal infection - Zosyn/vancomycin - Cultures 2 - C. difficile PCR - Lactic acid improved from 4.1 --> 3.9 - Infectious disease consultation - Stress dose steroids/patient at home on prednisone Ulcerative colitis - Mesalamine - Steroids - Further per GI Diabetes mellitus - Hold Levemir while nothing by mouth - start sliding scale insulin. Hypertension - Currently hypotensive - Hold Lisinopril 2.5mg Qday, Carvedilol 3.125mg BID. Dementia - Continue Donepezil 5mg QHS DVT GI prophylaxis - Teds SCDs - Subcutaneous heparin - Pepcid Critical Care: The total critical care time was 35 minutes. Time to perform other separately billable procedures was not included in the critical care time. Yogi Perez MD Jun 22, 2017 09:29
--- NOTE | 2017-06-22 09:48 | PD.CONS ---
HPI History of Present Illness This is a 66 year old male who was sent to the emergency room from a local nursing facility for evaluation of nausea, vomiting, abdominal pain, and worsening abdominal distention. He was hospitalized from 05/25/17- 06/12/17 for bowel obstruction secondary to splenic flexure stricture thought to be most likely ulcerative colitis and CDiff Colitis. During that hospitalization, he underwent 2 incomplete colonoscopies secondary to the stricture and was evaluated with gastrografin enema, which also noted a focal high grade stricture. Of note, he was also evaluated with US abdomen (05/27/17) which revealed discordant velocities in imaging findings, CTA may be of benefit. This was not done secondary to his renal impairment at the time. He then underwent a complete colonoscopy (06/10/17)---> Changes most consistent with colitis probably of the ulcerative type involving left colon splenic flexure stricture benign appearing. Pathology noted transverse colon biopsy without significant histologic abnormality, splenic flexure biopsy acutely inflamed colonic mucosa and granulation tissues consistent with ulceration, descending colon polyp with colonic mucosa without significant histologic abnormality, sigmoid biopsy acute inflamed colonic mucosa and granulation tissue consistent with ulceration, rectum biopsy with acutely inflamed colonic mucosa and granulation tissue consistent with ulceration. It was thought that this was most likely ulcerative colitis and he was started on Asacol HD 800mg po TID and solumedrol. His symptoms improved and therefore he was discharged to a rehab center on Asacol HD 800mg po TID and a prednisone taper with 40mg po daily x 9 days, 30mg x 10 days, 20mg x 10 days, 10mg x 10 days, then 5mg x 10 days and then d/c. He reports that he was doing well on this and was started to have more formed stools, usually 2-3 per day and tolerating a regular diet. However, about 2 days ago, he started having nausea and vomiting with bilious material, diffuse abdominal pain that he describes as a dull ache (constant), and worsening abdominal distention. He also reports that his bowel movements decreased to 1 loose stool per day and reports that he had difficulty passing this. He also reports fevers and chills with a temperature of 103.3. He reports his last bowel movement was yesterday. He has 350cc bilious material and has vomited about 400cc emesis. (Caridad Bradford) PFSH Past Medical History CDiff colitis Suspected Ulcerative colitis vs. 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 Levemir Inj (Insulin Detemir) 1,000 unit/ 10 ML Vial 20 Units SQ HS 06/22/17 Reported Do not mix with any other Insulin. Vitamin C (Ascorbic Acid) 250 Mg Chew 500 Mg CHEW BID 06/22/17 Reported Multi Vitamin Daily (Multiple Vitamin) 1 Tab Tab 06/22/17 Reported Calcium 500 +D (Calcium Carbonate-Cholecalciferol) 500-400 Mg-Unit Tab 1 Tab PO DAILY 06/22/17 Reported Novolin R Inj (Insulin Human Regular) 1,000 Unit/10 Ml Vial 0 SQ DIRECTED 06/22/17 Reported Sliding Scale As Directed. Non-Aspirin (Acetaminophen) 325 Mg Tab 325 Mg PO Q4-6H PRN 06/22/17 Reported Citroma Liq (Magnesium Citrate) 300 Ml Liq 300 Ml PO DIRECTED 06/22/17 Reported Dulcolax Supp (Bisacodyl) 10 Mg Supp 10 Mg RECTAL DAILY PRN 06/22/17 Reported Enema [id number] (Sodium Phosphates) 19 Gram-7 Gram/118 Ml Heydi 06/22/17 Reported Milk of Magnesia Liq (Magnesium Hydroxide) 400 Mg/5 Ml Susp 10 Ml PO Q8HR PRN 06/22/[address] (Mesalamine) 800 Mg Tab 800 Mg PO Q8HR 06/12/17 Rx Prednisone 20 Mg Tab 20 Mg PO DIRECTED 06/12/17 Rx Take 2 tabs (40mg) by mouth daily x 9 days, then take 1.5 tabs (30mg) x 10 days, then take 1 tab (20mg) x 10 days, then take 1/2 tab x 10 days then d/c. Famotidine 20 Mg Tab 20 Mg PO BID 06/12/17 Rx Gabapentin 100 Mg Cap 100 Mg PO TID 06/12/17 Rx Hydrocodone-Acetamin 5-325 mg (Hydrocodone/Acetaminophen) 5 Mg-325 Mg Tablet 1 Tab PO Q6H PRN 06/12/17 Rx Aricept (Donepezil) 23 Mg Tab 5 Mg PO HS 05/21/17 Reported Do not split, crushed or chewed. Carvedilol 3.125 Mg Tab 3.125 Mg PO BID 11/10/16 Reported Lisinopril 10 Mg Tab 2.5 Mg PO DAILY 11/08/16 Reported Fluoxetine (Fluoxetine HCl) 40 Mg Cap 40 Cap PO DAILY 11/08/16 Reported Family History Father, mother, brother with heart disease. Social History Hx of tobacco. Social etoh use. (Caridad Bradford) Review of Systems Constitutional: COMPLAINS OF: Fatigue, Fever, Weight loss, Chills Respiratory: DENIES: Shortness of breath Cardiovascular: DENIES: Chest pain Gastrointestinal: COMPLAINS OF: Abdominal pain, Diarrhea, Nausea, Vomiting, Swelling of Abdomen, DENIES: Black stools, Bloody stools, Constipation Hematologic/lymphatic: DENIES: Bruising Neurologic: DENIES: Headache Psychiatric: DENIES: Confusion (Caridad Bradford) GI Exam Vitals I&O Vital Signs Date Time Temp Pulse Resp B/P (MAP) Pulse Ox O2 Delivery O2 Flow Rate FiO2 06/22/17 06:30 06/22/17 06:20 93 06/22/17 06:05 108/55 (72) 06/22/17 05:34 83/45 (58) 06/22/17 05:10 100 18 76/39 (51) 94 Nasal Cannula 3.00 06/22/17 03:29 97 16 90/51 (64) 93 Nasal Cannula 2.00 06/22/17 02:30 103 16 90/52 (65) 95 Room Air 06/22/17 01:59 99 18 80/43 (55) 93 Room Air 06/22/17 01:09 96 20 89/52 (64) 99 Nasal Cannula 3.00 06/22/17 00:42 99 Nasal Cannula 4.00 06/22/17 00:32 103.0 116 23 81/50 (60) 95 I/O 06/21/17 06/21/17 06/21/17 06/22/17 06/22/17 06/22/17 07:00 15:00 23:00 07:00 15:00 23:00 Intake Total 5350 ml Output Total 600 ml Balance 4750 ml Intake IV Total 5350 ml Output Emesis 600 ml Laboratory Test 06/22/17 00:46 06/22/17 03:00 06/22/17 04:20 06/22/17 07:05 White Blood Count 10.5 TH/MM3 Red Blood Count 4.05 MIL/MM3 Hemoglobin 11.8 GM/DL Hematocrit 34.9 % Mean Corpuscular Volume 86.1 FL Mean Corpuscular Hemoglobin 29.1 PG Mean Corpuscular Hemoglobin Concent 33.7 % Red Cell Distribution Width 17.0 % Platelet Count 153 TH/MM3 Mean Platelet Volume 8.2 FL Neutrophils (%) (Auto) 92.6 % Lymphocytes (%) (Auto) 4.2 % Monocytes (%) (Auto) 3.0 % Eosinophils (%) (Auto) 0.1 % Basophils (%) (Auto) 0.1 % Neutrophils # (Auto) 9.8 TH/MM3 Lymphocytes # (Auto) 0.4 TH/MM3 Monocytes # (Auto) 0.3 TH/MM3 Eosinophils # (Auto) 0.0 TH/MM3 Basophils # (Auto) 0.0 TH/MM3 CBC Comment DIFF FINAL Differential Comment Prothrombin Time 11.6 SEC Prothromb Time International Ratio 1.0 RATIO Activated Partial Thromboplast Time 26.4 SEC Blood Urea Nitrogen 26 MG/DL Creatinine 1.00 MG/DL Random Glucose 144 MG/DL Total Protein 5.3 GM/DL Albumin 1.5 GM/DL Calcium Level 7.7 MG/DL Alkaline Phosphatase 339 U/L Aspartate Amino Transf (AST/SGOT) 12 U/L Alanine Aminotransferase (ALT/SGPT) 20 U/L Total Bilirubin 0.3 MG/DL Sodium Level 139 MEQ/L Potassium Level 4.1 MEQ/L Chloride Level 102 MEQ/L Carbon Dioxide Level 27.4 MEQ/L Anion Gap 10 MEQ/L Estimat Glomerular Filtration Rate 75 ML/MIN Lactic Acid Level 4.1 mmol/L 3.9 mmol/L Troponin I 0.06 NG/ML Lipase 41 U/L Urine Color YELLOW Urine Turbidity HAZY Urine pH 5.5 Urine Specific [place] 1.037 Urine Protein 30 mg/dL Urine Glucose (UA) NEG mg/dL Urine Ketones NEG mg/dL Urine Occult Blood NEG Urine Nitrite NEG Urine Bilirubin NEG Urine Urobilinogen LESS THAN 2.0 MG/DL Urine Leukocyte Esterase TRACE Urine RBC 13 /hpf Urine WBC 7 /hpf Urine Squamous Epithelial Cells <1 /hpf Urine Bacteria RARE /hpf Urine Hyaline Casts 54 /lpf Urine Granular Casts 1 /lpf Urine Mucus FEW /lpf Urine Yeast (Budding) RARE Microscopic Urinalysis Comment CATH-CULTURE IND Date/Time Source Procedure Growth Status 06/22/17 00:46 Blood Peripheral Aerobic Blood Culture Pending Received 06/22/17 00:46 Blood Peripheral Anaerobic Blood Culture Pending Received 06/22/17 04:20 Urine Catheterized Urine Urine Culture Pending Received Physical Examination HEENT: Normocephalic; atraumatic; no jaundice. CHEST: CTA CARDIAC: RRR ABDOMEN: Soft, distended, mild to moderate diffuse tenderness; no hepatosplenomegaly; bowel sounds are present in all four quadrants. NGT to liws with bilious material EXTREMITIES: No clubbing, cyanosis, or edema. SKIN: Cool, dry ASSET PROTECTION OFFICER: No focal deficits; alert and oriented times three. (Caridad BradfordP) Assessment and Plan Plan ASSESSMENT: - Bowel obstruction. CT Scan abdomen and pelvis (06/22/17)---> Bowel obstruction with an area of transition and narrowing in the distal transverse colon in splenic flexure region. Mild to moderate ascites. Small subcentimeter hypodensities in the liver, may represent cysts although they are nonspecific. Bilateral pleural effusions being worse on the left. There are accompanying areas of atelectasis or consolidation in the lung bases. Pt was recently hospitalized with Cdiff colitis and bowel obstruction secondary to splenic flexure from 05/25-06/02. Of note, US abdomen (05/27/17)---> discordant velocities in imaging findings, CTA may be of benefit. This was not done secondary to his renal impairment at the time. Colonoscopy (06/10/17)---> Changes most consistent with colitis probably of the ulcerative type involving left colon splenic flexure stricture benign appearing. Pathology noted transverse colon biopsy without significant histologic abnormality, splenic flexure biopsy acutely inflamed colonic mucosa and granulation tissues consistent with ulceration, descending colon polyp with colonic mucosa without significant histologic abnormality, sigmoid biopsy acute inflamed colonic mucosa and granulation tissue consistent with ulceration, rectum biopsy with acutely inflamed colonic mucosa and granulation tissue consistent with ulceration. He was started on Asacol HD 800mg po TID and a prednisone taper with 40mg po daily x 9 days, 30mg x 10 days, 20mg x 10 days, 10mg x 10 days, then 5mg x 10 days and then d/c. He improved on this up until two days ago when he developed worsening distention, nausea, vomiting, pain, and decreased stool output. NGT to LIWS, NPO. Abx. Stricture secondary to ulcerative colitis vs. ischemic colitis. Will ask radiology to reconstruct contrasted CT to better evaluate mesenteric vasculature. GS consulted, likely will need surgery. - Sepsis with bowel obstruction and recent hx of CDiff colitis. Check CDiff. Urine, blood cx pending. Vancomycin, Zosyn. Add Flagyl, Oral vanco. - Anemia, 11.8, 34.9. - CMP, CHF, DM, Hyperlipidemia per attending. PLAN: - NPO - NGT to LIWS - Ask radiology to reconstruct contrasted CT scan to evaluate mesenteric vasculature - Send stool for CDiff - Cont. Steroids - Add Flagyl, Oral Vanco for now - GS consult pending. - Monitor labs - Supportive care - Further recommendations to follow based on results of above - Pt seen and examined by Dr. Perry and myself and this note is written on her behalf (Caridad Bradford) Physician Comments discussed with surgery agree on cta first consider tpn , nutritional consult (Chloe Perry MD) Caridad Bradford Jun 22, 2017 09:48 Chloe Perry MD Jun 22, 2017 17:09
[2017-06-22] MEDS: metroNIDAZOLE 500 MG INJ 100 ML IV SCH ×3 (11:05→23:54)
[2017-06-22] MEDS: VANCOMYCIN 500 MG VIAL (FOR ORAL USE ONLY) PO SCH ×4 (11:05→20:24)
--- NOTE | 2017-06-22 11:38 | PD.ID.CON ---
History of Present Illness Service ID Consult Requested By Dr Mace Reason for Consult sepsis Primary Care Physician Elder Rebolledo MD Diagnoses: History of Present Illness 66 male admitted last month with C.diff related diarrhea He was readmitted yday from rehabilitation facility comes with fever hypotension abdominal pain and vomiting. He has history of bowel obstruction in the past. He recently was admitted for bowel obstruction, Bacteroides sepsis and C.diff Colonoscopy from 06/03 showed Multiple large non-bleeding, irregular shaped and clean-based ulcers were found in the sigmoid colon, at the splenic flexure, and in the descending colon. A large non-bleeding, irregular shaped and clean- based ulcer with surrounding edema was found in the transverse colon. He c/o severe pain, had multiple episodes of emesis CT from today showed bowel obstruction with splenic flexure region narrowing GI is following He was eval'd by surgeon Pt was started on broad spectrum abx and tx for c.diff wss added Pt's path from 06/[address] Talbot: differential includes chronic ischemia, less likely inflammatory bowel dx or healed c.diff colitis On CT Bilateral pleural effusions being worse on the left. There are accompanying areas of atelectasis or consolidation the lung bases. Past Family Social History Allergies: Coded Allergies: No Known Allergies (Unverified Adverse Reaction, Unknown, 05/25/17) Past Medical History 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 difficile colitis RLE fracture, required a cast Past Surgical History Third degree AV block status post pacemaker placement R knee surgery CT for PTX Active Ordered Medications Medications where reviewed in EMR Antibiotics Include: vanco IV vanco PO flagyl zosyn Family History Father, mother, brother with heart disease. Social History Smokes one pack a day. Told me he quite recently Drinks alcohol socially. no IVDU Physical Exam Vital Signs Vital Signs Date Time Temp Pulse Resp B/P (MAP) Pulse Ox O2 Delivery O2 Flow Rate FiO2 06/22/17 06:30 06/22/17 06:20 93 06/22/17 06:05 108/55 (72) 06/22/17 05:34 83/45 (58) 06/22/17 05:10 100 18 76/39 (51) 94 Nasal Cannula 3.00 06/22/17 03:29 97 16 90/51 (64) 93 Nasal Cannula 2.00 06/22/17 02:30 103 16 90/52 (65) 95 Room Air 06/22/17 01:59 99 18 80/43 (55) 93 Room Air 06/22/17 01:09 96 20 89/52 (64) 99 Nasal Cannula 3.00 06/22/17 00:42 99 Nasal Cannula 4.00 06/22/17 00:32 103.0 116 23 81/50 (60) 95 Physical Exam CONSTITUTIONAL/GENERAL: This is an adequately nourished patient, in no apparent distress. TUBES/LINES/DRAINS: SKIN: No jaundice, rashes, or lesions. Skin temperature appropriate. Not diaphoretic. HEAD: Atraumatic. Normocephalic. EYES: Pupils equal and round and reactive. Extraocular motions intact. No scleral icterus. No injection or drainage. Fundi not examined. ENT: Hearing grossly normal. Nose without bleeding or purulent drainage. Throat without visible erythema, exudates, masses, or lesions. NECK: Trachea midline. Supple, nontender. No palpable thyroid enlargement or nodularity. CARDIOVASCULAR: Regular rate and rhythm without murmurs, gallops, or rubs. No JVD. Peripheral pulses symmetric. Pacer in place L chest RESPIRATORY/CHEST: Symmetric, unlabored respirations. B/l rhonchi to auscultation. Breath sounds equal bilaterally. GASTROINTESTINAL: Abdomen soft, very diffusely tender with guarding and rebound tenderness + distended. No hepato-splenomegaly, or palpable masses. Bowel sounds present. GENITOURINARY: Without palpable bladder distension. Laguna catheter in place. MUSCULOSKELETAL: Extremities with prominent clubbing, no edema. + cyanosis bn/l feet No joint tenderness or effusion noted. No calf tenderness. No mottling or clubbing. LYMPHATICS: No palpable cervical or supraclavicular adenopathy. NEUROLOGICAL: Awake and alert. Motor and sensory grossly within normal limits. Follows commands. Cognitively sharp. Moves all extremities. PSYCHIATRIC: No obvious anxiety/depression. no apparent hallucinations or other psychotic thought process. Laboratory Laboratory Tests Test 06/22/17 00:46 06/22/17 03:00 06/22/17 04:20 06/22/17 07:05 White Blood Count 10.5 Red Blood Count 4.05 Hemoglobin 11.8 Hematocrit 34.9 Mean Corpuscular Volume 86.1 Mean Corpuscular Hemoglobin 29.1 Mean Corpuscular Hemoglobin Concent 33.7 Red Cell Distribution Width 17.0 Platelet Count 153 Mean Platelet Volume 8.2 Neutrophils (%) (Auto) 92.6 Lymphocytes (%) (Auto) 4.2 Monocytes (%) (Auto) 3.0 Eosinophils (%) (Auto) 0.1 Basophils (%) (Auto) 0.1 Neutrophils # (Auto) 9.8 Lymphocytes # (Auto) 0.4 Monocytes # (Auto) 0.3 Eosinophils # (Auto) 0.0 Basophils # (Auto) 0.0 CBC Comment DIFF FINAL Differential Comment Prothrombin Time 11.6 Prothromb Time International Ratio 1.0 Activated Partial Thromboplast Time 26.4 Blood Urea Nitrogen 26 Creatinine 1.00 Random Glucose 144 Total Protein 5.3 Albumin 1.5 Calcium Level 7.7 Alkaline Phosphatase 339 Aspartate Amino Transf (AST/SGOT) 12 Alanine Aminotransferase (ALT/SGPT) 20 Total Bilirubin 0.3 Sodium Level 139 Potassium Level 4.1 Chloride Level 102 Carbon Dioxide Level 27.4 Anion Gap 10 Estimat Glomerular Filtration Rate 75 Lactic Acid Level 4.1 3.9 Troponin I 0.06 Lipase 41 Urine Color YELLOW Urine Turbidity HAZY Urine pH 5.5 Urine Specific [place] 1.037 Urine Protein 30 Urine Glucose (UA) NEG Urine Ketones NEG Urine Occult Blood NEG Urine Nitrite NEG Urine Bilirubin NEG Urine Urobilinogen LESS THAN 2.0 Urine Leukocyte Esterase TRACE Urine RBC 13 Urine WBC 7 Urine Squamous Epithelial Cells <1 Urine Bacteria RARE Urine Hyaline Casts 54 Urine Granular Casts 1 Urine Mucus FEW Urine Yeast (Budding) RARE Microscopic Urinalysis Comment CATH-CULTURE IND Nasal Screen MRSA (PCR) MRSA NOT DETECTED Date/Time Source Procedure Growth Status 06/22/17 00:46 Blood Peripheral Aerobic Blood Culture Pending Received 06/22/17 00:46 Blood Peripheral Anaerobic Blood Culture Pending Received 06/22/17 04:20 Urine Catheterized Urine Urine Culture Pending Received Result Diagram: 06/22/17 0046 06/22/176 Imaging Last Impressions Chest X-Ray 06/22/1735 Signed Impressions: Service Date/Time: Thursday, June 22, 2017 00:48 - CONCLUSION: 1. Improved aeration and improving consolidation bilaterally. 2. Residual focal areas of bronchopneumonia or masses seen in the left mid and lower lung. Continued followup is recommended. 3. Calcified granuloma in the right upper lung. Forrest Doshi MD Abdomen/Pelvis CT 06/22/17 0036 Signed Impressions: Service Date/Time: Thursday, June 22, 2017 02:43 - CONCLUSION: 1. Bowel obstruction with an area of transition and narrowing in the distal transverse colon in the splenic flexure region. 2. Mild to moderate ascites. 3. Small subcentimeter hypodensities in the liver. These may represent cysts although they are nonspecific. 4. Bilateral pleural effusions being worse on the left. There are accompanying areas of atelectasis or consolidation the lung bases. Forrest Doshi MD Assessment and Plan Assessment and Plan Bowel obstruction, recurrent - surgery ff, planning surgery Recent C.diff Hypoxia, effusions ? ARDS High risk for surgery per cardiac eval cont tx for C.diff awaiting surgical decision Discussed Condition With Rodger Roldan Houghes Crossman, Alexandra A. MD Jun 22, 2017 11:38
[2017-06-22] MEDS ORDERED: DEXTROSE 50% IN WATER 50 ML VIAL(D50) IV PUSH PRN (12:30)
[2017-06-22] MEDS ORDERED: GLUCAGON 1 MG/ML VIAL OTHER PRN (12:30)
[2017-06-22 13:49] LABS: BICARBONATE 25.9 MEQ/L (21.0-32.0); POTASSIUM 4.1 MEQ/L (3.5-5.1)
--- NOTE | 2017-06-22 13:59 | MB ---
cc: ERVIN POTTER MD DATE OF CONSULTATION: 06/22/2017 REASON FOR CONSULTATION Colonic obstruction, abdominal pain. HISTORY OF PRESENT ILLNESS The patient is a 66-year-old male who presented to the emergency department with nausea, vomiting, abdominal pain. He was noted to have a previous hospitalization from 05/25/2017 to 06/12/2017 for which he was discharged. During that hospital stay he was found to have obstruction which improved. He was also noted to have C. Difficile colitis and questionable ulcerative versus ischemic colitis. Again, during that hospitalization the patient improved and was discharged to facility and continued to improve. He did complete a full regimen for C. Difficile colitis with antibiotics and was having several bowel movements per day. The patient notes that approximately 2 days ago he began to have significant abdominal pain, nausea, vomiting and fever of 103.3. He came to the emergency department for further evaluation including CT scan which showed bowel obstruction transition distal transverse colon, mild ascites, small pleural effusions. He was placed on antibiotics. NG tube was placed. He has improved somewhat but still does have some persistent abdominal pain. Last bowel movement was yesterday. He did again have some bilious vomiting as well. PAST MEDICAL HISTORY 1. C. Difficile colitis, questionable ulcerative versus ischemic colitis. 2. Stricture of colon. 3. COPD. 4. Diabetes. 5. Hypertension. 6. AV block status post pacer. PAST SURGICAL HISTORY Colonoscopies. ALLERGIES NO KNOWN DRUG ALLERGIES. MEDICATIONS See EMR. SOCIAL HISTORY History of smoking and occasional ETOH. Denies IVDA. FAMILY HISTORY Mother and brother with coronary artery disease. Denies diabetes. REVIEW OF SYSTEMS CONSTITUTIONAL: Complaint of fever and vomiting. RESPIRATORY: Denies cough or wheeze. NECK: Denies swelling or pain. HEENT: Denies eye pain, ear pain. CARDIOVASCULAR: Denies chest pain or palpitations. : Complains of nausea, vomiting, abdominal pain. HEME: Denies bruising or hemarthrosis. NEUROLOGIC: Denies numbness or tingling, dementia. PSYCHE: Denies change in sensorium. INTEGUMENT: Denies masses or lesions. PHYSICAL EXAMINATION GENERAL: The patient is in no acute distress. VITAL SIGNS: Temperature 103, pulse 116, respiration 23, blood pressure 81/50, saturation 95%. HEENT: Pupils equal, round, reactive. NECK: Supple. Trachea midline. LUNGS: Clear to auscultation, bilateral expansion. HEART: S1-S2, regular. ABDOMEN: Positive tenderness to palpation, soft, diffuse tenderness. Mild distension. EXTREMITIES: Warm, well-perfused. NEUROLOGIC: GCS of 15, some dementia, 5/5 motor all extremities. INTEGUMENT: No obvious masses or lesions. LABORATORY AND DIAGNOSTIC DATA WBC 10.5, hemoglobin 11.8, hematocrit 34.9, platelets 153. Sodium 135, potassium 4.1, CO2 102, BUN 26, creatinine 1, glucose 144, lactate 4.1. T-bili 0.3, AST 12, ALT 20, alkaline phos 339. Albumin 1.5, lipase 41, INR 1. CT reviewed by myself showing colonic obstruction transition distal transverse, decompressed distally, dilated proximally, mild ascites, no evidence of free air or perforation, small liver lesion, likely cyst, bilateral effusions. ASSESSMENT The patient is a 66-year-old male who presents with colonic obstruction, concern for colonic stricture distal transverse. Positive fevers, questionable ischemic versus ulcerative colitis. PLAN After full clinical radiologic, laboratory workup, the patient with above-named issues. The patient does have colonic stricture. At this point agree with NG tube placement, IV pain control, IV antibiotics, n.p.o., IV fluid resuscitation. The patient will need surgical intervention this hospital stay. Discussed with the patient regarding potential options. Recommend CT angio to further delineate whether this is ischemic event causing ulcerations and stricture versus inflammatory bowel disease and a more progressive autoimmune etiology. If stricture is more of isolated ischemic event, the patient will benefit from segmental colectomy. Discussed the risk of possibly doing a colostomy as well for diversion, however, if this is more concerning for ulcerative colitis, the patient would be better benefited likely from a total colectomy. Again, we will obtain CT angio to further delineate this. MD KWAME Echevarria/BITA /1:18 PM /1:39 PM
[2017-06-22] MEDS ORDERED: VANCOMYCIN 1,000 MG/NS 250 ML IV SCH ×2 (14:00)
[2017-06-22 14:03] LABS: CALCIUM-PROTEIN CORRECTED 8.5 MG/DL (8.5-10.1)
[2017-06-22 14:37] LABS: LACTIC ACID GHOST NOT REPORTABLE
[2017-06-22] MEDS ORDERED: MORPHINE SULFATE 2 MG/ML INJ IV PUSH PRN (14:45)
[2017-06-22] MEDS ORDERED: MORPHINE SULFATE 4 MG/ML INJ IV PUSH PRN (14:45)
[2017-06-22] MEDS: INSULIN NovoLIN REGULAR SUPPLEMENTAL SCALE SQ SCH ×3 (17:46→23:54)
--- NOTE | 2017-06-22 17:55 | MB ---
cc: DOMINGO RABAGO M.D. DATE OF CONSULTATION 06/22/2017 REASON FOR CONSULTATION Evaluation of preoperative risk assessment. HISTORY OF THE PRESENT ILLNESS Aristides Gutierrez is a 66-year-old man who sees my partner Dr. Padron. The patient is known to have diabetes which is poorly controlled. Apparently he is not very compliant. He also continues to smoke despite multiple counseling efforts. He has a [employer]onic dual-chamber pacemaker placed April 24, 2016. This was last checked in the office March 08. At that time it is functioning in an MVP mode with 95% atrial pacing and less than 1% ventricular pacing. The pacemaker was functioning appropriately. He has had a prior workup with an echo and a stress test. His echocardiogram Doppler study was performed in October showed an ejection fraction of 40%. His nuclear stress test showed a fixed inferior defect with a similar ejection fraction. The patient thinks he may have had a heart attack years ago when he lived up [place]. He does not have any anginal symptoms. Denies any congestive heart failure history. Denies any dyspnea, lower extremity edema, orthopnea or PND. He has physically not been active. He has been struggling with diarrhea and colitis going on now for least a month. He has COPD from smoking but has not taken advice to quit smoking in the past. PAST MEDICAL HISTORY Does include: 1. His heart disease. 2. COPD. 3. Diabetes, 4. Hypertension. 5. Pacemaker. PAST SURGICAL HISTORY Includes colonoscopies. SOCIAL HISTORY Notable for smoking. Occasional alcohol use only. FAMILY HISTORY Positive for heart disease in both parents. PHYSICAL EXAMINATION GENERAL: Reveals a chronically appearing thin, white male not in any acute distress. VITAL SIGNS: Charted. HEENT: Exam unremarkable. NECK: No bruits. No JVD. CHEST: Clear to auscultation. CARDIOVASCULAR: S1-S2 regular rate and rhythm. No murmurs, gallops. ABDOMEN: Shows positive bowel sounds. EXTREMITIES: Show no peripheral edema. Pedal pulses seem to be diminished. LABORATORY DATA His laboratories show a hematocrit of 34.9. Lactic acid was elevated on admission. Creatinine is normal at 0.95. IMAGING His chest x-ray shows residual focal areas of bronchopneumonia or masses in the left mid and lower lung lopez. IMPRESSION This a 66-year-old man who is definitely at increased risk of undergoing ____ complications from surgery. There seems to be some degree of protein malnutrition. He is a long time smoker. He has impaired LV function although no documented ischemia on a stress test this past year. Currently not showing any signs of angina, coronary insufficiency or CHF. From a cardiac perspective if he needs surgery, it does not need to be delayed with recognition that surgical risk is elevated. I will be available to answer questions or provide support if needed. Please call if any questions. MD CUAUHTEMOC Licona/KK /5:20 PM /5:40 PM
[2017-06-22] MEDS: DONEPEZIL HCL 5 MG TAB PO SCH (20:24)
[2017-06-22] MEDS ORDERED: DONEPEZIL HCL 23 MG TAB PO SCH (21:00)
[2017-06-23] VITALS (16 sets, daily range): BP systolic 96–116; BP diastolic 51–68; PULSE 91–99; RESP 18–30; TEMP 97.6–99.2; O2SAT 94–100
[2017-06-23] MEDS: PIPERACIL-TAZO 4.5 GM PREMIX 100 ML IV SCH ×5 (01:24→20:52)
[2017-06-23 03:06] LABS: C. DIFF EPI 027 PRESUMPTIVE NEGATIVE (NEGATIVE)
[2017-06-23] MEDS: SODIUM CHLOR 0.9% 1000 ML INJ 1,000 ML IV SCH ×4 (03:42→20:24)
[2017-06-23] MEDS: CHLORHEXIDINE GLUCONATE 2 % 1 PACK (2 CLOTHS) TOP SCH (04:00)
[2017-06-23] MEDS: INSULIN NovoLIN REGULAR SUPPLEMENTAL SCALE SQ SCH ×5 (04:00→20:00)
[2017-06-23] MEDS: MESALAMINE HD 800 MG DELAYED RELEASE TAB PO SCH ×3 (05:49→22:20)
[2017-06-23] MEDS: HEPARIN SODIUM - SQ 10,000 UNITS/ML VIAL SQ SCH (05:49)
[2017-06-23] MEDS: HYDROCORTISONE SOD SUCCINATE 100 MG VIAL IV PUSH SCH ×4 (05:49→23:29)
[2017-06-23 06:19] LABS: AUTOMATED NEUTROPHIL # 12.5 TH/MM3 (1.8-7.7); BASOPHIL % 0.1 % (0.0-2.0); HEMATOCRIT 29.2 % (39.0-51.0); HEMO FLAGS DIFF FINAL; LYMPH % 4.5 % (9.0-44.0); LYMPHOCYTE # 0.6 TH/MM3 (1.0-4.8); MEAN CELL VOLUME 86.7 FL (80.0-100.0); MEAN CORPUSCULAR HEMOGLOBIN 28.6 PG (27.0-34.0); MEAN CORPUSCULAR HGB CONC 32.9 % (32.0-36.0); MONO % 2.9 % (0.0-8.0); NEUT % 92.5 % (16.0-70.0); PLATELET COUNT 141 TH/MM3 (150-450); RED BLOOD COUNT 3.37 MIL/MM3 (4.50-5.90); RED CELL DISTRIBUTION WIDTH 17.7 % (11.6-17.2); WHITE BLOOD COUNT 13.5 TH/MM3 (4.0-11.0)
[2017-06-23 06:53] LABS: BICARBONATE 28.5 MEQ/L (21.0-32.0); CALCIUM-PROTEIN CORRECTED 8.1 MG/DL (8.5-10.1); MAGNESIUM 1.3 MG/DL (1.5-2.5); POTASSIUM 3.1 MEQ/L (3.5-5.1); TOTAL BILIRUBIN ADULT 0.4 MG/DL (0.2-1.0)
[2017-06-23] MEDS ORDERED: ALBUMIN 25% INJ 100 ML IV ONE (07:00)
[2017-06-23] MEDS ORDERED: POTASSIUM CHLORIDE 20 MEQ PWD PACKET NG ONE (07:00)
[2017-06-23] MEDS: MAGNESIUM SULFATE 1 GM PREMIX 100 ML IV SCH ×3 (07:08→17:54)
--- NOTE | 2017-06-23 07:16 | HHI.CCPN ---
Subjective Remarks/Hospital Course 66-year-old male currently residing at the rehabilitation facility comes in due to fever with low blood pressure, abdominal pain and vomiting. He has history of bowel obstruction in the past. He also was diagnosed with C. difficile. Per patient his abdominal pain never got any better since being in the hospital about a month ago. However, he does say that it has gotten worse recently. He vomited today. He says he continues to have diarrhea. He was found to be febrile. He denies chest pain or shortness of breath. He was admitted in the end of April for bowel obstruction and presented in similar fashion at that time. 06/22: Seen and examined. Currently not on vasopressors. Patient had a large emesis and "feels better" now. Abdomen distended. 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 Pacemaker was "checked" prior to arriving here from [place] within the past several months. Subjective 06/23: Afebrile. Kidneys a complaint of abdominal pain bilateral lower quadrants infraumbilical. One bowel movement documented however patient denies.. Very rare flatus. Plan for CT angiogram of the abdomen today Objective Vital Signs Date Time Temp Pulse Resp B/P (MAP) Pulse Ox O2 Delivery O2 Flow Rate FiO2 06/23/17 06:00 96 06/23/17 04:00 98.5 19 96/53 (67) 97 06/22/17 21:51 Nasal Cannula 2.50 Intake and Output 06/23/17 06/23/17 06/24/17 08:00 16:00 00:00 Intake Total 1200 ml Output Total 1250 ml Balance -50 ml Result Diagram: 06/23/17 0542 06/23/17 0542 Other Results Microbiology Date/Time Source Procedure Growth Status 06/22/17 12:23 Blood Peripheral Aerobic Blood Culture Pending Received 06/22/17 12:23 Blood Peripheral Anaerobic Blood Culture Pending Received 06/22/17 04:20 Urine Catheterized Urine Urine Culture Pending Received Imaging Last Impressions Chest X-Ray 06/22/17 0036 Signed Impressions: Service Date/Time: Thursday, June 22, 2017 00:48 - CONCLUSION: 1. Improved aeration and improving consolidation bilaterally. 2. Residual focal areas of bronchopneumonia or masses seen in the left mid and lower lung. Continued followup is recommended. 3. Calcified granuloma in the right upper lung. Forrest Doshi MD Abdomen/Pelvis CT 06/22/17 0036 Signed Impressions: Service Date/Time: Thursday, June 22, 2017 02:43 - CONCLUSION: 1. Bowel obstruction with an area of transition and narrowing in the distal transverse colon in the splenic flexure region. 2. Mild to moderate ascites. 3. Small subcentimeter hypodensities in the liver. These may represent cysts although they are nonspecific. 4. Bilateral pleural effusions being worse on the left. There are accompanying areas of atelectasis or consolidation the lung bases. Forrest Doshi MD Objective Remarks GENERAL: 66-year-old male, resting in bed critically ill SKIN: Warm and dry. Poor skin turgor HEAD: Atraumatic. Normocephalic. EYES: Pupils equal and round around 3 mm bilaterally and reactive. No scleral icterus. No injection or drainage. ENT: No nasal bleeding or discharge. Mucous membranes dry. NG tube in place in right nares NECK: Trachea midline. No JVD. CARDIOVASCULAR: Tachycardic, RR. S1, S2 no S4 without murmur RESPIRATORY: Clear to auscultation. Breath sounds equal bilaterally. GASTROINTESTINAL: Abdomen distended, tender to palpation bilateral lower quadrants with voluntary guarding. No rebound. No rigidity. Hypoactive along with high-pitched tympanic bowel sounds are appreciated MUSCULOSKELETAL: Extremities with trace lower extremity bilateral edema. No obvious deformities. NEUROLOGICAL: Awake and alert. RASS 0. No gross focal/sensory deficits. Follows commands in all 4 extremities. A/P Assessment and Plan Neuro/Psych: Acute toxic metabolic encephalopathy secondary to sepsis Dementia disorder NOS Depression NOS Peripheral neuropathy Currently holding donepezil 5 mg at night for dementia Acetaminophen for fever morphine sulfate as needed for pain management Continue fluoxetine 40 mill grams daily and gabapentin 100 mg 3 times a day as clinically indicated CV: History of third-degree heart block - pacemaker currently in sinus tachycardia History of Hypertension Lactic acidosis - resolved History of Atrial fibrillation currently rate controlled Holding carvedilol 3.125 mg twice a day lisinopril 2.5 mg daily light of hypotension Cardiology - Dr. Dunham is seen Serial lactates until clear. Currently 1.8 Currently normal saline 125 cc an hour Resp: COPD Right upper lobe calcified granuloma Nasal cannula to maintain saturations greater than or equal to 92%. Currently in room air Incentive spirometry while awake As needed albuterol aerosols every 2 hours when necessary dyspnea GI: Large bowel obstruction History of internal/external hemorrhoids UC Sigmoid/descending colonic ulcers Liver cysts Hypoalbuminemia Abdominal ascites CT abdomen/pelvis revealed dilatation the small bowel. Ascending and transverse colon. Transition point the distal transverse colon. Collapsed descending colon. Cecum thickening. Last admission status post colonoscopy 2. Noted 05/27 unable to transverse sigmoid colon due to stricture. Unable to transverse transverse colon due to stricture 06/03. Sigmoid ulcers. C. difficile positive. Currently on mesalamine 800 mg 3 times a day prednisone 20 mg daily - currently on hydrocortisone 50 mg every 6 hours NG tube to [facility] GI/general surgery consult. Plan for CT angiogram of the abdomen today. Home medication famotidine 20 mg twice a day for GI prophylaxis Bolused albumin 1 today 25% 50 cc If no surgery plan today we'll start on either PPN or TPN : Laguna catheter if indicated for accurate I's and O's in a critically ill patient Endo: IDDM Currently holding insulin detemir 20 night with novulin R sliding scale. Will continue sliding scale insulin Novulin R every 4 hours medium with Accu- Cheks to maintain euglycemia Renal: 1.1 left renal cyst/tiny right infrarenal cyst Creatinine currently 1.0 Monitor urine output Accurate I's and O's Heme: Normocytic anemia Leukocytosis Thrombocytopenia Monitor CBC daily. Follow trends Previous admission with thrombocytopenia likely secondary infection/DIC. ID: History of C. difficile Cystitis/UTI She on metronidazole 500 mg every 8 hours and vancomycin 125 mg by mouth every 6 hours Infectious disease added piperacillin/tazobactam 3.375 g IV every 6 hours Appears to being treated with C. difficile. C. difficile negative this admission Blood cultures 2, urine culture 06/22 pending FEN: Hypokalemia Hypo-magnesium Replacing electrolytes as clinically indicated 40 mEq KCl by tube, 30 mEq IV 1. 3 g mag sulfate IV 1. Recheck this evening MSK: Osteoarthritis Holding calcium carbonate/cholecalciferol 500 mg last 400 units 1 tablet twice a day. Resume when clinically indicated PT evaluate and treat PT/OT evaluate and treat Access - Utilize peripheral IV. Central line if indicated Prophylaxis - GI -famotidine - DVT - SCD/heparin subcutaneous Level III follow-up Yogi Perez MD Jun 23, 2017 07:16
[2017-06-23] MEDS ORDERED: ACETAMINOPHEN 1000 MG/100 ML 100 ML IV PRN (07:30)
[2017-06-23] MEDS: SODIUM CHLORIDE 0.9% FLUSH 10 ML FLUSH IV FLUSH SCH ×2 (09:00→20:53)
[2017-06-23] MEDS: POTASSIUM CHLOR 10 MEQ PREMIX 100 ML IV SCH ×3 (10:00→17:49)
[2017-06-23] MEDS: metroNIDAZOLE 500 MG INJ 100 ML IV SCH ×3 (10:12→18:30)
[2017-06-23] MEDS: FLUoxetine HCL 20 MG CAP PO SCH (10:13)
[2017-06-23] MEDS: FAMOTIDINE 20 MG/2 ML VIAL IV PUSH SCH ×2 (10:14→20:54)
[2017-06-23] MEDS: GABAPENTIN 100 MG CAP PO SCH ×3 (10:14→18:00)
[2017-06-23] MEDS: VANCOMYCIN 500 MG VIAL (FOR ORAL USE ONLY) PO SCH (10:14)
[2017-06-23] MEDS: ASCORBIC ACID 500 MG TAB PO SCH ×2 (10:15→20:53)
--- NOTE | 2017-06-23 11:35 | RADRPT ---
EXAM DATE/TIME: 06/23/2017 10:13 [facility] COMPARISON: CT ABDOMEN & PELVIS W CONTRAST, June 22, 2017, 2:43. INDICATIONS : Abdominal pain and distension. Rule out ileus. MEDICAL HISTORY : Cardiovascular disease. Hypertension. Diabetes mellitus type 2. SURGICAL HISTORY : Pacemaker. ENCOUNTER: Subsequent ACUITY: 3 days PAIN SCORE: 5/10 LOCATION: abdomen FINDINGS: Several loops of mildly distended air-filled small bowel in the midabdomen. This is improved from rec ent CT exam. Air is seen in the descending colon. Contrast noted in the bladder. No gross free air or pneumatosis. Osseous structures are intact. CONCLUSION: 1. Findings consistent with improving partial small bowel obstruction. Maynor Shepard MD on June 23, 2017 at 11:02 Board Certified Radiologist. This report was verified electronically.
[2017-06-23] MEDS ORDERED: IOHEXOL 350 MG/ML 10 ML VIAL (for RAD DIAG) IVCONTRAST ONE (11:50)
--- NOTE | 2017-06-23 11:57 | HHI.GIFU ---
Subjective Remarks Resting in bed. He had a large liquid stool this am. Continues to have abdominal pain- but states slightly improved after having a bowel movement. States his abdomen is less distended after bm. Going for CTA shortly. (Caridad Bradford) Objective Vitals I&O Vital Signs Date Time Temp Pulse Resp B/P (MAP) Pulse Ox O2 Delivery O2 Flow Rate FiO2 06/23/17 08:33 96 Nasal Cannula 2.50 06/23/17 06:00 96 06/23/17 04:00 95 06/23/17 04:00 98.5 95 19 96/53 (67) 97 06/23/17 02:00 96 06/23/17 00:00 96 06/23/17 00:00 99.2 96 30 97/51 (66) 96 06/22/17 22:00 102 06/22/17 21:51 96 Nasal Cannula 2.50 06/22/17 20:00 98.7 98 24 117/67 (84) 97 06/22/17 20:00 96 06/22/17 19:00 99 Nasal Cannula 2.00 06/22/17 18:00 96 06/22/17 16:00 95 06/22/17 16:00 99.2 95 24 117/59 (78) 96 06/22/17 14:00 98 06/22/17 12:00 99.3 95 24 100/54 (69) 95 06/22/17 12:00 95 I/O 06/22/17 06/22/17 06/22/17 06/23/17 06/23/17 06/23/17 07:00 15:00 23:00 07:00 15:00 23:00 Intake Total 5350 ml 200 ml 1220 ml 1200 ml Output Total 600 ml 1550 ml 1250 ml Balance 4750 ml 200 ml -330 ml -50 ml Intake Oral 120 ml IV Total 5350 ml 200 ml 1100 ml 1200 ml Output Urine Total 650 ml 650 ml Gastric Drainage Total 500 ml 600 ml Emesis 600 ml 400 ml # Bowel Movements 1 Laboratory Laboratory Tests Test 06/22/17 12:18 06/22/17 12:23 06/22/17 18:40 06/22/17 23:50 Lactic Acid Level 3.2 3.5 Blood Urea Nitrogen 27 Creatinine 0.95 Random Glucose 253 Total Protein 4.8 Calcium Level 7.2 Sodium Level 140 Potassium Level 4.1 Chloride Level 105 Carbon Dioxide Level 25.9 Anion Gap 9 Estimat Glomerular Filtration Rate 79 Protein Corrected Calcium 8.5 C-Reactive Protein 17.40 Stool C. difficile Toxin (PCR) NEGATIVE Stl C. difficile Toxin Epiderm 027 PRESUMPTIVE NEGATIVE Test 06/23/17 00:33 06/23/17 05:42 Lactic Acid Level 5.1 1.8 White Blood Count 13.5 Red Blood Count 3.37 Hemoglobin 9.6 Hematocrit 29.2 Mean Corpuscular Volume 86.7 Mean Corpuscular Hemoglobin 28.6 Mean Corpuscular Hemoglobin Concent 32.9 Red Cell Distribution Width 17.7 Platelet Count 141 Mean Platelet Volume 8.5 Neutrophils (%) (Auto) 92.5 Lymphocytes (%) (Auto) 4.5 Monocytes (%) (Auto) 2.9 Eosinophils (%) (Auto) 0.0 Basophils (%) (Auto) 0.1 Neutrophils # (Auto) 12.5 Lymphocytes # (Auto) 0.6 Monocytes # (Auto) 0.4 Eosinophils # (Auto) 0.0 Basophils # (Auto) 0.0 CBC Comment DIFF FINAL Differential Comment Blood Urea Nitrogen 30 Creatinine 0.96 Random Glucose 177 Total Protein 5.0 Albumin 1.2 Calcium Level 7.0 Phosphorus Level 3.3 Magnesium Level 1.3 Alkaline Phosphatase 214 Aspartate Amino Transf (AST/SGOT) 7 Alanine Aminotransferase (ALT/SGPT) 9 Total Bilirubin 0.4 Sodium Level 141 Potassium Level 3.1 Chloride Level 106 Carbon Dioxide Level 28.5 Anion Gap 7 Estimat Glomerular Filtration Rate 78 Protein Corrected Calcium 8.1 Ammonia LESS THAN 10 Amylase Level 19 Lipase 32 Thyroid Stimulating Hormone 3rd Gen 1.610 Date/Time Source Procedure Growth Status 06/22/17 12:23 Blood Peripheral Aerobic Blood Culture - Preliminary NO GROWTH IN 1 DAY Resulted 06/22/17 12:23 Blood Peripheral Anaerobic Blood Culture - Preliminary NO GROWTH IN 1 DAY Resulted 06/22/17 04:20 Urine Catheterized Urine Urine Culture - Preliminary Oumou Albicans Resulted Imaging Last Impressions Chest X-Ray 06/22/17 0036 Signed Impressions: Service Date/Time: Thursday, June 22, 2017 00:48 - CONCLUSION: 1. Improved aeration and improving consolidation bilaterally. 2. Residual focal areas of bronchopneumonia or masses seen in the left mid and lower lung. Continued followup is recommended. 3. Calcified granuloma in the right upper lung. Forrest Doshi MD Abdomen/Pelvis CT 06/22/17 0036 Signed Impressions: Service Date/Time: Thursday, June 22, 2017 02:43 - CONCLUSION: 1. Bowel obstruction with an area of transition and narrowing in the distal transverse colon in the splenic flexure region. 2. Mild to moderate ascites. 3. Small subcentimeter hypodensities in the liver. These may represent cysts although they are nonspecific. 4. Bilateral pleural effusions being worse on the left. There are accompanying areas of atelectasis or consolidation the lung bases. Forrest Doshi MD Physical Exam HEENT: Normocephalic; atraumatic; no jaundice. CHEST: CTA CARDIAC: RRR ABDOMEN: Distended, slightly improved from yesterday, still with moderate diffuse tenderness; no hepatosplenomegaly; bowel sounds are hypoactive EXTREMITIES: Ble edema. SKIN: Normal; no rash; no jaundice. REJECT OPENER AND FILLER: No focal deficits; alert and oriented times three. (Caridad Bradford) Assessment and Plan Plan ASSESSMENT: - Bowel obstruction. CT Scan abdomen and pelvis (06/22/17)---> Bowel obstruction with an area of transition and narrowing in the distal transverse colon in splenic flexure region. Mild to moderate ascites. Small subcentimeter hypodensities in the liver, may represent cysts although they are nonspecific. Bilateral pleural effusions being worse on the left. There are accompanying areas of atelectasis or consolidation in the lung bases. Pt was recently hospitalized with Cdiff colitis and bowel obstruction secondary to splenic flexure from 05/25-06/02. Of note, US abdomen (05/27/17)---> discordant velocities in imaging findings, CTA may be of benefit. This was not done secondary to his renal impairment at the time. Colonoscopy (06/10/17)---> Changes most consistent with colitis probably of the ulcerative type involving left colon splenic flexure stricture benign appearing. Pathology noted transverse colon biopsy without significant histologic abnormality, splenic flexure biopsy acutely inflamed colonic mucosa and granulation tissues consistent with ulceration, descending colon polyp with colonic mucosa without significant histologic abnormality, sigmoid biopsy acute inflamed colonic mucosa and granulation tissue consistent with ulceration, rectum biopsy with acutely inflamed colonic mucosa and granulation tissue consistent with ulceration. He was started on Asacol HD 800mg po TID and a prednisone taper with 40mg po daily x 9 days, 30mg x 10 days, 20mg x 10 days, 10mg x 10 days, then 5mg x 10 days and then d/c. He improved on this up until two days ago when he developed worsening distention, nausea, vomiting, pain, and decreased stool output. NGT to LIWS, NPO. Abx. Stricture secondary to ulcerative colitis vs. ischemic colitis. GS following, pt is really not wanting total colectomy, hoping that he can have bowel resection. CTA pending to help differentiate between ischemic vs. U.C. If this is determined to be more U.C., then he may need CRS evaluation. NPO. NGT to LIWS. Flagyl, Zosyn. Oral Vanco. Await CTA. WBC 13.5. Lactic acid improved 1.8. KUB improved with findings consistent with improving partial small bowel obstruction. + BM. He does seem to be improving with IV steroids and abx. - Sepsis with bowel obstruction and recent hx of CDiff colitis. Check CDiff. Urine, blood cx pending. Vancomycin, Zosyn. Flagyl, Oral vanco. CDiff was negative, okay to d/c Oral Vanco. WBC 13.5. Lactic acid down to 1.8. - Anemia, normocytic. 9.6/29.2. - CMP, CHF, DM, Hyperlipidemia per attending. PLAN: - NPO - NGT to LIWS - CTA - D/C Oral Vanco (CDiff negative) - Cont. Steroids - Cont. Abx - GS following - Monitor labs - Supportive care - Await results of CTA. He does seem to be improving with IV steroids and abx ( + BM, improvement on KUB, improving lactic acid), if CTA does not identify any high grade stenosis, ? may need CRS evaluation for possible colectomy- pt is really not wanting to have colectomy, hoping for partial resection. - Further recommendations to follow based on results of above - Pt seen and examined by Dr. Perry and myself and this note is written on her behalf Addendum: CTA---> pneumoperitoneum worrisome for perforation of hollow viscus. No acute vascular findings. Plan is to go to OR with Dr. Soares (Bradford,Caridad Spangler Jun 23, 2017 11:57 Chloe Perry MD Jun 23, 2017 19:39
[2017-06-23] MEDS ORDERED: ROCURONIUM INJ 50 MG/5 ML SYRINGE IV PUSH ONE (12:00)
[2017-06-23] MEDS ORDERED: DEXAMETHASONE SOD PHOS 4 MG/ML VIAL IV ONE (12:00)
[2017-06-23] MEDS ORDERED: LIDOCAINE HCL 1% PF 5 ML SYRINGE OTHER ONE (12:00)
[2017-06-23] MEDS ORDERED: ONDANSETRON HCL 4 MG/2 ML VIAL IV PUSH ONE (12:00)
[2017-06-23] MEDS ORDERED: PHENYLEPH/NS 1000 MCG/10 ML SYR IV ONE (12:00)
[2017-06-23] MEDS ORDERED: ePHEDrine/NS 25 MG/5 ML SYR IV ONE (12:00)
[2017-06-23] MEDS ORDERED: PHENYLEPHRINE HCL 10 MG/ML VIAL IV ONE (12:00)
[2017-06-23] MEDS ORDERED: SODIUM CHLORIDE 0.9% 20 ML VIAL IV ONE (12:00)
[2017-06-23] MEDS ORDERED: NORMOSOL R INJ 3,000 ML IV ONE (12:00)
[2017-06-23] MEDS ORDERED: VECURONIUM BROMIDE 20 MG VIAL IV ONE (12:00)
[2017-06-23] MEDS ORDERED: LACTATED RINGER'S 1000 ML INJ 2,000 ML IV ONE (12:00)
[2017-06-23] MEDS ORDERED: PROPOFOL 200 MG/20 ML AMP IV ONE (12:00)
--- NOTE | 2017-06-23 13:04 | RADRPT ---
EXAM DATE/TIME: 06/23/2017 11:40 [facility] COMPARISON: CT ABDOMEN & PELVIS W CONTRAST, June 22, 2017, 2:43. ABDOMEN KUB ONLY, June 23, 2017, 10:13. INDICATIONS : Abdominal pain and vomiting IV CONTRAST: 80 cc Omnipaque 350 (iohexol) IV ORAL CONTRAST: No oral contrast ingested. RADIATION DOSE: 6.88 CTDIvol (mGy) MEDICAL HISTORY : Chronic obstructive pulmonary disease. Hypertension. Diabetes mellitus type 2. SURGICAL HISTORY : None. ENCOUNTER: Subsequent ACUITY: 2 days PAIN SCALE: 6/10 LOCATION: abdomen TECHNIQUE: Volumetric scanning was performed using a multi-row detector CT scanner. The data was post processed with a variety of visualization algorithms including full volume maximum intensity projection, multi -planar sliding thin slab reformation, curved planar reformation, and surface rendering techniques. Using automated exposure control and adjustment of the mA and/or kV according to patient size, radiat ion dose was kept as low as reasonably achievable to obtain optimal diagnostic quality images. DICOM format image data is available electronically for review and comparison. FINDINGS: The abdominal aorta is widely patent. The visualized iliacs are widely patent mild patchy atheroscler otic disease. Looking at the visceral vessels, the celiac and SMA are widely patent. The CAESAR is paten t. Widely patent single renal arteries are present bilaterally. In the pelvis, hypogastrics are paten t bilaterally. The common femoral arteries and visualized proximal thigh vessels are intact. Elsewhere on the exam, note is made of pneumoperitoneum on today's examination. I do not believe the patient has had surgery to account for this and therefore perforation is suspected. There is small vo lume ascites. Moderate bilateral pleural effusions with adjacent lung base atelectasis. The solid org ans are stable in appearance and there is persistent moderate diffuse fluid and gaseous distention of bowel loops throughout the abdomen and pelvis with suspected stricture in the splenic flexure region of colon. Small air-containing umbilical hernia. CONCLUSION: Pneumoperitoneum worrisome for perforation of hollow viscus. No acute vascular findings. Forrest Green MD on June 23, 2017 at 12:36 Board Certified Radiologist. This report was verified electronically.
[2017-06-23] MEDS ORDERED: BUPIVACAINE/EPINEPHRINE 0.25% PF 30 ML VIAL ONE (13:05)
[2017-06-23] MEDS ORDERED: THROMBIN (TOPICAL) 5,000 UNIT VIAL ONE (13:05)
[2017-06-23] MEDS ORDERED: GELFOAM SIZE 100 ONE (13:05)
[2017-06-23] MEDS ORDERED: VANCOMYCIN HCL 1000 MG VIAL ONE (13:07)
[2017-06-23] MEDS ORDERED: STERILE WATER FOR INJECTION 20 ML VIAL ONE (13:22)
[2017-06-23] MEDS ORDERED: PHARMACY ORDERED LAB ONE (13:45)
--- NOTE | 2017-06-23 14:35 | HHI.PR ---
Subjective Subjective Notes stable overnight lactate 1.8, no fevers, still with abdominal pain Objective Vitals/I&O Vital Signs Date Time Temp Pulse Resp B/P (MAP) Pulse Ox O2 Delivery O2 Flow Rate FiO2 06/23/17 08:33 96 Nasal Cannula 2.50 06/23/17 06:00 96 06/23/17 04:00 98.5 19 96/53 (67) Labs Laboratory Tests Test 06/22/17 18:40 06/22/17 23:50 06/23/17 00:33 06/23/17 05:42 Lactic Acid Level 3.5 5.1 1.8 Stool C. difficile Toxin (PCR) NEGATIVE Stl C. difficile Toxin Epiderm 027 PRESUMPTIVE NEGATIVE White Blood Count 13.5 Red Blood Count 3.37 Hemoglobin 9.6 Hematocrit 29.2 Mean Corpuscular Volume 86.7 Mean Corpuscular Hemoglobin 28.6 Mean Corpuscular Hemoglobin Concent 32.9 Red Cell Distribution Width 17.7 Platelet Count 141 Mean Platelet Volume 8.5 Neutrophils (%) (Auto) 92.5 Lymphocytes (%) (Auto) 4.5 Monocytes (%) (Auto) 2.9 Eosinophils (%) (Auto) 0.0 Basophils (%) (Auto) 0.1 Neutrophils # (Auto) 12.5 Lymphocytes # (Auto) 0.6 Monocytes # (Auto) 0.4 Eosinophils # (Auto) 0.0 Basophils # (Auto) 0.0 CBC Comment DIFF FINAL Differential Comment Blood Urea Nitrogen 30 Creatinine 0.96 Random Glucose 177 Total Protein 5.0 Albumin 1.2 Calcium Level 7.0 Phosphorus Level 3.3 Magnesium Level 1.3 Alkaline Phosphatase 214 Aspartate Amino Transf (AST/SGOT) 7 Alanine Aminotransferase (ALT/SGPT) 9 Total Bilirubin 0.4 Sodium Level 141 Potassium Level 3.1 Chloride Level 106 Carbon Dioxide Level 28.5 Anion Gap 7 Estimat Glomerular Filtration Rate 78 Protein Corrected Calcium 8.1 Ammonia LESS THAN 10 Amylase Level 19 Lipase 32 Thyroid Stimulating Hormone 3rd Gen 1.610 Date/Time Source Procedure Growth Status 06/22/17 12:23 Blood Peripheral Aerobic Blood Culture - Preliminary NO GROWTH IN 1 DAY Resulted 06/22/17 12:23 Blood Peripheral Anaerobic Blood Culture - Preliminary NO GROWTH IN 1 DAY Resulted 06/22/17 04:20 Urine Catheterized Urine Urine Culture - Preliminary Oumou Albicans Resulted Abdomen: Other (+ttp diffuse) A/P Assessment and Plan 66-year-old male who presents with colonic obstruction, concern for colonic stricture distal transverse. Positive fevers, questionable ischemic versus ulcerative colitis. CTa reviewed with perforation PLAN OR for ex lap, possible bowel resection, possible colostomy, possible vac discuss with patient in detail the need for surgical intervention I tried to call but was unable to reach her Michael Soares MD Jun 23, 2017 14:35
[2017-06-23] MEDS ORDERED: PIPERACIL-TAZO 3.375 GM PREMIX 50 ML IV SCH (15:15)
--- NOTE | 2017-06-23 15:15 | HHI.PR ---
Addendum to Inpatient Note Additional Information sp bowel perforation Now in OR cont zosyn add fluconazol will see in am dw Zulema Victoria MD Jun 23, 2017 15:15
[2017-06-23] MEDS ORDERED: PHENYLEPHRINE HCL 10 MG/ML VIAL ONE ×2 (16:05→17:38)
[2017-06-23] MEDS ORDERED: HYDROmorphone HCL PF 2 MG/ML VIAL ONE (17:39)
--- NOTE | 2017-06-23 19:55 | PD.PROCEDR ---
Procedure Note Procedure Centerline placement A time-out was completed verifying correct patient, procedure, site, positioning , and special equipment if applicable. The patient was placed in a dependent position appropriate for central line placement based on the vein to be cannulated. The patients right shoulder was prepped and draped in sterile fashion. 1% Lidocaine was used to anesthetize the surrounding skin area. A triple lumen 9-Ch[place] Cordis catheter was introduced into the the right subclavian vein using the Seldinger technique. The catheter was threaded smoothly over the guide wire and appropriate blood return was obtained. Each lumen of the catheter was evacuated of air and flushed with sterile saline. The catheter was then sutured in place to the skin and a sterile dressing applied. Perfusion to the extremity distal to the point of catheter insertion was checked and found to be adequate. Estimated Blood Loss: 1ml The patient tolerated the procedure well and there were no complications. Logan Mace MD Jun 23, 2017 19:55
[2017-06-23] MEDS ORDERED: fentaNYL DRIP 250 ML IV PRN (20:00)
--- NOTE | 2017-06-23 20:17 | RADRPT ---
EXAM DATE/TIME: 06/23/2017 20:04 [facility] COMPARISON: CHEST SINGLE AP, June 22, 2017, 0:48. INDICATIONS : Central line placement. MEDICAL HISTORY : Cardiovascular disease. Hypertension. Diabetes mellitus type 2. SURGICAL HISTORY : Pacemaker. ENCOUNTER: Initial ACUITY: 1 day PAIN SCORE: Non-responsive. LOCATION: Bilateral chest FINDINGS: A single view of the chest demonstrates bibasilar patchy densities greater left lower lobe. Endotrach eal tube with tip 7 cm above the jose. Right subclavian central line with tip in the SVC. No pneumo thorax. Left-sided pacemaker unchanged. Osseous structures are intact. CONCLUSION: 1. Adequate placement of right subclavian central line. 2. Bibasilar consolidation. Servando White MD on June 23, 2017 at 20:14 Board Certified Radiologist. This report was verified electronically.
--- NOTE | 2017-06-23 20:26 | HHI.PR ---
Immediate Post Op Note Procedure Date: Jun 23, 2017 Pre Op Diagnosis: perforated viscus Post Op Diagnosis: same Surgeon: Michael Soares MD Heavy Forging Machine Operator(s): Dr Sunil Latham Procedure: ex lap, TOR, partial colectomy, take down of splenic flexure, colostomy Findings: colon perforated near stricture, adhesions of stomach, small bowel and spleen to colon, sucus, free air Complications: none Specimen(s) removed: partial colectomy splenic flexure Estimated blood loss: 150 Anesthesia: General Drains: AFIA IVF ([id number]) Patient to: ISC Patient Condition: Critical Michael Soares MD Jun 23, 2017 20:26
[2017-06-23] MEDS: DONEPEZIL HCL 5 MG TAB PO SCH (20:53)
--- NOTE | 2017-06-23 21:05 | EKG ---
Date Performed: 06/23/2017 Time Performed: 13:29:00 PTAGE: 66 years EKG: Marked baseline artifact present ProbableSinus rhythm . Left axis deviation Inferior infarct - age undetermined Nonspecific ST T wave changes Abnormal ECG Unfortunately both EKGs have significant artifact which obscures interpretation and comparison. DOCTOR: Moises Sanchez Interpretating Date/Time 06/23/2017 21:04:18
[2017-06-23 22:46] LABS: POTASSIUM 3.6 MEQ/L (3.5-5.1)
[2017-06-23 23:06] LABS: CALCIUM-PROTEIN CORRECTED 7.8 MG/DL (8.5-10.1)
[2017-06-24] VITALS (17 sets, daily range): BP systolic 101–142; BP diastolic 50–60; PULSE 76–98; RESP 12–19; TEMP 97.2–98.6; O2SAT 91–100
[2017-06-24] MEDS: INSULIN NovoLIN REGULAR SUPPLEMENTAL SCALE SQ SCH ×6 (00:28→20:00)
[2017-06-24 00:57] LABS: MAGNESIUM 1.7 MG/DL (1.5-2.5)
[2017-06-24 00:58] LABS: VANCOMYCIN TROUGH 2.5 MCG/ML (5.0-10.0)
[2017-06-24] MEDS: RESP: ALBUTEROL 2.5 MG/3 ML NEB (PRN) NEB (00:59)
[2017-06-24] MEDS: SODIUM CHLOR 0.9% 1000 ML INJ 1,000 ML IV SCH (01:58)
[2017-06-24] MEDS: PIPERACIL-TAZO 4.5 GM PREMIX 100 ML IV SCH ×4 (02:07→20:38)
[2017-06-24 02:08] LABS: BLOOD GAS BASE EXCESS -4.9 mmol/L (-2-2); BLOOD GAS HCO3 21 mmol/L (22-26); BLOOD GAS METHEMOGLOBIN 0.7 % (0-2); BLOOD GAS O2 HGB SATURATION 89 % (90-100); BLOOD GAS OXYGEN CONTENT 12.3 Vol % (12.0-20.0); BLOOD GAS PCO2 49 mmHg (38-42); BLOOD GAS PO2 72 mmHg (61-120); BLOOD GAS TOTAL HGB 9.8 G/DL (12.0-16.0); TEMP CORR TO 98.6
[2017-06-24 02:15] LABS: CRITICAL VALUE YES; DRAW SITE LA; LITER FLOW 9 L/M; OXYGEN DEVICE SM
[2017-06-24 02:16] LABS: STAT NO
[2017-06-24] MEDS ORDERED: NOREPINEPHRINE-DEXTROSE DRIP 250 ML IV ONE (03:21)
[2017-06-24] MEDS ORDERED: NOREPINEPHRINE 4 MG/D5W 250 ML IV PRN (03:30)
[2017-06-24] MEDS ORDERED: SODIUM CHLOR 0.9% 1000 ML INJ 1,000 ML IV SCH (03:45)
[2017-06-24] MEDS: CHLORHEXIDINE GLUCONATE 2 % 1 PACK (2 CLOTHS) TOP SCH (04:00)
[2017-06-24 04:11] LABS: AUTOMATED NEUTROPHIL # 9.9 TH/MM3 (1.8-7.7); HEMATOCRIT 27.1 % (39.0-51.0); LYMPH % 2.4 % (9.0-44.0); LYMPHOCYTE # 0.2 TH/MM3 (1.0-4.8); MEAN CELL VOLUME 88.5 FL (80.0-100.0); MEAN CORPUSCULAR HEMOGLOBIN 28.7 PG (27.0-34.0); MEAN CORPUSCULAR HGB CONC 32.4 % (32.0-36.0); MONO % 2.4 % (0.0-8.0); NEUT % 95.2 % (16.0-70.0); PLATELET COUNT 98 TH/MM3 (150-450); RED BLOOD COUNT 3.07 MIL/MM3 (4.50-5.90); RED CELL DISTRIBUTION WIDTH 17.8 % (11.6-17.2); WHITE BLOOD COUNT 10.4 TH/MM3 (4.0-11.0)
[2017-06-24 04:14] LABS: HEMO FLAGS AUTO DIFF
[2017-06-24] MEDS: HYDROCORTISONE SOD SUCCINATE 100 MG VIAL IV PUSH SCH ×3 (05:05→18:23)
[2017-06-24] MEDS: MESALAMINE HD 800 MG DELAYED RELEASE TAB PO SCH ×3 (05:06→21:30)
[2017-06-24 05:11] LABS: BICARBONATE 23.6 MEQ/L (21.0-32.0); CALCIUM-PROTEIN CORRECTED 7.6 MG/DL (8.5-10.1); MAGNESIUM 1.6 MG/DL (1.5-2.5); POTASSIUM 3.5 MEQ/L (3.5-5.1); TOTAL BILIRUBIN ADULT 0.2 MG/DL (0.2-1.0)
[2017-06-24 05:35] LABS: BLOOD GAS BASE EXCESS -4.1 mmol/L (-2-2); BLOOD GAS CARBOXYHEMOGLOBIN 0.6 % (0-4); BLOOD GAS HCO3 22 mmol/L (22-26); BLOOD GAS METHEMOGLOBIN 1.3 % (0-2); BLOOD GAS O2 HGB SATURATION 95 % (90-100); BLOOD GAS OXYGEN CONTENT 14.2 Vol % (12.0-20.0); BLOOD GAS PCO2 47 mmHg (38-42); BLOOD GAS PO2 108 mmHg (61-120); BLOOD GAS TOTAL HGB 10.5 G/DL (12.0-16.0); TEMP CORR TO 98.6
[2017-06-24 05:36] LABS: CRITICAL VALUE YES; DRAW SITE ALINE; FIO2 50 %; OXYGEN DEVICE BIPAP; STAT NO; ULNAR PULSE PRESENT; VENT SETTINGS IPAP10/EPAP5
[2017-06-24] MEDS ORDERED: MAGNESIUM SULFATE INJ 4 GM in SODIUM CHLORIDE 0.9% INJ 92 ML IV PRN (07:00)
[2017-06-24] MEDS ORDERED: GLUCAGON 1 MG/ML VIAL OTHER PRN (07:00)
[2017-06-24] MEDS ORDERED: POTASSIUM CHLOR 40 MEQ PREMIX 100 ML IV ONE (07:00)
[2017-06-24] MEDS ORDERED: POTASSIUM PHOSPHATE MONOBASIC 500 MG TAB PO PRN (07:00)
[2017-06-24] MEDS ORDERED: POTASSIUM PHOSPHATE MONOBASIC 500 MG TAB PO/TUBE PRN (07:00)
[2017-06-24] MEDS ORDERED: POTASSIUM CHLOR 20 MEQ PREMIX 100 ML IV PRN (07:00)
[2017-06-24] MEDS ORDERED: ALBUMIN 5% INJ 500 ML IV ONE ×2 (07:00→13:30)
[2017-06-24] MEDS ORDERED: POTASSIUM PHOSPHATE INJ 30 MMOL in SODIUM CHLOR 0.9% 250 ML INJ 250 ML IV PRN (07:00)
[2017-06-24] MEDS ORDERED: POTASSIUM CHLOR 40 MEQ PREMIX 100 ML IV PRN (07:00)
[2017-06-24] MEDS ORDERED: MAGNESIUM OXIDE 400 MG TAB PO PRN (07:00)
[2017-06-24] MEDS ORDERED: CALCIUM GLUCONATE INJ 1 GM in SODIUM CHLORIDE 0.9% INJ 100 ML IV ONE (07:00)
[2017-06-24] MEDS ORDERED: POTASSIUM CHLORIDE 25 MEQ EFFERVESCENT TAB PO PRN (07:00)
[2017-06-24] MEDS ORDERED: SODIUM PHOSPHATE INJ 30 MMOL in SODIUM CHLOR 0.9% 250 ML INJ 240 ML IV PRN (07:00)
--- NOTE | 2017-06-24 07:07 | HHI.CCPN ---
Subjective Remarks/Hospital Course 66-year-old male currently residing at the rehabilitation facility comes in due to fever with low blood pressure, abdominal pain and vomiting. He has history of bowel obstruction in the past. He also was diagnosed with C. difficile. Per patient his abdominal pain never got any better since being in the hospital about a month ago. However, he does say that it has gotten worse recently. He vomited today. He says he continues to have diarrhea. He was found to be febrile. He denies chest pain or shortness of breath. He was admitted in the end of April for bowel obstruction and presented in similar fashion at that time. 06/22: Seen and examined. Currently not on vasopressors. Patient had a large emesis and "feels better" now. Abdomen distended. Patient states she doesn't have a local triage assistant. Pacemaker was "checked" prior to arriving here from [place] within the past several months. 06/23: Afebrile. Chief complaint of abdominal pain bilateral lower quadrants infraumbilical. One bowel movement documented however patient denies.. Very rare flatus. Plan for CT angiogram of the abdomen today Subjective 06/24: History status post exploratory lap, partial colectomy with takedown from the splenic flexure creation of colostomy secondary to perforated viscus, perforation at site of splenic flexure with lysis of adhesions from stomach, small bowel and splenic flexure adhered to colon.. Patient received 4500 cc crystalloid. EBL 150. 500 cc urine output. 100 cc NG tube. Patient was extubated overnight with central line placed. Currently on noninvasive ventilation remains acidotic. Will check chest x-ray this AM monitor volume status along with CVP. Pain appears controlled. Objective Vital Signs Date Time Temp Pulse Resp B/P (MAP) Pulse Ox O2 Delivery O2 Flow Rate FiO2 06/24/17 06:00 76 06/24/17 04:11 97 50 06/24/17 04:00 97.2 15 114/52 (72) 06/24/17 01:30 Bi-Pap 06/24/17 01:00 9.00 Intake and Output 06/24/17 06/24/17 06/25/17 08:00 16:00 00:00 Intake Total 2100 ml Output Total 967 ml Balance 1133 ml Result Diagram: 06/24/17 0355 06/24/17 0355 Other Results Microbiology Date/Time Source Procedure Growth Status 06/22/17 12:23 Blood Peripheral Aerobic Blood Culture - Preliminary NO GROWTH IN 1 DAY Resulted 06/22/17 12:23 Blood Peripheral Anaerobic Blood Culture - Preliminary NO GROWTH IN 1 DAY Resulted 06/22/17 04:20 Urine Catheterized Urine Urine Culture - Preliminary Oumou Albicans Resulted Imaging Last Impressions Chest X-Ray 06/23/17 0000 Signed Impressions: Service Date/Time: Friday, June 23, 2017 20:04 - CONCLUSION: 1. Adequate placement of right subclavian central line. 2. Bibasilar consolidation. Servando White MD Abdomen/Pelvis CT 06/23/17 0000 Signed Impressions: Service Date/Time: Friday, June 23, 2017 11:40 - CONCLUSION: Pneumoperitoneum worrisome for perforation of hollow viscus. No acute vascular findings. Forrest Green MD Abdomen X-Ray 06/23/17 0000 Signed Impressions: Service Date/Time: Friday, June 23, 2017 10:13 - CONCLUSION: 1. Findings consistent with improving partial small bowel obstruction. Maynor Shepard MD Objective Remarks GENERAL: 66-year-old male, resting in bed critically ill SKIN: Warm and dry. Well perfused HEAD: Atraumatic. Normocephalic. EYES: Pupils equal and round around 3 mm bilaterally and reactive. No scleral icterus. No injection or drainage. ENT: No nasal bleeding or discharge. Mucous membranes dry. NG tube in place in right nares NECK: Trachea midline. No JVD. CARDIOVASCULAR: RRR. S1, S2 no S4 without murmur RESPIRATORY: Clear to auscultation anteriorly. Few crackles patient bases bilaterally GASTROINTESTINAL: Abdomen midline incision is clean dry and intact. Right lower quadrant ostomy is pink with some brown stool noted. Right lower quadrant AFIA with 617cc SS out. Midline Venus drain/cover substernal to supraumbilical currently not functioning. General surgery aware MUSCULOSKELETAL: Extremities with trace lower extremity bilateral edema. No obvious deformities. NEUROLOGICAL: Awake and alert. RASS 0. No gross focal/sensory deficits. Follows commands in all 4 extremities. Urinary Catheter: Yes Assessment to: Continue Laguna insert reason: Prolonged Immobilization Vascular Central Line Catheter: Yes Assessment to: Continue Date of Insertion: Jun 23, 2017 Line: Central Venous Catheter Side: Right Location: Subclavian A/P Assessment and Plan Neuro/Psych: Acute toxic metabolic encephalopathy secondary to sepsis Dementia disorder NOS Depression NOS Peripheral neuropathy Currently holding donepezil 5 mg at night for dementia Acetaminophen (Ofirmev) IV 1 g every 8 hours when necessary for fever morphine sulfate 2-4 mg every 2 hours as needed for pain management Continue fluoxetine 40 mill grams daily and gabapentin 100 mg 3 times a day as clinically indicated CV: History of third-degree heart block - dual chambered pacemaker placed 04/11 currently in normal sinus rhythm History of Hypertension Lactic acidosis - resolved History of Atrial fibrillation currently normal sinus rhythm Holding carvedilol 3.125 mg twice a day lisinopril 2.5 mg daily light of hypotension Cardiology - Dr. Dunham has seen Currently normal saline 180 cc an hour Check CVP Norepinephrine drip to maintain mean artery pressure then 65 Will give crystalloid and colloid boluses pending on CVP findings Resp: Postoperative respiratory failure COPD Right upper lobe calcified granuloma Currently on BiPAP 04/30 at 50% goal greater than or equal to 92%. Recheck ABG and chest x-ray this AM Incentive spirometry while awake As needed albuterol aerosols every 2 hours when necessary dyspnea GI: Postop day #1. Exploratory Laparotomy, partial colectomy with takedown splenic flexure and colostomy placement secondary to perforated viscus, perforation at site of splenic flexure with lysis of adhesions from stomach, small bowel and spleen Dr. Soares Admission diagnosis Large bowel obstruction History of internal/external hemorrhoids UC Sigmoid/descending colonic ulcers Liver cysts Hypoalbuminemia Abdominal ascites CT abdomen/pelvis on admission revealed dilatation the small bowel. Ascending and transverse colon. Transition point the distal transverse colon. Collapsed descending colon. Cecum thickening. CT angiogram 06/23 revealed perforated viscus/pneumoperitoneum Last admission status post colonoscopy 2. Noted 05/27 unable to transverse sigmoid colon due to stricture. Unable to transverse transverse colon due to stricture 06/03. Sigmoid ulcers. C. difficile positive. Currently on mesalamine 800 mg 3 times a day prednisone 20 mg daily - currently on hydrocortisone 50 mg every 6 hours NG tube to LIWS. Minimal output overnight GI/general surgery consult. Dr. Soares Home medication famotidine 20 mg twice a day for GI prophylaxis. Currently IV Bolused albumin 1 today 5% 250 cc AFIA -617 cc ss right lower quadrant Today we will initiate TPN at 65 cc an hour with 20% lipids daily : Laguna catheter if indicated for accurate I's and O's in a critically ill patient Endo: IDDM Currently holding insulin detemir 20 night with novulin R sliding scale Will continue sliding scale insulin Novulin R every 4 hours high with Accu- Cheks to maintain euglycemia Add 20 units insulin to TPN Renal: Chronic kidney disease stage II 1.1 left renal cyst/tiny right infrarenal cyst Creatinine currently 1.0 Monitor urine output Accurate I's and O's Heme: Normocytic anemia Thrombocytopenia Monitor CBC daily. Follow trends Previous admission with thrombocytopenia likely secondary infection/DIC. No indications for transfusion of blood products at this time ID: History of C. difficile Funguria - asx She on metronidazole 500 mg every 8 hours and vancomycin 125 mg by mouth every 6 hours Infectious disease added piperacillin/tazobactam 4. g IV every 6 hours Appears to being treated with C. difficile. C. difficile negative this admission Blood cultures 2, no growth today. Culture 06/22 - C. albicans FEN: Hypokalemia Hypocalcemia Replacing electrolytes as clinically indicated 40 mEq KCl IV 1. 1 g calcium gluconate IV 1 today. MSK: Osteoarthritis Holding calcium carbonate/cholecalciferol 500 mg last 400 units 1 tablet twice a day. Resume when clinically indicated PT evaluate and treat Access -Right subclavian CVL placed 06/23 day #2 Prophylaxis - GI -famotidine - DVT - SCD/heparin subcutaneous held prior surgery Level III follow-up Yogi Perez MD Jun 24, 2017 07:07
[2017-06-24 08:05] LABS: SCAN/DIFF AUTO DIFF CONFIRMED
[2017-06-24 08:10] LABS: BLOOD GAS BASE EXCESS -6.5 mmol/L (-2-2); BLOOD GAS HCO3 19 mmol/L (22-26); BLOOD GAS METHEMOGLOBIN 0.5 % (0-2); BLOOD GAS O2 HGB SATURATION 89 % (90-100); BLOOD GAS OXYGEN CONTENT 10.6 Vol % (12.0-20.0); BLOOD GAS PCO2 38 mmHg (38-42); BLOOD GAS PO2 68 mmHg (61-120); BLOOD GAS TOTAL HGB 8.5 G/DL (12.0-16.0); CRITICAL VALUE YES; DRAW SITE ART LINE; LITER FLOW 9 L/M; NUMBER OF ARTERIAL PUNCTURES 0; OXYGEN DEVICE MASK; STAT NO; TEMP CORR TO 98.6; ULNAR PULSE PRESENT
[2017-06-24] MEDS: metroNIDAZOLE 500 MG INJ 100 ML IV SCH ×2 (08:15→16:46)
[2017-06-24] MEDS: GABAPENTIN 100 MG CAP PO SCH ×3 (08:16→18:23)
[2017-06-24] MEDS: FAMOTIDINE 20 MG/2 ML VIAL IV PUSH SCH ×2 (08:16→20:36)
[2017-06-24] MEDS: SODIUM CHLORIDE 0.9% FLUSH 10 ML FLUSH IV FLUSH SCH ×2 (08:16→20:36)
[2017-06-24] MEDS: ASCORBIC ACID 500 MG TAB PO SCH ×2 (08:16→20:36)
[2017-06-24] MEDS: FLUoxetine HCL 20 MG CAP PO SCH (08:16)
--- NOTE | 2017-06-24 09:21 | RADRPT ---
EXAM DATE/TIME: 06/24/2017 08:33 [facility] COMPARISON: CHEST SINGLE AP, June 22, 2017, 0:48. ABDOMEN KUB ONLY, June 23, 2017, 10:13. INDICATIONS : Respiratory failure. MEDICAL HISTORY : Cardiovascular disease. Hypertension Diabetes mellitus type II. SURGICAL HISTORY : Pacemaker. ENCOUNTER: Subsequent ACUITY: 2 days PAIN SCORE: 0/10 LOCATION: Bilateral chest FINDINGS: Pacemaker device is noted with control pack over the left chest. Nasogastric tube descends to the sto mach. Right subclavian central line is present good position. Bibasilar infiltrates are noted, left w orse than right. Cardiac contours are grossly unchanged. Pneumoperitoneum is seen in the right upper quadrant of the abdomen. CONCLUSION: Worsening basilar infiltrates Forrest Green MD on June 24, 2017 at 9:18 Board Certified Radiologist. This report was verified electronically.
[2017-06-24] MEDS: MORPHINE SULFATE 2 MG/ML INJ IV PUSH PRN ×2 (10:11→18:23)
[2017-06-24] MEDS ORDERED: BUMETANIDE INJ 1 MG/4 ML VIAL IV PUSH ONE (13:30)
[2017-06-24 15:17] LABS: BLOOD GAS BASE EXCESS -3.5 mmol/L (-2-2); BLOOD GAS HCO3 21 mmol/L (22-26); BLOOD GAS METHEMOGLOBIN 0.5 % (0-2); BLOOD GAS O2 HGB SATURATION 89 % (90-100); BLOOD GAS OXYGEN CONTENT 9.5 Vol % (12.0-20.0); BLOOD GAS PCO2 37 mmHg (38-42); BLOOD GAS PO2 63 mmHg (61-120); BLOOD GAS TOTAL HGB 7.6 G/DL (12.0-16.0); CRITICAL VALUE YES; DRAW SITE ART LINE; LITER FLOW 8 L/M; NUMBER OF ARTERIAL PUNCTURES 0; OXYGEN DEVICE MASK; TEMP CORR TO 98.6; ULNAR PULSE PRESENT
[2017-06-24 15:18] LABS: STAT NO
[2017-06-24] MEDS: FLUCONAZOLE 400 MG PREMIX BAG 200 ML IV SCH (15:47)
--- NOTE | 2017-06-24 15:59 | HHI.GIFU ---
Subjective Remarks Resting in bed. Went to OR yesterday for ex lap, TOR, partial colectomy, take down of splenic flexure, colostomy. On simple mask, respirations shallow, mildly labored. States pain controlled. Nurse reports that the drain has not been draining. Drsg d/i. Colostomy with liquid stool. (Caridad Bradford) Objective Vitals I&O Vital Signs Date Time Temp Pulse Resp B/P (MAP) Pulse Ox O2 Delivery O2 Flow Rate FiO2 06/24/17 14:00 82 06/24/17 12:00 98.1 82 12 128/60 (82) 100 06/24/17 12:00 84 06/24/17 10:00 78 06/24/17 08:32 91 Simple Mask 9.00 06/24/17 08:00 80 06/24/17 08:00 97.7 82 14 101/53 (69) 97 06/24/17 07:00 96 Simple Mask 9.00 06/24/17 06:00 76 06/24/17 04:11 97 50 06/24/17 04:00 97.2 76 15 114/52 (72) 100 06/24/17 04:00 76 06/24/17 03:44 78 94/48 06/24/17 02:00 86 06/24/17 01:30 96 Bi-Pap 50 06/24/17 01:00 90 Simple Mask 9.00 06/24/17 00:50 98 Nasal Cannula 4 06/24/17 00:50 90 Nasal Cannula 4.00 06/24/17 00:34 100 50 06/24/17 00:00 86 06/24/17 00:00 98.6 98 19 110/50 (70) 96 06/24/17 00:00 50 06/23/17 22:53 100 Ventilator 06/23/17 22:50 Nasal Cannula 50 06/23/17 22:50 100 50 06/23/17 22:45 50 06/23/17 22:00 94 06/23/17 21:00 60 06/23/17 21:00 95 Mechanical Ventilator 60 06/23/17 20:21 94 Ventilator 06/23/17 20:00 50 06/23/17 20:00 97.6 98 19 116/68 (84) 96 Automatic Cuff 06/23/17 20:00 99 06/23/17 19:20 94 60 06/23/17 19:00 90 Mechanical Ventilator 50 06/23/17 18:30 98.9 96 20 109/64 (79) 100 06/23/17 18:00 91 I/O 06/23/17 06/23/17 06/23/17 06/24/17 06/24/17 06/24/17 07:00 15:00 23:00 07:00 15:00 23:00 Intake Total 1200 ml 5137 ml 2100 ml 704 ml Output Total 1250 ml 975 ml 967 ml Balance -50 ml 4162 ml 1133 ml 704 ml Intake Oral 120 ml IV Total 1200 ml 517 ml 2100 ml 704 ml Other 4500 ml Output Urine Total 650 ml 700 ml 425 ml Stool Total 50 ml Gastric Drainage Total 600 ml 0 ml Drainage Total 125 ml 492 ml Estimated Blood Loss 150 ml # Bowel Movements 1 4 0 Laboratory Laboratory Tests Test 06/23/17 20:20 06/23/17 20:26 06/24/17 01:10 06/24/17 03:55 Blood Urea Nitrogen 27 29 Creatinine 0.89 1.11 Random Glucose 219 235 Total Protein 4.1 4.1 Calcium Level 6.3 6.1 Sodium Level 142 144 Potassium Level 3.6 3.5 Chloride Level 108 110 Carbon Dioxide Level 26.0 23.6 Anion Gap 8 10 Estimat Glomerular Filtration Rate 85 66 Protein Corrected Calcium 7.8 7.6 Magnesium Level 1.7 1.6 Vancomycin Level Trough 2.5 Lactic Acid Level 1.1 1.0 Blood Gas Puncture Site LA Blood Gas Patient Temperature 98.6 Blood Gas HCO3 21 Blood Gas Base Excess -4.9 Blood Gas Oxygen Saturation 89 Arterial Blood pH 7.26 Arterial Blood Partial Pressure CO2 49 Arterial Blood Partial Pressure O2 72 Arterial Blood Oxygen Content 12.3 Arterial Blood Carboxyhemoglobin 0.0 Arterial Blood Methemoglobin 0.7 Blood Gas Hemoglobin 9.8 Oxygen Delivery Device SM Blood Gas Liter Flow 9 White Blood Count 10.4 Red Blood Count 3.07 Hemoglobin 8.8 Hematocrit 27.1 Mean Corpuscular Volume 88.5 Mean Corpuscular Hemoglobin 28.7 Mean Corpuscular Hemoglobin Concent 32.4 Red Cell Distribution Width 17.8 Platelet Count 98 Mean Platelet Volume 8.5 Neutrophils (%) (Auto) 95.2 Lymphocytes (%) (Auto) 2.4 Monocytes (%) (Auto) 2.4 Eosinophils (%) (Auto) 0.0 Basophils (%) (Auto) 0.0 Neutrophils # (Auto) 9.9 Lymphocytes # (Auto) 0.2 Monocytes # (Auto) 0.3 Eosinophils # (Auto) 0.0 Basophils # (Auto) 0.0 CBC Comment AUTO DIFF Differential Comment AUTO DIFF CONFIRMED Albumin 1.1 Phosphorus Level 4.7 Alkaline Phosphatase 118 Aspartate Amino Transf (AST/SGOT) 6 Alanine Aminotransferase (ALT/SGPT) 6 Total Bilirubin 0.2 Test 06/24/17 05:10 06/24/17 08:00 06/24/17 15:05 Blood Gas Puncture Site THOMAS ART LINE ART LINE Blood Gas Patient Temperature 98.6 98.6 98.6 Blood Gas HCO3 22 19 21 Blood Gas Base Excess -4.1 -6.5 -3.5 Blood Gas Oxygen Saturation 95 89 89 Arterial Blood pH 7.28 7.31 7.37 Arterial Blood Partial Pressure CO2 47 38 37 Arterial Blood Partial Pressure O2 108 68 63 Arterial Blood Oxygen Content 14.2 10.6 9.5 Arterial Blood Carboxyhemoglobin 0.6 0.0 0.0 Arterial Blood Methemoglobin 1.3 0.5 0.5 Blood Gas Hemoglobin 10.5 8.5 7.6 Oxygen Delivery Device BIPAP MASK MASK Blood Gas Ventilator Setting IPAP10/EPAP5 Blood Gas Inspired Oxygen 50 Blood Gas Liter Flow 9 8 Date/Time Source Procedure Growth Status 06/22/17 12:23 Blood Peripheral Aerobic Blood Culture - Preliminary NO GROWTH IN 2 DAYS Resulted 06/22/17 12:23 Blood Peripheral Anaerobic Blood Culture - Preliminary NO GROWTH IN 2 DAYS Resulted 06/22/17 04:20 Urine Catheterized Urine Urine Culture - Final Oumou Albicans Complete Imaging Last Impressions Chest X-Ray 06/24/17 0000 Signed Impressions: Service Date/Time: Saturday, June 24, 2017 08:33 - CONCLUSION: Worsening basilar infiltrates Forrest Green MD Abdomen/Pelvis CT 06/23/17 0000 Signed Impressions: Service Date/Time: Friday, June 23, 2017 11:40 - CONCLUSION: Pneumoperitoneum worrisome for perforation of hollow viscus. No acute vascular findings. Forrest Green MD Abdomen X-Ray 06/23/17 0000 Signed Impressions: Service Date/Time: Friday, June 23, 2017 10:13 - CONCLUSION: 1. Findings consistent with improving partial small bowel obstruction. Maynor Shepard MD Physical Exam HEENT: Normocephalic; atraumatic; no jaundice. CHEST: CTA CARDIAC: Resp. shallow, mildly labored. Course breath sounds with bibasilar crackles. ABDOMEN: Mildly distended, diffuse tenderness, midline incision line, colostomy with liquid stool EXTREMITIES: Ble edema. SKIN: Normal; no rash; no jaundice. HEMODIALYSIS RN: No focal deficits; lethargic and oriented times three. (Caridad Bradford) Assessment and Plan Plan ASSESSMENT: - Bowel obstruction. CT Scan abdomen and pelvis (06/22/17)---> Bowel obstruction with an area of transition and narrowing in the distal transverse colon in splenic flexure region. Mild to moderate ascites. Small subcentimeter hypodensities in the liver, may represent cysts although they are nonspecific. Bilateral pleural effusions being worse on the left. There are accompanying areas of atelectasis or consolidation in the lung bases. Pt was recently hospitalized with Cdiff colitis and bowel obstruction secondary to splenic flexure from 05/25-06/02. Of note, US abdomen (05/27/17)---> discordant velocities in imaging findings, CTA may be of benefit. This was not done secondary to his renal impairment at the time. Colonoscopy (06/10/17)---> Changes most consistent with colitis probably of the ulcerative type involving left colon splenic flexure stricture benign appearing. Pathology noted transverse colon biopsy without significant histologic abnormality, splenic flexure biopsy acutely inflamed colonic mucosa and granulation tissues consistent with ulceration, descending colon polyp with colonic mucosa without significant histologic abnormality, sigmoid biopsy acute inflamed colonic mucosa and granulation tissue consistent with ulceration, rectum biopsy with acutely inflamed colonic mucosa and granulation tissue consistent with ulceration. He was started on Asacol HD 800mg po TID and a prednisone taper with 40mg po daily x 9 days, 30mg x 10 days, 20mg x 10 days, 10mg x 10 days, then 5mg x 10 days and then d/c. He improved on this up until two days ago when he developed worsening distention, nausea, vomiting, pain, and decreased stool output. NGT to LIWS, NPO. Abx. Stricture secondary to ulcerative colitis vs. ischemic colitis. CTA (06/23/17)----> Pneumoperitoneum worrisome for perforation of hollow viscus. No acute vascular findings. S/P Exp. Lap., TOR, partial colectomy, take down of splenic flexure, colostomy (06/23/17)----> Colon perforated near stricture, adhesions of stomach, small bowel and spleen to colon, sucus, free air. GS following. TPN, Diflucan, Flagyl, Zosyn. Steroids. Asacol. - Pneumoperitoneum. S/P surgery as above. Per GS. - Sepsis with bowel obstruction and recent hx of CDiff colitis. CDiff negative. Urine, blood cx no growth 2 days. Vancomycin, Zosyn. Flagyl, Diflucan. CDiff was negative, okay to d/c Oral Vanco. WBC 10.4. Lactic acid down to 1.8. - Anemia, normocytic. 8.8/27.1. - CMP, CHF, DM, Hyperlipidemia per attending. PLAN: - NPO - NGT to LIWS - TPN - Cont. Steroids - Cont. Abx - GS following - S/P Exp. Lap., TOR, partial colectomy, take down of splenic flexure, colostomy (06/23/17 - Further recommendations to follow based on results of above - Pt seen and examined by Dr. Perry and myself and this note is written on her behalf (Caridad Bradford) Caridad Bradford Jun 24, 2017 15:59 Chloe Perry MD Jun 24, 2017 20:13
[2017-06-24] MEDS: RESP: ALBUTEROL 2.5 MG/IPRATROPIUM 0.5 MG NEB (SCH) NEB ×2 (16:00→17:34)
--- NOTE | 2017-06-24 16:25 | HHI.PR ---
Subjective Subjective Notes Resting in bed Eyes closed; comfortable Objective Vitals/I&O Vital Signs Date Time Temp Pulse Resp B/P (MAP) Pulse Ox O2 Delivery O2 Flow Rate FiO2 06/24/17 14:00 82 06/24/17 12:00 98.1 12 128/60 (82) 100 06/24/17 08:32 Simple Mask 9.00 06/24/17 04:11 50 Labs Laboratory Tests Test 06/23/17 20:20 06/23/17 20:26 06/24/17 01:10 06/24/17 03:55 Blood Urea Nitrogen 27 29 Creatinine 0.89 1.11 Random Glucose 219 235 Total Protein 4.1 4.1 Calcium Level 6.3 6.1 Sodium Level 142 144 Potassium Level 3.6 3.5 Chloride Level 108 110 Carbon Dioxide Level 26.0 23.6 Anion Gap 8 10 Estimat Glomerular Filtration Rate 85 66 Protein Corrected Calcium 7.8 7.6 Magnesium Level 1.7 1.6 Vancomycin Level Trough 2.5 Lactic Acid Level 1.1 1.0 Blood Gas Puncture Site LA Blood Gas Patient Temperature 98.6 Blood Gas HCO3 21 Blood Gas Base Excess -4.9 Blood Gas Oxygen Saturation 89 Arterial Blood pH 7.26 Arterial Blood Partial Pressure CO2 49 Arterial Blood Partial Pressure O2 72 Arterial Blood Oxygen Content 12.3 Arterial Blood Carboxyhemoglobin 0.0 Arterial Blood Methemoglobin 0.7 Blood Gas Hemoglobin 9.8 Oxygen Delivery Device SM Blood Gas Liter Flow 9 White Blood Count 10.4 Red Blood Count 3.07 Hemoglobin 8.8 Hematocrit 27.1 Mean Corpuscular Volume 88.5 Mean Corpuscular Hemoglobin 28.7 Mean Corpuscular Hemoglobin Concent 32.4 Red Cell Distribution Width 17.8 Platelet Count 98 Mean Platelet Volume 8.5 Neutrophils (%) (Auto) 95.2 Lymphocytes (%) (Auto) 2.4 Monocytes (%) (Auto) 2.4 Eosinophils (%) (Auto) 0.0 Basophils (%) (Auto) 0.0 Neutrophils # (Auto) 9.9 Lymphocytes # (Auto) 0.2 Monocytes # (Auto) 0.3 Eosinophils # (Auto) 0.0 Basophils # (Auto) 0.0 CBC Comment AUTO DIFF Differential Comment AUTO DIFF CONFIRMED Albumin 1.1 Phosphorus Level 4.7 Alkaline Phosphatase 118 Aspartate Amino Transf (AST/SGOT) 6 Alanine Aminotransferase (ALT/SGPT) 6 Total Bilirubin 0.2 Test 06/24/17 05:10 06/24/17 08:00 06/24/17 15:05 Blood Gas Puncture Site THOMAS ART LINE ART LINE Blood Gas Patient Temperature 98.6 98.6 98.6 Blood Gas HCO3 22 19 21 Blood Gas Base Excess -4.1 -6.5 -3.5 Blood Gas Oxygen Saturation 95 89 89 Arterial Blood pH 7.28 7.31 7.37 Arterial Blood Partial Pressure CO2 47 38 37 Arterial Blood Partial Pressure O2 108 68 63 Arterial Blood Oxygen Content 14.2 10.6 9.5 Arterial Blood Carboxyhemoglobin 0.6 0.0 0.0 Arterial Blood Methemoglobin 1.3 0.5 0.5 Blood Gas Hemoglobin 10.5 8.5 7.6 Oxygen Delivery Device BIPAP MASK MASK Blood Gas Ventilator Setting IPAP10/EPAP5 Blood Gas Inspired Oxygen 50 Blood Gas Liter Flow 9 8 Date/Time Source Procedure Growth Status 06/22/17 12:23 Blood Peripheral Aerobic Blood Culture - Preliminary NO GROWTH IN 2 DAYS Resulted 06/22/17 12:23 Blood Peripheral Anaerobic Blood Culture - Preliminary NO GROWTH IN 2 DAYS Resulted 06/22/17 04:20 Urine Catheterized Urine Urine Culture - Final Oumou Albicans Complete Cardiovascular: Regular Lungs: Clear Abdomen: Other (midline incision with MARCIE in place; colostomy edematous but fuctioning; AFIA with cloudy serous fluid ) Extremities: Other (mild generalized edema ) A/P Assessment and Plan 66 year old male POD1 exlap; TOR; partial colectomy, takedown of splenic flexure , colostomy -NPO -Continue antibiotics---Zosyn/Flagyl/Diflucan -IVF -TPN to start tonight -Continue routine AFIA care Attending Statement patient seen at bedside continue abx s/p exploration with ostomy for perf viscus ng sxn tpn Attestation The exam, history, and the medical decision-making described in the above note were completed with the assistance of the mid-level provider. I reviewed and agree with the findings presented. I attest that I had a [id number] encounter with the patient on the same day, and personally performed and documented my assessment and findings in the medical record. Marianne Torres Jun 24, 2017 16:25 Michael Soares MD Jun 29, 2017 05:03
--- NOTE | 2017-06-24 17:49 | HHI.IDPN ---
Subjective Subjective Remarks sp emergent surgery yday for small bowell perforation sp small bowell resection colostomy placement Antibiotics zosyn metronidazole Allergies: Coded Allergies: No Known Allergies (Unverified Adverse Reaction, Unknown, 05/25/17) Objective . Vital Signs Date Time Temp Pulse Resp B/P (MAP) Pulse Ox O2 Delivery O2 Flow Rate FiO2 06/24/17 16:00 84 06/24/17 16:00 97.8 84 18 142/54 (83) 96 06/24/17 14:00 82 06/24/17 12:00 98.1 82 12 128/60 (82) 100 06/24/17 12:00 84 06/24/17 10:00 78 06/24/17 08:32 91 Simple Mask 9.00 06/24/17 08:00 80 06/24/17 08:00 97.7 82 14 101/53 (69) 97 06/24/17 07:00 96 Simple Mask 9.00 06/24/17 06:00 76 06/24/17 04:11 97 50 06/24/17 04:00 97.2 76 15 114/52 (72) 100 06/24/17 04:00 76 06/24/17 03:44 78 94/48 06/24/17 02:00 86 06/24/17 01:30 96 Bi-Pap 50 06/24/17 01:00 90 Simple Mask 9.00 06/24/17 00:50 98 Nasal Cannula 4 06/24/17 00:50 90 Nasal Cannula 4.00 06/24/17 00:34 100 50 06/24/17 00:00 86 06/24/17 00:00 98.6 98 19 110/50 (70) 96 06/24/17 00:00 50 06/23/17 22:53 100 Ventilator 06/23/17 22:50 Nasal Cannula 50 06/23/17 22:50 100 50 06/23/17 22:45 50 06/23/17 22:00 94 06/23/17 21:00 60 06/23/17 21:00 95 Mechanical Ventilator 60 06/23/17 20:21 94 Ventilator 06/23/17 20:00 50 06/23/17 20:00 97.6 98 19 116/68 (84) 96 Automatic Cuff 06/23/17 20:00 99 06/23/17 19:20 94 60 06/23/17 19:00 90 Mechanical Ventilator 50 06/23/17 18:30 98.9 96 20 109/64 (79) 100 06/23/17 18:00 91 06/24/17 06/24/17 06/25/17 15:00 23:00 07:00 Intake Total 704 ml 248 ml Balance 704 ml 248 ml IV Total 704 ml 248 ml . Laboratory Tests Test 06/23/17 05:42 06/24/17 03:55 White Blood Count 13.5 TH/MM3 10.4 TH/MM3 Red Blood Count 3.37 MIL/MM3 3.07 MIL/MM3 Hemoglobin 9.6 GM/DL 8.8 GM/DL Hematocrit 29.2 % 27.1 % Mean Corpuscular Volume 86.7 FL 88.5 FL Mean Corpuscular Hemoglobin 28.6 PG 28.7 PG Mean Corpuscular Hemoglobin Concent 32.9 % 32.4 % Red Cell Distribution Width 17.7 % 17.8 % Platelet Count 141 TH/MM3 98 TH/MM3 Mean Platelet Volume 8.5 FL 8.5 FL Neutrophils (%) (Auto) 92.5 % 95.2 % Lymphocytes (%) (Auto) 4.5 % 2.4 % Monocytes (%) (Auto) 2.9 % 2.4 % Eosinophils (%) (Auto) 0.0 % 0.0 % Basophils (%) (Auto) 0.1 % 0.0 % Neutrophils # (Auto) 12.5 TH/MM3 9.9 TH/MM3 Lymphocytes # (Auto) 0.6 TH/MM3 0.2 TH/MM3 Monocytes # (Auto) 0.4 TH/MM3 0.3 TH/MM3 Eosinophils # (Auto) 0.0 TH/MM3 0.0 TH/MM3 Basophils # (Auto) 0.0 TH/MM3 0.0 TH/MM3 CBC Comment DIFF FINAL AUTO DIFF Differential Comment AUTO DIFF CONFIRMED Laboratory Tests Test 06/22/17 18:40 06/23/17 00:33 06/23/17 05:42 06/23/17 20:20 Lactic Acid Level 3.5 mmol/L 5.1 mmol/L 1.8 mmol/L Blood Urea Nitrogen 30 MG/DL 27 MG/DL Creatinine 0.96 MG/DL 0.89 MG/DL Random Glucose 177 MG/DL 219 MG/DL Total Protein 5.0 GM/DL 4.1 GM/DL Albumin 1.2 GM/DL Calcium Level 7.0 MG/DL 6.3 MG/DL Phosphorus Level 3.3 MG/DL Magnesium Level 1.3 MG/DL 1.7 MG/DL Alkaline Phosphatase 214 U/L Aspartate Amino Transf (AST/SGOT) 7 U/L Alanine Aminotransferase (ALT/SGPT) 9 U/L Total Bilirubin 0.4 MG/DL Sodium Level 141 MEQ/L 142 MEQ/L Potassium Level 3.1 MEQ/L 3.6 MEQ/L Chloride Level 106 MEQ/L 108 MEQ/L Carbon Dioxide Level 28.5 MEQ/L 26.0 MEQ/L Anion Gap 7 MEQ/L 8 MEQ/L Estimat Glomerular Filtration Rate 78 ML/MIN 85 ML/MIN Protein Corrected Calcium 8.1 MG/DL 7.8 MG/DL Ammonia LESS THAN 10 MCMOL/L Amylase Level 19 U/L Lipase 32 U/L Thyroid Stimulating Hormone 3rd Gen 1.610 uIU/ML Test 06/23/17 20:26 06/24/17 03:55 06/24/17 16:15 Lactic Acid Level 1.1 mmol/L 1.0 mmol/L 0.6 mmol/L Blood Urea Nitrogen 29 MG/DL Creatinine 1.11 MG/DL Random Glucose 235 MG/DL Total Protein 4.1 GM/DL Albumin 1.1 GM/DL Calcium Level 6.1 MG/DL Phosphorus Level 4.7 MG/DL Magnesium Level 1.6 MG/DL Alkaline Phosphatase 118 U/L Aspartate Amino Transf (AST/SGOT) 6 U/L Alanine Aminotransferase (ALT/SGPT) 6 U/L Total Bilirubin 0.2 MG/DL Sodium Level 144 MEQ/L Potassium Level 3.5 MEQ/L Chloride Level 110 MEQ/L Carbon Dioxide Level 23.6 MEQ/L Anion Gap 10 MEQ/L Estimat Glomerular Filtration Rate 66 ML/MIN Protein Corrected Calcium 7.6 MG/DL Microbiology Date/Time Source Procedure Growth Status 06/22/17 12:23 Blood Peripheral Aerobic Blood Culture - Preliminary NO GROWTH IN 2 DAYS Resulted 06/22/17 12:23 Blood Peripheral Anaerobic Blood Culture - Preliminary NO GROWTH IN 2 DAYS Resulted 06/22/17 12:18 Blood Peripheral Aerobic Blood Culture - Preliminary NO GROWTH IN 2 DAYS Resulted 06/22/17 12:18 Blood Peripheral Anaerobic Blood Culture - Preliminary NO GROWTH IN 2 DAYS Resulted 06/22/17 00:46 Blood Peripheral Aerobic Blood Culture - Preliminary NO GROWTH IN 2 DAYS Resulted 06/22/17 00:46 Blood Peripheral Anaerobic Blood Culture - Preliminary NO GROWTH IN 2 DAYS Resulted 06/22/17 00:42 Blood Peripheral Aerobic Blood Culture - Preliminary NO GROWTH IN 2 DAYS Resulted 06/22/17 00:42 Blood Peripheral Anaerobic Blood Culture - Preliminary NO GROWTH IN 2 DAYS Resulted 06/22/17 04:20 Urine Catheterized Urine Urine Culture - Final Oumou Albicans Complete Imaging Last Impressions Chest X-Ray 06/24/17 0000 Signed Impressions: Service Date/Time: Saturday, June 24, 2017 08:33 - CONCLUSION: Worsening basilar infiltrates Forrest Green MD Abdomen/Pelvis CT 06/23/17 0000 Signed Impressions: Service Date/Time: Friday, June 23, 2017 11:40 - CONCLUSION: Pneumoperitoneum worrisome for perforation of hollow viscus. No acute vascular findings. Forrest Green MD Abdomen X-Ray 06/23/17 0000 Signed Impressions: Service Date/Time: Friday, June 23, 2017 10:13 - CONCLUSION: 1. Findings consistent with improving partial small bowel obstruction. Maynor Shepard MD Physical Exam CONSTITUTIONAL/GENERAL: This is an adequately nourished patient, in no apparent distress. TUBES/LINES/DRAINS: SKIN: No jaundice, rashes, or lesions. Skin temperature appropriate. Not diaphoretic. EYES: Pupils equal and round and reactive. Extraocular motions intact. No scleral icterus. No injection or drainage. Fundi not examined. CARDIOVASCULAR: Regular rate and rhythm without murmurs, gallops, or rubs. No JVD. Peripheral pulses symmetric. Pacer in place L chest RESPIRATORY/CHEST: Symmetric, unlabored respirations. B/l rhonchi to auscultation. Breath sounds equal bilaterally. GASTROINTESTINAL: Abdomen post op, + distended. Stoma in place pink, witjh mild serosang d/c GENITOURINARY: Without palpable bladder distension. Laguna catheter in place. MUSCULOSKELETAL: Extremities with prominent clubbing, no edema. No joint tenderness or effusion noted. No calf tenderness. No mottling or clubbing. NEUROLOGICAL: lethargic PSYCHIATRIC: unable to assess Assessment & Plan Remarks Bowel obstruction, recurrent with acute perforation and fecal peritonitis - sp emergent surgery - path P but no pseudomembaranes - stricture was discovered in op Recent C.diff Hypoxia, effusions ? ARDS High risk for surgery per cardiac eval Fuguria, C/ albicans cont zosyn cont fluconazole dc flagyl Discussed Condition With Zulema Edwards MD Jun 24, 2017 17:49
[2017-06-24 17:54] LABS: BICARBONATE 24.7 MEQ/L (21.0-32.0); MAGNESIUM 1.6 MG/DL (1.5-2.5); POTASSIUM 3.1 MEQ/L (3.5-5.1)
[2017-06-24 18:14] LABS: CALCIUM-PROTEIN CORRECTED 7.8 MG/DL (8.5-10.1)
[2017-06-24] MEDS: MULTIVITAMIN INJ 10 ML, FOLIC ACID INJ 1 MG, INSULIN HUMAN REGULAR INJ 30 UNITS in AMIN... IV-CENTRAL SCH (20:35)
[2017-06-24] MEDS: DONEPEZIL HCL 5 MG TAB PO SCH (20:36)
[2017-06-24] MEDS: POTASSIUM CHLOR 40 MEQ PREMIX 100 ML IV PRN (20:37)
[2017-06-24] MEDS: FAT EMULSION 20% INJ 250 ML (Daily over 8 hours) IV-CENTRAL SCH (20:37)
[2017-06-25] VITALS (19 sets, daily range): BP systolic 101–125; BP diastolic 56–65; PULSE 82–105; RESP 14–24; TEMP 98–98.6; O2SAT 87–97
[2017-06-25] MEDS: MORPHINE SULFATE 2 MG/ML INJ IV PUSH PRN ×4 (00:04→14:00)
[2017-06-25] MEDS: HYDROCORTISONE SOD SUCCINATE 100 MG VIAL IV PUSH SCH ×4 (00:04→21:33)
[2017-06-25] MEDS: RESP: ALBUTEROL 2.5 MG/IPRATROPIUM 0.5 MG NEB (SCH) NEB ×6 (00:07→20:47)
[2017-06-25] MEDS: CHLORHEXIDINE GLUCONATE 2 % 1 PACK (2 CLOTHS) TOP SCH (00:29)
[2017-06-25] MEDS: INSULIN NovoLIN REGULAR SUPPLEMENTAL SCALE SQ SCH ×6 (00:44→20:00)
[2017-06-25] MEDS: PIPERACIL-TAZO 4.5 GM PREMIX 100 ML IV SCH ×4 (01:23→19:55)
[2017-06-25] MEDS: MESALAMINE HD 800 MG DELAYED RELEASE TAB PO SCH ×3 (05:11→21:33)
[2017-06-25 05:38] LABS: AUTOMATED NEUTROPHIL # 11.4 TH/MM3 (1.8-7.7); BASOPHIL % 0.1 % (0.0-2.0); EOSINOPHIL % 0.1 % (0.0-4.0); HEMATOCRIT 22.1 % (39.0-51.0); LYMPH % 2.9 % (9.0-44.0); LYMPHOCYTE # 0.3 TH/MM3 (1.0-4.8); MEAN CELL VOLUME 87.7 FL (80.0-100.0); MEAN CORPUSCULAR HEMOGLOBIN 27.7 PG (27.0-34.0); MEAN CORPUSCULAR HGB CONC 31.5 % (32.0-36.0); MONO % 1.8 % (0.0-8.0); NEUT % 95.1 % (16.0-70.0); PLATELET COUNT 63 TH/MM3 (150-450); RED BLOOD COUNT 2.52 MIL/MM3 (4.50-5.90); RED CELL DISTRIBUTION WIDTH 17.6 % (11.6-17.2)
[2017-06-25 05:47] LABS: HEMO FLAGS AUTO DIFF
[2017-06-25 06:04] LABS: ANION GAP 11 MEQ/L (5-15)
[2017-06-25 06:07] LABS: ALKALINE PHOSPHATASE 129 U/L (45-117); ALT (GPT) LESS THAN 6 U/L (12-78); AST (GOT) 8 U/L (15-37); BICARBONATE 22.1 MEQ/L (21.0-32.0); BLOOD UREA NITROGEN 29 MG/DL (7-18); CALCIUM-PROTEIN CORRECTED 7.9 MG/DL (8.5-10.1); CHLORIDE 111 MEQ/L (98-107); GLOMERULAR FILTRATION RATE 63 ML/MIN (>89); MAGNESIUM 1.7 MG/DL (1.5-2.5); POTASSIUM 3.3 MEQ/L (3.5-5.1); SODIUM (NA) 144 MEQ/L (136-145); TOTAL BILIRUBIN ADULT 0.3 MG/DL (0.2-1.0)
--- NOTE | 2017-06-25 06:15 | RADRPT ---
EXAM DATE/TIME: 06/25/2017 05:34 [facility] COMPARISON: CHEST SINGLE AP, June 24, 2017, 8:33. INDICATIONS : Respiratory failure. MEDICAL HISTORY : Cardiovascular disease. Hypertension Diabetes mellitus type II. SURGICAL HISTORY : Pacemaker. ENCOUNTER: Subsequent ACUITY: 3 days PAIN SCORE: 0/10 LOCATION: Bilateral chest FINDINGS: The NG tube and right subclavian line are well placed. There is a bi-lead pacemaker in place from the left subclavian approach. The heart size is within normal limits. The lungs demonstrate mixed inters titial and alveolar consolidation being worse on the left. There are scattered calcified granulomas i n the right lung. CONCLUSION: Worsening consolidation likely related to worsening edema. Forrest Doshi MD on June 25, 2017 at 6:13 Board Certified Radiologist. This report was verified electronically.
[2017-06-25] MEDS: POTASSIUM CHLOR 40 MEQ PREMIX 100 ML IV PRN ×3 (06:57→22:09)
--- NOTE | 2017-06-25 07:12 | MP ---
cc: ERVIN SOARES MD DATE OF SURGERY 06/23/2017 PREOPERATIVE DIAGNOSIS Perforated viscus. POSTOPERATIVE DIAGNOSIS Perforated viscus, perforation of colon near stricture. Gross contamination, succus and multiple adhesions. PROCEDURE PERFORMED 1. Exploratory laparotomy. 2. Lysis of adhesions greater than 120 minutes. 3. Partial colectomy. 4. Takedown of splenic flexure. 5. Colostomy. SURGEON Dr. Ervin Soares ALODIZE MACHINE HELPER Dr. Sunil Latham. Dr. Latham was necessary due to the complexity of the case. Dr. Latham assisted with retraction and facilitating the case. FINDINGS Small perforation proximal to strictured area with dense adhesions to stomach, small bowel and spleen. There was gross contamination of succus and free intraabdominal air. COMPLICATIONS None. SPECIMENS Partial colectomy, splenic flexure. ESTIMATED BLOOD LOSS 150 cc. IV FLUIDS 4,500 cc. DRAINS JPs. FINDINGS As noted. WOUND CLASSIFICATION Contaminated. INDICATION The patient is a 66-year-old male who presents with several medical issues. The patient was noted to have stricturing, underwent colonoscopy and had a diagnosis of C. difficile colitis. Initial attempt at nonoperative management due to stricturing, opening up and improving. However, the patient did return to the hospital in severe abdominal pain and was noted to have free fluid and free intraperitoneal air. Therefore decision was made for emergent operative intervention including exploration. Discussed with the patient in detail regarding the need for operative intervention and possible bowel resection and possible colostomy. The patient was agreeable to this and would like to proceed. DETAILS OF PROCEDURE The patient was taken to the operating suite, placed in supine position. He was prepped and draped in the usual sterile fashion after induction of general endotracheal anesthesia. Brief time-out was done stating the correct patient, procedure and surgical site. We were all in agreement with this. Attention directed to the midline where a 10 blade was used to incise the midline. Further dissection was done with electro Bovie cautery. After going through the fascia the peritoneum was grasped and Metzenbaum used to incise the peritoneum. There was noted air and yellow-green succus contamination. The peritoneum was further incised and the falciform ligament was taken down between two Farheen clamps and tied with 2-0 silk ties. The abdomen was irrigated with multiple liters of saline. The exploration began. Initially to the cecum, following the colon to the transverse and noting the splenic flexure was severely scarred in. There was noted be stricturing of this area. There was noted be adhesions from small bowel, stomach and spleen intimately attached as well to this area. I did not identify any evidence of creeping fat or any lie noted, significant of thickening or stigmata of inflammatory bowel disease. Therefore I proceeded with takedown of the splenic flexure. This was done with electro Bovie cautery and with the Wave Energy Device. Once this was mobilized, after tedious lysis of adhesions, the spleen was noted be intimately involved and again this was mobilized as well as from the colon. The stomach was also adhered to the greater curvature. Therefore a small area of colon was left in order to avoid entrance into the stomach area. Also noted was a loop of small jejunum noted to be stuck and involved in this area as well and again this was slowly, meticulously incised away from the strictured inflammatory area. Once this was successfully done without evidence of injury to the bowel, the colon was dissected to the mesentery. A 75 blue load CHU stapler was used to transect the proximal portion of transverse colon. Next, distally to the descending colon was noted and further mobilization to the white line of Toldt was done in order to facilitate firing of a 75 Endo-CHU blue load stapler. The segmental colectomy was fully mobilized and removed from the abdomen and sent for pathology. At this point further lysing of adhesions in order to mobilize and explore other areas was done. The small bowel was run from the terminal ileum all the way up to the ligament of Treitz with noted some dilation; however, there is no evidence of perforation or issues with small bowel at this point. The colon was further examined to the sigmoid and no evidence of abnormality. Also the stomach was palpated along with the liver; no evidence of pathology noted at this time. Given the patient's clinical status, noting to be on steroids, he is noted to be in sepsis and the fact that he was on some pressor support intraoperatively, decision was made for colostomy creation. The proximal portion was further mobilized in order to facilitate bringing it up to the right upper quadrant of the anterior abdominal wall. Esther was used to incise the rim of skin and electro Bovie cautery for further dissection was done down to the fascia. A cruciate incision was made. The muscle was spread and the peritoneum was incised in order to comfortably fit two fingers inside the ostomy site hole. Augustina was used to grasp the proximal portion of the colon to bring this through. Again multiple liters of normal saline was done until effluent was clear to all four quadrants and the pelvic area. Next, placement of Seprafilm anti-adhesion barrier was placed in the wound bed. Following this a surgical drain, a 10-[place] Shivam drain was placed in the pelvis and secured with a 2-0 nylon. Next The fascia was closed with a [id number] interrupted suture of #1 Prolene. Following this hemostasis was obtained. Irrigation was done to the subcutaneous tissue and alma delia were used to close the incision. Dressings were then placed including a MARCIE. Next, directed attention toward the colostomy. The colostomy was secured both medial laterally with Vicryl sutures to the fascia and transverse colon. The staple line was removed with electro Bovie cautery, ruby and a Echo fashion was done in order to assist in protruding the colostomy. The colostomy was attached in ruby using 3-0 Vicryl interrupted ties. The colostomy was noted to be pink, viable and patent on interdigitation. Next the ostomy appliance was placed. The patient tolerated the procedure well. There was no intraoperative complication. All lap and instrument counts were correct at the end of the procedure. The patient remained somewhat critical and remained intubated, taken to the ICU. MD KWAME Echevarria/DAVID /7:39 PM /6:32 AM
[2017-06-25 07:23] LABS: PLATELET ESTIMATE SMEAR LOW (NORMAL); PLATELET MORPHOLOGY NORMAL (NORMAL); SCAN/DIFF AUTO DIFF CONFIRMED
[2017-06-25] MEDS ORDERED: SODIUM PHOSPHATE INJ 30 MMOL in SODIUM CHLOR 0.9% 250 ML INJ 250 ML IV ONE (07:45)
[2017-06-25] MEDS: POTASSIUM CHLOR 40 MEQ PREMIX 100 ML IV SCH ×2 (08:00→11:15)
[2017-06-25] MEDS ORDERED: MIDAZOLAM HCL 2 MG/2 ML VIAL IV PUSH PRN (08:00)
--- NOTE | 2017-06-25 08:00 | HHI.CCPN ---
Subjective Remarks/Hospital Course 66-year-old male currently residing at the rehabilitation facility comes in due to fever with low blood pressure, abdominal pain and vomiting. He has history of bowel obstruction in the past. He also was diagnosed with C. difficile. Per patient his abdominal pain never got any better since being in the hospital about a month ago. However, he does say that it has gotten worse recently. He vomited today. He says he continues to have diarrhea. He was found to be febrile. He denies chest pain or shortness of breath. He was admitted in the end of April for bowel obstruction and presented in similar fashion at that time. 06/22: Seen and examined. Currently not on vasopressors. Patient had a large emesis and "feels better" now. Abdomen distended. Patient states she doesn't have a local logistics lead. Pacemaker was "checked" prior to arriving here from [place] within the past several months. 06/23: Afebrile. Chief complaint of abdominal pain bilateral lower quadrants infraumbilical. One bowel movement documented however patient denies.. Very rare flatus. Plan for CT angiogram of the abdomen today 06/24: History status post exploratory lap, partial colectomy with takedown from the splenic flexure creation of colostomy secondary to perforated viscus, perforation at site of splenic flexure with lysis of adhesions from stomach, small bowel and splenic flexure adhered to colon.. Patient received 4500 cc crystalloid. EBL 150. 500 cc urine output. 100 cc NG tube. Patient was extubated overnight with central line placed. Currently on noninvasive ventilation remains acidotic. Will check chest x-ray this AM monitor volume status along with CVP. Pain appears controlled. Subjective 06/25: Resting comfortably in bed. Complaining of "tremors". Afebrile. Positive stool from ostomy 1 residual bowel movement overnight. PECOS drain still not sealing. Objective Vital Signs Date Time Temp Pulse Resp B/P (MAP) Pulse Ox O2 Delivery O2 Flow Rate FiO2 06/25/17 06:00 85 06/25/17 05:16 22 06/25/17 04:00 98.4 114/59 (77) 95 06/24/17 19:00 Nasal Cannula 6.00 06/24/17 04:11 50 Intake and Output 06/25/17 06/25/17 06/26/17 08:00 16:00 00:00 Intake Total 1156 ml Output Total 1290 ml Balance -134 ml Result Diagram: 06/25/17 0515 06/25/17 0515 Other Results Microbiology Date/Time Source Procedure Growth Status 06/22/17 12:23 Blood Peripheral Aerobic Blood Culture - Preliminary NO GROWTH IN 2 DAYS Resulted 06/22/17 12:23 Blood Peripheral Anaerobic Blood Culture - Preliminary NO GROWTH IN 2 DAYS Resulted 06/22/17 04:20 Urine Catheterized Urine Urine Culture - Final Oumou Albicans Complete Imaging Last Impressions Chest X-Ray 06/25/17 0600 Signed Impressions: Service Date/Time: May 05:34 - CONCLUSION: Worsening consolidation likely related to worsening edema. Forrest Doshi MD Abdomen/Pelvis CT 06/23/17 0000 Signed Impressions: Service Date/Time: Friday, June 23, 2017 11:40 - CONCLUSION: Pneumoperitoneum worrisome for perforation of hollow viscus. No acute vascular findings. Forrest Green MD Abdomen X-Ray 06/23/17 0000 Signed Impressions: Service Date/Time: Friday, June 23, 2017 10:13 - CONCLUSION: 1. Findings consistent with improving partial small bowel obstruction. Maynor Shepard MD Objective Remarks GENERAL: 66-year-old male, resting in bed critically ill on 6 L nasal cannula SKIN: Warm and dry. Well perfused HEAD: Atraumatic. Normocephalic. EYES: Pupils equal and round around 3 mm bilaterally and reactive. No scleral icterus. No injection or drainage. ENT: No nasal bleeding or discharge. Mucous membranes dry. NG tube in place in right nares NECK: Trachea midline. No JVD. CARDIOVASCULAR: RRR. S1, S2 no S4 without murmur RESPIRATORY: Coarse rhonchorous breath sounds appreciated throughout anterior and posterior lung lopez. Transmitted upper airway sounds clear with coughing GASTROINTESTINAL: Abdomen midline incision is clean dry and intact. Right lower quadrant ostomy is pink with some brown stool noted. Right lower quadrant AFIA with 562cc SS out. Midline Easton drain/cover substernal to supraumbilical currently not functioning. General surgery aware MUSCULOSKELETAL: Extremities with trace lower extremity bilateral edema. No obvious deformities. NEUROLOGICAL: Awake and alert. RASS 0. No gross focal/sensory deficits. Follows commands in all 4 extremities. Date of Insertion: Jun 23, 2017 Line: Central Venous Catheter Side: Right Location: Subclavian A/P Assessment and Plan Neuro/Psych: Acute toxic metabolic encephalopathy secondary to sepsis Dementia disorder NOS Depression NOS Peripheral neuropathy Currently holding donepezil 5 mg at night for dementia Acetaminophen (Ofirmev) IV 1 g every 8 hours when necessary for fever Morphine sulfate 2-4 mg every 2 hours as needed for pain management Continue Fluoxetine 40 mill grams daily Holding Gabapentin 100 mg 3 times a day per family request due to tremors We'll start on low-dose midazolam 0.5 mg IV as needed for anxiety only while in ICU. Noted IV lorazepam shortage at [facility] CV: History of third-degree heart block - dual chambered pacemaker placed 04/11 currently in normal sinus rhythm History of Hypertension Lactic acidosis - resolved History of Atrial fibrillation currently normal sinus rhythm Holding carvedilol 3.125 mg twice a day lisinopril 2.5 mg daily light of hypotension Cardiology - Dr. Dunham has seen Currently on TPN goal 70 cc now with lipids. Resp: Postoperative respiratory failure COPD Right upper lobe calcified granuloma Currently on nasal cannula at 6 L to maintain saturations greater than equal to 92% AM x-ray reveals likely right lower lobe pleural effusion. Will check chest x- ray again in a.m. and today will attempt gentle diuresis and reassess in a.m. Incentive spirometry while awake Currently on albuterol/ipratropium aerosols every 4 hours with albuterol aerosols every 2 hours when necessary dyspnea 3% hypertonic saline aerosols every 4 hours 5 days for aerosolized mucolytic GI: Postop day #2 Exploratory Laparotomy, partial colectomy with takedown splenic flexure and colostomy placement secondary to perforated viscus, perforation at site of splenic flexure with lysis of adhesions from stomach, small bowel and spleen Dr. Soares Admission diagnosis Large bowel obstruction History of internal/external hemorrhoids UC Sigmoid/descending colonic ulcers Liver cysts Hypoalbuminemia Abdominal ascites CT abdomen/pelvis on admission revealed dilatation the small bowel. Ascending and transverse colon. Transition point the distal transverse colon. Collapsed descending colon. Cecum thickening. CT angiogram 06/23 revealed perforated viscus/pneumoperitoneum Last admission status post colonoscopy 2. Noted 05/27 unable to transverse sigmoid colon due to stricture. Unable to transverse transverse colon due to stricture 06/03. Sigmoid ulcers. C. difficile positive. Currently on mesalamine 800 mg 3 times a day prednisone 20 mg daily - currently on hydrocortisone 50 mg every 6 hours NG tube to LIWS. Minimal output overnight GI/general surgery consult. Dr. Soares Home medication famotidine 20 mg twice a day for GI prophylaxis. Currently IV AFIA -560 cc ss right lower quadrant 06/24 - TPN at 70 cc an hour with 20% lipids daily : Laguna catheter if indicated for accurate I's and O's in a critically ill patient Endo: IDDM Currently holding insulin detemir 20 night with novulin R sliding scale Will continue sliding scale insulin Novulin R every 4 hours high with Accu- Cheks to maintain euglycemia Continue 20 units insulin to TPN and add insulin detemir 25 units twice a day today 06/25. Readjust remainder insulin to TPN within next 24 hours Renal: Chronic kidney disease stage II 1.1 left renal cyst/tiny right infrarenal cyst Creatinine currently within normal limits Monitor urine output Accurate I's and O's Heme: Normocytic anemia Thrombocytopenia Leukocytosis Monitor CBC daily. Follow trends transfuse Previous admission with thrombocytopenia likely secondary infection/DIC. Transfuse 1 unit PRBCs today 06/25 ID: History of C. difficile Funguria - asx He was originally on metronidazole 500 mg every 8 hours and vancomycin 125 mg by mouth every 6 hours Infectious disease following. Currently on piperacillin/tazobactam 4.5 g IV every 6 hours and 400 mg IV daily Appears to being treated with C. difficile. C. difficile negative this admission Blood cultures 2, no growth today. Culture 06/22 - C. albicans FEN: Hypokalemia Hypocalcemia Replacing electrolytes as clinically indicated 40 mEq KCl IV 2. 2 g mag sulfate. Repeat electrolytes this afternoon MSK: Osteoarthritis Holding calcium carbonate/cholecalciferol 500 mg last 400 units 1 tablet twice a day. Resume when clinically indicated PT evaluate and treat Access -Right subclavian CVL placed 06/23 day #3 Prophylaxis - GI -famotidine - DVT - SCD/heparin subcutaneous held prior surgery Level III follow-up Yogi Perez MD Jun 25, 2017 08:00
[2017-06-25] MEDS ORDERED: FUROSEMIDE 40 MG/4 ML VIAL IV PUSH ONE (08:15)
[2017-06-25] MEDS ORDERED: ALBUMIN 25% INJ 100 ML IV ONE (08:15)
[2017-06-25] MEDS: SODIUM CHLORIDE 0.9% FLUSH 10 ML FLUSH IV FLUSH SCH ×2 (09:00→19:55)
[2017-06-25] MEDS: MAGNESIUM SULFATE 1 GM PREMIX 100 ML IV SCH ×2 (09:41→10:39)
[2017-06-25] MEDS: FLUoxetine HCL 20 MG CAP PO SCH (09:42)
[2017-06-25] MEDS: ASCORBIC ACID 500 MG TAB PO SCH ×2 (09:42→19:56)
[2017-06-25] MEDS: INSULIN DETEMIR 100 UNITS/ML VIAL SQ SCH ×3 (09:43→21:33)
[2017-06-25] MEDS: FAMOTIDINE 20 MG/2 ML VIAL IV PUSH SCH ×2 (09:43→19:55)
[2017-06-25] MEDS ORDERED: CALCIUM GLUCONATE INJ 1 GM in SODIUM CHLORIDE 0.9% INJ 100 ML IV ONE (10:00)
--- NOTE | 2017-06-25 10:56 | RADRPT ---
EXAM DATE/TIME: 06/25/2017 10:22 [facility] COMPARISON: No previous studies available for comparison. INDICATIONS : Left arm swelling. MEDICAL HISTORY : Hypercholesterolemia. Chronic obstructive pulmonary disease. Hypertension. Coronary artery disease. I rregular heartbeat. Collapsed lung. Right leg fracture. Arthritis. Diabetes. C.diff. Measles. SURGICAL HISTORY : Pacemaker. Colostomy. Right knee surgery. Right chest tube. Partial colectomy. ENCOUNTER: Initial ACUITY: 2 day PAIN SCORE: 1/10 LOCATION: Left arm. FINDINGS: There is spontaneous flow documented in the brachial, basilic, cephalic, axillary, and subclavian vei ns. The vessels are compressible and augmentation response is documented. No filling defects are se en. The flow is phasic with respiration. Direction of flow in the jugular vein is caudal. CONCLUSION: Normal examination. Forrest Green MD on June 25, 2017 at 10:54 Board Certified Radiologist. This report was verified electronically.
[2017-06-25] MEDS: RESP: SODIUM CHLORIDE 3% 4 ML NEB NEB SCH ×4 (13:53→20:47)
[2017-06-25] MEDS ORDERED: HYDROCORTISONE SOD SUCCINATE 100 MG VIAL IV PUSH SCH (14:00)
--- NOTE | 2017-06-25 15:40 | HHI.PR ---
Subjective Subjective Notes Resting in bed DIPTI Garces at bedside pesticide control inspector Marimar at bedside MARCUS Mclean at bedside Objective Vitals/I&O Vital Signs Date Time Temp Pulse Resp B/P (MAP) Pulse Ox O2 Delivery O2 Flow Rate FiO2 06/25/17 14:00 92 06/25/17 12:00 98.0 17 123/59 (80) 89 06/25/17 08:18 Nasal Cannula 6.00 06/24/17 04:11 50 Labs Laboratory Tests Test 06/24/17 16:15 06/25/17 05:15 06/25/17 10:24 Blood Urea Nitrogen 28 29 Creatinine 0.99 1.16 Random Glucose 117 329 Total Protein 4.4 4.5 Calcium Level 6.4 6.6 Phosphorus Level 3.4 2.7 Magnesium Level 1.6 1.7 Sodium Level 145 144 Potassium Level 3.1 3.3 Chloride Level 112 111 Carbon Dioxide Level 24.7 22.1 Anion Gap 8 11 Estimat Glomerular Filtration Rate 75 63 Lactic Acid Level 0.6 1.1 Protein Corrected Calcium 7.8 7.9 White Blood Count 12.0 Red Blood Count 2.52 Hemoglobin 7.0 Hematocrit 22.1 Mean Corpuscular Volume 87.7 Mean Corpuscular Hemoglobin 27.7 Mean Corpuscular Hemoglobin Concent 31.5 Red Cell Distribution Width 17.6 Platelet Count 63 Mean Platelet Volume 9.4 Neutrophils (%) (Auto) 95.1 Lymphocytes (%) (Auto) 2.9 Monocytes (%) (Auto) 1.8 Eosinophils (%) (Auto) 0.1 Basophils (%) (Auto) 0.1 Neutrophils # (Auto) 11.4 Lymphocytes # (Auto) 0.3 Monocytes # (Auto) 0.2 Eosinophils # (Auto) 0.0 Basophils # (Auto) 0.0 CBC Comment AUTO DIFF Differential Comment AUTO DIFF CONFIRMED Platelet Estimate LOW Platelet Morphology Comment NORMAL Albumin 1.6 Alkaline Phosphatase 129 Aspartate Amino Transf (AST/SGOT) 8 Alanine Aminotransferase (ALT/SGPT) LESS THAN 6 Total Bilirubin 0.3 Date/Time Source Procedure Growth Status 06/22/17 12:23 Blood Peripheral Aerobic Blood Culture - Preliminary NO GROWTH IN 3 DAYS Resulted 06/22/17 12:23 Blood Peripheral Anaerobic Blood Culture - Preliminary NO GROWTH IN 3 DAYS Resulted 06/22/17 04:20 Urine Catheterized Urine Urine Culture - Final Oumou Albicans Complete Cardiovascular: Regular Lungs: Clear Abdomen: Other (midline incision---MARCIE replaced --now with good seal; AFIA with serous cloudy fluid; abdomen flat; minimally tender to palpation ) Extremities: Other (moderate generalized edema ) A/P Assessment and Plan 66 year old male POD2 exlap; TOR; partial colectomy, takedown of splenic flexure , colostomy -DC NGT -Start sips of clears -Continue antibiotics---Zosyn/Flagyl/Diflucan -IVF -Continue TPN -Continue routine AFIA care -PT eval and treat; OOB to chair -Consult to pesticide control inspector for colostomy care and teaching Attending Statement patient seen at bedside needs very close post op care and obs due to critical situation and multiple comorbidities tpn abx ostomy care Attestation The exam, history, and the medical decision-making described in the above note were completed with the assistance of the mid-level provider. I reviewed and agree with the findings presented. I attest that I had a [id number] encounter with the patient on the same day, and personally performed and documented my assessment and findings in the medical record. Marianne Torres Jun 25, 2017 15:40 Michael Soares MD Jun 29, 2017 05:06
[2017-06-25] MEDS: FLUCONAZOLE 400 MG PREMIX BAG 200 ML IV SCH (15:51)
--- NOTE | 2017-06-25 16:01 | PD.WCN.NOT ---
Wound Consult Description: Consult placed for New Colostomy per MARCUS Torres Communicated with: MARCUS Torres Recommendation: Empty pouch of effluent when 07/29-07/28 full Additional Information: Patient seen on for ostomy assessment. Ostomy Type: Colostomy Additional information Stoma noted to right side abdomen. Stoma is edematous, pink, moist, moderately protruding, lumen noted in center of stoma, not functioning at this time, however there is greenish brown residue noted to pouch that was emptied previously. Stoma measures 2 3/8" round. Appliance size in use is 2 3/4" cut to fit and is mostly intact with a wrinkle noted medially where the abdominal dressing was being replaced. Marimar Palm [facility] Jun 25, 2017 16:01
--- NOTE | 2017-06-25 16:04 | HHI.GIFU ---
Subjective Remarks Resting in bed. Getting drsg changed. Feeling much better today. NGT out. Started drinking water. + stool from colostomy (Caridad Bradford) Objective Vitals I&O Vital Signs Date Time Temp Pulse Resp B/P (MAP) Pulse Ox O2 Delivery O2 Flow Rate FiO2 06/25/17 14:00 92 06/25/17 12:00 95 06/25/17 12:00 98.0 95 17 123/59 (80) 89 06/25/17 10:00 84 06/25/17 08:18 97 Nasal Cannula 6.00 06/25/17 08:00 82 06/25/17 08:00 98.5 86 14 117/61 (79) 93 06/25/17 07:00 94 Nasal Cannula 6.00 06/25/17 06:00 85 06/25/17 05:16 22 06/25/17 04:00 88 06/25/17 04:00 98.4 88 14 114/59 (77) 95 06/25/17 02:00 88 06/25/17 00:00 98.1 88 17 101/56 (71) 92 06/25/17 00:00 88 06/24/17 22:00 88 06/24/17 20:00 86 06/24/17 20:00 98.3 86 12 105/58 (74) 94 06/24/17 19:00 94 Nasal Cannula 6.00 06/24/17 18:00 85 06/24/17 17:47 91 Nasal Cannula 6.00 06/24/17 16:00 84 06/24/17 16:00 97.8 84 18 142/54 (83) 96 I/O 06/24/17 06/24/17 06/24/17 06/25/17 06/25/17 06/25/17 07:00 15:00 23:00 07:00 15:00 23:00 Intake Total 2100 ml 704 ml 446 ml 1156 ml 398 ml Output Total 967 ml 1720 ml 1290 ml Balance 1133 ml 704 ml -1274 ml -134 ml 398 ml IV Total 2100 ml 704 ml 446 ml 1156 ml 398 ml Output Urine Total 425 ml 950 ml 900 ml Stool Total 50 ml 450 ml 150 ml Gastric Drainage Total 0 ml 0 ml 0 ml Drainage Total 492 ml 320 ml 240 ml # Bowel Movements 0 1 Laboratory Laboratory Tests Test 06/24/17 16:15 06/25/17 05:15 06/25/17 10:24 Blood Urea Nitrogen 28 29 Creatinine 0.99 1.16 Random Glucose 117 329 Total Protein 4.4 4.5 Calcium Level 6.4 6.6 Phosphorus Level 3.4 2.7 Magnesium Level 1.6 1.7 Sodium Level 145 144 Potassium Level 3.1 3.3 Chloride Level 112 111 Carbon Dioxide Level 24.7 22.1 Anion Gap 8 11 Estimat Glomerular Filtration Rate 75 63 Lactic Acid Level 0.6 1.1 Protein Corrected Calcium 7.8 7.9 White Blood Count 12.0 Red Blood Count 2.52 Hemoglobin 7.0 Hematocrit 22.1 Mean Corpuscular Volume 87.7 Mean Corpuscular Hemoglobin 27.7 Mean Corpuscular Hemoglobin Concent 31.5 Red Cell Distribution Width 17.6 Platelet Count 63 Mean Platelet Volume 9.4 Neutrophils (%) (Auto) 95.1 Lymphocytes (%) (Auto) 2.9 Monocytes (%) (Auto) 1.8 Eosinophils (%) (Auto) 0.1 Basophils (%) (Auto) 0.1 Neutrophils # (Auto) 11.4 Lymphocytes # (Auto) 0.3 Monocytes # (Auto) 0.2 Eosinophils # (Auto) 0.0 Basophils # (Auto) 0.0 CBC Comment AUTO DIFF Differential Comment AUTO DIFF CONFIRMED Platelet Estimate LOW Platelet Morphology Comment NORMAL Albumin 1.6 Alkaline Phosphatase 129 Aspartate Amino Transf (AST/SGOT) 8 Alanine Aminotransferase (ALT/SGPT) LESS THAN 6 Total Bilirubin 0.3 Date/Time Source Procedure Growth Status 06/22/17 12:23 Blood Peripheral Aerobic Blood Culture - Preliminary NO GROWTH IN 3 DAYS Resulted 06/22/17 12:23 Blood Peripheral Anaerobic Blood Culture - Preliminary NO GROWTH IN 3 DAYS Resulted 06/22/17 04:20 Urine Catheterized Urine Urine Culture - Final Oumou Albicans Complete Imaging Last Impressions Chest X-Ray 06/25/17 0600 Signed Impressions: Service Date/Time: May 05:34 - CONCLUSION: Worsening consolidation likely related to worsening edema. Forrest Doshi MD Upper Extremity Ultrasound 06/25/17 0000 Signed Impressions: Service Date/Time: May 10:22 - CONCLUSION: Normal examination. Forrest Green MD Abdomen/Pelvis CT 06/23/17 0000 Signed Impressions: Service Date/Time: Friday, June 23, 2017 11:40 - CONCLUSION: Pneumoperitoneum worrisome for perforation of hollow viscus. No acute vascular findings. Forrest Green MD Abdomen X-Ray 06/23/17 0000 Signed Impressions: Service Date/Time: Friday, June 23, 2017 10:13 - CONCLUSION: 1. Findings consistent with improving partial small bowel obstruction. Maynor Shepard MD Physical Exam HEENT: Normocephalic; atraumatic; no jaundice. CHEST: CTA CARDIAC: Resp. shallow, mildly labored. Crackles. ABDOMEN: Nondistended, midline incision line drsg d/i, galileo drain. colostomy with liquid stool EXTREMITIES: Ble edema. SKIN: Normal; no rash; no jaundice. HALL SUPERVISOR: No focal deficits; lethargic and oriented times three. (Caridad Bradford) Assessment and Plan Plan ASSESSMENT: - Bowel obstruction. CT Scan abdomen and pelvis (06/22/17)---> Bowel obstruction with an area of transition and narrowing in the distal transverse colon in splenic flexure region. Mild to moderate ascites. Small subcentimeter hypodensities in the liver, may represent cysts although they are nonspecific. Bilateral pleural effusions being worse on the left. There are accompanying areas of atelectasis or consolidation in the lung bases. Pt was recently hospitalized with Cdiff colitis and bowel obstruction secondary to splenic flexure from 05/25-06/02. Of note, US abdomen (05/27/17)---> discordant velocities in imaging findings, CTA may be of benefit. This was not done secondary to his renal impairment at the time. Colonoscopy (06/10/17)---> Changes most consistent with colitis probably of the ulcerative type involving left colon splenic flexure stricture benign appearing. Pathology noted transverse colon biopsy without significant histologic abnormality, splenic flexure biopsy acutely inflamed colonic mucosa and granulation tissues consistent with ulceration, descending colon polyp with colonic mucosa without significant histologic abnormality, sigmoid biopsy acute inflamed colonic mucosa and granulation tissue consistent with ulceration, rectum biopsy with acutely inflamed colonic mucosa and granulation tissue consistent with ulceration. He was started on Asacol HD 800mg po TID and a prednisone taper with 40mg po daily x 9 days, 30mg x 10 days, 20mg x 10 days, 10mg x 10 days, then 5mg x 10 days and then d/c. He improved on this up until two days ago when he developed worsening distention, nausea, vomiting, pain, and decreased stool output. NGT to LIWS, NPO. Abx. Stricture secondary to ulcerative colitis vs. ischemic colitis. CTA (06/23/17)----> Pneumoperitoneum worrisome for perforation of hollow viscus. No acute vascular findings. S/P Exp. Lap., TOR, partial colectomy, take down of splenic flexure, colostomy (06/23/17)----> Colon perforated near stricture, adhesions of stomach, small bowel and spleen to colon, sucus, free air. GS following. TPN, Started on clear liquids. Diflucan, Flagyl, Zosyn. Steroids. Asacol. - Pneumoperitoneum. S/P surgery as above. Per GS. - Sepsis with bowel obstruction and recent hx of CDiff colitis. CDiff negative. Urine, blood cx no growth 2 days. Vancomycin, Zosyn. Flagyl, Diflucan. CDiff was negative, okay to d/c Oral Vanco. WBC 12.0. Lactic acid down to 1.1. - Anemia, normocytic. 7.0/22.1. - CMP, CHF, DM, Hyperlipidemia per attending. PLAN: - Diet per GS - TPN - Cont. Steroids - Cont. Abx - GS following - S/P Exp. Lap., TOR, partial colectomy, take down of splenic flexure, colostomy (06/23/17) - Further recommendations to follow based on results of above - Pt seen and examined by Dr. Perry and myself and this note is written on her behalf (Caridad Bradford) Caridad Bradford Jun 25, 2017 16:04 Chloe Perry MD Jun 25, 2017 19:41
--- NOTE | 2017-06-25 17:55 | HHI.IDPN ---
Subjective Subjective Remarks doing better colon path P no fever + stooling Antibiotics zosyn fluconazole Allergies: Coded Allergies: No Known Allergies (Unverified Adverse Reaction, Unknown, 05/25/17) Objective . Vital Signs Date Time Temp Pulse Resp B/P (MAP) Pulse Ox O2 Delivery O2 Flow Rate FiO2 06/25/17 17:12 94 High Flow Nasal Cannula 20.00 50 06/25/17 16:00 100 06/25/17 14:00 92 06/25/17 12:00 95 06/25/17 12:00 98.0 95 17 123/59 (80) 89 06/25/17 10:00 84 06/25/17 08:18 97 Nasal Cannula 6.00 06/25/17 08:00 82 06/25/17 08:00 98.5 86 14 117/61 (79) 93 06/25/17 07:00 94 Nasal Cannula 6.00 06/25/17 06:00 85 06/25/17 05:16 22 06/25/17 04:00 88 06/25/17 04:00 98.4 88 14 114/59 (77) 95 06/25/17 02:00 88 06/25/17 00:00 98.1 88 17 101/56 (71) 92 06/25/17 00:00 88 06/24/17 22:00 88 06/24/17 20:00 86 06/24/17 20:00 98.3 86 12 105/58 (74) 94 06/24/17 19:00 94 Nasal Cannula 6.00 06/24/17 18:00 85 06/25/17 06/25/17 06/26/17 15:00 23:00 07:00 Intake Total 398 ml Balance 398 ml IV Total 398 ml . Laboratory Tests Test 06/24/17 03:55 06/25/17 05:15 White Blood Count 10.4 TH/MM3 12.0 TH/MM3 Red Blood Count 3.07 MIL/MM3 2.52 MIL/MM3 Hemoglobin 8.8 GM/DL 7.0 GM/DL Hematocrit 27.1 % 22.1 % Mean Corpuscular Volume 88.5 FL 87.7 FL Mean Corpuscular Hemoglobin 28.7 PG 27.7 PG Mean Corpuscular Hemoglobin Concent 32.4 % 31.5 % Red Cell Distribution Width 17.8 % 17.6 % Platelet Count 98 TH/MM3 63 TH/MM3 Mean Platelet Volume 8.5 FL 9.4 FL Neutrophils (%) (Auto) 95.2 % 95.1 % Lymphocytes (%) (Auto) 2.4 % 2.9 % Monocytes (%) (Auto) 2.4 % 1.8 % Eosinophils (%) (Auto) 0.0 % 0.1 % Basophils (%) (Auto) 0.0 % 0.1 % Neutrophils # (Auto) 9.9 TH/MM3 11.4 TH/MM3 Lymphocytes # (Auto) 0.2 TH/MM3 0.3 TH/MM3 Monocytes # (Auto) 0.3 TH/MM3 0.2 TH/MM3 Eosinophils # (Auto) 0.0 TH/MM3 0.0 TH/MM3 Basophils # (Auto) 0.0 TH/MM3 0.0 TH/MM3 CBC Comment AUTO DIFF AUTO DIFF Differential Comment AUTO DIFF CONFIRMED AUTO DIFF CONFIRMED Platelet Estimate LOW Platelet Morphology Comment NORMAL Laboratory Tests Test 06/23/17 20:20 06/23/17 20:26 06/24/17 03:55 06/24/17 16:15 Blood Urea Nitrogen 27 MG/DL 29 MG/DL 28 MG/DL Creatinine 0.89 MG/DL 1.11 MG/DL 0.99 MG/DL Random Glucose 219 MG/DL 235 MG/DL 117 MG/DL Total Protein 4.1 GM/DL 4.1 GM/DL 4.4 GM/DL Calcium Level 6.3 MG/DL 6.1 MG/DL 6.4 MG/DL Sodium Level 142 MEQ/L 144 MEQ/L 145 MEQ/L Potassium Level 3.6 MEQ/L 3.5 MEQ/L 3.1 MEQ/L Chloride Level 108 MEQ/L 110 MEQ/L 112 MEQ/L Carbon Dioxide Level 26.0 MEQ/L 23.6 MEQ/L 24.7 MEQ/L Anion Gap 8 MEQ/L 10 MEQ/L 8 MEQ/L Estimat Glomerular Filtration Rate 85 ML/MIN 66 ML/MIN 75 ML/MIN Protein Corrected Calcium 7.8 MG/DL 7.6 MG/DL 7.8 MG/DL Magnesium Level 1.7 MG/DL 1.6 MG/DL 1.6 MG/DL Lactic Acid Level 1.1 mmol/L 1.0 mmol/L 0.6 mmol/L Albumin 1.1 GM/DL Phosphorus Level 4.7 MG/DL 3.4 MG/DL Alkaline Phosphatase 118 U/L Aspartate Amino Transf (AST/SGOT) 6 U/L Alanine Aminotransferase (ALT/SGPT) 6 U/L Total Bilirubin 0.2 MG/DL Test 06/25/17 05:15 Blood Urea Nitrogen 29 MG/DL Creatinine 1.16 MG/DL Random Glucose 329 MG/DL Total Protein 4.5 GM/DL Albumin 1.6 GM/DL Calcium Level 6.6 MG/DL Phosphorus Level 2.7 MG/DL Magnesium Level 1.7 MG/DL Alkaline Phosphatase 129 U/L Aspartate Amino Transf (AST/SGOT) 8 U/L Alanine Aminotransferase (ALT/SGPT) LESS THAN 6 U/L Total Bilirubin 0.3 MG/DL Sodium Level 144 MEQ/L Potassium Level 3.3 MEQ/L Chloride Level 111 MEQ/L Carbon Dioxide Level 22.1 MEQ/L Anion Gap 11 MEQ/L Estimat Glomerular Filtration Rate 63 ML/MIN Lactic Acid Level 1.1 mmol/L Protein Corrected Calcium 7.9 MG/DL Imaging Last Impressions Chest X-Ray 06/25/17 0600 Signed Impressions: Service Date/Time: May 05:34 - CONCLUSION: Worsening consolidation likely related to worsening edema. Forrest Doshi MD Upper Extremity Ultrasound 06/25/17 0000 Signed Impressions: Service Date/Time: May 10:22 - CONCLUSION: Normal examination. Forrest Green MD Abdomen/Pelvis CT 06/23/17 0000 Signed Impressions: Service Date/Time: Friday, June 23, 2017 11:40 - CONCLUSION: Pneumoperitoneum worrisome for perforation of hollow viscus. No acute vascular findings. Forrest Green MD Abdomen X-Ray 06/23/17 0000 Signed Impressions: Service Date/Time: Friday, June 23, 2017 10:13 - CONCLUSION: 1. Findings consistent with improving partial small bowel obstruction. Maynor Shepard MD Physical Exam CONSTITUTIONAL/GENERAL: This is an adequately nourished patient, in no apparent distress. TUBES/LINES/DRAINS: SKIN: No jaundice, rashes, or lesions. Skin temperature appropriate. Not diaphoretic. EYES: Pupils equal and round and reactive. Extraocular motions intact. No scleral icterus. No injection or drainage. Fundi not examined. CARDIOVASCULAR: Regular rate and rhythm without murmurs, gallops, or rubs. No JVD. Peripheral pulses symmetric. Pacer in place L chest RESPIRATORY/CHEST: Symmetric, unlabored respirations. B/l rhonchi to auscultation. Breath sounds equal bilaterally. GASTROINTESTINAL: Abdomen post op, + distended. Stoma in place pink, witjh mild serosang d/c GENITOURINARY: Without palpable bladder distension. Laguna catheter in place. MUSCULOSKELETAL: Extremities with prominent clubbing, + LE edema. No joint tenderness or effusion noted. No calf tenderness. No mottling or clubbing. NEUROLOGICAL: awake, alert PSYCHIATRIC: unable to assess Assessment & Plan Remarks Bowel obstruction, recurrent with acute perforation and fecal peritonitis - sp emergent surgery - path P but no pseudomembaranes - stricture was discovered in op Recent C.diff, C.diff PCR negative Hypoxia, effusions ? ARDS High risk for surgery per cardiac eval'n Fuguria, C/ albicans cont zosyn cont fluconazole Discussed Condition With Zulema Clayton MD Jun 25, 2017 17:55
[2017-06-25 18:03] LABS: HEMATOCRIT 22.2 % (39.0-51.0); MEAN CELL VOLUME 86.8 FL (80.0-100.0); MEAN CORPUSCULAR HGB CONC 32.2 % (32.0-36.0); PLATELET COUNT 61 TH/MM3 (150-450); RED BLOOD COUNT 2.56 MIL/MM3 (4.50-5.90); RED CELL DISTRIBUTION WIDTH 17.5 % (11.6-17.2); REVIEW FLAG FINAL; WHITE BLOOD COUNT 16.1 TH/MM3 (4.0-11.0)
[2017-06-25 18:30] LABS: BICARBONATE 22.8 MEQ/L (21.0-32.0); MAGNESIUM 1.7 MG/DL (1.5-2.5)
[2017-06-25 18:48] LABS: CALCIUM-PROTEIN CORRECTED 8.2 MG/DL (8.5-10.1)
[2017-06-25 18:52] LABS: POTASSIUM 2.9 MEQ/L (3.5-5.1)
[2017-06-25] MEDS: MORPHINE SULFATE 4 MG/ML INJ IV PUSH PRN ×2 (19:54→22:13)
[2017-06-25] MEDS: DONEPEZIL HCL 5 MG TAB PO SCH (19:56)
[2017-06-25] MEDS ORDERED: FUROSEMIDE 100 MG/10 ML VIAL IV PUSH ONE (21:00)
[2017-06-25] MEDS: MULTIVITAMIN INJ 10 ML, FOLIC ACID INJ 1 MG, INSULIN HUMAN REGULAR INJ 30 UNITS in AMIN... IV-CENTRAL SCH (21:32)
[2017-06-25] MEDS: FAT EMULSION 20% INJ 250 ML (Daily over 8 hours) IV-CENTRAL SCH (21:33)
[2017-06-25] MEDS ORDERED: INSULIN DETEMIR 100 UNITS/ML VIAL SQ ONE (22:23)
[2017-06-26] VITALS (16 sets, daily range): BP systolic 97–141; BP diastolic 60–99; PULSE 75–148; RESP 13–28; TEMP 98.1–99; O2SAT 87–95
[2017-06-26] MEDS: RESP: ALBUTEROL 2.5 MG/IPRATROPIUM 0.5 MG NEB (SCH) NEB ×6 (00:24→21:05)
[2017-06-26] MEDS: RESP: SODIUM CHLORIDE 3% 4 ML NEB NEB SCH ×6 (00:24→21:05)
[2017-06-26] MEDS: PIPERACIL-TAZO 4.5 GM PREMIX 100 ML IV SCH ×4 (00:50→20:58)
[2017-06-26] MEDS ORDERED: METOPROLOL TARTRATE 5 MG/5 ML VIAL ONE (03:02)
[2017-06-26] MEDS: LABETALOL HCL 100 MG/20 ML VIAL IV PUSH PRN ×2 (03:07→03:22)
[2017-06-26] MEDS: CHLORHEXIDINE GLUCONATE 2 % 1 PACK (2 CLOTHS) TOP SCH (03:33)
[2017-06-26 04:00] LABS: HEMATOCRIT 26.8 % (39.0-51.0); LYMPH % 2.9 % (9.0-44.0); LYMPHOCYTE # 0.5 TH/MM3 (1.0-4.8); MEAN CELL VOLUME 83.7 FL (80.0-100.0); MEAN CORPUSCULAR HEMOGLOBIN 27.2 PG (27.0-34.0); MEAN CORPUSCULAR HGB CONC 32.5 % (32.0-36.0); NEUT % 96.1 % (16.0-70.0); PLATELET COUNT 64 TH/MM3 (150-450); RED BLOOD COUNT 3.21 MIL/MM3 (4.50-5.90); RED CELL DISTRIBUTION WIDTH 20.5 % (11.6-17.2); WHITE BLOOD COUNT 16.7 TH/MM3 (4.0-11.0)
[2017-06-26] MEDS: INSULIN NovoLIN REGULAR SUPPLEMENTAL SCALE SQ SCH ×7 (04:00→23:40)
[2017-06-26 04:05] LABS: HEMO FLAGS AUTO DIFF
[2017-06-26] MEDS: MESALAMINE HD 800 MG DELAYED RELEASE TAB PO SCH ×3 (04:12→20:59)
[2017-06-26 04:15] LABS: BICARBONATE 26.4 MEQ/L (21.0-32.0); CALCIUM-PROTEIN CORRECTED 8.5 MG/DL (8.5-10.1); MAGNESIUM 1.6 MG/DL (1.5-2.5); TOTAL BILIRUBIN ADULT 0.4 MG/DL (0.2-1.0)
[2017-06-26 04:17] LABS: POTASSIUM 2.9 MEQ/L (3.5-5.1)
[2017-06-26] MEDS: POTASSIUM CHLOR 40 MEQ PREMIX 100 ML IV PRN ×3 (04:19→20:34)
[2017-06-26 04:32] LABS: SCAN/DIFF AUTO DIFF CONFIRMED
[2017-06-26] MEDS: MAGNESIUM SULFATE INJ 2 GM in SODIUM CHLORIDE 0.9% INJ 96 ML IV PRN ×2 (04:36→20:59)
--- NOTE | 2017-06-26 04:50 | RADRPT ---
EXAM DATE/TIME: 06/26/2017 04:07 [facility] COMPARISON: CHEST SINGLE AP, June 25, 2017, 5:34. INDICATIONS : Shortness of breath. MEDICAL HISTORY : Chronic obstructive pulmonary disease. Cardiovascular disease. Hypercholesterolemia. Hypertensio n. Coronary artery disease. Collapsed lung.Arthritis. Right leg fracture. Diabetes. Measles. C.diff. SURGICAL HISTORY : Pacemaker. Right chest tube. Right knee surgery. ENCOUNTER: Subsequent ACUITY: 4 - 6 days PAIN SCORE: Non-responsive. LOCATION: Bilateral chest FINDINGS: Portable AP view of the chest demonstrates a normal-sized cardiac silhouette. Cardiac pacing device r emains present. Nasogastric tube has been removed but right subclavian central line remains. There is severe diffuse bilateral airspace consolidation, increased in severity in the right lower lung zone and slightly improved in the left midlung zone. No pneumothorax is identified. CONCLUSION: Severe bilateral airspace consolidation, worsened in the right lower lung zone and slightly improved in the left midlung zone. Forrest Santos MD on June 26, 2017 at 4:48 Board Certified Radiologist. This report was verified electronically.
[2017-06-26] MEDS: HYDROCORTISONE SOD SUCCINATE 100 MG VIAL IV PUSH SCH ×3 (05:59→20:59)
[2017-06-26] MEDS: ASCORBIC ACID 500 MG TAB PO SCH ×2 (09:00→20:59)
[2017-06-26] MEDS: FLUoxetine HCL 20 MG CAP PO SCH (09:00)
[2017-06-26] MEDS: SODIUM CHLORIDE 0.9% FLUSH 10 ML FLUSH IV FLUSH SCH ×2 (09:00→21:00)
[2017-06-26] MEDS: FAMOTIDINE 20 MG/2 ML VIAL IV PUSH SCH ×2 (09:31→20:59)
[2017-06-26] MEDS: INSULIN DETEMIR 100 UNITS/ML VIAL SQ SCH ×2 (09:31→20:34)
[2017-06-26] MEDS ORDERED: FUROSEMIDE 40 MG/4 ML VIAL ONE (10:09)
[2017-06-26 10:12] LABS: BLOOD GAS BASE EXCESS 0.6 mmol/L (-2-2); BLOOD GAS CARBOXYHEMOGLOBIN 0.3 % (0-4); BLOOD GAS HCO3 24 mmol/L (22-26); BLOOD GAS METHEMOGLOBIN 0.5 % (0-2); BLOOD GAS O2 HGB SATURATION 91 % (90-100); BLOOD GAS PCO2 36 mmHg (38-42); BLOOD GAS PO2 66 mmHg (61-120); BLOOD GAS TOTAL HGB 9.4 G/DL (12.0-16.0); CRITICAL VALUE NO; TEMP CORR TO 98.6
[2017-06-26 10:13] LABS: DRAW SITE LT RADIAL; FIO2 60 %; LITER FLOW 40 L/M; NUMBER OF ARTERIAL PUNCTURES 1; OXYGEN DEVICE HIGH-FLOW; STAT NO; ULNAR PULSE PRESENT
[2017-06-26] MEDS ORDERED: FUROSEMIDE 40 MG/4 ML VIAL IV ONE (10:30)
--- NOTE | 2017-06-26 13:58 | HHI.IDPN ---
Subjective Subjective Remarks colon path P no fever + stooling NPO having breathing difficulties Antibiotics zosyn fluconazole Allergies: Coded Allergies: No Known Allergies (Unverified Adverse Reaction, Unknown, 05/25/17) Objective . Vital Signs Date Time Temp Pulse Resp B/P (MAP) Pulse Ox O2 Delivery O2 Flow Rate FiO2 06/26/17 12:05 94 High Flow Nasal Cannula 30.00 60 06/26/17 12:00 91 06/26/17 12:00 98.9 91 28 121/66 (84) 89 06/26/17 10:00 90 06/26/17 08:29 94 High Flow Nasal Cannula 35.00 60 06/26/17 08:00 93 06/26/17 08:00 98.1 90 25 121/66 (84) 89 Arterial Line 06/26/17 07:36 95 High Flow Nasal Cannula 40.00 60 06/26/17 07:00 92 Nasal Cannula 40.00 60 06/26/17 06:00 75 06/26/17 06:00 75 116/62 (80) 06/26/17 04:00 148 06/26/17 04:00 98.1 148 18 97/60 (72) 87 06/26/17 02:00 93 06/26/17 00:00 92 06/26/17 00:00 98.1 92 13 122/66 (84) 93 06/25/17 22:50 23 06/25/17 22:00 98 06/25/17 21:30 90 Nasal Cannula 20.00 60 06/25/17 20:50 93 High Flow Nasal Cannula 30.00 60 06/25/17 20:00 93 06/25/17 20:00 98.6 101 24 125/65 (85) 87 06/25/17 20:00 92 Nasal Cannula 30.00 60 06/25/17 19:50 98.6 101 24 125/65 87 06/25/17 19:00 87 Nasal Cannula 20.00 50 06/25/17 19:00 98.6 101 24 125/65 87 06/25/17 18:00 105 06/25/17 17:20 98.2 99 18 117/58 93 06/25/17 17:12 94 High Flow Nasal Cannula 20.00 50 06/25/17 17:05 98.4 94 18 116/58 93 06/25/17 16:00 98.4 94 18 116/58 (77) 94 06/25/17 16:00 100 06/25/17 14:00 92 . Laboratory Tests Test 06/25/17 05:15 06/25/17 17:45 06/26/17 03:30 White Blood Count 12.0 TH/MM3 16.1 TH/MM3 16.7 TH/MM3 Red Blood Count 2.52 MIL/MM3 2.56 MIL/MM3 3.21 MIL/MM3 Hemoglobin 7.0 GM/DL 7.2 GM/DL 8.7 GM/DL Hematocrit 22.1 % 22.2 % 26.8 % Mean Corpuscular Volume 87.7 FL 86.8 FL 83.7 FL Mean Corpuscular Hemoglobin 27.7 PG 28.0 PG 27.2 PG Mean Corpuscular Hemoglobin Concent 31.5 % 32.2 % 32.5 % Red Cell Distribution Width 17.6 % 17.5 % 20.5 % Platelet Count 63 TH/MM3 61 TH/MM3 64 TH/MM3 Mean Platelet Volume 9.4 FL 9.4 FL 9.9 FL Neutrophils (%) (Auto) 95.1 % 96.1 % Lymphocytes (%) (Auto) 2.9 % 2.9 % Monocytes (%) (Auto) 1.8 % 1.0 % Eosinophils (%) (Auto) 0.1 % 0.0 % Basophils (%) (Auto) 0.1 % 0.0 % Neutrophils # (Auto) 11.4 TH/MM3 16.0 TH/MM3 Lymphocytes # (Auto) 0.3 TH/MM3 0.5 TH/MM3 Monocytes # (Auto) 0.2 TH/MM3 0.2 TH/MM3 Eosinophils # (Auto) 0.0 TH/MM3 0.0 TH/MM3 Basophils # (Auto) 0.0 TH/MM3 0.0 TH/MM3 CBC Comment AUTO DIFF AUTO DIFF Differential Comment AUTO DIFF CONFIRMED AUTO DIFF CONFIRMED Platelet Estimate LOW Platelet Morphology Comment NORMAL Laboratory Tests Test 06/24/17 16:15 06/25/17 05:15 06/25/17 17:45 06/26/17 03:30 Blood Urea Nitrogen 28 MG/DL 29 MG/DL 30 MG/DL 29 MG/DL Creatinine 0.99 MG/DL 1.16 MG/DL 1.05 MG/DL 1.05 MG/DL Random Glucose 117 MG/DL 329 MG/DL 145 MG/DL 149 MG/DL Total Protein 4.4 GM/DL 4.5 GM/DL 4.9 GM/DL 5.0 GM/DL Calcium Level 6.4 MG/DL 6.6 MG/DL 7.0 MG/DL 7.3 MG/DL Phosphorus Level 3.4 MG/DL 2.7 MG/DL 2.0 MG/DL 2.0 MG/DL Magnesium Level 1.6 MG/DL 1.7 MG/DL 1.7 MG/DL 1.6 MG/DL Sodium Level 145 MEQ/L 144 MEQ/L 145 MEQ/L 148 MEQ/L Potassium Level 3.1 MEQ/L 3.3 MEQ/L 2.9 MEQ/L 2.9 MEQ/L Chloride Level 112 MEQ/L 111 MEQ/L 112 MEQ/L 110 MEQ/L Carbon Dioxide Level 24.7 MEQ/L 22.1 MEQ/L 22.8 MEQ/L 26.4 MEQ/L Anion Gap 8 MEQ/L 11 MEQ/L 10 MEQ/L 12 MEQ/L Estimat Glomerular Filtration Rate 75 ML/MIN 63 ML/MIN 70 ML/MIN 70 ML/MIN Lactic Acid Level 0.6 mmol/L 1.1 mmol/L Protein Corrected Calcium 7.8 MG/DL 7.9 MG/DL 8.2 MG/DL 8.5 MG/DL Albumin 1.6 GM/DL 1.8 GM/DL Alkaline Phosphatase 129 U/L 182 U/L Aspartate Amino Transf (AST/SGOT) 8 U/L 14 U/L Alanine Aminotransferase (ALT/SGPT) LESS THAN 6 U/L 8 U/L Total Bilirubin 0.3 MG/DL 0.4 MG/DL Triglycerides Level 150 MG/DL Imaging Last Impressions Chest X-Ray 06/25/17 0600 Signed Impressions: Service Date/Time: May 05:34 - CONCLUSION: Worsening consolidation likely related to worsening edema. Forrest Doshi MD Upper Extremity Ultrasound 06/25/17 0000 Signed Impressions: Service Date/Time: May 10:22 - CONCLUSION: Normal examination. Forrest Green MD Abdomen/Pelvis CT 06/23/17 0000 Signed Impressions: Service Date/Time: Friday, June 23, 2017 11:40 - CONCLUSION: Pneumoperitoneum worrisome for perforation of hollow viscus. No acute vascular findings. Forrest Green MD Abdomen X-Ray 06/23/17 0000 Signed Impressions: Service Date/Time: Friday, June 23, 2017 10:13 - CONCLUSION: 1. Findings consistent with improving partial small bowel obstruction. Maynor Shepard MD Physical Exam CONSTITUTIONAL/GENERAL: This is an adequately nourished patient, in no apparent distress. TUBES/LINES/DRAINS: SKIN: No jaundice, rashes, or lesions. Skin temperature appropriate. Not diaphoretic. EYES: Pupils equal and round and reactive. Extraocular motions intact. No scleral icterus. No injection or drainage. Fundi not examined. CARDIOVASCULAR: Regular rate and rhythm without murmurs, gallops, or rubs. No JVD. Peripheral pulses symmetric. Pacer in place L chest RESPIRATORY/CHEST: Symmetric, unlabored respirations. B/l rhonchi to auscultation. Breath sounds equal bilaterally. GASTROINTESTINAL: Abdomen post op, + distended. Stoma in place pink, witjh mild serosang d/c GENITOURINARY: Without palpable bladder distension. Laguna catheter in place. MUSCULOSKELETAL: Extremities with prominent clubbing, + LE edema. No joint tenderness or effusion noted. No calf tenderness. No mottling or clubbing. NEUROLOGICAL: awake, alert PSYCHIATRIC: unable to assess Assessment & Plan Remarks Bowel obstruction, recurrent with acute perforation and fecal peritonitis - sp emergent surgery - path P but no pseudomembaranes - stricture was discovered in op Recent C.diff, C.diff PCR negative Hypoxia, effusions ? ARDS High risk for surgery per cardiac eval'n Fuguria, C/ albicans Persisten leukocytosis cont zosyn cont fluconazole fu path fu WBC Discussed Condition With Zulema Aguiar MD Jun 26, 2017 13:58
--- NOTE | 2017-06-26 14:37 | PD.WCN.NOT ---
Wound Consult Description: Consult placed for New Colostomy per MARCUS Torres Communicated with: Patient NuryRN Recommendation: Empty pouch of effluent when 1/3-1/2 full Change appliance every 5-7 days and PRN before leaks Additional Information: Patient seen on [address] [place] [address] for ostomy assessment and teaching Ostomy Type: Colostomy Complete: Education materials ([employer] kit left at bedside for reinforcement of teaching and supplies to practice with) Educated patient on: Stoma size and appearance Emptying pouch when 1/3-1/2 full to avoid leaks and lifting Changing wafer every 5-7 days and PRN before leaks occur Additional information Patient seen on [address] [place] [address] for ostomy assessment and teaching. Patient awake, alert , and on high flow NC mask with no apparent distress. Patient was sitting up in bed during assessment. Patient right upper abdomen with edematous colostomy measuring 2 1/2" red, round, moist, moderately protruding, lumen noted in center of stoma with mucus noted. Appliance is intact and noted without leaks. There is minimal soft brown effluent noted in pouch that was not emptied at this time. Patient was resting in bed and had no questions at this time. Marimar Palm [facility] Jun 26, 2017 14:37
[2017-06-26] MEDS: FLUCONAZOLE 400 MG PREMIX BAG 200 ML IV SCH (15:22)
--- NOTE | 2017-06-26 15:42 | HHI.PR ---
Subjective Subjective Notes First seen about 830 am--- Mr. Gutierrez is very restless; short of breath---I personally notified Dr. Robbins with [facility] about change in condition; I also ordered ABG and reviewed CXR; Dr. Robbins at bedside to evaluate--- 80 mg Lasix given IV Again seen at 1515---patient not resting comfortably; on high flow NC Objective Vitals/I&O Vital Signs Date Time Temp Pulse Resp B/P (MAP) Pulse Ox O2 Delivery O2 Flow Rate FiO2 06/26/17 12:05 94 High Flow Nasal Cannula 30.00 60 06/26/17 12:00 91 06/26/17 12:00 98.9 28 121/66 (84) Labs Laboratory Tests Test 06/25/17 17:45 06/26/17 03:30 06/26/17 10:00 White Blood Count 16.1 16.7 Red Blood Count 2.56 3.21 Hemoglobin 7.2 8.7 Hematocrit 22.2 26.8 Mean Corpuscular Volume 86.8 83.7 Mean Corpuscular Hemoglobin 28.0 27.2 Mean Corpuscular Hemoglobin Concent 32.2 32.5 Red Cell Distribution Width 17.5 20.5 Platelet Count 61 64 Mean Platelet Volume 9.4 9.9 Blood Urea Nitrogen 30 29 Creatinine 1.05 1.05 Random Glucose 145 149 Total Protein 4.9 5.0 Calcium Level 7.0 7.3 Phosphorus Level 2.0 2.0 Magnesium Level 1.7 1.6 Sodium Level 145 148 Potassium Level 2.9 2.9 Chloride Level 112 110 Carbon Dioxide Level 22.8 26.4 Anion Gap 10 12 Estimat Glomerular Filtration Rate 70 70 Protein Corrected Calcium 8.2 8.5 Neutrophils (%) (Auto) 96.1 Lymphocytes (%) (Auto) 2.9 Monocytes (%) (Auto) 1.0 Eosinophils (%) (Auto) 0.0 Basophils (%) (Auto) 0.0 Neutrophils # (Auto) 16.0 Lymphocytes # (Auto) 0.5 Monocytes # (Auto) 0.2 Eosinophils # (Auto) 0.0 Basophils # (Auto) 0.0 CBC Comment AUTO DIFF Differential Comment AUTO DIFF CONFIRMED Albumin 1.8 Alkaline Phosphatase 182 Aspartate Amino Transf (AST/SGOT) 14 Alanine Aminotransferase (ALT/SGPT) 8 Total Bilirubin 0.4 Triglycerides Level 150 Blood Gas Puncture Site LT RADIAL Blood Gas Patient Temperature 98.6 Blood Gas HCO3 24 Blood Gas Base Excess 0.6 Blood Gas Oxygen Saturation 91 Arterial Blood pH 7.45 Arterial Blood Partial Pressure CO2 36 Arterial Blood Partial Pressure O2 66 Arterial Blood Oxygen Content 12.0 Arterial Blood Carboxyhemoglobin 0.3 Arterial Blood Methemoglobin 0.5 Blood Gas Hemoglobin 9.4 Oxygen Delivery Device HIGH-FLOW Blood Gas Liter Flow 40 Blood Gas Inspired Oxygen 60 Date/Time Source Procedure Growth Status 06/22/17 12:23 Blood Peripheral Aerobic Blood Culture - Preliminary NO GROWTH IN 4 DAYS Resulted 06/22/17 12:23 Blood Peripheral Anaerobic Blood Culture - Preliminary NO GROWTH IN 4 DAYS Resulted 06/22/17 04:20 Urine Catheterized Urine Urine Culture - Final Oumou Albicans Complete Cardiovascular: Regular Lungs: Upper airway course sound, Rhonchi Abdomen: Other (midline incision with MARCIE in place; no suction on battery pack ; colostomy edematous but pink---+ stool output in bag; AFIA with cloudy serous fluid ) Extremities: Other (Moderate BUE and BLE edema ) A/P Assessment and Plan 66 year old male POD3 exlap; TOR; partial colectomy, takedown of splenic flexure , colostomy -CXR reviewed--- extensive pulm edema -Dr. Robbins with [facility] notified ---- 80 mg Lasix and ABG reviewed -Okay to continue sips of clears -Continue antibiotics---Zosyn/Flagyl/Diflucan -Continue TPN -Continue routine AFIA care -PT eval and treat; OOB to chair if respiratory status is stabilized -Consult to park manager for colostomy care and teaching Attending Statement patient seen at bedside sob rotating equipment specialist addressing possible intubation discussed with at bedside ostomy pink viable Attestation The exam, history, and the medical decision-making described in the above note were completed with the assistance of the mid-level provider. I reviewed and agree with the findings presented. I attest that I had a [id number] encounter with the patient on the same day, and personally performed and documented my assessment and findings in the medical record. Marianne Torres Jun 26, 2017 15:42 Michael Soares MD Jun 29, 2017 21:44
--- NOTE | 2017-06-26 15:52 | HHI.CCPN ---
Subjective Remarks/Hospital Course 66-year-old male currently residing at the rehabilitation facility comes in due to fever with low blood pressure, abdominal pain and vomiting. He has history of bowel obstruction in the past. He also was diagnosed with C. difficile. Per patient his abdominal pain never got any better since being in the hospital about a month ago. However, he does say that it has gotten worse recently. He vomited today. He says he continues to have diarrhea. He was found to be febrile. He denies chest pain or shortness of breath. He was admitted in the end of April for bowel obstruction and presented in similar fashion at that time. 06/22: Seen and examined. Currently not on vasopressors. Patient had a large emesis and "feels better" now. Abdomen distended. Patient states she doesn't have a local varitypist. Pacemaker was "checked" prior to arriving here from [place] within the past several months. 06/23: Afebrile. Chief complaint of abdominal pain bilateral lower quadrants infraumbilical. One bowel movement documented however patient denies.. Very rare flatus. Plan for CT angiogram of the abdomen today 06/24: History status post exploratory lap, partial colectomy with takedown from the splenic flexure creation of colostomy secondary to perforated viscus, perforation at site of splenic flexure with lysis of adhesions from stomach, small bowel and splenic flexure adhered to colon.. Patient received 4500 cc crystalloid. EBL 150. 500 cc urine output. 100 cc NG tube. Patient was extubated overnight with central line placed. Currently on noninvasive ventilation remains acidotic. Will check chest x-ray this AM monitor volume status along with CVP. Pain appears controlled. Subjective 06/25: Resting comfortably in bed. Complaining of "tremors". Afebrile. Positive stool from ostomy 1 residual bowel movement overnight. PECOS drain still not sealing. 06/26: less comfortable this morning on my evaluation. tachypneic and severely dyspneic. CXR with evidence of severe volume overload. 5L up from admission. patient endorses severe SOB and orthopnea. no chest pain. ROS otherwise negative. Objective Vital Signs Date Time Temp Pulse Resp B/P (MAP) Pulse Ox O2 Delivery O2 Flow Rate FiO2 06/26/17 12:05 94 High Flow Nasal Cannula 30.00 60 06/26/17 12:00 91 06/26/17 12:00 98.9 28 121/66 (84) Intake and Output 06/26/17 06/26/17 06/27/17 08:00 16:00 00:00 Intake Total 1740 ml 100 ml Output Total 4365 ml Balance -2625 ml 100 ml Result Diagram: 06/26/17 0330 06/26/17 0330 Other Results Laboratory Tests Test 06/26/17 10:00 Blood Gas Puncture Site LT RADIAL Blood Gas Patient Temperature 98.6 Blood Gas HCO3 24 mmol/L (22-26) Blood Gas Base Excess 0.6 mmol/L (-2-2) Blood Gas Oxygen Saturation 91 % (90-100) Arterial Blood pH 7.45 (7.380-7.420) Arterial Blood Partial Pressure CO2 36 mmHg (38-42) Arterial Blood Partial Pressure O2 66 mmHg (61-120) Arterial Blood Oxygen Content 12.0 Vol % (12.0-20.0) Arterial Blood Carboxyhemoglobin 0.3 % (0-4) Arterial Blood Methemoglobin 0.5 % (0-2) Blood Gas Hemoglobin 9.4 G/DL (12.0-16.0) Oxygen Delivery Device HIGH-FLOW Blood Gas Liter Flow 40 L/M Blood Gas Inspired Oxygen 60 % Imaging Last Impressions Chest X-Ray 06/25/17 0600 Signed Impressions: Service Date/Time: May 05:34 - CONCLUSION: Worsening consolidation likely related to worsening edema. Forrest Doshi MD Abdomen/Pelvis CT 06/23/17 0000 Signed Impressions: Service Date/Time: Friday, June 23, 2017 11:40 - CONCLUSION: Pneumoperitoneum worrisome for perforation of hollow viscus. No acute vascular findings. Forrest Green MD Abdomen X-Ray 06/23/17 0000 Signed Impressions: Service Date/Time: Friday, June 23, 2017 10:13 - CONCLUSION: 1. Findings consistent with improving partial small bowel obstruction. Maynor Shepard MD Objective Remarks GENERAL: 66-year-old male, sitting in bed on high flow NC SKIN: Warm and dry. Well perfused HEAD: Atraumatic. Normocephalic. EYES: Pupils equal and round around 3 mm bilaterally and reactive. No scleral icterus. No injection or drainage. ENT: No nasal bleeding or discharge. NECK: Trachea midline. No JVD. CARDIOVASCULAR: RRR. sinus by tele. RESPIRATORY: bibasilar rales up to mid-chest posteriorly. tachypneic. using accessory muscles. GASTROINTESTINAL: Abdomen midline incision is clean dry and intact. Right lower quadrant ostomy is pink with some brown stool noted. MUSCULOSKELETAL: Extremities with trace lower extremity bilateral edema. No obvious deformities. NEUROLOGICAL: Awake and alert. RASS 0. No gross focal/sensory deficits. Follows commands in all 4 extremities. Date of Insertion: Jun 23, 2017 Line: Central Venous Catheter Side: Right Location: Subclavian A/P Assessment and Plan Assessment: 66yM s/p colonic perforation and intra-abdominal contamination, now with pulmonary edema and volume overload. continue forced diuresis. lasix 80mg iv STAT for respiratory distress on exam today. on high flow NC and at risk for intubation if we cannot change the course of his respiratory distress. critically ill this morning on my eval. 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 Dunham has seen Currently on TPN goal 70 cc now with lipids. Resp: Postoperative respiratory failure COPD Right upper lobe calcified granuloma Acute Pulmonary Edema Incentive spirometry while awake Currently on albuterol/ipratropium aerosols every 4 hours with albuterol aerosols every 2 hours when necessary dyspnea 3% hypertonic saline aerosols every 4 hours 5 days for aerosolized mucolytic lasix 80mg iv x 1 given volume overload on high flow NC, 80% fio2 on my initial eval. if no improvements soon, may require re-intubation. GI: Postop day #3 Exploratory Laparotomy, partial colectomy with takedown splenic flexure and colostomy placement secondary to perforated viscus, perforation at site of splenic flexure with lysis of adhesions from stomach, small bowel and spleen Dr. Soares Admission diagnosis Large bowel obstruction History of internal/external hemorrhoids UC Sigmoid/descending colonic ulcers Liver cysts Hypoalbuminemia Abdominal ascites CT abdomen/pelvis on admission revealed dilatation the small bowel. Ascending and transverse colon. Transition point the distal transverse colon. Collapsed descending colon. Cecum thickening. CT angiogram 06/23 revealed perforated viscus/pneumoperitoneum Last admission status post colonoscopy 2. Noted 05/27 unable to transverse sigmoid colon due to stricture. Unable to transverse transverse colon due to stricture 06/03. Sigmoid ulcers. C. difficile positive. Currently on mesalamine 800 mg 3 times a day prednisone 20 mg daily - currently on hydrocortisone 50 mg every 6 hours NG tube to LIWS. Minimal output overnight GI/general surgery consult. Dr. Soares Home medication famotidine 20 mg twice a day for GI prophylaxis. Currently IV AFIA -560 cc ss right lower quadrant 06/24 - TPN at 70 cc an hour with 20% lipids daily : Laguna catheter if indicated for accurate I's and O's in a critically ill patient Endo: IDDM Currently holding insulin detemir 20 night with novulin R sliding scale Will continue sliding scale insulin Novulin R every 4 hours high with Accu- Cheks to maintain euglycemia Continue 20 units insulin to TPN and add insulin detemir 25 units twice a day today 06/25. Readjust remainder insulin to TPN within next 24 hours Renal: Chronic kidney disease stage II 1.1 left renal cyst/tiny right infrarenal cyst Creatinine currently within normal limits Monitor urine output Accurate I's and O's Heme: Normocytic anemia Thrombocytopenia Leukocytosis Monitor CBC daily. Follow trends transfuse Previous admission with thrombocytopenia likely secondary infection/DIC. Transfused 1 unit PRBCs 06/25 ID: History of C. difficile Funguria - asx He was originally on metronidazole 500 mg every 8 hours and vancomycin 125 mg by mouth every 6 hours Infectious disease following. Currently on piperacillin/tazobactam 4.5 g IV every 6 hours and 400 mg IV daily Appears to being treated with C. difficile. C. difficile negative this admission Blood cultures 2, no growth today. Culture 06/22 - C. albicans FEN: Hypokalemia Hypocalcemia Replacing electrolytes as clinically indicated 40 mEq KCl IV 2. 2 g mag sulfate. Repeat electrolytes this afternoon MSK: Osteoarthritis Holding calcium carbonate/cholecalciferol 500 mg last 400 units 1 tablet twice a day. Resume when clinically indicated PT evaluate and treat Access -Right subclavian CVL placed 06/23 day #4 Prophylaxis - GI -famotidine - DVT - SCD/heparin subcutaneous held prior surgery Critical care time: 34 minutes, exclusive of separately billable procedures. rising o2 requirement, worsening acute dyspnea. life-threatening and may require re-intubation if we do not change the course of his disease today. Sedrick Robbins MD Jun 26, 2017 15:52
[2017-06-26] MEDS: RESP: ALBUTEROL 2.5 MG/3 ML NEB (PRN) NEB (16:25)
[2017-06-26] MEDS: ENOXAPARIN SODIUM 40 MG/0.4 ML SYRINGE SQ SCH (16:30)
--- NOTE | 2017-06-26 16:32 | EKG ---
Date Performed: 06/26/2017 Time Performed: 03:15:34 PTAGE: 66 years EKG: Atrial fibrillation with rapid ventricular response with PVC(s). Left axis deviation IV con duction defect Inferior infarct - age undetermined Ant/septal and lateral ST-T changes may be due to myocardial ischemia Abnormal ECG Compared to PREVIOUS TRACING , the patient is now in atrial fibrillation with rapid ventricular rate. PREVIOUS TRACIN06/23/2017 13.29 DOCTOR: Julee Yen Interpretating Date/Time 06/26/2017 16:31:48
[2017-06-26 16:34] LABS: HEPARIN AB OD 0.074 O.D. (0.000-0.300); HEPARIN INDUCED PLATELET AB NEGATIVE (NEGATIVE)
[2017-06-26 17:11] LABS: MAGNESIUM 1.6 MG/DL (1.5-2.5)
[2017-06-26] MEDS: FAT EMULSION 20% INJ 250 ML (Daily over 8 hours) IV-CENTRAL SCH (20:58)
[2017-06-26] MEDS: DONEPEZIL HCL 5 MG TAB PO SCH (20:59)
[2017-06-27] VITALS (14 sets, daily range): BP systolic 113–135; BP diastolic 65–91; PULSE 86–113; RESP 20–30; TEMP 97.6–99.2; O2SAT 88–99
[2017-06-27] MEDS: METOPROLOL TARTRATE 5 MG/5 ML VIAL IV PUSH PRN ×4 (00:30→10:31)
[2017-06-27] MEDS: MORPHINE SULFATE 4 MG/ML INJ IV PUSH PRN ×4 (00:40→22:49)
[2017-06-27] MEDS: RESP: ALBUTEROL 2.5 MG/IPRATROPIUM 0.5 MG NEB (SCH) NEB ×6 (01:05→20:12)
[2017-06-27] MEDS: RESP: SODIUM CHLORIDE 3% 4 ML NEB NEB SCH ×6 (01:06→20:12)
[2017-06-27] MEDS: PIPERACIL-TAZO 4.5 GM PREMIX 100 ML IV SCH ×4 (01:49→20:15)
[2017-06-27] MEDS: MULTIVITAMIN INJ 10 ML, FOLIC ACID INJ 1 MG, INSULIN HUMAN REGULAR INJ 30 UNITS in AMIN... IV-CENTRAL SCH (02:33)
[2017-06-27 03:14] LABS: MAGNESIUM 1.8 MG/DL (1.5-2.5)
[2017-06-27 03:17] LABS: POTASSIUM 2.8 MEQ/L (3.5-5.1)
[2017-06-27] MEDS: POTASSIUM CHLOR 40 MEQ PREMIX 100 ML IV PRN ×4 (03:45→22:26)
[2017-06-27] MEDS: CHLORHEXIDINE GLUCONATE 2 % 1 PACK (2 CLOTHS) TOP SCH (04:00)
[2017-06-27] MEDS: INSULIN NovoLIN REGULAR SUPPLEMENTAL SCALE SQ SCH ×6 (04:00→23:55)
[2017-06-27] MEDS: HYDROCORTISONE SOD SUCCINATE 100 MG VIAL IV PUSH SCH ×3 (05:06→21:25)
[2017-06-27] MEDS: MESALAMINE HD 800 MG DELAYED RELEASE TAB PO SCH ×3 (05:24→21:24)
[2017-06-27 08:53] LABS: HEMATOCRIT 25.5 % (39.0-51.0); MEAN CELL VOLUME 83.2 FL (80.0-100.0); MEAN CORPUSCULAR HEMOGLOBIN 27.7 PG (27.0-34.0); MEAN CORPUSCULAR HGB CONC 33.2 % (32.0-36.0); PLATELET COUNT 54 TH/MM3 (150-450); RED BLOOD COUNT 3.06 MIL/MM3 (4.50-5.90); RED CELL DISTRIBUTION WIDTH 19.4 % (11.6-17.2); REVIEW FLAG FINAL; WHITE BLOOD COUNT 12.6 TH/MM3 (4.0-11.0)
[2017-06-27] MEDS: SODIUM CHLORIDE 0.9% FLUSH 10 ML FLUSH IV FLUSH SCH ×2 (08:59→20:16)
[2017-06-27] MEDS: ASCORBIC ACID 500 MG TAB PO SCH ×2 (09:00→20:16)
[2017-06-27] MEDS: INSULIN DETEMIR 100 UNITS/ML VIAL SQ SCH ×2 (09:00→20:17)
[2017-06-27] MEDS: FLUoxetine HCL 20 MG CAP PO SCH (09:00)
[2017-06-27 09:14] LABS: BICARBONATE 27.8 MEQ/L (21.0-32.0); POTASSIUM 3.5 MEQ/L (3.5-5.1)
[2017-06-27] MEDS: FAMOTIDINE 20 MG/2 ML VIAL IV PUSH SCH ×2 (09:17→20:16)
[2017-06-27] MEDS ORDERED: FUROSEMIDE 100 MG/10 ML VIAL IV PUSH ONE (09:30)
[2017-06-27] MEDS ORDERED: MAGNESIUM SULFATE 4 GM PREMIX 100 ML IV ONE (09:30)
[2017-06-27] MEDS ORDERED: POTASSIUM CHLOR 20 MEQ PREMIX 100 ML IV ONE (09:30)
[2017-06-27] MEDS ORDERED: POTASSIUM CHLOR 40 MEQ PREMIX 100 ML IV ONE (09:30)
--- NOTE | 2017-06-27 09:47 | HHI.CCPN ---
Subjective Remarks/Hospital Course 66-year-old male currently residing at the rehabilitation facility comes in due to fever with low blood pressure, abdominal pain and vomiting. He has history of bowel obstruction in the past. He also was diagnosed with C. difficile. Per patient his abdominal pain never got any better since being in the hospital about a month ago. However, he does say that it has gotten worse recently. He vomited today. He says he continues to have diarrhea. He was found to be febrile. He denies chest pain or shortness of breath. He was admitted in the end of April for bowel obstruction and presented in similar fashion at that time. 06/22: Seen and examined. Currently not on vasopressors. Patient had a large emesis and "feels better" now. Abdomen distended. 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 Pacemaker was "checked" prior to arriving here from [place] within the past several months. 06/23: Afebrile. Chief complaint of abdominal pain bilateral lower quadrants infraumbilical. One bowel movement documented however patient denies.. Very rare flatus. Plan for CT angiogram of the abdomen today 06/24: History status post exploratory lap, partial colectomy with takedown from the splenic flexure creation of colostomy secondary to perforated viscus, perforation at site of splenic flexure with lysis of adhesions from stomach, small bowel and splenic flexure adhered to colon.. Patient received 4500 cc crystalloid. EBL 150. 500 cc urine output. 100 cc NG tube. Patient was extubated overnight with central line placed. Currently on noninvasive ventilation remains acidotic. Will check chest x-ray this AM monitor volume status along with CVP. Pain appears controlled. 06/25: Resting comfortably in bed. Complaining of "tremors". Afebrile. Positive stool from ostomy 1 residual bowel movement overnight. PECOS drain still not sealing. 06/26: less comfortable this morning on my evaluation. tachypneic and severely dyspneic. CXR with evidence of severe volume overload. 5L up from admission. patient endorses severe SOB and orthopnea. no chest pain. ROS otherwise negative. Subjective 06/27: new-onset afib RVR this AM, HR in 160s. recheck labs, low K, low Mg. still volume overloaded on clinical exam. +jvd. on HF NC still, 50% fio2. good diuresis yesterday. suspect new-onset afib RVR is combination of volume overload and electrolyte abn. patient still complains of dyspnea. no CP. no other changes. Objective Vital Signs Date Time Temp Pulse Resp B/P (MAP) Pulse Ox O2 Delivery O2 Flow Rate FiO2 06/27/17 08:12 96 High Flow Nasal Cannula 30.00 100 06/27/17 06:00 95 06/27/17 04:00 98.7 22 120/65 (83) Intake and Output 06/27/17 06/27/17 06/28/17 08:00 16:00 00:00 Intake Total 1100.5 ml Output Total 2170 ml Balance -1069.5 ml Result Diagram: 06/27/17 0806/27/17829 Other Results Laboratory Tests Test 06/26/17 10:00 Blood Gas Puncture Site LT RADIAL Blood Gas Patient Temperature 98.6 Blood Gas HCO3 24 mmol/L (22-26) Blood Gas Base Excess 0.6 mmol/L (-2-2) Blood Gas Oxygen Saturation 91 % (90-100) Arterial Blood pH 7.45 (7.380-7.420) Arterial Blood Partial Pressure CO2 36 mmHg (38-42) Arterial Blood Partial Pressure O2 66 mmHg (61-120) Arterial Blood Oxygen Content 12.0 Vol % (12.0-20.0) Arterial Blood Carboxyhemoglobin 0.3 % (0-4) Arterial Blood Methemoglobin 0.5 % (0-2) Blood Gas Hemoglobin 9.4 G/DL (12.0-16.0) Oxygen Delivery Device HIGH-FLOW Blood Gas Liter Flow 40 L/M Blood Gas Inspired Oxygen 60 % Imaging Last Impressions Chest X-Ray 06/25/17 0600 Signed Impressions: Service Date/Time: May 05:34 - CONCLUSION: Worsening consolidation likely related to worsening edema. Forrest Doshi MD Abdomen/Pelvis CT 06/23/17 0000 Signed Impressions: Service Date/Time: Friday, June 23, 2017 11:40 - CONCLUSION: Pneumoperitoneum worrisome for perforation of hollow viscus. No acute vascular findings. Forrest Green MD Abdomen X-Ray 06/23/17 0000 Signed Impressions: Service Date/Time: Friday, June 23, 2017 10:13 - CONCLUSION: 1. Findings consistent with improving partial small bowel obstruction. Maynor Shepard MD Objective Remarks GENERAL: 66-year-old male, sitting in bed on high flow NC, still in moderate distress. SKIN: Warm and dry. Well perfused HEAD: Atraumatic. Normocephalic. EYES: Pupils equal and round around 3 mm bilaterally and reactive. No scleral icterus. No injection or drainage. ENT: No nasal bleeding or discharge. NECK: Trachea midline. +JVD. CARDIOVASCULAR: tachycardic rate to 160s, irregularly irregular rhythm. borderline hypotensive, 90s/40s. afib by tele. RESPIRATORY: bibasilar rales persist. still tachypneic. on high flow NC. GASTROINTESTINAL: Abdomen midline incision is clean dry and intact. Right lower quadrant ostomy is pink with some brown stool noted. MUSCULOSKELETAL: Extremities with 1+ lower extremity bilateral edema. No obvious deformities. NEUROLOGICAL: Awake and alert. RASS 0. No gross focal/sensory deficits. Follows commands in all 4 extremities. Date of Insertion: Jun 23, 2017 Line: Central Venous Catheter Side: Right Location: Subclavian A/P Assessment and Plan Assessment: 66yM s/p colonic perforation and intra-abdominal contamination, persistent volume overload and pulmonary edema. new afib RVR with borderline hemodynamic instability. will continue forced diuresis, aggressive electrolyte replacement. still evidence of respiratory distress on exam and remains on high flow NC and at risk for intubation if we cannot change the course of his respiratory distress. off pathway. remains critically ill despite aggressive measures yesterday and today. Neuro/Psych: Acute toxic metabolic encephalopathy secondary to sepsis Dementia disorder NOS Depression NOS Peripheral neuropathy Currently holding donepezil 5 mg at night for dementia Acetaminophen (Ofirmev) IV 1 g every 8 hours when necessary for fever Morphine sulfate 2-4 mg every 2 hours as needed for pain management Continue Fluoxetine 40 mill grams daily Holding Gabapentin 100 mg 3 times a day per family request due to tremors CV: History of third-degree heart block - dual chambered pacemaker placed 04/11 new-onset afib RVR 06/27 History of Hypertension Lactic acidosis - resolved History of Atrial fibrillation Holding carvedilol 3.125 mg twice a day lisinopril 2.5 mg daily light of hypotension Cardiology - Dr. Dunham has seen Currently on TPN goal 70 cc now with lipids. aggressive K and Mg replacement with ongoing diuresis. may require vasopressors for hypotension. Resp: Postoperative respiratory failure - persistent. COPD Right upper lobe calcified granuloma Acute Pulmonary Edema - persistent. Incentive spirometry while awake Currently on albuterol/ipratropium aerosols every 4 hours with albuterol aerosols every 2 hours when necessary dyspnea 3% hypertonic saline aerosols every 4 hours 5 days for aerosolized mucolytic lasix 80mg iv x 1 again today. on high flow NC, 50% fio2. wean fio2 as tolerated. GI: Postop day #4 Exploratory Laparotomy, partial colectomy with takedown splenic flexure and colostomy placement secondary to perforated viscus, perforation at site of splenic flexure with lysis of adhesions from stomach, small bowel and spleen Dr. Soares Admission diagnosis Large bowel obstruction History of internal/external hemorrhoids UC Sigmoid/descending colonic ulcers Liver cysts Hypoalbuminemia Abdominal ascites Hypokalemia Hypomagnesemia Hypernatremia CT abdomen/pelvis on admission revealed dilatation the small bowel. Ascending and transverse colon. Transition point the distal transverse colon. Collapsed descending colon. Cecum thickening. CT angiogram 06/23 revealed perforated viscus/pneumoperitoneum Last admission status post colonoscopy 2. Noted 05/27 unable to transverse sigmoid colon due to stricture. Unable to transverse transverse colon due to stricture 06/03. Sigmoid ulcers. C. difficile positive. Currently on mesalamine 800 mg 3 times a day prednisone 20 mg daily - currently on hydrocortisone 50 mg every 6 hours NG tube to LIWS. Minimal output overnight GI/general surgery consult. Dr. Soares Home medication famotidine 20 mg twice a day for GI prophylaxis. Currently IV 06/24 - TPN at 70 cc an hour with 20% lipids daily Have spoken with TPN pharmacist to adjust electrolytes in TPN kcl 60meq + 4gm mgso4. : Laguna catheter if indicated for accurate I's and O's in a critically ill patient Endo: IDDM Will continue sliding scale insulin Novulin R every 4 hours high with Accu- Cheks to maintain euglycemia Continue 30 units insulin to TPN and insulin detemir 25 units twice a day today 06/25. Renal: Chronic kidney disease stage II 1.1 left renal cyst/tiny right infrarenal cyst Acute kidney disease (on CKD 2) slowly improving. Monitor urine output Accurate I's and O's Heme: Normocytic anemia Thrombocytopenia Leukocytosis Monitor CBC daily. Follow trends Previous admission with thrombocytopenia likely secondary infection/DIC. Transfused 1 unit PRBCs 06/25 ID: History of C. difficile Funguria - asx He was originally on metronidazole 500 mg every 8 hours and vancomycin 125 mg by mouth every 6 hours Infectious disease following. Currently on piperacillin/tazobactam 4.5 g IV every 6 hours and 400 mg IV daily Appears to being treated with C. difficile. C. difficile negative this admission Blood cultures 2, no growth today. Culture 06/22 - C. albicans FEN: Hypokalemia Hypomagnesemia Hypocalcemia Replacing electrolytes as clinically indicated MSK: Osteoarthritis Holding calcium carbonate/cholecalciferol 500 mg last 400 units 1 tablet twice a day. Resume when clinically indicated PT evaluate and treat Access -Right subclavian CVL placed 06/23 day #5. keep today with new-onset afib RVR and high-dose electrolyte replacement. Prophylaxis - GI -famotidine - DVT - SCD/heparin subcutaneous held prior surgery Critical care time: 32 minutes, exclusive of separately billable procedures. persistent respiratory failure requiring NIPPV/High flow NC and now new-onset afib RVR, borderline unstable. continues to have ongoing life-threatening multiple organ dysfunction. Sedrick Robbins MD Jun 27, 2017 09:47
--- NOTE | 2017-06-27 10:56 | HHI.IDPN ---
Subjective Subjective Remarks colon path showed ischemic colitis no fever + stooling NPO improved breathing Antibiotics zosyn fluconazole Allergies: Coded Allergies: No Known Allergies (Unverified Adverse Reaction, Unknown, 05/25/17) Objective . Vital Signs Date Time Temp Pulse Resp B/P (MAP) Pulse Ox O2 Delivery O2 Flow Rate FiO2 06/27/17 08:12 96 High Flow Nasal Cannula 30.00 100 06/27/17 07:00 Nasal Cannula 30.00 55 Humidified 06/27/17 06:00 95 06/27/17 04:00 98.7 100 22 120/65 (83) 91 06/27/17 04:00 92 High Flow Nasal Cannula 30.00 75 06/27/17 04:00 97 06/27/17 02:00 98 06/27/17 00:00 99.2 97 26 135/69 (91) 91 06/27/17 00:00 100 06/26/17 22:00 94 06/26/17 21:06 92 High Flow Nasal Cannula 30.00 55 06/26/17 20:00 100 06/26/17 20:00 Nasal Cannula 30.00 55 Humidified 06/26/17 20:00 99.0 108 26 134/99 (111) 92 06/26/17 18:00 96 06/26/17 16:00 98.6 91 22 141/65 (90) 87 06/26/17 16:00 91 06/26/17 14:00 94 06/26/17 12:05 94 High Flow Nasal Cannula 30.00 60 06/26/17 12:00 91 06/26/17 12:00 98.9 91 28 121/66 (84) 89 . Laboratory Tests Test 06/25/17 17:45 06/26/17 03:30 06/27/17 08:30 White Blood Count 16.1 TH/MM3 16.7 TH/MM3 12.6 TH/MM3 Red Blood Count 2.56 MIL/MM3 3.21 MIL/MM3 3.06 MIL/MM3 Hemoglobin 7.2 GM/DL 8.7 GM/DL 8.5 GM/DL Hematocrit 22.2 % 26.8 % 25.5 % Mean Corpuscular Volume 86.8 FL 83.7 FL 83.2 FL Mean Corpuscular Hemoglobin 28.0 PG 27.2 PG 27.7 PG Mean Corpuscular Hemoglobin Concent 32.2 % 32.5 % 33.2 % Red Cell Distribution Width 17.5 % 20.5 % 19.4 % Platelet Count 61 TH/MM3 64 TH/MM3 54 TH/MM3 Mean Platelet Volume 9.4 FL 9.9 FL 10.5 FL Neutrophils (%) (Auto) 96.1 % Lymphocytes (%) (Auto) 2.9 % Monocytes (%) (Auto) 1.0 % Eosinophils (%) (Auto) 0.0 % Basophils (%) (Auto) 0.0 % Neutrophils # (Auto) 16.0 TH/MM3 Lymphocytes # (Auto) 0.5 TH/MM3 Monocytes # (Auto) 0.2 TH/MM3 Eosinophils # (Auto) 0.0 TH/MM3 Basophils # (Auto) 0.0 TH/MM3 CBC Comment AUTO DIFF Differential Comment AUTO DIFF CONFIRMED Laboratory Tests Test 06/25/17 17:45 06/26/17 03:30 06/26/17 16:05 06/27/17 02:45 Blood Urea Nitrogen 30 MG/DL 29 MG/DL Creatinine 1.05 MG/DL 1.05 MG/DL Random Glucose 145 MG/DL 149 MG/DL Total Protein 4.9 GM/DL 5.0 GM/DL Calcium Level 7.0 MG/DL 7.3 MG/DL Phosphorus Level 2.0 MG/DL 2.0 MG/DL 3.0 MG/DL Magnesium Level 1.7 MG/DL 1.6 MG/DL 1.6 MG/DL 1.8 MG/DL Sodium Level 145 MEQ/L 148 MEQ/L Potassium Level 2.9 MEQ/L 2.9 MEQ/L 3.0 MEQ/L 2.8 MEQ/L Chloride Level 112 MEQ/L 110 MEQ/L Carbon Dioxide Level 22.8 MEQ/L 26.4 MEQ/L Anion Gap 10 MEQ/L 12 MEQ/L Estimat Glomerular Filtration Rate 70 ML/MIN 70 ML/MIN Protein Corrected Calcium 8.2 MG/DL 8.5 MG/DL Albumin 1.8 GM/DL Alkaline Phosphatase 182 U/L Aspartate Amino Transf (AST/SGOT) 14 U/L Alanine Aminotransferase (ALT/SGPT) 8 U/L Total Bilirubin 0.4 MG/DL Triglycerides Level 150 MG/DL Test 06/27/17 08:30 Blood Urea Nitrogen 28 MG/DL Creatinine 0.95 MG/DL Random Glucose 142 MG/DL Calcium Level 7.6 MG/DL Sodium Level 146 MEQ/L Potassium Level 3.5 MEQ/L Chloride Level 110 MEQ/L Carbon Dioxide Level 27.8 MEQ/L Anion Gap 8 MEQ/L Estimat Glomerular Filtration Rate 79 ML/MIN Imaging Last Impressions Chest X-Ray 06/26/17 0600 Signed Impressions: Service Date/Time: Monday, June 26, 2017 04:07 - CONCLUSION: Severe bilateral airspace consolidation, worsened in the right lower lung zone and slightly improved in the left midlung zone. Forrest Santos MD Upper Extremity Ultrasound 06/25/17 0000 Signed Impressions: Service Date/Time: May 10:22 - CONCLUSION: Normal examination. Forrest Green MD Abdomen/Pelvis CT 06/23/17 0000 Signed Impressions: Service Date/Time: Friday, June 23, 2017 11:40 - CONCLUSION: Pneumoperitoneum worrisome for perforation of hollow viscus. No acute vascular findings. Forrest Green MD Abdomen X-Ray 06/23/17 0000 Signed Impressions: Service Date/Time: Friday, June 23, 2017 10:13 - CONCLUSION: 1. Findings consistent with improving partial small bowel obstruction. Maynor Shepard MD Physical Exam CONSTITUTIONAL/GENERAL: This is an adequately nourished patient, in no apparent distress. TUBES/LINES/DRAINS: SKIN: No jaundice, rashes, or lesions. Skin temperature appropriate. Not diaphoretic. EYES: Pupils equal and round and reactive. Extraocular motions intact. No scleral icterus. No injection or drainage. Fundi not examined. CARDIOVASCULAR: Regular rate and rhythm without murmurs, gallops, or rubs. No JVD. Peripheral pulses symmetric. Pacer in place L chest RESPIRATORY/CHEST: Symmetric, unlabored respirations. R sided rhonchi to auscultation. Breath sounds equal bilaterally. GASTROINTESTINAL: Abdomen soft, not tender not distended. Stoma in place pink , witjh mild serosang d/c GENITOURINARY: Without palpable bladder distension. Laguna catheter in place with clear yellow urine MUSCULOSKELETAL: Extremities with prominent clubbing, + LE edema. No joint tenderness or effusion noted. No calf tenderness. No mottling or clubbing. NEUROLOGICAL: awake, alert PSYCHIATRIC: calm and coopperatuive Assessment & Plan Remarks Bowel obstruction, recurrent with acute perforation and fecal peritonitis - sp emergent surgery: resection plus colostomy - path w ischemia - stricture was discovered in op Recent C.diff, C.diff PCR negative Hypoxia, effusions ? ARDS High risk for surgery per cardiac eval'n Fuguria, C/ albicans Persisten leukocytosis - going down Thjrobocytopenia - new ? abx side effectsd New issue: likely PNA cont zosyn cont fluconazole muro WBC, plts chk sputum clx Discussed Condition With Zulema Aguiar MD Jun 27, 2017 10:56
--- NOTE | 2017-06-27 14:40 | HHI.PR ---
Subjective Subjective Notes Responsive, mildly uncomfortable Objective Vitals/I&O Vital Signs Date Time Temp Pulse Resp B/P (MAP) Pulse Ox O2 Delivery O2 Flow Rate FiO2 06/27/17 12:00 95 06/27/17 12:00 98.5 30 113/69 (84) 88 06/27/17 08:12 High Flow Nasal Cannula 30.00 100 Labs Laboratory Tests Test 06/26/17 16:05 06/27/17 02:45 06/27/17 08:30 Potassium Level 3.0 2.8 3.5 Phosphorus Level 3.0 Magnesium Level 1.6 1.8 White Blood Count 12.6 Red Blood Count 3.06 Hemoglobin 8.5 Hematocrit 25.5 Mean Corpuscular Volume 83.2 Mean Corpuscular Hemoglobin 27.7 Mean Corpuscular Hemoglobin Concent 33.2 Red Cell Distribution Width 19.4 Platelet Count 54 Mean Platelet Volume 10.5 Blood Urea Nitrogen 28 Creatinine 0.95 Random Glucose 142 Calcium Level 7.6 Sodium Level 146 Chloride Level 110 Carbon Dioxide Level 27.8 Anion Gap 8 Estimat Glomerular Filtration Rate 79 Date/Time Source Procedure Growth Status 06/22/17 12:23 Blood Peripheral Aerobic Blood Culture - Final NO GROWTH IN 5 DAYS Complete 06/22/17 12:23 Blood Peripheral Anaerobic Blood Culture - Final NO GROWTH IN 5 DAYS Complete 06/22/17 04:20 Urine Catheterized Urine Urine Culture - Final Oumou Albicans Complete Lungs: Upper airway course sound A/P Assessment and Plan Assessment and Plan 66 year old male POD4 exlap; TOR; partial colectomy, takedown of splenic flexure , colostomy -CXR reviewed--- extensive pulm edema, improved -Dr. Robbins with [facility] notified ---- 80 mg Lasix and ABG reviewed -Okay to continue sips of clears -Continue antibiotics---Zosyn/Flagyl/Diflucan -Continue TPN -Continue routine AFIA care -OOB to chair if respiratory status is stabilized Slick Sage MD Jun 27, 2017 14:40
[2017-06-27] MEDS: FLUCONAZOLE 400 MG PREMIX BAG 200 ML IV SCH (15:10)
[2017-06-27] MEDS: DEXTROSE 50% IN WATER 50 ML SYRINGE ONE ×2 (16:27→16:58)
[2017-06-27] MEDS ORDERED: DEXTROSE 50% IN WATER 50 ML SYRINGE IV ONE (17:00)
[2017-06-27] MEDS: ENOXAPARIN SODIUM 40 MG/0.4 ML SYRINGE SQ SCH (17:13)
[2017-06-27 17:23] LABS: MAGNESIUM 2.3 MG/DL (1.5-2.5)
[2017-06-27 17:29] LABS: POTASSIUM 2.6 MEQ/L (3.5-5.1)
[2017-06-27] MEDS: DEXTROSE 50% IN WATER 50 ML VIAL(D50) IV PUSH PRN ×4 (18:48→22:26)
[2017-06-27] MEDS: POTASSIUM PHOSPHATE IV-CENTRAL SCH ×9 (20:15)
[2017-06-27] MEDS: POTASSIUM CHLORIDE IV-CENTRAL SCH ×9 (20:15)
[2017-06-27] MEDS: FAT EMULSION 20% INJ 250 ML (Daily over 8 hours) IV-CENTRAL SCH (20:15)
[2017-06-27] MEDS: [UNRECOGNIZED DRUG - OTHER] IV-CENTRAL SCH ×9 (20:15)
[2017-06-27] MEDS: DONEPEZIL HCL 5 MG TAB PO SCH (20:16)
[2017-06-27] MEDS ORDERED: DEXTROSE 10% INJ 1,000 ML IV ONE (22:30)
[2017-06-27 23:24] LABS: C. DIFF EPI 027 PRESUMPTIVE NEGATIVE (NEGATIVE)
[2017-06-28] VITALS (17 sets, daily range): BP systolic 102–139; BP diastolic 60–77; PULSE 90–101; RESP 20–27; TEMP 96.7–98.8; O2SAT 87–100
[2017-06-28] MEDS: RESP: SODIUM CHLORIDE 3% 4 ML NEB NEB SCH ×6 (00:05→20:57)
[2017-06-28] MEDS: RESP: ALBUTEROL 2.5 MG/IPRATROPIUM 0.5 MG NEB (SCH) NEB ×5 (00:05→15:41)
[2017-06-28] MEDS: METOPROLOL TARTRATE 5 MG/5 ML VIAL IV PUSH PRN (00:28)
[2017-06-28] MEDS: PIPERACIL-TAZO 4.5 GM PREMIX 100 ML IV SCH ×4 (03:14→20:23)
[2017-06-28] MEDS: CHLORHEXIDINE GLUCONATE 2 % 1 PACK (2 CLOTHS) TOP SCH ×2 (04:00→23:47)
[2017-06-28] MEDS: INSULIN NovoLIN REGULAR SUPPLEMENTAL SCALE SQ SCH (04:00)
[2017-06-28] MEDS: MORPHINE SULFATE 4 MG/ML INJ IV PUSH PRN (04:57)
[2017-06-28] MEDS: MESALAMINE HD 800 MG DELAYED RELEASE TAB PO SCH ×3 (05:00→21:57)
[2017-06-28] MEDS ORDERED: ROCURONIUM INJ 50 MG/5 ML VIAL ONE (05:25)
[2017-06-28] MEDS ORDERED: MIDAZOLAM HCL 5 MG/ML VIAL (1 ML) ONE (05:25)
[2017-06-28] MEDS ORDERED: ROCURONIUM INJ 100 MG/10 ML VIAL IV PUSH ONE (05:30)
[2017-06-28] MEDS ORDERED: MIDAZOLAM HCL 5 MG/5 ML VIAL IV PUSH ONE ×2 (05:30)
[2017-06-28] MEDS ORDERED: ROCURONIUM INJ 100 MG/10 ML VIAL IV ONE (05:30)
[2017-06-28] MEDS ORDERED: PROPOFOL 500 MG/50 ML INJ 50 ML ONE (05:40)
--- NOTE | 2017-06-28 05:55 | HHI.CCPN ---
Subjective Remarks/Hospital Course 66-year-old male currently residing at the rehabilitation facility comes in due to fever with low blood pressure, abdominal pain and vomiting. He has history of bowel obstruction in the past. He also was diagnosed with C. difficile. Per patient his abdominal pain never got any better since being in the hospital about a month ago. However, he does say that it has gotten worse recently. He vomited today. He says he continues to have diarrhea. He was found to be febrile. He denies chest pain or shortness of breath. He was admitted in the end of April for bowel obstruction and presented in similar fashion at that time. 06/22: Seen and examined. Currently not on vasopressors. Patient had a large emesis and "feels better" now. Abdomen distended. 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 Pacemaker was "checked" prior to arriving here from [place] within the past several months. 06/23: Afebrile. Chief complaint of abdominal pain bilateral lower quadrants infraumbilical. One bowel movement documented however patient denies.. Very rare flatus. Plan for CT angiogram of the abdomen today 06/24: History status post exploratory lap, partial colectomy with takedown from the splenic flexure creation of colostomy secondary to perforated viscus, perforation at site of splenic flexure with lysis of adhesions from stomach, small bowel and splenic flexure adhered to colon.. Patient received 4500 cc crystalloid. EBL 150. 500 cc urine output. 100 cc NG tube. Patient was extubated overnight with central line placed. Currently on noninvasive ventilation remains acidotic. Will check chest x-ray this AM monitor volume status along with CVP. Pain appears controlled. 06/25: Resting comfortably in bed. Complaining of "tremors". Afebrile. Positive stool from ostomy 1 residual bowel movement overnight. PECOS drain still not sealing. 06/26: less comfortable this morning on my evaluation. tachypneic and severely dyspneic. CXR with evidence of severe volume overload. 5L up from admission. patient endorses severe SOB and orthopnea. no chest pain. ROS otherwise negative. Subjective 06/27: new-onset afib RVR this AM, HR in 160s. recheck labs, low K, low Mg. still volume overloaded on clinical exam. +jvd. on HF NC still, 50% fio2. good diuresis yesterday. suspect new-onset afib RVR is combination of volume overload and electrolyte abn. patient still complains of dyspnea. no CP. no other changes. 06/28: Worsening respiratory distress, now with refractory hypoxemia despite NRBM. He is too exhausted to continue, perhaps exacerbated by new a-fib and increased lung venous congestion. Will require intubation and mechanical ventilation. Objective Vital Signs Date Time Temp Pulse Resp B/P (MAP) Pulse Ox O2 Delivery O2 Flow Rate FiO2 06/28/17 02:00 98 06/28/17 00:00 97.5 22 139/70 (93) 90 06/27/17 20:12 High Flow Nasal Cannula 30.00 70 Intake and Output 06/28/17 06/28/17 06/29/17 08:00 16:00 00:00 Intake Total 100 ml Balance 100 ml Result Diagram: 06/27/17 0830 06/27/17 1735 Imaging Last Impressions Chest X-Ray 06/25/17 0600 Signed Impressions: Service Date/Time: May 05:34 - CONCLUSION: Worsening consolidation likely related to worsening edema. Forrest Doshi MD Abdomen/Pelvis CT 06/23/17 0000 Signed Impressions: Service Date/Time: Friday, June 23, 2017 11:40 - CONCLUSION: Pneumoperitoneum worrisome for perforation of hollow viscus. No acute vascular findings. Forrest Green MD Abdomen X-Ray 06/23/17 0000 Signed Impressions: Service Date/Time: Friday, June 23, 2017 10:13 - CONCLUSION: 1. Findings consistent with improving partial small bowel obstruction. Maynor Shepard MD Objective Remarks GENERAL: 66-year-old male, sitting in bed on high flow NC, still in moderate distress. SKIN: Warm and dry. Well perfused HEAD: Atraumatic. Normocephalic. EYES: Pupils equal and round around 3 mm left, 2 mm right. No conjunctival icterus. No injection or drainage. ENT: No nasal bleeding or discharge. NECK: Trachea midline. Transmitted gurgling from airway. CARDIOVASCULAR: tachycardic rate to 140s, irregularly irregular rhythm. borderline hypotensive. afib by tele. RESPIRATORY: bibasilar rales persist. still tachypneic and labored. on high flow NC and NRBM.. GASTROINTESTINAL: Abdomen midline incision is clean dry and intact. Right lower quadrant ostomy is pink with some brown stool noted. MUSCULOSKELETAL: Extremities with 1+ lower extremity bilateral edema. No obvious deformities. NEUROLOGICAL: Awake and alert. RASS -1. No gross focal/sensory deficits. Exhausted, somnolent. Date of Insertion: Jun 23, 2017 Line: Central Venous Catheter Side: Right Location: Subclavian A/P Assessment and Plan Assessment: 66yM s/p colonic perforation and intra-abdominal contamination, persistent volume overload and pulmonary edema. new afib RVR with borderline hemodynamic instability. will continue forced diuresis, aggressive electrolyte replacement. still evidence of respiratory distress on exam and remains on high flow NC and at risk for intubation if we cannot change the course of his respiratory distress. off pathway. remains critically ill despite aggressive measures yesterday and today. Neuro/Psych: Acute toxic metabolic encephalopathy secondary to sepsis Dementia disorder NOS Depression NOS Peripheral neuropathy Currently holding donepezil 5 mg at night for dementia Acetaminophen (Ofirmev) IV 1 g every 8 hours when necessary for fever Morphine sulfate 2-4 mg every 2 hours as needed for pain management Continue Fluoxetine 40 mill grams daily Holding Gabapentin 100 mg 3 times a day per family request due to tremors CV: History of third-degree heart block - dual chambered pacemaker placed 04/11 new-onset afib RVR 06/27 History of Hypertension Lactic acidosis - resolved History of Atrial fibrillation Holding carvedilol 3.125 mg twice a day lisinopril 2.5 mg daily light of hypotension Cardiology - Dr. Dunham has seen Currently on TPN goal 70 cc now with lipids. aggressive K and Mg replacement with ongoing diuresis. may require vasopressors for hypotension. Resp: Postoperative respiratory failure - persistent. COPD Right upper lobe calcified granuloma Acute Pulmonary Edema - persistent. Incentive spirometry while awake Currently on albuterol/ipratropium aerosols every 4 hours with albuterol aerosols every 2 hours when necessary dyspnea 3% hypertonic saline aerosols every 4 hours 5 days for aerosolized mucolytic Intubated 06/28 GI: Postop day #5 Exploratory Laparotomy, partial colectomy with takedown splenic flexure and colostomy placement secondary to perforated viscus, perforation at site of splenic flexure with lysis of adhesions from stomach, small bowel and spleen Dr. Soares Admission diagnosis Large bowel obstruction History of internal/external hemorrhoids UC Sigmoid/descending colonic ulcers Liver cysts Hypoalbuminemia Abdominal ascites Hypokalemia Hypomagnesemia Hypernatremia CT abdomen/pelvis on admission revealed dilatation the small bowel. Ascending and transverse colon. Transition point the distal transverse colon. Collapsed descending colon. Cecum thickening. CT angiogram 06/23 revealed perforated viscus/pneumoperitoneum Last admission status post colonoscopy 2. Noted 05/27 unable to transverse sigmoid colon due to stricture. Unable to transverse transverse colon due to stricture 06/03. Sigmoid ulcers. C. difficile positive. Currently on mesalamine 800 mg 3 times a day prednisone 20 mg daily - currently on hydrocortisone 50 mg every 6 hours NG tube to LIWS. Minimal output overnight GI/general surgery consult. Dr. Soares Home medication famotidine 20 mg twice a day for GI prophylaxis. Currently IV 06/24 - TPN at 70 cc an hour with 20% lipids daily Have spoken with TPN pharmacist to adjust electrolytes in TPN kcl 60meq + 4gm mgso4. : Laguna catheter if indicated for accurate I's and O's in a critically ill patient Endo: IDDM Will continue sliding scale insulin Novulin R every 4 hours high with Accu- Cheks to maintain euglycemia Continue 30 units insulin to TPN and insulin detemir 25 units twice a day today 06/25. Renal: Chronic kidney disease stage II 1.1 left renal cyst/tiny right infrarenal cyst Acute kidney disease (on CKD 2) slowly improving. Monitor urine output Accurate I's and O's Heme: Normocytic anemia Thrombocytopenia Leukocytosis Monitor CBC daily. Follow trends Previous admission with thrombocytopenia likely secondary infection/DIC. Transfused 1 unit PRBCs 06/25 ID: History of C. difficile Funguria - asx He was originally on metronidazole 500 mg every 8 hours and vancomycin 125 mg by mouth every 6 hours Infectious disease following. Currently on piperacillin/tazobactam 4.5 g IV every 6 hours and 400 mg IV daily Appears to being treated with C. difficile. C. difficile negative this admission Blood cultures 2, no growth today. Culture 06/22 - C. albicans FEN: Hypokalemia Hypomagnesemia Hypocalcemia Replacing electrolytes as clinically indicated MSK: Osteoarthritis Holding calcium carbonate/cholecalciferol 500 mg last 400 units 1 tablet twice a day. Resume when clinically indicated PT evaluate and treat Access -Right subclavian CVL placed 06/23 day #5. keep today with new-onset afib RVR and high-dose electrolyte replacement. Prophylaxis - GI -famotidine - DVT - SCD/heparin subcutaneous held prior surgery Overall impression: Critically ill with continued deterioration in lung function , now requiring mechanical ventilation. Critical Care 39 mins aside from procedures Michael Cornelius MD Jun 28, 2017 05:55
--- NOTE | 2017-06-28 05:58 | PD.PROCEDR ---
Procedure Note Procedure DX: Hypoxemic Respiratory Failure (J96.01) OP: Orotracheal Intubation (83224) Procedure: Bag mask ventilation. Versed 5 mg and rocuronium 100 mg iv. Intubated orally with 8.0 tube. Position confirmed with CO2 detection, breath sounds, sats 100%. CXR ordered, will review. Michael Cornelius MD Jun 28, 2017 05:58
[2017-06-28] MEDS: PROPOFOL 1000 MG/100 ML INJ 100 ML IV PRN ×2 (06:00→23:01)
[2017-06-28 06:10] LABS: BICARBONATE 31.1 MEQ/L (21.0-32.0); POTASSIUM 3.7 MEQ/L (3.5-5.1)
[2017-06-28] MEDS: HYDROCORTISONE SOD SUCCINATE 100 MG VIAL IV PUSH SCH ×3 (06:24→22:00)
--- NOTE | 2017-06-28 06:26 | RADRPT ---
EXAM DATE/TIME: 06/28/2017 06:05 [facility] COMPARISON: CHEST SINGLE AP, June 24, 2017, 8:33. CHEST SINGLE AP, June 25, 2017, 5:34. CHEST SINGLE AP , June 26, 2017, 4:07. INDICATIONS : Evaluate ET tube and NG tube. MEDICAL HISTORY : Chronic obstructive pulmonary disease. Cardiovascular disease. Hypercholesterolemia. HTN, CAD, Di abetes SURGICAL HISTORY : Pacemaker. ENCOUNTER: Subsequent ACUITY: 1 week PAIN SCORE: Non-responsive. LOCATION: Bilateral chest FINDINGS: Portable AP view of the chest demonstrates a normal-sized cardiac silhouette. Endotracheal tube is pr esent with distal tip at the aortic knob level measuring 2.4 cm from the jose. Nasogastric tube cou rses beyond the GE junction. There is diffuse mild bilateral airspace consolidation. No pneumothorax is visualized. CONCLUSION: 1. Endotracheal tube and nasogastric tube in appropriate position. 2. Mild diffuse bilateral airspace consolidation, improved since the prior exam. Forrest Santos MD on June 28, 2017 at 6:23 Board Certified Radiologist. This report was verified electronically.
[2017-06-28] MEDS ORDERED: FUROSEMIDE 100 MG/10 ML VIAL IV PUSH ONE (06:45)
[2017-06-28 07:12] LABS: BLOOD GAS BASE EXCESS 3.3 mmol/L (-2-2); BLOOD GAS CARBOXYHEMOGLOBIN 1.1 % (0-4); BLOOD GAS HCO3 30 mmol/L (22-26); BLOOD GAS METHEMOGLOBIN 1.1 % (0-2); BLOOD GAS O2 HGB SATURATION 95 % (90-100); BLOOD GAS PCO2 72 mmHg (38-42); BLOOD GAS PO2 128 mmHg (61-120); BLOOD GAS TOTAL HGB 8.8 G/DL (12.0-16.0); CRITICAL VALUE YES; OXYGEN DEVICE VENTILATOR; TEMP CORR TO 98.6
[2017-06-28 07:13] LABS: DRAW SITE RT BRACHIAL; FIO2 50 %; NUMBER OF ARTERIAL PUNCTURES 1; STAT NO
[2017-06-28] MEDS: CHLORHEXIDINE 0.12% (ORAL KIT) 15 ML CUP MT SCH ×2 (08:00→20:23)
[2017-06-28 08:15] LABS: HEMATOCRIT 27.8 % (39.0-51.0); MEAN CORPUSCULAR HEMOGLOBIN 27.4 PG (27.0-34.0); MEAN CORPUSCULAR HGB CONC 31.9 % (32.0-36.0); PLATELET COUNT 60 TH/MM3 (150-450); RED BLOOD COUNT 3.23 MIL/MM3 (4.50-5.90); WHITE BLOOD COUNT 15.8 TH/MM3 (4.0-11.0)
[2017-06-28 08:18] LABS: REVIEW FLAG FINAL
[2017-06-28 08:50] LABS: BLOOD GAS BASE EXCESS 4.3 mmol/L (-2-2); BLOOD GAS CARBOXYHEMOGLOBIN 0.2 % (0-4); BLOOD GAS HCO3 30 mmol/L (22-26); BLOOD GAS METHEMOGLOBIN 0.6 % (0-2); BLOOD GAS O2 HGB SATURATION 95 % (90-100); BLOOD GAS OXYGEN CONTENT 12.7 Vol % (12.0-20.0); BLOOD GAS PCO2 66 mmHg (38-42); BLOOD GAS PO2 124 mmHg (61-120); BLOOD GAS TOTAL HGB 9.3 G/DL (12.0-16.0); CRITICAL VALUE YES; DRAW SITE LT RADIAL; FIO2 50 %; NUMBER OF ARTERIAL PUNCTURES 1; OXYGEN DEVICE VENTILATOR; STAT NO; TEMP CORR TO 98.6; ULNAR PULSE PRESENT; VENT SETTINGS PRVC/AC
[2017-06-28] MEDS: SODIUM CHLORIDE 0.9% FLUSH 10 ML FLUSH IV FLUSH SCH ×2 (08:55→20:23)
[2017-06-28] MEDS: FAMOTIDINE 20 MG/2 ML VIAL IV PUSH SCH ×2 (09:13→20:22)
[2017-06-28] MEDS: ASCORBIC ACID 500 MG TAB PO SCH ×2 (09:25→20:22)
[2017-06-28] MEDS: FLUoxetine HCL 20 MG CAP PO SCH (09:26)
--- NOTE | 2017-06-28 14:33 | HHI.IDPN ---
Subjective Subjective Remarks colon path showed ischemic colitis now intubated, on vent , appears tachypneic sputum sent no fever + stooling still on TPN Antibiotics zosyn fluconazole Allergies: Coded Allergies: No Known Allergies (Unverified Adverse Reaction, Unknown, 05/25/17) Objective . Vital Signs Date Time Temp Pulse Resp B/P (MAP) Pulse Ox O2 Delivery O2 Flow Rate FiO2 06/28/17 12:00 40 06/28/17 12:00 97.3 98 24 119/60 (79) 98 06/28/17 12:00 91 06/28/17 10:51 100 40 06/28/17 10:00 97 06/28/17 08:00 92 06/28/17 08:00 50 06/28/17 08:00 96.7 91 20 112/66 (81) 100 06/28/17 07:48 100 50 06/28/17 06:17 18 06/28/17 06:00 100 06/28/17 05:40 98 50 06/28/17 05:30 50 06/28/17 04:00 101 06/28/17 04:00 97.6 101 21 123/77 (92) 87 06/28/17 02:00 98 06/28/17 00:00 97.5 92 22 139/70 (93) 90 06/28/17 00:00 92 06/27/17 22:00 97 06/27/17 20:12 96 High Flow Nasal Cannula 30.00 70 06/27/17 20:00 97.6 86 20 132/91 (105) 99 06/27/17 20:00 86 06/27/17 19:00 Nasal Cannula 30.00 70 Humidified 06/27/17 18:00 88 06/27/17 16:00 97.7 87 20 127/72 (90) 97 06/27/17 16:00 87 . Laboratory Tests Test 06/27/17 08:30 06/28/17 08:05 White Blood Count 12.6 TH/MM3 15.8 TH/MM3 Red Blood Count 3.06 MIL/MM3 3.23 MIL/MM3 Hemoglobin 8.5 GM/DL 8.9 GM/DL Hematocrit 25.5 % 27.8 % Mean Corpuscular Volume 83.2 FL 86.0 FL Mean Corpuscular Hemoglobin 27.7 PG 27.4 PG Mean Corpuscular Hemoglobin Concent 33.2 % 31.9 % Red Cell Distribution Width 19.4 % 20.0 % Platelet Count 54 TH/MM3 60 TH/MM3 Mean Platelet Volume 10.5 FL 10.8 FL Laboratory Tests Test 06/26/17 16:05 06/27/17 02:45 06/27/17 08:30 06/27/17 16:30 Potassium Level 3.0 MEQ/L 2.8 MEQ/L 3.5 MEQ/L 2.6 MEQ/L Phosphorus Level 3.0 MG/DL Magnesium Level 1.6 MG/DL 1.8 MG/DL 2.3 MG/DL Blood Urea Nitrogen 28 MG/DL Creatinine 0.95 MG/DL Random Glucose 142 MG/DL Calcium Level 7.6 MG/DL Sodium Level 146 MEQ/L Chloride Level 110 MEQ/L Carbon Dioxide Level 27.8 MEQ/L Anion Gap 8 MEQ/L Estimat Glomerular Filtration Rate 79 ML/MIN Test 06/27/17 17:35 06/28/17 04:39 Random Glucose 146 MG/DL 142 MG/DL Blood Urea Nitrogen 29 MG/DL Creatinine 0.82 MG/DL Calcium Level 7.8 MG/DL Sodium Level 144 MEQ/L Potassium Level 3.7 MEQ/L Chloride Level 106 MEQ/L Carbon Dioxide Level 31.1 MEQ/L Anion Gap 7 MEQ/L Estimat Glomerular Filtration Rate 94 ML/MIN Microbiology Date/Time Source Procedure Growth Status 06/28/17 06:04 Sputum Endotracheal Gram Stain Pending Received 06/28/17 06:04 Sputum Endotracheal Sputum Culture Pending Received Imaging Last Impressions Chest X-Ray 06/28/17 0000 Signed Impressions: Service Date/Time: Wednesday, June 28, 2017 06:05 - CONCLUSION: 1. Endotracheal tube and nasogastric tube in appropriate position. 2. Mild diffuse bilateral airspace consolidation, improved since the prior exam. Forrest Santos MD Upper Extremity Ultrasound 06/25/17 0000 Signed Impressions: Service Date/Time: May 10:22 - CONCLUSION: Normal examination. Forrest Green MD Abdomen/Pelvis CT 06/23/17 0000 Signed Impressions: Service Date/Time: Friday, June 23, 2017 11:40 - CONCLUSION: Pneumoperitoneum worrisome for perforation of hollow viscus. No acute vascular findings. Forrest Green MD Abdomen X-Ray 06/23/17 0000 Signed Impressions: Service Date/Time: Friday, June 23, 2017 10:13 - CONCLUSION: 1. Findings consistent with improving partial small bowel obstruction. Maynor Shepard MD Physical Exam CONSTITUTIONAL/GENERAL: This is an adequately nourished patient, in no apparent distress. TUBES/LINES/DRAINS: SKIN: No jaundice, rashes, or lesions. Skin temperature appropriate. Not diaphoretic. EYES: Pupils equal and round and reactive. Extraocular motions intact. No scleral icterus. No injection or drainage. Fundi not examined. Orally intubated CARDIOVASCULAR: Regular rate and rhythm without murmurs, gallops, or rubs. No JVD. Peripheral pulses symmetric. Pacer in place L chest RESPIRATORY/CHEST: Symmetric, increased respirations. B/L rhonchi to auscultation. Breath sounds equal bilaterally. GASTROINTESTINAL: Abdomen soft, not tender not distended. Stoma in place pink , witjh mild serosang d/c GENITOURINARY: Without palpable bladder distension. Laguna catheter in place with clear yellow urine MUSCULOSKELETAL: Extremities with prominent clubbing, + LE edema. No joint tenderness or effusion noted. No calf tenderness. No mottling or clubbing. NEUROLOGICAL: awake, alert PSYCHIATRIC: calm and cooperative Assessment & Plan Remarks Bowel obstruction, recurrent with acute perforation and fecal peritonitis - sp emergent surgery: resection plus colostomy - path w ischemia - stricture was discovered in op Recent C.diff, C.diff PCR negative Hypoxia, effusions ? ARDS High risk for surgery per cardiac eval'n Fuguria, C/ albicans Persisten leukocytosis - going down Thjrobocytopenia - new ? abx side effectsd New issue: likely PNA vs TRALI cont zosyn cont fluconazole muro WBC, plts fu sputum clx chk fibrinogen, PT/PTT Discussed Condition With Zulema Mcknight RN, MD Jun 28, 2017 14:33
[2017-06-28] MEDS: FLUCONAZOLE 400 MG PREMIX BAG 200 ML IV SCH (15:18)
[2017-06-28] MEDS: ENOXAPARIN SODIUM 40 MG/0.4 ML SYRINGE SQ SCH (17:00)
[2017-06-28] MEDS ORDERED: DEXTROSE 50% IN WATER 50 ML VIAL(D50) IV PUSH PRN ×2 (18:15→20:15)
[2017-06-28] MEDS ORDERED: INSULIN NovoLIN REGULAR SUPPLEMENTAL SCALE SQ SCH (18:15)
[2017-06-28] MEDS ORDERED: GLUCAGON 1 MG/ML VIAL OTHER PRN (20:15)
[2017-06-28] MEDS: DONEPEZIL HCL 5 MG TAB PO SCH (20:22)
[2017-06-28] MEDS: FAT EMULSION 20% INJ 250 ML (Daily over 8 hours) IV-CENTRAL SCH (20:23)
[2017-06-28] MEDS: POTASSIUM PHOSPHATE IV-CENTRAL SCH ×9 (20:24)
[2017-06-28] MEDS: POTASSIUM CHLORIDE IV-CENTRAL SCH ×9 (20:24)
[2017-06-28] MEDS: [UNRECOGNIZED DRUG - OTHER] IV-CENTRAL SCH ×9 (20:24)
[2017-06-28] MEDS: INSULIN DETEMIR 100 UNITS/ML VIAL SQ SCH (20:27)
[2017-06-28] MEDS: INSULIN ASPART SUPPLEMENTAL SCALE SQ SCH (20:28)
[2017-06-28 20:43] LABS: APTT (PATIENT) 34.1 SEC (24.3-30.1); INTERNATIONAL NORMALIZED RATIO 1.1 RATIO; PROTHROMBIN TIME - PATIENT 11.4 SEC (9.8-11.6)
--- NOTE | 2017-06-28 20:46 | HHI.PR ---
Subjective Subjective Notes acute resp failure intubated, still with ostomy output, +bm yesterday Objective Vitals/I&O Vital Signs Date Time Temp Pulse Resp B/P (MAP) Pulse Ox O2 Delivery O2 Flow Rate FiO2 06/28/17 18:00 91 06/28/17 16:00 97.6 24 102/60 (74) 100 06/28/17 16:00 40 06/27/17 20:12 High Flow Nasal Cannula 30.00 Labs Laboratory Tests Test 06/28/17 04:39 06/28/17 06:49 06/28/17 08:05 06/28/17 08:40 Blood Urea Nitrogen 29 Creatinine 0.82 Random Glucose 142 Calcium Level 7.8 Sodium Level 144 Potassium Level 3.7 Chloride Level 106 Carbon Dioxide Level 31.1 Anion Gap 7 Estimat Glomerular Filtration Rate 94 Blood Gas Puncture Site RT BRACHIAL LT RADIAL Blood Gas Patient Temperature 98.6 98.6 Blood Gas HCO3 30 30 Blood Gas Base Excess 3.3 4.3 Blood Gas Oxygen Saturation 95 95 Arterial Blood pH 7.24 7.29 Arterial Blood Partial Pressure CO2 72 66 Arterial Blood Partial Pressure O2 128 124 Arterial Blood Oxygen Content 12.0 12.7 Arterial Blood Carboxyhemoglobin 1.1 0.2 Arterial Blood Methemoglobin 1.1 0.6 Blood Gas Hemoglobin 8.8 9.3 Oxygen Delivery Device VENTILATOR VENTILATOR Blood Gas Ventilator Setting SEE COMMENT PRVC/AC Blood Gas Inspired Oxygen 50 50 White Blood Count 15.8 Red Blood Count 3.23 Hemoglobin 8.9 Hematocrit 27.8 Mean Corpuscular Volume 86.0 Mean Corpuscular Hemoglobin 27.4 Mean Corpuscular Hemoglobin Concent 31.9 Red Cell Distribution Width 20.0 Platelet Count 60 Mean Platelet Volume 10.8 Test 06/28/17 19:42 Date/Time Source Procedure Growth Status 06/22/17 12:23 Blood Peripheral Aerobic Blood Culture - Final NO GROWTH IN 5 DAYS Complete 06/22/17 12:23 Blood Peripheral Anaerobic Blood Culture - Final NO GROWTH IN 5 DAYS Complete 06/28/17 06:04 Sputum Endotracheal Gram Stain - Final Resulted 06/28/17 06:04 Sputum Endotracheal Sputum Culture Pending Resulted 06/22/17 04:20 Urine Catheterized Urine Urine Culture - Final Oumou Albicans Complete Abdomen: Other (soft pink ostomy viable, incision well healing) A/P Assessment and Plan 66-year-old male who presents with colonic obstruction, s/p resection with ostomy PLAN isc for intubation continue ostomy care and wound care abx continue icu monitoring cxr in Michael Scruggs MD Jun 28, 2017 20:46
--- NOTE | 2017-06-28 23:00 | EKG ---
Date Performed: 06/27/2017 Time Performed: 08:52:22 PTAGE: 66 years EKG: Atrial fibrillation with uncontrolled ventricular response. Left axis deviation Inferior in farct - age undetermined LVH with secondary repolarization abnormality Ant/septal and lateral ST-T ch anges Abnormal ECG NO PREVIOUS TRACING DOCTOR: Gordon Carson Interpretating Date/Time 06/28/2017 22:58:15
[2017-06-29] VITALS (18 sets, daily range): BP systolic 103–129; BP diastolic 61–76; PULSE 72–96; RESP 24–27; TEMP 97.6–98.3; O2SAT 100
[2017-06-29] MEDS: INSULIN ASPART SUPPLEMENTAL SCALE SQ SCH ×6 (00:15→20:48)
[2017-06-29] MEDS: PIPERACIL-TAZO 4.5 GM PREMIX 100 ML IV SCH ×4 (00:15→20:54)
[2017-06-29] MEDS: RESP: SODIUM CHLORIDE 3% 4 ML NEB NEB SCH ×6 (04:09→20:26)
[2017-06-29] MEDS: PROPOFOL 1000 MG/100 ML INJ 100 ML IV PRN ×4 (04:37→23:30)
[2017-06-29] MEDS: HYDROCORTISONE SOD SUCCINATE 100 MG VIAL IV PUSH SCH ×2 (05:13→20:55)
[2017-06-29 05:28] LABS: BICARBONATE 30.1 MEQ/L (21.0-32.0)
[2017-06-29] MEDS: MESALAMINE HD 800 MG DELAYED RELEASE TAB PO SCH (05:53)
[2017-06-29] MEDS: MORPHINE SULFATE 2 MG/ML INJ IV PUSH PRN (05:53)
[2017-06-29] MEDS: POTASSIUM CHLOR 40 MEQ PREMIX 100 ML IV PRN ×2 (06:01→08:13)
[2017-06-29] MEDS: FAMOTIDINE 20 MG/2 ML VIAL IV PUSH SCH ×2 (08:16→20:55)
[2017-06-29] MEDS: ASCORBIC ACID 500 MG TAB PO SCH ×2 (08:17→20:55)
[2017-06-29] MEDS: CHLORHEXIDINE 0.12% (ORAL KIT) 15 ML CUP MT SCH ×2 (08:21→20:56)
[2017-06-29] MEDS: SODIUM CHLORIDE 0.9% FLUSH 10 ML FLUSH IV FLUSH SCH ×2 (08:22→20:56)
[2017-06-29] MEDS: FLUoxetine HCL 20 MG CAP PO SCH (08:38)
[2017-06-29] MEDS: INSULIN DETEMIR 100 UNITS/ML VIAL SQ SCH ×2 (09:00→20:55)
--- NOTE | 2017-06-29 09:32 | HHI.CCPN ---
Subjective Remarks/Hospital Course 66-year-old male currently residing at the rehabilitation facility comes in due to fever with low blood pressure, abdominal pain and vomiting. He has history of bowel obstruction in the past. He also was diagnosed with C. difficile. Per patient his abdominal pain never got any better since being in the hospital about a month ago. However, he does say that it has gotten worse recently. He vomited today. He says he continues to have diarrhea. He was found to be febrile. He denies chest pain or shortness of breath. He was admitted in the end of April for bowel obstruction and presented in similar fashion at that time. 06/22: Seen and examined. Currently not on vasopressors. Patient had a large emesis and "feels better" now. Abdomen distended. Patient states she doesn't have a local international first officer. Pacemaker was "checked" prior to arriving here from [place] within the past several months. 06/23: Afebrile. Chief complaint of abdominal pain bilateral lower quadrants infraumbilical. One bowel movement documented however patient denies.. Very rare flatus. Plan for CT angiogram of the abdomen today 06/24: History status post exploratory lap, partial colectomy with takedown from the splenic flexure creation of colostomy secondary to perforated viscus, perforation at site of splenic flexure with lysis of adhesions from stomach, small bowel and splenic flexure adhered to colon.. Patient received 4500 cc crystalloid. EBL 150. 500 cc urine output. 100 cc NG tube. Patient was extubated overnight with central line placed. Currently on noninvasive ventilation remains acidotic. Will check chest x-ray this AM monitor volume status along with CVP. Pain appears controlled. 06/25: Resting comfortably in bed. Complaining of "tremors". Afebrile. Positive stool from ostomy 1 residual bowel movement overnight. PECOS drain still not sealing. 06/26: less comfortable this morning on my evaluation. tachypneic and severely dyspneic. CXR with evidence of severe volume overload. 5L up from admission. patient endorses severe SOB and orthopnea. no chest pain. ROS otherwise negative. Subjective 06/27: new-onset afib RVR this AM, HR in 160s. recheck labs, low K, low Mg. still volume overloaded on clinical exam. +jvd. on HF NC still, 50% fio2. good diuresis yesterday. suspect new-onset afib RVR is combination of volume overload and electrolyte abn. patient still complains of dyspnea. no CP. no other changes. 06/28: Worsening respiratory distress, now with refractory hypoxemia despite NRBM. He is too exhausted to continue, perhaps exacerbated by new a-fib and increased lung venous congestion. Will require intubation and mechanical ventilation. 06/29: clinically improving. hypoxia improving. CXR with persistent patchy infiltrates concerning for ARDS or TRALI. afib RVR yesterday, controlled with electrolyte replacement and metoprolol. still high PEEP requirements. Objective Vital Signs Date Time Temp Pulse Resp B/P (MAP) Pulse Ox O2 Delivery O2 Flow Rate FiO2 06/29/17 08:33 100 40 06/29/17 08:33 Ventilator 06/29/17 06:05 27 06/29/17 06:00 96 06/29/17 04:00 97.6 117/70 (86) 06/27/17 20:12 30.00 Intake and Output 06/29/17 06/29/17 06/30/17 08:00 16:00 00:00 Intake Total 1223 ml Output Total 2070 ml Balance -847 ml Result Diagram: 06/28/17 0805 06/29/17 0438 Imaging Last Impressions Chest X-Ray 06/25/17 0600 Signed Impressions: Service Date/Time: May 05:34 - CONCLUSION: Worsening consolidation likely related to worsening edema. Forrest Doshi MD Abdomen/Pelvis CT 06/23/17 0000 Signed Impressions: Service Date/Time: Friday, June 23, 2017 11:40 - CONCLUSION: Pneumoperitoneum worrisome for perforation of hollow viscus. No acute vascular findings. Forrest Green MD Abdomen X-Ray 06/23/17 0000 Signed Impressions: Service Date/Time: Friday, June 23, 2017 10:13 - CONCLUSION: 1. Findings consistent with improving partial small bowel obstruction. Maynor Shepard MD Objective Remarks GENERAL: 66-year-old male, lying in bed, intubated, sedated SKIN: Warm and dry. Well perfused HEAD: Atraumatic. Normocephalic. EYES: Pupils equal, round, reactive. NECK: Trachea midline. no jvd. CARDIOVASCULAR: normal rate, regular rhythm. sinus this AM. RESPIRATORY: intubated, PRVC, fio2 45%, peep 10. spo2 96% GASTROINTESTINAL: Abdomen midline incision is clean dry and intact. Right lower quadrant ostomy is pink with some brown stool noted. MUSCULOSKELETAL: Extremities with 1+ lower extremity bilateral edema. No obvious deformities. NEUROLOGICAL: RASS -3. withdraws to pain. intermittently follows commands. Date of Insertion: Jun 23, 2017 Line: Central Venous Catheter Side: Right Location: Subclavian A/P Assessment and Plan Assessment: 66yM s/p colonic perforation and intra-abdominal contamination, complicated by hypoxic respiratory failure requiring intubation. Clinically appears to be lung injury, ARDS vs. TRALI. continue negative fluid balance and supportive care. may not be ready for SBT today given high peep requirements. off pathway. remains critically ill with new respiratory failure. Neuro/Psych: Acute toxic metabolic encephalopathy secondary to sepsis Dementia disorder NOS Depression NOS Peripheral neuropathy Currently holding donepezil 5 mg at night for dementia Acetaminophen (Ofirmev) IV 1 g every 8 hours when necessary for fever Morphine sulfate 2-4 mg every 2 hours as needed for pain management Continue Fluoxetine 40 mill grams daily Holding Gabapentin 100 mg 3 times a day per family request due to tremors propofol and fentanyl for goal RASS -2. CV: History of third-degree heart block - dual chambered pacemaker placed 04/11 new-onset afib RVR 06/27 History of Hypertension Lactic acidosis - resolved History of Atrial fibrillation Holding carvedilol 3.125 mg twice a day lisinopril 2.5 mg daily light of hypotension Cardiology - Dr. Dunham has seen Currently on TPN goal 70 cc now with lipids. aggressive K and Mg replacement with ongoing diuresis. may require vasopressors for hypotension. Resp: Acute hypoxic and hypercarbic respiratory failure COPD Right upper lobe calcified granuloma Acute Pulmonary Edema - improving. ARDS vs. TRALI Incentive spirometry while awake Currently on albuterol/ipratropium aerosols every 4 hours with albuterol aerosols every 2 hours when necessary dyspnea 3% hypertonic saline aerosols every 4 hours 5 days for aerosolized mucolytic Intubated 06/28 nebs, vent bundle, hob at 30 degrees wean PEEP to 8 today. may not be ready for SBT. GI: Postop day #6 Exploratory Laparotomy, partial colectomy with takedown splenic flexure and colostomy placement secondary to perforated viscus, perforation at site of splenic flexure with lysis of adhesions from stomach, small bowel and spleen Dr. Soares Admission diagnosis Large bowel obstruction History of internal/external hemorrhoids UC Sigmoid/descending colonic ulcers Liver cysts Hypoalbuminemia Abdominal ascites Hypokalemia Hypomagnesemia Hypernatremia CT abdomen/pelvis on admission revealed dilatation the small bowel. Ascending and transverse colon. Transition point the distal transverse colon. Collapsed descending colon. Cecum thickening. CT angiogram 06/23 revealed perforated viscus/pneumoperitoneum Last admission status post colonoscopy 2. Noted 05/27 unable to transverse sigmoid colon due to stricture. Unable to transverse transverse colon due to stricture 06/03. Sigmoid ulcers. C. difficile positive. home regimen: mesalamine 800 mg 3 times a day prednisone 20 mg daily GI/general surgery consult. Dr. Soares Home medication famotidine 20 mg twice a day for GI prophylaxis. Currently IV 06/24 - TPN at 70 cc an hour with 20% lipids daily wean steroids to hydrocortisone 50mg q12h. home dose is prednisone 20mg daily. : Laguna catheter if indicated for accurate I's and O's in a critically ill patient Endo: IDDM Will continue sliding scale insulin Novulin R every 4 hours high with Accu- Cheks to maintain euglycemia Continue 30 units insulin to TPN and insulin detemir 25 units twice a day today 06/25. Renal: Chronic kidney disease stage II 1.1 left renal cyst/tiny right infrarenal cyst Acute kidney disease (on CKD 2) slowly improving. Monitor urine output Accurate I's and O's Heme: Normocytic anemia Thrombocytopenia Leukocytosis Monitor CBC daily. Follow trends Previous admission with thrombocytopenia likely secondary infection/DIC. Transfused 1 unit PRBCs 06/25 ID: History of C. difficile Funguria - asx He was originally on metronidazole 500 mg every 8 hours and vancomycin 125 mg by mouth every 6 hours Infectious disease following. Currently on piperacillin/tazobactam 4.5 g IV every 6 hours and 400 mg IV daily Appears to being treated with C. difficile. C. difficile negative this admission Blood cultures 2, no growth today. Culture 06/22 - C. albicans FEN: Hypokalemia Hypomagnesemia Hypocalcemia Replacing electrolytes as clinically indicated MSK: Osteoarthritis Holding calcium carbonate/cholecalciferol 500 mg last 400 units 1 tablet twice a day. Resume when clinically indicated PT evaluate and treat Access -Right subclavian CVL placed 06/23 day #6. keep today for TPN and given recent intubation/hypoxic resp failure. Prophylaxis - GI -famotidine - DVT - SCD/lovenox Overall impression: Critically ill with continued lung injury, mechanical ventilation. full support. remains hypoxic on elevated PEEP. Critical Care 32 mins aside from procedures Sedrick Robbins MD Jun 29, 2017 09:32
--- NOTE | 2017-06-29 10:37 | HHI.IDPN ---
Subjective Subjective Remarks colon path showed ischemic colitis now intubated, on vent , FiO2 40% sputum with lack of purulence no fever + stooling remains on TPN Antibiotics zosyn fluconazole Allergies: Coded Allergies: No Known Allergies (Unverified Adverse Reaction, Unknown, 05/25/17) Objective . Vital Signs Date Time Temp Pulse Resp B/P (MAP) Pulse Ox O2 Delivery O2 Flow Rate FiO2 06/29/17 08:33 100 40 06/29/17 08:33 100 Ventilator 40 06/29/17 06:05 27 06/29/17 06:00 96 06/29/17 04:09 100 40 06/29/17 04:00 40 06/29/17 04:00 92 06/29/17 04:00 97.6 92 26 117/70 (86) 100 06/29/17 02:00 94 06/29/17 00:40 100 40 06/29/17 00:00 94 06/29/17 00:00 97.6 93 27 103/65 (78) 100 06/29/17 00:00 40 06/28/17 22:00 94 06/28/17 20:57 100 40 06/28/17 20:00 40 06/28/17 20:00 98.8 93 27 114/66 (82) 100 06/28/17 20:00 93 06/28/17 18:00 91 06/28/17 16:00 100 06/28/17 16:00 97.6 94 24 102/60 (74) 100 06/28/17 16:00 40 06/28/17 15:41 100 40 06/28/17 14:00 90 06/28/17 12:00 40 06/28/17 12:00 97.3 98 24 119/60 (79) 98 06/28/17 12:00 91 06/28/17 10:51 100 40 . Laboratory Tests Test 06/28/17 08:05 White Blood Count 15.8 TH/MM3 Red Blood Count 3.23 MIL/MM3 Hemoglobin 8.9 GM/DL Hematocrit 27.8 % Mean Corpuscular Volume 86.0 FL Mean Corpuscular Hemoglobin 27.4 PG Mean Corpuscular Hemoglobin Concent 31.9 % Red Cell Distribution Width 20.0 % Platelet Count 60 TH/MM3 Mean Platelet Volume 10.8 FL Laboratory Tests Test 06/27/17 16:30 06/27/17 17:35 06/28/17 04:39 06/29/17 04:38 Potassium Level 2.6 MEQ/L 3.7 MEQ/L 3.0 MEQ/L Magnesium Level 2.3 MG/DL Random Glucose 146 MG/DL 142 MG/DL 225 MG/DL Blood Urea Nitrogen 29 MG/DL 31 MG/DL Creatinine 0.82 MG/DL 0.92 MG/DL Calcium Level 7.8 MG/DL 7.8 MG/DL Sodium Level 144 MEQ/L 143 MEQ/L Chloride Level 106 MEQ/L 103 MEQ/L Carbon Dioxide Level 31.1 MEQ/L 30.1 MEQ/L Anion Gap 7 MEQ/L 10 MEQ/L Estimat Glomerular Filtration Rate 94 ML/MIN 82 ML/MIN Microbiology Date/Time Source Procedure Growth Status 06/28/17 06:04 Sputum Endotracheal Gram Stain - Final Resulted 06/28/17 06:04 Sputum Endotracheal Sputum Culture Pending Resulted Imaging Last Impressions Chest X-Ray 06/28/17 0000 Signed Impressions: Service Date/Time: Wednesday, June 28, 2017 06:05 - CONCLUSION: 1. Endotracheal tube and nasogastric tube in appropriate position. 2. Mild diffuse bilateral airspace consolidation, improved since the prior exam. Forrest Santos MD Upper Extremity Ultrasound 06/25/17 0000 Signed Impressions: Service Date/Time: May 10:22 - CONCLUSION: Normal examination. Forrest Green MD Abdomen/Pelvis CT 06/23/17 0000 Signed Impressions: Service Date/Time: Friday, June 23, 2017 11:40 - CONCLUSION: Pneumoperitoneum worrisome for perforation of hollow viscus. No acute vascular findings. Forrest Green MD Abdomen X-Ray 06/23/17 0000 Signed Impressions: Service Date/Time: Friday, June 23, 2017 10:13 - CONCLUSION: 1. Findings consistent with improving partial small bowel obstruction. Maynor Shepard MD Physical Exam CONSTITUTIONAL/GENERAL: This is an adequately nourished patient, in no apparent distress. TUBES/LINES/DRAINS: SKIN: No jaundice, rashes, or lesions. Skin temperature appropriate. Not diaphoretic. EYES: Pupils equal and round and reactive. Extraocular motions intact. No scleral icterus. No injection or drainage. Fundi not examined. Orally intubated CARDIOVASCULAR: Regular rate and rhythm without murmurs, gallops, or rubs. No JVD. Peripheral pulses symmetric. Pacer in place L chest RESPIRATORY/CHEST: Symmetric, increased respirations. B/L rhonchi to auscultation. Breath sounds equal bilaterally. GASTROINTESTINAL: Abdomen soft, not tender not distended. Stoma in place pink , with mild serosang d/c GENITOURINARY: Without palpable bladder distension. Laguna catheter in place with clear yellow urine MUSCULOSKELETAL: Extremities with prominent clubbing, + LE edema. No joint tenderness or effusion noted. No calf tenderness. No mottling or clubbing. NEUROLOGICAL: sedated PSYCHIATRIC: unable to assess Assessment & Plan Remarks Bowel obstruction, recurrent with acute perforation and fecal peritonitis - sp emergent surgery: resection plus colostomy - path w ischemia - stricture was discovered in op Recent C.diff, C.diff PCR negative Hypoxia, effusions ? ARDS High risk for surgery per cardiac eval'n Fuguria, C/ albicans Persisten leukocytosis - going down Thjrobocytopenia - new ? abx side effectsd - fibrinogen is high, coags wnl , not cw sepsis New issue: likely PNA vs TRALI cont zosyn dc fluconazole fu WBC, plts fu sputum clx Zulema Mason MD Jun 29, 2017 10:37
--- NOTE | 2017-06-29 10:49 | HHI.GIFU ---
Subjective Remarks Intubated on vent after worsening respiratory distress. Getting TPn. liquid dark brown stool ostomy. (Meka Vail) Objective Vitals I&O Vital Signs Date Time Temp Pulse Resp B/P (MAP) Pulse Ox O2 Delivery O2 Flow Rate FiO2 06/29/17 08:33 100 40 06/29/17 08:33 100 Ventilator 40 06/29/17 06:05 27 06/29/17 06:00 96 06/29/17 04:09 100 40 06/29/17 04:00 40 06/29/17 04:00 92 06/29/17 04:00 97.6 92 26 117/70 (86) 100 06/29/17 02:00 94 06/29/17 00:40 100 40 06/29/17 00:00 94 06/29/17 00:00 97.6 93 27 103/65 (78) 100 06/29/17 00:00 40 06/28/17 22:00 94 06/28/17 20:57 100 40 06/28/17 20:00 40 06/28/17 20:00 98.8 93 27 114/66 (82) 100 06/28/17 20:00 93 06/28/17 18:00 91 06/28/17 16:00 100 06/28/17 16:00 97.6 94 24 102/60 (74) 100 06/28/17 16:00 40 06/28/17 15:41 100 40 06/28/17 14:00 90 06/28/17 12:00 40 06/28/17 12:00 97.3 98 24 119/60 (79) 98 06/28/17 12:00 91 06/28/17 10:51 100 40 I/O 06/28/17 06/28/17 06/28/17 06/29/17 06/29/17 06/29/17 07:00 15:00 23:00 07:00 15:00 23:00 Intake Total 100 ml 2013 ml 1223 ml Output Total 1240 ml 1500 ml 2070 ml Balance -1140 ml 513 ml -847 ml IV Total 100 ml 1119 ml 1223 ml TPN/PPN 844 ml Other 50 ml Output Urine Total 750 ml 1350 ml 1250 ml Stool Total 200 ml 50 ml 50 ml Gastric Drainage Total 600 ml Drainage Total 290 ml 100 ml 170 ml Laboratory Laboratory Tests Test 06/28/17 19:42 06/29/17 04:38 Prothrombin Time 11.4 Prothromb Time International Ratio 1.1 Activated Partial Thromboplast Time 34.1 Fibrinogen 557 Blood Urea Nitrogen 31 Creatinine 0.92 Random Glucose 225 Calcium Level 7.8 Sodium Level 143 Potassium Level 3.0 Chloride Level 103 Carbon Dioxide Level 30.1 Anion Gap 10 Estimat Glomerular Filtration Rate 82 Date/Time Source Procedure Growth Status 06/22/17 12:23 Blood Peripheral Aerobic Blood Culture - Final NO GROWTH IN 5 DAYS Complete 06/22/17 12:23 Blood Peripheral Anaerobic Blood Culture - Final NO GROWTH IN 5 DAYS Complete 06/28/17 06:04 Sputum Endotracheal Gram Stain - Final Resulted 06/28/17 06:04 Sputum Endotracheal Sputum Culture Pending Resulted 06/22/17 04:20 Urine Catheterized Urine Urine Culture - Final Oumou Albicans Complete Imaging Last Impressions Chest X-Ray 06/28/17 0000 Signed Impressions: Service Date/Time: Wednesday, June 28, 2017 06:05 - CONCLUSION: 1. Endotracheal tube and nasogastric tube in appropriate position. 2. Mild diffuse bilateral airspace consolidation, improved since the prior exam. Forrest Santos MD Upper Extremity Ultrasound 06/25/17 0000 Signed Impressions: Service Date/Time: May 10:22 - CONCLUSION: Normal examination. Forrest Green MD Abdomen/Pelvis CT 06/23/17 0000 Signed Impressions: Service Date/Time: Friday, June 23, 2017 11:40 - CONCLUSION: Pneumoperitoneum worrisome for perforation of hollow viscus. No acute vascular findings. Forrest Green MD Abdomen X-Ray 06/23/17 0000 Signed Impressions: Service Date/Time: Friday, June 23, 2017 10:13 - CONCLUSION: 1. Findings consistent with improving partial small bowel obstruction. Maynor Sheprad MD Physical Exam HEENT: Normocephalic; atraumatic; no jaundice. intubated CHEST: CTA CARDIAC: RRR ABDOMEN: Nondistended, midline incision line drsg d/i, galileo drain with serous fluid. colostomy with dark brown liquid stool EXTREMITIES: Ble edema. SKIN: Normal; no rash; no jaundice. HOME BUILDER: sedated on vent (Meka VailP) Assessment and Plan Plan ASSESSMENT: - Bowel obstruction. CT Scan abdomen and pelvis (06/22/17)---> Bowel obstruction with an area of transition and narrowing in the distal transverse colon in splenic flexure region. Mild to moderate ascites. Small subcentimeter hypodensities in the liver, may represent cysts although they are nonspecific. Bilateral pleural effusions being worse on the left. There are accompanying areas of atelectasis or consolidation in the lung bases. Pt was recently hospitalized with Cdiff colitis and bowel obstruction secondary to splenic flexure from 05/25-06/02. Of note, US abdomen (05/27/17)---> discordant velocities in imaging findings, CTA may be of benefit. This was not done secondary to his renal impairment at the time. Colonoscopy (06/10/17)---> Changes most consistent with colitis probably of the ulcerative type involving left colon splenic flexure stricture benign appearing. Pathology noted transverse colon biopsy without significant histologic abnormality, splenic flexure biopsy acutely inflamed colonic mucosa and granulation tissues consistent with ulceration, descending colon polyp with colonic mucosa without significant histologic abnormality, sigmoid biopsy acute inflamed colonic mucosa and granulation tissue consistent with ulceration, rectum biopsy with acutely inflamed colonic mucosa and granulation tissue consistent with ulceration. He was started on Asacol HD 800mg po TID and a prednisone taper with 40mg po daily x 9 days, 30mg x 10 days, 20mg x 10 days, 10mg x 10 days, then 5mg x 10 days and then d/c. Stricture secondary to ulcerative colitis vs. ischemic colitis. CTA ()----> Pneumoperitoneum worrisome for perforation of hollow viscus. No acute vascular findings. S/P Exp. Lap., TOR, partial colectomy, take down of splenic flexure, colostomy (06/23/17)----> Colon perforated near stricture, adhesions of stomach, small bowel and spleen to colon, sucus, free air. 06/29/17- Colon path ischemic colitis with assoc perf, luminal stenosis. GS following. intubated for worsening respiratory distress. liquid brown stoolin ostomy. on TPN. d/w GS - Pneumoperitoneum. S/P surgery as above. - Sepsis with bowel obstruction and recent hx of CDiff colitis. CDiff negative. ID following wbc up today - Anemia, normocytic. HH stable, improved - CMP, CHF, DM, Hyperlipidemia per attending. PLAN: - OK to d/c asacol - TPN - Cont. Steroids - abx per ID - monitor labs - supportive care This pt seen by myself and Dr Negro and this note is written on his behalf (Meka Vail) Physician Comments Seen and examined with CLOTHING AND TEXTILES TEACHER. S/p laparatomy with colostomy. Intubated and sedated. On TPN. Dc asacol, Gi will sign off, reconsult as needed. Discussed with nurse.Thankyou (Roseanna Negro MD) Meka Vail Jun 29, 2017 10:49 Roseanna Negro MD Jun 29, 2017 16:08
--- NOTE | 2017-06-29 11:36 | HHI.PR ---
Subjective Subjective Notes Intubated/Sedated Multiple family members at bedside including and son from [facility] Objective Vitals/I&O Vital Signs Date Time Temp Pulse Resp B/P (MAP) Pulse Ox O2 Delivery O2 Flow Rate FiO2 06/29/17 08:33 100 40 06/29/17 08:33 Ventilator 06/29/17 06:05 27 06/29/17 06:00 96 06/29/17 04:00 97.6 117/70 (86) 06/27/17 20:12 30.00 Labs Laboratory Tests Test 06/28/17 19:42 06/29/17 04:38 Prothrombin Time 11.4 Prothromb Time International Ratio 1.1 Activated Partial Thromboplast Time 34.1 Fibrinogen 557 Blood Urea Nitrogen 31 Creatinine 0.92 Random Glucose 225 Calcium Level 7.8 Sodium Level 143 Potassium Level 3.0 Chloride Level 103 Carbon Dioxide Level 30.1 Anion Gap 10 Estimat Glomerular Filtration Rate 82 Date/Time Source Procedure Growth Status 06/22/17 12:23 Blood Peripheral Aerobic Blood Culture - Final NO GROWTH IN 5 DAYS Complete 06/22/17 12:23 Blood Peripheral Anaerobic Blood Culture - Final NO GROWTH IN 5 DAYS Complete 06/28/17 06:04 Sputum Endotracheal Gram Stain - Final Resulted 06/28/17 06:04 Sputum Endotracheal Sputum Culture Pending Resulted 06/22/17 04:20 Urine Catheterized Urine Urine Culture - Final Oumou Albicans Complete Cardiovascular: Regular Lungs: Clear Abdomen: Other (midline incision with alma delia in place; AFIA with clear serous drainage; colostomy ----stoma is edematous--stool in appliace ) Extremities: Other (moderate generalized edema ) A/P Assessment and Plan 66 year old male POD6 exlap; TOR; partial colectomy, takedown of splenic flexure , colostomy -Now re-intubated due to declining respiratory status yesterday -NPO -Continue antibiotics---Zosyn/Flagyl/Diflucan -IVF -Continue TPN -Continue routine AFIA care -Turn Q2 -Colostomy RN has been consulted Attending Statement patient seen at bedside reintubated- [facility] for vent weaning ostomy care f/u wbc Attestation The exam, history, and the medical decision-making described in the above note were completed with the assistance of the mid-level provider. I reviewed and agree with the findings presented. I attest that I had a [id number] encounter with the patient on the same day, and personally performed and documented my assessment and findings in the medical record. Marianne Torres Jun 29, 2017 11:36 Michael Soares MD Jul 04, 2017 21:52
--- NOTE | 2017-06-29 13:00 | PD.WCN.NOT ---
Wound Consult Description: Consult placed for New Colostomy per MARCUS Torres Communicated with: DIPTI Le Recommendation: Empty pouch of effluent when 1/3-1/2 full Change appliance every 5-7 days and PRN before leaks Additional Information: Patient seen on [address] for ostomy assessment and appliance change. Ostomy Type: Colostomy Complete: Education materials (ConvaTec kit left in room), Other Additional information Patient seen on [address] for ostomy assessment and appliance change. Upon entering room, patient is noted to be intubated and on sedation. DIPTI Le was at bedside and stoma was visualized with appliance leaking with what appears to be an attempt of reinforcement with tape noted to the side it was leaking on. Adhesive removal wipes were obtained and used to remove the appliance. The wafer was noted to have the plastic covering the adhesive barrier on the wafer, which was the cause of leaking. Peristomal skin was thoroughly cleansed using warm water and washcloths. Stoma was measured @ 2cm, round, pink, moist, edematous, moderately protruding, lumen noted in center of stoma with dark green liquid noted in pouch that was removed and measured by RN. Mucocutaneous junction is noted with circumferential sutures, otherwise unremarkable. Peristomal skin was allowed to air dry and then prepped with Bard' s barrier film. Coloplast appliance available in room, and used, was a 2 piece cut to fit. Communicated to RN about the new wafer and pouch that is available temporarily. Marimar Palm [facility] Jun 29, 2017 12:59
[2017-06-29] MEDS: ENOXAPARIN SODIUM 40 MG/0.4 ML SYRINGE SQ SCH (16:16)
--- NOTE | 2017-06-29 17:48 | PD.WCN.NOT ---
Wound Consult Description: Received consult for pressure ulcer to coccyx from Doctor Adryan Communicated with: DIPTI Le [facility] Recommendation: 1.Please cleanse wound to sacrum with normal saline or wound cleaner industrial and pat dry. Apply Optifoam gentle border over wound. Change dressing every 3 days or PRN if saturated or dislodged.Please apply skin prep to periwound before applying dressing. 2.Reposition patient every 2 hours and PRN to offload pressure from padmini prominences. Additional Information: Patient seen on [address] [place] [address] for evaluation of coccyx pressure ulcer around 1700. Wound assessment completed with DIPTI Le [facility],Kisha RESENDEZ [facility] and keno writer / runner. Turned patient to L side to reveal sacral area covered with Calazime barrier cream.Gently cleansed to remove some barrier cream to reveal sacral stage 2 pressure injury. Wound presents with 100% pink tissue and partial thickness skin loss. Wound measures 4cm x 2 cm x ~<0.1cm. Cleansed wound with normal saline and pat dry. Skin prep was applied before cover wound with Optifoam gentle sacral dressing. Patient is laying on K4 bed from [facility]. Positioned patient off padmini prominence to offload pressure from sacral area. Chelsie Hsu [facility] Jun 29, 2017 17:48
[2017-06-29] MEDS: RESP: ALBUTEROL 2.5 MG/3 ML NEB (PRN) NEB (20:25)
[2017-06-29] MEDS: FAT EMULSION 20% INJ 250 ML (Daily over 8 hours) IV-CENTRAL SCH (20:54)
[2017-06-29] MEDS: DONEPEZIL HCL 5 MG TAB PO SCH (20:55)
[2017-06-29] MEDS: POTASSIUM CHLORIDE IV-CENTRAL SCH ×9 (20:57)
[2017-06-29] MEDS: [UNRECOGNIZED DRUG - OTHER] IV-CENTRAL SCH ×9 (20:57)
[2017-06-29] MEDS: POTASSIUM PHOSPHATE IV-CENTRAL SCH ×9 (20:57)
[2017-06-29] MEDS: POTASSIUM CHLOR 20 MEQ PREMIX 100 ML IV PRN (21:25)
[2017-06-30] VITALS (18 sets, daily range): BP systolic 97–137; BP diastolic 57–72; PULSE 76–96; RESP 12–24; TEMP 97.6–99.1; O2SAT 100
[2017-06-30] MEDS: RESP: SODIUM CHLORIDE 3% 4 ML NEB NEB SCH ×3 (00:30→08:45)
[2017-06-30] MEDS: RESP: ALBUTEROL 2.5 MG/3 ML NEB (PRN) NEB ×2 (00:30→03:27)
[2017-06-30] MEDS: POTASSIUM CHLOR 20 MEQ PREMIX 100 ML IV PRN (00:37)
[2017-06-30] MEDS: INSULIN ASPART SUPPLEMENTAL SCALE SQ SCH ×6 (01:48→21:00)
[2017-06-30] MEDS: PIPERACIL-TAZO 4.5 GM PREMIX 100 ML IV SCH ×4 (02:53→21:31)
[2017-06-30] MEDS: CHLORHEXIDINE GLUCONATE 2 % 1 PACK (2 CLOTHS) TOP SCH (03:08)
[2017-06-30] MEDS: PROPOFOL 1000 MG/100 ML INJ 100 ML IV PRN ×2 (04:46→10:25)
[2017-06-30 05:00] LABS: HEMATOCRIT 26.3 % (39.0-51.0); MEAN CELL VOLUME 83.4 FL (80.0-100.0); MEAN CORPUSCULAR HEMOGLOBIN 27.5 PG (27.0-34.0); PLATELET COUNT 112 TH/MM3 (150-450); RED BLOOD COUNT 3.16 MIL/MM3 (4.50-5.90); RED CELL DISTRIBUTION WIDTH 19.6 % (11.6-17.2); REVIEW FLAG FINAL; WHITE BLOOD COUNT 10.3 TH/MM3 (4.0-11.0)
[2017-06-30 05:25] LABS: POTASSIUM 3.5 MEQ/L (3.5-5.1)
[2017-06-30] MEDS: SODIUM CHLORIDE 0.9% FLUSH 10 ML FLUSH IV FLUSH SCH ×2 (09:00→21:00)
[2017-06-30] MEDS: INSULIN DETEMIR 100 UNITS/ML VIAL SQ SCH ×2 (09:00→21:00)
[2017-06-30] MEDS: CHLORHEXIDINE 0.12% (ORAL KIT) 15 ML CUP MT SCH ×2 (10:00→20:00)
[2017-06-30] MEDS: ASCORBIC ACID 500 MG TAB PO SCH ×2 (11:00→21:00)
[2017-06-30] MEDS: FLUoxetine HCL 20 MG CAP PO SCH (11:00)
[2017-06-30] MEDS: FAMOTIDINE 20 MG/2 ML VIAL IV PUSH SCH ×2 (11:00→21:31)
[2017-06-30] MEDS: HYDROCORTISONE SOD SUCCINATE 100 MG VIAL IV PUSH SCH (11:00)
--- NOTE | 2017-06-30 11:37 | HHI.PR ---
Subjective Subjective Notes Intubated/Sedated DIPTI Le at bedside Objective Vitals/I&O Vital Signs Date Time Temp Pulse Resp B/P (MAP) Pulse Ox O2 Delivery O2 Flow Rate FiO2 06/30/17 08:46 100 Ventilator 40 06/30/17 06:00 91 06/30/17 04:00 97.7 24 127/72 (90) 06/27/17 20:12 30.00 Labs Laboratory Tests Test 06/29/17 17:15 06/30/17 04:55 Potassium Level 3.4 3.5 White Blood Count 10.3 Red Blood Count 3.16 Hemoglobin 8.7 Hematocrit 26.3 Mean Corpuscular Volume 83.4 Mean Corpuscular Hemoglobin 27.5 Mean Corpuscular Hemoglobin Concent 33.0 Red Cell Distribution Width 19.6 Platelet Count 112 Mean Platelet Volume 11.0 Blood Urea Nitrogen 30 Creatinine 0.83 Random Glucose 217 Calcium Level 7.8 Sodium Level 143 Chloride Level 105 Carbon Dioxide Level 31.0 Anion Gap 7 Estimat Glomerular Filtration Rate 92 Date/Time Source Procedure Growth Status 06/22/17 12:23 Blood Peripheral Aerobic Blood Culture - Final NO GROWTH IN 5 DAYS Complete 06/22/17 12:23 Blood Peripheral Anaerobic Blood Culture - Final NO GROWTH IN 5 DAYS Complete 06/28/17 06:04 Sputum Endotracheal Gram Stain - Final Complete 06/28/17 06:04 Sputum Endotracheal Sputum Culture - Final RARE GROWTH NORMAL RESPIRATORY EUFEMIA Complete 06/22/17 04:20 Urine Catheterized Urine Urine Culture - Final Oumou Albicans Complete Cardiovascular: Regular Lungs: Clear Abdomen: Other (midline incision with alma delia; AFIA with serous fluid; colostomy- --stoma pink but edematous-- stool in colostomy ) A/P Assessment and Plan 66 year old male POD7 exlap; TOR; partial colectomy, takedown of splenic flexure , colostomy -Respiratory status improved; possible extubation today -If gets extubated---okay to start sips of clears; if remained intubated --- okay to start trickle feed -Continue antibiotics---Zosyn/Flagyl/Diflucan -IVF -Continue TPN -DC AFIA -Turn Q2 -Colostomy RN is following patient Attending Statement patient seen at bedside attempt to extubate per isc close monitoring ostomy with good output Attestation The exam, history, and the medical decision-making described in the above note were completed with the assistance of the mid-level provider. I reviewed and agree with the findings presented. I attest that I had a [id number] encounter with the patient on the same day, and personally performed and documented my assessment and findings in the medical record. Marianne Torres Jun 30, 2017 11:37 Michael Soares MD Jul 06, 2017 21:10
[2017-06-30] MEDS: MORPHINE SULFATE 4 MG/ML INJ IV PUSH PRN (13:53)
--- NOTE | 2017-06-30 15:31 | HHI.CCPN ---
Subjective Remarks/Hospital Course 66-year-old male currently residing at the rehabilitation facility comes in due to fever with low blood pressure, abdominal pain and vomiting. He has history of bowel obstruction in the past. He also was diagnosed with C. difficile. Per patient his abdominal pain never got any better since being in the hospital about a month ago. However, he does say that it has gotten worse recently. He vomited today. He says he continues to have diarrhea. He was found to be febrile. He denies chest pain or shortness of breath. He was admitted in the end of April for bowel obstruction and presented in similar fashion at that time. 06/22: Seen and examined. Currently not on vasopressors. Patient had a large emesis and "feels better" now. Abdomen distended. 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 Pacemaker was "checked" prior to arriving here from [place] within the past several months. 06/23: Afebrile. Chief complaint of abdominal pain bilateral lower quadrants infraumbilical. One bowel movement documented however patient denies.. Very rare flatus. Plan for CT angiogram of the abdomen today 06/24: History status post exploratory lap, partial colectomy with takedown from the splenic flexure creation of colostomy secondary to perforated viscus, perforation at site of splenic flexure with lysis of adhesions from stomach, small bowel and splenic flexure adhered to colon.. Patient received 4500 cc crystalloid. EBL 150. 500 cc urine output. 100 cc NG tube. Patient was extubated overnight with central line placed. Currently on noninvasive ventilation remains acidotic. Will check chest x-ray this AM monitor volume status along with CVP. Pain appears controlled. 06/25: Resting comfortably in bed. Complaining of "tremors". Afebrile. Positive stool from ostomy 1 residual bowel movement overnight. PECOS drain still not sealing. 06/26: less comfortable this morning on my evaluation. tachypneic and severely dyspneic. CXR with evidence of severe volume overload. 5L up from admission. patient endorses severe SOB and orthopnea. no chest pain. ROS otherwise negative. 06/27: new-onset afib RVR this AM, HR in 160s. recheck labs, low K, low Mg. still volume overloaded on clinical exam. +jvd. on HF NC still, 50% fio2. good diuresis yesterday. suspect new-onset afib RVR is combination of volume overload and electrolyte abn. patient still complains of dyspnea. no CP. no other changes. 06/28: Worsening respiratory distress, now with refractory hypoxemia despite NRBM. He is too exhausted to continue, perhaps exacerbated by new a-fib and increased lung venous congestion. Will require intubation and mechanical ventilation. 06/29: clinically improving. hypoxia improving. CXR with persistent patchy infiltrates concerning for ARDS or TRALI. afib RVR yesterday, controlled with electrolyte replacement and metoprolol. still high PEEP requirements. Subjective 06/30: clinically continues to improve. tolerating CPAP. if passes, will pursue extubation. ostomy now with improving output, ROBF. Objective Vital Signs Date Time Temp Pulse Resp B/P (MAP) Pulse Ox O2 Delivery O2 Flow Rate FiO2 06/30/17 14:00 81 06/30/17 13:00 40 06/30/17 12:00 97.7 24 97/57 (70) 100 06/30/17 08:46 Ventilator 06/27/17 20:12 30.00 Intake and Output 06/30/17 06/30/17 07/01/17 08:00 16:00 00:00 Intake Total 1461 ml Output Total 800 ml Balance 661 ml Result Diagram: 06/30/17 0455 06/30/17 0455 Other Results Microbiology Date/Time Source Procedure Growth Status 06/28/17 06:04 Sputum Endotracheal Gram Stain - Final Complete 06/28/17 06:04 Sputum Endotracheal Sputum Culture - Final RARE GROWTH NORMAL RESPIRATORY EUFEMIA Complete Imaging Last Impressions Chest X-Ray 06/25/17 0600 Signed Impressions: Service Date/Time: May 05:34 - CONCLUSION: Worsening consolidation likely related to worsening edema. Forrest Doshi MD Abdomen/Pelvis CT 06/23/17 0000 Signed Impressions: Service Date/Time: Friday, June 23, 2017 11:40 - CONCLUSION: Pneumoperitoneum worrisome for perforation of hollow viscus. No acute vascular findings. Forrest Green MD Abdomen X-Ray 06/23/17 0000 Signed Impressions: Service Date/Time: Friday, June 23, 2017 10:13 - CONCLUSION: 1. Findings consistent with improving partial small bowel obstruction. Maynor Shepard MD Objective Remarks GENERAL: 66-year-old male, lying in bed, intubated, sedated SKIN: Warm and dry. Well perfused HEAD: Atraumatic. Normocephalic. EYES: Pupils equal, round, reactive. NECK: Trachea midline. no jvd. CARDIOVASCULAR: normal rate, regular rhythm. sinus this AM. RESPIRATORY: intubated, PRVC, fio2 40%, peep 8. spo2 99%--> transitioned to PSV 5/8/40%. GASTROINTESTINAL: Abdomen midline incision is clean dry and intact. Right lower quadrant ostomy is pink with some brown stool noted. MUSCULOSKELETAL: Extremities with 1+ lower extremity bilateral edema. No obvious deformities. NEUROLOGICAL: RASS -1. follows commands. Date of Insertion: Jun 23, 2017 Line: Central Venous Catheter Side: Right Location: Subclavian A/P Assessment and Plan Assessment: 66yM s/p colonic perforation and intra-abdominal contamination, complicated by hypoxic respiratory failure requiring intubation. Clinically appears to be lung injury, ARDS vs. TRALI. continue negative fluid balance and supportive care. start SBTs and may be able to extubate today or tomorrow. Neuro/Psych: Acute toxic metabolic encephalopathy secondary to sepsis Dementia disorder NOS Depression NOS Peripheral neuropathy Currently holding donepezil 5 mg at night for dementia Acetaminophen (Ofirmev) IV 1 g every 8 hours when necessary for fever Morphine sulfate 2-4 mg every 2 hours as needed for pain management Continue Fluoxetine 40 mill grams daily Holding Gabapentin 100 mg 3 times a day per family request due to tremors propofol and fentanyl for goal RASS -2. CV: History of third-degree heart block - dual chambered pacemaker placed 04/11 new-onset afib RVR 06/27 History of Hypertension Lactic acidosis - resolved History of Atrial fibrillation Holding carvedilol 3.125 mg twice a day lisinopril 2.5 mg daily light of hypotension Cardiology - Dr. Dunham has seen Currently on TPN goal 70 cc now with lipids. aggressive K and Mg replacement with ongoing diuresis. may require vasopressors for hypotension. Resp: Acute hypoxic and hypercarbic respiratory failure COPD Right upper lobe calcified granuloma Acute Pulmonary Edema - improving. ARDS vs. TRALI Incentive spirometry while awake Currently on albuterol/ipratropium aerosols every 4 hours with albuterol aerosols every 2 hours when necessary dyspnea 3% hypertonic saline aerosols every 4 hours 5 days for aerosolized mucolytic Intubated 06/28 nebs, vent bundle, hob at 30 degrees wean PEEP. SBTs. wean to extubate if possible. GI: Postop day #7 Exploratory Laparotomy, partial colectomy with takedown splenic flexure and colostomy placement secondary to perforated viscus, perforation at site of splenic flexure with lysis of adhesions from stomach, small bowel and spleen Dr. Soares Admission diagnosis Large bowel obstruction History of internal/external hemorrhoids UC Sigmoid/descending colonic ulcers Liver cysts Hypoalbuminemia Abdominal ascites Hypokalemia Hypomagnesemia Hypernatremia CT abdomen/pelvis on admission revealed dilatation the small bowel. Ascending and transverse colon. Transition point the distal transverse colon. Collapsed descending colon. Cecum thickening. CT angiogram 06/23 revealed perforated viscus/pneumoperitoneum Last admission status post colonoscopy 2. Noted 05/27 unable to transverse sigmoid colon due to stricture. Unable to transverse transverse colon due to stricture 06/03. Sigmoid ulcers. C. difficile positive. home regimen: mesalamine 800 mg 3 times a day prednisone 20 mg daily GI/general surgery consult. Dr. Soares Home medication famotidine 20 mg twice a day for GI prophylaxis. Currently IV 06/24 - TPN at 70 cc an hour with 20% lipids daily start trickle TF if no extubation. wean steroids to hydrocortisone 50mg daily. home dose is prednisone 20mg daily. : Laguna catheter if indicated for accurate I's and O's in a critically ill patient Endo: IDDM Will continue sliding scale insulin Novulin R every 4 hours high with Accu- Cheks to maintain euglycemia Continue 30 units insulin to TPN and insulin detemir 25 units twice a day today 06/25. Renal: Chronic kidney disease stage II 1.1 left renal cyst/tiny right infrarenal cyst Acute kidney disease (on CKD 2) slowly improving. Monitor urine output Accurate I's and O's Heme: Normocytic anemia Thrombocytopenia Leukocytosis Monitor CBC daily. Follow trends Previous admission with thrombocytopenia likely secondary infection/DIC. Transfused 1 unit PRBCs 06/25 ID: History of C. difficile Funguria - asx He was originally on metronidazole 500 mg every 8 hours and vancomycin 125 mg by mouth every 6 hours Infectious disease following. Currently on piperacillin/tazobactam 4.5 g IV every 6 hours Appears to being treated with C. difficile. C. difficile negative this admission Blood cultures 2, no growth today. Culture 06/22 - C. albicans FEN: Hypokalemia Hypomagnesemia Hypocalcemia Replacing electrolytes as clinically indicated MSK: Osteoarthritis Holding calcium carbonate/cholecalciferol 500 mg last 400 units 1 tablet twice a day. Resume when clinically indicated PT evaluate and treat Access -Right subclavian CVL placed 06/23 day #7. keep today for TPN. Prophylaxis - GI -famotidine - DVT - SCD/lovenox Sedrick Robbins MD Jun 30, 2017 15:31
--- NOTE | 2017-06-30 17:14 | PD.WCN.NOT ---
Wound Consult Description: Consult for new colostomy per MARCUS Torres Recommendation: Empty pouch of effluent when 1/3-1/2 full Change appliance every 5-7 days and PRN before leaks occur using cut to fit wafer for stoma size 2" Additional Information: Patient seen on [address] [place] [address] for ostomy assessment Ostomy Type: Colostomy Additional information Patient seen on [address] [place] [address] for ostomy assessment. Colostomy noted to upper right abdomen is pink, edematous, round, moist, lumen noted to center of stoma and functioning with dark green liquid effluent noted in pouch that was emptied by insurance underwriter and disposed of by RN covering for DIPTI Le that was off unit at that time. Appliance was placed on 06/29/17 by insurance underwriter and is noted to be intact. Patient is intubated and no teaching was done today. Marimar Palm [facility] Jun 30, 2017 17:13
[2017-06-30] MEDS: ENOXAPARIN SODIUM 40 MG/0.4 ML SYRINGE SQ SCH (17:21)
--- NOTE | 2017-06-30 17:26 | HHI.IDPN ---
Subjective Subjective Remarks remains on vent afebrile Antibiotics zosyn Allergies: Coded Allergies: No Known Allergies (Unverified Adverse Reaction, Unknown, 05/25/17) Objective . Vital Signs Date Time Temp Pulse Resp B/P (MAP) Pulse Ox O2 Delivery O2 Flow Rate FiO2 06/30/17 14:00 81 06/30/17 13:00 40 06/30/17 13:00 40 06/30/17 12:00 76 06/30/17 12:00 97.7 76 24 97/57 (70) 100 06/30/17 12:00 40 06/30/17 11:57 100 40 06/30/17 10:00 84 06/30/17 08:46 100 Ventilator 40 06/30/17 08:46 100 40 06/30/17 08:00 40 06/30/17 08:00 84 06/30/17 08:00 97.9 84 24 112/67 (82) 100 06/30/17 06:00 91 06/30/17 04:26 100 40 06/30/17 04:00 96 06/30/17 04:00 97.7 96 24 127/72 (90) 100 06/30/17 04:00 40 06/30/17 02:00 86 06/30/17 01:14 100 40 06/30/17 00:00 92 06/30/17 00:00 97.6 83 24 122/70 (87) 100 06/30/17 00:00 40 06/29/17 22:00 88 06/29/17 20:27 100 40 06/29/17 20:00 97.6 80 24 129/69 (89) 100 06/29/17 20:00 40 06/29/17 20:00 86 06/29/17 18:00 81 06/29/17 17:37 100 40 . Laboratory Tests Test 06/30/17 04:55 White Blood Count 10.3 TH/MM3 Red Blood Count 3.16 MIL/MM3 Hemoglobin 8.7 GM/DL Hematocrit 26.3 % Mean Corpuscular Volume 83.4 FL Mean Corpuscular Hemoglobin 27.5 PG Mean Corpuscular Hemoglobin Concent 33.0 % Red Cell Distribution Width 19.6 % Platelet Count 112 TH/MM3 Mean Platelet Volume 11.0 FL Laboratory Tests Test 06/29/17 04:38 06/29/17 17:15 12/5/17 04:55 Blood Urea Nitrogen 31 MG/DL 30 MG/DL Creatinine 0.92 MG/DL 0.83 MG/DL Random Glucose 225 MG/DL 217 MG/DL Calcium Level 7.8 MG/DL 7.8 MG/DL Sodium Level 143 MEQ/L 143 MEQ/L Potassium Level 3.0 MEQ/L 3.4 MEQ/L 3.5 MEQ/L Chloride Level 103 MEQ/L 105 MEQ/L Carbon Dioxide Level 30.1 MEQ/L 31.0 MEQ/L Anion Gap 10 MEQ/L 7 MEQ/L Estimat Glomerular Filtration Rate 82 ML/MIN 92 ML/MIN Microbiology Date/Time Source Procedure Growth Status 06/28/17 06:04 Sputum Endotracheal Gram Stain - Final Complete 06/28/17 06:04 Sputum Endotracheal Sputum Culture - Final RARE GROWTH NORMAL RESPIRATORY EUFEMIA Complete Imaging Last Impressions Chest X-Ray 06/28/17 0000 Signed Impressions: Service Date/Time: Wednesday, June 28, 2017 06:05 - CONCLUSION: 1. Endotracheal tube and nasogastric tube in appropriate position. 2. Mild diffuse bilateral airspace consolidation, improved since the prior exam. Forrest Santos MD Upper Extremity Ultrasound 06/25/17 0000 Signed Impressions: Service Date/Time: May 10:22 - CONCLUSION: Normal examination. Forrest Green MD Abdomen/Pelvis CT 06/23/17 0000 Signed Impressions: Service Date/Time: Friday, June 23, 2017 11:40 - CONCLUSION: Pneumoperitoneum worrisome for perforation of hollow viscus. No acute vascular findings. Forrest Green MD Abdomen X-Ray 06/23/17 0000 Signed Impressions: Service Date/Time: Friday, June 23, 2017 10:13 - CONCLUSION: 1. Findings consistent with improving partial small bowel obstruction. Maynor Shepard MD Physical Exam CONSTITUTIONAL/GENERAL: This is an adequately nourished patient, in no apparent distress. TUBES/LINES/DRAINS: SKIN: No jaundice, rashes, or lesions. Skin temperature appropriate. Not diaphoretic. EYES: Pupils equal and round and reactive. Extraocular motions intact. No scleral icterus. No injection or drainage. Fundi not examined. Orally intubated CARDIOVASCULAR: Regular rate and rhythm without murmurs, gallops, or rubs. No JVD. Peripheral pulses symmetric. Pacer in place L chest RESPIRATORY/CHEST: Symmetric, increased respirations. B/L rhonchi to auscultation. Breath sounds equal bilaterally. GASTROINTESTINAL: Abdomen soft, not tender not distended. Stoma in place pink , with mild serosang d/c GENITOURINARY: Without palpable bladder distension. Laguna catheter in place with clear yellow urine MUSCULOSKELETAL: Extremities with prominent clubbing, + LE edema. No joint tenderness or effusion noted. No calf tenderness. No mottling or clubbing. NEUROLOGICAL: sedated PSYCHIATRIC: unable to assess Assessment & Plan Remarks Bowel obstruction, recurrent with acute perforation and fecal peritonitis - sp emergent surgery: resection plus colostomy - path w ischemia - stricture was discovered in op Recent C.diff, C.diff PCR negative Hypoxia, effusions ? ARDS High risk for surgery per cardiac eval'n Fuguria, C/ albicans Persisten leukocytosis - going down Thjrobocytopenia - new ? abx side effectsd - fibrinogen is high, coags wnl , not cw sepsis New issue: probably TRALI, PNA less likely cont zosyn fu WBC, plts fu sputum clx Zulema Mason MD Jun 30, 2017 17:26
[2017-06-30] MEDS: [UNRECOGNIZED DRUG - OTHER] IV-CENTRAL SCH ×9 (20:00)
[2017-06-30] MEDS: POTASSIUM CHLORIDE IV-CENTRAL SCH ×9 (20:00)
[2017-06-30] MEDS: POTASSIUM PHOSPHATE IV-CENTRAL SCH ×9 (20:00)
[2017-06-30] MEDS: DONEPEZIL HCL 5 MG TAB PO SCH (21:00)
[2017-06-30] MEDS: FAT EMULSION 20% INJ 250 ML (Daily over 8 hours) IV-CENTRAL SCH (21:30)
[2017-07-01] VITALS (14 sets, daily range): BP systolic 119–124; BP diastolic 59–71; PULSE 69–90; RESP 13–15; TEMP 98.2–98.8; O2SAT 96–99
[2017-07-01] MEDS: INSULIN ASPART SUPPLEMENTAL SCALE SQ SCH ×6 (01:00→21:00)
[2017-07-01] MEDS: PIPERACIL-TAZO 4.5 GM PREMIX 100 ML IV SCH ×2 (02:12→08:48)
[2017-07-01] MEDS: CHLORHEXIDINE GLUCONATE 2 % 1 PACK (2 CLOTHS) TOP SCH (04:00)
[2017-07-01] MEDS: MORPHINE SULFATE 4 MG/ML INJ IV PUSH PRN ×2 (05:33→13:06)
[2017-07-01 05:37] LABS: HEMATOCRIT 25.2 % (39.0-51.0); MEAN CELL VOLUME 84.5 FL (80.0-100.0); PLATELET COUNT 120 TH/MM3 (150-450); RED BLOOD COUNT 2.99 MIL/MM3 (4.50-5.90); RED CELL DISTRIBUTION WIDTH 19.1 % (11.6-17.2); REVIEW FLAG FINAL; WHITE BLOOD COUNT 13.2 TH/MM3 (4.0-11.0)
[2017-07-01 05:57] LABS: BICARBONATE 28.9 MEQ/L (21.0-32.0)
[2017-07-01 06:16] LABS: POTASSIUM 2.7 MEQ/L (3.5-5.1)
[2017-07-01] MEDS: POTASSIUM CHLOR 40 MEQ PREMIX 100 ML IV PRN ×2 (06:28→08:56)
[2017-07-01] MEDS: FAMOTIDINE 20 MG/2 ML VIAL IV PUSH SCH ×2 (08:57→21:52)
[2017-07-01] MEDS: HYDROCORTISONE SOD SUCCINATE 100 MG VIAL IV PUSH SCH (08:57)
[2017-07-01] MEDS: SODIUM CHLORIDE 0.9% FLUSH 10 ML FLUSH IV FLUSH SCH ×2 (08:57→21:00)
[2017-07-01] MEDS: ASCORBIC ACID 500 MG TAB PO SCH ×2 (08:58→21:52)
[2017-07-01] MEDS: CHLORHEXIDINE 0.12% (ORAL KIT) 15 ML CUP MT SCH ×2 (08:58→19:47)
[2017-07-01] MEDS: FLUoxetine HCL 20 MG CAP PO SCH (08:58)
[2017-07-01] MEDS: INSULIN DETEMIR 100 UNITS/ML VIAL SQ SCH ×2 (09:00→21:00)
--- NOTE | 2017-07-01 10:07 | HHI.PR ---
Subjective Subjective Notes Resting in bed Extubated late yesterday afternoon; Respiratory status stable overnight "I feel pretty good today." Objective Vitals/I&O Vital Signs Date Time Temp Pulse Resp B/P (MAP) Pulse Ox O2 Delivery O2 Flow Rate FiO2 07/01/17 08:12 98 Nasal Cannula 2.00 07/01/17 06:00 69 07/01/17 05:38 13 07/01/17 04:00 98.2 124/59 (80) 06/30/17 16:00 40 Labs Laboratory Tests Test 07/01/17 05:20 White Blood Count 13.2 Red Blood Count 2.99 Hemoglobin 8.1 Hematocrit 25.2 Mean Corpuscular Volume 84.5 Mean Corpuscular Hemoglobin 27.0 Mean Corpuscular Hemoglobin Concent 32.0 Red Cell Distribution Width 19.1 Platelet Count 120 Mean Platelet Volume 10.5 Blood Urea Nitrogen 27 Creatinine 0.66 Random Glucose 75 Calcium Level 7.7 Sodium Level 144 Potassium Level 2.7 Chloride Level 108 Carbon Dioxide Level 28.9 Anion Gap 7 Estimat Glomerular Filtration Rate 120 Date/Time Source Procedure Growth Status 06/22/17 12:23 Blood Peripheral Aerobic Blood Culture - Final NO GROWTH IN 5 DAYS Complete 06/22/17 12:23 Blood Peripheral Anaerobic Blood Culture - Final NO GROWTH IN 5 DAYS Complete 06/28/17 06:04 Sputum Endotracheal Gram Stain - Final Complete 06/28/17 06:04 Sputum Endotracheal Sputum Culture - Final RARE GROWTH NORMAL RESPIRATORY EUFEMIA Complete 06/22/17 04:20 Urine Catheterized Urine Urine Culture - Final Oumou Albicans Complete Cardiovascular: Regular Lungs: Clear Abdomen: Other (midline incision with alma delia; abdomen soft and non distended; colostomy --edematous; stoma pink; stool in bag ) Extremities: No edema A/P Assessment and Plan 66 year old male POD8 exlap; TOR; partial colectomy, takedown of splenic flexure , colostomy -Extubated; respiratory status much improved -Clear liquids; advance as tolerated -Continue antibiotics---Zosyn/Flagyl/Diflucan -Continue TPN -Colostomy RN is following patient -Patient needs aggressive PT/OT -Discussed with DIPTI Le Attending Statement patient seen at bedside doing better et tube out ok for diet possible transfer soon to floor Attestation The exam, history, and the medical decision-making described in the above note were completed with the assistance of the mid-level provider. I reviewed and agree with the findings presented. I attest that I had a [id number] encounter with the patient on the same day, and personally performed and documented my assessment and findings in the medical record. Marianne Torres Jul 01, 2017 10:07 Michael Soares MD Jul 07, 2017 04:28
--- NOTE | 2017-07-01 10:27 | HHI.CCPN ---
Subjective Remarks/Hospital Course 66-year-old male currently residing at the rehabilitation facility comes in due to fever with low blood pressure, abdominal pain and vomiting. He has history of bowel obstruction in the past. He also was diagnosed with C. difficile. Per patient his abdominal pain never got any better since being in the hospital about a month ago. However, he does say that it has gotten worse recently. He vomited today. He says he continues to have diarrhea. He was found to be febrile. He denies chest pain or shortness of breath. He was admitted in the end of April for bowel obstruction and presented in similar fashion at that time. 06/22: Seen and examined. Currently not on vasopressors. Patient had a large emesis and "feels better" now. Abdomen distended. Patient states she doesn't have a local hearing therapist. Pacemaker was "checked" prior to arriving here from [place] within the past several months. 06/23: Afebrile. Chief complaint of abdominal pain bilateral lower quadrants infraumbilical. One bowel movement documented however patient denies.. Very rare flatus. Plan for CT angiogram of the abdomen today 06/24: History status post exploratory lap, partial colectomy with takedown from the splenic flexure creation of colostomy secondary to perforated viscus, perforation at site of splenic flexure with lysis of adhesions from stomach, small bowel and splenic flexure adhered to colon.. Patient received 4500 cc crystalloid. EBL 150. 500 cc urine output. 100 cc NG tube. Patient was extubated overnight with central line placed. Currently on noninvasive ventilation remains acidotic. Will check chest x-ray this AM monitor volume status along with CVP. Pain appears controlled. 06/25: Resting comfortably in bed. Complaining of "tremors". Afebrile. Positive stool from ostomy 1 residual bowel movement overnight. PECOS drain still not sealing. 06/26: less comfortable this morning on my evaluation. tachypneic and severely dyspneic. CXR with evidence of severe volume overload. 5L up from admission. patient endorses severe SOB and orthopnea. no chest pain. ROS otherwise negative. 06/27: new-onset afib RVR this AM, HR in 160s. recheck labs, low K, low Mg. still volume overloaded on clinical exam. +jvd. on HF NC still, 50% fio2. good diuresis yesterday. suspect new-onset afib RVR is combination of volume overload and electrolyte abn. patient still complains of dyspnea. no CP. no other changes. 06/28: Worsening respiratory distress, now with refractory hypoxemia despite NRBM. He is too exhausted to continue, perhaps exacerbated by new a-fib and increased lung venous congestion. Will require intubation and mechanical ventilation. 06/29: clinically improving. hypoxia improving. CXR with persistent patchy infiltrates concerning for ARDS or TRALI. afib RVR yesterday, controlled with electrolyte replacement and metoprolol. still high PEEP requirements. Subjective 06/30: clinically continues to improve. tolerating CPAP. if passes, will pursue extubation. ostomy now with improving output, ROBF. 07/01: Improved gas exchange. CXR clearing. Aim for extubation. Objective Vital Signs Date Time Temp Pulse Resp B/P (MAP) Pulse Ox O2 Delivery O2 Flow Rate FiO2 07/01/17 08:12 98 Nasal Cannula 2.00 07/01/17 06:00 69 07/01/17 05:38 13 07/01/17 04:00 98.2 124/59 (80) 06/30/17 16:00 40 Intake and Output 07/01/17 07/01/17 07/02/17 08:00 16:00 00:00 Intake Total 2678 ml Output Total 900 ml Balance 1778 ml Result Diagram: 07/01/17 0520 07/01/17 0520 Imaging Last Impressions Chest X-Ray 06/25/17 0600 Signed Impressions: Service Date/Time: May 05:34 - CONCLUSION: Worsening consolidation likely related to worsening edema. Forrest Doshi MD Abdomen/Pelvis CT 06/23/17 0000 Signed Impressions: Service Date/Time: Friday, June 23, 2017 11:40 - CONCLUSION: Pneumoperitoneum worrisome for perforation of hollow viscus. No acute vascular findings. Forrest Green MD Abdomen X-Ray 06/23/17 0000 Signed Impressions: Service Date/Time: Friday, June 23, 2017 10:13 - CONCLUSION: 1. Findings consistent with improving partial small bowel obstruction. Maynor Shepard MD Objective Remarks GENERAL: 66-year-old male, lying in bed, intubated, sedated SKIN: Warm and dry. Well perfused HEAD: Atraumatic. Normocephalic. EYES: Pupils equal, round, reactive. NECK: Trachea midline. Orally intubated. CARDIOVASCULAR: normal rate, regular rhythm. sinus this AM. RESPIRATORY: intubated, PRVC, fio2 40%, peep 8. spo2 99%--> transitioned to PSV 5/8/40% -> 5/5. GASTROINTESTINAL: Abdomen midline incision is clean dry and intact. Right lower quadrant ostomy is pink with some brown stool noted. MUSCULOSKELETAL: Extremities with 1+ lower extremity bilateral edema. No obvious deformities. NEUROLOGICAL: RASS -1. follows commands. Date of Insertion: Jun 23, 2017 Line: Central Venous Catheter Side: Right Location: Subclavian A/P Assessment and Plan Assessment: 66yM s/p colonic perforation and intra-abdominal contamination, complicated by hypoxic respiratory failure requiring intubation. Clinically appears to be lung injury, ARDS vs. TRALI. continue negative fluid balance and supportive care. start SBTs and may be able to extubate today or tomorrow. Neuro/Psych: Acute toxic metabolic encephalopathy secondary to sepsis Dementia disorder NOS Depression NOS Peripheral neuropathy Currently holding donepezil 5 mg at night for dementia Acetaminophen (Ofirmev) IV 1 g every 8 hours when necessary for fever Morphine sulfate 2-4 mg every 2 hours as needed for pain management Continue Fluoxetine 40 mill grams daily Holding Gabapentin 100 mg 3 times a day per family request due to tremors propofol and fentanyl for goal RASS -2. CV: History of third-degree heart block - dual chambered pacemaker placed 04/11 new-onset afib RVR 06/27 History of Hypertension Lactic acidosis - resolved History of Atrial fibrillation Holding carvedilol 3.125 mg twice a day lisinopril 2.5 mg daily light of hypotension Cardiology - Dr. Dunham has seen Currently on TPN goal 70 cc now with lipids. aggressive K and Mg replacement with ongoing diuresis. may require vasopressors for hypotension. Resp: Acute hypoxic and hypercarbic respiratory failure COPD Right upper lobe calcified granuloma Acute Pulmonary Edema - improving. ARDS vs. TRALI Incentive spirometry while awake Currently on albuterol/ipratropium aerosols every 4 hours with albuterol aerosols every 2 hours when necessary dyspnea 3% hypertonic saline aerosols every 4 hours 5 days for aerosolized mucolytic Intubated 06/28 nebs, vent bundle, hob at 30 degrees wean PEEP. SBTs. wean to extubate if possible. GI: Postop day #7 Exploratory Laparotomy, partial colectomy with takedown splenic flexure and colostomy placement secondary to perforated viscus, perforation at site of splenic flexure with lysis of adhesions from stomach, small bowel and spleen Dr. Soares Admission diagnosis Large bowel obstruction History of internal/external hemorrhoids UC Sigmoid/descending colonic ulcers Liver cysts Hypoalbuminemia Abdominal ascites Hypokalemia Hypomagnesemia Hypernatremia CT abdomen/pelvis on admission revealed dilatation the small bowel. Ascending and transverse colon. Transition point the distal transverse colon. Collapsed descending colon. Cecum thickening. CT angiogram 06/23 revealed perforated viscus/pneumoperitoneum Last admission status post colonoscopy 2. Noted 05/27 unable to transverse sigmoid colon due to stricture. Unable to transverse transverse colon due to stricture 06/03. Sigmoid ulcers. C. difficile positive. home regimen: mesalamine 800 mg 3 times a day prednisone 20 mg daily GI/general surgery consult. Dr. Soares Home medication famotidine 20 mg twice a day for GI prophylaxis. Currently IV 06/24 - TPN at 70 cc an hour with 20% lipids daily start trickle TF if no extubation. wean steroids to hydrocortisone 50mg daily. home dose is prednisone 20mg daily. : Laguna catheter if indicated for accurate I's and O's in a critically ill patient Endo: IDDM Will continue sliding scale insulin Novulin R every 4 hours high with Accu- Cheks to maintain euglycemia Continue 30 units insulin to TPN and insulin detemir 25 units twice a day today 06/25. Renal: Chronic kidney disease stage II 1.1 left renal cyst/tiny right infrarenal cyst Acute kidney disease (on CKD 2) slowly improving. Monitor urine output Accurate I's and O's Heme: Normocytic anemia Thrombocytopenia Leukocytosis Monitor CBC daily. Follow trends Previous admission with thrombocytopenia likely secondary infection/DIC. Transfused 1 unit PRBCs 06/25 ID: History of C. difficile Funguria - asx He was originally on metronidazole 500 mg every 8 hours and vancomycin 125 mg by mouth every 6 hours Infectious disease following. Currently on piperacillin/tazobactam 4.5 g IV every 6 hours Appears to being treated with C. difficile. C. difficile negative this admission Blood cultures 2, no growth today. Culture 06/22 - C. albicans FEN: Hypokalemia Hypomagnesemia Hypocalcemia Replacing electrolytes as clinically indicated MSK: Osteoarthritis Holding calcium carbonate/cholecalciferol 500 mg last 400 units 1 tablet twice a day. Resume when clinically indicated PT evaluate and treat Access -Right subclavian CVL placed 06/23 day #8. keep today for TPN. Prophylaxis - GI -famotidine - DVT - SCD/lovenox Overall impression: Improving respiratory function, aim to extubate. Michael Cornelius MD Jul 01, 2017 10:27
--- NOTE | 2017-07-01 11:14 | HHI.CCPN ---
Subjective Remarks/Hospital Course 66-year-old male currently residing at the rehabilitation facility comes in due to fever with low blood pressure, abdominal pain and vomiting. He has history of bowel obstruction in the past. He also was diagnosed with C. difficile. Per patient his abdominal pain never got any better since being in the hospital about a month ago. However, he does say that it has gotten worse recently. He vomited today. He says he continues to have diarrhea. He was found to be febrile. He denies chest pain or shortness of breath. He was admitted in the end of April for bowel obstruction and presented in similar fashion at that time. 06/22: Seen and examined. Currently not on vasopressors. Patient had a large emesis and "feels better" now. Abdomen distended. Patient states she doesn't have a local scrap crusher. Pacemaker was "checked" prior to arriving here from [place] within the past several months. 06/23: Afebrile. Chief complaint of abdominal pain bilateral lower quadrants infraumbilical. One bowel movement documented however patient denies.. Very rare flatus. Plan for CT angiogram of the abdomen today 06/24: History status post exploratory lap, partial colectomy with takedown from the splenic flexure creation of colostomy secondary to perforated viscus, perforation at site of splenic flexure with lysis of adhesions from stomach, small bowel and splenic flexure adhered to colon.. Patient received 4500 cc crystalloid. EBL 150. 500 cc urine output. 100 cc NG tube. Patient was extubated overnight with central line placed. Currently on noninvasive ventilation remains acidotic. Will check chest x-ray this AM monitor volume status along with CVP. Pain appears controlled. 06/25: Resting comfortably in bed. Complaining of "tremors". Afebrile. Positive stool from ostomy 1 residual bowel movement overnight. PECOS drain still not sealing. 06/26: less comfortable this morning on my evaluation. tachypneic and severely dyspneic. CXR with evidence of severe volume overload. 5L up from admission. patient endorses severe SOB and orthopnea. no chest pain. ROS otherwise negative. 06/27: new-onset afib RVR this AM, HR in 160s. recheck labs, low K, low Mg. still volume overloaded on clinical exam. +jvd. on HF NC still, 50% fio2. good diuresis yesterday. suspect new-onset afib RVR is combination of volume overload and electrolyte abn. patient still complains of dyspnea. no CP. no other changes. 06/28: Worsening respiratory distress, now with refractory hypoxemia despite NRBM. He is too exhausted to continue, perhaps exacerbated by new a-fib and increased lung venous congestion. Will require intubation and mechanical ventilation. 06/29: clinically improving. hypoxia improving. CXR with persistent patchy infiltrates concerning for ARDS or TRALI. afib RVR yesterday, controlled with electrolyte replacement and metoprolol. still high PEEP requirements. Subjective 06/30: clinically continues to improve. tolerating CPAP. if passes, will pursue extubation. ostomy now with improving output, ROBF. 07/01: Improved gas exchange. CXR clearing. Breathing comfortably. Objective Vital Signs Date Time Temp Pulse Resp B/P (MAP) Pulse Ox O2 Delivery O2 Flow Rate FiO2 07/01/17 08:12 98 Nasal Cannula 2.00 07/01/17 06:00 69 07/01/17 05:38 13 07/01/17 04:00 98.2 124/59 (80) 06/30/17 16:00 40 Intake and Output 07/01/17 07/01/17 07/02/17 08:00 16:00 00:00 Intake Total 2678 ml Output Total 900 ml Balance 1778 ml Result Diagram: 07/01/17 0520 07/01/17 0520 Imaging Last Impressions Chest X-Ray 06/25/17 0600 Signed Impressions: Service Date/Time: May 05:34 - CONCLUSION: Worsening consolidation likely related to worsening edema. Forrest Doshi MD Abdomen/Pelvis CT 06/23/17 0000 Signed Impressions: Service Date/Time: Friday, June 23, 2017 11:40 - CONCLUSION: Pneumoperitoneum worrisome for perforation of hollow viscus. No acute vascular findings. Forrest Green MD Abdomen X-Ray 06/23/17 0000 Signed Impressions: Service Date/Time: Friday, June 23, 2017 10:13 - CONCLUSION: 1. Findings consistent with improving partial small bowel obstruction. Maynor Shepard MD Objective Remarks GENERAL: 66-year-old male, lying in bed, intubated, sedated SKIN: Warm and dry. Well perfused HEAD: Atraumatic. Normocephalic. EYES: Pupils equal, round, reactive. NECK: Trachea midline. Orally intubated. CARDIOVASCULAR: normal rate, regular rhythm. sinus this AM. RESPIRATORY: intubated, PRVC, fio2 40%, peep 8. spo2 99%--> transitioned to PSV 5/8/40% -> 5/5. GASTROINTESTINAL: Abdomen midline incision is clean dry and intact. Right lower quadrant ostomy is pink with some brown stool noted. MUSCULOSKELETAL: Extremities with 1+ lower extremity bilateral edema. No obvious deformities. NEUROLOGICAL: RASS 1. follows commands. Conversant. Date of Insertion: Jun 23, 2017 Line: Central Venous Catheter Side: Right Location: Subclavian A/P Assessment and Plan Assessment: 66yM s/p colonic perforation and intra-abdominal contamination, complicated by hypoxic respiratory failure requiring intubation. Clinically appears to be lung injury, ARDS vs. TRALI. continue negative fluid balance and supportive care. start SBTs and may be able to extubate today or tomorrow. Neuro/Psych: Acute toxic metabolic encephalopathy secondary to sepsis Dementia disorder NOS Depression NOS Peripheral neuropathy Currently holding donepezil 5 mg at night for dementia Acetaminophen (Ofirmev) IV 1 g every 8 hours when necessary for fever Morphine sulfate 2-4 mg every 2 hours as needed for pain management Continue Fluoxetine 40 mill grams daily Holding Gabapentin 100 mg 3 times a day per family request due to tremors propofol and fentanyl for goal RASS -2. CV: History of third-degree heart block - dual chambered pacemaker placed 04/11 new-onset afib RVR 06/27 History of Hypertension Lactic acidosis - resolved History of Atrial fibrillation Holding carvedilol 3.125 mg twice a day lisinopril 2.5 mg daily light of hypotension Cardiology - Dr. Dunham has seen Currently on TPN goal 70 cc now with lipids. aggressive K and Mg replacement with ongoing diuresis. may require vasopressors for hypotension. Resp: Acute hypoxic and hypercarbic respiratory failure COPD Right upper lobe calcified granuloma Acute Pulmonary Edema - improving. ARDS vs. TRALI Incentive spirometry while awake Currently on albuterol/ipratropium aerosols every 4 hours with albuterol aerosols every 2 hours when necessary dyspnea 3% hypertonic saline aerosols every 4 hours 5 days for aerosolized mucolytic Intubated 06/28 nebs, vent bundle, hob at 30 degrees wean PEEP. SBTs. wean to extubate if possible -> extubated 06/30 GI: Postop day #7 Exploratory Laparotomy, partial colectomy with takedown splenic flexure and colostomy placement secondary to perforated viscus, perforation at site of splenic flexure with lysis of adhesions from stomach, small bowel and spleen Dr. Soares Admission diagnosis Large bowel obstruction History of internal/external hemorrhoids UC Sigmoid/descending colonic ulcers Liver cysts Hypoalbuminemia Abdominal ascites Hypokalemia Hypomagnesemia Hypernatremia CT abdomen/pelvis on admission revealed dilatation the small bowel. Ascending and transverse colon. Transition point the distal transverse colon. Collapsed descending colon. Cecum thickening. CT angiogram 06/23 revealed perforated viscus/pneumoperitoneum Last admission status post colonoscopy 2. Noted 05/27 unable to transverse sigmoid colon due to stricture. Unable to transverse transverse colon due to stricture 06/03. Sigmoid ulcers. C. difficile positive. home regimen: mesalamine 800 mg 3 times a day prednisone 20 mg daily GI/general surgery consult. Dr. Soares Home medication famotidine 20 mg twice a day for GI prophylaxis. Currently IV 06/24 - TPN at 70 cc an hour with 20% lipids daily start trickle TF if no extubation. wean steroids to hydrocortisone 50mg daily. home dose is prednisone 20mg daily. : Laguna catheter if indicated for accurate I's and O's in a critically ill patient Endo: IDDM Will continue sliding scale insulin Novulin R every 4 hours high with Accu- Cheks to maintain euglycemia Continue 30 units insulin to TPN and insulin detemir 25 units twice a day today 06/25. Renal: Chronic kidney disease stage II 1.1 left renal cyst/tiny right infrarenal cyst Acute kidney disease (on CKD 2) slowly improving. Monitor urine output Accurate I's and O's Heme: Normocytic anemia Thrombocytopenia Leukocytosis Monitor CBC daily. Follow trends Previous admission with thrombocytopenia likely secondary infection/DIC. Transfused 1 unit PRBCs 06/25 ID: History of C. difficile Funguria - asx He was originally on metronidazole 500 mg every 8 hours and vancomycin 125 mg by mouth every 6 hours Infectious disease following. Currently on piperacillin/tazobactam 4.5 g IV every 6 hours Appears to being treated with C. difficile. C. difficile negative this admission Blood cultures 2, no growth today. Culture 06/22 - C. albicans FEN: Hypokalemia Hypomagnesemia Hypocalcemia Replacing electrolytes as clinically indicated MSK: Osteoarthritis Holding calcium carbonate/cholecalciferol 500 mg last 400 units 1 tablet twice a day. Resume when clinically indicated PT evaluate and treat Access -Right subclavian CVL placed 06/23 day #8. keep today for TPN. Probably d/c if PO is tolerated. Prophylaxis - GI -famotidine - DVT - SCD/lovenox Overall impression: Improved respiratory function. Tolerating sips PO. Michael Cornelius MD Jul 01, 2017 11:14
--- NOTE | 2017-07-01 15:02 | PD.WCN.NOT ---
Wound Consult Description: Consult for new colostomy per MARCUS Torres Communicated with: DIPTI Le Patient Recommendation: Ostomy Care: Empty ostomy pouch of effluent when 1/3-1/2 full Change wafer every 3-5 days and PRN before leaks occur using a cut to fit appliance for stoma size 2" WOUND CARE: 1.Please cleanse wound to sacrum with normal saline or wound suction plate carrier cleaner and pat dry. Apply Optifoam gentle border over wound. Change dressing every 3 days or PRN if saturated or dislodged.Please apply skin prep to periwound before applying dressing. 2.Reposition patient every 2 hours and PRN to offload pressure from padmini prominences. Additional Information: Patient seen on [address] [place] [address] for ostomy assessment and RN requested assistance in turning patient to apply foam dressing to sacrum as recommended by service center supervisor previously. Ostomy Type: Colostomy Surgeon: Michael Soares MD Date of Surgery: Jun 23, 2017 Educated patient on: Stoma Appliances Additional information Patient seen on [address] [place] [address] for ostomy assessment and teaching. Stoma is 2" pink, round, edematous, moist, moderately protruding, lumen noted in center of stoma and functioning with dark green liquid effluent noted in pouch that was emptied by DIPTI Le. Coloplast appliance that was placed by display card writer is still intact without leaks noted. Marimar Palm [facility] Jul 01, 2017 15:02
--- NOTE | 2017-07-01 16:01 | HHI.IDPN ---
Subjective Subjective Remarks doing well extubated feeling "great" afebrile Antibiotics zosyn Allergies: Coded Allergies: No Known Allergies (Unverified Adverse Reaction, Unknown, 05/25/17) Objective . Vital Signs Date Time Temp Pulse Resp B/P (MAP) Pulse Ox O2 Delivery O2 Flow Rate FiO2 07/01/17 14:00 86 07/01/17 12:00 88 07/01/17 12:00 98.6 88 14 122/71 (88) 97 07/01/17 10:00 86 07/01/17 08:12 98 Nasal Cannula 2.00 07/01/17 08:00 98.3 74 13 119/62 (81) 99 07/01/17 08:00 74 07/01/17 06:00 69 07/01/17 05:38 13 07/01/17 04:00 73 07/01/17 04:00 98.2 73 13 124/59 (80) 97 07/01/17 02:00 90 07/01/17 00:00 98.6 86 14 123/66 (85) 98 07/01/17 00:00 90 06/30/17 22:00 90 06/30/17 20:07 100 Nasal Cannula 4.00 06/30/17 20:00 90 06/30/17 20:00 98.2 96 12 121/66 (84) 100 06/30/17 18:35 100 Nasal Cannula 4 06/30/17 18:00 89 06/30/17 16:00 91 06/30/17 16:00 99.1 91 20 137/72 (93) 100 06/30/17 16:00 40 07/01/17 07/01/17 07/02/17 15:00 23:00 07:00 Intake Total 349 ml Balance 349 ml IV Total 349 ml . Laboratory Tests Test 06/30/17 04:55 07/01/17 05:20 White Blood Count 10.3 TH/MM3 13.2 TH/MM3 Red Blood Count 3.16 MIL/MM3 2.99 MIL/MM3 Hemoglobin 8.7 GM/DL 8.1 GM/DL Hematocrit 26.3 % 25.2 % Mean Corpuscular Volume 83.4 FL 84.5 FL Mean Corpuscular Hemoglobin 27.5 PG 27.0 PG Mean Corpuscular Hemoglobin Concent 33.0 % 32.0 % Red Cell Distribution Width 19.6 % 19.1 % Platelet Count 112 TH/MM3 120 TH/MM3 Mean Platelet Volume 11.0 FL 10.5 FL Laboratory Tests Test 06/29/17 17:15 06/30/17 04:55 07/01/17 05:20 07/01/17 14:42 Potassium Level 3.4 MEQ/L 3.5 MEQ/L 2.7 MEQ/L 3.4 MEQ/L Blood Urea Nitrogen 30 MG/DL 27 MG/DL Creatinine 0.83 MG/DL 0.66 MG/DL Random Glucose 217 MG/DL 75 MG/DL Calcium Level 7.8 MG/DL 7.7 MG/DL Sodium Level 143 MEQ/L 144 MEQ/L Chloride Level 105 MEQ/L 108 MEQ/L Carbon Dioxide Level 31.0 MEQ/L 28.9 MEQ/L Anion Gap 7 MEQ/L 7 MEQ/L Estimat Glomerular Filtration Rate 92 ML/MIN 120 ML/MIN Imaging Last Impressions Chest X-Ray 06/28/17 0000 Signed Impressions: Service Date/Time: Wednesday, June 28, 2017 06:05 - CONCLUSION: 1. Endotracheal tube and nasogastric tube in appropriate position. 2. Mild diffuse bilateral airspace consolidation, improved since the prior exam. Forrest Santos MD Upper Extremity Ultrasound 06/25/17 0000 Signed Impressions: Service Date/Time: May 10:22 - CONCLUSION: Normal examination. Forrest Green MD Abdomen/Pelvis CT 06/23/17 0000 Signed Impressions: Service Date/Time: Friday, June 23, 2017 11:40 - CONCLUSION: Pneumoperitoneum worrisome for perforation of hollow viscus. No acute vascular findings. Forrest Green MD Abdomen X-Ray 06/23/17 0000 Signed Impressions: Service Date/Time: Friday, June 23, 2017 10:13 - CONCLUSION: 1. Findings consistent with improving partial small bowel obstruction. Maynor Shepard MD Physical Exam CONSTITUTIONAL/GENERAL: This is an adequately nourished patient, in no apparent distress. TUBES/LINES/DRAINS: SKIN: No jaundice, rashes, or lesions. Skin temperature appropriate. Not diaphoretic. EYES: Pupils equal and round and reactive. Extraocular motions intact. No scleral icterus. No injection or drainage. Fundi not examined. CARDIOVASCULAR: Regular rate and rhythm without murmurs, gallops, or rubs. No JVD. Peripheral pulses symmetric. Pacer in place L chest RESPIRATORY/CHEST: Symmetric, increased respirations. B/L rhonchi to auscultation. Breath sounds equal bilaterally. GASTROINTESTINAL: Abdomen soft, not tender not distended. Stoma in place pink , with dark brown stool GENITOURINARY: Without palpable bladder distension. Laguna catheter in place with clear yellow urine MUSCULOSKELETAL: Extremities with prominent clubbing, + LE edema. No joint tenderness or effusion noted. No calf tenderness. No mottling or clubbing. NEUROLOGICAL: awake, alert, talking PSYCHIATRIC: calm and cooperative Assessment & Plan Remarks Bowel obstruction, recurrent with acute perforation and fecal peritonitis - sp emergent surgery: resection plus colostomy - path w ischemia - stricture was discovered in op Recent C.diff, C.diff PCR negative Hypoxia, effusions ? ARDS High risk for surgery per cardiac eval'n Fuguria, C/ albicans Persisten leukocytosis - going down Thjrobocytopenia - new ? abx side effectsd - fibrinogen is high, coags wnl , not cw sepsis TRALI, resolved acute VDRF PNA unlikely dc zosyn fu WBC, plts fu sputum clx dw Dr Powell will sign off please reconsult if new question arise Zulema Mason MD Jul 01, 2017 16:01
[2017-07-01] MEDS: ENOXAPARIN SODIUM 40 MG/0.4 ML SYRINGE SQ SCH (18:20)
[2017-07-01] MEDS: [UNRECOGNIZED DRUG - OTHER] IV-CENTRAL SCH ×9 (19:47)
[2017-07-01] MEDS: FAT EMULSION 20% INJ 250 ML (Daily over 8 hours) IV-CENTRAL SCH (19:47)
[2017-07-01] MEDS: POTASSIUM CHLORIDE IV-CENTRAL SCH ×9 (19:47)
[2017-07-01] MEDS: POTASSIUM PHOSPHATE IV-CENTRAL SCH ×9 (19:47)
[2017-07-01] MEDS: MORPHINE SULFATE 2 MG/ML INJ IV PUSH PRN (20:13)
[2017-07-01] MEDS: RESP: ALBUTEROL 2.5 MG/3 ML NEB (PRN) NEB (20:25)
[2017-07-01] MEDS: DONEPEZIL HCL 5 MG TAB PO SCH (21:52)
[2017-07-02] VITALS (12 sets, daily range): BP systolic 114–133; BP diastolic 59–65; PULSE 80–96; RESP 17–51; TEMP 98–99.2; O2SAT 93–96
[2017-07-02] MEDS: INSULIN ASPART SUPPLEMENTAL SCALE SQ SCH ×6 (01:00→21:00)
[2017-07-02] MEDS: CHLORHEXIDINE GLUCONATE 2 % 1 PACK (2 CLOTHS) TOP SCH (03:52)
[2017-07-02 07:38] LABS: HEMATOCRIT 24.6 % (39.0-51.0); MEAN CELL VOLUME 83.3 FL (80.0-100.0); MEAN CORPUSCULAR HEMOGLOBIN 27.3 PG (27.0-34.0); MEAN CORPUSCULAR HGB CONC 32.8 % (32.0-36.0); PLATELET COUNT 131 TH/MM3 (150-450); RED BLOOD COUNT 2.95 MIL/MM3 (4.50-5.90); RED CELL DISTRIBUTION WIDTH 18.8 % (11.6-17.2); REVIEW FLAG FINAL; WHITE BLOOD COUNT 16.5 TH/MM3 (4.0-11.0)
[2017-07-02 07:56] LABS: BICARBONATE 24.9 MEQ/L (21.0-32.0); POTASSIUM 3.5 MEQ/L (3.5-5.1)
[2017-07-02] MEDS: CHLORHEXIDINE 0.12% (ORAL KIT) 15 ML CUP MT SCH ×2 (08:00→20:00)
[2017-07-02] MEDS: HYDROCORTISONE SOD SUCCINATE 100 MG VIAL IV PUSH SCH (08:31)
[2017-07-02] MEDS: FLUoxetine HCL 20 MG CAP PO SCH ×2 (08:31→08:46)
[2017-07-02] MEDS: ASCORBIC ACID 500 MG TAB PO SCH ×3 (08:31→19:44)
[2017-07-02] MEDS: SODIUM CHLORIDE 0.9% FLUSH 10 ML FLUSH IV FLUSH SCH ×2 (08:35→21:00)
[2017-07-02] MEDS: FAMOTIDINE 20 MG/2 ML VIAL IV PUSH SCH ×2 (08:35→19:44)
[2017-07-02] MEDS: INSULIN DETEMIR 100 UNITS/ML VIAL SQ SCH ×2 (08:35→21:00)
--- NOTE | 2017-07-02 08:45 | HHI.CCPN ---
Subjective Remarks/Hospital Course 66-year-old male currently residing at the rehabilitation facility comes in due to fever with low blood pressure, abdominal pain and vomiting. He has history of bowel obstruction in the past. He also was diagnosed with C. difficile. Per patient his abdominal pain never got any better since being in the hospital about a month ago. However, he does say that it has gotten worse recently. He vomited today. He says he continues to have diarrhea. He was found to be febrile. He denies chest pain or shortness of breath. He was admitted in the end of April for bowel obstruction and presented in similar fashion at that time. 06/22: Seen and examined. Currently not on vasopressors. Patient had a large emesis and "feels better" now. Abdomen distended. 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 Pacemaker was "checked" prior to arriving here from [place] within the past several months. 06/23: Afebrile. Chief complaint of abdominal pain bilateral lower quadrants infraumbilical. One bowel movement documented however patient denies.. Very rare flatus. Plan for CT angiogram of the abdomen today 06/24: History status post exploratory lap, partial colectomy with takedown from the splenic flexure creation of colostomy secondary to perforated viscus, perforation at site of splenic flexure with lysis of adhesions from stomach, small bowel and splenic flexure adhered to colon.. Patient received 4500 cc crystalloid. EBL 150. 500 cc urine output. 100 cc NG tube. Patient was extubated overnight with central line placed. Currently on noninvasive ventilation remains acidotic. Will check chest x-ray this AM monitor volume status along with CVP. Pain appears controlled. 06/25: Resting comfortably in bed. Complaining of "tremors". Afebrile. Positive stool from ostomy 1 residual bowel movement overnight. PECOS drain still not sealing. 06/26: less comfortable this morning on my evaluation. tachypneic and severely dyspneic. CXR with evidence of severe volume overload. 5L up from admission. patient endorses severe SOB and orthopnea. no chest pain. ROS otherwise negative. 06/27: new-onset afib RVR this AM, HR in 160s. recheck labs, low K, low Mg. still volume overloaded on clinical exam. +jvd. on HF NC still, 50% fio2. good diuresis yesterday. suspect new-onset afib RVR is combination of volume overload and electrolyte abn. patient still complains of dyspnea. no CP. no other changes. 06/28: Worsening respiratory distress, now with refractory hypoxemia despite NRBM. He is too exhausted to continue, perhaps exacerbated by new a-fib and increased lung venous congestion. Will require intubation and mechanical ventilation. 06/29: clinically improving. hypoxia improving. CXR with persistent patchy infiltrates concerning for ARDS or TRALI. afib RVR yesterday, controlled with electrolyte replacement and metoprolol. still high PEEP requirements. Subjective 06/30: clinically continues to improve. tolerating CPAP. if passes, will pursue extubation. ostomy now with improving output, ROBF. 07/01: Improved gas exchange. CXR clearing. Breathing comfortably. 07/02: Alert, conversant, breathing comfortably. Abdomen benign. Objective Vital Signs Date Time Temp Pulse Resp B/P (MAP) Pulse Ox O2 Delivery O2 Flow Rate FiO2 07/02/17 08:00 98.9 88 20 128/62 (84) 95 07/01/17 20:28 Nasal Cannula 2.00 06/30/17 16:00 40 Intake and Output 07/02/17 07/02/17 07/03/17 08:00 16:00 00:00 Intake Total 590 ml Output Total 1400 ml Balance -810 ml Result Diagram: 07/02/17 0715 07/02/17 0715 Imaging Last Impressions Chest X-Ray 06/25/17 0600 Signed Impressions: Service Date/Time: May 05:34 - CONCLUSION: Worsening consolidation likely related to worsening edema. Forrest Doshi MD Abdomen/Pelvis CT 06/23/17 0000 Signed Impressions: Service Date/Time: Friday, June 23, 2017 11:40 - CONCLUSION: Pneumoperitoneum worrisome for perforation of hollow viscus. No acute vascular findings. Forrest Green MD Abdomen X-Ray 06/23/17 0000 Signed Impressions: Service Date/Time: Friday, June 23, 2017 10:13 - CONCLUSION: 1. Findings consistent with improving partial small bowel obstruction. Maynor Shepard MD Objective Remarks GENERAL: 66-year-old male, lying in bed, intubated, sedated SKIN: Warm and dry. Well perfused HEAD: Atraumatic. Normocephalic. EYES: Pupils equal, round, reactive. NECK: Trachea midline. Airway widely patent. CARDIOVASCULAR: normal rate, regular rhythm. sinus this AM. RESPIRATORY: Clear, breathing with ease, no adventitious sounds. GASTROINTESTINAL: Abdomen midline incision is clean dry and intact. Right lower quadrant ostomy is pink with some brown stool noted. MUSCULOSKELETAL: Extremities with 1+ lower extremity bilateral edema. No obvious deformities. NEUROLOGICAL: RASS 1. follows commands. Conversant. Moves 4 limbs to command. Date of Insertion: Jun 23, 2017 Line: Central Venous Catheter Side: Right Location: Subclavian A/P Assessment and Plan Assessment: 66yM s/p colonic perforation and intra-abdominal contamination, complicated by hypoxic respiratory failure requiring intubation. Clinically appears to be lung injury, ARDS vs. TRALI. continue negative fluid balance and supportive care. extubated 06/30. Neuro/Psych: Acute toxic metabolic encephalopathy secondary to sepsis Dementia disorder NOS Depression NOS Peripheral neuropathy Currently holding donepezil 5 mg at night for dementia Acetaminophen (Ofirmev) IV 1 g every 8 hours when necessary for fever Morphine sulfate 2-4 mg every 2 hours as needed for pain management Continue Fluoxetine 40 mill grams daily Holding Gabapentin 100 mg 3 times a day per family request due to tremors propofol and fentanyl for goal RASS -2. CV: History of third-degree heart block - dual chambered pacemaker placed 04/11 new-onset afib RVR 06/27 History of Hypertension Lactic acidosis - resolved History of Atrial fibrillation Holding carvedilol 3.125 mg twice a day lisinopril 2.5 mg daily light of hypotension Cardiology - Dr. Dunham has seen Currently on TPN goal 70 cc now with lipids. aggressive K and Mg replacement with ongoing diuresis. may require vasopressors for hypotension. Resp: Acute hypoxic and hypercarbic respiratory failure COPD Right upper lobe calcified granuloma Acute Pulmonary Edema - improving. ARDS vs. TRALI Incentive spirometry while awake Currently on albuterol/ipratropium aerosols every 4 hours with albuterol aerosols every 2 hours when necessary dyspnea 3% hypertonic saline aerosols every 4 hours 5 days for aerosolized mucolytic GI: Postop day #7 Exploratory Laparotomy, partial colectomy with takedown splenic flexure and colostomy placement secondary to perforated viscus, perforation at site of splenic flexure with lysis of adhesions from stomach, small bowel and spleen Dr. Soares Admission diagnosis Large bowel obstruction History of internal/external hemorrhoids UC Sigmoid/descending colonic ulcers Liver cysts Hypoalbuminemia Abdominal ascites Hypokalemia Hypomagnesemia Hypernatremia CT abdomen/pelvis on admission revealed dilatation the small bowel. Ascending and transverse colon. Transition point the distal transverse colon. Collapsed descending colon. Cecum thickening. CT angiogram 06/23 revealed perforated viscus/pneumoperitoneum Last admission status post colonoscopy 2. Noted 05/27 unable to transverse sigmoid colon due to stricture. Unable to transverse transverse colon due to stricture 06/03. Sigmoid ulcers. C. difficile positive. home regimen: mesalamine 800 mg 3 times a day prednisone 20 mg daily GI/general surgery consult. Dr. Soares Home medication famotidine 20 mg twice a day for GI prophylaxis. Currently IV 06/24 - TPN at 70 cc an hour with 20% lipids daily start trickle TF if no extubation. wean steroids to hydrocortisone 50mg daily. home dose is prednisone 20mg daily. : Laguna catheter if indicated for accurate I's and O's in a critically ill patient Endo: IDDM Will continue sliding scale insulin Novulin R every 4 hours high with Accu- Cheks to maintain euglycemia Continue 30 units insulin to TPN and insulin detemir 25 units twice a day today 06/25. Renal: Chronic kidney disease stage II 1.1 left renal cyst/tiny right infrarenal cyst Acute kidney disease (on CKD 2) slowly improving. Monitor urine output Accurate I's and O's Heme: Normocytic anemia Thrombocytopenia Leukocytosis Monitor CBC daily. Follow trends Previous admission with thrombocytopenia likely secondary infection/DIC. Transfused 1 unit PRBCs 06/25 ID: History of C. difficile Funguria - asx He was originally on metronidazole 500 mg every 8 hours and vancomycin 125 mg by mouth every 6 hours Infectious disease following. Currently on piperacillin/tazobactam 4.5 g IV every 6 hours Appears to being treated with C. difficile. C. difficile negative this admission Blood cultures 2, no growth today. Culture 06/22 - C. albicans FEN: Hypokalemia Hypomagnesemia Hypocalcemia Replacing electrolytes as clinically indicated MSK: Osteoarthritis Holding calcium carbonate/cholecalciferol 500 mg last 400 units 1 tablet twice a day. Resume when clinically indicated PT evaluate and treat Access -Right subclavian CVL placed 06/23 day #8. keep today for TPN. Probably d/c if PO is tolerated. Prophylaxis - GI -famotidine - DVT - SCD/lovenox Overall impression: Improved respiratory function. Tolerating sips PO. Taper off TPN when OK with surgery service. transfer. Michael Cornelius MD Jul 02, 2017 08:45
[2017-07-02] MEDS: MORPHINE SULFATE 2 MG/ML INJ IV PUSH PRN (12:31)
--- NOTE | 2017-07-02 15:19 | PD.WCN.NOT ---
Wound Consult Description: Consult for new colostomy per MARCUS Torres Communicated with: DIPTI Gaona Recommendation: Ostomy Care: Empty ostomy pouch of effluent when 1/3-1/2 full Change wafer every 3-5 days and PRN before leaks occur using a cut to fit appliance for stoma size 2" WOUND CARE: 1.Please cleanse wound to sacrum with normal saline or wound cleaner signs and pat dry. Apply Optifoam gentle border over wound. Change dressing every 3 days or PRN if saturated or dislodged.Please apply skin prep to periwound before applying dressing. 2.Reposition patient every 2 hours and PRN to offload pressure from bony prominences. Additional Information: Patient seen on [address] [place] [address] for ostomy assessment and teaching. Ostomy Type: Colostomy Surgeon: Michael Soares MD Date of Surgery: Jun 23, 2017 Educated patient on: The need to check on the pouch often to avoid leaks and spontaneous removal of wafer. Call for assistance when pouch becomes heavy or feels full Additional information Patient seen on [address] [place] [address] for ostomy assessment and teaching. Stoma is 2" pink, round, edematous, moist, moderately protruding, lumen noted in center of stoma and functioning with 350ml dark green liquid effluent noted in pouch that was emptied by video games storywriter and left in bathroom for I&O's. DIPTI Gaona informed of the need to check appliance every 2-3 hours to avoid the appliance lifting off patient. Coloplast appliance that was placed by video games storywriter is still intact without leaks noted. Marimar Palm [facility] Jul 02, 2017 15:19
[2017-07-02] MEDS: ENOXAPARIN SODIUM 40 MG/0.4 ML SYRINGE SQ SCH (16:56)
--- NOTE | 2017-07-02 17:21 | HHI.PR ---
Subjective Subjective Notes no acute issues, no fevers tolerating clears wbc increasing, good ostomy output Objective Vitals/I&O Vital Signs Date Time Temp Pulse Resp B/P (MAP) Pulse Ox O2 Delivery O2 Flow Rate FiO2 07/02/17 17:16 96 Nasal Cannula 2.00 07/02/17 12:00 98.0 85 51 133/65 (87) 06/30/17 16:00 40 Labs Laboratory Tests Test 07/02/17 07:15 White Blood Count 16.5 Red Blood Count 2.95 Hemoglobin 8.1 Hematocrit 24.6 Mean Corpuscular Volume 83.3 Mean Corpuscular Hemoglobin 27.3 Mean Corpuscular Hemoglobin Concent 32.8 Red Cell Distribution Width 18.8 Platelet Count 131 Mean Platelet Volume 10.4 Blood Urea Nitrogen 26 Creatinine 0.63 Random Glucose 113 Calcium Level 7.9 Sodium Level 143 Potassium Level 3.5 Chloride Level 111 Carbon Dioxide Level 24.9 Anion Gap 7 Estimat Glomerular Filtration Rate 127 Date/Time Source Procedure Growth Status 06/22/17 12:23 Blood Peripheral Aerobic Blood Culture - Final NO GROWTH IN 5 DAYS Complete 06/22/17 12:23 Blood Peripheral Anaerobic Blood Culture - Final NO GROWTH IN 5 DAYS Complete 06/28/17 06:04 Sputum Endotracheal Gram Stain - Final Complete 06/28/17 06:04 Sputum Endotracheal Sputum Culture - Final RARE GROWTH NORMAL RESPIRATORY EUFEMIA Complete 06/22/17 04:20 Urine Catheterized Urine Urine Culture - Final Oumou Albicans Complete Abdomen: Other (incision well healing, ostomy pink viable) A/P Assessment and Plan 66 year old male POD9 exlap; TOR; partial colectomy, takedown of splenic flexure , colostomy -Extubated; respiratory status much improved -Clear liquids; advance as tolerated -Continue antibiotics---Zosyn/Flagyl/Diflucan - monitor wbc -Continue TPN, continue to advance diet slowly -Colostomy RN is following patient -Patient needs aggressive PT/OT -Discussed with patient Michael Soares MD Jul 02, 2017 17:21
[2017-07-02] MEDS: [UNRECOGNIZED DRUG - OTHER] IV-CENTRAL SCH ×9 (19:44)
[2017-07-02] MEDS: DONEPEZIL HCL 5 MG TAB PO SCH (19:44)
[2017-07-02] MEDS: MORPHINE SULFATE 4 MG/ML INJ IV PUSH PRN (19:44)
[2017-07-02] MEDS: MAGNESIUM CHLORIDE IV-CENTRAL SCH ×9 (19:44)
[2017-07-02] MEDS: POTASSIUM CHLORIDE IV-CENTRAL SCH ×9 (19:44)
[2017-07-02] MEDS: FAT EMULSION 20% INJ 250 ML (Daily over 8 hours) IV-CENTRAL SCH (19:45)
[2017-07-03] VITALS (7 sets, daily range): BP systolic 119–141; BP diastolic 60–72; PULSE 75–96; RESP 14–20; TEMP 96.9–99.2; O2SAT 90–99
[2017-07-03] MEDS: INSULIN ASPART SUPPLEMENTAL SCALE SQ SCH ×6 (01:00→21:00)
[2017-07-03] MEDS: CHLORHEXIDINE GLUCONATE 2 % 1 PACK (2 CLOTHS) TOP SCH ×2 (04:00→21:16)
[2017-07-03] MEDS: MORPHINE SULFATE 4 MG/ML INJ IV PUSH PRN ×3 (04:15→21:16)
[2017-07-03 04:26] LABS: HEMATOCRIT 22.9 % (39.0-51.0); MEAN CORPUSCULAR HEMOGLOBIN 27.6 PG (27.0-34.0); MEAN CORPUSCULAR HGB CONC 33.3 % (32.0-36.0); PLATELET COUNT 142 TH/MM3 (150-450); RED BLOOD COUNT 2.76 MIL/MM3 (4.50-5.90); RED CELL DISTRIBUTION WIDTH 18.8 % (11.6-17.2); REVIEW FLAG FINAL; WHITE BLOOD COUNT 15.6 TH/MM3 (4.0-11.0)
[2017-07-03 05:00] LABS: BICARBONATE 23.6 MEQ/L (21.0-32.0); POTASSIUM 3.4 MEQ/L (3.5-5.1)
[2017-07-03 05:11] LABS: CALCIUM-PROTEIN CORRECTED 8.5 MG/DL (8.5-10.1)
[2017-07-03] MEDS: POTASSIUM CHLOR 20 MEQ PREMIX 100 ML IV PRN ×2 (07:12→14:56)
[2017-07-03] MEDS: CHLORHEXIDINE 0.12% (ORAL KIT) 15 ML CUP MT SCH ×2 (08:00→20:00)
[2017-07-03] MEDS: SODIUM CHLORIDE 0.9% FLUSH 10 ML FLUSH IV FLUSH SCH ×2 (08:03→21:14)
[2017-07-03] MEDS: ASCORBIC ACID 500 MG TAB PO SCH ×2 (08:04→21:15)
[2017-07-03] MEDS: FAMOTIDINE 20 MG/2 ML VIAL IV PUSH SCH (08:04)
[2017-07-03] MEDS: FLUoxetine HCL 20 MG CAP PO SCH (08:04)
[2017-07-03] MEDS: HYDROCORTISONE SOD SUCCINATE 100 MG VIAL IV PUSH SCH (08:04)
[2017-07-03] MEDS: INSULIN DETEMIR 100 UNITS/ML VIAL SQ SCH ×2 (08:05→21:15)
--- NOTE | 2017-07-03 09:45 | HHI.PR ---
Subjective Subjective Notes no fevers, wbc slowly improving, tolerating liquids Objective Vitals/I&O Vital Signs Date Time Temp Pulse Resp B/P (MAP) Pulse Ox O2 Delivery O2 Flow Rate FiO2 07/03/17 08:00 75 07/03/17 08:00 98.6 15 119/60 (79) 99 07/02/17 21:34 Nasal Cannula 3.00 06/30/17 16:00 40 Labs Laboratory Tests Test 07/03/17 03:50 White Blood Count 15.6 Red Blood Count 2.76 Hemoglobin 7.6 Hematocrit 22.9 Mean Corpuscular Volume 83.0 Mean Corpuscular Hemoglobin 27.6 Mean Corpuscular Hemoglobin Concent 33.3 Red Cell Distribution Width 18.8 Platelet Count 142 Mean Platelet Volume 10.2 Blood Urea Nitrogen 24 Creatinine 0.55 Random Glucose 135 Total Protein 5.1 Calcium Level 7.4 Sodium Level 142 Potassium Level 3.4 Chloride Level 111 Carbon Dioxide Level 23.6 Anion Gap 7 Estimat Glomerular Filtration Rate 149 Protein Corrected Calcium 8.5 Date/Time Source Procedure Growth Status 06/22/17 12:23 Blood Peripheral Aerobic Blood Culture - Final NO GROWTH IN 5 DAYS Complete 06/22/17 12:23 Blood Peripheral Anaerobic Blood Culture - Final NO GROWTH IN 5 DAYS Complete 06/28/17 06:04 Sputum Endotracheal Gram Stain - Final Complete 06/28/17 06:04 Sputum Endotracheal Sputum Culture - Final RARE GROWTH NORMAL RESPIRATORY EUFEMIA Complete 06/22/17 04:20 Urine Catheterized Urine Urine Culture - Final Oumou Albicans Complete Abdomen: Other (incisional tenderness. ostomy pink viable with stool) A/P Assessment and Plan 66 year old male POD10 exlap; TOR; partial colectomy, takedown of splenic flexure, colostomy -Extubated; respiratory status much improved -Clear liquids; advance as tolerated -Continue antibiotics---Zosyn/Flagyl/Diflucan - monitor wbc -Continue TPN, continue to advance diet slowly -Colostomy RN is following patient -Patient needs aggressive PT/OT - Transfer to floor -Discussed with patient Michael Soares MD Jul 03, 2017 09:45
--- NOTE | 2017-07-03 11:02 | PD.WCN.NOT ---
Wound Consult Description: Consult for new colostomy per MARCUS Torres Communicated with: Patient Recommendation: Ostomy Care: Empty ostomy pouch of effluent when 1/3-1/2 full Change wafer every 3-5 days and PRN before leaks occur using a cut to fit appliance for stoma size 2" WOUND CARE: 1.Please cleanse wound to sacrum with normal saline or wound shafting cleaner and pat dry. Apply Optifoam gentle border over wound. Change dressing every 3 days or PRN if saturated or dislodged.Please apply skin prep to periwound before applying dressing. 2.Reposition patient every 2 hours and PRN to offload pressure from bony prominences. Additional Information: *Late entry* Patient seen today for ostomy assessment. Ostomy Type: Colostomy Surgeon: Michael Soares MD Date of Surgery: Jun 23, 2017 Educated patient on: Checking the pouch often. Empty pouch every 2-3 hours and PRN to avoid leaks Change appliance every 3-5 days and PRN before leaks occur Additional information Pouch is noted to be intact with minimal output that was emptied by field underwriter and left in bathroom for I & O's. Marimar Palm [facility] Jul 03, 2017 11:02
--- NOTE | 2017-07-03 11:59 | HHI.CCPN ---
Subjective Remarks/Hospital Course 66-year-old male currently residing at the rehabilitation facility comes in due to fever with low blood pressure, abdominal pain and vomiting. He has history of bowel obstruction in the past. He also was diagnosed with C. difficile. Per patient his abdominal pain never got any better since being in the hospital about a month ago. However, he does say that it has gotten worse recently. He vomited today. He says he continues to have diarrhea. He was found to be febrile. He denies chest pain or shortness of breath. He was admitted in the end of April for bowel obstruction and presented in similar fashion at that time. 06/22: Seen and examined. Currently not on vasopressors. Patient had a large emesis and "feels better" now. Abdomen distended. 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 Pacemaker was "checked" prior to arriving here from [place] within the past several months. 06/23: Afebrile. Chief complaint of abdominal pain bilateral lower quadrants infraumbilical. One bowel movement documented however patient denies.. Very rare flatus. Plan for CT angiogram of the abdomen today 06/24: History status post exploratory lap, partial colectomy with takedown from the splenic flexure creation of colostomy secondary to perforated viscus, perforation at site of splenic flexure with lysis of adhesions from stomach, small bowel and splenic flexure adhered to colon.. Patient received 4500 cc crystalloid. EBL 150. 500 cc urine output. 100 cc NG tube. Patient was extubated overnight with central line placed. Currently on noninvasive ventilation remains acidotic. Will check chest x-ray this AM monitor volume status along with CVP. Pain appears controlled. 06/25: Resting comfortably in bed. Complaining of "tremors". Afebrile. Positive stool from ostomy 1 residual bowel movement overnight. PECOS drain still not sealing. 06/26: less comfortable this morning on my evaluation. tachypneic and severely dyspneic. CXR with evidence of severe volume overload. 5L up from admission. patient endorses severe SOB and orthopnea. no chest pain. ROS otherwise negative. 06/27: new-onset afib RVR this AM, HR in 160s. recheck labs, low K, low Mg. still volume overloaded on clinical exam. +jvd. on HF NC still, 50% fio2. good diuresis yesterday. suspect new-onset afib RVR is combination of volume overload and electrolyte abn. patient still complains of dyspnea. no CP. no other changes. 06/28: Worsening respiratory distress, now with refractory hypoxemia despite NRBM. He is too exhausted to continue, perhaps exacerbated by new a-fib and increased lung venous congestion. Will require intubation and mechanical ventilation. 06/29: clinically improving. hypoxia improving. CXR with persistent patchy infiltrates concerning for ARDS or TRALI. afib RVR yesterday, controlled with electrolyte replacement and metoprolol. still high PEEP requirements. Subjective 06/30: clinically continues to improve. tolerating CPAP. if passes, will pursue extubation. ostomy now with improving output, ROBF. 07/01: Improved gas exchange. CXR clearing. Breathing comfortably. 07/02: Alert, conversant, breathing comfortably. Abdomen benign. 07/03: Doing well, tolerating clear liquid diet, asking for more food. Objective Vital Signs Date Time Temp Pulse Resp B/P (MAP) Pulse Ox O2 Delivery O2 Flow Rate FiO2 07/03/17 08:00 75 07/03/17 08:00 98.6 15 119/60 (79) 99 07/02/17 21:34 Nasal Cannula 3.00 06/30/17 16:00 40 Intake and Output 07/03/17 07/03/17 07/04/17 08:00 16:00 00:00 Intake Total 90 ml Output Total 700 ml Balance -610 ml Result Diagram: 07/03/17 0350 07/03/17 0350 Imaging Last Impressions Chest X-Ray 06/25/17 0600 Signed Impressions: Service Date/Time: May 05:34 - CONCLUSION: Worsening consolidation likely related to worsening edema. Forrest Doshi MD Abdomen/Pelvis CT 06/23/17 0000 Signed Impressions: Service Date/Time: Friday, June 23, 2017 11:40 - CONCLUSION: Pneumoperitoneum worrisome for perforation of hollow viscus. No acute vascular findings. Forrest Green MD Abdomen X-Ray 06/23/17 0000 Signed Impressions: Service Date/Time: Friday, June 23, 2017 10:13 - CONCLUSION: 1. Findings consistent with improving partial small bowel obstruction. Maynor Shepard MD Objective Remarks GENERAL: 66-year-old male, lying in bed, alert comfortably in the bed in no acute distress SKIN: Warm and dry. Well perfused HEAD: Atraumatic. Normocephalic. EYES: Pupils equal, round, reactive. NECK: Trachea midline. Airway widely patent. CARDIOVASCULAR: normal rate, regular rhythm. sinus this AM. RESPIRATORY: Clear, breathing with ease, no adventitious sounds. GASTROINTESTINAL: Abdomen midline incision is clean dry and intact. Right lower quadrant ostomy is pink with some brown stool noted. MUSCULOSKELETAL: Extremities with 1+ lower extremity bilateral edema. No obvious deformities. NEUROLOGICAL: RASS 1. follows commands. Conversant. Moves 4 limbs to command. Date of Insertion: Jun 23, 2017 Line: Central Venous Catheter Side: Right Location: Subclavian A/P Assessment and Plan Assessment: 66yM s/p colonic perforation and intra-abdominal contamination, complicated by hypoxic respiratory failure requiring intubation. Clinically appears to be lung injury, ARDS vs. TRALI. continue negative fluid balance and supportive care. extubated 06/30. Neuro/Psych: Acute toxic metabolic encephalopathy secondary to sepsis Dementia disorder NOS Depression NOS Peripheral neuropathy Currently holding donepezil 5 mg at night for dementia Acetaminophen (Ofirmev) IV 1 g every 8 hours when necessary for fever Morphine sulfate 2-4 mg every 2 hours as needed for pain management Continue Fluoxetine 40 mill grams daily Holding Gabapentin 100 mg 3 times a day per family request due to tremors Neurologically intact, alert awake and following commands CV: History of third-degree heart block - dual chambered pacemaker placed 04/11 new-onset afib RVR 06/27 History of Hypertension Lactic acidosis - resolved History of Atrial fibrillation Holding carvedilol 3.125 mg twice a day lisinopril 2.5 mg daily light of hypotension Cardiology - Dr. Dunham has seen Currently on TPN goal 70 cc now with lipids. aggressive K and Mg replacement with ongoing diuresis. may require vasopressors for hypotension. Resp: Acute hypoxic and hypercarbic respiratory failure COPD Right upper lobe calcified granuloma Acute Pulmonary Edema - improving. ARDS vs. TRALI Incentive spirometry while awake Currently on albuterol/ipratropium aerosols every 4 hours with albuterol aerosols every 2 hours when necessary dyspnea 3% hypertonic saline aerosols every 4 hours 5 days for aerosolized mucolytic GI: Postop day #7 Exploratory Laparotomy, partial colectomy with takedown splenic flexure and colostomy placement secondary to perforated viscus, perforation at site of splenic flexure with lysis of adhesions from stomach, small bowel and spleen Dr. Soares Admission diagnosis Large bowel obstruction History of internal/external hemorrhoids UC Sigmoid/descending colonic ulcers Liver cysts Hypoalbuminemia Abdominal ascites Hypokalemia Hypomagnesemia Hypernatremia CT abdomen/pelvis on admission revealed dilatation the small bowel. Ascending and transverse colon. Transition point the distal transverse colon. Collapsed descending colon. Cecum thickening. CT angiogram 06/23 revealed perforated viscus/pneumoperitoneum Last admission status post colonoscopy 2. Noted 05/27 unable to transverse sigmoid colon due to stricture. Unable to transverse transverse colon due to stricture 06/03. Sigmoid ulcers. C. difficile positive. home regimen: mesalamine 800 mg 3 times a day prednisone 20 mg daily GI/general surgery consult. Dr. Soares Home medication famotidine 20 mg twice a day for GI prophylaxis. Currently IV 06/24 - TPN at 70 cc an hour with 20% lipids daily start trickle TF if no extubation. wean steroids to hydrocortisone 50mg daily. home dose is prednisone 20mg daily. : Laguna catheter if indicated for accurate I's and O's in a critically ill patient Endo: IDDM Will continue sliding scale insulin Novulin R every 4 hours high with Accu- Cheks to maintain euglycemia Continue 30 units insulin to TPN and insulin detemir 25 units twice a day today 06/25. Renal: Chronic kidney disease stage II 1.1 left renal cyst/tiny right infrarenal cyst Acute kidney disease (on CKD 2) slowly improving. Monitor urine output Accurate I's and O's Heme: Normocytic anemia Thrombocytopenia Leukocytosis Monitor CBC daily. Follow trends Previous admission with thrombocytopenia likely secondary infection/DIC. Transfused 1 unit PRBCs 06/25, since then stable ID: History of C. difficile Funguria - asx He was originally on metronidazole 500 mg every 8 hours and vancomycin 125 mg by mouth every 6 hours Infectious disease following. Currently on piperacillin/tazobactam 4.5 g IV every 6 hours Appears to being treated with C. difficile. C. difficile negative this admission Blood cultures 2, no growth today. Culture 06/22 - C. albicans FEN: Hypokalemia Hypomagnesemia Hypocalcemia Replacing electrolytes as clinically indicated MSK: Osteoarthritis Holding calcium carbonate/cholecalciferol 500 mg last 400 units 1 tablet twice a day. Resume when clinically indicated PT evaluate and treat Access -Right subclavian CVL placed 06/23 day #8. keep today for TPN. Probably d/c if PO is tolerated. Prophylaxis - GI -famotidine - DVT - SCD/lovenox Overall impression: Improved respiratory function. Tolerating PO. Taper off TPN Transfer to [facility] floor and hospitalist service. Level II Logan Mace MD Jul 03, 2017 11:59
[2017-07-03] MEDS: ENOXAPARIN SODIUM 40 MG/0.4 ML SYRINGE SQ SCH (17:50)
[2017-07-03] MEDS ORDERED: NALOXONE HCL 0.4 MG/ML AMP IV PUSH PRN (18:00)
[2017-07-03] MEDS ORDERED: ACETAMINOPHEN 325 MG TAB PO PRN ×2 (18:00)
[2017-07-03] MEDS ORDERED: ACETAMINOPHEN/HYDROcodone 325 MG/5 MG TAB PO PRN (18:00)
[2017-07-03] MEDS ORDERED: MORPHINE SULFATE 4 MG/ML INJ IV PUSH PRN (18:00)
--- NOTE | 2017-07-03 18:17 | HHI.PR ---
Subjective Remarks NOT SEEN Objective Vitals Vital Signs Date Time Temp Pulse Resp B/P (MAP) Pulse Ox O2 Delivery O2 Flow Rate FiO2 07/03/17 16:00 96.9 77 20 133/72 (92) 96 07/03/17 12:00 98.9 86 14 133/67 (89) 96 07/03/17 12:00 89 07/03/17 08:00 75 07/03/17 08:00 98.6 75 15 119/60 (79) 99 07/03/17 04:00 96 07/03/17 04:00 99.1 96 16 119/68 (85) 93 07/03/17 02:00 86 07/03/17 00:00 99.2 88 20 141/66 (91) 93 07/03/17 00:00 88 07/02/17 22:00 88 07/02/17 21:34 93 Nasal Cannula 3.00 07/02/17 20:00 81 07/02/17 20:00 98.7 80 17 114/59 (77) 94 I/O 07/02/17 07/02/17 07/02/17 07/03/17 07/03/17 07/03/17 06:59 14:59 22:59 06:59 14:59 22:59 Intake Total 590 ml 200 ml 90 ml 35 ml Output Total 1400 ml 1400 ml 700 ml Balance -810 ml -1200 ml -610 ml 35 ml Intake Oral 240 ml 200 ml 90 ml IV Total 350 ml 35 ml Output Urine Total 1100 ml 950 ml 450 ml Stool Total 300 ml 450 ml 250 ml Result Diagram: 07/03/17 0350 07/03/17 0350 Imaging Last Impressions Chest X-Ray 06/28/17 0000 Signed Impressions: Service Date/Time: Wednesday, June 28, 2017 06:05 - CONCLUSION: 1. Endotracheal tube and nasogastric tube in appropriate position. 2. Mild diffuse bilateral airspace consolidation, improved since the prior exam. Forrest Santos MD Upper Extremity Ultrasound 06/25/17 0000 Signed Impressions: Service Date/Time: May 10:22 - CONCLUSION: Normal examination. Forrest Green MD Abdomen/Pelvis CT 06/23/17 0000 Signed Impressions: Service Date/Time: Friday, June 23, 2017 11:40 - CONCLUSION: Pneumoperitoneum worrisome for perforation of hollow viscus. No acute vascular findings. Forrest Green MD Abdomen X-Ray 06/23/17 0000 Signed Impressions: Service Date/Time: Friday, June 23, 2017 10:13 - CONCLUSION: 1. Findings consistent with improving partial small bowel obstruction. Maynor Shepard MD Objective Remarks GENERAL: 66-year-old male SKIN: Warm and dry. Well perfused HEAD: Atraumatic. Normocephalic. EYES: Pupils equal, round, reactive. NECK: Trachea midline. Airway widely patent. CARDIOVASCULAR: normal rate, regular rhythm. sinus this AM. RESPIRATORY: Clear, breathing with ease, no adventitious sounds. GASTROINTESTINAL: Abdomen midline incision is clean dry and intact. Right lower quadrant ostomy is pink with some brown stool noted. MUSCULOSKELETAL: Extremities with 1+ lower extremity bilateral edema. No obvious deformities. NEUROLOGICAL:Awake. follows commands. Conversant. Moves 4 limbs Procedures Central line placement Intubation Exploratory Laparotomy, partial colectomy with takedown splenic flexure and colostomy placement secondary to perforated viscus, perforation at site of splenic flexure with lysis of adhesions from stomach, small bowel and spleen Date of Insertion: Jun 23, 2017 Line: Central Venous Catheter Side: Right Location: Subclavian A/P Problem List: (1) Bowel obstruction ICD Code: K56.609 - Unspecified intestinal obstruction, unspecified as to partial versus complete obstruction Status: Acute Assessment and Plan 66yM s/p colonic perforation and intra-abdominal contamination, complicated by hypoxic respiratory failure requiring intubation. Clinically appears to be lung injury, ARDS vs. TRALI. Continue negative fluid balance and supportive care. Extubated 06/30. Neuro/Psych: Acute toxic metabolic encephalopathy secondary to sepsis Dementia disorder NOS Depression NOS Peripheral neuropathy Ct donepezil 5 mg at night for dementia Start Lortab and ct IV Morphine sulfate as needed if NPO for pain management Continue Fluoxetine 40 mill grams daily Holding Gabapentin 100 mg 3 times a day per family request due to tremors CV: History of third-degree heart block - dual chambered pacemaker placed 04/11 new-onset afib RVR 06/27 History of Hypertension Lactic acidosis - resolved Holding carvedilol 3.125 mg twice a day lisinopril 2.5 mg daily light of hypotension Cardiology - Dr. Dunham has seen [id number] score of 3 needs to be on anticoagulation when ok by GS Resp: Acute hypoxic and hypercarbic respiratory failure COPD Right upper lobe calcified granuloma Acute Pulmonary Edema - improving. ARDS vs. TRALI Incentive spirometry while awake Currently on albuterol/ipratropium aerosols every 4 hours with albuterol aerosols every 2 hours when necessary dyspnea GI: Postop Exploratory Laparotomy, partial colectomy with takedown splenic flexure and colostomy placement secondary to perforated viscus, perforation at site of splenic flexure with lysis of adhesions from stomach, small bowel and spleen Dr. Soares Admission diagnosis Large bowel obstruction History of internal/external hemorrhoids UC Sigmoid/descending colonic ulcers Liver cysts Hypoalbuminemia Abdominal ascites Hypokalemia Hypomagnesemia Hypernatremia CT abdomen/pelvis on admission revealed dilatation the small bowel. Ascending and transverse colon. Transition point the distal transverse colon. Collapsed descending colon. Cecum thickening. CT angiogram 06/23 revealed perforated viscus/pneumoperitoneum Last admission status post colonoscopy 2. Noted 05/27 unable to transverse sigmoid colon due to stricture. Unable to transverse transverse colon due to stricture 06/03. Sigmoid ulcers. C. difficile positive. home regimen: mesalamine 800 mg 3 times a day prednisone 20 mg daily GI/general surgery consult. Dr. Soares Home medication famotidine 20 mg twice a day for GI prophylaxis. 06/24 - TPN at 70 cc an hour with 20% lipids daily wean if diet advanced and tolerated wean steroids, switch IV hydrocortisone 50mg daily to home prednisone to 10mg daily. : Dc Laguna catheter Endo: IDDM Will continue sliding scale insulin with Accu-Cheks to maintain euglycemia Continue 15 units insulin to TPN and insulin detemir 5 units twice a day Renal: Chronic kidney disease stage II 1.1 left renal cyst/tiny right infrarenal cyst Monitor urine output Accurate I's and O's Heme: Normocytic anemia Thrombocytopenia Leukocytosis Monitor CBC. Follow trends Previous admission with thrombocytopenia likely secondary infection/DIC. Transfused 1 unit PRBCs 06/25 ID: History of C. difficile Funguria - asx S/p metronidazole 500 mg every 8 hours and vancomycin 125 mg by mouth every 6 hours Was also on piperacillin/tazobactam 4.5 g IV every 6 hours Appears to being treated with C. difficile. C. difficile negative this admission Blood cultures 2, no growth Culture 06/22 - C. albicans Off antimicrobials , ID has signed off FEN: Hypokalemia Hypomagnesemia Hypocalcemia Replacing electrolytes as clinically indicated MSK: Osteoarthritis Holding calcium carbonate/cholecalciferol 500 mg last 400 units 1 tablet twice a day. Resume when clinically indicated PT ff Access -Right subclavian CVL placed 06/23 day #8. keep for TPN. Probably d/c if PO tolerated. Prophylaxis - GI -famotidine - DVT - SCD/lovenox Discharge Planning Does not meet LTAC criteria. Dc to [facility] when cleared by Problem Qualifiers (1) Bowel obstruction: Qualified Codes: K56.601 - Complete intestinal obstruction, unspecified as to cause Abando,Brandon Alvarado MD Jul 03, 2017 18:17
[2017-07-03] MEDS: MAGNESIUM CHLORIDE IV-CENTRAL SCH ×9 (21:14)
[2017-07-03] MEDS: POTASSIUM CHLORIDE IV-CENTRAL SCH ×9 (21:14)
[2017-07-03] MEDS: [UNRECOGNIZED DRUG - OTHER] IV-CENTRAL SCH ×9 (21:14)
[2017-07-03] MEDS: FAT EMULSION 20% INJ 250 ML (Daily over 8 hours) IV-CENTRAL SCH (21:14)
[2017-07-03] MEDS: DONEPEZIL HCL 5 MG TAB PO SCH (21:14)
[2017-07-03] MEDS: FAMOTIDINE 20 MG TAB PO SCH (21:15)
[2017-07-03] MEDS: ONDANSETRON HCL 4 MG/2 ML VIAL IVP PRN (21:28)
[2017-07-04 01:25] VITALS: BP 138/67; PULSE 85; RESP 20; TEMP 97.9; O2SAT 92
[2017-07-04] MEDS: MORPHINE SULFATE 4 MG/ML INJ IV PUSH PRN (04:52)
[2017-07-04 06:31] LABS: AUTOMATED NEUTROPHIL # 11.4 TH/MM3 (1.8-7.7); BASOPHIL # 0.1 TH/MM3 (0-0.2); BASOPHIL % 0.4 % (0.0-2.0); EOSINOPHIL # 0.1 TH/MM3 (0-0.4); EOSINOPHIL % 0.9 % (0.0-4.0); HEMATOCRIT 28.2 % (39.0-51.0); HEMO FLAGS DIFF FINAL; LYMPH % 9.1 % (9.0-44.0); LYMPHOCYTE # 1.2 TH/MM3 (1.0-4.8); MEAN CELL VOLUME 85.1 FL (80.0-100.0); MEAN CORPUSCULAR HEMOGLOBIN 27.3 PG (27.0-34.0); MONO % 3.5 % (0.0-8.0); NEUT % 86.1 % (16.0-70.0); PLATELET COUNT 186 TH/MM3 (150-450); RED BLOOD COUNT 3.31 MIL/MM3 (4.50-5.90); WHITE BLOOD COUNT 13.3 TH/MM3 (4.0-11.0)
[2017-07-04 06:52] LABS: ANION GAP 7 MEQ/L (5-15); AST (GOT) 37 U/L (15-37); BICARBONATE 22.8 MEQ/L (21.0-32.0); BLOOD UREA NITROGEN 22 MG/DL (7-18); CHLORIDE 110 MEQ/L (98-107); GLOMERULAR FILTRATION RATE 129 ML/MIN (>89); MAGNESIUM 1.8 MG/DL (1.5-2.5); SODIUM (NA) 140 MEQ/L (136-145)
[2017-07-04 06:53] LABS: ALT (GPT) 46 U/L (12-78)
[2017-07-04 06:55] LABS: ALKALINE PHOSPHATASE 269 U/L (45-117); TOTAL BILIRUBIN ADULT 0.3 MG/DL (0.2-1.0)
[2017-07-04 08:00] VITALS: BP 136/58; PULSE 83; RESP 16; TEMP 97.9; O2SAT 96
[2017-07-04] MEDS: INSULIN ASPART SUPPLEMENTAL SCALE SQ SCH ×4 (08:00→21:00)
[2017-07-04] MEDS: CHLORHEXIDINE 0.12% (ORAL KIT) 15 ML CUP MT SCH ×2 (08:00→20:00)
[2017-07-04] MEDS: SODIUM CHLORIDE 0.9% FLUSH 10 ML FLUSH IV FLUSH SCH ×2 (09:00→20:07)
[2017-07-04] MEDS: FLUoxetine HCL 20 MG CAP PO SCH (09:16)
[2017-07-04] MEDS: FAMOTIDINE 20 MG TAB PO SCH ×2 (09:16→20:07)
[2017-07-04] MEDS: predniSONE 10 MG TAB PO SCH (09:16)
[2017-07-04] MEDS: ASCORBIC ACID 500 MG TAB PO SCH ×2 (09:16→20:07)
[2017-07-04] MEDS: INSULIN DETEMIR 100 UNITS/ML VIAL SQ SCH ×2 (09:17→20:08)
[2017-07-04] MEDS: ACETAMINOPHEN/HYDROcodone 325 MG/7.5 MG TAB PO PRN ×2 (09:27→18:36)
--- NOTE | 2017-07-04 11:24 | HHI.PR ---
cc: Conner Roblero MD Subjective Subjective Notes DAILY PROGRESS NOTE FOR SURGICAL ATTENDING, DR. CONNER ROBLERO Feeling better Once regular food Got up yesterday Objective Vitals/I&O Vital Signs Date Time Temp Pulse Resp B/P (MAP) Pulse Ox O2 Delivery O2 Flow Rate FiO2 07/04/17 08:00 97.9 83 16 136/58 (84) 96 07/02/17 21:34 Nasal Cannula 3.00 06/30/17 16:00 40 Labs Laboratory Tests Test 07/04/17 03:58 White Blood Count 13.3 Red Blood Count 3.31 Hemoglobin 9.0 Hematocrit 28.2 Mean Corpuscular Volume 85.1 Mean Corpuscular Hemoglobin 27.3 Mean Corpuscular Hemoglobin Concent 32.0 Red Cell Distribution Width 19.0 Platelet Count 186 Mean Platelet Volume 10.4 Neutrophils (%) (Auto) 86.1 Lymphocytes (%) (Auto) 9.1 Monocytes (%) (Auto) 3.5 Eosinophils (%) (Auto) 0.9 Basophils (%) (Auto) 0.4 Neutrophils # (Auto) 11.4 Lymphocytes # (Auto) 1.2 Monocytes # (Auto) 0.5 Eosinophils # (Auto) 0.1 Basophils # (Auto) 0.1 CBC Comment DIFF FINAL Differential Comment Blood Urea Nitrogen 22 Creatinine 0.62 Random Glucose 130 Total Protein 6.0 Albumin 1.1 Calcium Level 7.8 Phosphorus Level 2.5 Magnesium Level 1.8 Alkaline Phosphatase 269 Aspartate Amino Transf (AST/SGOT) 37 Alanine Aminotransferase (ALT/SGPT) 46 Total Bilirubin 0.3 Sodium Level 140 Potassium Level 4.0 Chloride Level 110 Carbon Dioxide Level 22.8 Anion Gap 7 Estimat Glomerular Filtration Rate 129 Date/Time Source Procedure Growth Status 06/22/17 12:23 Blood Peripheral Aerobic Blood Culture - Final NO GROWTH IN 5 DAYS Complete 06/22/17 12:23 Blood Peripheral Anaerobic Blood Culture - Final NO GROWTH IN 5 DAYS Complete 06/28/17 06:04 Sputum Endotracheal Gram Stain - Final Complete 06/28/17 06:04 Sputum Endotracheal Sputum Culture - Final RARE GROWTH NORMAL RESPIRATORY EUFEMIA Complete 06/22/17 04:20 Urine Catheterized Urine Urine Culture - Final Oumou Albicans Complete Radiology Last Impressions Chest X-Ray 06/28/17 0000 Signed Impressions: Service Date/Time: Wednesday, June 28, 2017 06:05 - CONCLUSION: 1. Endotracheal tube and nasogastric tube in appropriate position. 2. Mild diffuse bilateral airspace consolidation, improved since the prior exam. Forrest Santos MD Upper Extremity Ultrasound 06/25/17 0000 Signed Impressions: Service Date/Time: May 10:22 - CONCLUSION: Normal examination. Forrest Green MD Abdomen/Pelvis CT 06/23/17 0000 Signed Impressions: Service Date/Time: Friday, June 23, 2017 11:40 - CONCLUSION: Pneumoperitoneum worrisome for perforation of hollow viscus. No acute vascular findings. Forrest Green MD Abdomen X-Ray 06/23/17 0000 Signed Impressions: Service Date/Time: Friday, June 23, 2017 10:13 - CONCLUSION: 1. Findings consistent with improving partial small bowel obstruction. Maynor Bozorgmanesh, MD Abdomen: Non-distended, Other (ileostomy with good output), Post-op tenderness , BS normal Extremities: Perfused, SCD's on Wound Wound : Wound Location: Abdomen Appearance: Clean & Dry Dressing: Dry A/P Assessment and Plan 66-year-old gentleman status post partial colectomy ileostomy Improving wants to eat Increase diet Weaning TPN Wean oxygen Discussed with Dr. Hanson Attending Statement NOTE FOR SURGICAL ATTENDING, DR. CONNER ROBLERO I attest that I had a [id number] encounter with the patient on the same day, and personally performed and documented my assessment and findings in the medical record. The following services were provided during this hospital visit: Chart data review, vital sign assessments/reviewing monitor data Review of consultations notes if present. Medication orders/review and/or management Ordering and/or reviewing lab tests Ordering and/or interpreting/reviewing x-rays and/or diagnostic studies Care of the patient and discussion of the patient with the care team Documentation time To help prompt me to consider important information that might be impacting today's encounter and assessment, information from prior notes written by myself or my colleagues may have been "brought forward/copy and pasted" into today's note. Conner Roblero MD Jul 04, 2017 11:24
--- NOTE | 2017-07-04 11:28 | HHI.PR ---
Subjective Remarks Follow-up colonic perforation. Consulted by critical care medicine for transfer of care and medical management. Case discussed with RN and Gen. surgery. Patient denies any pain and wants better food. Objective Vitals Vital Signs Date Time Temp Pulse Resp B/P (MAP) Pulse Ox O2 Delivery O2 Flow Rate FiO2 07/04/17 08:00 97.9 83 16 136/58 (84) 96 07/04/17 01:25 97.9 85 20 138/67 (90) 92 07/03/17 21:16 97.7 84 20 125/60 (81) 90 07/03/17 16:00 96.9 77 20 133/72 (92) 96 07/03/17 12:00 98.9 86 14 133/67 (89) 96 07/03/17 12:00 89 I/O 07/03/17 07/03/17 07/03/17 07/04/17 07/04/17 07/04/17 07:00 15:00 23:00 07:00 15:00 23:00 Intake Total 90 ml 35 ml 1240 ml 730 ml Output Total 700 ml 800 ml Balance -610 ml 35 ml 1240 ml -70 ml Intake Oral 90 ml 240 ml 480 ml IV Total 35 ml 1000 ml 250 ml Output Urine Total 450 ml 550 ml Stool Total 250 ml 250 ml Result Diagram: 07/04/17 0358 07/04/17 0358 Imaging Last Impressions Chest X-Ray 06/28/17 0000 Signed Impressions: Service Date/Time: Wednesday, June 28, 2017 06:05 - CONCLUSION: 1. Endotracheal tube and nasogastric tube in appropriate position. 2. Mild diffuse bilateral airspace consolidation, improved since the prior exam. Forrest Santos MD Upper Extremity Ultrasound 06/25/17 0000 Signed Impressions: Service Date/Time: May 10:22 - CONCLUSION: Normal examination. Forrest Green MD Abdomen/Pelvis CT 06/23/17 0000 Signed Impressions: Service Date/Time: Friday, June 23, 2017 11:40 - CONCLUSION: Pneumoperitoneum worrisome for perforation of hollow viscus. No acute vascular findings. Forrest Green MD Abdomen X-Ray 06/23/17 0000 Signed Impressions: Service Date/Time: Merna, June 23, 2017 10:13 - CONCLUSION: 1. Findings consistent with improving partial small bowel obstruction. Maynor Shepard MD Objective Remarks GENERAL: 66-year-old male, well-developed and well-nourished SKIN: Warm and dry. Well perfused CARDIOVASCULAR: normal rate, regular rhythm. sinus this AM. RESPIRATORY: Clear, breathing with ease, no adventitious sounds. GASTROINTESTINAL: Abdomen midline incision is clean dry and intact. Right lower quadrant ostomy is pink with some brown stool noted. MUSCULOSKELETAL: Extremities with no edema. No obvious deformities. NEUROLOGICAL:Awake and alert moving all extremities nonfocal Procedures Central line placement Intubation Exploratory Laparotomy, partial colectomy with takedown splenic flexure and colostomy placement secondary to perforated viscus, perforation at site of splenic flexure with lysis of adhesions from stomach, small bowel and spleen Vascular Central Line Catheter: Yes Assessment to: Continue Date of Insertion: Jun 23, 2017 Line: Central Venous Catheter Side: Right Location: Subclavian A/P Problem List: (1) Bowel obstruction ICD Code: K56.609 - Unspecified intestinal obstruction, unspecified as to partial versus complete obstruction Status: Acute Assessment and Plan 66yM s/p colonic perforation and intra-abdominal contamination, complicated by hypoxic respiratory failure requiring intubation. Clinically appears to be lung injury, ARDS vs. TRALI. Continue negative fluid balance and supportive care. Extubated 06/30. Neuro/Psych: Acute toxic metabolic encephalopathy secondary to sepsis. 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 Dunham has seen [id number] score of 3 needs to be on anticoagulation when ok by GS Resp: Acute hypoxic and hypercarbic respiratory failure. Resolved COPD Right upper lobe calcified granuloma Acute Pulmonary Edema - improving. ARDS vs. TRALI Incentive spirometry while awake Currently on albuterol/ipratropium aerosols every 4 hours with albuterol aerosols every 2 hours when necessary dyspnea Wean oxygen keep saturation at least 92% GI: Postop Exploratory Laparotomy, partial colectomy with takedown splenic flexure and colostomy placement secondary to perforated viscus, perforation at site of splenic flexure with lysis of adhesions from stomach, small bowel and spleen Dr. Soares Admission diagnosis Large bowel obstruction History of internal/external hemorrhoids UC Sigmoid/descending colonic ulcers Liver cysts Hypoalbuminemia Abdominal ascites Hypokalemia Hypomagnesemia Hypernatremia CT abdomen/pelvis on admission revealed dilatation the small bowel. Ascending and transverse colon. Transition point the distal transverse colon. Collapsed descending colon. Cecum thickening. CT angiogram 06/23 revealed perforated viscus/pneumoperitoneum Last admission status post colonoscopy 2. Noted 05/27 unable to transverse sigmoid colon due to stricture. Unable to transverse transverse colon due to stricture 06/03. Sigmoid ulcers. C. difficile positive. home regimen: mesalamine 800 mg 3 times a day prednisone 20 mg daily GI/general surgery consult. Dr. Soares Home medication famotidine 20 mg twice a day for GI prophylaxis. 06/24 - TPN at 70 cc an hour with 20% lipids daily wean if diet advanced and tolerated wean steroids, switch IV hydrocortisone 50mg daily to home prednisone to 10mg daily. : Dc [place] catheter Endo: IDDM Will continue sliding scale insulin with Accu-Cheks to maintain euglycemia Continue 15 units insulin to TPN and insulin detemir 5 units twice a day Renal: Chronic kidney disease stage II 1.1 left renal cyst/tiny right infrarenal cyst Monitor urine output Accurate I's and O's Heme: Normocytic anemia Thrombocytopenia Leukocytosis Monitor CBC. Follow trends Previous admission with thrombocytopenia likely secondary infection/DIC. Transfused 1 unit PRBCs 06/25 ID: History of C. difficile Funguria - asx S/p metronidazole 500 mg every 8 hours and vancomycin 125 mg by mouth every 6 hours Was also on piperacillin/tazobactam 4.5 g IV every 6 hours Appears to being treated with C. difficile. C. difficile negative this admission Blood cultures 2, no growth Culture 06/22 - C. albicans Off antimicrobials , ID has signed off FEN: Hypokalemia Hypomagnesemia Hypocalcemia Replacing electrolytes as clinically indicated MSK: Osteoarthritis Holding calcium carbonate/cholecalciferol 500 mg last 400 units 1 tablet twice a day. Resume when clinically indicated PT ff Access -Right subclavian CVL placed 06/23 day #8. keep for TPN. Probably d/c if PO tolerated. Prophylaxis - GI -famotidine - DVT - SCD/lovenox Discharge Planning Does not meet LTAC criteria. Dc to [facility] when cleared by Problem Qualifiers (1) Bowel obstruction: Qualified Codes: K56.601 - Complete intestinal obstruction, unspecified as to cause Brandon Hanson MD Jul 04, 2017 11:28
[2017-07-04 12:00] VITALS: BP 133/68; PULSE 86; RESP 17; TEMP 98.2; O2SAT 97
[2017-07-04 16:00] VITALS: BP_SYST 126; BP_SYST 127; BP_DIAS 73; BP_DIAS 79; PULSE 107; PULSE 79; RESP 20; TEMP 98; TEMP 98.3; O2SAT 95; O2SAT 98
[2017-07-04] MEDS: ENOXAPARIN SODIUM 40 MG/0.4 ML SYRINGE SQ SCH (17:35)
[2017-07-04 20:00] VITALS: BP 132/73; PULSE 85; RESP 16; TEMP 96.4; O2SAT 92
[2017-07-04] MEDS: [UNRECOGNIZED DRUG - OTHER] IV-CENTRAL SCH ×9 (20:06)
[2017-07-04] MEDS: MAGNESIUM CHLORIDE IV-CENTRAL SCH ×9 (20:06)
[2017-07-04] MEDS: POTASSIUM CHLORIDE IV-CENTRAL SCH ×9 (20:06)
[2017-07-04] MEDS: FAT EMULSION 20% INJ 250 ML (Daily over 8 hours) IV-CENTRAL SCH (20:07)
[2017-07-04] MEDS: DONEPEZIL HCL 5 MG TAB PO SCH (20:07)
[2017-07-04] MEDS: CHLORHEXIDINE GLUCONATE 2 % 1 PACK (2 CLOTHS) TOP SCH (20:08)
[2017-07-05] VITALS: BP 126/68; PULSE 74; RESP 17; TEMP 97.7; O2SAT 92
[2017-07-05] MEDS: ONDANSETRON HCL 4 MG/2 ML VIAL IVP PRN (03:52)
[2017-07-05] MEDS: ACETAMINOPHEN/HYDROcodone 325 MG/7.5 MG TAB PO PRN ×3 (04:29→18:24)
[2017-07-05 05:25] LABS: MEAN CELL VOLUME 83.9 FL (80.0-100.0); MEAN CORPUSCULAR HEMOGLOBIN 27.1 PG (27.0-34.0); MEAN CORPUSCULAR HGB CONC 32.3 % (32.0-36.0); PLATELET COUNT 234 TH/MM3 (150-450); RED BLOOD COUNT 2.86 MIL/MM3 (4.50-5.90); RED CELL DISTRIBUTION WIDTH 18.8 % (11.6-17.2); REVIEW FLAG FINAL; WHITE BLOOD COUNT 11.8 TH/MM3 (4.0-11.0)
[2017-07-05 05:51] LABS: BICARBONATE 24.7 MEQ/L (21.0-32.0); POTASSIUM 4.1 MEQ/L (3.5-5.1)
[2017-07-05 08:00] VITALS: BP 131/73; PULSE 76; RESP 16; TEMP 97.9; O2SAT 94
[2017-07-05] MEDS: CHLORHEXIDINE 0.12% (ORAL KIT) 15 ML CUP MT SCH ×2 (08:00→20:00)
[2017-07-05] MEDS: FAMOTIDINE 20 MG TAB PO SCH ×2 (08:33→20:39)
[2017-07-05] MEDS: predniSONE 10 MG TAB PO SCH (08:33)
[2017-07-05] MEDS: ASCORBIC ACID 500 MG TAB PO SCH ×2 (08:33→20:39)
[2017-07-05] MEDS: FLUoxetine HCL 20 MG CAP PO SCH (08:33)
[2017-07-05] MEDS: INSULIN DETEMIR 100 UNITS/ML VIAL SQ SCH ×2 (08:34→20:39)
[2017-07-05] MEDS: INSULIN ASPART SUPPLEMENTAL SCALE SQ SCH ×4 (08:34→20:39)
[2017-07-05] MEDS: SODIUM CHLORIDE 0.9% FLUSH 10 ML FLUSH IV FLUSH SCH ×2 (08:34→20:38)
--- NOTE | 2017-07-05 11:13 | HHI.PR ---
Subjective Remarks Follow-up: Preparation. He is doing well tolerating a regular diet. Ambulating. Discussed with RN Objective Vitals Vital Signs Date Time Temp Pulse Resp B/P (MAP) Pulse Ox O2 Delivery O2 Flow Rate FiO2 07/05/17 08:00 97.9 76 16 131/73 (92) 94 07/05/17 00:00 97.7 74 17 126/68 (87) 92 07/04/17 20:00 96.4 85 16 132/73 (92) 92 07/04/17 16:00 98.0 79 20 126/73 (90) 98 07/04/17 12:00 98.2 86 17 133/68 (89) 97 I/O 07/04/17 07/04/17 07/04/17 07/05/17 07/05/17 07/05/17 07:00 15:00 23:00 07:00 15:00 23:00 Intake Total 730 ml 1000 ml 490 ml Output Total 800 ml 1050 ml 250 ml Balance -70 ml -50 ml 240 ml Intake Oral 480 ml 240 ml IV Total 250 ml 1000 ml 250 ml Output Urine Total 550 ml 950 ml Stool Total 250 ml 100 ml 250 ml # Voids 2 # Bowel Movements 1 Result Diagram: 07/05/17 0445 07/05/17 0445 Imaging Last Impressions Chest X-Ray 06/28/17 0000 Signed Impressions: Service Date/Time: Wednesday, June 28, 2017 06:05 - CONCLUSION: 1. Endotracheal tube and nasogastric tube in appropriate position. 2. Mild diffuse bilateral airspace consolidation, improved since the prior exam. Forrest Santos MD Upper Extremity Ultrasound 06/25/17 0000 Signed Impressions: Service Date/Time: May 10:22 - CONCLUSION: Normal examination. Forrest Green MD Abdomen/Pelvis CT 06/23/17 0000 Signed Impressions: Service Date/Time: Friday, June 23, 2017 11:40 - CONCLUSION: Pneumoperitoneum worrisome for perforation of hollow viscus. No acute vascular findings. Forrest Green MD Abdomen X-Ray 06/23/17 0000 Signed Impressions: Service Date/Time: Friday, June 23, 2017 10:13 - CONCLUSION: 1. Findings consistent with improving partial small bowel obstruction. Maynor Shepard MD Objective Remarks GENERAL: 66-year-old male, well-developed and well-nourished SKIN: Warm and dry. Well perfused CARDIOVASCULAR: normal rate, regular rhythm. RESPIRATORY: Clear, breathing with ease, no adventitious sounds. GASTROINTESTINAL: Abdomen midline incision is clean dry and intact. Right lower quadrant ostomy is pink with some brown stool noted. MUSCULOSKELETAL: Extremities with no edema. No obvious deformities. NEUROLOGICAL:Awake and alert moving all extremities nonfocal Procedures Central line placement Intubation Exploratory Laparotomy, partial colectomy with takedown splenic flexure and colostomy placement secondary to perforated viscus, perforation at site of splenic flexure with lysis of adhesions from stomach, small bowel and spleen Assessment to: Remove Date of Insertion: Jun 23, 2017 Date of Removal: Jul 05, 2017 Line: Central Venous Catheter Side: Right Location: Subclavian A/P Problem List: (1) Bowel obstruction ICD Code: K56.609 - Unspecified intestinal obstruction, unspecified as to partial versus complete obstruction Status: Acute Assessment and Plan 66yM s/p colonic perforation and intra-abdominal contamination, complicated by hypoxic respiratory failure requiring intubation. Clinically appears to be lung injury, ARDS vs. TRALI. Continue negative fluid balance and supportive care. Extubated 06/30. Neuro/Psych: Acute toxic metabolic encephalopathy secondary to sepsis. Resolved Dementia disorder NOS Depression NOS Peripheral neuropathy Ct donepezil 5 mg at night for dementia Continue Lortab and IV Morphine sulfate as needed Continue Fluoxetine 40 mill grams daily Holding Gabapentin 100 mg 3 times a day per family request due to tremors CV: History of third-degree heart block - dual chambered pacemaker placed 04/11 new-onset afib RVR 06/27 currently sinus rhythm History of Hypertension Lactic acidosis - resolved Holding carvedilol 3.125 mg twice a day lisinopril 2.5 mg daily in light of hypotension Cardiology - Dr. Dunham has evaluated [id number] score of 3 needs to be on anticoagulation when ok by GS Resp: Acute hypoxic and hypercarbic respiratory failure. Resolved COPD Right upper lobe calcified granuloma Acute Pulmonary Edema - improving. ARDS vs. TRALI Incentive spirometry while awake Currently on albuterol/ipratropium aerosols every 4 hours with albuterol aerosols every 2 hours when necessary dyspnea Wean oxygen keep saturation at least 92% GI: Postop Exploratory Laparotomy, partial colectomy with takedown splenic flexure and colostomy placement secondary to perforated viscus, perforation at site of splenic flexure with lysis of adhesions from stomach, small bowel and spleen Dr. Soares Admission diagnosis Large bowel obstruction History of internal/external hemorrhoids UC Sigmoid/descending colonic ulcers Liver cysts Hypoalbuminemia Abdominal ascites Hypokalemia Hypomagnesemia Hypernatremia CT abdomen/pelvis on admission revealed dilatation the small bowel. Ascending and transverse colon. Transition point the distal transverse colon. Collapsed descending colon. Cecum thickening. CT angiogram 06/23 revealed perforated viscus/pneumoperitoneum Last admission status post colonoscopy 2. Noted 05/27 unable to transverse sigmoid colon due to stricture. Unable to transverse transverse colon due to stricture 06/03. Sigmoid ulcers. C. difficile positive. home regimen: mesalamine 800 mg 3 times a day pulse dosing of steroid GI/general surgery consult. Dr. Soares Home medication famotidine 20 mg twice a day for GI prophylaxis. 06/24 - TPN at 70 cc an hour with 20% lipids daily wean and discontinue since patient is tolerating regular diet Also wean prednisone Per GI discontinue mesalamine : Dc [place] catheter Endo: IDDM Will continue sliding scale insulin with Accu-Cheks to maintain euglycemia Continue 15 units insulin to TPN and insulin detemir 5 units twice a day Renal: Chronic kidney disease stage II 1.1 left renal cyst/tiny right infrarenal cyst Monitor urine output Accurate I's and O's Heme: Normocytic anemia Thrombocytopenia Leukocytosis. Improving Monitor CBC. Follow trends Previous admission with thrombocytopenia likely secondary infection/DIC. Transfused 1 unit PRBCs 06/25 ID: History of C. difficile Funguria - asx S/p metronidazole 500 mg every 8 hours and vancomycin 125 mg by mouth every 6 hours Was also on piperacillin/tazobactam 4.5 g IV every 6 hours Appears to being treated with C. difficile. C. difficile negative this admission Blood cultures 2, no growth Culture 06/22 - C. albicans Off antimicrobials , ID has signed off FEN: Hypokalemia Hypomagnesemia Hypocalcemia Replacing electrolytes as clinically indicated MSK: Osteoarthritis Holding calcium carbonate/cholecalciferol 500 mg last 400 units 1 tablet twice a day. Resume when clinically indicated PT ff Access -Right subclavian CVL placed 06/23 day #8. keep for TPN. Discontinue CVL when off TPN Prophylaxis - GI -famotidine - DVT - SCD/lovenox Discharge Planning Does not meet LTAC criteria. Dc to [facility] when cleared by Problem Qualifiers (1) Bowel obstruction: Qualified Codes: K56.601 - Complete intestinal obstruction, unspecified as to cause Abando,Brandon Alvarado MD Jul 05, 2017 11:13
[2017-07-05] MEDS ORDERED: LEVEMIR SQ (11:20)
[2017-07-05] MEDS ORDERED: PRED10 PO (11:20)
[2017-07-05] MEDS ORDERED: HYDR-3580 PO (11:20)
--- NOTE | 2017-07-05 11:20 | HHI.DCPOC ---
Discharge Care Plan Diagnosis: (1) Bowel obstruction Your Health Problems Are: Difficulty with ADL Exercise Tolerance Goals to Promote Your Health * To prevent worsening of your condition and complications * To maintain your health at the optimal level Directions to Meet Your Goals Take your medications as prescribed Follow your dietary instruction Follow activity as directed Keep your appointments as scheduled Take your immunizations and boosters as scheduled If your symptoms worsen call your PCP, if no PCP go to Urgent Care Center or Emergency Room Smoking is Dangerous to Your Health. Avoid second hand smoke Call the 24-hour hour crisis hotline for domestic abuse at Brandon Hanson MD Jul 05, 2017 11:20
--- NOTE | 2017-07-05 11:21 | HHI.DS ---
Discharge Summary Admission Date Jun 22, 2017 at 03:55 Discharge Date: Jul 05, 2017 Admitting Diagnosis Sepsis, bowel obstruction (1) Bowel obstruction ICD Code: K56.609 - Unspecified intestinal obstruction, unspecified as to partial versus complete obstruction Diagnosis: Principal Status: Acute Procedures Central line placement Intubation Exploratory Laparotomy, partial colectomy with takedown splenic flexure and colostomy placement secondary to perforated viscus, perforation at site of splenic flexure with lysis of adhesions from stomach, small bowel and spleen Brief History - From Admission 66-year-old male currently residing at the rehabilitation facility comes in due to fever with low blood pressure, abdominal pain and vomiting. He has history of bowel obstruction in the past. He also was diagnosed with C. difficile. Per patient his abdominal pain never got any better since being in the hospital about a month ago. However, he does say that it has gotten worse recently. He vomited today. He says he continues to have diarrhea. He was found to be febrile. He denies chest pain or shortness of breath. He was admitted in the end of April for bowel obstruction and presented in similar fashion at that time. CBC/BMP: 07/05/17 0445 07/05/17 0445 Significant Findings Laboratory Tests Test 07/03/17 03:50 07/04/17 03:58 07/05/17 04:45 White Blood Count 15.6 TH/MM3 (4.0-11.0) 13.3 TH/MM3 (4.0-11.0) 11.8 TH/MM3 (4.0-11.0) Red Blood Count 2.76 MIL/MM3 (4.50-5.90) 3.31 MIL/MM3 (4.50-5.90) 2.86 MIL/MM3 (4.50-5.90) Hemoglobin 7.6 GM/DL (13.0-17.0) 9.0 GM/DL (13.0-17.0) 7.8 GM/DL (13.0-17.0) Hematocrit 22.9 % (39.0-51.0) 28.2 % (39.0-51.0) 24.0 % (39.0-51.0) Red Cell Distribution Width 18.8 % (11.6-17.2) 19.0 % (11.6-17.2) 18.8 % (11.6-17.2) Platelet Count 142 TH/MM3 (150-450) Blood Urea Nitrogen 24 MG/DL (7-18) 22 MG/DL (7-18) 19 MG/DL (7-18) Creatinine 0.55 MG/DL (0.60-1.30) 0.52 MG/DL (0.60-1.30) Random Glucose 135 MG/DL (74-106) 130 MG/DL (74-106) 186 MG/DL (74-106) Total Protein 5.1 GM/DL (6.4-8.2) 6.0 GM/DL (6.4-8.2) Calcium Level 7.4 MG/DL (8.5-10.1) 7.8 MG/DL (8.5-10.1) 7.6 MG/DL (8.5-10.1) Potassium Level 3.4 MEQ/L (3.5-5.1) Chloride Level 111 MEQ/L (98-107) 110 MEQ/L (98-107) 109 MEQ/L (98-107) Neutrophils (%) (Auto) 86.1 % (16.0-70.0) Neutrophils # (Auto) 11.4 TH/MM3 (1.8-7.7) Albumin 1.1 GM/DL (3.4-5.0) Alkaline Phosphatase 269 U/L (45-117) Imaging Last Impressions Chest X-Ray 06/28/17 0000 Signed Impressions: Service Date/Time: Wednesday, June 28, 2017 06:05 - CONCLUSION: 1. Endotracheal tube and nasogastric tube in appropriate position. 2. Mild diffuse bilateral airspace consolidation, improved since the prior exam. Forrest Santos MD Upper Extremity Ultrasound 06/25/17 0000 Signed Impressions: Service Date/Time: May 10:22 - CONCLUSION: Normal examination. Forrest Green MD Abdomen/Pelvis CT 06/23/17 0000 Signed Impressions: Service Date/Time: Friday, June 23, 2017 11:40 - CONCLUSION: Pneumoperitoneum worrisome for perforation of hollow viscus. No acute vascular findings. Forrest Green MD Abdomen X-Ray 06/23/17 0000 Signed Impressions: Service Date/Time: Friday, June 23, 2017 10:13 - CONCLUSION: 1. Findings consistent with improving partial small bowel obstruction. Maynor Shepard MD PE at Discharge GENERAL: 66-year-old male, well-developed and well-nourished SKIN: Warm and dry. Well perfused CARDIOVASCULAR: normal rate, regular rhythm. sinus this AM. RESPIRATORY: Clear, breathing with ease, no adventitious sounds. GASTROINTESTINAL: Abdomen midline incision is clean dry and intact. Right lower quadrant ostomy is pink with some brown stool noted. MUSCULOSKELETAL: Extremities with no edema. No obvious deformities. NEUROLOGICAL:Awake and alert moving all extremities nonfocal Hospital Course 66yM s/p colonic perforation and intra-abdominal contamination, complicated by hypoxic respiratory failure requiring intubation. Clinically appears to be lung injury, ARDS vs. TRALI. Continue negative fluid balance and supportive care. Extubated 06/30. Postop Exploratory Laparotomy, partial colectomy with takedown splenic flexure and colostomy placement secondary to perforated viscus, perforation at site of splenic flexure with lysis of adhesions from stomach, small bowel and spleen Dr. Soares Admission diagnosis Large bowel obstruction History of internal/external hemorrhoids UC Sigmoid/descending colonic ulcers Liver cysts Hypoalbuminemia Abdominal ascites Hypokalemia Hypomagnesemia Hypernatremia CT abdomen/pelvis on admission revealed dilatation the small bowel. Ascending and transverse colon. Transition point the distal transverse colon. Collapsed descending colon. Cecum thickening. CT angiogram 06/23 revealed perforated viscus/pneumoperitoneum Last admission status post colonoscopy 2. Noted 05/27 unable to transverse sigmoid colon due to stricture. Unable to transverse transverse colon due to stricture 06/03. Sigmoid ulcers. C. difficile positive. home regimen: mesalamine 800 mg 3 times a day pulse dosing of steroid GI/general surgery consult. Dr. Soares Home medication famotidine 20 mg twice a day for GI prophylaxis. 06/24 - TPN at 70 cc an hour with 20% lipids daily wean and discontinue since patient is tolerating regular diet Also wean prednisone Per GI discontinue mesalamine Neuro Acute toxic metabolic encephalopathy secondary to sepsis. Resolved Dementia disorder NOS Depression NOS Peripheral neuropathy Ct donepezil 5 mg at night for dementia Continue Lortab and IV Morphine sulfate as needed Continue Fluoxetine 40 mill grams daily Holding Gabapentin 100 mg 3 times a day per family request due to tremors CV: History of third-degree heart block - dual chambered pacemaker placed 04/11 new-onset afib RVR 06/27 currently sinus rhythm History of Hypertension Lactic acidosis - resolved Holding carvedilol 3.125 mg twice a day lisinopril 2.5 mg daily in light of hypotension Cardiology - Dr. Dunham has evaluated [id number] score of 3 needs to be on anticoagulation when ok by GS Resp: Acute hypoxic and hypercarbic respiratory failure. Resolved COPD Right upper lobe calcified granuloma Acute Pulmonary Edema - improving. ARDS vs. TRALI Incentive spirometry while awake Currently on albuterol/ipratropium aerosols every 4 hours with albuterol aerosols every 2 hours when necessary dyspnea Wean oxygen keep saturation at least 92% Endo: IDDM Will continue sliding scale insulin with Accu-Cheks to maintain euglycemia Continue 15 units insulin to TPN and insulin detemir 5 units twice a day Heme: Normocytic anemia Thrombocytopenia Leukocytosis. Improving Monitor CBC. Follow trends Previous admission with thrombocytopenia likely secondary infection/DIC. Transfused 1 unit PRBCs 06/25 ID: History of C. difficile Funguria - asx S/p metronidazole 500 mg every 8 hours and vancomycin 125 mg by mouth every 6 hours Was also on piperacillin/tazobactam 4.5 g IV every 6 hours Appears to being treated with C. difficile. C. difficile negative this admission Blood cultures 2, no growth Culture 06/22 - C. albicans Off antimicrobials , ID has signed off Pt Condition on Discharge: Stable Discharge Disposition: Discharge to SNF Discharge Time: > 30 minutes Discharge Instructions DIET: Follow Instructions for: Diabetic Diet Activities you can perform: Regular-No Restrictions Activities to Avoid: Driving Follow up Referrals: Gastroenterology - 1 Week PCP Follow-up - 2-3 Days Surgical - 1 Week New Medications: Hydrocodone/Acetaminophen (Hydrocodone-Acetamin 7.5-325) 7.5 Mg-325 Mg Tablet 1 TAB PO Q6H PRN for PAIN SCALE 6 TO 10 for 12 Days, #48 TAB Insulin Detemir Inj (Levemir Inj) 1,000 unit/ 10 ML Vial 5 UNITS SQ Q12HR for Blood Sugar Management, #60 INJECTION Do not mix with any other Insulin. Prednisone (Prednisone) 10 Mg Tab 10 MG PO DAILY for Control Inflammation, #3 TAB Continued Medications: Acetaminophen (Non-Aspirin) 325 Mg Tab 325 MG PO Q4-6H PRN for FEVER, TAB 0 Refills Ascorbic Acid (Vitamin C) 250 Mg Chew 500 MG CHEW BID for Nutritional Supplement, #60 TAB 0 Refills Calcium Carbonate-Cholecalciferol (Calcium 500 +D) 500-400 Mg-Unit Tab 1 TAB PO DAILY for Calcium Supplement, TAB 0 Refills Donepezil (Aricept) 23 Mg Tab 5 MG PO HS, TAB Do not split, crushed or chewed. Famotidine (Famotidine) 20 Mg Tab 20 MG PO BID for Reflux, #60 TAB Fluoxetine (Fluoxetine) 40 Mg Cap 40 CAP PO DAILY, #30 CAP 0 Refills Insulin Human Regular Inj (Novolin R Inj) 1,000 Unit/10 Ml Vial 0 SQ DIRECTED for Blood Sugar Management, #10 ML 0 Refills Sliding Scale As Directed. Multiple Vitamin (Multi Vitamin Daily) 1 Tab Tab Discontinued Medications: Bisacodyl Supp (Dulcolax Supp) 10 Mg Supp 10 MG RECTAL DAILY PRN for CONSTIPATION, #12 SUPP 0 Refills Carvedilol (Carvedilol) 3.125 Mg Tab 3.125 MG PO BID, #60 TAB 0 Refills Gabapentin (Gabapentin) 100 Mg Cap 100 MG PO TID for Pain Management, #30 CAP Hydrocodone/Acetaminophen (Hydrocodone-Acetamin 5-325 mg) 5 Mg-325 Mg Tablet 1 TAB PO Q6H PRN for Pain 6-10, #20 TAB Insulin Detemir Inj (Levemir Inj) 1,000 unit/ 10 ML Vial 20 UNITS SQ HS for Blood Sugar Management, VIAL 0 Refills Do not mix with any other Insulin. Insulin Detemir Inj (Levemir Inj) 1,000 unit/ 10 ML Vial 20 UNITS SQ am for Blood Sugar Management, VIAL 0 Refills Do not mix with any other Insulin. Lisinopril (Lisinopril) 10 Mg Tab 2.5 MG PO DAILY, #30 TAB 0 Refills Magnesium Citrate Liq (Citroma Liq) 300 Ml Liq 300 ML PO DIRECTED, #1 BOTTLE 0 Refills Magnesium Hydroxide Liq (Milk of Magnesia Liq) 400 Mg/5 Ml Susp 10 ML PO Q8HR PRN for INDIGESTION OR UPSET STOMACH, #1 BOTTLE [address] (Mesalamine DR) 800 Mg Tab 800 MG PO Q8HR for ulcerative colitis, #90 TAB Prednisone (Prednisone) 20 Mg Tab 20 MG PO DIRECTED for colitis, #48 TAB 0 Refills Take 2 tabs (40mg) by mouth daily x 9 days, then take 1.5 tabs (30mg) x 10 days, then take 1 tab (20mg) x 10 days, then take 1/2 tab x 10 days then d/c. Sodium Phosphates (Enema Dvgaf-Mw-Egk) 19 Gram-7 Gram/118 Ml Heydi Brandon Hanson MD Jul 05, 2017 11:21
[2017-07-05 12:00] VITALS: BP 129/77; PULSE 79; RESP 18; TEMP 97.7; O2SAT 95
--- NOTE | 2017-07-05 15:52 | HHI.PR ---
cc: Conner Roblero MD Subjective Subjective Notes DAILY PROGRESS NOTE FOR SURGICAL ATTENDING, DR. CONNER ROBLERO I think am going to rehabilitation today I ate pretty good Objective Vitals/I&O Vital Signs Date Time Temp Pulse Resp B/P (MAP) Pulse Ox O2 Delivery O2 Flow Rate FiO2 07/05/17 12:00 97.7 79 18 129/77 (94) 95 07/02/17 21:34 Nasal Cannula 3.00 Labs Laboratory Tests Test 07/05/17 04:45 White Blood Count 11.8 Red Blood Count 2.86 Hemoglobin 7.8 Hematocrit 24.0 Mean Corpuscular Volume 83.9 Mean Corpuscular Hemoglobin 27.1 Mean Corpuscular Hemoglobin Concent 32.3 Red Cell Distribution Width 18.8 Platelet Count 234 Mean Platelet Volume 9.6 Blood Urea Nitrogen 19 Creatinine 0.52 Random Glucose 186 Calcium Level 7.6 Sodium Level 139 Potassium Level 4.1 Chloride Level 109 Carbon Dioxide Level 24.7 Anion Gap 5 Estimat Glomerular Filtration Rate 159 Date/Time Source Procedure Growth Status 06/22/17 12:23 Blood Peripheral Aerobic Blood Culture - Final NO GROWTH IN 5 DAYS Complete 06/22/17 12:23 Blood Peripheral Anaerobic Blood Culture - Final NO GROWTH IN 5 DAYS Complete 06/28/17 06:04 Sputum Endotracheal Gram Stain - Final Complete 06/28/17 06:04 Sputum Endotracheal Sputum Culture - Final RARE GROWTH NORMAL RESPIRATORY EUFEMIA Complete 06/22/17 04:20 Urine Catheterized Urine Urine Culture - Final Oumou Albicans Complete Radiology Last Impressions Chest X-Ray 06/28/17 0000 Signed Impressions: Service Date/Time: Wednesday, June 28, 2017 06:05 - CONCLUSION: 1. Endotracheal tube and nasogastric tube in appropriate position. 2. Mild diffuse bilateral airspace consolidation, improved since the prior exam. Forrest Santos MD Upper Extremity Ultrasound 06/25/17 0000 Signed Impressions: Service Date/Time: May 10:22 - CONCLUSION: Normal examination. Forrest Green MD Abdomen/Pelvis CT 06/23/17 0000 Signed Impressions: Service Date/Time: Friday, June 23, 2017 11:40 - CONCLUSION: Pneumoperitoneum worrisome for perforation of hollow viscus. No acute vascular findings. Forrest Green MD Abdomen X-Ray 06/23/17 0000 Signed Impressions: Service Date/Time: Friday, June 23, 2017 10:13 - CONCLUSION: 1. Findings consistent with improving partial small bowel obstruction. Maynor Shepard MD Cardiovascular: Regular Lungs: Clear Abdomen: Post-op tenderness Extremities: Perfused Narrative Exam Ileostomy with output A/P Assessment and Plan 66-year-old gentleman status post partial colectomy ileostomy Improving wants to eat Increase diet Weaning TPN Wean oxygen Possible rehabilitation today Attending Statement NOTE FOR SURGICAL ATTENDING, DR. CONNER ROBLERO I attest that I had a [id number] encounter with the patient on the same day, and personally performed and documented my assessment and findings in the medical record. The following services were provided during this hospital visit: Chart data review, vital sign assessments/reviewing monitor data Review of consultations notes if present. Medication orders/review and/or management Ordering and/or reviewing lab tests Ordering and/or interpreting/reviewing x-rays and/or diagnostic studies Care of the patient and discussion of the patient with the care team Documentation time To help prompt me to consider important information that might be impacting today's encounter and assessment, information from prior notes written by myself or my colleagues may have been "brought forward/copy and pasted" into today's note. Conner Roblero MD Jul 05, 2017 15:52
[2017-07-05 16:00] VITALS: BP 126/72; PULSE 81; RESP 18; TEMP 97.7; O2SAT 95
[2017-07-05] MEDS: ENOXAPARIN SODIUM 40 MG/0.4 ML SYRINGE SQ SCH (18:24)
[2017-07-05 20:00] VITALS: BP 137/70; PULSE 91; RESP 17; TEMP 98.3; O2SAT 91
[2017-07-05] MEDS: [UNRECOGNIZED DRUG - OTHER] IV-CENTRAL SCH ×9 (20:00)
[2017-07-05] MEDS: MAGNESIUM CHLORIDE IV-CENTRAL SCH ×9 (20:00)
[2017-07-05] MEDS: POTASSIUM CHLORIDE IV-CENTRAL SCH ×9 (20:00)
[2017-07-05] MEDS: FAT EMULSION 20% INJ 250 ML (Daily over 8 hours) IV-CENTRAL SCH (20:00)
[2017-07-05] MEDS: DONEPEZIL HCL 5 MG TAB PO SCH (20:39)
[2017-07-05] MEDS: CHLORHEXIDINE GLUCONATE 2 % 1 PACK (2 CLOTHS) TOP SCH (20:40)
[2017-07-06] VITALS: BP 133/68; PULSE 90; RESP 17; TEMP 97.9; O2SAT 91
[2017-07-06 06:50] LABS: AUTOMATED NEUTROPHIL # 8.1 TH/MM3 (1.8-7.7); BASOPHIL # 0.1 TH/MM3 (0-0.2); BASOPHIL % 0.5 % (0.0-2.0); EOSINOPHIL % 0.5 % (0.0-4.0); HEMO FLAGS DIFF FINAL; LYMPH % 9.5 % (9.0-44.0); LYMPHOCYTE # 0.9 TH/MM3 (1.0-4.8); MEAN CELL VOLUME 83.5 FL (80.0-100.0); MEAN CORPUSCULAR HEMOGLOBIN 27.5 PG (27.0-34.0); MEAN CORPUSCULAR HGB CONC 32.9 % (32.0-36.0); MONO % 4.5 % (0.0-8.0); PLATELET COUNT 271 TH/MM3 (150-450); RED BLOOD COUNT 2.99 MIL/MM3 (4.50-5.90); RED CELL DISTRIBUTION WIDTH 18.4 % (11.6-17.2); WHITE BLOOD COUNT 9.6 TH/MM3 (4.0-11.0)
[2017-07-06 07:15] LABS: BICARBONATE 21.2 MEQ/L (21.0-32.0); MAGNESIUM 1.7 MG/DL (1.5-2.5); POTASSIUM 3.9 MEQ/L (3.5-5.1)
[2017-07-06 08:00] VITALS: BP 127/63; PULSE 95; RESP 16; TEMP 98.3; O2SAT 92
[2017-07-06] MEDS: INSULIN ASPART SUPPLEMENTAL SCALE SQ SCH ×2 (08:00→12:00)
[2017-07-06] MEDS: CHLORHEXIDINE 0.12% (ORAL KIT) 15 ML CUP MT SCH (08:00)
[2017-07-06] MEDS: SODIUM CHLORIDE 0.9% FLUSH 10 ML FLUSH IV FLUSH SCH (08:54)
[2017-07-06] MEDS: predniSONE 10 MG TAB PO SCH (08:55)
[2017-07-06] MEDS: ASCORBIC ACID 500 MG TAB PO SCH (08:55)
[2017-07-06] MEDS: FAMOTIDINE 20 MG TAB PO SCH (08:56)
[2017-07-06] MEDS: INSULIN DETEMIR 100 UNITS/ML VIAL SQ SCH (08:56)
[2017-07-06] MEDS: FLUoxetine HCL 20 MG CAP PO SCH (09:03)
--- NOTE | 2017-07-06 09:03 | HHI.PR ---
Subjective Remarks Follow-up: Preparation. He is doing well tolerating a regular diet. Ambulating. Discussed with RN Objective Vital Signs Date Time Temp Pulse Resp B/P (MAP) Pulse Ox O2 Delivery O2 Flow Rate FiO2 07/06/17 08:00 98.3 95 16 127/63 (84) 92 07/06/17 00:00 97.9 90 17 133/68 (89) 91 07/05/17 20:00 98.3 91 17 137/70 (92) 91 07/05/17 16:00 97.7 81 18 126/72 (90) 95 07/05/17 12:00 97.7 79 18 129/77 (94) 95 I/O 07/05/17 07/05/17 07/05/17 07/06/17 07/06/17 07/06/17 07:00 15:00 23:00 07:00 15:00 23:00 Intake Total 490 ml 1240 ml 240 ml Output Total 250 ml 2000 ml 850 ml Balance 240 ml -760 ml -610 ml Intake Oral 240 ml 240 ml 240 ml IV Total 250 ml 1000 ml Output Urine Total 1400 ml 500 ml Stool Total 250 ml 600 ml 350 ml # Voids 2 Result Diagram: 07/06/17 0615 07/06/17 0615 Imaging Last Impressions Chest X-Ray 06/28/17 0000 Signed Impressions: Service Date/Time: Wednesday, June 28, 2017 06:05 - CONCLUSION: 1. Endotracheal tube and nasogastric tube in appropriate position. 2. Mild diffuse bilateral airspace consolidation, improved since the prior exam. Forrest Santos MD Upper Extremity Ultrasound 06/25/17 0000 Signed Impressions: Service Date/Time: May 10:22 - CONCLUSION: Normal examination. Forrest Green MD Abdomen/Pelvis CT 06/23/17 0000 Signed Impressions: Service Date/Time: Friday, June 23, 2017 11:40 - CONCLUSION: Pneumoperitoneum worrisome for perforation of hollow viscus. No acute vascular findings. Forrest Green MD Abdomen X-Ray 06/23/17 0000 Signed Impressions: Service Date/Time: Friday, June 23, 2017 10:13 - CONCLUSION: 1. Findings consistent with improving partial small bowel obstruction. Maynor Bozorgmanesh, MD Procedures Central line placement Intubation Exploratory Laparotomy, partial colectomy with takedown splenic flexure and colostomy placement secondary to perforated viscus, perforation at site of splenic flexure with lysis of adhesions from stomach, small bowel and spleen Other Results Laboratory Tests Test 06/22/17 00:46 06/22/17 04:20 06/22/17 07:05 06/22/17 12:23 Troponin I 0.06 NG/ML Urine Color YELLOW Urine Turbidity HAZY Urine pH 5.5 Urine Specific [place] 1.037 Urine Protein 30 mg/dL Urine Glucose (UA) NEG mg/dL Urine Ketones NEG mg/dL Urine Occult Blood NEG Urine Nitrite NEG Urine Bilirubin NEG Urine Urobilinogen LESS THAN 2.0 MG/DL Urine Leukocyte Esterase TRACE Urine RBC 13 /hpf Urine WBC 7 /hpf Urine Squamous Epithelial Cells <1 /hpf Urine Bacteria RARE /hpf Urine Hyaline Casts 54 /lpf Urine Granular Casts 1 /lpf Urine Mucus FEW /lpf Urine Yeast (Budding) RARE Microscopic Urinalysis Comment CATH-CULTURE IND Nasal Screen MRSA (PCR) MRSA NOT DETECTED C-Reactive Protein 17.40 MG/DL Test 06/23/17 05:42 06/23/17 20:20 06/25/17 05:15 06/25/17 10:24 Ammonia LESS THAN 10 MCMOL/L Amylase Level 19 U/L Lipase 32 U/L Thyroid Stimulating Hormone 3rd Gen 1.610 uIU/ML Vancomycin Level Trough 2.5 MCG/ML Platelet Estimate LOW Platelet Morphology Comment NORMAL Lactic Acid Level 1.1 mmol/L Heparin-Induced Platelet Ab (Shy) NEGATIVE HIPA Patient Optical Density 0.074 O.D. Test 06/26/17 03:30 06/26/17 10:00 06/27/17 20:34 06/28/17 08:40 Triglycerides Level 150 MG/DL Blood Gas Liter Flow 40 L/M Stool C. difficile Toxin (PCR) NEGATIVE Stl C. difficile Toxin Epiderm 027 PRESUMPTIVE NEGATIVE Blood Gas Puncture Site LT RADIAL Blood Gas Patient Temperature 98.6 Blood Gas HCO3 30 mmol/L Blood Gas Base Excess 4.3 mmol/L Blood Gas Oxygen Saturation 95 % Arterial Blood pH 7.29 Arterial Blood Partial Pressure CO2 66 mmHg Arterial Blood Partial Pressure O2 124 mmHg Arterial Blood Oxygen Content 12.7 Vol % Arterial Blood Carboxyhemoglobin 0.2 % Arterial Blood Methemoglobin 0.6 % Blood Gas Hemoglobin 9.3 G/DL Oxygen Delivery Device VENTILATOR Blood Gas Ventilator Setting PRVC/AC Blood Gas Inspired Oxygen 50 % Test 06/28/17 19:42 07/03/17 03:50 07/04/17 03:58 07/06/17 06:15 Prothrombin Time 11.4 SEC Prothromb Time International Ratio 1.1 RATIO Activated Partial Thromboplast Time 34.1 SEC Fibrinogen 557 mg/dL Protein Corrected Calcium 8.5 MG/DL Blood Urea Nitrogen 22 MG/DL 20 MG/DL Creatinine 0.62 MG/DL 0.56 MG/DL Random Glucose 130 MG/DL 157 MG/DL Total Protein 6.0 GM/DL Albumin 1.1 GM/DL Calcium Level 7.8 MG/DL 7.7 MG/DL Phosphorus Level 2.5 MG/DL Magnesium Level 1.8 MG/DL 1.7 MG/DL Alkaline Phosphatase 269 U/L Aspartate Amino Transf (AST/SGOT) 37 U/L Alanine Aminotransferase (ALT/SGPT) 46 U/L Total Bilirubin 0.3 MG/DL Sodium Level 140 MEQ/L 141 MEQ/L Potassium Level 4.0 MEQ/L 3.9 MEQ/L Chloride Level 110 MEQ/L 108 MEQ/L Carbon Dioxide Level 22.8 MEQ/L 21.2 MEQ/L White Blood Count 9.6 TH/MM3 Red Blood Count 2.99 MIL/MM3 Hemoglobin 8.2 GM/DL Hematocrit 25.0 % Mean Corpuscular Volume 83.5 FL Mean Corpuscular Hemoglobin 27.5 PG Mean Corpuscular Hemoglobin Concent 32.9 % Red Cell Distribution Width 18.4 % Platelet Count 271 TH/MM3 Mean Platelet Volume 9.4 FL Neutrophils (%) (Auto) 85.0 % Lymphocytes (%) (Auto) 9.5 % Monocytes (%) (Auto) 4.5 % Eosinophils (%) (Auto) 0.5 % Basophils (%) (Auto) 0.5 % Neutrophils # (Auto) 8.1 TH/MM3 Lymphocytes # (Auto) 0.9 TH/MM3 Monocytes # (Auto) 0.4 TH/MM3 Eosinophils # (Auto) 0.0 TH/MM3 Basophils # (Auto) 0.1 TH/MM3 CBC Comment DIFF FINAL Differential Comment Anion Gap 12 MEQ/L Estimat Glomerular Filtration Rate 146 ML/MIN Objective Remarks GENERAL: 66-year-old male, well-developed and well-nourished SKIN: Warm and dry. Well perfused CARDIOVASCULAR: normal rate, regular rhythm. RESPIRATORY: Clear, breathing with ease, no adventitious sounds. GASTROINTESTINAL: Abdomen midline incision is clean dry and intact. Right lower quadrant ostomy is pink with some brown stool noted. MUSCULOSKELETAL: Extremities with no edema. No obvious deformities. NEUROLOGICAL:Awake and alert moving all extremities nonfocal Medications and IVs Current Medications Medications (Trade) Dose Ordered Sig/Tricia Route Start Time Stop Time Status Last Admin (PROzac) 40 mg DAILY PO 06/22/17 09:00 07/05/17 08:33 (Vitamin C) 500 mg BID PO 06/22/17 09:00 07/05/17 20:39 (Aricept) 5 mg HS PO 06/22/17 21:00 07/05/17 20:39 (NS Flush) 2 ml UNSCH PRN IV FLUSH 06/22/17 04:45 (NS Flush) 2 ml BID IV FLUSH 06/22/17 09:00 07/05/17 20:38 Miscellaneous Information 1 Q361D XX 06/22/17 04:45 (Chlorhexidine 2% Cloth) Taper DAILY@04 TOP 06/23/17 04:00 06/19/18 03:59 06/27/17 04:00 (Chlorhexidine 2% Cloth) 3 pack UNSCH PRN TOP 06/22/17 04:45 (Albuterol Neb) 2.5 mg Q2HR NEB PRN NEB 06/22/17 09:00 07/01/17 20:25 Fat Emulsion Intravenous 250 ml @ 31.25 mls/ hr Q24H IV-CENTRAL 06/24/17 20:00 07/04/17 20:07 (Lopressor Inj) 5 mg Q5M PRN IV PUSH 06/26/17 04:30 06/28/17 00:28 (Lovenox Inj) 40 mg Q24H SQ 06/26/17 17:00 07/05/17 18:24 (Peridex 0.12% Liq) 15 ml BID@08,20 MT 06/28/17 08:00 07/03/17 08:00 (Levemir Inj) 5 units Q12HR SQ 06/28/17 21:00 07/05/17 20:39 (D50w (Vial) Inj) 50 ml UNSCH PRN IV PUSH 06/28/17 20:15 (Glucagon Inj) 1 mg UNSCH PRN OTHER 06/28/17 20:15 Potassium Chloride 20 meq/ Magnesium Chloride 5 meq/ Calcium Chloride 4.5 meq/ Multivitamins 10 ml/Folic Acid 1 mg/Potassium Acetate 29.5 meq/ Potassium Phosphate 20 meq/ Insulin Human Regular 15 units/ Amino Acids/ Dextrose 1,045.4924 ml @ 35 mls/hr Q24H IV-CENTRAL 07/02/17 20:00 07/04/17 20:06 (Pepcid) 20 mg BID PO 07/03/17 21:00 07/05/17 20:39 (NovoLOG SUPPLEMENTAL SCALE) 1 ACHS SLIDING SCALE SQ 07/03/17 21:00 07/05/17 08:34 (Tylenol) 650 mg Q4H PRN PO 07/03/17 18:00 (Zofran Inj) 4 mg Q6H PRN IVP 07/03/17 18:00 07/05/17 03:52 (Tylenol) 650 mg Q6H PRN PO 07/03/17 18:00 ([place] 5-325 Mg) 1 tab Q4H PRN PO 07/03/17 18:00 ([place] 7.5-325 Mg) 1 tab Q4H PRN PO 07/03/17 18:00 07/05/17 18:24 (Narcan Inj) 0.4 mg UNSCH PRN IV PUSH 07/03/17 18:00 (Deltasone) 10 mg DAILY PO 07/04/17 09:00 07/05/17 08:33 A/P Assessment and Plan This is a pleasant 66 y/o male with Status post Colonic perforation and intraabdominal contamination, complicated with Hypoxic respiratory failure requiring intubation, was extubated 06/30. 1. Acute toxic metabolic Encephalopathy Resolved Dementia/Depression/Peripheral Neuropathy, on Donepezil 5 mg, Pain medicine , Fluoxetine and Gabapentin. 2. History 0f Third degree heart block, Dual chamber pacemaker placed 04/11/New onset A Fibrillation RVR, currently on sinus rhythm Hypertension, on Hold Carvedilol due to Hypotension, Cardiology Dr. Dunham following, CHADS2 Vasc score 3 for anticoagulation once okay by General Surgery 3. VRDF Resolved/COPD/Right upper lobe calcified Granuloma/ARDS vs TRALI continue Bronchodilator, Mucolytic and Incentive spirometry 4 Post Operative Exploratory Laparotomy, Partial Colectomy with takedown splenic flexure, and colostomy placement secondary to perforated viscus perforation at site of splenic flexure with Lysis of adhesions from stomach , small bowel and Spleen, Doctor Rodger, admission diagnosis of Large bowel Obstruction, UC, Sigmoid descending colonic ulcers, Liver cysts, Ascites, CT abdomen/pelvis on admission revealed dilatation the small bowel. Ascending and transverse colon. Transition point the distal transverse colon. Collapsed descending colon. Cecum thickening. CT angiogram 06/23 revealed perforated viscus/pneumoperitoneum Last admission status post colonoscopy 2. Noted 05/27 unable to transverse sigmoid colon due to stricture. Unable to transverse transverse colon due to stricture 06/03. Sigmoid ulcers. C. difficile positive. home regimen: mesalamine 800 mg 3 times a day pulse dosing of steroid GI/general surgery consult. Dr. Soares Home medication famotidine 20 mg twice a day for GI prophylaxis. 06/24 - TPN at 70 cc an hour with 20% lipids daily wean and discontinue since patient is tolerating regular diet Also wean prednisone Per GI discontinue mesalamine 5. DM II continue sliding scale and long lasting insulin 6. Chronic Kidney disease stage II, 1.1 left renal cyst/tiny right infrarenal cyst 7. Anemia/Thrombocytopenia status post blood transfusion 06/25 8. History of C Diff/Fuguria Asymptomatic, S/p metronidazole 500 mg every 8 hours and vancomycin 125 mg by mouth every 6 hours Was also on piperacillin/tazobactam 4.5 g IV every 6 hours Appears to being treated with C. difficile. C. difficile negative this admission Blood cultures 2, no growth Culture 06/22 - C. albicans Off antimicrobials , ID has signed off Prophylaxis - GI -famotidine - DVT - SCD/lovenox Discharge Planning Does not meet LTAC criteria. Dc to [facility] when cleared by Emmanuel Saeed MD Jul 06, 2017 09:03
--- NOTE | 2017-07-06 09:39 | HHI.PR ---
Subjective Subjective Notes Resting in bed No issues overnight Going to Rehab today Objective Vitals/I&O Vital Signs Date Time Temp Pulse Resp B/P (MAP) Pulse Ox O2 Delivery O2 Flow Rate FiO2 07/06/17 08:00 98.3 95 16 127/63 (84) 92 07/02/17 21:34 Nasal Cannula 3.00 Labs Laboratory Tests Test 07/06/17 06:15 White Blood Count 9.6 Red Blood Count 2.99 Hemoglobin 8.2 Hematocrit 25.0 Mean Corpuscular Volume 83.5 Mean Corpuscular Hemoglobin 27.5 Mean Corpuscular Hemoglobin Concent 32.9 Red Cell Distribution Width 18.4 Platelet Count 271 Mean Platelet Volume 9.4 Neutrophils (%) (Auto) 85.0 Lymphocytes (%) (Auto) 9.5 Monocytes (%) (Auto) 4.5 Eosinophils (%) (Auto) 0.5 Basophils (%) (Auto) 0.5 Neutrophils # (Auto) 8.1 Lymphocytes # (Auto) 0.9 Monocytes # (Auto) 0.4 Eosinophils # (Auto) 0.0 Basophils # (Auto) 0.1 CBC Comment DIFF FINAL Differential Comment Blood Urea Nitrogen 20 Creatinine 0.56 Random Glucose 157 Calcium Level 7.7 Magnesium Level 1.7 Sodium Level 141 Potassium Level 3.9 Chloride Level 108 Carbon Dioxide Level 21.2 Anion Gap 12 Estimat Glomerular Filtration Rate 146 Date/Time Source Procedure Growth Status 06/22/17 12:23 Blood Peripheral Aerobic Blood Culture - Final NO GROWTH IN 5 DAYS Complete 06/22/17 12:23 Blood Peripheral Anaerobic Blood Culture - Final NO GROWTH IN 5 DAYS Complete 06/28/17 06:04 Sputum Endotracheal Gram Stain - Final Complete 06/28/17 06:04 Sputum Endotracheal Sputum Culture - Final RARE GROWTH NORMAL RESPIRATORY EUFEMIA Complete 06/22/17 04:20 Urine Catheterized Urine Urine Culture - Final Oumou Albicans Complete Radiology Last Impressions Chest X-Ray 06/28/17 0000 Signed Impressions: Service Date/Time: Wednesday, June 28, 2017 06:05 - CONCLUSION: 1. Endotracheal tube and nasogastric tube in appropriate position. 2. Mild diffuse bilateral airspace consolidation, improved since the prior exam. Forrest Santos MD Upper Extremity Ultrasound 06/25/17 0000 Signed Impressions: Service Date/Time: May 10:22 - CONCLUSION: Normal examination. Forrest Green MD Abdomen/Pelvis CT 06/23/17 0000 Signed Impressions: Service Date/Time: Friday, June 23, 2017 11:40 - CONCLUSION: Pneumoperitoneum worrisome for perforation of hollow viscus. No acute vascular findings. Forrest Green MD Abdomen X-Ray 06/23/17 0000 Signed Impressions: Service Date/Time: Friday, June 23, 2017 10:13 - CONCLUSION: 1. Findings consistent with improving partial small bowel obstruction. Maynor Shepard MD Cardiovascular: Regular Lungs: Clear Abdomen: Other (midline incision with alma delia; colostomy with pink stoma; abd soft non tender ) Extremities: No edema A/P Assessment and Plan 66 year old male s/p exlap; TOR; partial colectomy, takedown of splenic flexure , colostomy -Regular diet -DC alma delia -Pain control -GS clear for DC -Appt set for ThursdayJul 13 at 1PM with Marianne Gonzalez Jul 06, 2017 09:39
[2017-07-06 12:00] VITALS: BP 131/72; PULSE 96; RESP 17; TEMP 97.9; O2SAT 93
== END 2017-07-06 15:13 | DRG 853 ==
LOC: NEPE 00:26 → NEDA 03:55 → N03B 06:36 → N07A 07-03 15:34
PROVIDERS: ADMIT Internal Medicine Critical Care Medicine; ATTEND Internal Medicine
PROC: 0DN60ZZ Release Stomach, Open Approach (ICD-10-PCS; 2017-06-23)
PROC: 0DNA0ZZ Release Jejunum, Open Approach (ICD-10-PCS; 2017-06-23)
PROC: [UNRECOGNIZED PROCEDURE] (2017-06-23)
PROC: 0D1L0Z4 Bypass Transverse Colon to Cutaneous, Open Approach (ICD-10-PCS; 2017-06-23)
PROC: 02HV33Z Insertion of Infusion Device into Superior Vena Cava, Percutaneous Approach (ICD-10-PCS; 2017-06-23)
PROC: 0DBL0ZZ Excision of Transverse Colon, Open Approach (ICD-10-PCS; principal; 2017-06-23 14:02)
PROC: 30233N1 Transfusion of Nonautologous Red Blood Cells into Peripheral Vein, Percutaneous Approach (ICD-10-PCS; 2017-06-25)
PROC: 5A1945Z Respiratory Ventilation, 24-96 Consecutive Hours (ICD-10-PCS; 2017-06-28)
PROC: 0BH17EZ Insertion of Endotracheal Airway into Trachea, Via Natural or Artificial Opening (ICD-10-PCS; 2017-06-28)
DX: A41.9 Sepsis, unspecified organism (principal); G92 Toxic encephalopathy; K63.1 Perforation of intestine (nontraumatic); J81.0 Acute pulmonary edema; J95.821 Acute postprocedural respiratory failure; K55.9 Vascular disorder of intestine, unspecified; J80 Acute respiratory distress syndrome; J95.84 Transfusion-related acute lung injury (TRALI); K65.9 Peritonitis, unspecified; R18.8 Other ascites; K56.50 Intestinal adhesions [bands], unspecified as to partial versus complete obstruction; E46 Unspecified protein-calorie malnutrition; E87.0 Hyperosmolality and hypernatremia; E87.2 Acidosis; I13.0 Hypertensive heart and chronic kidney disease with heart failure and stage 1 through stage 4 chronic kidney disease, or unspecified chronic kidney disease; K56.51 Intestinal adhesions [bands], with partial obstruction; B37.49 Other urogenital candidiasis; J84.10 Pulmonary fibrosis, unspecified; D69.6 Thrombocytopenia, unspecified; I48.91 Unspecified atrial fibrillation; F03.90 Unspecified dementia, unspecified severity, without behavioral disturbance, psychotic disturbance, mood disturbance, and anxiety; E11.22 Type 2 diabetes mellitus with diabetic chronic kidney disease; E83.51 Hypocalcemia; E87.6 Hypokalemia; D64.9 Anemia, unspecified; E78.5 Hyperlipidemia, unspecified; E83.42 Hypomagnesemia; N18.2 Chronic kidney disease, stage 2 (mild); J44.9 Chronic obstructive pulmonary disease, unspecified; F17.210 Nicotine dependence, cigarettes, uncomplicated; F32.9 Major depressive disorder, single episode, unspecified; G62.9 Polyneuropathy, unspecified; E88.09 Other disorders of plasma-protein metabolism, not elsewhere classified; N28.1 Cyst of kidney, acquired; Z79.4 Long term (current) use of insulin; Z95.0 Presence of cardiac pacemaker
CPT/HCPCS: 31500; 36430; 36556; 36600; 71010; 74000; 74174; 74177; 80048; 80053; 80202; 81001; 82140; 82150; 82805; 82947; 82948; 83605; 83690; 83735; 84100; 84132; 84155; 84443; 84478; 84484; 85025; 85027; 85384; 85610; 85730; 86022; 86140; 86850; 86900; 86901; 86920; 87040; 87070; 87086; 87205; 87493; 87641; 88305; 88307; 93005; 93971; 94002; 94003; 94150; 94640; 94664; 96365; 96368; C1765; J0610; J1100; J1120; J1170; J1450; J1644; J1650; J1720; J1815; J1940; J2250; J2270; J2370; J2405; J2543; J3010; J3370; J3475; J3480; J7030; J7050; J7120; J7512; J7613; P9016; P9045; P9047; Q9967

== ENCOUNTER 2017-07-25 13:41 | Inpatient (IN) | payer OTHER, MEDICARE ==
[~2017-07-25] VITALS: Ht 182.9 cm; Wt 57.0 kg
[~2017-07-25 13:41] MED LIST changes: +CALC1TAB12 PO; -CARV3.12 PO; -GABA100C4 PO; -HYDR-3516 PO; +HYDR-3580 PO; -LISI10TA3 PO; -MESA1TAB2 PO; -METR-1 PO; +MULT1TAB46; +NON-325T2 PO; -NOVOLOGP2 SQ; +PRED10 PO; -PRED20 PO; -VANC125C3 PO; -VANC250C2 PO; +VITA250C3 CHEW
[2017-07-25 13:45] VITALS: BP 104/57; PULSE 104; RESP 18; TEMP 98.2; O2SAT 100
[2017-07-25] MEDS ORDERED: SODIUM CHLOR 0.9% 1000 ML INJ 1,000 ML IV ONE ×2 (14:15→15:45)
[2017-07-25] MEDS ORDERED: ACETAMINOPHEN/HYDROcodone 325 MG/5 MG TAB PO ONE (14:15)
--- NOTE | 2017-07-25 14:44 | PD ---
HPI Chief Complaint: General Weakness Time Seen by Provider: 14:06 Travel History International Travel<30 days: No Contact w/Intl Traveler<30days: No Traveled to known affect area: No History of Present Illness HPI 66-year-old male that presents to the ED for evaluation of generalized weakness. Per patient he was just released from [facility] yesterday. Per patient she's been doing okay except that he's been still feeling weak. Patient has used significant history of obstruction with C. difficile and required colostomy placement. Patient was hospitalized for almost 3 months and released to the [facility] from which she was really since yesterday. He states that he has a nurse that comes to his house and came in today and when they were trying to get him up to do some physical therapy patient became pale and very weak. Patient denies any chest pain or shortness of breath. No abdominal pain. Per patient he does have some tailbone pain from an ulcer he developed on his day. Per patient the ulcer has been monitored and per patient and family members seems to be getting better. He states that he takes Lortab for this. He has a significant history of diabetes and states that his sugars have been the 300s consistently. He denies any falls or injuries. Denies any blood in his stool. Per patient she's been producing stool on his colostomy but no changes in the stool. Per patient usually diarrhea. He again denies any pain to the abdomen but states having some pain to the back pain on the back there is 6 out of 10 and is chronic. Has not change. He has a history of pacemaker placement secondary to arrhythmia. He takes no blood thinners. He states that he's been eating and drinking okay although his appetite has been reduced. PFSH Past Medical History Arthritis: Yes Autoimmune Disease: No Heart Rhythm Problems: Yes (PACEMAKER) Cancer: No Cardiovascular Problems: Yes (PACER) High Cholesterol: Yes Coronary Artery Disease: Yes Diabetes: Yes (TYPE 1) Patient Takes Glucophage: No Diminished Hearing: No Endocrine: Yes Gastrointestinal Disorders: Yes Genitourinary: No Hypertension: Yes Immune Disorder: No Implanted Vascular Access Dvce: Yes Musculoskeletal: Yes (RIGHT LEG FRACTURE) Neurologic: No Psychiatric: No Reproductive: No Respiratory: Yes Immunizations Current: Yes Thyroid Disease: No Past Surgical History Pacemaker: Yes Thoracic Surgery: Yes (RIGHT CT PLACEMENT FOR PNEUMO S/P RIB FX) Social History Alcohol Use: No (SOCIAL ) Tobacco Use: Yes (1PPD) Substance Use: No Allergies-Medications (Allergen,Severity, Reaction): Coded Allergies: No Known Allergies (Unverified Adverse Reaction, Unknown, 07/25/17) Reported Meds & Prescriptions Reported Meds & Active Scripts Active Levemir Inj (Insulin Detemir) 1,000 unit/ 10 ML Vial 5 Units SQ Q12HR Do not mix with any other Insulin. Hydrocodone-Acetamin 7.5-325 (Hydrocodone/Acetaminophen) 7.5 Mg-325 Mg Tablet 1 Tab PO Q6H PRN 12 Days Famotidine 20 Mg Tab 20 Mg PO BID Reported Prednisone 5 Mg Tab 5 Mg PO DAILY Vitamin C (Ascorbic Acid) 250 Mg Chew 500 Mg CHEW BID Multi Vitamin Daily (Multiple Vitamin) 1 Tab Tab Calcium 500 +D (Calcium Carbonate-Cholecalciferol) 500-400 Mg-Unit Tab 1 Tab PO DAILY Novolin R Inj (Insulin Human Regular) 1,000 Unit/10 Ml Vial 0 SQ DIRECTED Sliding Scale As Directed. Non-Aspirin (Acetaminophen) 325 Mg Tab 325 Mg PO Q4-6H PRN Aricept (Donepezil) 23 Mg Tab 5 Mg PO HS Do not split, crushed or chewed. Fluoxetine (Fluoxetine HCl) 40 Mg Cap 40 Cap PO DAILY Review of Systems Except as stated in HPI: all other systems reviewed are Neg Physical Exam Narrative GENERAL: SKIN: Warm and dry. Very cachectic. Patient has a stage II/3 decubitus ulcer on the sacrum area. [place] coloration of the skin but no sign of discharge or erythema. HEAD: Atraumatic. Normocephalic. EYES: Pupils equal and round. No scleral icterus. No injection or drainage. ENT: No nasal bleeding or discharge. Mucous membranes pink and moist. Tongue is midline. No uvula deviation. NECK: Trachea midline. No JVD. CARDIOVASCULAR: Regular rate and rhythm. No murmurs, S3, S4. RESPIRATORY: No accessory muscle use. Clear to auscultation. Breath sounds equal bilaterally. GASTROINTESTINAL: Abdomen soft, non-tender, nondistended. Hepatic and splenic margins not palpable. MUSCULOSKELETAL: Extremities without clubbing, cyanosis, or edema. No obvious deformities. Full range of motion of the upper and lower extremities bilaterally. 2+ pulses bilaterally. NEUROLOGICAL: Awake and alert. No obvious cranial nerve deficits. Motor grossly within normal limits. Five out of 5 muscle strength in the arms and legs. Normal speech. PSYCHIATRIC: Appropriate mood and affect; insight and judgment normal. Data Data Last Documented VS Vital Signs Date Time Temp Pulse Resp B/P (MAP) Pulse Ox O2 Delivery O2 Flow Rate FiO2 07/25/17 16:12 81 21 108/65 (79) 87 25 83/55 (64) 89 25 87/55 (66) 07/25/17 13:45 98.2 100 Room Air Orders Orders Electrocardiogram (07/25/17 14:14) Complete Blood Count With Diff (07/25/17 14:14) Comprehensive Metabolic Panel (07/25/17 14:14) Creatine Kinase (Cpk) (07/25/17 14:14) Prothrombin Time / Inr (Pt) (07/25/17 14:14) Act Partial Throm Time (Ptt) (07/25/17 14:14) Blood Culture (07/25/17 14:14) Lipase (07/25/17 14:14) Urinalysis - C+S If Indicated (07/25/17 14:14) Magnesium (Mg) (07/25/17 14:14) Thyroid Stimulating Hormone (07/25/17 14:14) C Diff Toxin Pcr (07/25/17 14:14) Chest, Single Ap (07/25/17 14:14) Iv Access Insert/Monitor (07/25/17 14:14) Sodium Chlor 0.9% 1000 Ml Inj (Ns 1000 M (07/25/17 14:15) Lactic Acid Sepsis Protocol (07/25/17 14:14) Acetamin-Hydrocod 325-5 Mg (Elroy 5-325 (07/25/17 14:15) Orthostatic Vital Signs (07/25/17 14:18) Sodium Chlor 0.9% 1000 Ml Inj (Ns 1000 M (07/25/17 15:45) Admit Order (Ed Use Only) (07/25/17 16:45) Labs Laboratory Tests Test 07/25/17 14:38 07/25/17 16:00 White Blood Count 9.8 TH/MM3 Red Blood Count 3.71 MIL/MM3 Hemoglobin 10.3 GM/DL Hematocrit 31.8 % Mean Corpuscular Volume 85.6 FL Mean Corpuscular Hemoglobin 27.6 PG Mean Corpuscular Hemoglobin Concent 32.3 % Red Cell Distribution Width 17.8 % Platelet Count 293 TH/MM3 Mean Platelet Volume 8.7 FL Neutrophils (%) (Auto) 82.3 % Lymphocytes (%) (Auto) 11.4 % Monocytes (%) (Auto) 5.0 % Eosinophils (%) (Auto) 0.2 % Basophils (%) (Auto) 1.1 % Neutrophils # (Auto) 8.1 TH/MM3 Lymphocytes # (Auto) 1.1 TH/MM3 Monocytes # (Auto) 0.5 TH/MM3 Eosinophils # (Auto) 0.0 TH/MM3 Basophils # (Auto) 0.1 TH/MM3 CBC Comment DIFF FINAL Differential Comment Prothrombin Time 10.1 SEC Prothromb Time International Ratio 1.0 RATIO Activated Partial Thromboplast Time 23.5 SEC Blood Urea Nitrogen 38 MG/DL Creatinine 0.88 MG/DL Random Glucose 329 MG/DL Total Protein 6.2 GM/DL Albumin 2.0 GM/DL Calcium Level 8.5 MG/DL Magnesium Level 1.7 MG/DL Alkaline Phosphatase 140 U/L Aspartate Amino Transf (AST/SGOT) 20 U/L Alanine Aminotransferase (ALT/SGPT) 24 U/L Total Bilirubin 0.2 MG/DL Sodium Level 136 MEQ/L Potassium Level 4.8 MEQ/L Chloride Level 106 MEQ/L Carbon Dioxide Level 20.4 MEQ/L Anion Gap 10 MEQ/L Estimat Glomerular Filtration Rate 86 ML/MIN Lactic Acid Level 3.1 mmol/L Total Creatine Kinase 43 U/L Lipase 115 U/L Thyroid Stimulating Hormone 3rd Gen 1.250 uIU/ML Urine Color YELLOW Urine Turbidity CLEAR Urine pH 5.5 Urine Specific [place] 1.019 Urine Protein 30 mg/dL Urine Glucose (UA) 300 mg/dL Urine Ketones NEG mg/dL Urine Occult Blood NEG Urine Nitrite NEG Urine Bilirubin NEG Urine Urobilinogen LESS THAN 2.0 MG/DL Urine Leukocyte Esterase NEG Urine RBC LESS THAN 1 /hpf Urine WBC 1 /hpf Urine Amorphous Sediment RARE Urine Hyaline Casts 6 /lpf Urine Mucus FEW /lpf Microscopic Urinalysis Comment CULT NOT INDICATED MDM Medical Decision Making Medical Screen Exam Complete: Yes Emergency Medical Condition: Yes Medical Record Reviewed: Yes Interpretation(s) CBC & BMP Diagram 07/25/17 14:38 Total Protein 6.2 L, Albumin 2.0 L, Calcium Level 8.5, Magnesium Level 1.7, Alkaline Phosphatase 140 H, Aspartate Amino Transf (AST/SGOT) 20, Alanine Aminotransferase (ALT/SGPT) 24, Total Bilirubin 0.2 lactic acid elevated Last Impressions Chest X-Ray 07/25/17 1414 Signed Impressions: Service Date/Time: Thursday, July 25, 2017 14:46 - CONCLUSION: No acute cardiopulmonary disease. Taylor Crane MD EKG shows sinus rhythm with no sign of acute ischemia or arrhythmia with me and attending. Differential Diagnosis Sepsis versus diabetes versus dehydration versus orthostatic hypotension versus placement versus C. difficile versus malnourishment Narrative Course 66-year-old male that presents to the ED for evaluation of weakness and episode of possible syncope. Patient was properly examined and was found to have signs and symptoms of unclear etiology at this time. Definite concerning for sepsis. Patient does appear to be somewhat malnourished from chronic illness and recent admission. Labs and imaging were ordered. Labs and imaging showed acute kidney injury as well as what appears to be dehydration and lactic acidosis. Patient does have positive orthostatics with symptoms. Case discussed with my attending who agrees with plan. Patient will be admitted for further evaluation of this. Patient of having a with this. Patient was admitted to Dr. Garcia who agrees to admission. Diagnosis Primary Impression: Orthostatic hypotension Additional Impressions: EDGARDO (acute kidney injury) Dehydration Malnourished Qualified Codes: E43 - Unspecified severe protein-calorie malnutrition Admitting Information Admitting Physician Requests: Admit Thien Brown Jul 25, 2017 14:44
[2017-07-25 15:27] LABS: AUTOMATED NEUTROPHIL # 8.1 TH/MM3 (1.8-7.7); BASOPHIL # 0.1 TH/MM3 (0-0.2); BASOPHIL % 1.1 % (0.0-2.0); EOSINOPHIL % 0.2 % (0.0-4.0); HEMATOCRIT 31.8 % (39.0-51.0); HEMOGLOBIN 10.3 GM/DL (13.0-17.0); LYMPH % 11.4 % (9.0-44.0); LYMPHOCYTE # 1.1 TH/MM3 (1.0-4.8); MEAN CELL VOLUME 85.6 FL (80.0-100.0); MEAN CORPUSCULAR HEMOGLOBIN 27.6 PG (27.0-34.0); MEAN CORPUSCULAR HGB CONC 32.3 % (32.0-36.0); MEAN PLATELET VOLUME 8.7 FL (7.0-11.0); MONOCYTE # 0.5 TH/MM3 (0-0.9); NEUT % 82.3 % (16.0-70.0); PLATELET COUNT 293 TH/MM3 (150-450); RED BLOOD COUNT 3.71 MIL/MM3 (4.50-5.90); RED CELL DISTRIBUTION WIDTH 17.8 % (11.6-17.2); WHITE BLOOD COUNT 9.8 TH/MM3 (4.0-11.0)
[2017-07-25 15:31] LABS: LACTIC ACID SEPSIS PROTOCOL 3.1 mmol/L (0.4-2.0)
[2017-07-25 15:50] LABS: AST (GOT) 20 U/L (15-37); BICARBONATE 20.4 MEQ/L (21.0-32.0); BLOOD UREA NITROGEN 38 MG/DL (7-18); CALCIUM 8.5 MG/DL (8.5-10.1); CHLORIDE 106 MEQ/L (98-107); CREATININE 0.88 MG/DL (0.60-1.30); GLOMERULAR FILTRATION RATE 86 ML/MIN (>89); GLUCOSE,RANDOM 329 MG/DL (74-106); LIPASE 115 U/L (73-393); MAGNESIUM 1.7 MG/DL (1.5-2.5); SODIUM (NA) 136 MEQ/L (136-145)
--- NOTE | 2017-07-25 15:50 | RADRPT ---
EXAM DATE/TIME: 07/25/2017 14:46 [facility] COMPARISON: CHEST SINGLE AP, October 08, 2015, 9:45. CHEST SINGLE AP, June 28, 2017, 6:05. INDICATIONS : Fever and shortness of breath. MEDICAL HISTORY : Chronic obstructive pulmonary disease. Cardiovascular disease. Hypercholesterolemia. HTN, CAD, Diabet es. SURGICAL HISTORY : Pacemaker. ENCOUNTER: Initial ACUITY: 3 days PAIN SCORE: 0/10 LOCATION: chest FINDINGS: The lungs are clear without infiltrate, nodule, or mass. There is no appreciable pleural effusion fo r technique. Heart and mediastinum are unremarkable. Left subclavian transvenous pacer wires are pre sent with tips in the right atrium and right ventricle. Calcified granuloma right upper lobe has not changed. CONCLUSION: No acute cardiopulmonary disease. Taylor Crane MD on July 25, 2017 at 15:47 Board Certified Radiologist. This report was verified electronically.
[2017-07-25 15:54] LABS: ALKALINE PHOSPHATASE 140 U/L (45-117); ALT (GPT) 24 U/L (12-78); TOTAL BILIRUBIN ADULT 0.2 MG/DL (0.2-1.0); TOTAL PROTEIN 6.2 GM/DL (6.4-8.2)
[2017-07-25 16:02] LABS: PROTHROMBIN TIME - PATIENT 10.1 SEC (9.8-11.6)
[2017-07-25 16:12] VITALS: BP_SYST 108; BP_SYST 83; BP_SYST 87; BP_DIAS 55; BP_DIAS 65; RESP 21; RESP 25
[2017-07-25] MEDS ORDERED: PRED5TAB PO (16:22)
[2017-07-25 16:58] LABS: AMORPHOUS SEDIMENT, URINE RARE; BILIRUBIN, URINE NEG (NEG); BLOOD, URINE NEG (NEG); GLUCOSE,URINE 300 mg/dL (NEG); HYALINE CAST, URINE 6 /lpf (RARE); KETONE, URINE NEG (NEG); MUCUS URINE FEW /lpf (OCC); NITRITE,URINE NEG (NEG); PH, URINE 5.5 (5.0-8.5); URINE COLOR YELLOW (YELLW/STRAW); URINE LEUKOCYTE ESTERASE NEG (NEG)
[2017-07-25] MEDS ORDERED: SENNOSIDES 8.6 MG TAB PO PRN (17:00)
[2017-07-25] MEDS ORDERED: NALOXONE HCL 0.4 MG/ML AMP IV PUSH PRN (17:00)
[2017-07-25] MEDS ORDERED: MAGNESIUM HYDROXIDE SUSP 30 ML CUP PO PRN (17:00)
[2017-07-25] MEDS ORDERED: BISACODYL 10 MG SUPP RECTAL PRN (17:00)
[2017-07-25] MEDS ORDERED: LACTULOSE SYRUP 20 GM/30 ML CUP PO PRN (17:00)
[2017-07-25] MEDS ORDERED: SODIUM CHLORIDE 0.9% FLUSH 10 ML FLUSH IV FLUSH PRN (17:00)
--- NOTE | 2017-07-25 17:05 | HHI.HP ---
[facility] Primary Care Physician Unknown Admission Diagnosis Diagnoses: Travel History International Travel<30 Days: No Contact w/Intl Traveler <30 Da: No Traveled to Known Affected Are: No History of Present Illness 66 yo male with medical history significant for HTN, DM, decubitis ulcer presents for pre-syncope. His medical history significant for recent hospitalization for bowel obstruction requiring colostomy placement in April and then again in May. Hospital was complicated by C. difficile. During last hospitalization patient was admitted to the [facility]. Surgical intervention was done by Dr. Soares. The patient was discharged on July 06 to [facility]. Per family patient was doing okay there but continued to have weakness, especially when he attempted to ambulate. The patient was discharged from [facility] yesterday home. Today nurse came to do some physical therapy, upon standing he became very weak, pale, and looked like he was going to pass out. This is when the patient was brought to the ER. Per family the patient has not been eating well and has lost a significant amount of weight since discharge. The patient does have a decubitus ulcer which appears to be chronic. He has been producing stool in the colostomy with no significant changes in the stool. The patient's family reports that there is been consideration for PEG tube placement. In the ER the patient's lab were significant for lactic acid of 3.1, random glucose 329, and he had positive orthostatics. The patient denies abdominal pain, dysuria, nausea, or vomiting. Reports he does not feel sick like he did at prior admissions. He did not like the food at [facility] so has mainly been drinking ensure shakes. He reports his blood sugars were all over the place, and was concerned he was being given insulin when his blood sugar was too low. He reports ulcer on his bottom, denies drainage, states its taking a while to heal because of his poor weight. No other concerns at this time. Was previously on prednisone but reports he completed it. Review of Systems Constitutional: COMPLAINS OF: Weight loss, Change in appetite, DENIES: Chills, Dizziness Eyes: DENIES: Blurred vision, Vision loss Ears, nose, mouth, throat: DENIES: Vertigo Respiratory: DENIES: Cough, Shortness of breath Cardiovascular: DENIES: Chest pain, Palpitations, Lower Extremity Edema Gastrointestinal: COMPLAINS OF: Diarrhea, DENIES: Nausea, Vomiting Genitourinary: DENIES: Urinary frequency, Urinary incontinence, Hematuria, Dysuria Musculoskeletal: COMPLAINS OF: Back pain, Neck pain Hematologic/lymphatic: DENIES: Bruising Neurologic: COMPLAINS OF: Abnormal gait, Localized weakness, Poor Balance Psychiatric: DENIES: Mood changes Past Family Social History Past Medical History HTN HLD Pacemaker placement Arrythmia, third-degree AV block Depression Ulcerative colitis Mom bowel obstruction requiring surgical intervention with colostomy Past Surgical History bowel resection May 2017 Allergies: Coded Allergies: No Known Allergies (Unverified Adverse Reaction, Unknown, 07/25/17) Active Ordered Medications Levemir Inj (Insulin Detemir) 1,000 unit/ 10 ML Vial 5 Units SQ Q12HR Do not mix with any other Insulin. Hydrocodone-Acetamin 7.5-325 (Hydrocodone/Acetaminophen) 7.5 Mg-325 Mg Tablet 1 Tab PO Q6H PRN 12 Days Famotidine 20 Mg Tab 20 Mg PO BID Reported Prednisone 5 Mg Tab 5 Mg PO DAILY Vitamin C (Ascorbic Acid) 250 Mg Chew 500 Mg CHEW BID Multi Vitamin Daily (Multiple Vitamin) 1 Tab Tab Calcium 500 +D (Calcium Carbonate-Cholecalciferol) 500-400 Mg-Unit Tab 1 Tab PO DAILY Novolin R Inj (Insulin Human Regular) 1,000 Unit/10 Ml Vial 0 SQ DIRECTED Sliding Scale As Directed. Non-Aspirin (Acetaminophen) 325 Mg Tab 325 Mg PO Q4-6H PRN Aricept (Donepezil) 23 Mg Tab 5 Mg PO HS Do not split, crushed or chewed. Fluoxetine (Fluoxetine HCl) 40 Mg Cap 40 Cap PO DAILY Family History Father, mother, brother with heart disease. Social History Smokes one pack a day. Drinks alcohol socially. Physical Exam Vital Signs Vital Signs Date Time Temp Pulse Resp B/P (MAP) Pulse Ox O2 Delivery O2 Flow Rate FiO2 07/25/17 16:12 81 21 108/65 (79) 87 25 83/55 (64) 89 25 87/55 (66) 07/25/17 13:45 98.2 104 18 104/57 (73) 100 Room Air Physical Exam GENERAL: Thin appearing male, nad. SKIN: Decubitus ulcer on sacrum, freshly dressed, no drainage noted HEAD: Atraumatic. Normocephalic. No temporal or scalp tenderness. EYES: Pupils equal round and reactive. Extraocular motions intact. No scleral icterus. No injection or drainage. ENT: Nose without bleeding, purulent drainage or septal hematoma. Throat without erythema, tonsillar hypertrophy or exudate. Uvula midline. Airway patent. NECK: Trachea midline. No JVD or lymphadenopathy. Supple, nontender, no meningeal signs. CARDIOVASCULAR: Regular rate and rhythm without murmurs, gallops, or rubs. RESPIRATORY: Clear to auscultation. Breath sounds equal bilaterally. No wheezes , rales, or rhonchi. GASTROINTESTINAL: Abdomen soft, non-tender, nondistended. Colostomy present with liquid stool and gas in bag. MUSCULOSKELETAL: Extremities without clubbing, cyanosis, or edema. No joint tenderness, effusion, or edema noted. No calf tenderness. NEUROLOGICAL: Awake and alert. Motor and sensory grossly within normal limits. Normal speech. He is able to roll over independently. Laboratory Laboratory Tests Test 07/25/17 14:38 07/25/17 16:00 White Blood Count 9.8 Red Blood Count 3.71 Hemoglobin 10.3 Hematocrit 31.8 Mean Corpuscular Volume 85.6 Mean Corpuscular Hemoglobin 27.6 Mean Corpuscular Hemoglobin Concent 32.3 Red Cell Distribution Width 17.8 Platelet Count 293 Mean Platelet Volume 8.7 Neutrophils (%) (Auto) 82.3 Lymphocytes (%) (Auto) 11.4 Monocytes (%) (Auto) 5.0 Eosinophils (%) (Auto) 0.2 Basophils (%) (Auto) 1.1 Neutrophils # (Auto) 8.1 Lymphocytes # (Auto) 1.1 Monocytes # (Auto) 0.5 Eosinophils # (Auto) 0.0 Basophils # (Auto) 0.1 CBC Comment DIFF FINAL Differential Comment Prothrombin Time 10.1 Prothromb Time International Ratio 1.0 Activated Partial Thromboplast Time 23.5 Blood Urea Nitrogen 38 Creatinine 0.88 Random Glucose 329 Total Protein 6.2 Albumin 2.0 Calcium Level 8.5 Magnesium Level 1.7 Alkaline Phosphatase 140 Aspartate Amino Transf (AST/SGOT) 20 Alanine Aminotransferase (ALT/SGPT) 24 Total Bilirubin 0.2 Sodium Level 136 Potassium Level 4.8 Chloride Level 106 Carbon Dioxide Level 20.4 Anion Gap 10 Estimat Glomerular Filtration Rate 86 Lactic Acid Level 3.1 Total Creatine Kinase 43 Lipase 115 Thyroid Stimulating Hormone 3rd Gen 1.250 Date/Time Source Procedure Growth Status 07/25/17 14:44 Blood Peripheral Aerobic Blood Culture Pending Received 07/25/17 14:44 Blood Peripheral Anaerobic Blood Culture Pending Received Result Diagram: 07/25/17 1438 07/25/17 1438 Imaging Last Impressions Chest X-Ray 07/25/17 1414 Signed Impressions: Service Date/Time: Tuesday, July 25, 2017 14:46 - CONCLUSION: No acute cardiopulmonary disease. MD Lynsey Garcia VTE Risk Assessment Caprinalberto VTE Risk Assessment: No/Low Risk (score <= 1) Caprini Risk Assessment Model Point Value = 1 Point Value = 2 Point Value = 3 Point Value = 5 Age 41-60 Minor surgery BMI > 25 kg/m2 Swollen legs Varicose veins or History of unexplained or recurrent spontaneous Oral contraceptives or hormone replacement Sepsis (< 1 month) Serious lung disease, including pneumonia (< 1 month) Abnormal pulmonary function Acute myocardial infarction Congestive heart failure (< 1 month) History of inflammatory bowel disease Medical patient at bed rest Age 61-74 Arthroscopic surgery Major open surgery (> 45 min) Laparoscopic surgery (> 45 min) Malignancy Confined to bed (> 72 hours) Immobilizing plaster cast Central venous access Age >= 75 History of VTE Family history of VTE Factor V Leiden Prothrombin [id number] Lupus anticoagulant Anticardiolipin antibodies Elevated serum homocysteine Heparin-induced thrombocytopenia Other congenital or acquired thrombophilia Stroke (< 1 month) Elective arthroplasty Hip, pelvis, or leg fracture Acute spinal cord injury (< 1 month) Prophylaxis Regimen Total Risk Factor Score Risk Level Prophylaxis Regimen 0-1 Low Early ambulation 2 Moderate Order ONE of the following: *Sequential Compression Device (SCD) *Heparin 5000 units SQ BID 3-4 Higher Order ONE of the following medications: *Heparin 5000 units SQ TID *Enoxaparin/Lovenox 40 mg SQ daily (WT < 150 kg, CrCl > 30 mL/min) *Enoxaparin/Lovenox 30 mg SQ daily (WT < 150 kg, CrCl > 10-29 mL/min) *Enoxaparin/Lovenox 30 mg SQ BID (WT < 150 kg, CrCl > 30 mL/min) AND/OR *Sequential Compression Device (SCD) 5 or more Highest Order ONE of the following medications: *Heparin 5000 units SQ TID (Preferred with Epidurals) *Enoxaparin/Lovenox 40 mg SQ daily (WT < 150 kg, CrCl > 30 mL/min) *Enoxaparin/Lovenox 30 mg SQ daily (WT < 150 kg, CrCl > 10-29 mL/min) *Enoxaparin/Lovenox 30 mg SQ BID (WT < 150 kg, CrCl > 30 mL/min) AND *Sequential Compression Device (SCD) Assessment and Plan Problem List: (1) Lactic acidosis ICD Code: E87.2 - Acidosis (2) DM (diabetes mellitus) ICD Code: E11.9 - Type 2 diabetes mellitus without complications Status: Chronic (3) HTN (hypertension) ICD Code: I10 - Essential (primary) hypertension Status: Chronic (4) Malnourished ICD Code: E46 - Unspecified protein-calorie malnutrition Status: Acute (5) Orthostatic hypotension ICD Code: I95.1 - Orthostatic hypotension Status: Acute Assessment and Plan 66-year-old male with Status post bowel resection with colostomy - Colostomy with stool - Consulted Dr. Soares Deconditioning & Weight Loss - PT - Dietary consult - Ensure with each meal Orthostatic hypotension - Patient noted per family to have significant decrease in by mouth intake - IV fluids - PT and OT eval - We'll likely require rehabilitation Lactic acidosis - Unclear etiology at this time, but the patient did present twice in the last 3 months with sepsis - Lactic acidosis protocol - Obtain blood cultures - UA is pending, chest x-rays clear - Patient overall looks well so I will hold on abx at this time, if UA is positive then will treat accordingly Depression - Continue home fluoxetine Diabetes - reports taking levemir 10 units BID with supplemental scale at home - will initiate 5 units tonight, cover with sliding scale, and adjust based on need - diabetic diet Chronic Decubitus Ulcer - wound care Case Management consulted for assistance with placement DVT prophy Continue home famotidine Code Status Full Discussed Condition With Thien Brown ED and floor nurse Physician Certification 2 Midnight Certification Type: Admission for Inpatient Services Order for Inpatient Services The services are ordered in accordance with Medicare regulations or non- Medicare payer requirements, as applicable. In the case of services not specified as inpatient-only, they are appropriately provided as inpatient services in accordance with the 2-midnight benchmark. Estimated LOS (days): 3 days is the estimated time the patient will need to remain in the hospital, assuming treatment plan goals are met and no additional complications. Post-Hospital Plan: Not yet determined Problem Qualifiers (1) Malnourished: Qualified Codes: E43 - Unspecified severe protein-calorie malnutrition Tanisha Garcia MD Jul 25, 2017 17:05
[2017-07-25 18:45] VITALS: BP 121/64; PULSE 64; RESP 16; TEMP 97.5; O2SAT 100
[2017-07-25] MEDS: SODIUM CHLOR 0.45% 1000 ML INJ 1,000 ML IV SCH (18:49)
[2017-07-25 20:05] VITALS: BP 133/72; PULSE 75; RESP 16; TEMP 98.4; O2SAT 100
[2017-07-25] MEDS: DOCUSATE SODIUM 50 MG/SENNA 8.6 MG TAB PO SCH (21:00)
[2017-07-25] MEDS: DONEPEZIL HCL 5 MG TAB PO SCH (21:04)
[2017-07-25] MEDS: INSULIN DETEMIR 100 UNITS/ML VIAL SQ SCH (21:06)
[2017-07-25] MEDS: INSULIN ASPART SUPPLEMENTAL SCALE SQ SCH (21:07)
[2017-07-25] MEDS: SODIUM CHLORIDE 0.9% FLUSH 10 ML FLUSH IV FLUSH SCH (21:07)
[2017-07-25] MEDS: ACETAMINOPHEN/HYDROcodone 325 MG/5 MG TAB PO PRN (21:39)
--- NOTE | 2017-07-25 21:57 | EKG ---
Date Performed: 07/25/2017 Time Performed: 15:36:02 PTAGE: 66 years EKG: Sinus rhythm POSSIBLE LEFT ATRIAL ENLARGEMENT INTRAVENTRICULAR CONDUCTION DELAY LEFT VENTRICULAR HYPERTROPHY AND ST-T CHANGE INFERIOR MYOCARDIAL INFARCTION ABNORMAL ECG PREVIOUS TRACING : 06/27/2017 08.52 Compared to the previous tracing, now in sinus rhythm DOCTOR: Payam Jordan Interpretating Date/Time 07/25/2017 21:56:35
[2017-07-26] VITALS: BP 116/65; PULSE 78; RESP 20; TEMP 98.1; O2SAT 99
[2017-07-26 04:00] VITALS: BP 123/62; PULSE 80; RESP 20; TEMP 97.8; O2SAT 99
[2017-07-26] MEDS: ACETAMINOPHEN/HYDROcodone 325 MG/5 MG TAB PO PRN ×3 (05:35→17:10)
[2017-07-26] MEDS: SODIUM CHLOR 0.45% 1000 ML INJ 1,000 ML IV SCH ×2 (05:35→17:20)
[2017-07-26 08:04] LABS: AUTOMATED NEUTROPHIL # 10.1 TH/MM3 (1.8-7.7); BASOPHIL # 0.1 TH/MM3 (0-0.2); BASOPHIL % 0.9 % (0.0-2.0); EOSINOPHIL # 0.1 TH/MM3 (0-0.4); EOSINOPHIL % 0.6 % (0.0-4.0); HEMATOCRIT 30.2 % (39.0-51.0); HEMOGLOBIN 9.6 GM/DL (13.0-17.0); MEAN CELL VOLUME 85.3 FL (80.0-100.0); MEAN CORPUSCULAR HEMOGLOBIN 27.2 PG (27.0-34.0); MEAN CORPUSCULAR HGB CONC 31.8 % (32.0-36.0); MEAN PLATELET VOLUME 8.2 FL (7.0-11.0); MONO % 5.9 % (0.0-8.0); MONOCYTE # 0.8 TH/MM3 (0-0.9); NEUT % 77.6 % (16.0-70.0); PLATELET COUNT 300 TH/MM3 (150-450); RED BLOOD COUNT 3.54 MIL/MM3 (4.50-5.90); RED CELL DISTRIBUTION WIDTH 17.9 % (11.6-17.2)
[2017-07-26 08:08] VITALS: BP 124/68; PULSE 93; RESP 16; TEMP 98.6; O2SAT 100
[2017-07-26 08:31] LABS: BICARBONATE 21.5 MEQ/L (21.0-32.0); CALCIUM 8.2 MG/DL (8.5-10.1); CREATININE 0.43 MG/DL (0.60-1.30)
[2017-07-26] MEDS ORDERED: NALOXONE HCL 0.4 MG/ML AMP IV PUSH PRN (08:45)
[2017-07-26] MEDS ORDERED: ACETAMINOPHEN 325 MG TAB PO PRN (08:45)
[2017-07-26] MEDS: DOCUSATE SODIUM 50 MG/SENNA 8.6 MG TAB PO SCH ×2 (09:00→21:00)
[2017-07-26] MEDS: SODIUM CHLORIDE 0.9% FLUSH 10 ML FLUSH IV FLUSH SCH ×2 (09:00→21:34)
[2017-07-26] MEDS: FLUoxetine HCL 20 MG CAP PO SCH (09:13)
[2017-07-26] MEDS: INSULIN ASPART SUPPLEMENTAL SCALE SQ SCH ×4 (09:15→21:35)
--- NOTE | 2017-07-26 11:24 | HHI.PR ---
Subjective Remarks As a poor appetite as continued for the past month. Denies any chest pain or shortness of breath. Denies any abdominal pain. Objective Vital Signs Date Time Temp Pulse Resp B/P (MAP) Pulse Ox O2 Delivery O2 Flow Rate FiO2 07/26/17 08:08 98.6 93 16 124/68 (86) 100 07/26/17 04:00 97.8 80 20 123/62 (82) 99 07/26/17 00:00 98.1 78 20 116/65 (82) 99 07/25/17 20:05 98.4 75 16 133/72 (92) 100 07/25/17 18:45 97.5 64 16 121/64 (83) 100 07/25/17 18:12 07/25/17 16:12 81 21 108/65 (79) 87 25 83/55 (64) 89 25 87/55 (66) 07/25/17 13:45 98.2 104 18 104/57 (73) 100 Room Air I/O 07/25/17 07/25/17 07/25/17 07/26/17 07/26/17 07/26/17 07:00 15:00 23:00 07:00 15:00 23:00 Intake Total 1000 ml 60 ml Output Total 400 ml Balance 1000 ml -340 ml Intake Oral 60 ml IV Total 1000 ml Output Urine Total 400 ml # Voids 2 # Bowel Movements 0 Result Diagram: 07/26/1771407/26/17714 Objective Remarks GENERAL: Patient lying in bed on right side. Appears comfortable. SKIN: Warm and dry. HEAD: Normocephalic. EYES: No scleral icterus. No injection or drainage. NECK: Supple, trachea midline. No JVD. CARDIOVASCULAR: Regular rate and rhythm without murmurs, gallops, or rubs. RESPIRATORY: Breath sounds equal bilaterally. No accessory muscle use. GASTROINTESTINAL: Abdomen soft, non-tender, nondistended. Colostomy without any surrounding erythema or leakage. Abdomen nontender. MUSCULOSKELETAL: No cyanosis, or edema. Stage II sacral ulcer with minimal surrounding erythema. BACK: Nontender without obvious deformity. No CVA tenderness. A/P Assessment and Plan 66-year-old male with //Status post bowel resection with colostomy - Colostomy with stool - Consulted Dr. Soares. 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 //Sepsis by criteria -leukocytosis 13, tachycardia -Positive C. difficile. Start by mouth vancomycin. Consult for recurrent C. difficile. //Deconditioning & Weight Loss - PT - Dietary consult - Ensure with each meal = 25 pound weight loss over the past month. Start Marinol. Start supplementation. //Orthostatic hypotension - Patient noted per family to have significant decrease in by mouth intake - IV fluids - PT and OT eval - We'll likely require rehabilitation //Lactic acidosis - Unclear etiology at this time, but the patient did present twice in the last 3 months with sepsis - Lactic acidosis protocol - Obtain blood cultures - UA is pending, chest x-rays clear - Patient overall looks well so I will hold on abx at this time, if UA is positive then will treat accordingly = Resolved. //Depression - Continue home fluoxetine //Diabetes - reports taking levemir 10 units BID with supplemental scale at home - will initiate 5 units tonight, cover with sliding scale, and adjust based on need - diabetic diet = Some low glucose this morning. Hopefully will improve with appetite stimulation. Came on her //Chronic Decubitus Ulcer - wound care //Case Management consulted for assistance with placement DVT prophy Continue home famotidine Discharge Planning Patient with very poor appetite. pending improvement. Rolo Marcos MD Jul 26, 2017 11:24
--- NOTE | 2017-07-26 11:30 | MB ---
cc: AMY JOSEPH DATE OF CONSULTATION: 07/26/2017 REASON FOR CONSULTATION: Recent colectomy. HISTORY OF PRESENT ILLNESS: Mr. Gutierrez is a very pleasant 66-year-old gentleman who was readmitted to the hospital yesterday for generalized weakness. According to the patient he was at home doing home health with the nurse when she noticed he was pale and weak. She advised him to go to the emergency department to have some blood work drawn. Apparently he was seen and evaluated in the emergency department and then admitted for observation. The patient reports no symptoms other than overall he is weak and tired. He states he is tolerating a diet and his ostomy is working well. He denied any abdominal pain whatsoever. As stated, the patient denies any abdominal pain. He states his ostomy is working well and he is having no symptoms other than generalized weakness. He denies any fever or chills. He denies any nausea and vomiting. He denies any productive cough. PAST MEDICAL HISTORY: 1. Hypertension. 2. Cardiac arrhythmia. 3. Depression. 4. Ulcerative colitis. PAST SURGICAL HISTORY He underwent exploratory laparotomy, lysis of adhesions, partial colectomy and takedown of splenic flexure, colostomy by Dr. Soares and myself for perforated stricture. He had a prolonged hospitalization and was recently discharged to rehab. MEDICATIONS Please see chart. ALLERGIES He has no known drug allergies. SOCIAL HISTORY He was recently in rehab but now is discharged home with home health care. FAMILY HISTORY Noncontributory. PHYSICAL EXAMINATION VITAL SIGNS: Temperature is 98, pulse is 80, blood pressure is 120/60, respiratory rate 20. GENERAL: The patient is a pleasant, thin, chronically ill-appearing gentleman watching television in no distress whatsoever. HEENT: Pupils equal, round and reactive to light. Sclerae are white. Oropharynx is clear and moist. Neck is supple. No masses. He has a pacemaker in his left chest area. Lungs: Clear to auscultation bilaterally. Heart: S1-S2, no obvious arrhythmia or murmur. Abdomen: Soft, nontender, scaphoid with ostomy in the right middle quadrant. Loss of gas and stool in the bag. Extremities: No gross deformity x4. He does have a small sacral wound which he states is doing well and is chronic in nature. No acute purulence or sign of infection here as it appears to be helping and granulating well. LABORATORY DATA: White blood cell count 9.8 on admission, it is 13 this morning. His hemoglobin is 10. Platelet count is 293. Electrolytes are pretty much within normal limits. Urinalysis is negative except for large amount of glucose in the urine. His INR is normal. Chest x-ray is clear. IMPRESSION: Weakness status post exploratory laparotomy, colectomy and colostomy. PLAN At this point the patient clinically looks good to me. The patient is asking if he can go back home and I think that is perfectly appropriate. I see no acute surgical problem at this time. He is likely weak from his extreme deconditioning due to the extensive surgical nature and prolonged hospitalization. There is recent illness. I believe that he will recover slowly which but can get supportive care with advanced and nutrition support, and wound care for the sacral wound. Will gladly see the patient on an as-needed basis. Please call there is any questions or concerns regarding his surgical care. I have asked the patient to please follow up with Dr. Soares in the office now he is discharged and he states he will call on Thursday for an appointment. Office phone number is [phone]. Will sign off. Please call if there are any questions or concerns. MD LUCIA Guzman/BELEM /10:10 AM /11:05 AM
[2017-07-26 12:08] VITALS: BP 126/66; PULSE 92; RESP 16; TEMP 98.5; O2SAT 100
[2017-07-26] MEDS: VANCOMYCIN 500 MG VIAL (FOR ORAL USE ONLY) PO SCH ×3 (12:54→21:34)
--- NOTE | 2017-07-26 14:31 | PD.CONS ---
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 difficile Primary Care Physician Unknown Diagnoses: History of Present Illness Patient seen and examined. Records reviewed. Patient is a 66-year-old male, admitted to the hospital for evaluation of weakness, and pallor. Patient has had problem with recurrent C. difficile, and he had an admission in May with severe case of C. difficile, and significant hypotension. He had multiple colonoscopies done during that hospitalization, and he had some ulcers and some stricture found in the transverse colon. He improved, and was discharge, but readmitted in June during his last hospitalization, he developed perforation, and ended up getting surgery. He underwent exploratory laparotomy, bowel resection, takedown of the splenic flexure, and placement of a colostomy. Pathology report showed findings suggestive of ischemic colitis. Patient was discharged to a rehabilitation facility, and he was doing well. His stomach has been functioning well. His been tolerating his diet. He was discharge for 1 day to home, and had a home health nurse visit him. The nurse noted that he was kind of pale so the patient was advised to go to the hospital for further evaluation and treatment. He has not had any nausea or vomiting or fever or chills. His colostomy output has not really changed. It's more loose pasty consistency. He denies any shortness of breath. No respiratory complaint. No urinary complaint. Stool for C. difficile was sent, and that came back positive. Infectious disease consultation has been requested to evaluate the patient with recurrent C. difficile toxin positive testing. Review of Systems Constitutional: DENIES: Fever, Chills, Night Sweats Eyes: DENIES: Eye pain Ears, nose, mouth, throat: DENIES: Nasal discharge, Oral lesions, Throat pain, Sinus Pain Respiratory: DENIES: Cough, Sputum production, Shortness of breath Cardiovascular: DENIES: Chest pain, Palpitations, Syncope, Dyspnea on Exertion , Lower Extremity Edema Gastrointestinal: DENIES: Abdominal pain, Nausea, Vomiting, Difficulty Swallowing Genitourinary: DENIES: Dysuria Musculoskeletal: DENIES: Joint pain, Muscle aches Integumentary: DENIES: Rash Neurologic: DENIES: Headache, Localized weakness Psychiatric: DENIES: Hallucinations Past Family Social History Allergies: Coded Allergies: No Known Allergies (Unverified Adverse Reaction, Unknown, 07/25/17) Past Medical History Hypertension Hyperlipidemia Ischemic colitis C. difficile colitis Arrythmia, third-degree AV block Depression Ulcerative colitis Past Surgical History Expiratory laparotomy, bowel resection and colostomy Reported Medications I attest that I obtained, updated or reviewed the home and current medications. Reported Meds & Active Scripts Active Levemir Inj (Insulin Detemir) 1,000 unit/ 10 ML Vial 5 Units SQ Q12HR Do not mix with any other Insulin. Hydrocodone-Acetamin 7.5-325 (Hydrocodone/Acetaminophen) 7.5 Mg-325 Mg Tablet 1 Tab PO Q6H PRN 12 Days Famotidine 20 Mg Tab 20 Mg PO BID Reported Vitamin C (Ascorbic Acid) 250 Mg Chew 500 Mg CHEW BID Multi Vitamin Daily (Multiple Vitamin) 1 Tab Tab Calcium 500 +D (Calcium Carbonate-Cholecalciferol) 500-400 Mg-Unit Tab 1 Tab PO DAILY Novolin R Inj (Insulin Human Regular) 1,000 Unit/10 Ml Vial 0 SQ DIRECTED Sliding Scale As Directed. Non-Aspirin (Acetaminophen) 325 Mg Tab 325 Mg PO Q4-6H PRN Aricept (Donepezil) 23 Mg Tab 5 Mg PO HS Do not split, crushed or chewed. Fluoxetine (Fluoxetine HCl) 40 Mg Cap 40 Cap PO DAILY Active Ordered Medications Current Medications Medications (Trade) Dose Ordered Sig/Tricia Route Start Time Stop Time Status Last Admin Sodium Chloride 1,000 ml @ 75 mls/hr [id number] IV 07/25/17 17:00 07/26/17 05:35 (NS Flush) 2 ml UNSCH PRN IV FLUSH 07/25/17 17:00 (NS Flush) 2 ml BID IV FLUSH 07/25/17 21:00 07/26/17 09:00 (Karen-Colace) 1 tab BID PO 07/25/17 21:00 (Milk Of Magnesia Liq) 30 ml Q12H PRN PO 07/25/17 17:00 (Senokot) 17.2 mg Q12H PRN PO 07/25/17 17:00 (Dulcolax Supp) 10 mg DAILY PRN RECTAL 07/25/17 17:00 (Lactulose Liq) 30 ml DAILY PRN PO 07/25/17 17:00 (Aricept) 5 mg HS PO 07/25/17 21:00 07/25/17 21:04 (PROzac) 40 mg DAILY PO 07/26/17 09:00 07/26/17 09:13 (Levemir Inj) 5 units HS SQ 07/25/17 21:00 07/25/17 21:06 (NovoLOG SUPPLEMENTAL SCALE) 1 ACHS SLIDING SCALE SQ 07/25/17 21:00 07/26/17 09:15 (Tylenol) 650 mg Q6H PRN PO 07/26/17 08:45 ([place] 5-325 Mg) 1 tab Q4H PRN PO 07/26/17 08:45 07/26/17 09:15 ([place] 7.5-325 Mg) 1 tab Q4H PRN PO 07/26/17 08:45 (Narcan Inj) 0.4 mg UNSCH PRN IV PUSH 07/26/17 08:45 (VANCOMYCIN for oral use only) 250 mg QID PO 07/26/17 13:00 07/26/17 12:54 (Marinol) 5 mg BID@11,16 PO 07/26/17 16:00 Family History Noncontributory Social History Smokes one pack a day. Drinks alcohol socially. Denies illicit drugs Physical Exam Vital Signs Vital Signs Date Time Temp Pulse Resp B/P (MAP) Pulse Ox O2 Delivery O2 Flow Rate FiO2 07/26/17 08:08 98.6 93 16 124/68 (86) 100 07/26/17 04:00 97.8 80 20 123/62 (82) 99 07/26/17 00:00 98.1 78 20 116/65 (82) 99 07/25/17 20:05 98.4 75 16 133/72 (92) 100 07/25/17 18:45 97.5 64 16 121/64 (83) 100 07/25/17 18:12 07/25/17 16:12 81 21 108/65 (79) 87 25 83/55 (64) 89 25 87/55 (66) Physical Exam GENERAL: Patient is a thin, well-developed male, awake and alert, not in respiratory distress. SKIN: Cool and dry. No generalized rash, no ecchymoses and no evidence of embolic lesions. HEAD: Atraumatic. Normocephalic. No temporal wasting, or tenderness. EYES: [place] conjunctiva. No petechia or hemorrhage. Pupils equal, round and reactive to light. Extraocular movements full and intact. No scleral icterus. No injection or drainage. EARS, NOSE AND THROAT: Nose without bleeding or purulent nasal discharge. No sinus tenderness. Mucous membranes pink and moist. No oral lesions noted. No exudate. No oral thrush. NECK: Trachea midline. Supple and not tender, no meningeal signs CARDIOVASCULAR: Regular rate and rhythm. No murmurs, rubs or gallops heard RESPIRATORY: Clear to auscultation. Breath sounds equal bilaterally. No rales , wheezing or rhonchi ABDOMEN: Soft, non-tender, mildly distended. Bowel sounds present and normoactive. No guarding. No rebound. No organomegaly. Well healed incisions. Colostomy with loose pasty yellow stool, no blood, no mucus, stoma ok EXTREMITIES: No clubbing, cyanosis, or edema. No joint effusion, has good ROM. No calf tenderness. Well perfused and warm. NEUROLOGICAL: Awake and alert. Cranial nerves grossly intact. Motor grossly within normal limits. PSYCHIATRIC: Normal affect, calm and cooperative. LINE: No evidence of infection Laboratory Laboratory Tests Test 07/25/17 14:38 07/25/17 16:00 07/25/17 18:05 07/25/17 19:15 White Blood Count 9.8 Red Blood Count 3.71 Hemoglobin 10.3 Hematocrit 31.8 Mean Corpuscular Volume 85.6 Mean Corpuscular Hemoglobin 27.6 Mean Corpuscular Hemoglobin Concent 32.3 Red Cell Distribution Width 17.8 Platelet Count 293 Mean Platelet Volume 8.7 Neutrophils (%) (Auto) 82.3 Lymphocytes (%) (Auto) 11.4 Monocytes (%) (Auto) 5.0 Eosinophils (%) (Auto) 0.2 Basophils (%) (Auto) 1.1 Neutrophils # (Auto) 8.1 Lymphocytes # (Auto) 1.1 Monocytes # (Auto) 0.5 Eosinophils # (Auto) 0.0 Basophils # (Auto) 0.1 CBC Comment DIFF FINAL Differential Comment Prothrombin Time 10.1 Prothromb Time International Ratio 1.0 Activated Partial Thromboplast Time 23.5 Blood Urea Nitrogen 38 Creatinine 0.88 Random Glucose 329 Total Protein 6.2 Albumin 2.0 Calcium Level 8.5 Magnesium Level 1.7 Alkaline Phosphatase 140 Aspartate Amino Transf (AST/SGOT) 20 Alanine Aminotransferase (ALT/SGPT) 24 Total Bilirubin 0.2 Sodium Level 136 Potassium Level 4.8 Chloride Level 106 Carbon Dioxide Level 20.4 Anion Gap 10 Estimat Glomerular Filtration Rate 86 Lactic Acid Level 3.1 1.9 Total Creatine Kinase 43 Lipase 115 Thyroid Stimulating Hormone 3rd Gen 1.250 Urine Color YELLOW Urine Turbidity CLEAR Urine pH 5.5 Urine Specific [place] 1.019 Urine Protein 30 Urine Glucose (UA) 300 Urine Ketones NEG Urine Occult Blood NEG Urine Nitrite NEG Urine Bilirubin NEG Urine Urobilinogen LESS THAN 2.0 Urine Leukocyte Esterase NEG Urine RBC LESS THAN 1 Urine WBC 1 Urine Amorphous Sediment RARE Urine Hyaline Casts 6 Urine Mucus FEW Microscopic Urinalysis Comment CULT NOT INDICATED Stool C. difficile Toxin (PCR) POSITIVE Stl C. difficile Toxin Epiderm 027 PRESUMPTIVE POSITIVE Test 07/26/17 07:15 White Blood Count 13.0 Red Blood Count 3.54 Hemoglobin 9.6 Hematocrit 30.2 Mean Corpuscular Volume 85.3 Mean Corpuscular Hemoglobin 27.2 Mean Corpuscular Hemoglobin Concent 31.8 Red Cell Distribution Width 17.9 Platelet Count 300 Mean Platelet Volume 8.2 Neutrophils (%) (Auto) 77.6 Lymphocytes (%) (Auto) 15.0 Monocytes (%) (Auto) 5.9 Eosinophils (%) (Auto) 0.6 Basophils (%) (Auto) 0.9 Neutrophils # (Auto) 10.1 Lymphocytes # (Auto) 2.0 Monocytes # (Auto) 0.8 Eosinophils # (Auto) 0.1 Basophils # (Auto) 0.1 CBC Comment DIFF FINAL Differential Comment Blood Urea Nitrogen 24 Creatinine 0.43 Random Glucose 64 Calcium Level 8.2 Sodium Level 138 Potassium Level 3.8 Chloride Level 110 Carbon Dioxide Level 21.5 Anion Gap 7 Estimat Glomerular Filtration Rate 197 25-Hydroxy Vitamin D Total 23.9 Date/Time Source Procedure Growth Status 07/25/17 18:05 Blood Peripheral Aerobic Blood Culture - Preliminary NO GROWTH IN 1 DAY Resulted 07/25/17 18:05 Blood Peripheral Anaerobic Blood Culture - Preliminary NO GROWTH IN 1 DAY Resulted Result Diagram: 07/26/17 0715 07/26/17 0715 Imaging RADIOLOGY STUDIES/FILMS REVIEWED Chest X-Ray 07/25/17 1414 Signed Impressions: Service Date/Time: Tuesday, July 25, 2017 14:46 - CONCLUSION: No acute cardiopulmonary disease. KDulce Maria Crane MD Assessment and Plan Assessment and Plan IMPRESSION C diff colitis vs colonization - stools looks normal loose pasty colosstomy output - he certainly is at high risks S/P lap, bowel resection and colostomy RECOMMENDATION Give 14 days PO Vanco Lactinex Avoid other systemic Abx He looks clinically stable from ID standpoint Thank you for this consultation Discussed Condition With Explained plan to the patient Smiley Medina MD Jul 26, 2017 14:31
[2017-07-26 16:08] VITALS: BP 119/64; PULSE 91; RESP 16; TEMP 99.1; O2SAT 99
[2017-07-26] MEDS: DRONABINOL 5 MG CAP PO SCH (17:10)
[2017-07-26] MEDS: LACTOBACILLUS ACIDOPHILUS TAB PO SCH (17:10)
[2017-07-26 20:00] VITALS: BP 109/56; PULSE 93; RESP 20; TEMP 98.4; O2SAT 94
[2017-07-26] MEDS: ACETAMINOPHEN/HYDROcodone 325 MG/7.5 MG TAB PO PRN (21:34)
[2017-07-26] MEDS: DONEPEZIL HCL 5 MG TAB PO SCH (21:34)
[2017-07-26] MEDS: INSULIN DETEMIR 100 UNITS/ML VIAL SQ SCH (21:35)
[2017-07-27] VITALS (10 sets, daily range): BP systolic 104–116; BP diastolic 55–65; PULSE 83–97; RESP 18–21; TEMP 98.2–99; O2SAT 98–100
[2017-07-27] MEDS: SODIUM CHLOR 0.45% 1000 ML INJ 1,000 ML IV SCH ×2 (06:40→21:52)
[2017-07-27] MEDS: VANCOMYCIN 500 MG VIAL (FOR ORAL USE ONLY) PO SCH ×4 (08:49→21:47)
[2017-07-27] MEDS: DOCUSATE SODIUM 50 MG/SENNA 8.6 MG TAB PO SCH ×3 (08:49→21:00)
[2017-07-27] MEDS: LACTOBACILLUS ACIDOPHILUS TAB PO SCH ×3 (08:49→17:38)
[2017-07-27] MEDS: FLUoxetine HCL 20 MG CAP PO SCH (08:49)
[2017-07-27] MEDS: INSULIN ASPART SUPPLEMENTAL SCALE SQ SCH ×4 (08:50→21:48)
[2017-07-27] MEDS: SODIUM CHLORIDE 0.9% FLUSH 10 ML FLUSH IV FLUSH SCH ×2 (08:50→21:00)
[2017-07-27] MEDS: ACETAMINOPHEN/HYDROcodone 325 MG/7.5 MG TAB PO PRN ×3 (09:19→21:48)
[2017-07-27 09:46] LABS: AUTOMATED NEUTROPHIL # 9.4 TH/MM3 (1.8-7.7); BASOPHIL # 0.1 TH/MM3 (0-0.2); BASOPHIL % 0.9 % (0.0-2.0); EOSINOPHIL % 0.3 % (0.0-4.0); HEMATOCRIT 30.3 % (39.0-51.0); HEMOGLOBIN 9.8 GM/DL (13.0-17.0); LYMPH % 11.2 % (9.0-44.0); LYMPHOCYTE # 1.3 TH/MM3 (1.0-4.8); MEAN CELL VOLUME 84.5 FL (80.0-100.0); MEAN CORPUSCULAR HEMOGLOBIN 27.3 PG (27.0-34.0); MEAN CORPUSCULAR HGB CONC 32.3 % (32.0-36.0); MEAN PLATELET VOLUME 8.2 FL (7.0-11.0); MONO % 5.2 % (0.0-8.0); MONOCYTE # 0.6 TH/MM3 (0-0.9); NEUT % 82.4 % (16.0-70.0); PLATELET COUNT 294 TH/MM3 (150-450); RED BLOOD COUNT 3.59 MIL/MM3 (4.50-5.90); RED CELL DISTRIBUTION WIDTH 17.5 % (11.6-17.2); WHITE BLOOD COUNT 11.4 TH/MM3 (4.0-11.0)
[2017-07-27] MEDS: DRONABINOL 5 MG CAP PO SCH ×2 (11:22→16:38)
--- NOTE | 2017-07-27 19:35 | HHI.PR ---
Subjective Remarks Patient seen today around noon. Says that poor appetite continues. Does not feel hungry. Feels like food tastes funny. Denies nausea. Denies abdominal pain. Objective Vital Signs Date Time Temp Pulse Resp B/P (MAP) Pulse Ox O2 Delivery O2 Flow Rate FiO2 07/27/17 16:25 98.9 83 18 116/59 (78) 99 07/27/17 16:00 84 07/27/17 12:08 98.4 97 18 109/57 (74) 99 07/27/17 08:25 98.9 95 18 105/59 (74) 99 07/27/17 04:00 98.4 92 19 104/65 (78) 99 07/27/17 01:14 20 07/27/17 00:00 98.2 93 21 110/55 (73) 98 07/26/17 20:00 98.4 93 20 109/56 (73) 94 I/O 07/26/17 07/26/17 07/26/17 07/27/17 07/27/17 07/27/17 07:00 15:00 23:00 07:00 15:00 23:00 Intake Total 60 ml 1479 ml 1399 ml 720 ml Output Total 400 ml 900 ml 750 ml 500 ml Balance -340 ml 579 ml 649 ml 220 ml Intake Oral 60 ml 480 ml 400 ml 720 ml IV Total 999 ml 999 ml Output Urine Total 400 ml 900 ml 750 ml 500 ml # Voids 2 # Bowel Movements 0 1 0 Result Diagram: 07/27/17 0917 07/26/17 0715 Objective Remarks GENERAL: Patient lying in bed. Appears comfortable.alert and oriented 3. SKIN: Warm and dry. HEAD: Normocephalic. EYES: No scleral icterus. No injection or drainage. NECK: Supple, trachea midline. No JVD. CARDIOVASCULAR: Regular rate and rhythm without murmurs, gallops, or rubs. RESPIRATORY: Breath sounds equal bilaterally. No accessory muscle use. GASTROINTESTINAL: Abdomen soft, non-tender, nondistended. Colostomy without any surrounding erythema or leakage. Abdomen nontender. MUSCULOSKELETAL: No cyanosis, or edema. Stage II sacral ulcer with minimal surrounding erythema. BACK: Nontender without obvious deformity. No CVA tenderness. A/P Assessment and Plan 66-year-old male with //Status post bowel resection with colostomy - Colostomy with stool - Consulted Dr. Soares. Appreciate assistance -Surgery has signed off. Continue monitor ostomy output. //Possible recurrent C. difficile. //Sepsis by criteria -leukocytosis 13, tachycardia -Positive C. difficile. Start by mouth vancomycin. = Continue vancomycin as per ID. //Deconditioning & Weight Loss - PT - Dietary consult - Ensure with each meal = 25 pound weight loss over the past month. Start Marinol. Start supplementation. = 07/27. Marinol not working. Consult systems librarian for calorie count. Consult GI for possibly needing PEG tube. There is apparently discussion about PEG tube as outpatient, and feel that patient will not BL to go home unless we can ensure he is eating. Start Megace. //Orthostatic hypotension - Patient noted per family to have significant decrease in by mouth intake - IV fluids - PT and OT eval - We'll likely require rehabilitation //Lactic acidosis - Unclear etiology at this time, but the patient did present twice in the last 3 months with sepsis - Lactic acidosis protocol - Obtain blood cultures - UA is pending, chest x-rays clear - Patient overall looks well so I will hold on abx at this time, if UA is positive then will treat accordingly = Resolved. //Depression - Continue home fluoxetine //Diabetes - reports taking levemir 10 units BID with supplemental scale at home - will initiate 5 units tonight, cover with sliding scale, and adjust based on need - diabetic diet = Some low glucose this morning. Hopefully will improve with appetite stimulation. = Elevated glucose today in the 300s. We will increase Levemir to twice daily, placed on moderate sliding scale. //Chronic Decubitus Ulcer - wound care //Case Management consulted for assistance with placement DVT prophy Continue home famotidine Discharge Planning Patient with very poor appetite. pending improvement. GI and calorie count. Rolo Marcos MD Jul 27, 2017 19:35
[2017-07-27] MEDS: DONEPEZIL HCL 5 MG TAB PO SCH (21:47)
[2017-07-27] MEDS: MEGESTROL ACETATE 40 MG TAB PO SCH (21:47)
[2017-07-27] MEDS: INSULIN DETEMIR 100 UNITS/ML VIAL SQ SCH (21:48)
[2017-07-28] VITALS (11 sets, daily range): BP systolic 105–117; BP diastolic 55–80; PULSE 80–99; RESP 18–21; TEMP 97.7–99.2; O2SAT 99–100
[2017-07-28] MEDS: INSULIN ASPART SUPPLEMENTAL SCALE SQ SCH ×4 (08:00→22:23)
[2017-07-28 08:11] LABS: BASOPHIL # 0.1 TH/MM3 (0-0.2); BASOPHIL % 0.7 % (0.0-2.0); EOSINOPHIL # 0.1 TH/MM3 (0-0.4); EOSINOPHIL % 0.9 % (0.0-4.0); HEMATOCRIT 31.1 % (39.0-51.0); HEMOGLOBIN 10.1 GM/DL (13.0-17.0); LYMPH % 15.6 % (9.0-44.0); LYMPHOCYTE # 1.6 TH/MM3 (1.0-4.8); MEAN CORPUSCULAR HEMOGLOBIN 27.2 PG (27.0-34.0); MEAN CORPUSCULAR HGB CONC 32.4 % (32.0-36.0); MEAN PLATELET VOLUME 8.3 FL (7.0-11.0); MONO % 6.9 % (0.0-8.0); MONOCYTE # 0.7 TH/MM3 (0-0.9); NEUT % 75.9 % (16.0-70.0); PLATELET COUNT 283 TH/MM3 (150-450); RED CELL DISTRIBUTION WIDTH 17.6 % (11.6-17.2); WHITE BLOOD COUNT 10.5 TH/MM3 (4.0-11.0)
[2017-07-28 08:31] LABS: ALBUMIN 1.8 GM/DL (3.4-5.0); BICARBONATE 24.4 MEQ/L (21.0-32.0); CALCIUM 8.3 MG/DL (8.5-10.1); CREATININE 0.39 MG/DL (0.60-1.30); MAGNESIUM 1.7 MG/DL (1.5-2.5); PHOSPHORUS 2.5 MG/DL (2.5-4.9)
[2017-07-28] MEDS: LACTOBACILLUS ACIDOPHILUS TAB PO SCH ×3 (08:40→15:34)
[2017-07-28] MEDS: DOCUSATE SODIUM 50 MG/SENNA 8.6 MG TAB PO SCH (08:40)
[2017-07-28] MEDS: FLUoxetine HCL 20 MG CAP PO SCH (08:40)
[2017-07-28] MEDS: MEGESTROL ACETATE 40 MG TAB PO SCH ×2 (08:40→21:57)
[2017-07-28] MEDS: SODIUM CHLORIDE 0.9% FLUSH 10 ML FLUSH IV FLUSH SCH ×2 (08:40→21:00)
[2017-07-28] MEDS: VANCOMYCIN 500 MG VIAL (FOR ORAL USE ONLY) PO SCH ×4 (08:41→21:58)
[2017-07-28] MEDS: CHOLECALCIFEROL (VIT D3) 1000 UNIT TAB PO SCH (08:41)
[2017-07-28] MEDS: INSULIN DETEMIR 100 UNITS/ML VIAL SQ SCH ×2 (08:41→22:23)
[2017-07-28] MEDS: SODIUM CHLOR 0.45% 1000 ML INJ 1,000 ML IV SCH ×3 (09:28→22:22)
--- NOTE | 2017-07-28 09:58 | HHI.IDPN ---
Subjective Subjective Remarks Patient is a 66-year-old male, admitted to the hospital for evaluation of weakness, and pallor. Patient has had problem with recurrent C. difficile, and he had an admission in May with severe case of C. difficile, and significant hypotension. He had multiple colonoscopies done during that hospitalization, and he had some ulcers and some stricture found in the transverse colon. He improved, and was discharge, but readmitted in June during his last hospitalization, he developed perforation, and ended up getting surgery. He underwent exploratory laparotomy, bowel resection, takedown of the splenic flexure, and placement of a colostomy. Pathology report showed findings suggestive of ischemic colitis. Patient was discharged to a rehabilitation facility, and he was doing well. His stomach has been functioning well. His been tolerating his diet. He was discharge for 1 day to home, and had a home health nurse visit him. The nurse noted that he was kind of pale so the patient was advised to go to the hospital for further evaluation and treatment. He has not had any nausea or vomiting or fever or chills. His colostomy output has not really changed. It's more loose pasty consistency. He denies any shortness of breath. No respiratory complaint. No urinary complaint. Stool for C. difficile was sent, and that came back positive. Infectious disease consultation has been requested to evaluate the patient with recurrent C. difficile toxin positive testing. Notes reviewed Temps ok Appetite fair to poor WBC down to normal No abdominal pain No N/V Liquid stool in colostomy Antibiotics Current Medications PO Vancomycin Medications (Trade) Dose Ordered Sig/Tricia Route Start Time Stop Time Status Last Admin Sodium Chloride 1,000 ml @ 75 mls/hr [id number] IV 07/25/17 17:00 07/28/17 09:29 (NS Flush) 2 ml UNSCH PRN IV FLUSH 07/25/17 17:00 (NS Flush) 2 ml BID IV FLUSH 07/25/17 21:00 07/28/17 08:40 (Karen-Colace) 1 tab BID PO 07/25/17 21:00 (Milk Of Magnesia Liq) 30 ml Q12H PRN PO 07/25/17 17:00 (Senokot) 17.2 mg Q12H PRN PO 07/25/17 17:00 (Dulcolax Supp) 10 mg DAILY PRN RECTAL 07/25/17 17:00 (Lactulose Liq) 30 ml DAILY PRN PO 07/25/17 17:00 (Aricept) 5 mg HS PO 07/25/17 21:00 07/27/17 21:47 (PROzac) 40 mg DAILY PO 07/26/17 09:00 07/28/17 08:40 (Tylenol) 650 mg Q6H PRN PO 07/26/17 08:45 ([place] 5-325 Mg) 1 tab Q4H PRN PO 07/26/17 08:45 07/26/17 17:10 ([place] 7.5-325 Mg) 1 tab Q4H PRN PO 07/26/17 08:45 07/27/17 21:48 (Narcan Inj) 0.4 mg UNSCH PRN IV PUSH 07/26/17 08:45 (VANCOMYCIN for oral use only) 250 mg QID PO 07/26/17 13:00 08/08/17 12:00 07/28/17 08:41 (Marinol) 5 mg BID@11,16 PO 07/26/17 16:00 07/27/17 16:38 (Lactinex) 1 tab TID PO 07/26/17 18:00 08/09/17 17:59 07/28/17 08:40 (Levemir Inj) 8 units BID SQ 07/27/17 21:00 07/28/17 08:41 (NovoLOG SUPPLEMENTAL SCALE) 1 ACHS SLIDING SCALE SQ 07/27/17 21:00 07/27/17 21:48 (Megace) 40 mg Q12HR PO 07/27/17 21:00 07/28/17 08:40 (Vitamin D3) 2,000 units DAILY PO 07/28/17 09:00 07/28/17 08:41 Lines PIV Past Medical History Hypertension Hyperlipidemia Ischemic colitis C. difficile colitis Arrythmia, third-degree AV block Depression Ulcerative colitis Past Surgical History Expiratory laparotomy, bowel resection and colostomy Allergies: Coded Allergies: No Known Allergies (Unverified Adverse Reaction, Unknown, 07/25/17) Objective . Vital Signs Date Time Temp Pulse Resp B/P (MAP) Pulse Ox O2 Delivery O2 Flow Rate FiO2 07/28/17 08:08 97.8 98 18 105/57 (73) 100 07/28/17 07:26 Room Air 07/28/17 04:00 98.2 89 21 111/64 (80) 99 07/28/17 04:00 Room Air 07/28/17 03:49 88 07/28/17 00:00 97.7 80 21 114/80 (91) 100 07/28/17 00:00 Room Air 07/27/17 23:47 87 07/27/17 20:00 99.0 84 19 111/59 (76) 100 07/27/17 20:00 Room Air 07/27/17 19:46 91 07/27/17 16:25 98.9 83 18 116/59 (78) 99 07/27/17 16:00 84 07/27/17 12:08 98.4 97 18 109/57 (74) 99 07/28/17 07/28/17 07/29/17 15:00 23:00 07:00 Intake Total 450 ml Balance 450 ml IV Total 450 ml . Laboratory Tests Test 07/27/17 09:17 07/28/17 07:23 White Blood Count 11.4 TH/MM3 10.5 TH/MM3 Red Blood Count 3.59 MIL/MM3 3.70 MIL/MM3 Hemoglobin 9.8 GM/DL 10.1 GM/DL Hematocrit 30.3 % 31.1 % Mean Corpuscular Volume 84.5 FL 84.0 FL Mean Corpuscular Hemoglobin 27.3 PG 27.2 PG Mean Corpuscular Hemoglobin Concent 32.3 % 32.4 % Red Cell Distribution Width 17.5 % 17.6 % Platelet Count 294 TH/MM3 283 TH/MM3 Mean Platelet Volume 8.2 FL 8.3 FL Neutrophils (%) (Auto) 82.4 % 75.9 % Lymphocytes (%) (Auto) 11.2 % 15.6 % Monocytes (%) (Auto) 5.2 % 6.9 % Eosinophils (%) (Auto) 0.3 % 0.9 % Basophils (%) (Auto) 0.9 % 0.7 % Neutrophils # (Auto) 9.4 TH/MM3 8.0 TH/MM3 Lymphocytes # (Auto) 1.3 TH/MM3 1.6 TH/MM3 Monocytes # (Auto) 0.6 TH/MM3 0.7 TH/MM3 Eosinophils # (Auto) 0.0 TH/MM3 0.1 TH/MM3 Basophils # (Auto) 0.1 TH/MM3 0.1 TH/MM3 CBC Comment DIFF FINAL DIFF FINAL Differential Comment Laboratory Tests Test 07/27/17 09:17 07/28/17 07:23 Lactic Acid Level 0.8 mmol/L Blood Urea Nitrogen 12 MG/DL Creatinine 0.39 MG/DL Random Glucose 53 MG/DL Albumin 1.8 GM/DL Calcium Level 8.3 MG/DL Phosphorus Level 2.5 MG/DL Magnesium Level 1.7 MG/DL Sodium Level 136 MEQ/L Potassium Level 4.1 MEQ/L Chloride Level 105 MEQ/L Carbon Dioxide Level 24.4 MEQ/L Anion Gap 7 MEQ/L Estimat Glomerular Filtration Rate 221 ML/MIN Microbiology Date/Time Source Procedure Growth Status 07/25/17 18:05 Blood Peripheral Aerobic Blood Culture - Preliminary NO GROWTH IN 2 DAYS Resulted 07/25/17 18:05 Blood Peripheral Anaerobic Blood Culture - Preliminary NO GROWTH IN 2 DAYS Resulted 07/25/17 18:00 Blood Peripheral Aerobic Blood Culture - Preliminary NO GROWTH IN 2 DAYS Resulted 07/25/17 18:00 Blood Peripheral Anaerobic Blood Culture - Preliminary NO GROWTH IN 2 DAYS Resulted 07/25/17 14:44 Blood Peripheral Aerobic Blood Culture - Preliminary NO GROWTH IN 2 DAYS Resulted 07/25/17 14:44 Blood Peripheral Anaerobic Blood Culture - Preliminary NO GROWTH IN 2 DAYS Resulted 07/25/17 14:30 Blood Peripheral Aerobic Blood Culture - Preliminary NO GROWTH IN 2 DAYS Resulted 07/25/17 14:30 Blood Peripheral Anaerobic Blood Culture - Preliminary NO GROWTH IN 2 DAYS Resulted Imaging Chest X-Ray 07/25/17 1414 Signed Impressions: Service Date/Time: Tuesday, July 25, 2017 14:46 - CONCLUSION: No acute cardiopulmonary disease. Taylor Crane MD Physical Exam GENERAL: Patient is a thin, well-developed male, awakens easily, NAD SKIN: Cool and dry. No generalized rash, no ecchymoses and no evidence of embolic lesions. HEAD: Atraumatic. Normocephalic. No temporal wasting, or tenderness. EYES: [place] conjunctiva. No petechia or hemorrhage. Pupils equal, round and reactive to light. Extraocular movements full and intact. No scleral icterus.. EARS, NOSE AND THROAT: Nose without bleeding or purulent nasal discharge. No sinus tenderness. Mucous membranes pink and moist. No oral lesions noted. NECK: Trachea midline. Supple and not tender, no meningeal signs CARDIOVASCULAR: Regular rate and rhythm. No murmurs, rubs or gallops heard RESPIRATORY: Clear to auscultation. Breath sounds equal bilaterally. No rales , wheezing or rhonchi ABDOMEN: Soft, non-tender, mildly distended. Bowel sounds present and normoactive. No guarding. No rebound. No organomegaly. Well healed incisions. Colostomy with loose pasty yellow stool, no blood, no mucus, stoma ok EXTREMITIES: No clubbing, cyanosis, or edema. No joint effusion, has good ROM. No calf tenderness. Well perfused and warm. NEUROLOGICAL: Grossly non-focal PSYCHIATRIC: Normal affect, calm and cooperative. LINE: No evidence of infection Assessment & Plan Remarks IMPRESSION C diff colitis vs colonization - stools looks normal loose pasty colosstomy output - he certainly is at high risks S/P lap, bowel resection and colostomy Leukocytosis, better RECOMMENDATION Give 14 days PO Vanco Lactinex Try asacol to see if will help with his loose stool Avoid other systemic Abx He looks clinically stable from ID standpoint Smiley Medina MD Jul 28, 2017 09:58
--- NOTE | 2017-07-28 11:04 | PD.WCN.NOT ---
Wound Consult Description: Wound consult ordered by for Sacrum Communicated with: Dr.Pontey Nix RN Recommendation: 1) Encourage patient to reposition every 2 hours for comfort and offloading. 2) Cleanse Coccyx wound with normal saline only.Pat dry. 3) Apply Santyl 2mm thick to wound base , cover with small fluffed moisten gauze. 4) Secure with dry boarder gauze, Change Daily or as needed for drainage or dislodgement. Additional Information: Patient was seen today by data analyst report writer on Rand Gomes RN available if needed. present with patient.Patient able to independently reposition to right side.Assessment finding patient has an unstageable pressure related injury to coccyx measuring 2.6cm x 0.9cm x yellow slough.Wound cleansed with normal saline pat dry edges even with wound base no odor noted periwound intact/ blanchable.Moisten fluffed gauze applied to wound base,Santyl unavailable at this time.Covered with dry boarder gauze dated/signed. Airapy bed ordered.Patient tolerated wound care well. Kisha Titus [facility] Jul 28, 2017 11:04
--- NOTE | 2017-07-28 11:35 | PD.CONS ---
HPI History of Present Illness This is a 66 year old male with hx dementia, bowel obstruction s/p colostomy, c diff, DM, DKA, chronic decubitus ulcer who presented with syncope. GI has been consulted for decreased appetite. reports he has lost 25lbs in 3 weeks while at rehab following his bowel surgery. Pt complains that he does not like the conservative carb diet here and did not like the food at [facility]. He does drink ensure. He has tried marinol and is currently on Megace. He was seen by our service for n/v/diarrhea during hospitalization earlier in May and had colonoscopy 06/10/17 that showed colitis likely ulcerative type, path showed ulceration, he was found to have c diff. Pos for c diff epid 027 on . (Meka Vail) PFSH Past Medical History HTN HLD Pacemaker placement Arrythmia, third-degree AV block Depression Ulcerative colitis Mom bowel obstruction requiring surgical intervention with colostomy Past Surgical History bowel resection May 2017 (Meka Vail) Coded Allergies: No Known Allergies (Unverified Adverse Reaction, Unknown, 07/25/17) Family History Father, mother, brother with heart disease. Social History hx smoking 1ppd but currently a 2-3 cigarettes daily. Drinks alcohol socially. (Meka Vail) Review of Systems Gastrointestinal: COMPLAINS OF: Anorexia, DENIES: Abdominal pain, Constipation , Diarrhea, Nausea Except as stated in HPI: all other systems reviewed are Neg (Meka Vail) GI Exam Vitals I&O Vital Signs Date Time Temp Pulse Resp B/P (MAP) Pulse Ox O2 Delivery O2 Flow Rate FiO2 07/28/17 08:08 97.8 98 18 105/57 (73) 100 07/28/17 08:00 99 07/28/17 07:26 Room Air 07/28/17 04:00 98.2 89 21 111/64 (80) 99 07/28/17 04:00 Room Air 07/28/17 03:49 88 07/28/17 00:00 97.7 80 21 114/80 (91) 100 07/28/17 00:00 Room Air 07/27/17 23:47 87 07/27/17 20:00 99.0 84 19 111/59 (76) 100 07/27/17 20:00 Room Air 07/27/17 19:46 91 07/27/17 16:25 98.9 83 18 116/59 (78) 99 07/27/17 16:00 84 07/27/17 12:08 98.4 97 18 109/57 (74) 99 I/O 07/27/17 07/27/17 07/27/17 07/28/17 07/28/17 07/28/17 07:00 15:00 23:00 07:00 15:00 23:00 Intake Total 1399 ml 1197 ml 1259 ml 450 ml Output Total 750 ml 500 ml 1950 ml Balance 649 ml 697 ml -691 ml 450 ml Intake Oral 400 ml 720 ml 710 ml IV Total 999 ml 477 ml 549 ml 450 ml Output Urine Total 750 ml 500 ml 1300 ml Stool Total 650 ml # Bowel Movements 0 Laboratory Test 07/28/17 07:23 White Blood Count 10.5 TH/MM3 Red Blood Count 3.70 MIL/MM3 Hemoglobin 10.1 GM/DL Hematocrit 31.1 % Mean Corpuscular Volume 84.0 FL Mean Corpuscular Hemoglobin 27.2 PG Mean Corpuscular Hemoglobin Concent 32.4 % Red Cell Distribution Width 17.6 % Platelet Count 283 TH/MM3 Mean Platelet Volume 8.3 FL Neutrophils (%) (Auto) 75.9 % Lymphocytes (%) (Auto) 15.6 % Monocytes (%) (Auto) 6.9 % Eosinophils (%) (Auto) 0.9 % Basophils (%) (Auto) 0.7 % Neutrophils # (Auto) 8.0 TH/MM3 Lymphocytes # (Auto) 1.6 TH/MM3 Monocytes # (Auto) 0.7 TH/MM3 Eosinophils # (Auto) 0.1 TH/MM3 Basophils # (Auto) 0.1 TH/MM3 CBC Comment DIFF FINAL Differential Comment Blood Urea Nitrogen 12 MG/DL Creatinine 0.39 MG/DL Random Glucose 53 MG/DL Albumin 1.8 GM/DL Calcium Level 8.3 MG/DL Phosphorus Level 2.5 MG/DL Magnesium Level 1.7 MG/DL Sodium Level 136 MEQ/L Potassium Level 4.1 MEQ/L Chloride Level 105 MEQ/L Carbon Dioxide Level 24.4 MEQ/L Anion Gap 7 MEQ/L Estimat Glomerular Filtration Rate 221 ML/MIN Date/Time Source Procedure Growth Status 07/25/17 18:05 Blood Peripheral Aerobic Blood Culture - Preliminary NO GROWTH IN 3 DAYS Resulted 07/25/17 18:05 Blood Peripheral Anaerobic Blood Culture - Preliminary NO GROWTH IN 3 DAYS Resulted Physical Examination GEN: thin HEENT: PERRL; normocephalic; atraumatic; no jaundice. CHEST: diminished CARDIAC: RRR ABDOMEN: Soft, nondistended, nontender; no hepatosplenomegaly; bowel sounds are present in all four quadrants. colostomy with soft brown stool EXTREMITIES: No clubbing, cyanosis, or edema. SKIN: Normal; no rash; no jaundice. 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 (Meka Vail) Assessment and Plan Plan ASSESSMENT - poor PO intake, weight loss - poor appetite, pt does not like food choices. d /w PEG tube placement, pt does not want, wishes to try to eat more. pt also deconditioned, according to is reluctant to fully participate in PT. nutrition consulted for calorie count . GS consulted, pt to f/u as outpt. - hx c diff - ID following, + c diff tox epid 027, infection vs colonization. on oral vanc PLAN - continue Megace - encourage PO intake, outside food, whatever he will eat - frequent meals/snacks if poss - liquid supplements - pt does not want PEG tube - encourage physical therapy and exercise - supportive care This pt seen by myself and Dr Ortiz and this note is written on his behalf (Meka Vail) Physician Comments Seen and examined with ELECTRICAL INTEGRATOR, eating really well asking for extra food in between meals. On treatment for c. diff. Does not want peg, does not seem to need it at this time. Continue megace. Will sign off, reconsult as needed. Thank you (Roseanna Negro MD) Meka Vail Jul 28, 2017 11:34 Roseanna Negro MD Jul 28, 2017 18:32
[2017-07-28] MEDS: DRONABINOL 5 MG CAP PO SCH ×2 (11:52→15:34)
[2017-07-28] MEDS: MESALAMINE HD 800 MG DELAYED RELEASE TAB PO SCH ×3 (11:52→21:57)
--- NOTE | 2017-07-28 12:06 | HHI.PR ---
Subjective Remarks Follow-up C. difficile colitis 07/28/17-patient seen and examined, patient does not want to have PEG tube placed. No acute event overnight and colostomy with pasty stool Objective Vitals Vital Signs Date Time Temp Pulse Resp B/P (MAP) Pulse Ox O2 Delivery O2 Flow Rate FiO2 07/28/17 08:08 97.8 98 18 105/57 (73) 100 07/28/17 08:00 99 07/28/17 07:26 Room Air 07/28/17 04:00 98.2 89 21 111/64 (80) 99 07/28/17 04:00 Room Air 07/28/17 03:49 88 07/28/17 00:00 97.7 80 21 114/80 (91) 100 07/28/17 00:00 Room Air 07/27/17 23:47 87 07/27/17 20:00 99.0 84 19 111/59 (76) 100 07/27/17 20:00 Room Air 07/27/17 19:46 91 07/27/17 16:25 98.9 83 18 116/59 (78) 99 07/27/17 16:00 84 07/27/17 12:08 98.4 97 18 109/57 (74) 99 I/O 07/27/17 07/27/17 07/27/17 07/28/17 07/28/17 07/28/17 07:00 15:00 23:00 07:00 15:00 23:00 Intake Total 1399 ml 1197 ml 1259 ml 450 ml Output Total 750 ml 500 ml 1950 ml Balance 649 ml 697 ml -691 ml 450 ml Intake Oral 400 ml 720 ml 710 ml IV Total 999 ml 477 ml 549 ml 450 ml Output Urine Total 750 ml 500 ml 1300 ml Stool Total 650 ml # Bowel Movements 0 Result Diagram: 07/28/17 0723 07/28/17 0723 Imaging Last Impressions Chest X-Ray 07/25/17 1414 Signed Impressions: Service Date/Time: Tuesday, July 25, 2017 14:46 - CONCLUSION: No acute cardiopulmonary disease. Taylor Crane MD Objective Remarks GENERAL: NAD SKIN: Warm and dry. HEAD: Normocephalic. EYES: No scleral icterus. No injection or drainage. NECK: Supple, trachea midline. No JVD or lymphadenopathy. CARDIOVASCULAR: Regular rate and rhythm without murmurs, gallops, or rubs. RESPIRATORY: Breath sounds equal bilaterally. No accessory muscle use. GASTROINTESTINAL: Abdomen soft, non-tender, nondistended. Colostomy with pasty stool MUSCULOSKELETAL: No cyanosis, or edema. BACK: Nontender without obvious deformity. No CVA tenderness. Procedures none A/P Problem List: (1) C. difficile colitis ICD Code: A04.72 - Enterocolitis due to Clostridium difficile, not specified as recurrent (2) Lactic acidosis ICD Code: E87.2 - Acidosis (3) DM (diabetes mellitus) ICD Code: E11.9 - Type 2 diabetes mellitus without complications Status: Chronic (4) HTN (hypertension) ICD Code: I10 - Essential (primary) hypertension Status: Chronic (5) Malnourished ICD Code: E46 - Unspecified protein-calorie malnutrition Status: Acute (6) Orthostatic hypotension ICD Code: I95.1 - Orthostatic hypotension Status: Acute Assessment and Plan 66-year-old man with Status post bowel resection with colostomy Appreciate input from general surgery, will need outpatient follow-up Monitor Ostomy output C. difficile colitis Sepsis by criteria Positive C. difficile PCR Currently on by mouth vancomycin 14 days. Continue Asacol until 08/04/17 Appreciate input from ID Deconditioning & Weight Loss Patient seen by GI today 07/28/17 however does not want any PEG tube placement Continue Megace PT to treat and eval Orthostatic hypotension BP still soft Continue current gentle IV fluid hydration Lactic acidosis Resolved Depression Continue home fluoxetine Diabetes Currently on Levemir 8units twice daily, moderate sliding scale. Chronic Decubitus Ulcer Appreciate input from wound care DVT prophy Continue home famotidine Problem Qualifiers (1) Malnourished: Qualified Codes: E43 - Unspecified severe protein-calorie malnutrition Servando Hwang MD Jul 28, 2017 12:06
[2017-07-28] MEDS: ACETAMINOPHEN/HYDROcodone 325 MG/7.5 MG TAB PO PRN (21:57)
[2017-07-28] MEDS: DONEPEZIL HCL 5 MG TAB PO SCH (21:57)
[2017-07-29] VITALS (7 sets, daily range): BP systolic 115–120; BP diastolic 57–64; PULSE 82–89; RESP 16–20; TEMP 97.2–99.2; O2SAT 98–100
[2017-07-29] MEDS: MESALAMINE HD 800 MG DELAYED RELEASE TAB PO SCH ×2 (06:00→13:13)
[2017-07-29] MEDS ORDERED: COLLAGENASE OINT 30 GM TUBE TOPICAL PRN (06:45)
[2017-07-29] MEDS: INSULIN ASPART SUPPLEMENTAL SCALE SQ SCH ×2 (08:00→12:02)
[2017-07-29] MEDS: SODIUM CHLORIDE 0.9% FLUSH 10 ML FLUSH IV FLUSH SCH ×2 (08:04→08:52)
[2017-07-29] MEDS: VANCOMYCIN 500 MG VIAL (FOR ORAL USE ONLY) PO SCH ×2 (08:54→12:01)
[2017-07-29] MEDS: LACTOBACILLUS ACIDOPHILUS TAB PO SCH ×2 (08:54→12:01)
[2017-07-29] MEDS: CHOLECALCIFEROL (VIT D3) 1000 UNIT TAB PO SCH (08:54)
[2017-07-29] MEDS: MEGESTROL ACETATE 40 MG TAB PO SCH (08:54)
[2017-07-29] MEDS: INSULIN DETEMIR 100 UNITS/ML VIAL SQ SCH (08:54)
[2017-07-29] MEDS: FLUoxetine HCL 20 MG CAP PO SCH (08:54)
[2017-07-29] MEDS ORDERED: COLLAGENASE OINT 30 GM TUBE TOPICAL SCH (09:00)
[2017-07-29] MEDS: DRONABINOL 5 MG CAP PO SCH (10:00)
--- NOTE | 2017-07-29 10:26 | HHI.PR ---
Subjective Remarks Follow-up C. difficile colitis 07/28/17-patient seen and examined, patient does not want to have PEG tube placed. No acute event overnight and colostomy with pasty stool 07/29/17-patient seen and examined, no acute event overnight. Reported increased appetite. stated his stool is getting more formed Objective Vitals Vital Signs Date Time Temp Pulse Resp B/P (MAP) Pulse Ox O2 Delivery O2 Flow Rate FiO2 07/29/17 08:00 97.2 87 18 120/64 (82) 100 07/29/17 04:26 85 07/29/17 04:00 Room Air 07/29/17 04:00 98.9 88 20 118/58 (78) 98 07/29/17 00:02 82 07/29/17 00:00 99.2 89 20 118/60 (79) 99 07/29/17 00:00 Room Air 07/28/17 20:00 98.8 85 20 117/62 (80) 100 07/28/17 20:00 Room Air 07/28/17 19:59 93 07/28/17 16:08 99.2 87 18 106/60 (75) 100 07/28/17 16:00 89 07/28/17 12:45 89 07/28/17 12:13 98.4 92 18 105/55 (72) 99 I/O 07/28/17 07/28/17 07/28/17 07/29/17 07/29/17 07/29/17 07:00 15:00 23:00 07:00 15:00 23:00 Intake Total 1259 ml 450 ml 1057 ml 1016 ml Output Total 1950 ml 600 ml 2400 ml Balance -691 ml 450 ml 457 ml -1384 ml Intake Oral 710 ml 720 ml 480 ml IV Total 549 ml 450 ml 337 ml 536 ml Output Urine Total 1300 ml 600 ml 1800 ml Stool Total 650 ml 600 ml Result Diagram: 07/28/17 0723 07/28/17 0723 Imaging Last Impressions Chest X-Ray 07/25/17 1414 Signed Impressions: Service Date/Time: Tuesday, July 25, 2017 14:46 - CONCLUSION: No acute cardiopulmonary disease. Taylor Crane MD Objective Remarks GENERAL: NAD SKIN: Warm and dry. HEAD: Normocephalic. EYES: No scleral icterus. No injection or drainage. NECK: Supple, trachea midline. No JVD or lymphadenopathy. CARDIOVASCULAR: Regular rate and rhythm without murmurs, gallops, or rubs. RESPIRATORY: Breath sounds equal bilaterally. No accessory muscle use. GASTROINTESTINAL: Abdomen soft, non-tender, nondistended. Colostomy with pasty stool MUSCULOSKELETAL: No cyanosis, or edema. BACK: Nontender without obvious deformity. No CVA tenderness. Procedures none A/P Problem List: (1) C. difficile colitis ICD Code: A04.72 - Enterocolitis due to Clostridium difficile, not specified as recurrent (2) Lactic acidosis ICD Code: E87.2 - Acidosis (3) DM (diabetes mellitus) ICD Code: E11.9 - Type 2 diabetes mellitus without complications Status: Chronic (4) HTN (hypertension) ICD Code: I10 - Essential (primary) hypertension Status: Chronic (5) Malnourished ICD Code: E46 - Unspecified protein-calorie malnutrition Status: Acute (6) Orthostatic hypotension ICD Code: I95.1 - Orthostatic hypotension Status: Acute Assessment and Plan 66-year-old man with Status post bowel resection with colostomy Appreciate input from general surgery, will need outpatient follow-up Monitor Ostomy output C. difficile colitis Sepsis by criteria Positive C. difficile PCR Currently on by mouth vancomycin 14 days. Continue Asacol until 08/04/17 Appreciate input from ID Deconditioning & Weight Loss Patient seen by GI today 07/28/17 however does not want any PEG tube placement Continue Megace PT to treat and eval Orthostatic hypotension BP improved Continue current gentle IV fluid hydration Lactic acidosis Resolved Depression Continue home fluoxetine Diabetes Currently on Levemir 8units twice daily, moderate sliding scale. Chronic Decubitus Ulcer Appreciate input from wound care DVT prophy Continue home famotidine Problem Qualifiers (1) Malnourished: Qualified Codes: E43 - Unspecified severe protein-calorie malnutrition Servando Hwang MD Jul 29, 2017 10:26
--- NOTE | 2017-07-29 10:26 | HHI.FF ---
Face to Face Verification Diagnosis: (1) C. difficile colitis (2) DM (diabetes mellitus) (3) HTN (hypertension) (4) Lactic acidosis (5) EDGARDO (acute kidney injury) Physical Therapy Order: Evaluate and Treat Home Health Nursing Order: Signs/symptoms of disease process I have seen patient Aristides Gutierrez on 07/29/17. My clinical findings support the need for the requested home health care services because: Deconditioned w/ increased weakness I certify that my clinical findings support that this patient is homebound because: Poor cardiac reserve Servando Hwang MD Jul 29, 2017 10:26
[2017-07-29] MEDS ORDERED: MEGE40TA PO (10:34)
[2017-07-29] MEDS ORDERED: LACT PO (10:34)
[2017-07-29] MEDS ORDERED: DRON5CAP PO ×2 (10:34→13:25)
[2017-07-29] MEDS ORDERED: COLL30T TOPICAL (10:34)
[2017-07-29] MEDS ORDERED: VANC500I3 PO (10:34)
[2017-07-29] MEDS ORDERED: LEVEMIR SQ (10:34)
[2017-07-29] MEDS ORDERED: MESA1TAB2 PO (10:34)
--- NOTE | 2017-07-29 10:37 | HHI.DS ---
Discharge Summary Admission Date Jul 25, 2017 at 16:47 Discharge Date: Jul 29, 2017 Admitting Diagnosis (1) C. difficile colitis ICD Code: A04.72 - Enterocolitis due to Clostridium difficile, not specified as recurrent (2) Lactic acidosis ICD Code: E87.2 - Acidosis (3) DM (diabetes mellitus) ICD Code: E11.9 - Type 2 diabetes mellitus without complications Status: Chronic (4) HTN (hypertension) ICD Code: I10 - Essential (primary) hypertension Status: Chronic (5) Malnourished ICD Code: E46 - Unspecified protein-calorie malnutrition Status: Acute (6) Orthostatic hypotension ICD Code: I95.1 - Orthostatic hypotension Status: Acute Procedures none Brief History - From Admission 66 yo male with medical history significant for HTN, DM, decubitis ulcer presents for pre-syncope. His medical history significant for recent hospitalization for bowel obstruction requiring colostomy placement in April and then again in May. Hospital was complicated by C. difficile. 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 Surgical intervention was done by Dr. Soares. The patient was discharged on July 06 to [facility]. Per family patient was doing okay there but continued to have weakness, especially when he attempted to ambulate. The patient was discharged from [facility] yesterday home. Today nurse came to do some physical therapy, upon standing he became very weak, pale, and looked like he was going to pass out. This is when the patient was brought to the ER. Per family the patient has not been eating well and has lost a significant amount of weight since discharge. The patient does have a decubitus ulcer which appears to be chronic. He has been producing stool in the colostomy with no significant changes in the stool. The patient's family reports that there is been consideration for PEG tube placement. In the ER the patient's lab were significant for lactic acid of 3.1, random glucose 329, and he had positive orthostatics. The patient denies abdominal pain, dysuria, nausea, or vomiting. Reports he does not feel sick like he did at prior admissions. He did not like the food at [facility] so has mainly been drinking ensure shakes. He reports his blood sugars were all over the place, and was concerned he was being given insulin when his blood sugar was too low. He reports ulcer on his bottom, denies drainage, states its taking a while to heal because of his poor weight. No other concerns at this time. Was previously on prednisone but reports he completed it. CBC/BMP: 07/28/17 0723 07/28/17 0723 Significant Findings Laboratory Tests Test 07/27/17 09:17 07/28/17 07:23 White Blood Count 11.4 TH/MM3 (4.0-11.0) Red Blood Count 3.59 MIL/MM3 (4.50-5.90) 3.70 MIL/MM3 (4.50-5.90) Hemoglobin 9.8 GM/DL (13.0-17.0) 10.1 GM/DL (13.0-17.0) Hematocrit 30.3 % (39.0-51.0) 31.1 % (39.0-51.0) Red Cell Distribution Width 17.5 % (11.6-17.2) 17.6 % (11.6-17.2) Neutrophils (%) (Auto) 82.4 % (16.0-70.0) 75.9 % (16.0-70.0) Neutrophils # (Auto) 9.4 TH/MM3 (1.8-7.7) 8.0 TH/MM3 (1.8-7.7) Creatinine 0.39 MG/DL (0.60-1.30) Random Glucose 53 MG/DL (74-106) Albumin 1.8 GM/DL (3.4-5.0) Calcium Level 8.3 MG/DL (8.5-10.1) Imaging Last Impressions Chest X-Ray 07/25/17 1414 Signed Impressions: Service Date/Time: Tuesday, July 25, 2017 14:46 - CONCLUSION: No acute cardiopulmonary disease. Taylor Crane MD PE at Discharge GENERAL: NAD SKIN: Warm and dry. HEAD: Normocephalic. EYES: No scleral icterus. No injection or drainage. NECK: Supple, trachea midline. No JVD or lymphadenopathy. CARDIOVASCULAR: Regular rate and rhythm without murmurs, gallops, or rubs. RESPIRATORY: Breath sounds equal bilaterally. No accessory muscle use. GASTROINTESTINAL: Abdomen soft, non-tender, nondistended. Colostomy with pasty stool MUSCULOSKELETAL: No cyanosis, or edema. BACK: Nontender without obvious deformity. No CVA tenderness. Hospital Course Whiled in the hospital, patient was treated for: Status post bowel resection with colostomy Appreciate input from general surgery, will need outpatient follow-up Monitor Ostomy output C. difficile colitis Sepsis by criteria Positive C. difficile PCR He was started on by mouth vancomycin 14 days. Continue Asacol until Appreciate input from ID Deconditioning & Weight Loss Patient seen by GI 07/28/17 however does not want any PEG tube placement Treated with Megace PT to treat and eval Orthostatic hypotension BP improved with gentle IV fluid hydration Lactic acidosis Resolved Depression Continued on home fluoxetine Diabetes Diabetic control was achieved with Levemir 8units twice daily, moderate sliding scale. Chronic Decubitus Ulcer Appreciate input from wound care DVT prophy Continue home famotidine Pt Condition on Discharge: Stable Discharge Disposition: Disch w/ Home Health Serv Discharge Time: > 30 minutes Discharge Instructions DIET: Follow Instructions for: Diabetic Diet Activities you can perform: Regular-No Restrictions Follow up Referrals: PCP Follow-up - 1 Week New Medications: Collagenase (Santyl) 250 Unit/Gram Oin 1 APPLIC TOPICAL DAILY for Infection, #1 TUBE Dronabinol (Dronabinol) 5 Mg Cap 5 MG PO BID@11,16 for Build Immunity, #60 CAP Insulin Detemir Inj (Levemir Inj) 1,000 unit/ 10 ML Vial 8 UNITS SQ BID for Blood Sugar Management, #100 INJECTION Do not mix with any other Insulin. Lactobacillus Acidophilus (Acidophilus/l-Sporogenes) 35 Million Cell-25 Million Cell Tab 1 TAB PO TID for Infection, #90 TAB Megestrol (Megestrol) 40 Mg Tab 40 MG PO Q12HR for Immunosuppression, #[address] (Mesalamine DR) 800 Mg Tab 1600 MG PO Q8HR for Infection, #90 TAB Vancomycin Inj (Vancomycin Inj) 500 Mg Inj 250 MG PO QID for Infection, #56 INJECTION Continued Medications: Acetaminophen (Non-Aspirin) 325 Mg Tab 325 MG PO Q4-6H PRN for FEVER, TAB 0 Refills Ascorbic Acid (Vitamin C) 250 Mg Chew 500 MG CHEW BID for Nutritional Supplement, #60 TAB 0 Refills Calcium Carbonate-Cholecalciferol (Calcium 500 +D) 500-400 Mg-Unit Tab 1 TAB PO DAILY for Calcium Supplement, TAB 0 Refills Donepezil (Aricept) 23 Mg Tab 5 MG PO HS, TAB Do not split, crushed or chewed. Famotidine (Famotidine) 20 Mg Tab 20 MG PO BID for Reflux, #60 TAB Fluoxetine (Fluoxetine) 40 Mg Cap 40 CAP PO DAILY, #30 CAP 0 Refills Hydrocodone/Acetaminophen (Hydrocodone-Acetamin 7.5-325) 7.5 Mg-325 Mg Tablet 1 TAB PO Q6H PRN for PAIN SCALE 6 TO 10 for 12 Days, #48 TAB Insulin Human Regular Inj (Novolin R Inj) 1,000 Unit/10 Ml Vial 0 SQ DIRECTED for Blood Sugar Management, #10 ML 0 Refills Sliding Scale As Directed. Multiple Vitamin (Multi Vitamin Daily) 1 Tab Tab Discontinued Medications: Insulin Detemir Inj (Levemir Inj) 1,000 unit/ 10 ML Vial 5 UNITS SQ Q12HR for Blood Sugar Management, #60 INJECTION Do not mix with any other Insulin. Servando Hwang MD Jul 29, 2017 10:37
[2017-07-29] MEDS: ACETAMINOPHEN/HYDROcodone 325 MG/7.5 MG TAB PO PRN (12:06)
== END 2017-07-29 13:59 | disposition home health service (06) | DRG 871 ==
LOC: NEPE 13:41 → NEDA 16:47 → N04A 18:40
PROVIDERS: ADMIT Hospitalist; ATTEND Hospitalist
DX: A41.9 Sepsis, unspecified organism (principal); E43 Unspecified severe protein-calorie malnutrition; N17.9 Acute kidney failure, unspecified; L89.150 Pressure ulcer of sacral region, unstageable; A04.71 Enterocolitis due to Clostridium difficile, recurrent; E87.2 Acidosis; E86.0 Dehydration; Z68.1 Body mass index [BMI] 19.9 or less, adult; M54.9 Dorsalgia, unspecified; G89.29 Other chronic pain; M19.90 Unspecified osteoarthritis, unspecified site; I25.10 Atherosclerotic heart disease of native coronary artery without angina pectoris; E10.9 Type 1 diabetes mellitus without complications; E78.5 Hyperlipidemia, unspecified; F17.210 Nicotine dependence, cigarettes, uncomplicated; I10 Essential (primary) hypertension; F32.9 Major depressive disorder, single episode, unspecified; I95.1 Orthostatic hypotension; R00.0 Tachycardia, unspecified; Z79.4 Long term (current) use of insulin; Z93.3 Colostomy status; Z95.0 Presence of cardiac pacemaker; R53.81 Other malaise
CPT/HCPCS: 71010; 80048; 80053; 80069; 81001; 82306; 82550; 82948; 83605; 83690; 83735; 84443; 85025; 85610; 85730; 87040; 87493; 93005; 96360; 96361; J1815; J7030

== ENCOUNTER 2017-10-01 13:05 | Inpatient (IN) | payer OTHER, MEDICARE ==
[~2017-10-01] VITALS: Ht 182.9 cm; Wt 64.2 kg
[~2017-10-01 13:05] MED LIST changes: +COLL30T TOPICAL; +DRON5CAP PO; +LACT PO; +MEGE40TA PO; +MESA1TAB2 PO; -MULT1TAB46; +MULT1TAB46 PO; -PRED10 PO; +VANC500I3 PO
[2017-10-01 13:38] VITALS: BP 85/52; PULSE 85; RESP 24; TEMP 98.5; O2SAT 98
--- NOTE | 2017-10-01 14:05 | RADRPT ---
EXAM DATE/TIME: 10/01/2017 13:52 [place] COMPARISON: CHEST SINGLE AP, July 25, 2017, 14:46. CHEST PA & LAT, October 28, 2014, 14:24. INDICATIONS : Shortness of breath. MEDICAL HISTORY : None. SURGICAL HISTORY : Pacemaker. ENCOUNTER: Initial ACUITY: 1 day PAIN SCORE: 5/10 LOCATION: Bilateral chest Left side. FINDINGS: PA and lateral views of the chest demonstrates a new patchy infiltrate in the left mid to left lower lung. The right lung remains clear. There is a stable granuloma in the right upper lung. The heart si ze is stable. There is a pacemaker on the left chest. There is no pneumothorax. No pleural effusions. The bony structures are stable.. CONCLUSION: There is a new Infiltrate in the left mid to left lower lung suggestive of pneumonia. John Francois MD on October 01, 2017 at 14:03 Board Certified Radiologist. This report was verified electronically.
[2017-10-01 14:52] VITALS: BP 125/56; PULSE 67; RESP 24; TEMP 97.9; O2SAT 100
--- NOTE | 2017-10-01 14:55 | PD ---
HPI Chief Complaint: Respiratory Symptoms Time Seen by Provider: 14:36 Travel History International Travel<30 days: No Contact w/Intl Traveler<30days: No Traveled to known affect area: No History of Present Illness HPI 67-year-old male with a history of COPD, CHF, diabetes, chronic renal failure presents emergency department with complaints of shortness of breath for approximately 1 week. assists with his history. states that he has had shortness of breath for a long time however over the last week it has worsened. States he has had a productive sputum along with left sided chest pain. states that he has had a temperature of 103.4 yesterday but decreased to 99 today. In addition, states that his blood sugar has been quite elevated around 600 and states compliance with his medication. also says that he has a history of C. difficile and says that his "PCR is positive". says that the stool has smelled more foul than normal but states this is not smell like C. difficile to her. PFSH Past Medical History Arthritis: Yes Autoimmune Disease: No Heart Rhythm Problems: Yes (PACEMAKER) Cancer: No Cardiovascular Problems: Yes (PACER) High Cholesterol: Yes Coronary Artery Disease: Yes Diabetes: Yes (TYPE 1) Diminished Hearing: No Endocrine: Yes Gastrointestinal Disorders: Yes Genitourinary: No Hypertension: Yes Immune Disorder: No Implanted Vascular Access Dvce: Yes Musculoskeletal: Yes (RIGHT Foot FRACTURE) Neurologic: No Psychiatric: No Reproductive: No Respiratory: Yes Immunizations Current: Yes Thyroid Disease: No Past Surgical History Pacemaker: Yes Thoracic Surgery: No Social History Alcohol Use: No (SOCIAL ) Tobacco Use: Yes (1PPD) Substance Use: No Allergies-Medications (Allergen,Severity, Reaction): Coded Allergies: No Known Allergies (Unverified Adverse Reaction, Unknown, 07/25/17) Reported Meds & Prescriptions Reported Meds & Active Scripts Active Acidophilus/l-Sporogenes (Lactobacillus Acidophilus) 35 Million Cell-25 Million Cell Tab 1 Tab PO TID Reported Vitamin D3 (Cholecalciferol) Unknown Strength Tab 1 Tab PO DAILY Eliquis (Apixaban) 5 Mg Tab 5 Mg PO BID Protonix (Pantoprazole Sodium) 40 Mg Tab 40 Mg PO DAILY Levemir Inj (Insulin Detemir) 1,000 unit/ 10 ML Vial 10 Units SQ Q12HR Do not mix with any other Insulin. Donepezil 5 Mg Tab 5 Mg PO HS Multi Vitamin Daily (Multiple Vitamin) 1 Tab Tab 1 Tab PO DAILY Calcium 500 +D (Calcium Carbonate-Cholecalciferol) 500-400 Mg-Unit Tab 1 Tab PO DAILY Novolin R Inj (Insulin Human Regular) 1,000 Unit/10 Ml Vial 0 SQ DIRECTED Sliding Scale As Directed. Non-Aspirin (Acetaminophen) 325 Mg Tab 325 Mg PO Q4HR PRN Fluoxetine (Fluoxetine HCl) 40 Mg Cap 40 Cap PO DAILY Review of Systems Except as stated in HPI: all other systems reviewed are Neg Physical Exam Narrative GENERAL: Well-developed, cachectic appearing in no apparent distress, resting comfortably but SKIN: Focused skin assessment warm/dry. HEAD: Atraumatic. Normocephalic. EYES: Pupils equal and round. No scleral icterus. No injection or drainage. ENT: No nasal bleeding or discharge. Mucous membranes pink and moist. NECK: Trachea midline. No JVD. No lymphadenopathy CARDIOVASCULAR: Regular rate and rhythm. No murmur appreciated. RESPIRATORY: No accessory muscle use. Bilateral rhonchi present. No wheezing. GASTROINTESTINAL: Abdomen soft, non-tender, nondistended. Colostomy in place without erythema. MUSCULOSKELETAL: No obvious deformities. No clubbing. No cyanosis. No edema. NEUROLOGICAL: Awake and alert. No obvious cranial nerve deficits. Motor grossly within normal limits. Normal speech. PSYCHIATRIC: Appropriate mood and affect; insight and judgment normal. Data Data Last Documented VS Vital Signs Date Time Temp Pulse Resp B/P (MAP) Pulse Ox O2 Delivery O2 Flow Rate FiO2 10/01/17 15:08 65 18 100 10/01/17 14:52 97.9 125/56 (79) Room Air Orders Orders Complete Blood Count With Diff (10/01/17 13:40) B-Type Natriuretic Peptide (10/01/17 13:40) Act Partial Throm Time (Ptt) (10/01/17 13:40) Prothrombin Time / Inr (Pt) (10/01/17 13:40) Comprehensive Metabolic Panel (10/01/17 13:40) Chest, Pa & Lat (10/01/17 ) Electrocardiogram (10/01/17 ) Lactic Acid Sepsis Protocol (10/01/17 14:50) C Diff Toxin Pcr (10/01/17 14:50) Ceftriaxone Inj (Rocephin Inj) (10/01/17 16:00) Sodium Chlor 0.9% 1000 Ml Inj (Ns 1000 M (10/01/17 16:00) Azithromycin Inj (Zithromax Inj) (10/01/17 16:00) Vital Signs (Adult) Q4H (10/01/17 16:26) Activity Oob With Assistance (10/01/17 16:) [facility] / Telemetry .CONTINUOUS (10/01/17:) Diet Heart Healthy (10/01/17 Dinner) Sodium Chloride 0.9% Flush (Ns Flush) (10/01/17 16:30) Sodium Chloride 0.9% Flush (Ns Flush) (10/01/17 21:00) Basic Metabolic Panel (Bmp) (10/02/17 06:00) Complete Blood Count With Diff (10/02/17 06:00) Resp Oxygen Jorge C Titrat 1-4 L (10/01/17 ) Pt Request For Service (10/01/17 16:) Case Management Consult (10/01/17 16:) Naloxone Inj (Narcan Inj) (10/01/17 16:30) Ceftriaxone Inj (Rocephin Inj) (10/02/17 16:00) Azithromycin (Zithromax) (10/02/17 09:00) Lactobacillus Acidophilus (Lactinex) (10/01/17 18:00) Admit Order (Ed Use Only) (10/01/17 16:25) Labs Laboratory Tests Test 10/01/17 14:40 10/01/17 15:00 White Blood Count 14.4 TH/MM3 Red Blood Count 4.14 MIL/MM3 Hemoglobin 11.7 GM/DL Hematocrit 34.1 % Mean Corpuscular Volume 82.3 FL Mean Corpuscular Hemoglobin 28.3 PG Mean Corpuscular Hemoglobin Concent 34.4 % Red Cell Distribution Width 18.7 % Platelet Count 430 TH/MM3 Mean Platelet Volume 7.9 FL Neutrophils (%) (Auto) 80.5 % Lymphocytes (%) (Auto) 11.4 % Monocytes (%) (Auto) 6.5 % Eosinophils (%) (Auto) 0.8 % Basophils (%) (Auto) 0.8 % Neutrophils # (Auto) 11.6 TH/MM3 Lymphocytes # (Auto) 1.6 TH/MM3 Monocytes # (Auto) 0.9 TH/MM3 Eosinophils # (Auto) 0.1 TH/MM3 Basophils # (Auto) 0.1 TH/MM3 CBC Comment DIFF FINAL Differential Comment Prothrombin Time 10.0 SEC Prothromb Time International Ratio 1.0 RATIO Activated Partial Thromboplast Time 29.5 SEC Blood Urea Nitrogen 29 MG/DL Creatinine 1.07 MG/DL Random Glucose 226 MG/DL Total Protein 7.5 GM/DL Albumin 2.5 GM/DL Calcium Level 9.1 MG/DL Alkaline Phosphatase 225 U/L Aspartate Amino Transf (AST/SGOT) 33 U/L Alanine Aminotransferase (ALT/SGPT) 41 U/L Total Bilirubin 0.2 MG/DL Sodium Level 133 MEQ/L Potassium Level 4.7 MEQ/L Chloride Level 98 MEQ/L Carbon Dioxide Level 28.4 MEQ/L Anion Gap 7 MEQ/L Estimat Glomerular Filtration Rate 69 ML/MIN Lactic Acid Level 2.5 mmol/L MDM Medical Decision Making Medical Screen Exam Complete: Yes Emergency Medical Condition: Yes Differential Diagnosis Pneumonia, congestive heart failure, COPD exacerbation Narrative Course 67-year-old male with a history of COPD, CHF, diabetes, chronic renal failure presents emergency department with complaints of shortness of breath for approximately 1 week. assists with his history. states that he has had shortness of breath for a long time however over the last week it has worsened. States he has had a productive sputum along with left sided chest pain. states that he has had a temperature of 103.4 yesterday but decreased to 99 today. In addition, states that his blood sugar has been quite elevated around 600 and states compliance with his medication. also says that he has a history of C. difficile and says that his "PCR is positive". says that the stool has smelled more foul than normal but states this is not smell like C. difficile to her. Vital signs stable. BP 125/56, HR 65. EKG shows paced rhythm at rate 68. Review of EMR: Unknown when he was diagnosed with C diff but says he is not currently on medications for this issue. Pt brought in imaging studies from 09/21/2017 and 08/31/2017. 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 Labs: Leukocytosis present at 14.4, lactic 2.5, blood sugar 226. Last Impressions Chest X-Ray 10/01/17 0000 Signed Impressions: Service Date/Time: September 13:52 - CONCLUSION: There is a new Infiltrate in the left mid to left lower lung suggestive of pneumonia. John Francois MD Patient was apparently in the hospital at beginning of July for acute kidney injury, orthostatic hypotension, malnourished, elevated lactic level. He was discharged with C. difficile colitis. Further review of the EMR shows that patient had a partial colectomy ileostomy performed in June. Note that patient is no longer at [facility] as previous records state, currently lives at home with his . Will admit to the hospital for monitoring as patient requires antibiotics which may put patient at risk for further complications from C. difficile. Rocephin, azithromycin administered. 1 L normal saline administered. Patient will be admitted to for pneumonia. Sepsis Criteria SIRS Criteria (2 or more): WBC > 42789, < 4000 or > 10% bands Sepsis Criteria (SIRS+source): Infect source susp/known Severe Sepsis (+one): Lactate >2 Diagnosis Primary Impression: Pneumonia Qualified Codes: J18.9 - Pneumonia, unspecified organism Additional Impressions: EDGARDO (acute kidney injury) Lactic acidosis Admitting Information Admitting Physician Requests: Admit Condition: Stable Darby Philip Oct 01, 2017 14:55
[2017-10-01 15:14] LABS: AUTOMATED NEUTROPHIL # 11.6 TH/MM3 (1.8-7.7); BASOPHIL # 0.1 TH/MM3 (0-0.2); BASOPHIL % 0.8 % (0.0-2.0); EOSINOPHIL # 0.1 TH/MM3 (0-0.4); EOSINOPHIL % 0.8 % (0.0-4.0); HEMATOCRIT 34.1 % (39.0-51.0); HEMOGLOBIN 11.7 GM/DL (13.0-17.0); LYMPH % 11.4 % (9.0-44.0); LYMPHOCYTE # 1.6 TH/MM3 (1.0-4.8); MEAN CELL VOLUME 82.3 FL (80.0-100.0); MEAN CORPUSCULAR HEMOGLOBIN 28.3 PG (27.0-34.0); MEAN CORPUSCULAR HGB CONC 34.4 % (32.0-36.0); MEAN PLATELET VOLUME 7.9 FL (7.0-11.0); MONO % 6.5 % (0.0-8.0); MONOCYTE # 0.9 TH/MM3 (0-0.9); NEUT % 80.5 % (16.0-70.0); PLATELET COUNT 430 TH/MM3 (150-450); RED BLOOD COUNT 4.14 MIL/MM3 (4.50-5.90); RED CELL DISTRIBUTION WIDTH 18.7 % (11.6-17.2); WHITE BLOOD COUNT 14.4 TH/MM3 (4.0-11.0)
[2017-10-01] MEDS ORDERED: PROT40TA PO (15:22)
[2017-10-01] MEDS ORDERED: LEVEMIR SQ (15:22)
[2017-10-01] MEDS ORDERED: APIX5TAB PO (15:22)
[2017-10-01] MEDS ORDERED: DONE5TAB7 PO (15:22)
[2017-10-01] MEDS ORDERED: VITA100064 PO (15:22)
[2017-10-01 15:29] LABS: ALKALINE PHOSPHATASE 225 U/L (45-117); TOTAL BILIRUBIN ADULT 0.2 MG/DL (0.2-1.0); TOTAL PROTEIN 7.5 GM/DL (6.4-8.2)
[2017-10-01 15:36] LABS: ALBUMIN 2.5 GM/DL (3.4-5.0); ALT (GPT) 41 U/L (12-78); AST (GOT) 33 U/L (15-37); BICARBONATE 28.4 MEQ/L (21.0-32.0); BLOOD UREA NITROGEN 29 MG/DL (7-18); CALCIUM 9.1 MG/DL (8.5-10.1); CHLORIDE 98 MEQ/L (98-107); CREATININE 1.07 MG/DL (0.60-1.30); GLOMERULAR FILTRATION RATE 69 ML/MIN (>89); GLUCOSE,RANDOM 226 MG/DL (74-106); SODIUM (NA) 133 MEQ/L (136-145)
[2017-10-01 15:37] LABS: LACTIC ACID SEPSIS PROTOCOL 2.5 mmol/L (0.4-2.0)
[2017-10-01] MEDS ORDERED: cefTRIAXone INJ 1,000 MG in SODIUM CHLORIDE 0.9% INJ 100 ML IV ONE (16:00)
[2017-10-01] MEDS ORDERED: SODIUM CHLOR 0.9% 1000 ML INJ 1,000 ML IV ONE (16:00)
[2017-10-01] MEDS ORDERED: AZITHROMYCIN INJ 500 MG in SODIUM CHLOR 0.9% 250 ML INJ 250 ML IV ONE (16:00)
[2017-10-01] MEDS ORDERED: NALOXONE HCL 0.4 MG/ML AMP IV PUSH PRN (16:30)
[2017-10-01] MEDS ORDERED: SODIUM CHLORIDE 0.9% FLUSH 10 ML FLUSH IV FLUSH PRN (16:30)
--- NOTE | 2017-10-01 16:49 | HHI.HP ---
HPI Service [facility] Hospitalists Primary Care Physician Unknown Admission Diagnosis Pneumonia, malnutrition, h/o C. Diff Diagnoses: Travel History International Travel<30 Days: No Contact w/Intl Traveler <30 Da: No Traveled to Known Affected Are: No History of Present Illness short of breath slowly since dec but worsenign in past 10 days sits in his relciner usually but his back would hurt worse sob today while shower na ddrained everything out of me adn cant walk back has had some memory impairment lately no cough did fever with this 103- yesterday, the day before did take asa and went away no n/v/d colostomy output is same no urinary symptoms no blood in stool or urine but smell of stool is different- thinks it smells like blood and is dark little dizziness has hx of orthostatic hypotension did have vomiting at home per - but just once or twice - but pt has bad memory dc from hospital jul 29 2017 was at [facility] and dc from there about 3 weeks Review of Systems Except as stated in HPI: all other systems reviewed are Neg Past Family Social History Past Medical History dm type I afib chf- Dr Padron- was told ef was in low 30s s/p ppm for 3rd degree av block - medtronic anticoagulation on eliquis copd enlarged liver frequent renal failure aug 3111/2017 US- 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 sep 23, 2017 CT- subcapsular collection in spleen showing subacute to chronic hematoma- CTA was not done- but definite stenosis of sma or celiac is found ; has not seen vascular surgeon enlarged prostate bowel obstruction with adhesions- s/p partial colectomy and colostomy placement - february 23, 2017 Past Surgical History ppm partial colectomy with colostomy placement Allergies: Coded Allergies: No Known Allergies (Unverified Adverse Reaction, Unknown, 07/25/17) Family History mom and brother- has heart disease , arthritis brother - lupus Social History used to smoke, quit about 8 months ago no etoh abuse no drugs lives with havent driven for a while due to illness Physical Exam Vital Signs Vital Signs Date Time Temp Pulse Resp B/P (MAP) Pulse Ox O2 Delivery O2 Flow Rate FiO2 10/01/17 15:08 65 18 100 10/01/17 14:52 97.9 67 24 125/56 (79) 100 Room Air 10/01/17 13:38 98.5 85 24 85/52 (63) 98 Physical Exam GENERAL: This is a thin gentleman, not in acute distress. Forgetful. at the bedside. Looks quite weak though. Not able to eat much dinner SKIN: Tactile fever. HEAD: Atraumatic. Normocephalic. No temporal or scalp tenderness. EYES: . No scleral icterus. No injection or drainage. ENT: Nose without bleeding, purulent drainage or septal hematoma. . Airway patent. NECK: Trachea midline. No JVD . Supple, nontender, no meningeal signs. CARDIOVASCULAR: Irregularly irregular. Systolic murmur at the precordium loudest at the tricuspid area. Without gallops, or rubs. RESPIRATORY: Bilaterally decreased air entry. GASTROINTESTINAL: Abdomen soft, non-tender, nondistended. . No guarding. MUSCULOSKELETAL: Extremities without clubbing, cyanosis, or edema. No calf tenderness. NEUROLOGICAL: Awake and alert. Motor and sensory grossly within normal limits Normal speech. Laboratory Laboratory Tests Test 10/01/17 14:40 10/01/17 15:00 White Blood Count 14.4 Red Blood Count 4.14 Hemoglobin 11.7 Hematocrit 34.1 Mean Corpuscular Volume 82.3 Mean Corpuscular Hemoglobin 28.3 Mean Corpuscular Hemoglobin Concent 34.4 Red Cell Distribution Width 18.7 Platelet Count 430 Mean Platelet Volume 7.9 Neutrophils (%) (Auto) 80.5 Lymphocytes (%) (Auto) 11.4 Monocytes (%) (Auto) 6.5 Eosinophils (%) (Auto) 0.8 Basophils (%) (Auto) 0.8 Neutrophils # (Auto) 11.6 Lymphocytes # (Auto) 1.6 Monocytes # (Auto) 0.9 Eosinophils # (Auto) 0.1 Basophils # (Auto) 0.1 CBC Comment DIFF FINAL Differential Comment Prothrombin Time 10.0 Prothromb Time International Ratio 1.0 Activated Partial Thromboplast Time 29.5 Blood Urea Nitrogen 29 Creatinine 1.07 Random Glucose 226 Total Protein 7.5 Albumin 2.5 Calcium Level 9.1 Alkaline Phosphatase 225 Aspartate Amino Transf (AST/SGOT) 33 Alanine Aminotransferase (ALT/SGPT) 41 Total Bilirubin 0.2 Sodium Level 133 Potassium Level 4.7 Chloride Level 98 Carbon Dioxide Level 28.4 Anion Gap 7 Estimat Glomerular Filtration Rate 69 Lactic Acid Level 2.5 Result Diagram: 10/01/17 1440 10/01/17 1440 Imaging Last 48 hours Impressions Chest X-Ray 10/01/17 0000 Signed Impressions: Service Date/Time: September 13:52 - CONCLUSION: There is a new Infiltrate in the left mid to left lower lung suggestive of pneumonia. MD Lynsey Post VTE Risk Assessment Caprini VTE Risk Assessment: Mod/High Risk (score >= 2) Caprini Risk Assessment Model Point Value = 1 Point Value = 2 Point Value = 3 Point Value = 5 Age 41-60 Minor surgery BMI > 25 kg/m2 Swollen legs Varicose veins or History of unexplained or recurrent spontaneous Oral contraceptives or hormone replacement Sepsis (< 1 month) Serious lung disease, including pneumonia (< 1 month) Abnormal pulmonary function Acute myocardial infarction Congestive heart failure (< 1 month) History of inflammatory bowel disease Medical patient at bed rest Age 61-74 Arthroscopic surgery Major open surgery (> 45 min) Laparoscopic surgery (> 45 min) Malignancy Confined to bed (> 72 hours) Immobilizing plaster cast Central venous access Age >= 75 History of VTE Family history of VTE Factor V Leiden Prothrombin [id number] Lupus anticoagulant Anticardiolipin antibodies Elevated serum homocysteine Heparin-induced thrombocytopenia Other congenital or acquired thrombophilia Stroke (< 1 month) Elective arthroplasty Hip, pelvis, or leg fracture Acute spinal cord injury (< 1 month) Prophylaxis Regimen Total Risk Factor Score Risk Level Prophylaxis Regimen 0-1 Low Early ambulation 2 Moderate Order ONE of the following: *Sequential Compression Device (SCD) *Heparin 5000 units SQ BID 3-4 Higher Order ONE of the following medications: *Heparin 5000 units SQ TID *Enoxaparin/Lovenox 40 mg SQ daily (WT < 150 kg, CrCl > 30 mL/min) *Enoxaparin/Lovenox 30 mg SQ daily (WT < 150 kg, CrCl > 10-29 mL/min) *Enoxaparin/Lovenox 30 mg SQ BID (WT < 150 kg, CrCl > 30 mL/min) AND/OR *Sequential Compression Device (SCD) 5 or more Highest Order ONE of the following medications: *Heparin 5000 units SQ TID (Preferred with Epidurals) *Enoxaparin/Lovenox 40 mg SQ daily (WT < 150 kg, CrCl > 30 mL/min) *Enoxaparin/Lovenox 30 mg SQ daily (WT < 150 kg, CrCl > 10-29 mL/min) *Enoxaparin/Lovenox 30 mg SQ BID (WT < 150 kg, CrCl > 30 mL/min) AND *Sequential Compression Device (SCD) Assessment and Plan Assessment and Plan Impression: Left lower lobe pneumonia High-grade fevers at home. Suspect underlying bacteremia Leukocytosis with left shift Mild lactic acid acidosis Progressive dyspnea. Possible also consider commitment CHF exacerbation since symptoms are gradually since June. Report of darkish blackish colored stool per family. Will check for guaiac. Hemoglobin stable though. Patient on anticoagulation. 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 We will be cautious with antibiotics as patient has history of C. difficile as well. Influenza screen. Blood cultures 2. Echocardiogram 8 AM. BNP. Check for Hemoccult. Telemetry monitoring. Continue home medications. Watch for fluid overload. DVT prophylaxis on Eliquis. Discussed Condition With Patient, at the bedside, ER physician Marycruz Gomez MD Oct 01, 2017 16:49
[2017-10-01] MEDS ORDERED: ACETAMINOPHEN 325 MG TAB PO PRN (17:15)
[2017-10-01] MEDS ORDERED: GLUCAGON 1 MG/ML VIAL OTHER PRN (17:15)
[2017-10-01] MEDS ORDERED: DEXTROSE 50% IN WATER 50 ML VIAL(D50) IV PUSH PRN (17:15)
[2017-10-01] MEDS ORDERED: LACTOBACILLUS ACIDOPHILUS TAB PO SCH (18:00)
[2017-10-01 18:02] VITALS: BP 122/61; PULSE 72; RESP 18; TEMP 99; O2SAT 100
[2017-10-01] MEDS: LACTOBACILLUS ACIDOPHILUS TAB PO SCH (18:47)
[2017-10-01 19:30] VITALS: O2SAT 98
[2017-10-01 20:30] VITALS: BP 113/63; PULSE 76; RESP 22; O2SAT 99
[2017-10-01] MEDS: INSULIN ASPART SUPPLEMENTAL SCALE SQ SCH (21:00)
[2017-10-01 21:30] VITALS: BP_SYST 122; BP_DIAS 30; BP_DIAS 60; PULSE 72; RESP 20; O2SAT 99
[2017-10-01] MEDS: INSULIN DETEMIR 100 UNITS/ML VIAL SQ SCH (22:03)
[2017-10-01] MEDS: DONEPEZIL HCL 5 MG TAB PO SCH (22:03)
[2017-10-01] MEDS: APIXABAN 5 MG TABLET PO SCH (22:03)
[2017-10-01] MEDS: SODIUM CHLORIDE 0.9% FLUSH 10 ML FLUSH IV FLUSH SCH (22:05)
--- NOTE | 2017-10-01 23:59 | EKG ---
Date Performed: 10/01/2017 Time Performed: 14:48:50 PTAGE: 67 years EKG: ELECTRONIC ATRIAL PACEMAKER RIGHT BUNDLE BRANCH BLOCK LEFT VENTRICULAR HYPERTROPHY AND ST-T CHANGE PROBABLE ANTERIOR MYOCARDIAL INFARCTION INFERIOR MYOCARDIAL INFARCTION ABNORMAL ECG PREVIOUS TRACING : 07/25/2017 15.36 Compared to prior tracing, now atrial paced DOCTOR: Payam Jordan Interpretating Date/Time 10/01/2017 23:58:13
[2017-10-02] VITALS (9 sets, daily range): BP systolic 110–139; BP diastolic 54–65; PULSE 68–81; RESP 16–20; TEMP 97.5–99.8; O2SAT 95–100
[2017-10-02 00:11] LABS: BILIRUBIN, URINE NEG (NEG); BLOOD, URINE NEG (NEG); GLUCOSE,URINE NEG (NEG); KETONE, URINE NEG (NEG); MUCUS URINE FEW /lpf (OCC); NITRITE,URINE NEG (NEG); SQUAMOUS EPITHELIAL CELL URINE <1 /hpf (0-5); URINE COLOR YELLOW (YELLW/STRAW); URINE LEUKOCYTE ESTERASE NEG (NEG)
[2017-10-02 06:27] LABS: AUTOMATED NEUTROPHIL # 8.3 TH/MM3 (1.8-7.7); BASOPHIL # 0.1 TH/MM3 (0-0.2); BASOPHIL % 0.6 % (0.0-2.0); EOSINOPHIL # 0.1 TH/MM3 (0-0.4); EOSINOPHIL % 1.1 % (0.0-4.0); HEMATOCRIT 28.8 % (39.0-51.0); HEMOGLOBIN 9.5 GM/DL (13.0-17.0); LYMPH % 17.2 % (9.0-44.0); LYMPHOCYTE # 1.9 TH/MM3 (1.0-4.8); MEAN CELL VOLUME 81.4 FL (80.0-100.0); MEAN CORPUSCULAR HEMOGLOBIN 26.7 PG (27.0-34.0); MEAN CORPUSCULAR HGB CONC 32.8 % (32.0-36.0); MEAN PLATELET VOLUME 7.8 FL (7.0-11.0); MONO % 7.4 % (0.0-8.0); MONOCYTE # 0.8 TH/MM3 (0-0.9); NEUT % 73.7 % (16.0-70.0); PLATELET COUNT 395 TH/MM3 (150-450); RED BLOOD COUNT 3.54 MIL/MM3 (4.50-5.90); RED CELL DISTRIBUTION WIDTH 18.3 % (11.6-17.2); WHITE BLOOD COUNT 11.3 TH/MM3 (4.0-11.0)
[2017-10-02 06:51] LABS: BICARBONATE 26.1 MEQ/L (21.0-32.0); CALCIUM 8.3 MG/DL (8.5-10.1); CREATININE 0.83 MG/DL (0.60-1.30)
[2017-10-02] MEDS: INSULIN ASPART SUPPLEMENTAL SCALE SQ SCH ×4 (08:06→20:25)
[2017-10-02] MEDS: SODIUM CHLORIDE 0.9% FLUSH 10 ML FLUSH IV FLUSH SCH ×2 (08:37→20:25)
[2017-10-02] MEDS: APIXABAN 5 MG TABLET PO SCH ×2 (08:37→20:25)
[2017-10-02] MEDS: PANTOPRAZOLE SOD 40 MG DELAYED RELEASE TAB PO SCH (08:37)
[2017-10-02] MEDS: CALCIUM/VITAMIN D 250 MG/125 U TAB PO SCH (08:37)
[2017-10-02] MEDS: AZITHROMYCIN 250 MG TAB PO SCH (08:38)
[2017-10-02] MEDS: INSULIN DETEMIR 100 UNITS/ML VIAL SQ SCH ×2 (08:38→20:25)
[2017-10-02] MEDS: FLUoxetine HCL 20 MG CAP PO SCH (08:38)
[2017-10-02] MEDS: MULTIVITAMIN TAB PO SCH (08:38)
[2017-10-02] MEDS: LACTOBACILLUS ACIDOPHILUS TAB PO SCH ×3 (08:38→17:21)
[2017-10-02] MEDS ORDERED: NON-FORMULARY DRUG (Multiple Vitamin (Multi Vitamin Daily) 1 TAB) PO SCH (09:00)
[2017-10-02] MEDS ORDERED: NON-FORMULARY DRUG (Calcium Carbonate-Cholecalciferol (Calcium 500 +D) 1 TAB) PO SCH (09:00)
--- NOTE | 2017-10-02 13:31 | HHI.PR ---
Subjective Remarks Follow up pneumonia, CHF. Patient has no complaints at this time. Denies cough, dyspnea, chest pain. Has been ambulating in the [place]. Objective Vitals Vital Signs Date Time Temp Pulse Resp B/P (MAP) Pulse Ox O2 Delivery O2 Flow Rate FiO2 10/02/17 12:00 98.3 77 16 116/59 (78) 100 10/02/17 08:00 98.2 81 16 129/56 (80) 100 10/02/17 07:25 Room Air 10/02/17 04:00 99.8 68 19 113/58 (76) 97 10/02/17 00:00 97.5 72 20 110/57 (74) 95 10/01/17 21:30 72 20 122/60 (80) 99 Room Air 10/01/17 21:30 72 20 122/30 (60) 99 10/01/17 21:00 Room Air 10/01/17 20:30 76 22 113/63 (80) 99 Room Air 10/01/17 19:30 98 10/01/17 18:02 99.0 72 18 122/61 (81) 100 Room Air 10/01/17 15:08 65 18 100 10/01/17 14:52 97.9 67 24 125/56 (79) 100 Room Air 10/01/17 13:38 98.5 85 24 85/52 (63) 98 I/O 10/01/17 10/01/17 10/01/17 10/02/17 10/02/17 10/02/17 07:00 15:00 23:00 07:00 15:00 23:00 Intake Total 1850 ml Output Total 240 ml Balance 1610 ml Intake Oral 500 ml IV Total 1350 ml Output Urine Total 240 ml # Bowel Movements 0 Result Diagram: 10/02/17 0418 10/02/17 0418 Imaging Last Impressions Chest X-Ray 10/01/17 0000 Signed Impressions: Service Date/Time: September 13:52 - CONCLUSION: There is a new Infiltrate in the left mid to left lower lung suggestive of pneumonia. John Francois MD Objective Remarks General: Thin male in no acute distress. Heart: Irregular. Lungs: Clear to auscultation bilaterally. No wheezes, rales, or rhonchi. Breathing is nonlabored. Abdomen: Soft, nontender, nondistended. Extremities: No lower extremity edema. Psych: Alert and oriented. Neuro: Speech is normal. No focal deficits noted. Procedures None Urinary Catheter: No Vascular Central Line Catheter: No A/P Assessment and Plan 1. Left lower lobe pneumonia: Blood cultures are pending. Patient is stable on room air currently. Continue IV antibiotics. 2. Chronic systolic congestive heart failure: Does not appear to be in acute exacerbation. Echocardiogram pending. 3. Diabetes mellitus: Continue Levemir. Monitor Accu-Cheks and cover with sliding scale insulin. 4. Dementia: Continue Aricept. 5. DVT prophylaxis: Eliquis. 6. GI prophylaxis: Protonix. 7. History of C. difficile: C. difficile toxin negative. Discharge Planning Possible discharge home tomorrow pending clinical improvement. Karson Sylvester MD Oct 02, 2017 13:31
[2017-10-02] MEDS ORDERED: cefTRIAXone INJ 1,000 MG in SODIUM CHLORIDE 0.9% INJ 100 ML IV SCH (16:00)
--- NOTE | 2017-10-02 19:43 | ECHRPT ---
Indication: cardiomyopathy CONCLUSIONS Mildly dilated left ventricle. Mild concentric left ventricular hypertrophy. The left ventricular systolic function is moderately reduced with an estimated ejection fraction in the range of 40-45%. Doppler parameters are consistent with impaired left ventricular relaxtion (grade 1 diastolic dysfun ction). Mild mitral valve regurgitation. Mild aortic valve regurgitation. Left pleural effusion noted. BP: 113 / 58 HR: 68 Rhythm: MEASUREMENTS (Male / Female) Normal Values Technical Quality: 2D ECHO LV Diastolic Diameter PLAX 5.3 cm 4.2 - 5.9 / 3.9 - 5.3 cm LV Systolic Diameter PLAX 4.4 cm IVS Diastolic Thickness 1.2 cm 0.6 - 1.0 / 0.6 - 0.9 cm LVPW Diastolic Thickness 1.2 cm 0.6 - 1.0 / 0.6 - 0.9 cm LV Relative Wall Thickness 0.4 RV Internal Dim ED PLAX 2.9 cm LVOT Diameter 2.5 cm LA Systolic Diameter LX 3.6 cm 3.0 - 4.0 / 2.7 - 3.8 cm M-MODE Aortic Root Diameter MM 3.0 cm LA Systolic Diameter MM 3.2 cm LA Ao Ratio MM 1.1 AV Cusp Separation MM 1.0 cm DOPPLER AV Peak Velocity 233.0 cm/s AV Peak Gradient 21.7 mmHg AV Mean Gradient 11.0 mmHg AV Velocity Time Integral 46.0 cm LVOT Peak Velocity 116.0 cm/s LVOT Peak Gradient 5.4 mmHg LVOT Velocity Time Integral 22.7 cm LVOT Cardiac Index 4248.8 cm/minm AV Area Cont Eq vti 2.4 cm AV Area Cont Eq pk 2.4 cm MV Area PHT 2.0 cm Mitral E Point Velocity 45.9 cm/s Mitral A Point Velocity 64.4 cm/s Mitral E to A Ratio 0.7 LV E' Lateral Velocity 9.4 cm/s Mitral E to LV E' Lateral Ratio 4.9 LV E' Septal Velocity 3.4 cm/s Mitral E to LV E' Septal Ratio 13.4 FINDINGS LEFT VENTRICLE Mildly dilated left ventricle. Mild concentric left ventricular hypertrophy. The left ventricular systolic function is moderately reduced with an estimated ejection fraction in the range of 40-45%. Doppler parameters are consistent with impaired left ventricular relaxtion (grade 1 diastolic dysfun ction). RIGHT VENTRICLE Normal right ventricular size LEFT ATRIUM The left atrial size is normal. RIGHT ATRIUM The right atrial size is normal. ATRIAL SEPTUM Normal atrial septal thickness AORTA The aortic root and proximal ascending aorta are normal in size on limited imaging. MITRAL VALVE Grossly normal mitral valve. Mild mitral valve regurgitation. No mitral valve stenosis. AORTIC VALVE Aortic valve sclerosis is present. Mild aortic valve regurgitation. No aortic valve stenosis. TRICUSPID VALVE Grossly normal PULMONARY VALVE The pulmonary valve is not well visualized. VESSELS The inferior vena cava is normal in size. PERICARDIUM No pericardial effusion. Left pleural effusion noted Payam Jordan DO (Electronically Signed) Final Date:02 October 2017 19:43
[2017-10-02] MEDS: DONEPEZIL HCL 5 MG TAB PO SCH (20:24)
[2017-10-02] MEDS ORDERED: ACETAMINOPHEN 325 MG TAB PO ONE (23:30)
[2017-10-03] VITALS: PULSE 79
[2017-10-03 04:00] VITALS: BP 110/59; PULSE 67; PULSE 85; RESP 16; TEMP 98.2; O2SAT 96
[2017-10-03 08:00] VITALS: BP 127/65; PULSE 82; RESP 16; TEMP 98.8; O2SAT 96
[2017-10-03] MEDS: INSULIN ASPART SUPPLEMENTAL SCALE SQ SCH (08:00)
[2017-10-03 08:10] LABS: BASOPHIL # 0.1 TH/MM3 (0-0.2); BASOPHIL % 0.7 % (0.0-2.0); EOSINOPHIL # 0.1 TH/MM3 (0-0.4); EOSINOPHIL % 1.1 % (0.0-4.0); HEMATOCRIT 30.7 % (39.0-51.0); HEMOGLOBIN 10.2 GM/DL (13.0-17.0); LYMPH % 15.8 % (9.0-44.0); LYMPHOCYTE # 1.7 TH/MM3 (1.0-4.8); MEAN CELL VOLUME 81.5 FL (80.0-100.0); MEAN CORPUSCULAR HEMOGLOBIN 27.1 PG (27.0-34.0); MEAN CORPUSCULAR HGB CONC 33.2 % (32.0-36.0); MEAN PLATELET VOLUME 7.4 FL (7.0-11.0); MONO % 8.6 % (0.0-8.0); MONOCYTE # 0.9 TH/MM3 (0-0.9); NEUT % 73.8 % (16.0-70.0); PLATELET COUNT 446 TH/MM3 (150-450); RED BLOOD COUNT 3.77 MIL/MM3 (4.50-5.90); RED CELL DISTRIBUTION WIDTH 18.2 % (11.6-17.2); WHITE BLOOD COUNT 10.9 TH/MM3 (4.0-11.0)
[2017-10-03] MEDS ORDERED: CEFU1TAB18 PO (08:31)
[2017-10-03] MEDS ORDERED: AZIT500T2 PO (08:31)
--- NOTE | 2017-10-03 08:32 | HHI.DCPOC ---
Discharge Care Plan Diagnosis: (1) Chronic systolic CHF (congestive heart failure) (2) Pneumonia (3) DM (diabetes mellitus) Goals to Promote Your Health * To prevent worsening of your condition and complications * To maintain your health at the optimal level Directions to Meet Your Goals Take your medications as prescribed Follow your dietary instruction Follow activity as directed Keep your appointments as scheduled Take your immunizations and boosters as scheduled If your symptoms worsen call your PCP, if no PCP go to Urgent Care Center or Emergency Room Smoking is Dangerous to Your Health. Avoid second hand smoke Call the 24-hour hour crisis hotline for domestic abuse at Karson Sylvester MD Oct 03, 2017 08:32
--- NOTE | 2017-10-03 08:36 | HHI.PR ---
Subjective Remarks Follow up pneumonia. Patient has no complaints at this time. Denies dyspnea, chest pain. Occasional cough. Wants to go home. Objective Vitals Vital Signs Date Time Temp Pulse Resp B/P (MAP) Pulse Ox O2 Delivery O2 Flow Rate FiO2 10/03/17 04:00 Room Air 10/03/17 04:00 98.2 85 16 110/59 (76) 96 10/03/17 04:00 67 10/03/17 00:49 18 10/03/17 00:00 79 10/03/17 00:00 Room Air 10/02/17 23:49 98.8 71 16 117/58 (77) 97 10/02/17 20:25 Room Air 10/02/17 20:00 99.4 80 16 117/54 (75) 98 10/02/17 19:56 76 10/02/17 16:21 75 10/02/17 16:00 98.7 68 18 139/65 (89) 95 10/02/17 12:00 98.3 77 16 116/59 (78) 100 I/O 10/02/17 10/02/17 10/02/17 10/03/17 10/03/17 10/03/17 07:00 15:00 23:00 07:00 15:00 23:00 Intake Total 1850 ml 240 ml 480 ml Output Total 240 ml 0 ml 325 ml Balance 1610 ml 240 ml 155 ml Intake Oral 500 ml 240 ml 480 ml IV Total 1350 ml Output Urine Total 240 ml 0 ml 225 ml Stool Total 100 ml # Bowel Movements 0 Result Diagram: 10/03/17 0739 10/02/17 0418 Imaging Last Impressions Chest X-Ray 10/01/17 0000 Signed Impressions: Service Date/Time: September 13:52 - CONCLUSION: There is a new Infiltrate in the left mid to left lower lung suggestive of pneumonia. John Francois MD Objective Remarks General: Thin male in no acute distress. Heart: Irregular. Lungs: Clear to auscultation bilaterally. No wheezes, rales, or rhonchi. Breathing is nonlabored. Abdomen: Soft, nontender, nondistended. Extremities: No lower extremity edema. Psych: Alert and oriented. Neuro: Speech is normal. No focal deficits noted. Procedures None Urinary Catheter: No Vascular Central Line Catheter: No A/P Assessment and Plan 1. Left lower lobe pneumonia: Blood cultures are negative so far. Patient is stable on room air. Switch to oral antibiotics. 2. Chronic systolic congestive heart failure: Does not appear to be in acute exacerbation. Echocardiogram shows EF 40-45% (previous EF reportedly ~30%). 3. Diabetes mellitus: Continue Levemir. Monitor Accu-Cheks and cover with sliding scale insulin. 4. Dementia: Continue Aricept. 5. DVT prophylaxis: Eliquis. 6. GI prophylaxis: Protonix. 7. History of C. difficile: C. difficile toxin negative. Discharge Planning Discharge home in stable condition. Follow up with PCP, cardiology. Heart healthy, diabetic diet. Activity as tolerated. Karson Sylvester MD Oct 03, 2017 08:36
[2017-10-03] MEDS: INSULIN DETEMIR 100 UNITS/ML VIAL SQ SCH (09:00)
[2017-10-03] MEDS: FLUoxetine HCL 20 MG CAP PO SCH (09:17)
[2017-10-03] MEDS: LACTOBACILLUS ACIDOPHILUS TAB PO SCH (09:17)
[2017-10-03] MEDS: CALCIUM/VITAMIN D 250 MG/125 U TAB PO SCH (09:17)
[2017-10-03] MEDS: AZITHROMYCIN 250 MG TAB PO SCH (09:17)
[2017-10-03] MEDS: APIXABAN 5 MG TABLET PO SCH (09:18)
[2017-10-03] MEDS: PANTOPRAZOLE SOD 40 MG DELAYED RELEASE TAB PO SCH (09:18)
[2017-10-03] MEDS: MULTIVITAMIN TAB PO SCH (09:18)
== END 2017-10-03 09:49 | disposition home or self-care (01) | DRG 194 ==
LOC: NEPC 13:05 → NEDA 16:31 → OBSVTOIN 17:15 → NEDA 21:09 → NEDH 10-02 04:10 → N04A 10-02 15:15
PROVIDERS: ADMIT Family Medicine; ATTEND Family Medicine
DX: J18.9 Pneumonia, unspecified organism (principal); N17.9 Acute kidney failure, unspecified; E46 Unspecified protein-calorie malnutrition; E87.2 Acidosis; I13.0 Hypertensive heart and chronic kidney disease with heart failure and stage 1 through stage 4 chronic kidney disease, or unspecified chronic kidney disease; I50.22 Chronic systolic (congestive) heart failure; E10.22 Type 1 diabetes mellitus with diabetic chronic kidney disease; I48.91 Unspecified atrial fibrillation; F03.90 Unspecified dementia, unspecified severity, without behavioral disturbance, psychotic disturbance, mood disturbance, and anxiety; E78.00 Pure hypercholesterolemia, unspecified; I25.10 Atherosclerotic heart disease of native coronary artery without angina pectoris; N18.9 Chronic kidney disease, unspecified; M19.90 Unspecified osteoarthritis, unspecified site; J44.0 Chronic obstructive pulmonary disease with (acute) lower respiratory infection; Z68.1 Body mass index [BMI] 19.9 or less, adult; Z93.3 Colostomy status; Z95.0 Presence of cardiac pacemaker; Z87.891 Personal history of nicotine dependence; Z79.4 Long term (current) use of insulin
CPT/HCPCS: 71046; 80048; 80053; 81001; 82272; 82948; 83605; 83880; 85025; 85610; 85730; 87040; 87493; 87804; 93005; 93306; 99285; J0456; J0696; J1815; J7030; J7050

== ENCOUNTER 2018-02-25 14:01 | Inpatient (IN) ==
[2018-02-25] MEDS ORDERED: Sod Chloride 0.9% Inj 1,000 ML IV.SIG ONE (14:18)
--- NOTE | 2018-02-25 14:35 | ED ---
HPI General Chief complaint: Recheck/Abnormal Lab/Rx Stated complaint: Diabetic complaint Time Seen by Provider: 02/25/18 14:07 Source: patient and EMS Mode of arrival: EMS Limitations: no limitations History of Present Illness HPI narrative: Patient is a 67-year-old male presenting to the emergency department for evaluation of weakness and hyperglycemia. Patient is a type I diabetic, he reports noncompliance with insulin and monitoring his blood glucose. He states he has been increasingly weak for the last several days. He states that he cannot get up out of bed at times. He reports poor oral intake. He denies any fever, chills, abdominal pain, chest pain, shortness of breath, dizziness. Patient reports that he does feel depressed but denies suicidality. EMS stated the patient's blood glucose was 500 on their arrival. He he received 300 cc of IV normal saline and blood glucose was reassessed at 600. His blood glucose initially was checked on patient's glucometer, the second reading was obtained by EVAC's glucometer. MD complaint: Weakness, hyperglycemia Onset (ago): day(s) Associated symptoms: loss of appetite, malaise and weakness Related Data Home Medications Medication Instructions Recorded Confirmed ascorbic acid (vitamin C) [Vitamin 1,000 mg PO BID 02/25/18 02/25/18 C] aspirin [Aspir-Low] 81 mg PO DAILY 02/25/18 02/25/18 carvedilol 6.25 mg PO BID 02/25/18 02/25/18 cholecalciferol (vitamin D3) 400 unit PO DAILY 02/25/18 02/25/18 [Vitamin D3] donepezil 5 mg PO DAILY 02/25/18 02/25/18 duloxetine 30 mg PO DAILY 02/25/18 02/25/18 furosemide 20 mg PO DAILY 02/25/18 02/25/18 gabapentin 300 mg PO TID 02/25/18 02/25/18 mirtazapine 15 mg PO DAILY 02/25/18 02/25/18 pantoprazole 40 mg PO DAILY 02/25/18 02/25/18 potassium chloride [Klor-Con M10] 10 meq PO DAILY 02/25/18 02/25/18 Allergies Allergy/AdvReac Type Severity Reaction Status Date / Time No Known Allergies AdvReac Unknown NONE Uncoded 02/25/18 14:20 Review of Systems Except as stated in HPI: all other systems reviewed are negative Constitutional Reports fatigue, Reports malaise, Reports poor appetite, Reports weakness and Reports weight loss Psychiatric Reports depression, Denies homicidal ideation and Denies suicidal ideation [facility] Medical History Medical History Atrial fibrillation (Chronic) CHF (congestive heart failure) (Chronic) CKD (chronic kidney disease) (Chronic) Cardiomyopathy (Chronic) Chronic malnutrition (Chronic) Colitis (Chronic) Depression (Chronic) Diabetes mellitus type 1 (Chronic) Hypertension (Chronic) Memory loss (Chronic) Noncompliance (Chronic) Pacemaker (Chronic) Surgical History Surgical History History of colectomy (Chronic) Social History Social History Substance History: No History of Abuse Smoking Status: Light tobacco smoker Tobacco Type: Cigarettes How Often Do You Have a Drink Containing Alcohol: Never Recent Travel in [facility] within the Last 8 Weeks: No Recent Out of Country Travel within the Last 8 Weeks: No Immunization History Tetanus Immunization: <5 Years Hx Influenza Vaccine This Season: Yes Exam Narrative Exam Narrative: GENERAL: Thin, well-developed, male. Presenting in no acute distress. SKIN: Focused skin assessment warm/dry. HEAD: Atraumatic. Normocephalic. EYES: Pupils equal and round. No scleral icterus. No injection or drainage. ENT: No nasal bleeding or discharge. Mucous membranes pink and moist. NECK: Trachea midline. No JVD. CARDIOVASCULAR: Regular rate and rhythm. No murmur appreciated. RESPIRATORY: No accessory muscle use. Clear to auscultation. Breath sounds equal bilaterally. GASTROINTESTINAL: Abdomen soft, non-tender, nondistended. Hepatic and splenic margins not palpable. Positive bowel sounds, no rebound, no guarding. Colostomy in the right lower quadrant MUSCULOSKELETAL: No obvious deformities. No clubbing. No cyanosis. No edema. NEUROLOGICAL: Awake and alert. No obvious cranial nerve deficits. Motor grossly within normal limits. Normal speech. PSYCHIATRIC: Depressed mood and flat affect; insight and judgment normal. Course Initial Documented Vital Signs Temperature 97.9 F 02/25/18 14:09 Pulse Rate 65 02/25/18 14:09 Respiratory Rate 20 02/25/18 14:09 Blood Pressure 112/60 02/25/18 14:09 Pulse Oximetry 98 02/25/18 14:09 Last Documented Vital Signs Temperature 97.9 F 02/25/18 14:20 Pulse Rate 66 02/25/18 14:20 Respiratory Rate 20 02/25/18 14:20 Blood Pressure 112/60 02/25/18 14:20 Pulse Oximetry 98 02/25/18 14:20 Medical Decision Making KIMMIE Attestation KIMMIE supervised visit: Yes Attestation: I, Dr. Hassan, have reviewed the advance practice practitioner's documentation and am in agreement, met with the patient face to face, made the diagnosis, and the medical decision making was done by me. *My assessment and Findings: Hyperosmolar nonketotic hyperglycemia. Patient also has opacity in the left lung. Patient reports that he has been coughing up brown phlegm for several days. He has been started on antibiotics. He will be a formal CT scan order to rule out effusion. Case was discussed with the [facility] hospitalist who is agreement with admission. [facility] Narrative Medical decision making narrative: Patient is a type I diabetic presenting for evaluation of hyperglycemia and weakness. He has a history of noncompliance. Labs and imaging ordered and pending. IV access was established by EMS. Patient was placed on telemetry monitoring continuous pulse oximetry. Beta hydroxybutyrate elevated at 3.13. BUN and creatinine are elevated at 34/ 1.43, this is also new when compared to prior. Patient was given 10 units regular insulin IV 1 dose. Chest x-ray shows possible loculated hemothorax and recommends CT scan of the chest. CT scan was ordered and patient was placed on antibiotics empirically. Updated hospitalist on this finding. Patient admitted for hyperosmolar state, acute renal failure, pneumonia. Discussed plan of care with my attending physician. Lab Data Lab results reviewed: Yes I reviewed the patient's lab results. Result diagrams: 02/25/18 14:23 02/25/18 14:23 Lab Results 02/25/18 02/25/18 02/25/18 Range/Units 14:23 14:23 14:23 WBC 9.1 (4.0-11.0) th/mm3 RBC 3.73 L (4.50-5.90) mil/mm3 Hgb 10.0 L (13.0-17.0) gm/dL Hct 31.3 L (39.0-51.0) % MCV 84.0 (80.0-100.0) fL MCH 26.9 L (27.0-34.0) pg MCHC 32.0 (32.0-36.0) % RDW 17.5 H (11.6-17.2) % Plt Count 422 (150-450) th/mm3 MPV 7.9 (7.0-11.0) fL Neut % (Auto) 73.8 H (16.0-70.0) % Lymph % (Auto) 15.8 (9.0-44.0) % [place] % (Auto) 7.7 (0.0-8.0) % Eos % (Auto) 1.3 (0.0-4.0) % Baso % (Auto) 1.4 (0.0-2.0) % Neut # (Auto) 6.7 (1.8-7.7) th/mm3 Lymph # (Auto) 1.4 (1.0-4.8) th/mm3 [place] # (Auto) 0.7 (0.0-0.9) th/mm3 Eos # (Auto) 0.1 (0.0-0.4) th/mm3 Baso # (Auto) 0.1 (0.0-0.2) th/mm3 WBC Differential . Differential Comment Auto diff final Sodium 132 L (136-145) meq/L Potassium 4.5 (3.5-5.1) meq/L Chloride 96 L (98-107) meq/L Carbon Dioxide 23.5 (21.0-32.0) meq/L Anion Gap 13 (5-15) meq/L BUN 34 H (7-18) mg/dL Creatinine 1.43 H (0.60-1.30) mg/dL Estimated GFR 49 L (>89) mL/min POC Glucose (68-110) mg/dl Random Glucose 480 H* (74-106) mg/dL Lactic Acid (0.4-2.0) mmol/L Calcium 8.7 (8.5-10.1) mg/dL Magnesium 2.2 (1.5-2.5) mg/dL Total Bilirubin 0.3 (0.2-1.0) mg/dL AST 9 L (15-37) U/L ALT 14 (12-78) U/L Alkaline Phosphatase 116 (45-117) U/L Troponin I Less than 0.02 L (0.02-0.05) ng/mL Total Protein 7.1 (6.4-8.2) g/dL Albumin 1.8 L (3.4-5.0) g/dL Lipase 83 (73-393) U/L Beta-Hydroxybutyric Acd 3.13 H (0.00-0.39) mmol/L Urine Color (Yellw/Straw) Urine Clarity (Clear) Urine pH (5.0-8.5) Ur Specific [place] (1.002-1.035) Urine Protein (Neg-Trace) mg/dL Urine Glucose (UA) (Negative) mg/dL Urine Ketones (Negative) mg/dL Urine Occult Blood (Negative) Urine Nitrate (Negative) Urine Bilirubin (Negative) Urine Urobilinogen (Less than 2) mg/dL Ur Leukocyte Esterase (Negative) Urine RBC (0-3) /hpf Urine WBC (0-5) /hpf Micro UA Comment Urine Culture Comments 02/25/18 02/25/18 02/25/18 Range/Units 14:30 15:57 16:17 WBC (4.0-11.0) th/mm3 RBC (4.50-5.90) mil/mm3 Hgb (13.0-17.0) gm/dL Hct (39.0-51.0) % MCV (80.0-100.0) fL MCH (27.0-34.0) pg MCHC (32.0-36.0) % RDW (11.6-17.2) % Plt Count (150-450) th/mm3 MPV (7.0-11.0) fL Neut % (Auto) (16.0-70.0) % Lymph % (Auto) (9.0-44.0) % [place] % (Auto) (0.0-8.0) % Eos % (Auto) (0.0-4.0) % Baso % (Auto) (0.0-2.0) % Neut # (Auto) (1.8-7.7) th/mm3 Lymph # (Auto) (1.0-4.8) th/mm3 [place] # (Auto) (0.0-0.9) th/mm3 Eos # (Auto) (0.0-0.4) th/mm3 Baso # (Auto) (0.0-0.2) th/mm3 WBC Differential Differential Comment Sodium (136-145) meq/L Potassium (3.5-5.1) meq/L Chloride (98-107) meq/L Carbon Dioxide (21.0-32.0) meq/L Anion Gap (5-15) meq/L BUN (7-18) mg/dL Creatinine (0.60-1.30) mg/dL Estimated GFR (>89) mL/min POC Glucose 461 H* (68-110) mg/dl Random Glucose (74-106) mg/dL Lactic Acid 1.3 (0.4-2.0) mmol/L Calcium (8.5-10.1) mg/dL Magnesium (1.5-2.5) mg/dL Total Bilirubin (0.2-1.0) mg/dL AST (15-37) U/L ALT (12-78) U/L Alkaline Phosphatase (45-117) U/L Troponin I (0.02-0.05) ng/mL Total Protein (6.4-8.2) g/dL Albumin (3.4-5.0) g/dL Lipase (73-393) U/L Beta-Hydroxybutyric Acd (0.00-0.39) mmol/L Urine Color Straw (Yellw/Straw) Urine Clarity Clear (Clear) Urine pH 5.0 (5.0-8.5) Ur Specific [place] 1.023 (1.002-1.035) Urine Protein Negative (Neg-Trace) mg/dL Urine Glucose (UA) 500 or greater (Negative) mg/dL Urine Ketones 20 (Negative) mg/dL Urine Occult Blood Small H (Negative) Urine Nitrate Negative (Negative) Urine Bilirubin Negative (Negative) Urine Urobilinogen Less than 2 (Less than 2) mg/dL Ur Leukocyte Esterase Negative (Negative) Urine RBC Less than 1 (0-3) /hpf Urine WBC Less than 1 (0-5) /hpf Micro UA Comment Culture not ind Urine Culture Comments Culture not ind Imaging Data Radiologist's impression: Chest X-Ray 02/25/18 14:18 CONCLUSION: 1. Worsening left mid to lower lung zone pleural parenchymal opacities correlating to sharply delineated posterior mediastinal pleural based opacity on prior chest radiographs and associated left lower lobe airspace disease. Given the short term development of the pleural-based opacity, between 2017 and 10/01/2017, suspect a loculated hemothorax with associated compressive atelectasis. Consider chest CT examination for better evaluation. Discharge Plan Discharge Disposition Patient Disposition: 30 Still Patient Discharge Condition Condition: Stable Discharge Details Diagnosis: Acute renal failure (ARF), Pneumonia, Diabetic hyperosmolar non-ketotic state Physicians Team ED Provider: Michael Hassan ED Midlevel Provider: Minal Ricketts Primary Care Provider: UNKNOWN, Attending Provider: Aaliyah Campbell Other Providers: Yolandaa,Mir Discharge Interventions Interventions: Vital Signs Last Done: 02/25/18 14:20 Status ED Status: Admitted Patient
--- NOTE | 2018-02-25 14:44 | XR ---
EXAM DATE: 02/25/2018 2:34 PM EDT AGE/SEX: 67 years / Male INDICATIONS: Dyspnea CLINICAL DATA: This is the patient's initial encounter. Patient reports that signs and symptoms have been present for 1 day and indicates a pain score of 0/10. MEDICAL/SURGICAL HISTORY: Cardiovascular disease. Pacemaker. COMPARISON: POI, XR CHEST PA AND LAT, 02/12/2018. . FINDINGS: Worsening pleural parenchymal opacities in the left mid to lower lung zones. This correlates with a s harply delineated posterior mediastinal pleural based opacity on prior exams and associated left lowe r lobe airspace disease. Redemonstration of calcified granuloma in the right upper lobe. Cardiomedias tinal contours are stable with stable dual lead pacemaker in place. Osseous structures are intact. CONCLUSION: 1. Worsening left mid to lower lung zone pleural parenchymal opacities correlating to sharply deline ated posterior mediastinal pleural based opacity on prior chest radiographs and associated left lower lobe airspace disease. Given the short term development of the pleural-based opacity, between 018 and 10/01/2017, suspect a loculated hemothorax with associated compressive atelectasis. Consider ch est CT examination for better evaluation. Electronically signed by: Maynor Shepard MD 02/25/2018 2:42 PM EDT
[2018-02-25 14:53] LABS: Baso # (Auto) 0.1 th/mm3 (0.0-0.2); Baso % (Auto) 1.4 % (0.0-2.0); Eos # (Auto) 0.1 th/mm3 (0.0-0.4); Eos % (Auto) 1.3 % (0.0-4.0); Hematocrit 31.3 % (39.0-51.0); Lymph # (Auto) 1.4 th/mm3 (1.0-4.8); Lymph % (Auto) 15.8 % (9.0-44.0); Mean Corpuscular Hemoglobin 26.9 pg (27.0-34.0); Mean Platelet Volume 7.9 fL (7.0-11.0); Mono # (Auto) 0.7 th/mm3 (0.0-0.9); Mono % (Auto) 7.7 % (0.0-8.0); Neut # (Auto) 6.7 th/mm3 (1.8-7.7); Neut % (Auto) 73.8 % (16.0-70.0); Platelet Count 422 th/mm3 (150-450); Red Blood Count 3.73 mil/mm3 (4.50-5.90); Red Cell Distribution Width 17.5 % (11.6-17.2); White Blood Count 9.1 th/mm3 (4.0-11.0)
[2018-02-25 15:40] LABS: Alanine Aminotransferase 14 U/L (12-78); Albumin 1.8 g/dL (3.4-5.0); Alkaline Phosphatase 116 U/L (45-117); Anion Gap 13 meq/L (5-15); Aspartate Aminotransferase 9 U/L (15-37); Beta Hydroxybutyric Acid 3.13 mmol/L (0.00-0.39); Blood Urea Nitrogen 34 mg/dL (7-18); Calcium 8.7 mg/dL (8.5-10.1); Carbon Dioxide 23.5 meq/L (21.0-32.0); Chloride 96 meq/L (98-107); Glomerular Filtration Rate 49 mL/min (>89); Lipase 83 U/L (73-393); Magnesium 2.2 mg/dL (1.5-2.5); Potassium 4.5 meq/L (3.5-5.1); Sodium 132 meq/L (136-145); Total Protein 7.1 g/dL (6.4-8.2)
[2018-02-25 15:45] LABS: Glucose,Random 480 mg/dL (74-106)
[2018-02-25 16:18] LABS: Bilirubin,Urine Negative (Negative); Clarity,Urine Clear (Clear); Color,Urine Straw (Yellw/Straw); Glucose,Urine (UA) 500 or Greater mg/dL (Negative); Leukocyte Esterase,Urine Negative (Negative); Nitrite,Urine Negative (Negative); Specific Gravity,Urine 1.023 (1.002-1.035)
[2018-02-25] MEDS ORDERED: Azithromycin Inj 500 MG in Sodium Chlor 0.9% Inj 250 ML IV.SIG STA (17:49)
[2018-02-25] MEDS ORDERED: Bisacodyl 10 MG Supp RECTAL PRN (17:59)
[2018-02-25] MEDS ORDERED: Temazepam 15 MG Capsule PO PRN (17:59)
[2018-02-25] MEDS ORDERED: Sodium Chloride 0.45 % Inj 1,000 ML IV.CONT SCH (18:00)
[2018-02-25] MEDS ORDERED: Dextrose 50% in Water 50 ML Vial IV.PUSH PRN (18:01)
--- NOTE | 2018-02-25 19:04 | CT ---
EXAM DATE: 02/25/2018 6:48 PM EDT AGE/SEX: 67 years / Male INDICATIONS: Evaluate for pleural effusion. Abnormal chest x-ray. CLINICAL DATA: This is the patient's initial encounter. Patient reports that signs and symptoms have been present for 1 day and indicates a pain score of 0/10. MEDICAL/SURGICAL HISTORY: Cardiovascular disease. Hypertension. Diabetes mellitus type II. Colit is Pacemaker. Colon resection. Colostomy. RADIATION DOSE: 5.98 CTDI (mGy) COMPARISON: No prior exams available for comparison. TECHNIQUE: Multiple contiguous axial images were obtained through the chest without contrast. Image s were obtained in suspended respiration using multiple row detector helical technique. Using automa kathryn exposure control and adjustment of the mA and/or kV according to patient size, radiation dose was kept as low as reasonably achievable to obtain optimal diagnostic quality images. DICOM format imag e data is available electronically for review and comparison. FINDINGS: There is a loculated fluid collection in the lower left hemithorax measuring about 8 cm in diameter. Locules of air are present within the fluid collection. There is associated pleural thickening and no nloculated small pleural effusion as well. There is patchy airspace disease in the left lung in both the lower lobe and upper lobe with some peribronchial thickening and distal airway disease most ankur cteristic of bronchopneumonia. There is also mild bronchopneumonia in the right upper lobe with some peribronchial thickening and distal airway disease as well as patchy groundglass opacity. Mildly prominent mediastinal lymph nodes. Pacer leads in right atrium and right ventricle. Mild comp ression deformity in upper thoracic spine which appears remote. CONCLUSION: 1. 8 cm loculated fluid collection in the lower left hemithorax also containing multiple locules of air. Differential diagnosis includes peripheral lung access or empyema. There is an associated small nonloculated left pleural effusion and fairly extensive bronchopneumonia in the left lung and to a le sser extent in the right upper lobe. Electronically signed by: Conner Steel MD 02/25/2018 7:02 PM EDT
--- NOTE | 2018-02-25 19:34 | P.HPIM ---
History of Present Illness Service: [facility] Primary Care Physician: UNKNOWN Chief Complaint: Generalized weakness, uncontrolled blood glucose History of Present Illness: 67-year-old male with a medical history significant for atrial fibrillation, congestive heart failure, type 1 diabetes, depression who presented to the hospital for worsening weakness and severe hyperglycemia. History is obtained from the patient and his at bedside. Patient admitted that he has not been compliant with his medications for the past few weeks because he did not feel like he had any energy. His reports that he stated he just wanted to but the patient himself denies this. The patient admitted to very poor appetite and no energy to the point that he was falling at times when he tries to get up on his own. EMS noted blood glucose of 500 on day of arrival. The patient currently denies suicidal ideation. His reports that he would sleep up to 20 hours a day. Patient's also reported that he has been short of breath with a persistent cough. Although the patient himself again denies this. No reports of fevers. His chest x-ray shows worsening left mid to lower lung zone pleural parenchymal opacities. Possible hemothorax with compressive atelectasis. A CT of the chest is suggested and is pending at this time. Patient continues to smoke about 2 cigarettes a day. He has been a lifelong smoker of a pack per day. Regarding atrial fibrillation, patient and his reports he stopped taking Eliquis because it was costing them $400. 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 - Diagnosis (1) Left pulmonary lesion (2) Acute renal failure (ARF) (3) Diabetic hyperosmolar non-ketotic state (4) Diabetes (5) Chronic heart failure (6) Depression (7) Atrial fibrillation Inpatient Certification: I certify that the inpatient services were ordered in accordance with Medicare regulations governing the order. This includes certification that hospital inpatient services are reasonable and necessary and in the case of services not specified as inpatient-only under 42 CFR 419.22(n), that they are appropriately provided as inpatient services in accordance to with the 2-midnight benchmark under 43 CFR 412.3(e) Estimated Total Length of Stay (Days): 2 Plans for Post Hospital Care: Not yet determined Review of Systems Constitutional: Reports anorexia, Reports daytime sleepiness, Reports fatigue, Reports weight loss Eyes: Denies blurry vision, Denies double vision Cardiovascular: Denies chest pain, Denies fainting Respiratory: Reports cough, Reports shortness of breath, Denies wheezing Gastrointestinal: Denies abdominal pain, Denies change in bowel habits Musculoskeletal: Reports body aches, Reports decreased muscle mass, Reports muscle weakness Skin/Breast: Denies bleeding lesions Hematologic/Lymphatic: Denies easy bleeding, Denies easy bruising PMFSH - History History 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, 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 - Medical History Medical History: Medical History (Last Reviewed 02/25/18 @ 19:07 by Aaliyah Campbell MD) CHF (congestive heart failure) CKD (chronic kidney disease) Colitis Depression Diabetes mellitus type 1 Hypertension Memory loss Noncompliance Pacemaker Atrial fibrillation Cardiomyopathy Chronic malnutrition - Surgical History Surgical History: Surgical History (Last Reviewed 02/25/18 @ 19:08 by Aaliyah Campbell MD) History of colectomy - Family History Family History: Family History (Last Updated 02/25/18 @ 19:08 by Aaliyah Campbell MD) Other Family history non-contributory - Tobacco History Tobacco Use In Past 30 Days: Yes Smoking Status: Light tobacco smoker Tobacco Type: Cigarettes - Alcohol History How Often Do You Have a Drink Containing Alcohol: Never - Substance Use History Substance History: No History of Abuse - Travel History Recent Travel in the [place] Within the Last 8 Weeks: No Recent Travel Out of the Country Within the Last 8 Weeks: No - Immunization History Tetanus Immunization: <5 Years Hx Influenza Vaccine This Season: Yes Medications and Allergies Active Medications: Active Medications Acetaminophen (Tylenol) 650 mg PO Q4H PRN PRN Reason: Temp > 100.4 Al Hydroxide/Mg Hydroxide (Milk Of Magngabriela Liq) 30 ml PO Q12H PRN PRN Reason: Mild Constipation Ascorbic Acid (Vitamin C) 1,000 mg PO BID RAFY Aspirin (Ecotrin) 81 mg PO DAILY RAFY Bisacodyl (Dulcolax Supp) 10 mg RECTAL DAILY PRN PRN Reason: SEVERE CONSITIPATION Carvedilol (Coreg) 6.25 mg PO BID RAFY Dextrose (D50w Vial) 50 ml IV.PUSH UNSCH PRN PRN Reason: PER HYPOGLYCEMIA PROTOCOL Donepezil HCl (Aricept) 5 mg PO DAILY RAFY Duloxetine HCl (Cymbalta) 30 mg PO DAILY RAFY Glucagon (Glucagon Inj) 1 mg OTHER PRN PRN PRN Reason: for Hypoglycemia Protocol Sodium Chloride (1/2 Normal Saline Inj) 1,000 mls @ 75 mls/hr IV.CONT .[id number] [facility] Stop: 02/26/18 07:19 Last Admin: 02/25/18 18:28 Dose: 75 mls/hr Insulin Aspart (Novolog Insulin Correctional Sugar Inj) 0 unit SQ ACHS RAFY; Protocol Insulin Detemir (Levemir Inj) 10 unit SQ BID RAFY Lactulose (Lactulose Liq) 30 ml PO DAILY PRN PRN Reason: SEVERE CONSITIPATION Pantoprazole Sodium (Protonix) 40 mg PO DAILY [facility] Sennosides (Senokot) 17.2 mg PO Q12H PRN PRN Reason: Moderate Constipation Sodium Chloride (Ns Flush) 2 ml IV.FLUSH PRN PRN PRN Reason: FLUSH AFTER USING IV ACCESS Last Admin: 02/25/18 15:54 Dose: 2 ml Temazepam (Restoril) 15 mg PO HS PRN PRN Reason: INSOMNIA Vitamin D (Vitamin D3) 400 unit PO DAILY [facility] Allergies Allergy/AdvReac Type Severity Reaction Status Date / Time No Known Allergies AdvReac Unknown NONE Uncoded 02/25/18 14:20 Home Medications Medication Instructions Recorded Confirmed Type ascorbic acid (vitamin C) [Vitamin 1,000 mg PO BID 02/25/18 02/25/18 History C] aspirin [Aspir-Low] 81 mg PO DAILY 02/25/18 02/25/18 History carvedilol 6.25 mg PO BID 02/25/18 02/25/18 History cholecalciferol (vitamin D3) 400 unit PO DAILY 02/25/18 02/25/18 History [Vitamin D3] donepezil 5 mg PO DAILY 02/25/18 02/25/18 History duloxetine 30 mg PO DAILY 02/25/18 02/25/18 History furosemide 20 mg PO DAILY 02/25/18 02/25/18 History gabapentin 300 mg PO TID 02/25/18 02/25/18 History mirtazapine 15 mg PO DAILY 02/25/18 02/25/18 History pantoprazole 40 mg PO DAILY 02/25/18 02/25/18 History potassium chloride [Klor-Con M10] 10 meq PO DAILY 02/25/18 02/25/18 History Exam Vital signs: Vital Signs 02/25/18 14:09 02/25/18 14:20 Temperature 97.9 F 97.9 F Pulse Rate 65 66 Respiratory Rate 20 20 Blood Pressure 112/60 112/60 Pulse Oximetry 98 98 Intake & Output 02/24/18 02/25/18 02/25/18 18:59 06:59 18:59 Intake Total 1100 / 1100 Balance 1100 / 1100 Weight 63.503 kg Intake: IV 1100 / 1100 NS Inj 1,000 ML @ Wide Open IV. 1000 / 1000 SIG BOLUS ONE Rx#:[id number] Rocephin Inj 2,000 MG In NS Inj 100 / 100 100 ML @ 200 mls/hr IV.SIG STAT STA Rx#:[id number] Narrative: CONSTITUTIONAL/GENERAL: 67-year-old male who appears older than stated age, generalized weakness. SKIN: No jaundice, rashes, or concerning lesions. Not diaphoretic. HEAD: Atraumatic. Normocephalic. EYES: Pupils equal and round and reactive. Extra ocular motions are intact. No scleral icterus. No injection or drainage. ENT: Hearing grossly normal. Nose without drainage. Throat without visible erythema, exudates, masses, or lesions. NECK: Trachea midline. Neck is supple, non-tender. No palpable thyroid enlargement or nodularity. CARDIOVASCULAR: Normal rate and irregular rhythm. 2 out of 6 JUAN RESPIRATORY/CHEST: Clear to auscultation on the right, markedly diminished breath sounds in the left mid and lower lung lopez. GASTROINTESTINAL: Abdomen soft, non-tender, non-distended. Ostomy in place MUSCULOSKELETAL: Extremities without clubbing, cyanosis, or edema. NEUROLOGICAL: Awake and alert. Follows commands. Move all extremities spontaneously. Generalized weakness PSYCHIATRIC: Mood is flat, appeared depressed. Results - Labs CBC & Chem 7: 02/25/18 14:23 02/25/18 14:23 Labs: Short CBC 02/25/18 Range/Units 14:23 WBC 9.1 (4.0-11.0) th/mm3 Hgb 10.0 L (13.0-17.0) gm/dL Hct 31.3 L (39.0-51.0) % Plt Count 422 (150-450) th/mm3 BMP 02/25/18 14:23 Sodium 132 L Potassium 4.5 Chloride 96 L Carbon Dioxide 23.5 BUN 34 H Creatinine 1.43 H Calcium 8.7 Cardiac Enzymes 02/25/18 Range/Units 14:23 Troponin I Less than 0.02 L (0.02-0.05) ng/mL Liver Function 02/25/18 Range/Units 14:23 Total Bilirubin 0.3 (0.2-1.0) mg/dL AST 9 L (15-37) U/L ALT 14 (12-78) U/L Alkaline Phosphatase 116 (45-117) U/L Albumin 1.8 L (3.4-5.0) g/dL Urine 02/25/18 Range/Units 15:57 Urine Color Straw (Yellw/Straw) Urine Clarity Clear (Clear) Urine pH 5.0 (5.0-8.5) Ur Specific [place] 1.023 (1.002-1.035) Urine Protein Negative (Neg-Trace) mg/dL Urine Glucose (UA) 500 or greater (Negative) mg/dL - Imaging Impressions Chest X-Ray 02/25/18 14:18 CONCLUSION: 1. Worsening left mid to lower lung zone pleural parenchymal opacities correlating to sharply delineated posterior mediastinal pleural based opacity on prior chest radiographs and associated left lower lobe airspace disease. Given the short term development of the pleural-based opacity, between 2017 and 10/01/2017, suspect a loculated hemothorax with associated compressive atelectasis. Consider chest CT examination for better evaluation. Caprini VTE Risk Assessment Caprini VTE Risk Assessment: Moderate/High Risk (score >= 2) Caprini Risk Assessment Model: Point Value = 1 Point Value = 2 Point Value = 3 Point Value = 5 Age 41-60 Minor surgery BMI > 25 kg/m2 Swollen legs Varicose veins or History of unexplained or recurrent spontaneous Oral contraceptives or hormone replacement Sepsis (< 1 month) Serious lung disease, including pneumonia (< 1 month) Abnormal pulmonary function Acute myocardial infarction Congestive heart failure (< 1 month) History of inflammatory bowel disease Medical patient at bed rest Age 61-74 Arthroscopic surgery Major open surgery (> 45 min) Laparoscopic surgery (> 45 min) Malignancy Confined to bed (> 72 hours) Immobilizing plaster cast Central venous access Age >= 75 History of VTE Family history of VTE Factor V Leiden Prothrombin [id number] Lupus anticoagulant Anticardiolipin antibodies Elevated serum homocysteine Heparin-induced thrombocytopenia Other congenital or acquired thrombophilia Stroke (< 1 month) Elective arthroplasty Hip, pelvis, or leg fracture Acute spinal cord injury (< 1 month) Prophylaxis Regimen: Total Risk Factor Score Risk Level Prophylaxis Regimen 0-1 Low Early ambulation 2 Moderate Order ONE of the following: *Sequential Compression Device (SCD) *Heparin 5000 units SQ BID 3-4 Higher Order ONE of the following medications: *Heparin 5000 units SQ TID *Enoxaparin/Lovenox 40 mg SQ daily (WT < 150 kg, CrCl > 30 mL/min) *Enoxaparin/Lovenox 30 mg SQ daily (WT < 150 kg, CrCl > 10-29 mL/min) *Enoxaparin/Lovenox 30 mg SQ BID (WT < 150 kg, CrCl > 30 mL/min) AND/OR *Sequential Compression Device (SCD) 5 or more Highest Order ONE of the following medications: *Heparin 5000 units SQ TID (Preferred with Epidurals) *Enoxaparin/Lovenox 40 mg SQ daily (WT < 150 kg, CrCl > 30 mL/min) *Enoxaparin/Lovenox 30 mg SQ daily (WT < 150 kg, CrCl > 10-29 mL/min) *Enoxaparin/Lovenox 30 mg SQ BID (WT < 150 kg, CrCl > 30 mL/min) AND *Sequential Compression Device (SCD) Assessment and Plan - Assessment (1) Left pulmonary lesion Code(s): R91.1 - Solitary pulmonary nodule Status: Acute (2) Acute renal failure (ARF) Code(s): N17.9 - Acute kidney failure, unspecified Status: Acute (3) Diabetic hyperosmolar non-ketotic state Code(s): E11.00 - Type 2 diabetes mellitus with hyperosmolarity without nonketotic hyperglycemic-hyperosmolar coma (NKHHC) Status: Acute (4) Diabetes Code(s): E11.9 - Type 2 diabetes mellitus without complications Status: Acute (5) Chronic heart failure Code(s): I50.9 - Heart failure, unspecified Status: Acute (6) Depression Code(s): F32.9 - Major depressive disorder, single episode, unspecified Status : Acute (7) Atrial fibrillation Code(s): I48.91 - Unspecified atrial fibrillation Status: Acute - Plan 67-year-old male with: Probable hyper osmolar hyperglycemic state: - Check osmolality - Gentle IV fluid Hydration given known systolic CHF - Sliding scale insulin with accuchecks. Restart Levemir 10 units BID. Left pulmonary lesion: ?Pneumonia. He has been treated for pneumonia previously for a similar lesion in the same area. He has a history of trauma to that area and chest tubes per his . - Patient received Rocephin and Azithromycin in the ED. we will continue antibiotics for now - X-ray images reviewed and noted above. Will obtain chest CT and decide on antibiotics course Atrial fibrillation/chronic systolic heart failure: -Continue Coreg for rate control. He needs to be anticoagulated with Coumadin since he could not afford Eliquis. Will wait for CT scan. If he does not need a biopsy, will plan to start Coumadin. He will need outpatient follow-up. -Lasix currently on hold given relative dehydration. -He is not on an BLAZE inhibitor at home. BP is currently borderline and will hold off on starting this medication. Depression: His reports that he has been telling her he just wants to . He admits to feeling very depressed which he states contributes to his decision to not take his medications. He tells me today he does not want to . -Continue home dose antidepressants. -He does not have an outpatient psychiatry. Consult psychiatry to assist with optimizing his medications. Acute renal failure: -Continue gentle hydration as above. -Repeat BMP in a.m. Mild cognitive deficit: Per his , he has been having issues with memory. He was started empirically on Aricept by his PCP. -Continue the same. Recommend outpatient cognitive testing with neurology. Patient reports PCP is working on referral. GI prophylaxis: Stool softener PRN constipation. Patient has an ostomy DVT PPx: Heparin. (2) Acute renal failure (ARF) Qualifiers: Acute renal failure type: unspecified Qualified Code(s): N17.9 - Acute kidney failure, unspecified
[2018-02-25] MEDS: Insulin Detemir Inj 1,000 UNIT/10 ML Vial SQ SCH ×2 (19:38→21:22)
[2018-02-25] MEDS: Acetaminophen 325 MG Tablet PO PRN (19:56)
[2018-02-25] MEDS: Ascorbic Acid 500 MG Tablet PO SCH (20:00)
[2018-02-25] MEDS: Carvedilol 6.25 MG Tablet PO SCH (20:00)
[2018-02-25] MEDS: Insulin NovoLOG Aspart Correctional Sugar Inj SQ SCH (21:21)
[2018-02-25 22:33] LABS: Hemoglobin A1c 15.8 % (4.3-6.0)
[2018-02-26 07:36] LABS: Baso # (Auto) 0.1 th/mm3 (0.0-0.2); Baso % (Auto) 0.6 % (0.0-2.0); Eos # (Auto) 0.2 th/mm3 (0.0-0.4); Eos % (Auto) 1.9 % (0.0-4.0); Hematocrit 31.9 % (39.0-51.0); Hemoglobin 10.3 gm/dL (13.0-17.0); Lymph # (Auto) 1.5 th/mm3 (1.0-4.8); Lymph % (Auto) 13.4 % (9.0-44.0); Mean Corpuscular HGB Conc 32.3 % (32.0-36.0); Mean Corpuscular Hemoglobin 26.4 pg (27.0-34.0); Mean Corpuscular Volume 81.9 fL (80.0-100.0); Mean Platelet Volume 7.7 fL (7.0-11.0); Mono # (Auto) 0.9 th/mm3 (0.0-0.9); Neut # (Auto) 8.7 th/mm3 (1.8-7.7); Neut % (Auto) 76.1 % (16.0-70.0); Platelet Count 438 th/mm3 (150-450); Red Cell Distribution Width 17.2 % (11.6-17.2); White Blood Count 11.4 th/mm3 (4.0-11.0)
[2018-02-26 07:58] LABS: Carbon Dioxide 28.1 meq/L (21.0-32.0); Potassium 3.7 meq/L (3.5-5.1)
--- NOTE | 2018-02-26 08:51 | ECG ---
Date Performed: 02/25/2018 Time Performed: 14:44:10 PTAGE: 67 years EKG: ELECTRONIC ATRIAL PACEMAKER RIGHT BUNDLE BRANCH BLOCK LEFT ANTERIOR FASCICULAR BLOCK LEFT V ENTRICULAR HYPERTROPHY AND ST-T CHANGE ABNORMAL ECG NO PREVIOUS TRACING DOCTOR: Bernabe Lomax Interpretating Date/Time 02/26/2018 08:50:17
[2018-02-26] MEDS: Insulin NovoLOG Aspart Correctional Sugar Inj SQ SCH ×4 (09:12→20:57)
[2018-02-26] MEDS: Insulin Detemir Inj 1,000 UNIT/10 ML Vial SQ SCH ×2 (09:13→20:57)
[2018-02-26] MEDS: Mirtazapine 15 MG Tablet PO SCH (09:14)
[2018-02-26] MEDS: Azithromycin 250 MG Tablet PO SCH (09:14)
[2018-02-26] MEDS: Ascorbic Acid 500 MG Tablet PO SCH ×2 (09:14→20:57)
[2018-02-26] MEDS: Carvedilol 6.25 MG Tablet PO SCH ×2 (09:17→20:57)
--- NOTE | 2018-02-26 12:21 | P.PN ---
Subjective Interval history: 67-year-old male admitted for hyperglycemia and pneumonia. There was an area in the left lower lobe that was suspicious for mass, CT confirms this is a loculated fluid and air-filled collection differential includes empyema or abscess. Patient states he is breathing better and feels great compared to yesterday. Physical Exam Vital signs: Vital Signs 02/25/18 14:09 02/25/18 14:20 02/25/18 19:08 Temperature 97.9 F 97.9 F 98.4 F Pulse Rate 65 66 82 Respiratory Rate 20 20 18 Blood Pressure 112/60 112/60 123/60 Pulse Oximetry 98 98 97 02/25/18 20:00 02/26/18 00:00 02/26/18 04:00 Temperature 98.8 F 98.9 F Pulse Rate 68 65 69 Respiratory Rate 18 18 Blood Pressure 99/51 L 104/54 L Pulse Oximetry 97 95 93 L 02/26/18 08:00 02/26/18 10:47 Temperature 98.3 F Pulse Rate 62 Respiratory Rate 24 Blood Pressure 105/57 L Pulse Oximetry 95 95 Intake & Output 02/25/18 02/26/18 02/26/18 18:59 06:59 18:59 Intake Total 1100 / 1100 120 / 120 Output Total 300 / 300 Balance 1100 / 1100 -180 / -180 Weight 63.503 kg 68.6 kg Intake: IV 1100 / 1100 NS Inj 1,000 ML @ Wide Open IV. 1000 / 1000 SIG BOLUS ONE Rx#:[id number] Rocephin Inj 2,000 MG In NS Inj 100 / 100 100 ML @ 200 mls/hr IV.SIG STAT STA Rx#:[id number] Oral 120 / 120 Output: Urine 300 / 300 Other: Date of Last Bowel Movement 02/26/18 Weight On Admission 67.9 kg Narrative: GENERAL: AAOx3, no acute distress SKIN: Warm and dry. No rashes HEAD: Atruamtic, normocephalic. EYES: No scleral icterus. No injection or drainage. ENT: Moist mucous membranes, patent nares, no erythema of oropharynx. NECK: Supple, trachea midline. No JVD or lymphadenopathy. Normal thyroid. CARDIOVASCULAR: Regular rate and rhythm. No murmurs, gallops, or rubs. RESPIRATORY: Crackles in left base, upper airways clear. No accessory muscle use. GASTROINTESTINAL: Right sided colostomy bag ,abdomen soft, non-tender, nondistended, normal active bowel sounds MUSCULOSKELETAL: No cyanosis, or edema. NEURO: CN II-XII grossly intact, no focal deficits, no slurring of speech Results - Labs CBC & Chem 7: 02/26/18 05:57 02/26/18 05:57 Laboratory Results - last 24 hr 02/25/18 02/25/18 02/25/18 14:23 14:23 14:23 WBC 9.1 RBC 3.73 L Hgb 10.0 L Hct 31.3 L MCV 84.0 MCH 26.9 L MCHC 32.0 RDW 17.5 H Plt Count 422 MPV 7.9 Neut % (Auto) 73.8 H Lymph % (Auto) 15.8 Emmons % (Auto) 7.7 Eos % (Auto) 1.3 Baso % (Auto) 1.4 Neut # (Auto) 6.7 Lymph # (Auto) 1.4 Emmons # (Auto) 0.7 Eos # (Auto) 0.1 Baso # (Auto) 0.1 WBC Differential . Differential Comment Auto diff final Sodium 132 L Potassium 4.5 Chloride 96 L Carbon Dioxide 23.5 Anion Gap 13 BUN 34 H Creatinine 1.43 H Estimated GFR 49 L POC Glucose Random Glucose 480 H* Hemoglobin A1c Osmolality Lactic Acid Calcium 8.7 Magnesium 2.2 Total Bilirubin 0.3 AST 9 L ALT 14 Alkaline Phosphatase 116 Troponin I Less than 0.02 L Total Protein 7.1 Albumin 1.8 L Lipase 83 Beta-Hydroxybutyric Acd 3.13 H Urine Color Urine Clarity Urine pH Ur Specific [place] [employer] Urine Protein Urine Glucose (UA) Urine Ketones Urine Occult Blood Urine Nitrate Urine Bilirubin Urine Urobilinogen Ur Leukocyte Esterase Urine RBC Urine WBC Micro UA Comment Urine Culture Comments 02/25/18 02/25/18 02/25/18 14:23 14:30 15:57 WBC RBC Hgb Hct MCV MCH MCHC RDW Plt Count MPV Neut % (Auto) Lymph % (Auto) Emmons % (Auto) Eos % (Auto) Baso % (Auto) Neut # (Auto) Lymph # (Auto) Emmons # (Auto) Eos # (Auto) Baso # (Auto) WBC Differential Differential Comment Sodium Potassium Chloride Carbon Dioxide Anion Gap BUN Creatinine Estimated GFR POC Glucose Random Glucose Hemoglobin A1c 15.8 H Osmolality Lactic Acid 1.3 Calcium Magnesium Total Bilirubin AST ALT Alkaline Phosphatase Troponin I Total Protein Albumin Lipase Beta-Hydroxybutyric Acd Urine Color Straw Urine Clarity Clear Urine pH 5.0 Ur Specific [place] [employer] 1.023 Urine Protein Negative Urine Glucose (UA) 500 or greater Urine Ketones 20 Urine Occult Blood Small H Urine Nitrate Negative Urine Bilirubin Negative Urine Urobilinogen Less than 2 Ur Leukocyte Esterase Negative Urine RBC Less than 1 Urine WBC Less than 1 Micro UA Comment Culture not ind Urine Culture Comments Culture not ind 02/25/18 02/25/18 02/25/18 16:17 19:55 21:26 WBC RBC Hgb Hct MCV MCH MCHC RDW Plt Count MPV Neut % (Auto) Lymph % (Auto) Emmons % (Auto) Eos % (Auto) Baso % (Auto) Neut # (Auto) Lymph # (Auto) Emmons # (Auto) Eos # (Auto) Baso # (Auto) WBC Differential Differential Comment Sodium Potassium Chloride Carbon Dioxide Anion Gap BUN Creatinine Estimated GFR POC Glucose 461 H* 273 H Random Glucose Hemoglobin A1c Osmolality 300 H Lactic Acid Calcium Magnesium Total Bilirubin AST ALT Alkaline Phosphatase Troponin I Total Protein Albumin Lipase Beta-Hydroxybutyric Acd Urine Color Urine Clarity Urine pH Ur Specific [place] [employer] Urine Protein Urine Glucose (UA) Urine Ketones Urine Occult Blood Urine Nitrate Urine Bilirubin Urine Urobilinogen Ur Leukocyte Esterase Urine RBC Urine WBC Micro UA Comment Urine Culture Comments 02/26/18 02/26/18 02/26/18 05:57 05:57 07:35 WBC 11.4 H RBC 3.90 L Hgb 10.3 L Hct 31.9 L MCV 81.9 MCH 26.4 L MCHC 32.3 RDW 17.2 Plt Count 438 MPV 7.7 Neut % (Auto) 76.1 H Lymph % (Auto) 13.4 Emmons % (Auto) 8.0 Eos % (Auto) 1.9 Baso % (Auto) 0.6 Neut # (Auto) 8.7 H Lymph # (Auto) 1.5 Emmons # (Auto) 0.9 Eos # (Auto) 0.2 Baso # (Auto) 0.1 WBC Differential . Differential Comment Auto diff final Sodium 136 Potassium 3.7 D Chloride 100 Carbon Dioxide 28.1 Anion Gap 8 BUN 26 H Creatinine 0.99 Estimated GFR 75 L POC Glucose 154 H Random Glucose 103 D Hemoglobin A1c Osmolality Lactic Acid Calcium 9.0 Magnesium Total Bilirubin AST ALT Alkaline Phosphatase Troponin I Total Protein Albumin Lipase Beta-Hydroxybutyric Acd Urine Color Urine Clarity Urine pH Ur Specific [place] [employer] Urine Protein Urine Glucose (UA) Urine Ketones Urine Occult Blood Urine Nitrate Urine Bilirubin Urine Urobilinogen Ur Leukocyte Esterase Urine RBC Urine WBC Micro UA Comment Urine Culture Comments 02/26/18 11:16 WBC RBC Hgb Hct MCV MCH MCHC RDW Plt Count MPV Neut % (Auto) Lymph % (Auto) Emmons % (Auto) Eos % (Auto) Baso % (Auto) Neut # (Auto) Lymph # (Auto) Emmons # (Auto) Eos # (Auto) Baso # (Auto) WBC Differential Differential Comment Sodium Potassium Chloride Carbon Dioxide Anion Gap BUN Creatinine Estimated GFR POC Glucose 323 H Random Glucose Hemoglobin A1c Osmolality Lactic Acid Calcium Magnesium Total Bilirubin AST ALT Alkaline Phosphatase Troponin I Total Protein Albumin Lipase Beta-Hydroxybutyric Acd Urine Color Urine Clarity Urine pH Ur Specific [place] [employer] Urine Protein Urine Glucose (UA) Urine Ketones Urine Occult Blood Urine Nitrate Urine Bilirubin Urine Urobilinogen Ur Leukocyte Esterase Urine RBC Urine WBC Micro UA Comment Urine Culture Comments - Imaging Impressions Chest X-Ray 02/25/18 14:18 CONCLUSION: 1. Worsening left mid to lower lung zone pleural parenchymal opacities correlating to sharply delineated posterior mediastinal pleural based opacity on prior chest radiographs and associated left lower lobe airspace disease. Given the short term development of the pleural-based opacity, between 2017 and 10/01/2017, suspect a loculated hemothorax with associated compressive atelectasis. Consider chest CT examination for better evaluation. Chest CT 02/25/18 17:48 CONCLUSION: 1. 8 cm loculated fluid collection in the lower left hemithorax also containing multiple locules of air. Differential diagnosis includes peripheral lung access or empyema. There is an associated small nonloculated left pleural effusion and fairly extensive bronchopneumonia in the left lung and to a lesser extent in the right upper lobe. Assessment and Plan - Assessment (1) Left pulmonary lesion Code(s): R91.1 - Solitary pulmonary nodule Status: Acute (2) Acute renal failure (ARF) Code(s): N17.9 - Acute kidney failure, unspecified Status: Acute (3) Diabetic hyperosmolar non-ketotic state Code(s): E11.00 - Type 2 diabetes mellitus with hyperosmolarity without nonketotic hyperglycemic-hyperosmolar coma (NKHHC) Status: Acute (4) Diabetes Code(s): E11.9 - Type 2 diabetes mellitus without complications Status: Acute (5) Chronic heart failure Code(s): I50.9 - Heart failure, unspecified Status: Acute (6) Depression Code(s): F32.9 - Major depressive disorder, single episode, unspecified Status : Acute (7) Atrial fibrillation Code(s): I48.91 - Unspecified atrial fibrillation Status: Acute - Plan 67-year-old male with: Left pulmonary pneumonia with loculations No solid mass on CT, fluid-filled loculations, differential includes empyema versus abscess Patient reports a history of trauma and chest tubes Continue Rocephin and azithromycin Pulmonary consult to assist with treatment plan Hyperglycemia and type 2 diabetes Resolved overnight, blood sugar is 154 this morning Continue Accu-Cheks with sliding scale insulin coverage Diabetic diet CHF with A. fib Continue Coreg Patient could not afford Eliquis, start Coumadin if no procedures are to be done by pulmonology Lasix held due to dehydration BP meds held due to hypotension h/o depression reports patient has been very depressed at home and just wants to . Continue home dose antidepressants Psychiatry consult pending, appreciate assistance Mild cognitive deficit Most likely result of depression Patient was started empirically on Aricept by his PCP Follow-up as outpatient for cognitive testing DVT Prophylaxis Heparin (2) Acute renal failure (ARF) Qualifiers: Acute renal failure type: unspecified Qualified Code(s): N17.9 - Acute kidney failure, unspecified
--- NOTE | 2018-02-26 18:26 | P.CONPSY ---
Provisional Diagnosis Admission Date: February 25, 2018 17:46 [place].: Patient stress disorder, single episode, moderate History of Present Illness Service: Psychiatry Consult date: 02/26/18 Requesting Physician: Aaliyah Campbell Reason for Consult: Depression Primary Care Provider: UNKNOWN Family Provider: UNKNOWN Chief Complaint: Generalized weakness, uncontrolled blood glucose History of Present Illness: Patient is a 67 y/o man, , domiciled with , has 4 adult children, retired, , with a past psychiatric history of depression, no previous psychiatric admissions, no previous suicide attempt or self interest behavior, with a past medical history significant for diabetes, Afib, CHF, who was admitted to the medical floor due to possible left pulmonary lesion, ARF, diabetic hyperosmolar non-ketotic state which psychiatry was consulted for evaluation of depression. As per chart patient had noncompliance medication, felt depressed with denying any suicide ideations. There was concern for possible worsening depressive symptoms which psychiatry was consulted for assistance in medication management for the same. Patient was found lying hospital bed noted to be calm, cooperative, noted be good spirits. Patient states that he had been admitted to the hospital due to his diabetes stating that he has had multiple hospitalizations for this in the past and that he had been noncompliant with his medications for 1 week. Patient states that he does not know why he had stopped taking medications stating that he just laid in bed and is having no motivation for the past month. Patient reports having increased amount of sleep for the past couple of months, with no change in appetite, decrease in motivation, energy and feeling "down". Patient denies any changes in concentration, feelings of guilt, denying feeling helpless or hopeless or any suicidal ideations. Patient states that he has been feeling that there was "nothing to do" for the past 2-3 months and that he usually would enjoy motorcycling and kayaking for the weather does not permit to do these things. He states that he has started on antidepressant medication by his primary care doctor but has not been helping for the past 5 months he feels that he is continuing to feel depressed with poor motivation but states being able to attend outpatient follow-up appointments. Patient states that he would like to be able to get back to enjoying his life and that he is motivated now to continue his treatment. Patient this time reports feeling "okay", denies any SI, HI, AVH or delusions. Rest of psychiatric ROS negative. Family psychiatric history: Denies, no suicides in the family. Past psychiatric history: Previous psychiatric diagnosis of depression, no previous psychiatric admissions, suicide attempt or self interest behavior. Patient has no outpatient mental health provider, managed primarily by primary care doctor, no history of abuse. Patient reports current medications include duloxetine and mirtazapine. Substance use history: Patient reports tobacco use 1 or 2 cigarettes per day, occasional alcohol use, as well as occasional marijuana use last use was weeks ago. Patient denies use of any other drugs. Past medical history: Diabetes, A. fib, CHF Allergies: Denies Social history: , has 4 adult children, domiciled with , retired, born and raised in [place] currently determined for the past 5 years. Patient reports being a , no legal history, no access to firearms. Review of Systems All other systems reviewed negative except as stated in HPI Constitutional: Reports lack of energy PMFSH - History History 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 - Medical History Medical History: Medical History (Last Reviewed 02/25/18 @ 19:07 by Aaliyah Campbell MD) CHF (congestive heart failure) CKD (chronic kidney disease) Colitis Depression Diabetes mellitus type 1 Hypertension Memory loss Noncompliance Pacemaker Atrial fibrillation Cardiomyopathy Chronic malnutrition - Surgical History Surgical History: Surgical History (Last Reviewed 02/25/18 @ 19:08 by Aaliyah Campbell MD) History of colectomy - Family History Family History: Family History (Last Updated 02/25/18 @ 19:08 by Aaliyah Campbell MD) Other Family history non-contributory - Tobacco History Second Hand Smoke Exposure: Yes Tobacco Use In Past 30 Days: Yes Smoking Status: Light tobacco smoker Tobacco Type: Cigarettes - Alcohol History How Often Do You Have a Drink Containing Alcohol: Never - Substance Use History Substance History: No History of Abuse - Travel History Recent Travel in the [place] Within the Last 8 Weeks: No Recent Travel Out of the Country Within the Last 8 Weeks: No - Immunization History Tetanus Immunization: <5 Years Hx Influenza Vaccine This Season: Yes Medications and Allergies Active Medications: Active Medications Acetaminophen (Tylenol) 650 mg PO Q4H PRN PRN Reason: Pain 1-8, or Temp > 100.4 Last Admin: 02/25/18 19:56 Dose: 650 mg Al Hydroxide/Mg Hydroxide (Milk Of Magnesia Liq) 30 ml PO Q12H PRN PRN Reason: Mild Constipation Ascorbic Acid (Vitamin C) 1,000 mg PO BID [facility] Last Admin: 02/26/18 09:14 Dose: 1,000 mg Aspirin (Ecotrin) 81 mg PO DAILY [facility] Last Admin: 02/26/18 09:14 Dose: 81 mg Azithromycin (Zithromax) 500 mg PO DAILY [facility] Last Admin: 02/26/18 09:14 Dose: 500 mg Bisacodyl (Dulcolax Supp) 10 mg RECTAL DAILY PRN PRN Reason: SEVERE CONSITIPATION Carvedilol (Coreg) 6.25 mg PO BID [facility] Last Admin: 02/26/18 09:17 Dose: 6.25 mg Dextrose (D50w Vial) 50 ml IV.PUSH UNSCH PRN PRN Reason: PER HYPOGLYCEMIA PROTOCOL Donepezil HCl (Aricept) 5 mg PO DAILY [facility] Last Admin: 02/26/18 09:14 Dose: 5 mg Glucagon (Glucagon Inj) 1 mg OTHER PRN PRN PRN Reason: for Hypoglycemia Protocol Ceftriaxone Sodium 1,000 mg/ (Sodium Chloride) 100 mls @ 200 mls/hr IV.SIG Q24H [facility] Last Admin: 02/26/18 09:13 Dose: 200 mls/hr Insulin Aspart (Novolog Insulin Correctional Sugar Inj) 0 unit SQ ACHS [facility]; Protocol Last Admin: 02/26/18 13:18 Dose: 10 unit Insulin Detemir (Levemir Inj) 10 unit SQ BID [facility] Last Admin: 02/26/18 09:13 Dose: 10 unit Lactulose (Lactulose Liq) 30 ml PO DAILY PRN PRN Reason: SEVERE CONSITIPATION Mirtazapine (Remeron) 15 mg PO DAILY [facility] Last Admin: 02/26/18 09:14 Dose: 15 mg Pantoprazole Sodium (Protonix) 40 mg PO DAILY [facility] Last Admin: 02/26/18 09:14 Dose: 40 mg Sennosides (Senokot) 17.2 mg PO Q12H PRN PRN Reason: Moderate Constipation Sodium Chloride (Ns Flush) 2 ml IV.FLUSH PRN PRN PRN Reason: FLUSH AFTER USING IV ACCESS Last Admin: 02/25/18 15:54 Dose: 2 ml Temazepam (Restoril) 15 mg PO HS PRN PRN Reason: INSOMNIA Venlafaxine HCl (Effexor Xr) 37.5 mg PO DAILY [facility] Vitamin D (Vitamin D3) 400 unit PO DAILY [facility] Last Admin: 02/26/18 09:14 Dose: 400 unit Allergies Allergy/AdvReac Type Severity Reaction Status Date / Time No Known Allergies AdvReac Unknown NONE Uncoded 02/25/18 14:20 Home Medications Medication Instructions Recorded Confirmed Type ascorbic acid (vitamin C) [Vitamin 1,000 mg PO BID 02/25/18 02/25/18 History C] aspirin [Aspir-Low] 81 mg PO DAILY 02/25/18 02/25/18 History carvedilol 6.25 mg PO BID 02/25/18 02/25/18 History cholecalciferol (vitamin D3) 400 unit PO DAILY 02/25/18 02/25/18 History [Vitamin D3] donepezil 5 mg PO DAILY 02/25/18 02/25/18 History duloxetine 30 mg PO DAILY 02/25/18 02/25/18 History furosemide 20 mg PO DAILY 02/25/18 02/25/18 History gabapentin 300 mg PO TID 02/25/18 02/25/18 History mirtazapine 15 mg PO DAILY 02/25/18 02/25/18 History pantoprazole 40 mg PO DAILY 02/25/18 02/25/18 History potassium chloride [Klor-Con M10] 10 meq PO DAILY 02/25/18 02/25/18 History Exam Vital signs: Vital Signs 02/25/18 19:08 02/25/18 20:00 02/26/18 00:00 Temperature 98.4 F 98.8 F Pulse Rate 82 68 65 Respiratory Rate 18 18 Blood Pressure 123/60 99/51 L Pulse Oximetry 97 97 95 02/26/18 04:00 02/26/18 08:00 02/26/18 10:47 Temperature 98.9 F 98.3 F Pulse Rate 69 67 Respiratory Rate 18 24 Blood Pressure 104/54 L 105/57 L Pulse Oximetry 93 L 95 95 02/26/18 12:00 02/26/18 16:00 Temperature 98.8 F 99.2 F Pulse Rate 67 69 Respiratory Rate 20 20 Blood Pressure 118/56 L 132/58 L Pulse Oximetry 96 95 Intake & Output 02/25/18 02/26/18 02/26/18 18:59 06:59 18:59 Intake Total 1100 / 1100 120 / 120 Output Total 300 / 300 Balance 1100 / 1100 -180 / -180 Weight 63.503 kg 68.6 kg Intake: IV 1100 / 1100 NS Inj 1,000 ML @ Wide Open IV. 1000 / 1000 SIG BOLUS ONE Rx#:[id number] Rocephin Inj 2,000 MG In NS Inj 100 / 100 100 ML @ 200 mls/hr IV.SIG STAT STA Rx#:[id number] Oral 120 / 120 Output: Urine 300 / 300 Other: Date of Last Bowel Movement 02/26/18 Weight On Admission 67.9 kg Narrative: Patient not noted to be acute distress, no signs of gross motor of maladies, signs of EPS or tremor, no psychomotor agitation or retardation. - Constitutional no acute distress, cooperative Mental Status Examination Appearance: Appropriate Consciousness: Alert Orientation: Person, Place, Date/Time Speech: Unremarkable Language: Adequate Fund of Knowledge: Inadequate Attention and Concentration: Adequate Memory: Unremarkable Mood: Sad Affect: Sad Thought Process & Associations: Intact, Goal directed, Linear Thought Content: Appropriate Hallucination Type: None Delusion Type: None Suicidal Ideation: No Suicidal Plan: No Suicidal Intention: No Homicidal Ideation: No Homicidal Plan: No Homicidal Intention: No Insight: Fair Judgment: Impulsive Assessment and Plan - Assessment (1) Major depressive disorder, single episode, moderate Code(s): F32.1 - Major depressive disorder, single episode, moderate Status: Acute - Plan Plan: Estimated LOS: [] days Patient is a 59-year-old man who carries a diagnosis of depression, no previous psychiatric admissions, no previous suicide attempt or self- injurious behavior, with past medical history significant for diabetes, A. fib, CHF, admitted to the medical service for diabetic hyperosmolar nonketotic state , ARF, and possible left pulmonary lesion which patient was noted to have depressive symptoms which psychiatry was consulted for evaluation. Patient this time continues with depressive symptoms but denying any suicide ideations and marginal level of functioning with current antidepressant regimen. Recommend discontinuing Cymbalta as this has had partial response patient continues with depressive symptoms and starting venlafaxine XL 37.5 mg daily with upward titration as needed for depression. Continue mirtazapine 50 mg p.o. at bedtime. Patient this time would benefit from referral to an outpatient mental health provider for continuity of care as well as possibility of referring patient to a therapist/counselor for supportive psychotherapy. Patient this time does not require psychiatric inpatient level of care. Consult appreciated. Justification for Continued Inpatient Stay: At risk of further decompensation a lower level of care.
--- NOTE | 2018-02-26 20:42 | MB ---
cc: Jovani Deleon MD, Arjun D MD DATE: 02/26/2018 REQUESTING PHYSICIAN: Roman Stubbs MD REASON FOR CONSULTATION: Evaluation for pneumonia and pleural effusion. HISTORY OF PRESENT ILLNESS: Mr. Gutierrez is a 67-year-old male with history of diabetes mellitus, hypertension, congestive heart failure and pacemaker placement. The patient has not been feeling well for the last few days. He denies any fever or chills. He feels that he has been sleeping too much. Has cough, no sputum production. No chest discomfort. Because of these symptoms, he was brought to the hospital. He had a CT scan of the chest done, which shows that he has an 8 cm loculated fluid collection in the left hemithorax containing multiple locules of air, possible peripheral lung abscess or empyema. He also has a non-loculated small pleural effusion. His CBC shows WBC count 11.4, hemoglobin 10.3, hematocrit 34.9, MCV 81.9, platelet count 438. Sodium 136, potassium 3.7, chloride 100, CO2 of 28, BUN 26, creatinine 0.99. PAST MEDICAL HISTORY: Significant for history of COPD, coronary artery disease, congestive heart failure, pacemaker placement, atrial fibrillation, diabetes mellitus, anxiety/depression. CURRENT MEDICATIONS: 1. Aspirin 81 mg a day. 2. Zithromax 500 mg a day. 3. Coreg 6.25 mg twice a day. 4. Rocephin 1 g a day. 5. Donepezil 5 mg a day. 6. Insulin coverage Levemir insulin 10 units 7. Mirtazapine 15 mg a day. 8. Protonix 40 mg a day. 9. Temazepam 15 mg a day. 10. Effexor 37.5 mg a day. ALLERGIES: NO KNOWN DRUG ALLERGIES. SOCIAL HISTORY: He is . 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 He has a history of smoking and cut down to a few cigarettes a day. FAMILY HISTORY: He has 4 children. REVIEW OF SYSTEMS: Normally, he is up, around and active. He has been sleeping a lot. Denies any weight loss. No chest pain. PHYSICAL EXAMINATION: GENERAL: Pleasant, elderly male, not in acute distress, but looked toxic. VITAL SIGNS: Blood pressure 132/58, heart rate 69, respirations 20, temperature 99.2. HEENT: Pupils are equal and reactive to light. Oral mucosa and nasal mucosa normal. NECK: JVP not raised. CHEST: Equal bilaterally, has decreased breath sounds at the left base. HEART: S1, S2 normal. ABDOMEN: Benign. EXTREMITIES: No edema. ASSESSMENT AND PLAN: 1. Left lung pneumonia with some locules of air in it. Possible abscess or empyema. 2. Small pleural effusion. 3. Atrial fibrillation. 4. Diabetes mellitus. 5. Anxiety and depression. PLAN: I discussed with the patient we will treat with antibiotic. He does not look pale and does not look toxic. We will also start him on clindamycin IV. Monitor him closely. If he has a significant fever, leukocytosis or worsening of the effusion, then we will consider chest tube placement. Further treatment will depend on the course in the hospital. Thank you, Dr. Stubbs, for this consult. MD BECKIE Stanton/ , 08:21 PM , 08:30 PM
[2018-02-27] MEDS ORDERED: DEXTROSE IV.SIG SCH
[2018-02-27] MEDS ORDERED: CLINDAMYCIN IV.SIG SCH
[2018-02-27] MEDS: Clindamycin 600 mg/NS Premix 600 MG/50 ML PIGGYBACK IV.SIG SCH ×5 (00:46→23:35)
[2018-02-27] MEDS: Acetaminophen 325 MG Tablet PO PRN ×2 (00:52→21:46)
[2018-02-27 09:30] LABS: Hematocrit 36.8 % (39.0-51.0); Hemoglobin 11.8 gm/dL (13.0-17.0); Mean Corpuscular Hemoglobin 26.7 pg (27.0-34.0); Mean Corpuscular Volume 83.6 fL (80.0-100.0); Mean Platelet Volume 7.8 fL (7.0-11.0); Platelet Count 395 th/mm3 (150-450); Red Cell Distribution Width 17.7 % (11.6-17.2); White Blood Count 19.1 th/mm3 (4.0-11.0)
[2018-02-27] MEDS: Ascorbic Acid 500 MG Tablet PO SCH ×2 (09:52→21:36)
[2018-02-27] MEDS: Venlafaxine XR 37.5 MG Capsule PO SCH (09:52)
[2018-02-27] MEDS: Azithromycin 250 MG Tablet PO SCH (09:52)
[2018-02-27] MEDS: Mirtazapine 15 MG Tablet PO SCH (09:52)
[2018-02-27] MEDS: Carvedilol 6.25 MG Tablet PO SCH ×2 (09:53→21:36)
[2018-02-27] MEDS: Insulin Detemir Inj 1,000 UNIT/10 ML Vial SQ SCH ×2 (09:53→21:41)
[2018-02-27] MEDS: Insulin NovoLOG Aspart Correctional Sugar Inj SQ SCH ×4 (09:54→21:36)
[2018-02-27 09:58] LABS: Calcium 8.9 mg/dL (8.5-10.1); Carbon Dioxide 19.5 meq/L (21.0-32.0); Potassium 4.5 meq/L (3.5-5.1)
--- NOTE | 2018-02-27 11:01 | P.PNIM ---
Subjective Interval history: Patient still feels weak. Cough still present. Fever present overnight. Episode of hypoglycemia overnight. Increase in leukocytosis this morning. Physical Exam Vital signs: Vital Signs 02/26/18 12:00 02/26/18 16:00 02/26/18 20:00 Temperature 98.8 F 99.2 F 100 F H Pulse Rate 68 69 75 Respiratory Rate 20 20 16 Blood Pressure 118/56 L 132/58 L 113/55 L Pulse Oximetry 96 95 94 L 02/27/18 00:00 02/27/18 04:00 02/27/18 08:00 Temperature 100.9 F H 97.8 F 98.2 F Pulse Rate 76 65 81 Respiratory Rate 18 18 18 Blood Pressure 135/64 112/56 L 120/56 L Pulse Oximetry 92 L 97 95 Intake & Output 02/26/18 02/27/18 02/27/18 18:59 06:59 18:59 Intake Total 480 / 480 100 / 100 Output Total 850 / 850 400 / 400 Balance -370 / -370 -300 / -300 Intake: IV 100 / 100 Cleocin 600 mg/NS Premix 600 mg 0 / 0 In 50 ml @ 100 mls/hr IV.SIG Q6H [facility] Rx#:[id number] Rocephin Inj 1,000 MG In NS Inj 100 / 100 100 ML @ 200 mls/hr IV.SIG Q24H [facility] Rx#:[id number] Oral 480 / 480 0 / 0 Output: Urine 850 / 850 400 / 400 Other: # Voids 2 Narrative: GENERAL: NAD, A&Ox3 HEAD: Normocephalic. NECK: Supple, trachea midline. No lymphadenopathy. EYES: No scleral icterus. No injection or drainage. CARDIOVASCULAR: Regular rate and rhythm without murmurs, gallops, or rubs. RESPIRATORY: Breath sounds equal bilaterally. No accessory muscle use. GASTROINTESTINAL: Abdomen soft, non-tender, nondistended. MUSCULOSKELETAL: No cyanosis, or edema. SKIN: Warm and dry. NEURO: No focal neurological deficits. Results - Labs CBC & Chem 7: 02/27/18 08:30 02/27/18 08:30 Laboratory Results - last 24 hr 02/26/18 02/26/18 02/26/18 11:16 16:15 19:55 WBC RBC Hgb Hct MCV MCH MCHC RDW Plt Count MPV Sodium Potassium Chloride Carbon Dioxide Anion Gap BUN Creatinine Estimated GFR POC Glucose 323 H 224 H 297 H Random Glucose Calcium 02/27/18 02/27/18 02/27/18 03:07 03:29 08:15 WBC RBC Hgb Hct MCV MCH MCHC RDW Plt Count MPV Sodium Potassium Chloride Carbon Dioxide Anion Gap BUN Creatinine Estimated GFR POC Glucose 50 L 71 204 H Random Glucose Calcium 02/27/18 02/27/18 08:30 08:30 WBC 19.1 H RBC 4.40 L Hgb 11.8 L Hct 36.8 L MCV 83.6 MCH 26.7 L MCHC 32.0 RDW 17.7 H Plt Count 395 MPV 7.8 Sodium 130 L Potassium 4.5 D Chloride 101 Carbon Dioxide 19.5 L Anion Gap 10 BUN 19 H Creatinine 0.95 Estimated GFR 79 L POC Glucose Random Glucose 187 H Calcium 8.9 Assessment and Plan - Assessment (1) Left pulmonary lesion Code(s): R91.1 - Solitary pulmonary nodule Status: Acute (2) Acute renal failure (ARF) Code(s): N17.9 - Acute kidney failure, unspecified Status: Acute (3) Diabetic hyperosmolar non-ketotic state Code(s): E11.00 - Type 2 diabetes mellitus with hyperosmolarity without nonketotic hyperglycemic-hyperosmolar coma (NKHHC) Status: Acute (4) Diabetes Code(s): E11.9 - Type 2 diabetes mellitus without complications Status: Acute (5) Chronic heart failure Code(s): I50.9 - Heart failure, unspecified Status: Acute (6) Depression Code(s): F32.9 - Major depressive disorder, single episode, unspecified Status : Acute (7) Atrial fibrillation Code(s): I48.91 - Unspecified atrial fibrillation Status: Acute - Plan 67-year-old male admitted secondary to left-sided pneumonia with possible empyema Left pulmonary pneumonia with loculations fluid-filled loculations on CT, differential includes empyema versus abscess Pulmonology following Continue Rocephin and azithromycin and clindamycin Monitor CBC Monitor for any recurrence of fevers Hyperglycemia and type 2 diabetes Diabetes mellitus type 2 Follow blood sugars Insulin sliding scale Diabetic diet CHF with A. fib Stable, no exacerbation continue Coreg Consider Coumadin if no procedures are to be done by pulmonology Lasix on hold due to dehydration BP meds on hold due to hypotension h/o depression Continue antidepressants Psychiatry consult pending, appreciate assistance Mild cognitive deficit Continue Aricept Follow-up as outpatient for cognitive testing DVT Prophylaxis Heparin Discharge planning Rule out empyema prior to transition for discharge and initiate Coumadin prior to discharge (2) Acute renal failure (ARF) Qualifiers: Acute renal failure type: unspecified Qualified Code(s): N17.9 - Acute kidney failure, unspecified
--- NOTE | 2018-02-27 13:00 | P.PNPL ---
Subjective Interval history: 67 YOWM with Pneumonia, Lung density with air bubbles had fever WBC increased No Cough or sp No CP Physical Exam Vital signs: Vital Signs 02/26/18 16:00 02/26/18 20:00 02/27/18 00:00 Temperature 99.2 F 100 F H 100.9 F H Pulse Rate 69 75 76 Respiratory Rate 20 16 18 Blood Pressure 132/58 L 113/55 L 135/64 Pulse Oximetry 95 94 L 92 L 02/27/18 04:00 02/27/18 08:00 Temperature 97.8 F 98.2 F Pulse Rate 65 81 Respiratory Rate 18 18 Blood Pressure 112/56 L 120/56 L Pulse Oximetry 97 95 Intake & Output 02/26/18 02/27/18 02/27/18 18:59 06:59 18:59 Intake Total 480 / 480 100 / 100 Output Total 850 / 850 400 / 400 Balance -370 / -370 -300 / -300 Intake: IV 100 / 100 Cleocin 600 mg/NS Premix 600 mg 0 / 0 In 50 ml @ 100 mls/hr IV.SIG Q6H [facility] Rx#:[id number] Rocephin Inj 1,000 MG In NS Inj 100 / 100 100 ML @ 200 mls/hr IV.SIG Q24H [facility] Rx#:[id number] Oral 480 / 480 0 / 0 Output: Urine 850 / 850 400 / 400 Other: # Voids 2 GENERAL: MBMN,NAD, not toxic looking SKIN: Warm and dry. HEAD: Normocephalic. EYES: No scleral icterus. No injection or drainage. NECK: Supple, trachea midline. No JVD or lymphadenopathy. CARDIOVASCULAR: Regular rate and rhythm without murmurs, gallops, or rubs. RESPIRATORY: Breath sounds equal bilaterally. No accessory muscle use. Decreased BS Left GASTROINTESTINAL: Abdomen soft, non-tender, nondistended. MUSCULOSKELETAL: No cyanosis, or edema. BACK: Nontender without obvious deformity. No CVA tenderness. Assessment and Plan - Plan ASSESSMENT AND PLAN: 1. Left lung pneumonia with some locules of air in it. Possible abscess or empyema. 2. Small pleural effusion. 3. Atrial fibrillation. 4. Diabetes mellitus. 5. Anxiety and depression. PLAN: Cont Abx Consult ID [id number] Varela Monitor CBC Check cultures
--- NOTE | 2018-02-27 14:41 | MB ---
cc: Tiago Olsen MD DATE: 02/27/2018 REQUESTING PHYSICIAN: Dr. Jovani Deleon. REASON FOR VISIT: Lung abscess. HISTORY OF PRESENT ILLNESS: This is a 67-year-old white male who presented to the emergency department on 02/25/2018 with weakness and hyperglycemia. The patient was having severe fatigue at home and was not getting out of bed. He was evaluated in the emergency department and his temperature was normal and his white count was also normal. The patient had elevated blood sugar. He was noted to be noncompliant with diabetic medicines. Chest x-ray was performed and it showed a loculated hemothorax. Subsequently, a CT scan of the lung was performed. The CT scan showed an 8 cm loculated fluid collection in the left lower hemithorax, containing multiple locules of air. There was also an associated small nonloculated left pleural effusion and fairly extensive bronchopneumonia in the left lung and to a lesser extent in the right upper lobe. The patient tells me that he has had occasional cough and has not been producing sputum. He denies chest pain or pain with deep inspiration. He denies shoulder pain. He also denies chills or nausea or vomiting. He reports to me that he may have lost approximately 15 pounds of weight over the past 3 months. He denies night sweats. The patient's temperature has increased to 100.9 degrees early this morning and his white blood cell count has increased to 19,000 from 9000. He is awake and alert, but he looks chronically ill. He tells me that his appetite is improved since admission. [place] He denies any recent travels. He denies any contact with sick persons. He denies any unusual animal contact. PAST MEDICAL AND SURGICAL HISTORY: Diabetes mellitus type 1, hypertension, congestive heart failure, atrial fibrillation, cardiomyopathy, chronic malnutrition, colitis, pacemaker implantation 2 years ago, colostomy, and history of colectomy. ALLERGIES: NO KNOWN DRUG ALLERGIES. MEDICATIONS: 1. Lactulose. 2. Remeron. 3. Protonix. 4. Effexor. 5. Vitamin D. 6. Clindamycin 7. Ceftriaxone. 8. Azithromycin. 9. Coreg. 10. Ecotrin. 11. Vitamin C. SOCIAL HISTORY: The patient smokes 1-2 cigarettes a day. He is former smoker and smoked a pack of cigarettes up until approximately 6 months ago. Denies alcohol. Denies illicit drugs. FAMILY HISTORY: Noncontributory. REVIEW OF SYSTEMS: Pertinents mentioned above in history of present illness. All systems have been reviewed and are negative besides that. PHYSICAL EXAMINATION: GENERAL: This is a thin, elderly male who in no acute distress, but he looks chronically ill. He is awake and alert and oriented. VITAL SIGNS: Temperature 99.1, blood pressure 109/57, respiratory 18, heart rate 68. HEENT: The head is atraumatic and normocephalic. Extraocular movements are grossly intact. Pupils reactive to light. No icterus. Oropharynx mucosa moist. No visible lesions. No thrush. NECK: Supple, without adenopathy or swelling. LUNGS: Decreased breath sounds throughout. No audible rhonchi. HEART: Regular S1 and S2 with a II/ systolic murmur at left sternal border. ABDOMEN: Bowel sounds present, soft, nontender. Right lower abdomen colostomy in place and the skin around the colostomy has no signs of infection. RECTAL: Not performed. EXTREMITIES: No clubbing, cyanosis or edema. SKIN: No diffuse rash. NEUROLOGIC: Alert and oriented. No gross focal finding. PSYCHIATRIC: The patient is calm and cooperative and mood appears normal. LABORATORY DATA: WBC 19.1, platelets 395, hemoglobin 11.8. Creatinine 0.95, BUN 19, sodium 130. IMPRESSION: 1. Left lung mass/abscess. 2. Fever and leukocytosis, favoring abscess of the lung findings on CT scan. RECOMMENDATIONS: 1. Continue clindamycin. 2. Continue ceftriaxone. 3. Continue azithromycin. 4. Obtain blood cultures. 5. Consider radiological drainage or catheter insertion for diagnostic purposes. It would be very difficult to determine antibiotic treatment for this patient without culture information. 6. If he has any sputum production, we should also attempt to obtain sputum culture to guide antibiotic treatment. Thank you for this consultation. I will follow the patient's progress and make further recommendations and followup if necessary. MD SHAWN Mar/ALIZE , 02:06 PM , 02:21 PM
[2018-02-28] MEDS: Acetaminophen 325 MG Tablet PO PRN (04:46)
[2018-02-28] MEDS: Clindamycin 600 mg/NS Premix 600 MG/50 ML PIGGYBACK IV.SIG SCH ×3 (05:05→18:26)
[2018-02-28 08:25] LABS: Baso # (Auto) 0.1 th/mm3 (0.0-0.2); Baso % (Auto) 0.5 % (0.0-2.0); Eos # (Auto) 0.5 th/mm3 (0.0-0.4); Eos % (Auto) 3.2 % (0.0-4.0); Hematocrit 31.2 % (39.0-51.0); Lymph # (Auto) 1.4 th/mm3 (1.0-4.8); Lymph % (Auto) 9.2 % (9.0-44.0); Mean Corpuscular HGB Conc 32.1 % (32.0-36.0); Mean Corpuscular Hemoglobin 26.2 pg (27.0-34.0); Mean Corpuscular Volume 81.6 fL (80.0-100.0); Mean Platelet Volume 7.8 fL (7.0-11.0); Mono # (Auto) 0.7 th/mm3 (0.0-0.9); Mono % (Auto) 4.8 % (0.0-8.0); Neut # (Auto) 12.2 th/mm3 (1.8-7.7); Neut % (Auto) 82.3 % (16.0-70.0); Platelet Count 337 th/mm3 (150-450); Red Blood Count 3.82 mil/mm3 (4.50-5.90); Red Cell Distribution Width 17.8 % (11.6-17.2); White Blood Count 14.8 th/mm3 (4.0-11.0)
[2018-02-28 08:52] LABS: Alanine Aminotransferase 10 U/L (12-78); Albumin 1.5 g/dL (3.4-5.0); Alkaline Phosphatase 86 U/L (45-117); Anion Gap 8 meq/L (5-15); Aspartate Aminotransferase 20 U/L (15-37); Blood Urea Nitrogen 19 mg/dL (7-18); Calcium 8.5 mg/dL (8.5-10.1); Carbon Dioxide 24.6 meq/L (21.0-32.0); Chloride 102 meq/L (98-107); Glomerular Filtration Rate 84 mL/min (>89); Glucose,Random 59 mg/dL (74-106); Potassium 4.2 meq/L (3.5-5.1); Total Protein 6.6 g/dL (6.4-8.2)
[2018-02-28 08:53] LABS: Sodium 135 meq/L (136-145)
[2018-02-28] MEDS: Azithromycin 250 MG Tablet PO SCH (09:16)
[2018-02-28] MEDS: Mirtazapine 15 MG Tablet PO SCH (09:16)
[2018-02-28] MEDS: Carvedilol 6.25 MG Tablet PO SCH ×2 (09:16→21:03)
[2018-02-28] MEDS: Venlafaxine XR 37.5 MG Capsule PO SCH (09:16)
[2018-02-28] MEDS: Ascorbic Acid 500 MG Tablet PO SCH ×2 (09:16→21:02)
[2018-02-28] MEDS: Insulin NovoLOG Aspart Correctional Sugar Inj SQ SCH ×4 (09:17→21:02)
[2018-02-28] MEDS: Insulin Detemir Inj 1,000 UNIT/10 ML Vial SQ SCH ×2 (09:17→21:02)
--- NOTE | 2018-02-28 11:40 | P.PNIM ---
Subjective Interval history: No complaints of the patient today. Temperature with a T-max of 100.1 F overnight. Potential option for needle aspiration of abscess fluid, as recommended by ID, discussed with the patient. Physical Exam Vital signs: Vital Signs 02/27/18 12:00 02/27/18 16:00 02/27/18 16:12 Temperature 99.1 F 99.1 F Pulse Rate 75 84 68 Respiratory Rate 18 18 Blood Pressure 109/57 L 102/56 L Pulse Oximetry 95 94 L 02/27/18 20:00 02/27/18 21:00 02/28/18 00:00 Temperature 101.7 F H 100.1 F H Pulse Rate 75 73 70 Respiratory Rate 18 18 Blood Pressure 104/56 L 105/59 L Pulse Oximetry 93 L 95 02/28/18 04:00 02/28/18 08:00 Temperature 97.8 F 97.6 F Pulse Rate 74 65 Respiratory Rate 16 20 Blood Pressure 108/60 116/57 L Pulse Oximetry 96 94 L Intake & Output 02/27/18 02/28/18 02/28/18 18:59 06:59 18:59 Intake Total 990 / 990 290 / 290 Output Total 900 / 900 300 / 300 Balance 90 / 90 -10 / -10 Weight 70.5 kg Intake: IV 150 / 150 50 / 50 Cleocin 600 mg/NS Premix 600 mg 50 / 50 50 / 50 In 50 ml @ 100 mls/hr IV.SIG Q6H RAFY Rx#:[id number] Rocephin Inj 1,000 MG In NS Inj 100 / 100 100 ML @ 200 mls/hr IV.SIG Q24H RAFY Rx#:[id number] Oral 840 / 840 240 / 240 Output: Urine 900 / 900 300 / 300 Other: # Voids 1 Date of Last Bowel Movement 02/27/18 Narrative: GENERAL: NAD, A&Ox3 HEAD: Normocephalic. NECK: Supple, trachea midline. No lymphadenopathy. EYES: No scleral icterus. No injection or drainage. CARDIOVASCULAR: Regular rate and rhythm without murmurs, gallops, or rubs. RESPIRATORY: Breath sounds equal bilaterally. No accessory muscle use. GASTROINTESTINAL: Abdomen soft, non-tender, nondistended. MUSCULOSKELETAL: No cyanosis, or edema. SKIN: Warm and dry. NEURO: No focal neurological deficits. Results - Labs CBC & Chem 7: 02/28/18 07:40 02/28/18 07:40 Laboratory Results - last 24 hr 02/27/18 02/27/18 02/27/18 12:11 17:19 20:18 WBC RBC Hgb Hct MCV MCH MCHC RDW Plt Count MPV Prelim Diff (Auto) Neut % (Auto) Lymph % (Auto) [place] % (Auto) Eos % (Auto) Baso % (Auto) Neut # (Auto) Lymph # (Auto) [place] # (Auto) Eos # (Auto) Baso # (Auto) WBC Differential Differential Comment Hematology Comments Sodium Potassium Chloride Carbon Dioxide Anion Gap BUN Creatinine Estimated GFR POC Glucose 311 H 291 H 274 H Random Glucose Calcium Total Bilirubin AST ALT Alkaline Phosphatase Total Protein Albumin 02/28/18 02/28/18 02/28/18 07:40 07:40 08:09 WBC 14.8 H RBC 3.82 L Hgb 10.0 L Hct 31.2 L MCV 81.6 MCH 26.2 L MCHC 32.1 RDW 17.8 H Plt Count 337 MPV 7.8 Prelim Diff (Auto) Slide review pending Neut % (Auto) 82.3 H Lymph % (Auto) 9.2 [place] % (Auto) 4.8 Eos % (Auto) 3.2 Baso % (Auto) 0.5 Neut # (Auto) 12.2 H Lymph # (Auto) 1.4 [place] # (Auto) 0.7 Eos # (Auto) 0.5 H Baso # (Auto) 0.1 WBC Differential . Differential Comment . Hematology Comments Sodium 135 L Potassium 4.2 Chloride 102 Carbon Dioxide 24.6 Anion Gap 8 BUN 19 H Creatinine 0.90 Estimated GFR 84 L POC Glucose 79 Random Glucose 59 L D Calcium 8.5 Total Bilirubin 0.2 AST 20 ALT 10 L Alkaline Phosphatase 86 Total Protein 6.6 Albumin 1.5 L Microbiology 02/27/18 14:45 Blood - Peripheral Aerobic Blood Culture - Preliminary No growth in 1 day 02/27/18 14:45 Blood - Peripheral Anaerobic Blood Culture - Preliminary No growth in 1 day 02/27/18 14:40 Blood - Peripheral Aerobic Blood Culture - Preliminary No growth in 1 day 02/27/18 14:40 Blood - Peripheral Anaerobic Blood Culture - Preliminary No growth in 1 day Assessment and Plan - Assessment (1) Left pulmonary lesion Code(s): R91.1 - Solitary pulmonary nodule Status: Acute (2) Acute renal failure (ARF) Code(s): N17.9 - Acute kidney failure, unspecified Status: Acute (3) Diabetic hyperosmolar non-ketotic state Code(s): E11.00 - Type 2 diabetes mellitus with hyperosmolarity without nonketotic hyperglycemic-hyperosmolar coma (NKHHC) Status: Acute (4) Diabetes Code(s): E11.9 - Type 2 diabetes mellitus without complications Status: Acute (5) Chronic heart failure Code(s): I50.9 - Heart failure, unspecified Status: Acute (6) Depression Code(s): F32.9 - Major depressive disorder, single episode, unspecified Status : Acute (7) Atrial fibrillation Code(s): I48.91 - Unspecified atrial fibrillation Status: Acute - Plan 67-year-old male admitted secondary to left-sided pneumonia with possible empyema Continue antibiotics and monitoring CBC and CMP. No new complaints. Possibility of needle aspiration of abscess, awaiting pulmonology input in this regard. Left pulmonary pneumonia with loculations fluid-filled loculations on CT, differential includes empyema versus abscess Pulmonology following Continue Rocephin and azithromycin and clindamycin Monitor CBC Monitor for any recurrence of fevers Hyperglycemia and type 2 diabetes Diabetes mellitus type 2 Follow blood sugars Insulin sliding scale Diabetic diet CHF with A. fib Stable, no exacerbation continue Coreg Consider Coumadin if no procedures are to be done by pulmonology Lasix on hold due to dehydration BP meds on hold due to hypotension h/o depression Continue antidepressants Psychiatry consult pending, appreciate assistance Mild cognitive deficit Continue Aricept Follow-up as outpatient for cognitive testing DVT Prophylaxis Heparin Discharge planning Rule out empyema prior to transition for discharge and initiate Coumadin prior to discharge (2) Acute renal failure (ARF) Qualifiers: Acute renal failure type: unspecified Qualified Code(s): N17.9 - Acute kidney failure, unspecified
--- NOTE | 2018-02-28 14:31 | P.PNPL ---
Subjective Interval history: 67 YOWM with Pneumonia, Lung density with air bubbles No Fever WBC decreasing Matthew No Cough or sp No CP Physical Exam Vital signs: Vital Signs 02/27/18 16:00 02/27/18 16:12 02/27/18 20:00 Temperature 99.1 F 101.7 F H Pulse Rate 84 68 75 Respiratory Rate 18 18 Blood Pressure 102/56 L 104/56 L Pulse Oximetry 94 L 93 L 02/27/18 21:00 02/28/18 00:00 02/28/18 04:00 Temperature 100.1 F H 97.8 F Pulse Rate 73 70 74 Respiratory Rate 18 16 Blood Pressure 105/59 L 108/60 Pulse Oximetry 95 96 02/28/18 08:00 02/28/18 12:00 Temperature 97.6 F 98.3 F Pulse Rate 65 82 Respiratory Rate 20 20 Blood Pressure 116/57 L 111/54 L Pulse Oximetry 94 L 97 Intake & Output 02/27/18 02/28/18 02/28/18 18:59 06:59 18:59 Intake Total 990 / 990 340 / 340 Output Total 900 / 900 300 / 300 Balance 90 / 90 40 / 40 Weight 70.5 kg Intake: IV 150 / 150 100 / 100 Cleocin 600 mg/NS Premix 600 mg 50 / 50 100 / 100 In 50 ml @ 100 mls/hr IV.SIG Q6H RAFY Rx#:[id number] Rocephin Inj 1,000 MG In NS Inj 100 / 100 100 ML @ 200 mls/hr IV.SIG Q24H RAFY Rx#:[id number] Oral 840 / 840 240 / 240 Output: Urine 900 / 900 300 / 300 Other: # Voids 1 Date of Last Bowel Movement 02/27/18 02/28/18 GENERAL: WBWN,NAD SKIN: Warm and dry. HEAD: Normocephalic. EYES: No scleral icterus. No injection or drainage. NECK: Supple, trachea midline. No JVD or lymphadenopathy. CARDIOVASCULAR: Regular rate and rhythm without murmurs, gallops, or rubs. RESPIRATORY: Breath sounds equal bilaterally. No accessory muscle use. Decreased BS Left GASTROINTESTINAL: Abdomen soft, non-tender, nondistended. MUSCULOSKELETAL: No cyanosis, or edema. BACK: Nontender without obvious deformity. No CVA tenderness. Assessment and Plan - Plan ASSESSMENT AND PLAN: 1. Left lung pneumonia with some locules of air in it. Possible abscess or empyema. 2. Small pleural effusion. 3. Atrial fibrillation. 4. Diabetes mellitus. 5. Anxiety and depression. PLAN: Cont Abx Monitor CBC Check cultures
--- NOTE | 2018-02-28 15:21 | P.PNID ---
Subjective Remarks: Patient says he feels okay. No cough or sputum production. Blood culture pending. This is a 67-year-old white male who presented to the emergency department on 02/25/2018 with weakness and hyperglycemia. The patient was having severe fatigue at home and was not getting out of bed. He was evaluated in the emergency department and his temperature was normal and his white count was also normal. The patient had elevated blood sugar. He was noted to be noncompliant with diabetic medicines. Chest x-ray was performed and it showed a loculated hemothorax. Subsequently, a CT scan of the lung was performed. The CT scan showed an 8 cm loculated fluid collection in the left lower hemithorax, containing multiple locules of air. There was also an associated small nonloculated left pleural effusion and fairly extensive bronchopneumonia in the left lung and to a lesser extent in the right upper lobe. The patient tells me that he has had occasional cough and has not been producing sputum. He denies chest pain or pain with deep inspiration. He denies shoulder pain. He also denies chills or nausea or vomiting. He reports to me that he may have lost approximately 15 pounds of weight over the past 3 months. He denies night sweats. The patient's temperature has increased to 100.9 degrees early this morning and his white blood cell count has increased to 19,000 from 9000. He is awake and alert, but he looks chronically ill. He tells me that his appetite is improved since admission. [place] He denies any recent travels. He denies any contact with sick persons. He denies any unusual animal contact. Past Medical History: Diabetes mellitus type 1, hypertension, congestive heart failure, atrial fibrillation, cardiomyopathy, chronic malnutrition, colitis, pacemaker implantation 2 years ago, colostomy, and history of colectomy. Allergies/Adverse Reactions: Allergies No Known Allergies Adverse Reaction (Unknown, Uncoded 02/25/18 14:20) NONE Objective Vital Signs 02/27/18 16:00 02/27/18 16:12 02/27/18 20:00 Temperature 99.1 F 101.7 F H Pulse Rate 84 68 75 Respiratory Rate 18 18 Blood Pressure 102/56 L 104/56 L Pulse Oximetry 94 L 93 L 02/27/18 21:00 02/28/18 00:00 02/28/18 04:00 Temperature 100.1 F H 97.8 F Pulse Rate 73 70 74 Respiratory Rate 18 16 Blood Pressure 105/59 L 108/60 Pulse Oximetry 95 96 02/28/18 07:52 02/28/18 08:00 02/28/18 12:00 Temperature 97.6 F 98.3 F Pulse Rate 63 65 82 Respiratory Rate 20 20 Blood Pressure 116/57 L 111/54 L Pulse Oximetry 94 L 97 Intake & Output 02/27/18 02/28/18 02/28/18 18:59 06:59 18:59 Intake Total 990 / 990 340 / 340 Output Total 900 / 900 300 / 300 Balance 90 / 90 40 / 40 Weight 70.5 kg Intake: IV 150 / 150 100 / 100 Cleocin 600 mg/NS Premix 600 mg 50 / 50 100 / 100 In 50 ml @ 100 mls/hr IV.SIG Q6H RAFY Rx#:[id number] Rocephin Inj 1,000 MG In NS Inj 100 / 100 100 ML @ 200 mls/hr IV.SIG Q24H RAFY Rx#:[id number] Oral 840 / 840 240 / 240 Output: Urine 900 / 900 300 / 300 Other: # Voids 1 Date of Last Bowel Movement 02/27/18 02/28/18 02/27/18 14:45 Blood - Peripheral Aerobic Blood Culture - Preliminary No growth in 1 day 02/27/18 14:45 Blood - Peripheral Anaerobic Blood Culture - Preliminary No growth in 1 day 02/27/18 14:40 Blood - Peripheral Aerobic Blood Culture - Preliminary No growth in 1 day 02/27/18 14:40 Blood - Peripheral Anaerobic Blood Culture - Preliminary No growth in 1 day Lab - Hematology Results 02/27/18 02/28/18 08:30 07:40 WBC 19.1 H 14.8 H RBC 4.40 L 3.82 L Hgb 11.8 L 10.0 L Hct 36.8 L 31.2 L MCV 83.6 81.6 MCH 26.7 L 26.2 L MCHC 32.0 32.1 RDW 17.7 H 17.8 H Plt Count 395 337 MPV 7.8 7.8 Prelim Diff (Auto) Slide review pending Neut % (Auto) 82.3 H Lymph % (Auto) 9.2 [place] % (Auto) 4.8 Eos % (Auto) 3.2 Baso % (Auto) 0.5 Neut # (Auto) 12.2 H Lymph # (Auto) 1.4 [place] # (Auto) 0.7 Eos # (Auto) 0.5 H Baso # (Auto) 0.1 WBC Differential . Differential Comment . Hematology Comments Lab - Chemistry Results 02/26/18 02/26/18 02/27/18 16:15 19:55 03:07 Sodium Potassium Chloride Carbon Dioxide Anion Gap BUN Creatinine Estimated GFR POC Glucose 224 H 297 H 50 L Random Glucose Calcium Total Bilirubin AST ALT Alkaline Phosphatase Total Protein Albumin 02/27/18 02/27/18 02/27/18 03:29 08:15 08:30 Sodium 130 L Potassium 4.5 D Chloride 101 Carbon Dioxide 19.5 L Anion Gap 10 BUN 19 H Creatinine 0.95 Estimated GFR 79 L POC Glucose 71 204 H Random Glucose 187 H Calcium 8.9 Total Bilirubin AST ALT Alkaline Phosphatase Total Protein Albumin 02/27/18 02/27/18 02/27/18 12:11 17:19 20:18 Sodium Potassium Chloride Carbon Dioxide Anion Gap BUN Creatinine Estimated GFR POC Glucose 311 H 291 H 274 H Random Glucose Calcium Total Bilirubin AST ALT Alkaline Phosphatase Total Protein Albumin 02/28/18 02/28/18 02/28/18 07:40 08:09 11:48 Sodium 135 L Potassium 4.2 Chloride 102 Carbon Dioxide 24.6 Anion Gap 8 BUN 19 H Creatinine 0.90 Estimated GFR 84 L POC Glucose 79 277 H Random Glucose 59 L D Calcium 8.5 Total Bilirubin 0.2 AST 20 ALT 10 L Alkaline Phosphatase 86 Total Protein 6.6 Albumin 1.5 L Imaging: ITS Impressions Chest X-Ray 02/25/18 14:18 CONCLUSION: 1. Worsening left mid to lower lung zone pleural parenchymal opacities correlating to sharply delineated posterior mediastinal pleural based opacity on prior chest radiographs and associated left lower lobe airspace disease. Given the short term development of the pleural-based opacity, between 2017 and 10/01/2017, suspect a loculated hemothorax with associated compressive atelectasis. Consider chest CT examination for better evaluation. Chest CT 02/25/18 17:48 CONCLUSION: 1. 8 cm loculated fluid collection in the lower left hemithorax also containing multiple locules of air. Differential diagnosis includes peripheral lung access or empyema. There is an associated small nonloculated left pleural effusion and fairly extensive bronchopneumonia in the left lung and to a lesser extent in the right upper lobe. Physical Exam: GENERAL: No acute distress, he looks chronically ill. HEENT: Head is atraumatic and normocephalic. Extraocular movements are grossly intact. Pupils reactive to light. No icterus. Oropharynx mucosa moist. No visible lesions. No thrush. NECK: Supple, without adenopathy or swelling. LUNGS: Decreased breath sounds throughout. No audible rhonchi. HEART: Regular S1 and S2 with a II/ systolic murmur at left sternal border. ABDOMEN: Bowel sounds present, soft, nontender. Right lower abdomen colostomy in place and the skin around the colostomy has no signs of infection. EXTREMITIES: No clubbing, cyanosis or edema. SKIN: No diffuse rash. NEUROLOGIC: Non focal. PSYCHIATRIC: Calm and cooperative and mood appears normal. Assessment and Plan - Plan IMPRESSION: 1. Left lung mass/abscess vs empyema. 2. Fever and leukocytosis, favoring abscess/empyema of the lung findings on CT scan. RECOMMENDATIONS: 1. Continue clindamycin. 2. Continue ceftriaxone. 3. Continue azithromycin. 4. Follow blood cultures. 5. I will request interventional radiology to do aspiration of the lesion for culture as he is not producing sputum.
[2018-03-01] MEDS: Clindamycin 600 mg/NS Premix 600 MG/50 ML PIGGYBACK IV.SIG SCH ×4 (00:11→17:02)
[2018-03-01 05:30] LABS: Baso # (Auto) 0.1 th/mm3 (0.0-0.2); Baso % (Auto) 0.8 % (0.0-2.0); Eos # (Auto) 0.3 th/mm3 (0.0-0.4); Eos % (Auto) 2.4 % (0.0-4.0); Hematocrit 29.3 % (39.0-51.0); Hemoglobin 9.5 gm/dL (13.0-17.0); Lymph # (Auto) 1.4 th/mm3 (1.0-4.8); Mean Corpuscular HGB Conc 32.4 % (32.0-36.0); Mean Corpuscular Hemoglobin 26.5 pg (27.0-34.0); Mean Corpuscular Volume 81.9 fL (80.0-100.0); Mean Platelet Volume 7.7 fL (7.0-11.0); Mono # (Auto) 0.5 th/mm3 (0.0-0.9); Mono % (Auto) 3.6 % (0.0-8.0); Neut # (Auto) 11.8 th/mm3 (1.8-7.7); Neut % (Auto) 83.2 % (16.0-70.0); Platelet Count 378 th/mm3 (150-450); Red Blood Count 3.57 mil/mm3 (4.50-5.90); Red Cell Distribution Width 17.9 % (11.6-17.2); White Blood Count 14.2 th/mm3 (4.0-11.0)
[2018-03-01 05:54] LABS: Albumin 1.5 g/dL (3.4-5.0); Anion Gap 8 meq/L (5-15); Aspartate Aminotransferase 13 U/L (15-37); Blood Urea Nitrogen 23 mg/dL (7-18); Calcium 8.2 mg/dL (8.5-10.1); Carbon Dioxide 25.8 meq/L (21.0-32.0); Chloride 103 meq/L (98-107); Glomerular Filtration Rate 88 mL/min (>89); Glucose,Random 100 mg/dL (74-106); Potassium 4.4 meq/L (3.5-5.1); Sodium 137 meq/L (136-145)
[2018-03-01 05:57] LABS: Alanine Aminotransferase 12 U/L (12-78); Alkaline Phosphatase 89 U/L (45-117); Total Protein 6.3 g/dL (6.4-8.2)
[2018-03-01] MEDS: Insulin NovoLOG Aspart Correctional Sugar Inj SQ SCH ×4 (08:19→21:05)
[2018-03-01] MEDS: Azithromycin 250 MG Tablet PO SCH (09:22)
[2018-03-01] MEDS: Venlafaxine XR 37.5 MG Capsule PO SCH (09:22)
[2018-03-01] MEDS: Carvedilol 6.25 MG Tablet PO SCH ×2 (09:23→21:05)
[2018-03-01] MEDS: Ascorbic Acid 500 MG Tablet PO SCH ×2 (09:23→21:05)
[2018-03-01] MEDS: Mirtazapine 15 MG Tablet PO SCH (09:27)
[2018-03-01] MEDS: Insulin Detemir Inj 1,000 UNIT/10 ML Vial SQ SCH ×2 (11:31→21:06)
--- NOTE | 2018-03-01 11:53 | CT ---
EXAM DATE: 03/01/2018 10:13 AM EDT AGE/SEX: 67 years / Male INDICATIONS: Left lung abscess. COMPARISON: [facility] [place], CT CHEST W/O CONTRAST, 02/25/2018. . FINDINGS: Images of recent CT chest were reviewed. The fluid collection in the left lower lobe is consistent wi th a pulmonary abscess with adjacent small pleural effusion. CONCLUSION: 1. Left lower lobe pulmonary abscess. Antibiotic therapy recommended. 2. A percutaneous catheter placement is not indicated for a pulmonary abscess as there is high risk for bronchopleural fistula. Electronically signed by: Servando White MD 03/01/2018 11:52 AM EDT
--- NOTE | 2018-03-01 13:15 | P.PNIM ---
Subjective Interval history: Lung abscess aspiration pending. Patient had a fever of 101 Fahrenheit overnight. No other complaints. Physical Exam Vital signs: Vital Signs 02/28/18 16:00 02/28/18 20:00 02/28/18 20:36 Temperature 98.1 F 99.7 F H Pulse Rate 67 73 75 Respiratory Rate 20 18 Blood Pressure 117/56 L 122/59 L Pulse Oximetry 95 96 03/01/18 00:00 03/01/18 04:00 03/01/18 08:00 Temperature 98.8 F 101 F H 98.8 F Pulse Rate 83 70 73 Respiratory Rate 18 18 20 Blood Pressure 105/58 L 113/55 L 119/57 L Pulse Oximetry 92 L 95 94 L Intake & Output 02/28/18 03/01/18 03/01/18 18:59 06:59 18:59 Intake Total 710 / 710 340 / 340 150 / 150 Output Total 650 / 650 500 / 500 Balance 60 / 60 -160 / -160 150 / 150 Weight 68.9 kg Intake: IV 150 / 150 100 / 100 150 / 150 Cleocin 600 mg/NS Premix 600 mg 50 / 50 100 / 100 50 / 50 In 50 ml @ 100 mls/hr IV.SIG Q6H RAFY Rx#:[id number] Rocephin Inj 1,000 MG In NS Inj 100 / 100 100 / 100 100 ML @ 200 mls/hr IV.SIG Q24H RAFY Rx#:[id number] Oral 560 / 560 240 / 240 Output: Urine 650 / 650 500 / 500 Other: Date of Last Bowel Movement 02/28/18 02/28/18 Narrative: GENERAL: NAD, A&Ox3 HEAD: Normocephalic. NECK: Supple, trachea midline. No lymphadenopathy. EYES: No scleral icterus. No injection or drainage. CARDIOVASCULAR: Regular rate and rhythm without murmurs, gallops, or rubs. RESPIRATORY: Breath sounds equal bilaterally. No accessory muscle use. GASTROINTESTINAL: Abdomen soft, non-tender, nondistended. MUSCULOSKELETAL: No cyanosis, or edema. SKIN: Warm and dry. NEURO: No focal neurological deficits. Results - Labs CBC & Chem 7: 03/01/18 04:36 03/01/18 04:36 Laboratory Results - last 24 hr 02/28/18 02/28/18 03/01/18 16:49 21:02 04:36 WBC 14.2 H RBC 3.57 L Hgb 9.5 L Hct 29.3 L MCV 81.9 MCH 26.5 L MCHC 32.4 RDW 17.9 H Plt Count 378 MPV 7.7 Neut % (Auto) 83.2 H Lymph % (Auto) 10.0 [place] % (Auto) 3.6 Eos % (Auto) 2.4 Baso % (Auto) 0.8 Neut # (Auto) 11.8 H Lymph # (Auto) 1.4 [place] # (Auto) 0.5 Eos # (Auto) 0.3 Baso # (Auto) 0.1 WBC Differential . Differential Comment Auto diff final Sodium Potassium Chloride Carbon Dioxide Anion Gap BUN Creatinine Estimated GFR POC Glucose 305 H 250 H Random Glucose Calcium Total Bilirubin AST ALT Alkaline Phosphatase Total Protein Albumin 03/01/18 03/01/18 03/01/18 04:36 07:53 12:42 WBC RBC Hgb Hct MCV MCH MCHC RDW Plt Count MPV Neut % (Auto) Lymph % (Auto) [place] % (Auto) Eos % (Auto) Baso % (Auto) Neut # (Auto) Lymph # (Auto) [place] # (Auto) Eos # (Auto) Baso # (Auto) WBC Differential Differential Comment Sodium 137 Potassium 4.4 Chloride 103 Carbon Dioxide 25.8 Anion Gap 8 BUN 23 H Creatinine 0.86 Estimated GFR 88 L POC Glucose 85 344 H Random Glucose 100 Calcium 8.2 L Total Bilirubin 0.1 L AST 13 L ALT 12 Alkaline Phosphatase 89 Total Protein 6.3 L Albumin 1.5 L Microbiology 02/27/18 14:45 Blood - Peripheral Aerobic Blood Culture - Preliminary No growth in 2 days 02/27/18 14:45 Blood - Peripheral Anaerobic Blood Culture - Preliminary No growth in 2 days 02/27/18 14:40 Blood - Peripheral Aerobic Blood Culture - Preliminary No growth in 2 days 02/27/18 14:40 Blood - Peripheral Anaerobic Blood Culture - Preliminary No growth in 2 days - Imaging Impressions CT Consultation 03/01/18 00:00 CONCLUSION: 1. Left lower lobe pulmonary abscess. Antibiotic therapy recommended. 2. A percutaneous catheter placement is not indicated for a pulmonary abscess as there is high risk for bronchopleural fistula. Assessment and Plan - Assessment (1) Left pulmonary lesion Code(s): R91.1 - Solitary pulmonary nodule Status: Acute (2) Acute renal failure (ARF) Code(s): N17.9 - Acute kidney failure, unspecified Status: Acute (3) Diabetic hyperosmolar non-ketotic state Code(s): E11.00 - Type 2 diabetes mellitus with hyperosmolarity without nonketotic hyperglycemic-hyperosmolar coma (NKHHC) Status: Acute (4) Diabetes Code(s): E11.9 - Type 2 diabetes mellitus without complications Status: Acute (5) Chronic heart failure Code(s): I50.9 - Heart failure, unspecified Status: Acute (6) Depression Code(s): F32.9 - Major depressive disorder, single episode, unspecified Status : Acute (7) Atrial fibrillation Code(s): I48.91 - Unspecified atrial fibrillation Status: Acute - Plan 67-year-old male admitted secondary to left-sided pneumonia with possible empyema Plan for aspiration of abscess of lung possibly tomorrow. Monitor for any recurrence of fever. Continue antibiotics and monitoring CBC and CMP. No new complaints. Left pulmonary pneumonia with loculations fluid-filled loculations on CT, differential includes empyema versus abscess Pulmonology following Continue Rocephin and azithromycin and clindamycin Monitor CBC Monitor for any recurrence of fevers Hyperglycemia and type 2 diabetes Diabetes mellitus type 2 Follow blood sugars Insulin sliding scale Diabetic diet CHF with A. fib Stable, no exacerbation continue Coreg Consider Coumadin if no procedures are to be done by pulmonology Lasix on hold due to dehydration BP meds on hold due to hypotension h/o depression Continue antidepressants Psychiatry consult pending, appreciate assistance Mild cognitive deficit Continue Aricept Follow-up as outpatient for cognitive testing DVT Prophylaxis Heparin Discharge planning Rule out empyema prior to transition for discharge and initiate Coumadin prior to discharge (2) Acute renal failure (ARF) Qualifiers: Acute renal failure type: unspecified Qualified Code(s): N17.9 - Acute kidney failure, unspecified
--- NOTE | 2018-03-01 13:58 | P.PNID ---
Subjective Remarks: Patient says he feels okay. No cough or sputum production. Denies chest pain. Blood culture has no growth. Temp spike to 101. White blood cell count remains elevated. Requested radiology consult for aspiration of the lung abscess. It is felt by radiology that a aspiration procedure should not be performed avoid development of a bronchopleural fistula. This is a 67-year-old white male who presented to the emergency department on 02/25/2018 with weakness and hyperglycemia. The patient was having severe fatigue at home and was not getting out of bed. He was evaluated in the emergency department and his temperature was normal and his white count was also normal. The patient had elevated blood sugar. He was noted to be noncompliant with diabetic medicines. Chest x-ray was performed and it showed a loculated hemothorax. Subsequently, a CT scan of the lung was performed. The CT scan showed an 8 cm loculated fluid collection in the left lower hemithorax, containing multiple locules of air. There was also an associated small nonloculated left pleural effusion and fairly extensive bronchopneumonia in the left lung and to a lesser extent in the right upper lobe. Past Medical History: Diabetes mellitus type 1, hypertension, congestive heart failure, atrial fibrillation, cardiomyopathy, chronic malnutrition, colitis, pacemaker implantation 2 years ago, colostomy, and history of colectomy. Allergies/Adverse Reactions: Allergies No Known Allergies Adverse Reaction (Unknown, Uncoded 02/25/18 14:20) NONE Objective Vital Signs 02/28/18 16:00 02/28/18 20:00 02/28/18 20:36 Temperature 98.1 F 99.7 F H Pulse Rate 67 73 75 Respiratory Rate 20 18 Blood Pressure 117/56 L 122/59 L Pulse Oximetry 95 96 03/01/18 00:00 03/01/18 04:00 03/01/18 08:00 Temperature 98.8 F 101 F H 98.8 F Pulse Rate 83 70 73 Respiratory Rate 18 18 20 Blood Pressure 105/58 L 113/55 L 119/57 L Pulse Oximetry 92 L 95 94 L Intake & Output 02/28/18 03/01/18 03/01/18 18:59 06:59 18:59 Intake Total 710 / 710 340 / 340 150 / 150 Output Total 650 / 650 500 / 500 Balance 60 / 60 -160 / -160 150 / 150 Weight 68.9 kg Intake: IV 150 / 150 100 / 100 150 / 150 Cleocin 600 mg/NS Premix 600 mg 50 / 50 100 / 100 50 / 50 In 50 ml @ 100 mls/hr IV.SIG Q6H RAFY Rx#:[id number] Rocephin Inj 1,000 MG In NS Inj 100 / 100 100 / 100 100 ML @ 200 mls/hr IV.SIG Q24H RAFY Rx#:[id number] Oral 560 / 560 240 / 240 Output: Urine 650 / 650 500 / 500 Other: Date of Last Bowel Movement 02/28/18 02/28/18 02/27/18 14:45 Blood - Peripheral Aerobic Blood Culture - Preliminary No growth in 2 days 02/27/18 14:45 Blood - Peripheral Anaerobic Blood Culture - Preliminary No growth in 2 days 02/27/18 14:40 Blood - Peripheral Aerobic Blood Culture - Preliminary No growth in 2 days 02/27/18 14:40 Blood - Peripheral Anaerobic Blood Culture - Preliminary No growth in 2 days Lab - Hematology Results 02/28/18 03/01/18 07:40 04:36 WBC 14.8 H 14.2 H RBC 3.82 L 3.57 L Hgb 10.0 L 9.5 L Hct 31.2 L 29.3 L MCV 81.6 81.9 MCH 26.2 L 26.5 L MCHC 32.1 32.4 RDW 17.8 H 17.9 H Plt Count 337 378 MPV 7.8 7.7 Prelim Diff (Auto) Slide review pending Neut % (Auto) 82.3 H 83.2 H Lymph % (Auto) 9.2 10.0 [place] % (Auto) 4.8 3.6 Eos % (Auto) 3.2 2.4 Baso % (Auto) 0.5 0.8 Neut # (Auto) 12.2 H 11.8 H Lymph # (Auto) 1.4 1.4 [place] # (Auto) 0.7 0.5 Eos # (Auto) 0.5 H 0.3 Baso # (Auto) 0.1 0.1 WBC Differential . . Differential Comment . Auto diff final Hematology Comments Lab - Chemistry Results 02/27/18 02/27/18 02/28/18 17:19 20:18 07:40 Sodium 135 L Potassium 4.2 Chloride 102 Carbon Dioxide 24.6 Anion Gap 8 BUN 19 H Creatinine 0.90 Estimated GFR 84 L POC Glucose 291 H 274 H Random Glucose 59 L D Calcium 8.5 Total Bilirubin 0.2 AST 20 ALT 10 L Alkaline Phosphatase 86 Total Protein 6.6 Albumin 1.5 L 02/28/18 02/28/18 02/28/18 08:09 11:48 16:49 Sodium Potassium Chloride Carbon Dioxide Anion Gap BUN Creatinine Estimated GFR POC Glucose 79 277 H 305 H Random Glucose Calcium Total Bilirubin AST ALT Alkaline Phosphatase Total Protein Albumin 02/28/18 03/01/18 03/01/18 21:02 04:36 07:53 Sodium 137 Potassium 4.4 Chloride 103 Carbon Dioxide 25.8 Anion Gap 8 BUN 23 H Creatinine 0.86 Estimated GFR 88 L POC Glucose 250 H 85 Random Glucose 100 Calcium 8.2 L Total Bilirubin 0.1 L AST 13 L ALT 12 Alkaline Phosphatase 89 Total Protein 6.3 L Albumin 1.5 L 03/01/18 12:42 Sodium Potassium Chloride Carbon Dioxide Anion Gap BUN Creatinine Estimated GFR POC Glucose 344 H Random Glucose Calcium Total Bilirubin AST ALT Alkaline Phosphatase Total Protein Albumin Imaging: ITS Impressions Chest X-Ray 02/25/18 14:18 CONCLUSION: 1. Worsening left mid to lower lung zone pleural parenchymal opacities correlating to sharply delineated posterior mediastinal pleural based opacity on prior chest radiographs and associated left lower lobe airspace disease. Given the short term development of the pleural-based opacity, between 2017 and 10/01/2017, suspect a loculated hemothorax with associated compressive atelectasis. Consider chest CT examination for better evaluation. Chest CT 02/25/18 17:48 CONCLUSION: 1. 8 cm loculated fluid collection in the lower left hemithorax also containing multiple locules of air. Differential diagnosis includes peripheral lung access or empyema. There is an associated small nonloculated left pleural effusion and fairly extensive bronchopneumonia in the left lung and to a lesser extent in the right upper lobe. CT Consultation 03/01/18 00:00 CONCLUSION: 1. Left lower lobe pulmonary abscess. Antibiotic therapy recommended. 2. A percutaneous catheter placement is not indicated for a pulmonary abscess as there is high risk for bronchopleural fistula. Physical Exam: GENERAL: No acute distress, Looks chronically ill. HEENT: Head is atraumatic and normocephalic. Extraocular movements are grossly intact. Pupils reactive to light. No icterus. Oropharynx mucosa moist. No visible lesions. No thrush. NECK: Supple, without adenopathy or swelling. LUNGS: Decreased breath sounds throughout. No audible rhonchi. HEART: Regular S1 and S2 with a II/ systolic murmur at left sternal border. ABDOMEN: Bowel sounds present, soft, nontender. Right lower abdomen colostomy in place and the skin around the colostomy has no signs of infection. EXTREMITIES: No clubbing, cyanosis or edema. SKIN: No diffuse rash. NEUROLOGIC: Non focal. PSYCHIATRIC: Calm and cooperative. Assessment and Plan - Plan IMPRESSION: 1. Left lung mass/abscess vs empyema. 2. Fever and leukocytosis, favoring abscess/empyema of the lung. RECOMMENDATIONS: 1. Continue clindamycin. 2. Continue ceftriaxone. 3. Continue azithromycin. 4. Follow blood cultures. 5. If we cannot do an interventional study to get diagnosis on this patient we will need to treat empirically and do follow-up radiographic studies. It will be difficult to determine appropriate antibiotics except for evaluated his response to treatment. I would continue to treat him with the current antibiotics and repeat x-ray again in few days and follow the white blood cell count and temperature. If he produces any sputum we can send a sample for culture as well. He needs 6 weeks of antibiotics fo treatment of the lung abscess.
--- NOTE | 2018-03-01 19:50 | P.PNPL ---
Subjective Interval history: 67 YOWM with Pneumonia, Lung density with air bubbles No Fever WBC decreasing Matthew No Cough or sp No CP IR consulted, chest cathetor not indicated due to risk of BP Fistula Physical Exam Vital signs: Vital Signs 02/28/18 20:00 02/28/18 20:36 03/01/18 00:00 Temperature 99.7 F H 98.8 F Pulse Rate 73 75 83 Respiratory Rate 18 18 Blood Pressure 122/59 L 105/58 L Pulse Oximetry 96 92 L 03/01/18 04:00 03/01/18 08:00 03/01/18 12:00 Temperature 101 F H 98.8 F 98.5 F Pulse Rate 70 73 73 Respiratory Rate 18 20 18 Blood Pressure 113/55 L 119/57 L 104/56 L Pulse Oximetry 95 94 L 97 03/01/18 15:37 03/01/18 16:00 Temperature 99.3 F Pulse Rate 72 68 Respiratory Rate 20 Blood Pressure 103/55 L Pulse Oximetry 96 95 Intake & Output 03/01/18 03/01/18 03/02/18 06:59 18:59 06:59 Intake Total 340 / 340 920 / 920 Output Total 500 / 500 600 / 600 Balance -160 / -160 320 / 320 Weight 68.9 kg Intake: IV 100 / 100 200 / 200 Cleocin 600 mg/NS Premix 600 mg 100 / 100 100 / 100 In 50 ml @ 100 mls/hr IV.SIG Q6H RAFY Rx#:[id number] Rocephin Inj 1,000 MG In NS Inj 100 / 100 100 ML @ 200 mls/hr IV.SIG Q24H RAFY Rx#:[id number] Oral 240 / 240 720 / 720 Output: Urine 500 / 500 300 / 300 Stool 300 / 300 Other: Date of Last Bowel Movement 02/28/18 GENERAL: Elderly WM, NAD SKIN: Warm and dry. HEAD: Normocephalic. EYES: No scleral icterus. No injection or drainage. NECK: Supple, trachea midline. No JVD or lymphadenopathy. CARDIOVASCULAR: Regular rate and rhythm without murmurs, gallops, or rubs. RESPIRATORY: Breath sounds equal bilaterally. No accessory muscle use. GASTROINTESTINAL: Abdomen soft, non-tender, nondistended. MUSCULOSKELETAL: No cyanosis, or edema. BACK: Nontender without obvious deformity. No CVA tenderness. Assessment and Plan - Plan ASSESSMENT AND PLAN: 1. Left lung pneumonia with some locules of air in it. Possible abscess or empyema. 2. Small pleural effusion. 3. Atrial fibrillation. 4. Diabetes mellitus. 5. Anxiety and depression. PLAN: Cont Abx Monitor CBC DW Pt and his at BS
[2018-03-02] MEDS: Clindamycin 600 mg/NS Premix 600 MG/50 ML PIGGYBACK IV.SIG SCH ×3 (01:42→13:36)
[2018-03-02 07:11] LABS: Baso # (Auto) 0.1 th/mm3 (0.0-0.2); Baso % (Auto) 0.7 % (0.0-2.0); Eos # (Auto) 0.3 th/mm3 (0.0-0.4); Eos % (Auto) 2.7 % (0.0-4.0); Hematocrit 26.8 % (39.0-51.0); Hemoglobin 9.1 gm/dL (13.0-17.0); Lymph # (Auto) 1.4 th/mm3 (1.0-4.8); Lymph % (Auto) 11.7 % (9.0-44.0); Mean Corpuscular HGB Conc 33.8 % (32.0-36.0); Mean Corpuscular Hemoglobin 27.7 pg (27.0-34.0); Mean Platelet Volume 7.6 fL (7.0-11.0); Mono # (Auto) 0.7 th/mm3 (0.0-0.9); Mono % (Auto) 5.8 % (0.0-8.0); Neut # (Auto) 9.8 th/mm3 (1.8-7.7); Neut % (Auto) 79.1 % (16.0-70.0); Platelet Count 366 th/mm3 (150-450); Red Blood Count 3.27 mil/mm3 (4.50-5.90); Red Cell Distribution Width 17.7 % (11.6-17.2); White Blood Count 12.4 th/mm3 (4.0-11.0)
[2018-03-02 07:40] LABS: Alanine Aminotransferase 13 U/L (12-78); Albumin 1.5 g/dL (3.4-5.0); Anion Gap 8 meq/L (5-15); Aspartate Aminotransferase 14 U/L (15-37); Blood Urea Nitrogen 21 mg/dL (7-18); Calcium 8.4 mg/dL (8.5-10.1); Carbon Dioxide 25.4 meq/L (21.0-32.0); Chloride 105 meq/L (98-107); Glomerular Filtration Rate Greater Than 89 mL/min (>89); Glucose,Random 70 mg/dL (74-106); Potassium 4.4 meq/L (3.5-5.1); Sodium 138 meq/L (136-145)
[2018-03-02 07:42] LABS: Alkaline Phosphatase 87 U/L (45-117); Total Protein 6.4 g/dL (6.4-8.2)
[2018-03-02] MEDS: Insulin NovoLOG Aspart Correctional Sugar Inj SQ SCH ×4 (08:00→21:58)
[2018-03-02] MEDS: Carvedilol 6.25 MG Tablet PO SCH ×2 (09:48→21:10)
[2018-03-02] MEDS: Venlafaxine XR 37.5 MG Capsule PO SCH (09:48)
[2018-03-02] MEDS: Mirtazapine 15 MG Tablet PO SCH (09:48)
[2018-03-02] MEDS: Ascorbic Acid 500 MG Tablet PO SCH ×2 (09:48→21:09)
[2018-03-02] MEDS: Azithromycin 250 MG Tablet PO SCH (09:48)
--- NOTE | 2018-03-02 11:40 | P.PNIM ---
Subjective Interval history: Clinically patient is slowly improving. No fevers overnight. No respiratory distress. Physical Exam Vital signs: Vital Signs 03/01/18 12:00 03/01/18 15:37 03/01/18 16:00 Temperature 98.5 F 99.3 F Pulse Rate 73 72 68 Respiratory Rate 18 20 Blood Pressure 104/56 L 103/55 L Pulse Oximetry 97 96 95 03/01/18 20:00 03/02/18 00:00 03/02/18 04:00 Temperature 98.4 F 99.2 F 99.1 F Pulse Rate 74 71 80 Respiratory Rate 20 16 16 Blood Pressure 112/56 L 110/53 L 113/59 L Pulse Oximetry 96 93 L 96 03/02/18 08:00 Temperature 99.3 F Pulse Rate 73 Respiratory Rate 18 Blood Pressure 122/59 L Pulse Oximetry 94 L Intake & Output 03/01/18 03/02/18 03/02/18 18:59 06:59 18:59 Intake Total 970 / 970 220 / 220 Output Total 600 / 600 250 / 250 Balance 370 / 370 -30 / -30 Weight 72.1 kg Intake: IV 250 / 250 100 / 100 Cleocin 600 mg/NS Premix 600 mg 150 / 150 100 / 100 In 50 ml @ 100 mls/hr IV.SIG Q6H RAFY Rx#:[id number] Rocephin Inj 1,000 MG In NS Inj 100 / 100 100 ML @ 200 mls/hr IV.SIG Q24H RAFY Rx#:[id number] Oral 720 / 720 120 / 120 Output: Urine 300 / 300 250 / 250 Stool 300 / 300 Other: # Bowel Movements 0 Narrative: GENERAL: NAD, A&Ox3 HEAD: Normocephalic. NECK: Supple, trachea midline. No lymphadenopathy. EYES: No scleral icterus. No injection or drainage. CARDIOVASCULAR: Regular rate and rhythm without murmurs, gallops, or rubs. RESPIRATORY: Breath sounds equal bilaterally. No accessory muscle use. GASTROINTESTINAL: Abdomen soft, non-tender, nondistended. MUSCULOSKELETAL: No cyanosis, or edema. SKIN: Warm and dry. NEURO: No focal neurological deficits. Results - Labs CBC & Chem 7: 03/02/18 06:19 03/02/18 06:19 Laboratory Results - last 24 hr 03/01/18 03/01/18 03/01/18 12:42 18:01 20:02 WBC RBC Hgb Hct MCV MCH MCHC RDW Plt Count MPV Neut % (Auto) Lymph % (Auto) [place] % (Auto) Eos % (Auto) Baso % (Auto) Neut # (Auto) Lymph # (Auto) [place] # (Auto) Eos # (Auto) Baso # (Auto) WBC Differential Differential Comment Sodium Potassium Chloride Carbon Dioxide Anion Gap BUN Creatinine Estimated GFR POC Glucose 344 H 266 H 219 H Random Glucose Calcium Total Bilirubin AST ALT Alkaline Phosphatase Total Protein Albumin 03/02/18 03/02/18 03/02/18 06:19 06:19 08:13 WBC 12.4 H RBC 3.27 L Hgb 9.1 L Hct 26.8 L MCV 82.0 MCH 27.7 MCHC 33.8 RDW 17.7 H Plt Count 366 MPV 7.6 Neut % (Auto) 79.1 H Lymph % (Auto) 11.7 [place] % (Auto) 5.8 Eos % (Auto) 2.7 Baso % (Auto) 0.7 Neut # (Auto) 9.8 H Lymph # (Auto) 1.4 [place] # (Auto) 0.7 Eos # (Auto) 0.3 Baso # (Auto) 0.1 WBC Differential . Differential Comment Auto diff final Sodium 138 Potassium 4.4 Chloride 105 Carbon Dioxide 25.4 Anion Gap 8 BUN 21 H Creatinine 0.79 Estimated GFR Greater than 89 POC Glucose 66 L Random Glucose 70 L Calcium 8.4 L Total Bilirubin 0.2 AST 14 L ALT 13 Alkaline Phosphatase 87 Total Protein 6.4 Albumin 1.5 L 03/02/18 10:07 WBC RBC Hgb Hct MCV MCH MCHC RDW Plt Count MPV Neut % (Auto) Lymph % (Auto) [place] % (Auto) Eos % (Auto) Baso % (Auto) Neut # (Auto) Lymph # (Auto) [place] # (Auto) Eos # (Auto) Baso # (Auto) WBC Differential Differential Comment Sodium Potassium Chloride Carbon Dioxide Anion Gap BUN Creatinine Estimated GFR POC Glucose 192 H Random Glucose Calcium Total Bilirubin AST ALT Alkaline Phosphatase Total Protein Albumin Microbiology 02/27/18 14:45 Blood - Peripheral Aerobic Blood Culture - Preliminary No growth in 3 days 02/27/18 14:45 Blood - Peripheral Anaerobic Blood Culture - Preliminary No growth in 3 days 02/27/18 14:40 Blood - Peripheral Aerobic Blood Culture - Preliminary No growth in 3 days 02/27/18 14:40 Blood - Peripheral Anaerobic Blood Culture - Preliminary No growth in 3 days - Imaging Impressions CT Consultation 03/01/18 00:00 CONCLUSION: 1. Left lower lobe pulmonary abscess. Antibiotic therapy recommended. 2. A percutaneous catheter placement is not indicated for a pulmonary abscess as there is high risk for bronchopleural fistula. Assessment and Plan - Assessment (1) Left pulmonary lesion Code(s): R91.1 - Solitary pulmonary nodule Status: Acute (2) Acute renal failure (ARF) Code(s): N17.9 - Acute kidney failure, unspecified Status: Acute (3) Diabetic hyperosmolar non-ketotic state Code(s): E11.00 - Type 2 diabetes mellitus with hyperosmolarity without nonketotic hyperglycemic-hyperosmolar coma (NKHHC) Status: Acute (4) Diabetes Code(s): E11.9 - Type 2 diabetes mellitus without complications Status: Acute (5) Chronic heart failure Code(s): I50.9 - Heart failure, unspecified Status: Acute (6) Depression Code(s): F32.9 - Major depressive disorder, single episode, unspecified Status : Acute (7) Atrial fibrillation Code(s): I48.91 - Unspecified atrial fibrillation Status: Acute - Plan 67-year-old male admitted secondary to left-sided pneumonia with possible empyema Plan for lung biopsy as radiology does not recommend this due to risk of fistula development. Fevers have resolved last night (first night without fevers). Continue antibiotics. ID following. Left pulmonary pneumonia with loculations fluid-filled loculations on CT, differential includes empyema versus abscess Pulmonology following Continue Rocephin and azithromycin and clindamycin Monitor CBC Monitor for any recurrence of fevers Hyperglycemia and type 2 diabetes Diabetes mellitus type 2 Follow blood sugars Insulin sliding scale Diabetic diet CHF with A. fib Stable, no exacerbation continue Coreg Consider Coumadin if no procedures are to be done by pulmonology Lasix on hold due to dehydration BP meds on hold due to hypotension h/o depression Continue antidepressants Psychiatry consult pending, appreciate assistance Mild cognitive deficit Continue Aricept Follow-up as outpatient for cognitive testing DVT Prophylaxis Heparin Discharge planning Rule out empyema prior to transition for discharge and initiate Coumadin prior to discharge (2) Acute renal failure (ARF) Qualifiers: Acute renal failure type: unspecified Qualified Code(s): N17.9 - Acute kidney failure, unspecified
--- NOTE | 2018-03-02 14:02 | P.PNID ---
Subjective Remarks: Patient says he feels okay. No cough. No sputum production. Denies chest pain. Blood culture has no growth. Temperature is lower. Denies sweats. This is a 67-year-old white male who presented to the emergency department on 02/25/2018 with weakness and hyperglycemia. The patient was having severe fatigue at home and was not getting out of bed. He was evaluated in the emergency department and his temperature was normal and his white count was also normal. The patient had elevated blood sugar. He was noted to be noncompliant with diabetic medicines. Chest x-ray was performed and it showed a loculated hemothorax. Subsequently, a CT scan of the lung was performed. The CT scan showed an 8 cm loculated fluid collection in the left lower hemithorax, containing multiple locules of air. There was also an associated small nonloculated left pleural effusion and fairly extensive bronchopneumonia in the left lung and to a lesser extent in the right upper lobe. Past Medical History: Diabetes mellitus type 1, hypertension, congestive heart failure, atrial fibrillation, cardiomyopathy, chronic malnutrition, colitis, pacemaker implantation 2 years ago, colostomy, and history of colectomy. Allergies/Adverse Reactions: Allergies No Known Allergies Adverse Reaction (Unknown, Uncoded 02/25/18 14:20) NONE Objective Vital Signs 03/01/18 15:37 03/01/18 16:00 03/01/18 20:00 Temperature 99.3 F 98.4 F Pulse Rate 72 68 74 Respiratory Rate 20 20 Blood Pressure 103/55 L 112/56 L Pulse Oximetry 96 95 96 03/02/18 00:00 03/02/18 04:00 03/02/18 08:00 Temperature 99.2 F 99.1 F 99.3 F Pulse Rate 71 80 73 Respiratory Rate 16 16 18 Blood Pressure 110/53 L 113/59 L 122/59 L Pulse Oximetry 93 L 96 94 L Intake & Output 03/01/18 03/02/18 03/02/18 18:59 06:59 18:59 Intake Total 970 / 970 220 / 220 Output Total 600 / 600 250 / 250 Balance 370 / 370 -30 / -30 Weight 72.1 kg Intake: IV 250 / 250 100 / 100 Cleocin 600 mg/NS Premix 600 mg 150 / 150 100 / 100 In 50 ml @ 100 mls/hr IV.SIG Q6H RAFY Rx#:[id number] Rocephin Inj 1,000 MG In NS Inj 100 / 100 100 ML @ 200 mls/hr IV.SIG Q24H RAFY Rx#:[id number] Oral 720 / 720 120 / 120 Output: Urine 300 / 300 250 / 250 Stool 300 / 300 Other: # Bowel Movements 0 02/27/18 14:45 Blood - Peripheral Aerobic Blood Culture - Preliminary No growth in 3 days 02/27/18 14:45 Blood - Peripheral Anaerobic Blood Culture - Preliminary No growth in 3 days 02/27/18 14:40 Blood - Peripheral Aerobic Blood Culture - Preliminary No growth in 3 days 02/27/18 14:40 Blood - Peripheral Anaerobic Blood Culture - Preliminary No growth in 3 days Lab - Hematology Results 03/01/18 03/02/18 04:36 06:19 WBC 14.2 H 12.4 H RBC 3.57 L 3.27 L Hgb 9.5 L 9.1 L Hct 29.3 L 26.8 L MCV 81.9 82.0 MCH 26.5 L 27.7 MCHC 32.4 33.8 RDW 17.9 H 17.7 H Plt Count 378 366 MPV 7.7 7.6 Neut % (Auto) 83.2 H 79.1 H Lymph % (Auto) 10.0 11.7 [place] % (Auto) 3.6 5.8 Eos % (Auto) 2.4 2.7 Baso % (Auto) 0.8 0.7 Neut # (Auto) 11.8 H 9.8 H Lymph # (Auto) 1.4 1.4 [place] # (Auto) 0.5 0.7 Eos # (Auto) 0.3 0.3 Baso # (Auto) 0.1 0.1 WBC Differential . . Differential Comment Auto diff final Auto diff final Lab - Chemistry Results 02/28/18 02/28/18 03/01/18 16:49 21:02 04:36 Sodium 137 Potassium 4.4 Chloride 103 Carbon Dioxide 25.8 Anion Gap 8 BUN 23 H Creatinine 0.86 Estimated GFR 88 L POC Glucose 305 H 250 H Random Glucose 100 Calcium 8.2 L Total Bilirubin 0.1 L AST 13 L ALT 12 Alkaline Phosphatase 89 Total Protein 6.3 L Albumin 1.5 L 03/01/18 03/01/18 03/01/18 07:53 12:42 18:01 Sodium Potassium Chloride Carbon Dioxide Anion Gap BUN Creatinine Estimated GFR POC Glucose 85 344 H 266 H Random Glucose Calcium Total Bilirubin AST ALT Alkaline Phosphatase Total Protein Albumin 03/01/18 03/02/18 03/02/18 20:02 06:19 08:13 Sodium 138 Potassium 4.4 Chloride 105 Carbon Dioxide 25.4 Anion Gap 8 BUN 21 H Creatinine 0.79 Estimated GFR Greater than 89 POC Glucose 219 H 66 L Random Glucose 70 L Calcium 8.4 L Total Bilirubin 0.2 AST 14 L ALT 13 Alkaline Phosphatase 87 Total Protein 6.4 Albumin 1.5 L 03/02/18 03/02/18 10:07 11:52 Sodium Potassium Chloride Carbon Dioxide Anion Gap BUN Creatinine Estimated GFR POC Glucose 192 H 274 H Random Glucose Calcium Total Bilirubin AST ALT Alkaline Phosphatase Total Protein Albumin Imaging: ITS Impressions Chest X-Ray 02/25/18 14:18 CONCLUSION: 1. Worsening left mid to lower lung zone pleural parenchymal opacities correlating to sharply delineated posterior mediastinal pleural based opacity on prior chest radiographs and associated left lower lobe airspace disease. Given the short term development of the pleural-based opacity, between 2017 and 10/01/2017, suspect a loculated hemothorax with associated compressive atelectasis. Consider chest CT examination for better evaluation. Chest CT 02/25/18 17:48 CONCLUSION: 1. 8 cm loculated fluid collection in the lower left hemithorax also containing multiple locules of air. Differential diagnosis includes peripheral lung access or empyema. There is an associated small nonloculated left pleural effusion and fairly extensive bronchopneumonia in the left lung and to a lesser extent in the right upper lobe. CT Consultation 03/01/18 00:00 CONCLUSION: 1. Left lower lobe pulmonary abscess. Antibiotic therapy recommended. 2. A percutaneous catheter placement is not indicated for a pulmonary abscess as there is high risk for bronchopleural fistula. Physical Exam: GENERAL: No acute distress, Looks chronically ill. HEENT: Head is atraumatic and normocephalic. Extraocular movements are grossly intact. Pupils reactive to light. No icterus. Oropharynx mucosa moist. No visible lesions. No thrush. NECK: Supple. LUNGS: Decreased breath sounds throughout. No audible rhonchi. HEART: Regular S1 and S2 with a II/ systolic murmur at left sternal border. ABDOMEN: Bowel sounds present, soft, nontender. Right lower abdomen colostomy in place and the skin around the colostomy has no signs of infection. EXTREMITIES: No clubbing, cyanosis or edema. SKIN: No diffuse rash. NEUROLOGIC: Non focal. PSYCHIATRIC: Calm and cooperative. Assessment and Plan - Plan IMPRESSION: 1. Large Left lung mass/abscess. 2. Fever and leukocytosis, favoring abscess of the lung. RECOMMENDATIONS: 1. Stop clindamycin 2. Start Unasyn IV to Unasyn. 3. Stop ceftriaxone. 4. Stop azithromycin. 5. Follow blood cultures. 6. Consult CT surgery. If he produces any sputum we can send a sample for culture as well. Discussed with Dr. Stubbs.
[2018-03-02] MEDS: Ampicillin/Sulbactam Inj 3 GM in Sodium Chloride 0.9% Inj 100 ML IV.SIG SCH ×2 (15:00→21:10)
[2018-03-02] MEDS ORDERED: Enoxaparin Inj 40 MG/0.4 ML Syringe SQ ONE (15:00)
--- NOTE | 2018-03-02 19:30 | P.PNPL ---
Subjective Interval history: 67 YOWM with Pneumonia, Lung density with air bubbles No Fever WBC decreasing Matthew No Cough or sp No CP Physical Exam Vital signs: Vital Signs 03/01/18 20:00 03/02/18 00:00 03/02/18 04:00 Temperature 98.4 F 99.2 F 99.1 F Pulse Rate 74 71 80 Respiratory Rate 20 16 16 Blood Pressure 112/56 L 110/53 L 113/59 L Pulse Oximetry 96 93 L 96 03/02/18 08:00 03/02/18 16:00 Temperature 98.9 F 99.0 F Pulse Rate 72 70 Respiratory Rate 18 18 Blood Pressure 120/60 117/56 L Pulse Oximetry 94 L 94 L Intake & Output 03/02/18 03/02/18 03/03/18 06:59 18:59 06:59 Intake Total 220 / 220 520 / 520 Output Total 250 / 250 2300 / 2300 Balance -30 / -30 -1780 / -1780 Weight 72.1 kg Intake: IV 100 / 100 Cleocin 600 mg/NS Premix 600 mg 100 / 100 In 50 ml @ 100 mls/hr IV.SIG Q6H RAFY Rx#:[id number] Oral 120 / 120 520 / 520 Output: Urine 250 / 250 1300 / 1300 Urine/Stool Mix 1000 / 1000 Other: # Bowel Movements 0 GENERAL: MBMN WM,NAD SKIN: Warm and dry. HEAD: Normocephalic. EYES: No scleral icterus. No injection or drainage. NECK: Supple, trachea midline. No JVD or lymphadenopathy. CARDIOVASCULAR: Regular rate and rhythm without murmurs, gallops, or rubs. RESPIRATORY: Breath sounds equal bilaterally. No accessory muscle use. GASTROINTESTINAL: Abdomen soft, non-tender, nondistended. MUSCULOSKELETAL: No cyanosis, or edema. BACK: Nontender without obvious deformity. No CVA tenderness. Assessment and Plan - Plan ASSESSMENT AND PLAN: 1. Left lung pneumonia with some locules of air in it. Possible abscess or empyema. 2. Small pleural effusion. 3. Atrial fibrillation. 4. Diabetes mellitus. 5. Anxiety and depression. PLAN: Cont Abx Monitor CBC DW Pt and his at BS Stable on RA
[2018-03-03] MEDS: Ampicillin/Sulbactam Inj 3 GM in Sodium Chloride 0.9% Inj 100 ML IV.SIG SCH ×4 (03:31→21:20)
[2018-03-03 07:32] LABS: INR 1.1 Ratio; Prothrombin Time 10.8 sec (9.8-11.6)
[2018-03-03] MEDS: Carvedilol 6.25 MG Tablet PO SCH ×2 (09:09→21:21)
[2018-03-03] MEDS: Ascorbic Acid 500 MG Tablet PO SCH ×2 (09:09→21:20)
[2018-03-03] MEDS: Venlafaxine XR 37.5 MG Capsule PO SCH (09:10)
[2018-03-03] MEDS: Mirtazapine 15 MG Tablet PO SCH (09:10)
[2018-03-03] MEDS: Insulin NovoLOG Aspart Correctional Sugar Inj SQ SCH ×4 (09:10→21:21)
--- NOTE | 2018-03-03 11:48 | P.PNIM ---
Subjective Interval history: Long-acting insulins held originally due to hypoglycemia. At this point patient has hyperglycemia and long-acting insulins are resumed. No fevers overnight. No complaints of pain. Physical Exam Vital signs: Vital Signs 03/02/18 12:00 03/02/18 16:00 03/02/18 20:00 Temperature 99.0 F 99 F Pulse Rate 69 84 71 Respiratory Rate 18 16 Blood Pressure 117/56 L 122/59 L Pulse Oximetry 94 L 98 03/03/18 00:00 03/03/18 04:00 Temperature 98.3 F 98.2 F Pulse Rate 64 76 Respiratory Rate 18 18 Blood Pressure 116/58 L 130/60 Pulse Oximetry 98 93 L Intake & Output 03/02/18 03/03/18 03/03/18 18:59 06:59 18:59 Intake Total 620 / 620 920 / 920 Output Total 2300 / 2300 785 / 785 Balance -1680 / -1680 135 / 135 Weight 71.2 kg Intake: IV 100 / 100 200 / 200 Unasyn Inj 3 GM In NS Inj 100 100 / 100 200 / 200 ML @ 200 mls/hr IV.SIG Q6H RAFY Rx#:[id number] Oral 520 / 520 720 / 720 Output: Urine 1300 / 1300 785 / 785 Urine/Stool Mix 1000 / 1000 Other: Date of Last Bowel Movement 03/03/18 # Bowel Movements 0 Narrative: GENERAL: NAD, A&Ox3 HEAD: Normocephalic. NECK: Supple, trachea midline. No lymphadenopathy. EYES: No scleral icterus. No injection or drainage. CARDIOVASCULAR: Regular rate and rhythm without murmurs, gallops, or rubs. RESPIRATORY: Breath sounds equal bilaterally. No accessory muscle use. GASTROINTESTINAL: Abdomen soft, non-tender, nondistended. MUSCULOSKELETAL: No cyanosis, or edema. SKIN: Warm and dry. NEURO: No focal neurological deficits. Results - Labs CBC & Chem 7: 03/02/18 06:19 03/02/18 06:19 Laboratory Results - last 24 hr 03/02/18 03/02/18 03/02/18 11:52 18:03 21:12 ESR PT INR POC Glucose 274 H 393 H 415 H 03/03/18 03/03/18 03/03/18 06:00 06:00 08:04 ESR Greater than 140 H PT 10.8 INR 1.1 POC Glucose 433 H Microbiology 02/27/18 14:45 Blood - Peripheral Aerobic Blood Culture - Preliminary No growth in 4 days 02/27/18 14:45 Blood - Peripheral Anaerobic Blood Culture - Preliminary No growth in 4 days 02/27/18 14:40 Blood - Peripheral Aerobic Blood Culture - Preliminary No growth in 4 days 02/27/18 14:40 Blood - Peripheral Anaerobic Blood Culture - Preliminary No growth in 4 days Assessment and Plan - Assessment (1) Left pulmonary lesion Code(s): R91.1 - Solitary pulmonary nodule Status: Acute (2) Acute renal failure (ARF) Code(s): N17.9 - Acute kidney failure, unspecified Status: Acute (3) Diabetic hyperosmolar non-ketotic state Code(s): E11.00 - Type 2 diabetes mellitus with hyperosmolarity without nonketotic hyperglycemic-hyperosmolar coma (NKHHC) Status: Acute (4) Diabetes Code(s): E11.9 - Type 2 diabetes mellitus without complications Status: Acute (5) Chronic heart failure Code(s): I50.9 - Heart failure, unspecified Status: Acute (6) Depression Code(s): F32.9 - Major depressive disorder, single episode, unspecified Status : Acute (7) Atrial fibrillation Code(s): I48.91 - Unspecified atrial fibrillation Status: Acute - Plan 67-year-old male admitted secondary to left-sided pneumonia with possible empyema Resume Levemir for hyperglycemia. Monitor blood sugars closely. Cardiothoracic surgeon consult pending. Left pulmonary pneumonia with loculations fluid-filled loculations on CT, differential includes empyema versus abscess Pulmonology following Continue Rocephin and azithromycin and clindamycin Monitor CBC Monitor for any recurrence of fevers Hyperglycemia and type 2 diabetes Diabetes mellitus type 2 Follow blood sugars Insulin sliding scale Diabetic diet CHF with A. fib Stable, no exacerbation continue Coreg Consider Coumadin if no procedures are to be done by pulmonology Lasix on hold due to dehydration BP meds on hold due to hypotension h/o depression Continue antidepressants Psychiatry consult pending, appreciate assistance Mild cognitive deficit Continue Aricept Follow-up as outpatient for cognitive testing DVT Prophylaxis Heparin Discharge planning Rule out empyema prior to transition for discharge and initiate Coumadin prior to discharge (2) Acute renal failure (ARF) Qualifiers: Acute renal failure type: unspecified Qualified Code(s): N17.9 - Acute kidney failure, unspecified
[2018-03-03] MEDS ORDERED: Insulin Detemir Inj 1,000 UNIT/10 ML Vial SQ ONE (12:05)
--- NOTE | 2018-03-03 13:35 | MB ---
cc: Palma Berumen MD DATE: 03/03/2018 DATE OF : 1950 HISTORY OF PRESENT ILLNESS: This is a 67-year-old male who presented to the emergency room complaining of severe fatigue at home, apparently has been somewhat noncompliant with his diabetic medications. He lives in a [place]. He normally drives back and forth to [place], but this year he stayed in the area because of not feeling well since last April where he had surgery that included a colectomy and a colostomy that they are working on possibly closing. He has lost about 15 pounds over the last 3 months, he states because of his sugars have been uncontrolled. He did have a low-grade temperature of 100.9. The white cell count was 19,000. We were consulted because his CT chest showed a left lower lobe air broncho-diagrams with possible postobstructive pneumonia. We were consulted to evaluate for possible left VATS. However, after Dr. Berumen reviewed the scan, it seems to be more of a postobstructive pneumonia, not much fluid and/or air-fluid levels. He does have a cough that he has had since he has been in the hospital. PAST MEDICAL HISTORY: Diabetes mellitus, uncontrolled hypertension, CHF, atrial fibrillation. He was on Eliquis in the past, but had to stop because of cost and he was supposed to start on Coumadin, cardiomyopathy, chronic malnutrition. PAST SURGICAL HISTORY: He has a pacer in situ left upper chest wall. Other surgeries include the recent colectomy and colostomy in May 2017. REVIEW OF SYSTEMS: As above in the initial H and P, otherwise 12 systems unremarkable. SOCIAL HISTORY: Please note that the [place]. He denies any recent travel. No ill contact with sick persons. No unusual animal contact. ALLERGIES: NO KNOWN DRUG ALLERGIES. MEDICATIONS: Patient's home meds include: 1. Lasix. 2. Gabapentin. 3. Potassium. 4. Aspirin. 5. Coreg. 6. Aricept. 7. Prozac. 8. Mirtazapine 9. Protonix. FAMILY HISTORY: Noncontributory. SOCIAL HISTORY: , has 4 children. He comes from the [facility], [place]. PHYSICAL EXAMINATION: VITAL SIGNS: Blood pressure 130/60, heart rate of 76, afebrile, O2 saturation 93 on room air. GENERAL: Awake, alert, in no acute distress. HEENT: Head is normocephalic, atraumatic. Pupils equal and reactive. Oral mucosa pink, moist. NECK: Supple. No JVD. HEART: Sounds S1, S2. He has got a grade 2-3/6 systolic murmur best noted at the left sternal border. LUNGS: Diminished on the left lower lobe with some crackles. The right is fairly clear. ABDOMEN: Soft, nontender. No masses or organomegaly. EXTREMITIES: No cyanosis, clubbing, or edema. LABORATORY DATA: Shows a hemoglobin of 9.1, hematocrit of 26. White cell count of 12, platelet count of 366. Sodium 138, potassium 4.4, BUN 21, creatinine 0.79. His last glucose was 415. Albumin 1.5. INR 1.1. Blood cultures: No growth in 4 days. IMPRESSION: The patient is a 67-year-old male, somewhat cachectic, apparent consultation for possible left pulmonary lesion. Again, the films have been evaluated by Dr. Palma Berumen and appears more as air bronchograms with postobstructive pneumonia. Dr. Berumen did speak directly to Dr. Deleon about evaluation with possible bronchoscopy, which can obtain cultures and possible biopsy if needed. In the meantime, continue antibiotic therapy. We will follow along accordingly. No surgical intervention warranted at this time. Dictated by MARCUS Robert MD BETINA Correa/CRYS , 12:59 PM , 01:22 PM
[2018-03-03] MEDS ORDERED: Enoxaparin Inj 40 MG/0.4 ML Syringe SQ SCH (15:00)
--- NOTE | 2018-03-03 18:20 | P.PNPL ---
Subjective Interval history: 67 YOWM with Pneumonia, Lung density with air bubbles No Fever WBC decreasing Matthew No Cough or sp No CP Seen by , advised Bronch Physical Exam Vital signs: Vital Signs 03/02/18 20:00 03/03/18 00:00 03/03/18 04:00 Temperature 99 F 98.3 F 98.2 F Pulse Rate 71 64 76 Respiratory Rate 16 18 18 Blood Pressure 122/59 L 116/58 L 130/60 Pulse Oximetry 98 98 93 L 03/03/18 08:00 03/03/18 12:00 Temperature 98.7 F 98.1 F Pulse Rate 76 69 Respiratory Rate 16 16 Blood Pressure 123/58 L 109/55 L Pulse Oximetry 94 L 96 Intake & Output 03/02/18 03/03/18 03/03/18 18:59 06:59 18:59 Intake Total 620 / 620 920 / 920 100 / 100 Output Total 2300 / 2300 785 / 785 800 / 800 Balance -1680 / -1680 135 / 135 -700 / -700 Weight 71.2 kg Intake: IV 100 / 100 200 / 200 100 / 100 Unasyn Inj 3 GM In NS Inj 100 100 / 100 200 / 200 100 / 100 ML @ 200 mls/hr IV.SIG Q6H RAFY Rx#:[id number] Oral 520 / 520 720 / 720 Output: Urine 1300 / 1300 785 / 785 500 / 500 Urine/Stool Mix 1000 / 1000 Stool Amount (Stoma) 300 / 300 Pre-Hospital: 300 / 300 Other: Date of Last Bowel Movement 03/03/18 # Bowel Movements 0 GENERAL: MBMN WM, NAD SKIN: Warm and dry. HEAD: Normocephalic. EYES: No scleral icterus. No injection or drainage. NECK: Supple, trachea midline. No JVD or lymphadenopathy. CARDIOVASCULAR: Regular rate and rhythm without murmurs, gallops, or rubs. RESPIRATORY: Breath sounds equal bilaterally. No accessory muscle use. GASTROINTESTINAL: Abdomen soft, non-tender, nondistended. MUSCULOSKELETAL: No cyanosis, or edema. BACK: Nontender without obvious deformity. No CVA tenderness. Assessment and Plan - Plan ASSESSMENT AND PLAN: 1. Left lung pneumonia with some locules of air in it. Possible abscess or empyema. 2. Small pleural effusion. 3. Atrial fibrillation. 4. Diabetes mellitus. 5. Anxiety and depression. PLAN: Cont Abx Monitor CBC DW Pt and his at BS Stable on RA DW Pt will need bronch and possible bx Explained procedure and possible complications Agrees for bronch for tommorrow.
[2018-03-03] MEDS: Insulin Detemir Inj 1,000 UNIT/10 ML Vial SQ SCH (21:22)
[2018-03-04] MEDS: Ampicillin/Sulbactam Inj 3 GM in Sodium Chloride 0.9% Inj 100 ML IV.SIG SCH ×4 (04:15→21:35)
[2018-03-04] MEDS: Insulin NovoLOG Aspart Correctional Sugar Inj SQ SCH ×4 (09:36→21:36)
[2018-03-04] MEDS: Insulin Detemir Inj 1,000 UNIT/10 ML Vial SQ SCH ×2 (09:37→21:36)
[2018-03-04] MEDS ORDERED: Succinylcholine Inj 100 MG/5 ML Syringe IV.PUSH ONE (12:00)
[2018-03-04] MEDS ORDERED: Phenylephrine/NS 1000 MCG/10ML Syringe IV.PUSH ONE (12:00)
[2018-03-04] MEDS ORDERED: Lidocaine PF 1% Inj 5 ML Syringe INFILTRATN ONE (12:00)
[2018-03-04] MEDS: Carvedilol 6.25 MG Tablet PO SCH ×2 (12:12→21:36)
[2018-03-04] MEDS: Mirtazapine 15 MG Tablet PO SCH (12:12)
[2018-03-04] MEDS: Ascorbic Acid 500 MG Tablet PO SCH ×2 (12:12→21:36)
[2018-03-04] MEDS: Venlafaxine XR 37.5 MG Capsule PO SCH (12:12)
--- NOTE | 2018-03-04 12:54 | P.PNIM ---
Subjective Interval history: N.p.o. for bronchoscopy this afternoon. Mouth is present. No other complaints. Physical Exam Vital signs: Vital Signs 03/03/18 16:00 03/03/18 20:00 03/04/18 00:00 Temperature 98.7 F 98.6 F Pulse Rate 70 69 66 Respiratory Rate 18 18 Blood Pressure 96/52 L 106/51 L Pulse Oximetry 95 91 L 03/04/18 04:00 03/04/18 08:00 Temperature 98.4 F 98.4 F Pulse Rate 77 69 Respiratory Rate 18 16 Blood Pressure 123/60 109/53 L Pulse Oximetry 94 L 94 L Intake & Output 03/03/18 03/04/18 03/04/18 18:59 06:59 18:59 Intake Total 1040 / 1040 1240 / 1240 Output Total 1300 / 1300 1350 / 1350 Balance -260 / -260 -110 / -110 Weight 70.3 kg Intake: IV 200 / 200 200 / 200 Unasyn Inj 3 GM In NS Inj 100 200 / 200 200 / 200 ML @ 200 mls/hr IV.SIG Q6H RAFY Rx#:[id number] Oral 840 / 840 1040 / 1040 Output: Urine 1000 / 1000 700 / 700 Stool 650 / 650 Stool Amount (Stoma) 300 / 300 Pre-Hospital: 300 / 300 Other: Date of Last Bowel Movement 03/03/18 03/03/18 # Bowel Movements 0 Narrative: GENERAL: NAD, A&Ox3 HEAD: Normocephalic. NECK: Supple, trachea midline. No lymphadenopathy. EYES: No scleral icterus. No injection or drainage. CARDIOVASCULAR: Regular rate and rhythm without murmurs, gallops, or rubs. RESPIRATORY: Breath sounds equal bilaterally. No accessory muscle use. GASTROINTESTINAL: Abdomen soft, non-tender, nondistended. MUSCULOSKELETAL: No cyanosis, or edema. SKIN: Warm and dry. NEURO: No focal neurological deficits. Results - Labs CBC & Chem 7: 03/02/18 06:19 03/02/18 06:19 Laboratory Results - last 24 hr 03/03/18 03/03/18 03/04/18 17:27 21:05 08:10 POC Glucose 378 H 246 H 344 H 03/04/18 11:59 POC Glucose 268 H Microbiology 02/27/18 14:45 Blood - Peripheral Aerobic Blood Culture - Final No growth in 5 days 02/27/18 14:45 Blood - Peripheral Anaerobic Blood Culture - Final No growth in 5 days 02/27/18 14:40 Blood - Peripheral Aerobic Blood Culture - Final No growth in 5 days 02/27/18 14:40 Blood - Peripheral Anaerobic Blood Culture - Final No growth in 5 days Assessment and Plan - Assessment (1) Left pulmonary lesion Code(s): R91.1 - Solitary pulmonary nodule Status: Acute (2) Acute renal failure (ARF) Code(s): N17.9 - Acute kidney failure, unspecified Status: Acute (3) Diabetic hyperosmolar non-ketotic state Code(s): E11.00 - Type 2 diabetes mellitus with hyperosmolarity without nonketotic hyperglycemic-hyperosmolar coma (NKHHC) Status: Acute (4) Diabetes Code(s): E11.9 - Type 2 diabetes mellitus without complications Status: Acute (5) Chronic heart failure Code(s): I50.9 - Heart failure, unspecified Status: Acute (6) Depression Code(s): F32.9 - Major depressive disorder, single episode, unspecified Status : Acute (7) Atrial fibrillation Code(s): I48.91 - Unspecified atrial fibrillation Status: Acute - Plan 67-year-old male admitted secondary to left-sided pneumonia with possible empyema Plan for bronchoscopy this afternoon. Continue monitoring patient's blood sugars. Adjust diabetic treatments as needed. Monitor postprocedure for any shortness of breath. Left pulmonary pneumonia with loculations fluid-filled loculations on CT, differential includes empyema versus abscess Pulmonology following Continue Rocephin and azithromycin and clindamycin Monitor CBC Monitor for any recurrence of fevers Hyperglycemia and type 2 diabetes Diabetes mellitus type 2 Follow blood sugars Insulin sliding scale Diabetic diet CHF with A. fib Stable, no exacerbation continue Coreg Consider Coumadin if no procedures are to be done by pulmonology Lasix on hold due to dehydration BP meds on hold due to hypotension h/o depression Continue antidepressants Psychiatry consult pending, appreciate assistance Mild cognitive deficit Continue Aricept Follow-up as outpatient for cognitive testing DVT Prophylaxis Heparin Discharge planning Rule out empyema prior to transition for discharge and initiate Coumadin prior to discharge (2) Acute renal failure (ARF) Qualifiers: Acute renal failure type: unspecified Qualified Code(s): N17.9 - Acute kidney failure, unspecified
--- NOTE | 2018-03-04 15:45 | MP ---
cc: Jovani Deleon MD DATE OF OPERATION: 03/04/2018 PROCEDURE: Bronchoscopy. PREOPERATIVE DIAGNOSIS: Left lung infiltrate. POSTOPERATIVE DIAGNOSIS: Mucus plugging and a lot of pus-like material suctioned from the left lower lobe. INDICATIONS FOR PROCEDURE: Informed consent was obtained from the patient. Complications, including Complication of anesthesia, pneumothorax requiring chest tube, bleeding complication; injury to the blood vessel, lungs, and nerves; arrhythmia, hypoxia, and need for ventilator was explained, and he consented for the procedure. PROCEDURE IN DETAIL: The patient was brought to endoscopy suite, and under general anesthesia an endotracheal tube was placed by anesthesiologist. Bronchoscopy was done through endotracheal tube. Main jose was sharp. Bronchoscope advanced to the right lung. Right upper, middle, and lower lobes were visualized. All subsegments were patent. No endobronchial mucosal lesion was seen. Then, bronchoscope was pulled back and advanced to the left lung, and left upper lingular and lower lobe were visualized. There was lot of pus-like material coming from the left lower lobe. A lot of suctions and washings were done and the material was completely washed out after repeated suctioning. The lungs were cleaned. Airway was inspected again. Mucosa in the left lower lobe was friable. No endobronchial lesion was seen. Left lower lobe washings and brushings were done. Brushing was sent for cytology. Washing was sent for cytology, routine culture, AFB, and fungal culture. He tolerated the procedure well. Postprocedure chest x-ray is ordered. MD BECKIE Stanton/eduardo/gunnar , 02:59 PM , 03:06 PM
--- NOTE | 2018-03-04 16:11 | XR ---
EXAM DATE: 03/04/2018 3:03 PM EDT AGE/SEX: 67 years / Male INDICATIONS: Post Brochoscopy. CLINICAL DATA: This is the patient's initial encounter. Patient reports that signs and symptoms have been present for 1 day and indicates a pain score of Nonresponsive. MEDICAL/SURGICAL HISTORY: Non-responsive. Non-responsive. [place] [facility] [place]. [facility] [place] 1[place], [place]/25/2018. . FINDINGS: Large masslike area in the left lower lobe unchanged. Right lung remains clear. No large effusions se en. No pneumothorax. Heart size stable, within normal limits. Cardiac pacer again noted. CONCLUSION: 1. No pneumothorax or other acute abnormality post bronchoscopy. 2. Left lower lobe masslike area again noted. Electronically signed by: Forrest Grady MD 03/04/2018 4:10 PM EDT
--- NOTE | 2018-03-04 17:41 | P.PNPL ---
Subjective Interval history: 67 YOWM with Pneumonia, Lung density with air bubbles No Fever WBC decreasing No Cough or sp No CP Had Bronch, lot of pus like material suctioned from LLL Physical Exam Vital signs: Vital Signs 03/03/18 20:00 03/04/18 00:00 03/04/18 04:00 Temperature 98.7 F 98.6 F 98.4 F Pulse Rate 69 66 77 Respiratory Rate 18 18 18 Blood Pressure 96/52 L 106/51 L 123/60 Pulse Oximetry 95 91 L 94 L 03/04/18 08:00 03/04/18 12:00 03/04/18 13:25 Temperature 98.4 F 99.0 F Pulse Rate 85 70 68 Respiratory Rate 16 18 Blood Pressure 109/53 L 130/64 Pulse Oximetry 94 L 94 L 03/04/18 13:36 03/04/18 15:07 03/04/18 15:15 Temperature 98.4 F 96.8 F L Pulse Rate 65 80 69 Respiratory Rate 16 16 16 Blood Pressure 123/58 L 119/60 124/59 L Pulse Oximetry 96 100 96 03/04/18 15:30 03/04/18 15:38 Temperature 98.9 F Pulse Rate 66 68 Respiratory Rate 16 20 Blood Pressure 116/60 105/57 L Pulse Oximetry 98 98 Intake & Output 03/03/18 03/04/18 03/04/18 18:59 06:59 18:59 Intake Total 1040 / 1040 1240 / 1240 100 / 100 Output Total 1300 / 1300 1350 / 1350 0 / 0 Balance -260 / -260 -110 / -110 100 / 100 Weight 70.3 kg Intake: IV 200 / 200 200 / 200 100 / 100 Unasyn Inj 3 GM In NS Inj 100 200 / 200 200 / 200 100 / 100 ML @ 200 mls/hr IV.SIG Q6H RAFY Rx#:[id number] Oral 840 / 840 1040 / 1040 0 / 0 Output: Urine 1000 / 1000 700 / 700 0 / 0 Stool 650 / 650 Stool Amount (Stoma) 300 / 300 Pre-Hospital: 300 / 300 Other: Date of Last Bowel Movement 03/03/18 03/03/18 03/03/18 # Bowel Movements 0 GENERAL: MBMN WM,NAD SKIN: Warm and dry. HEAD: Normocephalic. EYES: No scleral icterus. No injection or drainage. NECK: Supple, trachea midline. No JVD or lymphadenopathy. CARDIOVASCULAR: Regular rate and rhythm without murmurs, gallops, or rubs. RESPIRATORY: Breath sounds equal bilaterally. No accessory muscle use. GASTROINTESTINAL: Abdomen soft, non-tender, nondistended. MUSCULOSKELETAL: No cyanosis, or edema. BACK: Nontender without obvious deformity. No CVA tenderness. Assessment and Plan - Plan ASSESSMENT AND PLAN: 1. Left lung pneumonia with some locules of air in it. Possible abscess or empyema. 2. Small pleural effusion. 3. Atrial fibrillation. 4. Diabetes mellitus. 5. Anxiety and depression. PLAN: Cont Abx Monitor CBC DW Pt and his at BS Stable on RA Check Bronch results
[2018-03-05] MEDS: Ampicillin/Sulbactam Inj 3 GM in Sodium Chloride 0.9% Inj 100 ML IV.SIG SCH ×4 (03:18→22:42)
[2018-03-05] MEDS: Ascorbic Acid 500 MG Tablet PO SCH ×2 (08:30→22:42)
[2018-03-05] MEDS: Carvedilol 6.25 MG Tablet PO SCH ×2 (08:30→22:43)
[2018-03-05] MEDS: Mirtazapine 15 MG Tablet PO SCH (08:30)
[2018-03-05] MEDS: Venlafaxine XR 37.5 MG Capsule PO SCH (08:30)
[2018-03-05] MEDS: Insulin NovoLOG Aspart Correctional Sugar Inj SQ SCH ×4 (08:33→22:43)
[2018-03-05] MEDS: Insulin Detemir Inj 1,000 UNIT/10 ML Vial SQ SCH ×2 (08:34→22:43)
--- NOTE | 2018-03-05 12:49 | P.PNID ---
Subjective Remarks: Patient says he feels okay. Notes the he wants more food. S/P bronchoscopy. Purulent secretions noted. Bronch Culture pending. No cough. No sputum production. Denies chest pain. Blood culture has no growth. Afebrile. This is a 67-year-old white male who presented to the emergency department on 02/25/2018 with weakness and hyperglycemia. The patient was having severe fatigue at home and was not getting out of bed. He was evaluated in the emergency department and his temperature was normal and his white count was also normal. The patient had elevated blood sugar. He was noted to be noncompliant with diabetic medicines. Chest x-ray was performed and it showed a loculated hemothorax. Subsequently, a CT scan of the lung was performed. The CT scan showed an 8 cm loculated fluid collection in the left lower hemithorax, containing multiple locules of air. There was also an associated small nonloculated left pleural effusion and fairly extensive bronchopneumonia in the left lung and to a lesser extent in the right upper lobe. Past Medical History: Diabetes mellitus type 1, hypertension, congestive heart failure, atrial fibrillation, cardiomyopathy, chronic malnutrition, colitis, pacemaker implantation 2 years ago, colostomy, and history of colectomy. Allergies/Adverse Reactions: Allergies No Known Allergies Adverse Reaction (Unknown, Uncoded 02/25/18 14:20) NONE Objective Vital Signs 03/04/18 13:25 03/04/18 13:36 03/04/18 15:07 Temperature 99.0 F 98.4 F 96.8 F L Pulse Rate 68 65 80 Respiratory Rate 18 16 16 Blood Pressure 130/64 123/58 L 119/60 Pulse Oximetry 94 L 96 100 03/04/18 15:15 03/04/18 15:30 03/04/18 15:38 Temperature 98.9 F Pulse Rate 69 66 68 Respiratory Rate 16 16 20 Blood Pressure 124/59 L 116/60 105/57 L Pulse Oximetry 96 98 98 03/04/18 16:00 03/04/18 20:00 03/04/18 23:38 Temperature 97.3 F L 97.4 F L Pulse Rate 65 81 70 Respiratory Rate 18 18 Blood Pressure 121/58 L 104/55 L Pulse Oximetry 92 L 93 L 03/05/18 00:00 03/05/18 03:45 03/05/18 04:00 Temperature 99.5 F Pulse Rate 75 75 71 Respiratory Rate 18 Blood Pressure 108/53 L Pulse Oximetry 90 L 03/05/18 07:28 Temperature 99.6 F Pulse Rate Respiratory Rate 19 Blood Pressure 125/60 Pulse Oximetry 93 L Intake & Output 03/04/18 03/05/18 03/05/18 18:59 06:59 18:59 Intake Total 680 / 680 440 / 440 100 / 100 Output Total 1999 0 / 0 Balance -1320 / -1320 440 / 440 100 / 100 Weight 4.8 kg Intake: IV 200 / 200 200 / 200 100 / 100 Unasyn Inj 3 GM In NS Inj 100 200 / 200 200 / 200 100 / 100 ML @ 200 mls/hr IV.SIG Q6H RAFY Rx#:[id number] Oral 480 / 480 240 / 240 Output: Urine 1999 0 / 0 Other: Date of Last Bowel Movement 03/03/18 # Bowel Movements 1 03/04/18 14:36 Bronchial - Left Lower Lobe Gram Stain - Final 03/04/18 14:36 Bronchial - Left Lower Lobe Bronchial Culture - Preliminary Rare growth normal respiratory daniel at 24 hours 03/04/18 14:36 Bronchial - Left Lower Lobe Gram Stain - Final 03/04/18 14:36 Bronchial - Left Lower Lobe Bronchial Culture - Preliminary Rare growth normal respiratory daniel at 24 hours 03/04/18 14:38 Bronchial Washings - Left Lower Lobe Fungal Smear - Final No fungal elements seen 03/04/18 14:38 Bronchial Washings - Left Lower Lobe Fungal Culture - Pending 03/04/18 14:38 Bronchial Washings - Left Lower Lobe Fungal Smear - Final Rare budding yeast 03/04/18 14:38 Bronchial Washings - Left Lower Lobe Fungal Culture - Pending 03/04/18 14:38 Bronchial Washings - Left Lower Lobe Acid Fast Bacilli Smear - Pending 03/04/18 14:38 Bronchial Washings - Left Lower Lobe Mycobacterial Culture - Pending 03/04/18 14:38 Bronchial Washings - Left Lower Lobe Acid Fast Bacilli Smear - Pending 03/04/18 14:38 Bronchial Washings - Left Lower Lobe Mycobacterial Culture - Pending 02/27/18 14:45 Blood - Peripheral Aerobic Blood Culture - Final No growth in 5 days 02/27/18 14:45 Blood - Peripheral Anaerobic Blood Culture - Final No growth in 5 days 02/27/18 14:40 Blood - Peripheral Aerobic Blood Culture - Final No growth in 5 days 02/27/18 14:40 Blood - Peripheral Anaerobic Blood Culture - Final No growth in 5 days Lab - Chemistry Results 03/03/18 03/03/18 03/04/18 17:27 21:05 08:10 POC Glucose 378 H 246 H 344 H 03/04/18 03/04/18 03/04/18 11:59 15:11 16:29 POC Glucose 268 H 92 65 L 03/04/18 03/04/18 03/05/18 21:06 23:13 03:20 POC Glucose 346 H 331 H 212 H 03/05/18 03/05/18 06:57 12:10 POC Glucose 113 H 163 H Imaging: ITS Impressions Chest CT 02/25/18 17:48 CONCLUSION: 1. 8 cm loculated fluid collection in the lower left hemithorax also containing multiple locules of air. Differential diagnosis includes peripheral lung access or empyema. There is an associated small nonloculated left pleural effusion and fairly extensive bronchopneumonia in the left lung and to a lesser extent in the right upper lobe. CT Consultation 03/01/18 00:00 CONCLUSION: 1. Left lower lobe pulmonary abscess. Antibiotic therapy recommended. 2. A percutaneous catheter placement is not indicated for a pulmonary abscess as there is high risk for bronchopleural fistula. Chest X-Ray 03/04/18 14:57 CONCLUSION: 1. No pneumothorax or other acute abnormality post bronchoscopy. 2. Left lower lobe masslike area again noted. Physical Exam: GENERAL: No acute distress, Looks chronically ill. HEENT: Extraocular movements are grossly intact. Pupils reactive to light. No icterus. Oropharynx mucosa moist. No visible lesions. No thrush. NECK: Supple. LUNGS: Decreased breath sounds. HEART: Regular S1 and S2 with a II/ systolic murmur at left sternal border. ABDOMEN: Bowel sounds present, soft, nontender. Right lower abdomen colostomy in place and the skin around the colostomy has no signs of infection. EXTREMITIES: No clubbing, cyanosis or edema. SKIN: No diffuse rash. NEUROLOGIC: Non focal. PSYCHIATRIC: Calm and cooperative. Assessment and Plan - Plan IMPRESSION: 1. Large Left lung pneumonia and abscess. 2. Fever and leukocytosis. RECOMMENDATIONS: 1. Continue Unasyn. 2. Monitor culture. Antibiotic adjustment depending on culture. Dr. Mason covering weekend. Call if culture is resulted.
--- NOTE | 2018-03-05 14:19 | P.PNIM ---
Subjective Interval history: Post bronchoscopy. Purulent drainage with procedure. No new complaints from patient. Physical Exam Vital signs: Vital Signs 03/04/18 15:07 03/04/18 15:15 03/04/18 15:30 Temperature 96.8 F L Pulse Rate 80 69 66 Respiratory Rate 16 16 16 Blood Pressure 119/60 124/59 L 116/60 Pulse Oximetry 100 96 98 03/04/18 15:38 03/04/18 16:00 03/04/18 20:00 Temperature 98.9 F 97.3 F L Pulse Rate 68 65 81 Respiratory Rate 20 18 Blood Pressure 105/57 L 121/58 L Pulse Oximetry 98 92 L 03/04/18 23:38 03/05/18 00:00 03/05/18 03:45 Temperature 97.4 F L 99.5 F Pulse Rate 70 75 75 Respiratory Rate 18 18 Blood Pressure 104/55 L 108/53 L Pulse Oximetry 93 L 90 L 03/05/18 04:00 03/05/18 07:28 Temperature 99.6 F Pulse Rate 71 Respiratory Rate 19 Blood Pressure 125/60 Pulse Oximetry 93 L Intake & Output 03/04/18 03/05/18 03/05/18 18:59 06:59 18:59 Intake Total 680 / 680 440 / 440 100 / 100 Output Total 1999 0 / 0 Balance -1320 / -1320 440 / 440 100 / 100 Weight 4.8 kg Intake: IV 200 / 200 200 / 200 100 / 100 Unasyn Inj 3 GM In NS Inj 100 200 / 200 200 / 200 100 / 100 ML @ 200 mls/hr IV.SIG Q6H RAFY Rx#:[id number] Oral 480 / 480 240 / 240 Output: Urine 1999 0 / 0 Other: Date of Last Bowel Movement 03/03/18 # Bowel Movements 1 Narrative: GENERAL: NAD, A&Ox3 HEAD: Normocephalic. NECK: Supple, trachea midline. No lymphadenopathy. EYES: No scleral icterus. No injection or drainage. CARDIOVASCULAR: Regular rate and rhythm without murmurs, gallops, or rubs. RESPIRATORY: Breath sounds equal bilaterally. No accessory muscle use. GASTROINTESTINAL: Abdomen soft, non-tender, nondistended. MUSCULOSKELETAL: No cyanosis, or edema. SKIN: Warm and dry. NEURO: No focal neurological deficits. Results - Labs CBC & Chem 7: 03/02/18 06:19 08/07/18 06:19 Laboratory Results - last 24 hr 03/04/18 03/04/18 03/04/18 15:11 16:29 21:06 POC Glucose 92 65 L 346 H 03/04/18 03/05/18 03/05/18 23:13 03:20 06:57 POC Glucose 331 H 212 H 113 H 03/05/18 12:10 POC Glucose 163 H Microbiology 03/04/18 14:36 Bronchial - Left Lower Lobe Gram Stain - Final 03/04/18 14:36 Bronchial - Left Lower Lobe Bronchial Culture - Preliminary Rare growth normal respiratory daniel at 24 hours 03/04/18 14:36 Bronchial - Left Lower Lobe Gram Stain - Final 03/04/18 14:36 Bronchial - Left Lower Lobe Bronchial Culture - Preliminary Rare growth normal respiratory daniel at 24 hours 03/04/18 14:38 Bronchial Washings - Left Lower Lobe Fungal Smear - Final No fungal elements seen 03/04/18 14:38 Bronchial Washings - Left Lower Lobe Fungal Smear - Final Rare budding yeast 02/27/18 14:45 Blood - Peripheral Aerobic Blood Culture - Final No growth in 5 days 02/27/18 14:45 Blood - Peripheral Anaerobic Blood Culture - Final No growth in 5 days 02/27/18 14:40 Blood - Peripheral Aerobic Blood Culture - Final No growth in 5 days 02/27/18 14:40 Blood - Peripheral Anaerobic Blood Culture - Final No growth in 5 days - Imaging Impressions Chest X-Ray 03/04/18 14:57 CONCLUSION: 1. No pneumothorax or other acute abnormality post bronchoscopy. 2. Left lower lobe masslike area again noted. Assessment and Plan - Assessment (1) Left pulmonary lesion Code(s): R91.1 - Solitary pulmonary nodule Status: Acute (2) Acute renal failure (ARF) Code(s): N17.9 - Acute kidney failure, unspecified Status: Acute (3) Diabetic hyperosmolar non-ketotic state Code(s): E11.00 - Type 2 diabetes mellitus with hyperosmolarity without nonketotic hyperglycemic-hyperosmolar coma (NKHHC) Status: Acute (4) Diabetes Code(s): E11.9 - Type 2 diabetes mellitus without complications Status: Acute (5) Chronic heart failure Code(s): I50.9 - Heart failure, unspecified Status: Acute (6) Depression Code(s): F32.9 - Major depressive disorder, single episode, unspecified Status : Acute (7) Atrial fibrillation Code(s): I48.91 - Unspecified atrial fibrillation Status: Acute - Plan 67-year-old male admitted secondary to left-sided pneumonia with possible empyema Purulent material on bronchoscopy. Follow cultures. Continue monitoring patient's blood sugars. Left pulmonary pneumonia with loculations fluid-filled loculations on CT, differential includes empyema versus abscess Pulmonology following Continue Rocephin and azithromycin and clindamycin Monitor CBC Monitor for any recurrence of fevers Follow cultures Hyperglycemia and type 2 diabetes Diabetes mellitus type 2 Follow blood sugars Insulin sliding scale Diabetic diet CHF with A. fib Stable, no exacerbation continue Coreg Consider Coumadin if no procedures are to be done by pulmonology Lasix on hold due to dehydration BP meds on hold due to hypotension h/o depression Continue antidepressants Psychiatry consult pending, appreciate assistance Mild cognitive deficit Continue Aricept Follow-up as outpatient for cognitive testing DVT Prophylaxis Heparin Discharge planning Rule out empyema prior to transition for discharge and initiate Coumadin prior to discharge (2) Acute renal failure (ARF) Qualifiers: Acute renal failure type: unspecified Qualified Code(s): N17.9 - Acute kidney failure, unspecified
--- NOTE | 2018-03-05 16:11 | P.PNCV ---
- Note Subjective/Hospital Course: 67-year-old male who presented to the emergency room complaining of severe fatigue at home, apparently has been somewhat noncompliant with his diabetic medications. He lives in a fifth wheel [place]. He normally drives back and forth to [place], but this year he stayed in the area because of not feeling well since last April where he had surgery that included a colectomy and a colostomy that they are working on possibly closing. He has lost about 15 pounds over the last 3 months, he states because of his sugars have been uncontrolled. He did have a low-grade temperature of 100.9. The white cell count was 19,000. We were consulted because his CT chest showed a left lower lobe air broncho-diagrams with possible postobstructive pneumonia. We were consulted to evaluate for possible left VATS. However, after Dr. Berumen reviewed the scan, it seems to be more of a postobstructive pneumonia, not much fluid and/or air-fluid levels. He does have a cough that he has had since he has been in the hospital. PAST MEDICAL HISTORY: Diabetes mellitus, uncontrolled hypertension, CHF, atrial fibrillation. He was on Eliquis in the past, but had to stop because of cost and he was supposed to start on Coumadin, cardiomyopathy, chronic malnutrition. 03/05 s/p Bronchoscopy by Dr Deleon / Mucus plugging and a lot of pus-like material suctioned from the left lower lobe. path pending and cultures pending , pt feels better, no surgical intervention at this time Objective: Vital Signs - 24 hr 03/04/18 20:00 03/04/18 23:38 03/05/18 00:00 Temperature 97.3 F L 97.4 F L Pulse Rate 81 70 75 Respiratory Rate 18 18 Blood Pressure 121/58 L 104/55 L Pulse Oximetry 92 L 93 L 03/05/18 03:45 03/05/18 04:00 03/05/18 07:28 Temperature 99.5 F 99.6 F Pulse Rate 75 71 Respiratory Rate 18 19 Blood Pressure 108/53 L 125/60 Pulse Oximetry 90 L 93 L GENERAL: A&O x 3 SKIN: Warm and dry. HEAD: Normocephalic. EYES: No scleral icterus. No injection or drainage. NECK: Supple, trachea midline. No JVD or lymphadenopathy. CARDIOVASCULAR: Regular rate and rhythm without murmurs, gallops, or rubs. RESPIRATORY: Breath sounds equal bilaterally. No accessory muscle use. coarse breath sounds GASTROINTESTINAL: Abdomen soft, non-tender, nondistended. MUSCULOSKELETAL: No cyanosis, or edema. BACK: Nontender without obvious deformity. No CVA tenderness. Labs: Laboratory Results - last 12 hr 03/05/18 03/05/18 06:57 12:10 POC Glucose 113 H 163 H Result Diagrams: 03/02/18 06:19 03/02/18 06:19 - Plan (1) Pneumonia s/p Bronch continue IV antibiotics, cultures and path pending (1) Pneumonia Qualifiers: Pneumonia type: due to unspecified organism Laterality: unspecified laterality Lung location: unspecified part of lung Qualified Code(s): J18.9 - Pneumonia, unspecified organism
--- NOTE | 2018-03-05 18:51 | P.PNPL ---
Subjective Interval history: 67 YOWM with Pneumonia, Lung density with air bubbles No Fever WBC decreasing No Cough or sp No CP Had Bronch, lot of pus like material suctioned from LLL Breathing better Physical Exam Vital signs: Vital Signs 03/04/18 20:00 03/04/18 23:38 03/05/18 00:00 Temperature 97.3 F L 97.4 F L Pulse Rate 81 70 75 Respiratory Rate 18 18 Blood Pressure 121/58 L 104/55 L Pulse Oximetry 92 L 93 L 03/05/18 03:45 03/05/18 04:00 03/05/18 07:28 Temperature 99.5 F 99.6 F Pulse Rate 75 71 Respiratory Rate 18 19 Blood Pressure 108/53 L 125/60 Pulse Oximetry 90 L 93 L 03/05/18 12:00 Temperature 99.4 F Pulse Rate 77 Respiratory Rate 20 Blood Pressure 112/55 L Pulse Oximetry 94 L Intake & Output 03/04/18 03/05/18 03/05/18 18:59 06:59 18:59 Intake Total 680 / 680 440 / 440 200 / 200 Output Total 1999 0 / 0 Balance -1320 / -1320 440 / 440 200 / 200 Weight 4.8 kg Intake: IV 200 / 200 200 / 200 200 / 200 Unasyn Inj 3 GM In NS Inj 100 200 / 200 200 / 200 200 / 200 ML @ 200 mls/hr IV.SIG Q6H RAFY Rx#:[id number] Oral 480 / 480 240 / 240 Output: Urine 1999 0 / 0 Other: Date of Last Bowel Movement 03/03/18 # Bowel Movements 1 GENERAL: Elderly WM,NAD SKIN: Warm and dry. HEAD: Normocephalic. EYES: No scleral icterus. No injection or drainage. NECK: Supple, trachea midline. No JVD or lymphadenopathy. CARDIOVASCULAR: Regular rate and rhythm without murmurs, gallops, or rubs. RESPIRATORY: Breath sounds equal bilaterally. No accessory muscle use. Decreased BS left base GASTROINTESTINAL: Abdomen soft, non-tender, nondistended. MUSCULOSKELETAL: No cyanosis, or edema. BACK: Nontender without obvious deformity. No CVA tenderness. Assessment and Plan - Plan ASSESSMENT AND PLAN: 1. Left lung pneumonia with some locules of air in it. Possible abscess or empyema. 2. Small pleural effusion. 3. Atrial fibrillation. 4. Diabetes mellitus. 5. Anxiety and depression. PLAN: Cont Abx Monitor CBC DW Pt and his at BS Stable on RA Check Bronch results Will add Mucomyst nebs Use Acapella
[2018-03-05] MEDS ORDERED: [UNRECOGNIZED DRUG - REMARK] OTHER SCH (19:15)
[2018-03-06] MEDS: Ampicillin/Sulbactam Inj 3 GM in Sodium Chloride 0.9% Inj 100 ML IV.SIG SCH ×4 (04:24→21:36)
[2018-03-06 04:53] LABS: Baso # (Auto) 0.1 th/mm3 (0.0-0.2); Baso % (Auto) 0.7 % (0.0-2.0); Eos # (Auto) 0.6 th/mm3 (0.0-0.4); Eos % (Auto) 4.4 % (0.0-4.0); Hematocrit 24.9 % (39.0-51.0); Hemoglobin 8.2 gm/dL (13.0-17.0); Lymph # (Auto) 1.7 th/mm3 (1.0-4.8); Lymph % (Auto) 12.2 % (9.0-44.0); Mean Corpuscular HGB Conc 32.8 % (32.0-36.0); Mean Corpuscular Hemoglobin 27.3 pg (27.0-34.0); Mean Corpuscular Volume 83.3 fL (80.0-100.0); Mean Platelet Volume 7.5 fL (7.0-11.0); Mono # (Auto) 1.1 th/mm3 (0.0-0.9); Neut # (Auto) 10.6 th/mm3 (1.8-7.7); Neut % (Auto) 74.7 % (16.0-70.0); Platelet Count 470 th/mm3 (150-450); Red Blood Count 2.99 mil/mm3 (4.50-5.90); Red Cell Distribution Width 17.7 % (11.6-17.2); White Blood Count 14.2 th/mm3 (4.0-11.0)
[2018-03-06 05:11] LABS: Albumin 1.5 g/dL (3.4-5.0); Anion Gap 8 meq/L (5-15); Aspartate Aminotransferase 14 U/L (15-37); Blood Urea Nitrogen 22 mg/dL (7-18); Calcium 8.5 mg/dL (8.5-10.1); Carbon Dioxide 26.3 meq/L (21.0-32.0); Chloride 103 meq/L (98-107); Glomerular Filtration Rate 73 mL/min (>89); Glucose,Random 122 mg/dL (74-106); Potassium 4.5 meq/L (3.5-5.1); Sodium 137 meq/L (136-145)
[2018-03-06 05:12] LABS: Alanine Aminotransferase 16 U/L (12-78)
[2018-03-06 05:15] LABS: Alkaline Phosphatase 90 U/L (45-117); Total Protein 6.5 g/dL (6.4-8.2)
[2018-03-06] MEDS: Venlafaxine XR 37.5 MG Capsule PO SCH (09:41)
[2018-03-06] MEDS: Mirtazapine 15 MG Tablet PO SCH (09:41)
[2018-03-06] MEDS: Ascorbic Acid 500 MG Tablet PO SCH ×2 (09:42→21:33)
[2018-03-06] MEDS: Insulin Detemir Inj 1,000 UNIT/10 ML Vial SQ SCH ×2 (09:42→21:33)
[2018-03-06] MEDS: Insulin NovoLOG Aspart Correctional Sugar Inj SQ SCH ×4 (09:44→21:37)
[2018-03-06] MEDS: Carvedilol 6.25 MG Tablet PO SCH ×2 (09:50→21:33)
--- NOTE | 2018-03-06 18:31 | P.PNIM ---
Subjective Interval history: RN denies any setbacks since last night. Pt reports feeling well, no SOB today. Physical Exam Vital signs: Vital Signs 03/05/18 20:00 03/06/18 00:00 03/06/18 04:00 Temperature 99.1 F 99.1 F 98.8 F Pulse Rate 89 73 64 Respiratory Rate 17 15 19 Blood Pressure 130/63 117/56 L 120/67 Pulse Oximetry 98 94 L 94 L 03/06/18 08:00 03/06/18 11:38 03/06/18 12:00 Temperature 97.3 F L 97.9 F Pulse Rate 63 70 60 Respiratory Rate 20 12 20 Blood Pressure 125/59 L 121/58 L Pulse Oximetry 93 L 97 95 03/06/18 16:00 03/06/18 16:49 Temperature Pulse Rate 60 63 Respiratory Rate 12 Blood Pressure Pulse Oximetry Intake & Output 03/05/18 03/06/18 03/06/18 18:59 06:59 18:59 Intake Total 200 / 200 680 / 680 Output Total 650 / 650 Balance 200 / 200 30 / 30 Weight 71.2 kg Intake: IV 200 / 200 200 / 200 Unasyn Inj 3 GM In NS Inj 100 200 / 200 200 / 200 ML @ 200 mls/hr IV.SIG Q6H RAFY Rx#:[id number] Oral 480 / 480 Output: Urine 650 / 650 Other: # Voids 2 Date of Last Bowel Movement 03/03/18 03/03/18 Narrative: coarse BS bl, Unlabored breathing NAD, AA Results - Labs CBC & Chem 7: 03/06/18 03:35 03/06/18 03:35 Laboratory Results - last 24 hr 03/05/18 03/06/18 03/06/18 22:40 03:35 03:35 WBC 14.2 H RBC 2.99 L Hgb 8.2 L Hct 24.9 L MCV 83.3 MCH 27.3 MCHC 32.8 RDW 17.7 H Plt Count 470 H MPV 7.5 Neut % (Auto) 74.7 H Lymph % (Auto) 12.2 Cottle % (Auto) 8.0 Eos % (Auto) 4.4 H Baso % (Auto) 0.7 Neut # (Auto) 10.6 H Lymph # (Auto) 1.7 Cottle # (Auto) 1.1 H Eos # (Auto) 0.6 H Baso # (Auto) 0.1 WBC Differential . Differential Comment Auto diff final Sodium 137 Potassium 4.5 Chloride 103 Carbon Dioxide 26.3 Anion Gap 8 BUN 22 H Creatinine 1.01 Estimated GFR 73 L POC Glucose 347 H Random Glucose 122 H Calcium 8.5 Total Bilirubin 0.1 L AST 14 L ALT 16 Alkaline Phosphatase 90 Total Protein 6.5 Albumin 1.5 L 03/06/18 03/06/18 03/06/18 08:15 09:39 11:11 WBC RBC Hgb Hct MCV MCH MCHC RDW Plt Count MPV Neut % (Auto) Lymph % (Auto) Cottle % (Auto) Eos % (Auto) Baso % (Auto) Neut # (Auto) Lymph # (Auto) Cottle # (Auto) Eos # (Auto) Baso # (Auto) WBC Differential Differential Comment Sodium Potassium Chloride Carbon Dioxide Anion Gap BUN Creatinine Estimated GFR POC Glucose 61 L 132 H 268 H Random Glucose Calcium Total Bilirubin AST ALT Alkaline Phosphatase Total Protein Albumin 03/06/18 16:09 WBC RBC Hgb Hct MCV MCH MCHC RDW Plt Count MPV Neut % (Auto) Lymph % (Auto) Cottle % (Auto) Eos % (Auto) Baso % (Auto) Neut # (Auto) Lymph # (Auto) Cottle # (Auto) Eos # (Auto) Baso # (Auto) WBC Differential Differential Comment Sodium Potassium Chloride Carbon Dioxide Anion Gap BUN Creatinine Estimated GFR POC Glucose 281 H Random Glucose Calcium Total Bilirubin AST ALT Alkaline Phosphatase Total Protein Albumin Microbiology 03/04/18 14:36 Bronchial - Left Lower Lobe Gram Stain - Final 03/04/18 14:36 Bronchial - Left Lower Lobe Bronchial Culture - Final Heavy growth normal respiratory daniel 03/04/18 14:36 Bronchial - Left Lower Lobe Gram Stain - Final 03/04/18 14:36 Bronchial - Left Lower Lobe Bronchial Culture - Final Heavy growth normal respiratory daniel 03/04/18 14:38 Bronchial Washings - Left Lower Lobe Acid Fast Bacilli Smear - Final No acid fast bacilli seen 03/04/18 14:38 Bronchial Washings - Left Lower Lobe Acid Fast Bacilli Smear - Final No acid fast bacilli seen Assessment and Plan - Assessment (1) Left pulmonary lesion Code(s): R91.1 - Solitary pulmonary nodule Status: Acute (2) Acute renal failure (ARF) Code(s): N17.9 - Acute kidney failure, unspecified Status: Acute (3) Diabetic hyperosmolar non-ketotic state Code(s): E11.00 - Type 2 diabetes mellitus with hyperosmolarity without nonketotic hyperglycemic-hyperosmolar coma (NKHHC) Status: Acute (4) Diabetes Code(s): E11.9 - Type 2 diabetes mellitus without complications Status: Acute (5) Chronic heart failure Code(s): I50.9 - Heart failure, unspecified Status: Acute (6) Depression Code(s): F32.9 - Major depressive disorder, single episode, unspecified Status : Acute (7) Atrial fibrillation Code(s): I48.91 - Unspecified atrial fibrillation Status: Acute - Plan 67-year-old male admitted secondary to left-sided pneumonia with possible empyema Purulent material on bronchoscopy. Follow cultures. Continue monitoring patient's blood sugars. Left pulmonary pneumonia with loculations fluid-filled loculations on CT, differential includes empyema versus abscess Pulmonology following Continue Unasyn per ID; will need po recs for discharge. Mycobacterial cx could take weeks to return. So far all cultures negative including bronch washings. still elevated white count Hyperglycemia and type 2 diabetes Diabetes mellitus type 2 Follow blood sugars Insulin sliding scale Diabetic diet CHF with A. fib Stable, no exacerbation continue Coreg Consider Coumadin if no procedures are to be done by pulmonologykaren for now Lasix on hold due to dehydration BP meds on hold due to hypotension h/o depression Continue antidepressants Psychiatry consult pending, appreciate assistance Mild cognitive deficit Continue Aricept Follow-up as outpatient for cognitive testing DVT Prophylaxis Heparin Discharge planning Rule out empyema prior to transition for discharge and initiate Coumadin prior to discharge Discharge Planning: Dc pending ID clearance. (2) Acute renal failure (ARF) Qualifiers: Acute renal failure type: unspecified Qualified Code(s): N17.9 - Acute kidney failure, unspecified
[2018-03-07] MEDS: Ampicillin/Sulbactam Inj 3 GM in Sodium Chloride 0.9% Inj 100 ML IV.SIG SCH ×4 (03:32→21:54)
[2018-03-07] MEDS: Mirtazapine 15 MG Tablet PO SCH (09:39)
[2018-03-07] MEDS: Ascorbic Acid 500 MG Tablet PO SCH ×2 (09:39→21:55)
[2018-03-07] MEDS: Venlafaxine XR 37.5 MG Capsule PO SCH (09:40)
[2018-03-07] MEDS: Insulin NovoLOG Aspart Correctional Sugar Inj SQ SCH ×4 (09:40→21:55)
[2018-03-07] MEDS: Carvedilol 6.25 MG Tablet PO SCH ×2 (09:41→21:55)
[2018-03-07] MEDS: Insulin Detemir Inj 1,000 UNIT/10 ML Vial SQ SCH ×2 (09:43→21:56)
--- NOTE | 2018-03-07 15:44 | P.PNIM ---
Subjective Interval history: Nursing denies any deterioration since last night. Patient denies any shortness of breath today. No new complaints. is at the bedside today. Physical Exam Vital signs: Vital Signs 03/06/18 16:00 03/06/18 16:49 03/06/18 19:49 Temperature 97.8 F Pulse Rate 67 63 Respiratory Rate 20 12 Blood Pressure 116/58 L Pulse Oximetry 95 95 03/06/18 20:00 03/07/18 00:00 03/07/18 04:00 Temperature 98.9 F 98.1 F 98.2 F Pulse Rate 73 70 72 Respiratory Rate 16 16 18 Blood Pressure 110/55 L 124/60 127/62 Pulse Oximetry 95 95 94 L 03/07/18 08:00 03/07/18 12:00 03/07/18 12:44 Temperature 97.9 F 97.9 F Pulse Rate 62 63 66 Respiratory Rate 18 18 12 Blood Pressure 128/60 125/60 Pulse Oximetry 94 L 96 94 L Intake & Output 03/06/18 03/07/18 03/07/18 18:59 06:59 18:59 Intake Total 200 / 200 440 / 440 100 / 100 Balance 200 / 200 440 / 440 100 / 100 Weight 72.8 kg Intake: IV 200 / 200 100 / 100 Unasyn Inj 3 GM In NS Inj 100 200 / 200 100 / 100 ML @ 200 mls/hr IV.SIG Q6H RAFY Rx#:[id number] Oral 240 / 240 Other 200 / 200 Other: # Voids 2 Date of Last Bowel Movement 03/03/18 03/03/18 # Bowel Movements 0 Narrative: Clear lungs bilaterally, unlabored breathing Lying in bed, awake and alert, no acute distress On room air, Results - Labs CBC & Chem 7: 03/06/18 03:35 03/06/18 03:35 Laboratory Results - last 24 hr 03/06/18 03/06/18 03/07/18 16:09 20:12 08:02 POC Glucose 281 H 327 H 170 H 03/07/18 11:57 POC Glucose 249 H Microbiology 03/04/18 14:36 Bronchial - Left Lower Lobe Gram Stain - Final 03/04/18 14:36 Bronchial - Left Lower Lobe Bronchial Culture - Final Heavy growth normal respiratory daniel 03/04/18 14:36 Bronchial - Left Lower Lobe Gram Stain - Final 03/04/18 14:36 Bronchial - Left Lower Lobe Bronchial Culture - Final Heavy growth normal respiratory daniel Assessment and Plan - Assessment (1) Left pulmonary lesion Code(s): R91.1 - Solitary pulmonary nodule Status: Acute (2) Acute renal failure (ARF) Code(s): N17.9 - Acute kidney failure, unspecified Status: Acute (3) Diabetic hyperosmolar non-ketotic state Code(s): E11.00 - Type 2 diabetes mellitus with hyperosmolarity without nonketotic hyperglycemic-hyperosmolar coma (NKHHC) Status: Acute (4) Diabetes Code(s): E11.9 - Type 2 diabetes mellitus without complications Status: Acute (5) Chronic heart failure Code(s): I50.9 - Heart failure, unspecified Status: Acute (6) Depression Code(s): F32.9 - Major depressive disorder, single episode, unspecified Status : Acute (7) Atrial fibrillation Code(s): I48.91 - Unspecified atrial fibrillation Status: Acute - Plan 67-year-old male admitted secondary to left-sided pneumonia with possible empyema Purulent material on bronchoscopy. Follow cultures. Continue monitoring patient's blood sugars. Left pulmonary pneumonia with loculations Pulmonology following. Bronchial washing cultures are so far negative. Continue Unasyn per ID; will need po recs for discharge. Mycobacterial cx could take weeks to return. So far all cultures negative including bronch washings. still elevated white count, will recheck in a.m. Hyperglycemia and type 2 diabetes Diabetes mellitus type 2 Insulin sliding scale Diabetic diet chronic systolic CHF with A. fib Consider Coumadin if no procedures are to be done by pulmonology, jenisex for now coreg, starting lisinopril h/o depression will write for venlafaxine script per psych recommendations, to stop cymbalta Mild cognitive deficit Continue Aricept Follow-up as outpatient for cognitive testing DVT Prophylaxis Heparin Discharge planning ID clearance Discharge Planning: Dc pending ID clearance. (2) Acute renal failure (ARF) Qualifiers: Acute renal failure type: unspecified Qualified Code(s): N17.9 - Acute kidney failure, unspecified
[2018-03-07] MEDS: Lisinopril 5 MG Tablet PO SCH (18:38)
[2018-03-08] MEDS: Ampicillin/Sulbactam Inj 3 GM in Sodium Chloride 0.9% Inj 100 ML IV.SIG SCH ×4 (03:45→21:01)
[2018-03-08 06:53] LABS: Baso # (Auto) 0.1 th/mm3 (0.0-0.2); Eos # (Auto) 0.5 th/mm3 (0.0-0.4); Eos % (Auto) 4.9 % (0.0-4.0); Hematocrit 27.4 % (39.0-51.0); Lymph # (Auto) 1.9 th/mm3 (1.0-4.8); Lymph % (Auto) 17.3 % (9.0-44.0); Mean Corpuscular HGB Conc 32.7 % (32.0-36.0); Mean Corpuscular Hemoglobin 27.3 pg (27.0-34.0); Mean Corpuscular Volume 83.6 fL (80.0-100.0); Mean Platelet Volume 7.7 fL (7.0-11.0); Mono # (Auto) 0.6 th/mm3 (0.0-0.9); Mono % (Auto) 5.8 % (0.0-8.0); Neut # (Auto) 7.8 th/mm3 (1.8-7.7); Platelet Count 530 th/mm3 (150-450); Red Blood Count 3.28 mil/mm3 (4.50-5.90); Red Cell Distribution Width 17.6 % (11.6-17.2)
[2018-03-08] MEDS: Venlafaxine XR 37.5 MG Capsule PO SCH (09:30)
[2018-03-08] MEDS: Mirtazapine 15 MG Tablet PO SCH (09:30)
[2018-03-08] MEDS: Ascorbic Acid 500 MG Tablet PO SCH ×2 (09:31→21:02)
--- NOTE | 2018-03-08 09:31 | XR ---
EXAM DATE: 03/08/2018 7:58 AM EDT AGE/SEX: 67 years / Male INDICATIONS: . Evaluate for pneumonia. CLINICAL DATA: This is the patient's subsequent encounter. Patient reports that signs and symptoms h ave been present for 1 week and indicates a pain score of 0/10. MEDICAL/SURGICAL HISTORY: Cardiovascular disease. Pacemaker. COMPARISON: [facility], CHEST 1V SINGLE AP, 03/04/2018. . FINDINGS: Pacemaker in good position on the left. Persistent alveolar infiltrate left lower lobe with air bronc hograms some improvement. Granuloma right lung. The heart and pulmonary vascularity are normal. CONCLUSION: Alveolar infiltrate left lower lobe with air bronchograms, slightly improved in the interval. Electronically signed by: Delfin Mittal MD 03/08/2018 9:29 AM EDT
[2018-03-08] MEDS: Insulin Detemir Inj 1,000 UNIT/10 ML Vial SQ SCH ×2 (09:32→21:02)
[2018-03-08] MEDS: Carvedilol 6.25 MG Tablet PO SCH ×2 (09:32→21:02)
[2018-03-08] MEDS: Insulin NovoLOG Aspart Correctional Sugar Inj SQ SCH ×4 (09:32→21:02)
[2018-03-08] MEDS: Lisinopril 5 MG Tablet PO SCH (09:32)
--- NOTE | 2018-03-08 13:00 | P.PNID ---
Subjective Remarks: Patient is okay. S/P bronchoscopy. Purulent secretions noted. Culture so far showing yeast. Occasional cough without sputum production. Afebrile. Blood culture has no growth. Repeat chest x-ray showing improvement. This is a 67-year-old white male who presented to the emergency department on 02/25/2018 with weakness and hyperglycemia. The patient was having severe fatigue at home and was not getting out of bed. He was evaluated in the emergency department and his temperature was normal and his white count was also normal. The patient had elevated blood sugar. He was noted to be noncompliant with diabetic medicines. Chest x-ray was performed and it showed a loculated hemothorax. Subsequently, a CT scan of the lung was performed. The CT scan showed an 8 cm loculated fluid collection in the left lower hemithorax, containing multiple locules of air. There was also an associated small nonloculated left pleural effusion and fairly extensive bronchopneumonia in the left lung and to a lesser extent in the right upper lobe. Past Medical History: Diabetes mellitus type 1, hypertension, congestive heart failure, atrial fibrillation, cardiomyopathy, chronic malnutrition, colitis, pacemaker implantation 2 years ago, colostomy, and history of colectomy. Allergies/Adverse Reactions: Allergies No Known Allergies Adverse Reaction (Unknown, Uncoded 02/25/18 14:20) NONE Objective Vital Signs 03/07/18 16:00 03/07/18 16:28 03/07/18 20:00 Temperature 98.0 F 98.0 F Pulse Rate 65 78 64 Respiratory Rate 18 12 18 Blood Pressure 128/58 L 129/70 Pulse Oximetry 94 L 96 03/07/18 21:15 03/07/18 21:17 03/08/18 00:00 Temperature 97.8 F Pulse Rate 66 72 80 Respiratory Rate 18 16 Blood Pressure 126/69 Pulse Oximetry 97 97 03/08/18 04:00 03/08/18 08:00 03/08/18 08:06 Temperature 97.7 F 97.8 F Pulse Rate 88 80 100 H Respiratory Rate 18 18 Blood Pressure 121/77 129/76 Pulse Oximetry 96 97 03/08/18 08:38 Temperature Pulse Rate 60 Respiratory Rate 17 Blood Pressure Pulse Oximetry 95 Intake & Output 03/07/18 03/08/18 03/08/18 18:59 06:59 18:59 Intake Total 920 / 920 680 / 680 Balance 920 / 920 680 / 680 Weight 73 kg Intake: IV 200 / 200 200 / 200 Unasyn Inj 3 GM In NS Inj 100 200 / 200 200 / 200 ML @ 200 mls/hr IV.SIG Q6H RAFY Rx#:[id number] Oral 720 / 720 480 / 480 Other: # Voids 2 2 Date of Last Bowel Movement 03/03/18 03/03/18 # Bowel Movements 1 1 03/04/18 14:38 Bronchial Washings - Left Lower Lobe Fungal Smear - Final Rare budding yeast 03/04/18 14:38 Bronchial Washings - Left Lower Lobe Fungal Culture - Preliminary Yeast - ID to follow 03/04/18 14:38 Bronchial Washings - Left Lower Lobe Fungal Smear - Final No fungal elements seen 03/04/18 14:38 Bronchial Washings - Left Lower Lobe Fungal Culture - Preliminary Yeast - ID to follow 03/04/18 14:36 Bronchial - Left Lower Lobe Gram Stain - Final 03/04/18 14:36 Bronchial - Left Lower Lobe Bronchial Culture - Final Heavy growth normal respiratory daniel 03/04/18 14:36 Bronchial - Left Lower Lobe Gram Stain - Final 03/04/18 14:36 Bronchial - Left Lower Lobe Bronchial Culture - Final Heavy growth normal respiratory daniel 03/04/18 14:38 Bronchial Washings - Left Lower Lobe Acid Fast Bacilli Smear - Final No acid fast bacilli seen 03/04/18 14:38 Bronchial Washings - Left Lower Lobe Mycobacterial Culture - Pending 03/04/18 14:38 Bronchial Washings - Left Lower Lobe Acid Fast Bacilli Smear - Final No acid fast bacilli seen 03/04/18 14:38 Bronchial Washings - Left Lower Lobe Mycobacterial Culture - Pending Lab - Hematology Results 03/08/18 03:49 WBC 11.0 RBC 3.28 L Hgb 9.0 L Hct 27.4 L MCV 83.6 MCH 27.3 MCHC 32.7 RDW 17.6 H Plt Count 530 H MPV 7.7 Neut % (Auto) 71.0 H Lymph % (Auto) 17.3 Hubbard % (Auto) 5.8 Eos % (Auto) 4.9 H Baso % (Auto) 1.0 Neut # (Auto) 7.8 H Lymph # (Auto) 1.9 Hubbard # (Auto) 0.6 Eos # (Auto) 0.5 H Baso # (Auto) 0.1 WBC Differential . Differential Comment Auto diff final Lab - Chemistry Results 03/06/18 03/06/18 03/07/18 16:09 20:12 08:02 POC Glucose 281 H 327 H 170 H 03/07/18 03/07/18 03/07/18 11:57 17:29 20:14 POC Glucose 249 H 353 H 427 H 03/08/18 03/08/18 07:13 11:59 POC Glucose 106 259 H Imaging: ITS Impressions Chest CT 02/25/18 17:48 CONCLUSION: 1. 8 cm loculated fluid collection in the lower left hemithorax also containing multiple locules of air. Differential diagnosis includes peripheral lung access or empyema. There is an associated small nonloculated left pleural effusion and fairly extensive bronchopneumonia in the left lung and to a lesser extent in the right upper lobe. CT Consultation 03/01/18 00:00 CONCLUSION: 1. Left lower lobe pulmonary abscess. Antibiotic therapy recommended. 2. A percutaneous catheter placement is not indicated for a pulmonary abscess as there is high risk for bronchopleural fistula. Chest X-Ray 03/08/18 06:00 CONCLUSION: Alveolar infiltrate left lower lobe with air bronchograms, slightly improved in the interval. Physical Exam: GENERAL: No acute distress, looks chronically ill. HEENT: Extraocular movements are grossly intact. Pupils reactive to light. No icterus. Oropharynx mucosa moist. No visible lesions. No thrush. NECK: Supple. LUNGS: Decreased breath sounds at the left base. Otherwise good air movement. HEART: Regular S1 and S2 with a II/ systolic murmur at left sternal border. ABDOMEN: Bowel sounds present, soft, nontender. Right lower abdomen colostomy in place and the skin around the colostomy has no signs of infection. EXTREMITIES: No clubbing, cyanosis or edema. SKIN: No diffuse rash. NEUROLOGIC: Non focal. PSYCHIATRIC: Calm and cooperative. Assessment and Plan - Plan IMPRESSION: 1. Large Left lung pneumonia and abscess. Patient status post bronchoscopy. Cultures so far showing only yeast. Chest x-ray appears to be improving. 2. Fever and leukocytosis. Improved. RECOMMENDATIONS: 1. Continue Unasyn. 2. Add Diflucan. 3. Monitor culture. I have spoken to microbiology and this should be able to give identification of the yeast tomorrow. I anticipate that we can discharge him on p.o. antibiotics but need to identification of the yeast to decide on antifungal coverage. He will need to follow-up with pulmonology after discharge.
--- NOTE | 2018-03-08 18:20 | P.PNIM ---
Subjective Interval history: Nursing denies any deterioration since last night. Patient has no new complaints. No reports of any shortness of breath. Physical Exam Vital signs: Vital Signs 03/07/18 20:00 03/07/18 21:15 03/07/18 21:17 Temperature 98.0 F Pulse Rate 64 66 72 Respiratory Rate 18 18 Blood Pressure 129/70 Pulse Oximetry 96 97 03/08/18 00:00 03/08/18 04:00 03/08/18 08:00 Temperature 97.8 F 97.7 F 97.8 F Pulse Rate 80 88 80 Respiratory Rate 16 18 18 Blood Pressure 126/69 121/77 129/76 Pulse Oximetry 97 96 97 03/08/18 08:06 03/08/18 08:38 03/08/18 11:53 Temperature Pulse Rate 100 H 60 72 Respiratory Rate 17 Blood Pressure Pulse Oximetry 95 03/08/18 12:00 03/08/18 15:53 03/08/18 16:00 Temperature 97.7 F 98.5 F Pulse Rate 83 74 75 Respiratory Rate 18 18 Blood Pressure 123/60 Pulse Oximetry 92 L 96 03/08/18 16:13 Temperature Pulse Rate 80 Respiratory Rate 16 Blood Pressure Pulse Oximetry Intake & Output 03/07/18 03/08/18 03/08/18 18:59 06:59 18:59 Intake Total 920 / 920 680 / 680 200 / 200 Balance 920 / 920 680 / 680 200 / 200 Weight 73 kg Intake: IV 200 / 200 200 / 200 200 / 200 Unasyn Inj 3 GM In NS Inj 100 200 / 200 200 / 200 200 / 200 ML @ 200 mls/hr IV.SIG Q6H RAFY Rx#:[id number] Oral 720 / 720 480 / 480 Other: # Voids 2 2 3 Date of Last Bowel Movement 03/03/18 03/03/18 # Bowel Movements 1 1 Narrative: Clear lungs bilaterally, unlabored breathing No conversive dyspnea, and appropriate affect and mood Results - Labs CBC & Chem 7: 03/08/18 03:49 03/06/18 03:35 Laboratory Results - last 24 hr 03/07/18 03/08/18 03/08/18 20:14 03:49 07:13 WBC 11.0 RBC 3.28 L Hgb 9.0 L Hct 27.4 L MCV 83.6 MCH 27.3 MCHC 32.7 RDW 17.6 H Plt Count 530 H MPV 7.7 Neut % (Auto) 71.0 H Lymph % (Auto) 17.3 Martin % (Auto) 5.8 Eos % (Auto) 4.9 H Baso % (Auto) 1.0 Neut # (Auto) 7.8 H Lymph # (Auto) 1.9 Martin # (Auto) 0.6 Eos # (Auto) 0.5 H Baso # (Auto) 0.1 WBC Differential . Differential Comment Auto diff final POC Glucose 427 H 106 03/08/18 03/08/18 11:59 17:08 WBC RBC Hgb Hct MCV MCH MCHC RDW Plt Count MPV Neut % (Auto) Lymph % (Auto) Martin % (Auto) Eos % (Auto) Baso % (Auto) Neut # (Auto) Lymph # (Auto) Martin # (Auto) Eos # (Auto) Baso # (Auto) WBC Differential Differential Comment POC Glucose 259 H 336 H Microbiology 03/04/18 14:38 Bronchial Washings - Left Lower Lobe Fungal Smear - Final Rare budding yeast 03/04/18 14:38 Bronchial Washings - Left Lower Lobe Fungal Culture - Preliminary Yeast - ID to follow 03/04/18 14:38 Bronchial Washings - Left Lower Lobe Fungal Smear - Final No fungal elements seen 03/04/18 14:38 Bronchial Washings - Left Lower Lobe Fungal Culture - Preliminary Yeast - ID to follow - Imaging Impressions Chest X-Ray 03/08/18 06:00 CONCLUSION: Alveolar infiltrate left lower lobe with air bronchograms, slightly improved in the interval. Assessment and Plan - Assessment (1) Left pulmonary lesion Code(s): R91.1 - Solitary pulmonary nodule Status: Acute (2) Acute renal failure (ARF) Code(s): N17.9 - Acute kidney failure, unspecified Status: Acute (3) Diabetic hyperosmolar non-ketotic state Code(s): E11.00 - Type 2 diabetes mellitus with hyperosmolarity without nonketotic hyperglycemic-hyperosmolar coma (NKHHC) Status: Acute (4) Diabetes Code(s): E11.9 - Type 2 diabetes mellitus without complications Status: Acute (5) Chronic heart failure Code(s): I50.9 - Heart failure, unspecified Status: Acute (6) Depression Code(s): F32.9 - Major depressive disorder, single episode, unspecified Status : Acute (7) Atrial fibrillation Code(s): I48.91 - Unspecified atrial fibrillation Status: Acute - Plan 67-year-old male admitted secondary to left-sided pneumonia with possible empyema Purulent material on bronchoscopy. Follow cultures. Continue monitoring patient's blood sugars. Left pulmonary pneumonia with loculations Pulmonology following. Bronchial washing cultures are so far negative. Continue Unasyn per ID; will need po recs for discharge. Mycobacterial cx could take weeks to return. So far all cultures negative including bronch washings. still elevated white count, will recheck in a.m. Yeast is growing in the bronchial washings, will await speciation in a.m. per ID Hyperglycemia and type 2 diabetes Diabetes mellitus type 2 Insulin sliding scale Diabetic diet chronic systolic CHF with A. fib Consider Coumadin if no procedures are to be done by pulmonology, lovenox for now coreg, lisinopril h/o depression written venlafaxine script per psych recommendations, to stop cymbalta Mild cognitive deficit Continue Aricept Follow-up as outpatient for cognitive testing DVT Prophylaxis Heparin Discharge planning ID clearance Discharge Planning: Dc pending ID clearance. (2) Acute renal failure (ARF) Qualifiers: Acute renal failure type: unspecified Qualified Code(s): N17.9 - Acute kidney failure, unspecified
--- NOTE | 2018-03-08 20:09 | P.PNPL ---
Subjective Interval history: 67 YOWM with Pneumonia, Lung density with air bubbles No Fever WBC decreasing No Cough or sp No CP Breathing better BAL growing Yeast Physical Exam Vital signs: Vital Signs 03/07/18 21:15 03/07/18 21:17 03/08/18 00:00 Temperature 97.8 F Pulse Rate 66 72 80 Respiratory Rate 18 16 Blood Pressure 126/69 Pulse Oximetry 97 97 03/08/18 04:00 03/08/18 08:00 03/08/18 08:06 Temperature 97.7 F 97.8 F Pulse Rate 88 80 100 H Respiratory Rate 18 18 Blood Pressure 121/77 129/76 Pulse Oximetry 96 97 03/08/18 08:38 03/08/18 11:53 03/08/18 12:00 Temperature 97.7 F Pulse Rate 60 72 83 Respiratory Rate 17 18 Blood Pressure Pulse Oximetry 95 92 L 03/08/18 15:53 03/08/18 16:00 03/08/18 16:13 Temperature 98.5 F Pulse Rate 74 75 80 Respiratory Rate 18 16 Blood Pressure 123/60 Pulse Oximetry 96 Intake & Output 03/08/18 03/08/18 03/09/18 06:59 18:59 06:59 Intake Total 680 / 680 200 / 200 Balance 680 / 680 200 / 200 Weight 73 kg Intake: IV 200 / 200 200 / 200 Unasyn Inj 3 GM In NS Inj 100 200 / 200 200 / 200 ML @ 200 mls/hr IV.SIG Q6H RAFY Rx#:[id number] Oral 480 / 480 Other: # Voids 2 3 Date of Last Bowel Movement 03/03/18 # Bowel Movements 1 GENERAL: MBMN WM,NAD SKIN: Warm and dry. HEAD: Normocephalic. EYES: No scleral icterus. No injection or drainage. NECK: Supple, trachea midline. No JVD or lymphadenopathy. CARDIOVASCULAR: Regular rate and rhythm without murmurs, gallops, or rubs. RESPIRATORY: Breath sounds equal bilaterally. No accessory muscle use. GASTROINTESTINAL: Abdomen soft, non-tender, nondistended. MUSCULOSKELETAL: No cyanosis, or edema. BACK: Nontender without obvious deformity. No CVA tenderness. Assessment and Plan - Plan ASSESSMENT AND PLAN: 1. Left lung pneumonia with some locules of air in it. Possible abscess or empyema. 2. Small pleural effusion. 3. Atrial fibrillation. 4. Diabetes mellitus. 5. Anxiety and depression. PLAN: Cont Abx Monitor CBC Stable on RA Mucomyst nebs Use Acapella Diflucan per ID.
[2018-03-09] MEDS: Acetaminophen 325 MG Tablet PO PRN (00:12)
[2018-03-09] MEDS: Ampicillin/Sulbactam Inj 3 GM in Sodium Chloride 0.9% Inj 100 ML IV.SIG SCH ×3 (03:18→15:51)
[2018-03-09] MEDS: Carvedilol 6.25 MG Tablet PO SCH (09:32)
[2018-03-09] MEDS: Ascorbic Acid 500 MG Tablet PO SCH (09:32)
[2018-03-09] MEDS: Venlafaxine XR 37.5 MG Capsule PO SCH (09:32)
[2018-03-09] MEDS: Mirtazapine 15 MG Tablet PO SCH (09:33)
[2018-03-09] MEDS: Lisinopril 5 MG Tablet PO SCH (09:33)
[2018-03-09] MEDS: Insulin Detemir Inj 1,000 UNIT/10 ML Vial SQ SCH (09:33)
[2018-03-09] MEDS: Insulin NovoLOG Aspart Correctional Sugar Inj SQ SCH ×3 (09:34→18:51)
[2018-03-09 12:54] VITALS: BP 124/58; TEMP 97.5
--- NOTE | 2018-03-09 13:39 | P.PNID ---
Subjective Remarks: Patient feels okay. More energy. Sitting at bedside eating. Bronchoscopy culture has oumou glabrata. No cough. Says he swallow the sputum. Afebrile. Blood culture has no growth. Repeat chest x-ray shows improvement. This is a 67-year-old white male who presented to the emergency department on 02/25/2018 with weakness and hyperglycemia. The patient was having severe fatigue at home and was not getting out of bed. He was evaluated in the emergency department and his temperature was normal and his white count was also normal. The patient had elevated blood sugar. He was noted to be noncompliant with diabetic medicines. Chest x-ray was performed and it showed a loculated hemothorax. Subsequently, a CT scan of the lung was performed. The CT scan showed an 8 cm loculated fluid collection in the left lower hemithorax, containing multiple locules of air. There was also an associated small nonloculated left pleural effusion and fairly extensive bronchopneumonia in the left lung and to a lesser extent in the right upper lobe. Past Medical History: Diabetes mellitus type 1, hypertension, congestive heart failure, atrial fibrillation, cardiomyopathy, chronic malnutrition, colitis, pacemaker implantation 2 years ago, colostomy, and history of colectomy. Allergies/Adverse Reactions: Allergies No Known Allergies Adverse Reaction (Unknown, Uncoded 02/25/18 14:20) NONE Objective Vital Signs 03/08/18 15:53 03/08/18 16:00 03/08/18 16:13 Temperature 98.5 F Pulse Rate 74 75 80 Respiratory Rate 18 16 Blood Pressure 123/60 Pulse Oximetry 96 03/08/18 20:00 03/08/18 20:12 03/09/18 00:00 Temperature 98.3 F 97.9 F Pulse Rate 63 67 73 Respiratory Rate 18 16 18 Blood Pressure 121/75 108/59 L Pulse Oximetry 92 L 96 94 L 03/09/18 00:33 03/09/18 04:00 03/09/18 08:00 Temperature 97.7 F 98.0 F Pulse Rate 70 59 L 78 Respiratory Rate 18 20 Blood Pressure 136/69 147/70 H Pulse Oximetry 98 94 L 03/09/18 11:09 03/09/18 12:00 Temperature 97.5 F L Pulse Rate 70 66 Respiratory Rate 16 20 Blood Pressure 124/58 L Pulse Oximetry 92 L 97 Intake & Output 03/08/18 03/09/18 03/09/18 18:59 06:59 18:59 Intake Total 200 / 200 200 / 200 Output Total 400 / 400 Balance 200 / 200 -200 / -200 Weight 74.7 kg Intake: IV 200 / 200 200 / 200 Unasyn Inj 3 GM In NS Inj 100 200 / 200 200 / 200 ML @ 200 mls/hr IV.SIG Q6H RAFY Rx#:[id number] Output: Urine 400 / 400 Other: # Voids 3 Date of Last Bowel Movement 03/03/18 03/03/18 03/03/18 03/04/18 14:38 Bronchial Washings - Left Lower Lobe Fungal Smear - Final Rare budding yeast 03/04/18 14:38 Bronchial Washings - Left Lower Lobe Fungal Culture - Preliminary Oumou glabrata 03/04/18 14:38 Bronchial Washings - Left Lower Lobe Fungal Smear - Final No fungal elements seen 03/04/18 14:38 Bronchial Washings - Left Lower Lobe Fungal Culture - Preliminary Oumou glabrata 03/04/18 14:36 Bronchial - Left Lower Lobe Gram Stain - Final 03/04/18 14:36 Bronchial - Left Lower Lobe Bronchial Culture - Final Heavy growth normal respiratory daniel 03/04/18 14:36 Bronchial - Left Lower Lobe Gram Stain - Final 03/04/18 14:36 Bronchial - Left Lower Lobe Bronchial Culture - Final Heavy growth normal respiratory daniel Lab - Hematology Results 03/08/18 03:49 WBC 11.0 RBC 3.28 L Hgb 9.0 L Hct 27.4 L MCV 83.6 MCH 27.3 MCHC 32.7 RDW 17.6 H Plt Count 530 H MPV 7.7 Neut % (Auto) 71.0 H Lymph % (Auto) 17.3 Banner % (Auto) 5.8 Eos % (Auto) 4.9 H Baso % (Auto) 1.0 Neut # (Auto) 7.8 H Lymph # (Auto) 1.9 Banner # (Auto) 0.6 Eos # (Auto) 0.5 H Baso # (Auto) 0.1 WBC Differential . Differential Comment Auto diff final Lab - Chemistry Results 03/07/18 03/07/18 03/08/18 17:29 20:14 07:13 POC Glucose 353 H 427 H 106 03/08/18 03/08/18 03/08/18 11:59 17:08 20:04 POC Glucose 259 H 336 H 375 H 03/09/18 03/09/18 03/09/18 02:07 07:29 12:27 POC Glucose 71 160 H 233 H Imaging: ITS Impressions Chest CT 02/25/18 17:48 CONCLUSION: 1. 8 cm loculated fluid collection in the lower left hemithorax also containing multiple locules of air. Differential diagnosis includes peripheral lung access or empyema. There is an associated small nonloculated left pleural effusion and fairly extensive bronchopneumonia in the left lung and to a lesser extent in the right upper lobe. CT Consultation 03/01/18 00:00 CONCLUSION: 1. Left lower lobe pulmonary abscess. Antibiotic therapy recommended. 2. A percutaneous catheter placement is not indicated for a pulmonary abscess as there is high risk for bronchopleural fistula. Chest X-Ray 03/08/18 06:00 CONCLUSION: Alveolar infiltrate left lower lobe with air bronchograms, slightly improved in the interval. Physical Exam: GENERAL: No acute distress. HEENT: Extraocular movements are grossly intact. Pupils reactive to light. No icterus. Oropharynx mucosa moist. No visible lesions. No thrush. NECK: Supple. LUNGS: Decreased breath sounds. HEART: Regular S1 and S2 with a II/ systolic murmur at left sternal border. ABDOMEN: Bowel sounds present, soft, nontender. Right lower abdomen colostomy in place and the skin around the colostomy has no signs of infection. EXTREMITIES: No clubbing, cyanosis or edema. SKIN: No diffuse rash. NEUROLOGIC: Non focal. PSYCHIATRIC: Calm and cooperative. Assessment and Plan - Plan IMPRESSION: 1. Large Left lung pneumonia and abscess. Patient status post bronchoscopy. Cultures has oumou glabrata. 2. Fever and leukocytosis. Improved. RECOMMENDATIONS: Change Unasyn to PO Augmentin 875 mg bid plus Diflucan 400mg PO daily x 4 weeks. Follow-up with Pulmonary outpatient. Can be discharged today.
--- NOTE | 2018-03-09 14:20 | P.DS ---
Date of admission: 02/25/18 17:46 Primary care physician: UNKNOWN Brief History from admission: 67-year-old male with a medical history significant for atrial fibrillation, congestive heart failure, type 1 diabetes, depression who presented to the hospital for worsening weakness and severe hyperglycemia. History is obtained from the patient and his at bedside. Patient admitted that he has not been compliant with his medications for the past few weeks because he did not feel like he had any energy. His reports that he stated he just wanted to but the patient himself denies this. The patient admitted to very poor appetite and no energy to the point that he was falling at times when he tries to get up on his own. EMS noted blood glucose of 500 on day of arrival. The patient currently denies suicidal ideation. His reports that he would sleep up to 20 hours a day. Patient's also reported that he has been short of breath with a persistent cough. Although the patient himself again denies this. No reports of fevers. His chest x-ray shows worsening left mid to lower lung zone pleural parenchymal opacities. Possible hemothorax with compressive atelectasis. A CT of the chest is suggested and is pending at this time. Patient continues to smoke about 2 cigarettes a day. He has been a lifelong smoker of a pack per day. Regarding atrial fibrillation, patient and his reports he stopped taking Eliquis because it was costing them $400. They discussed this with his personnel clerk and there were plans to start him on Coumadin instead. DS: Diagnosis - Discharge Diagnosis (1) Left pulmonary lesion Status: Acute (2) Acute renal failure (ARF) Status: Acute (3) Diabetic hyperosmolar non-ketotic state Status: Acute (4) Diabetes Status: Acute (5) Chronic heart failure Status: Acute (6) Depression Status: Acute (7) Atrial fibrillation Status: Acute DS: Medications - Discharge Medications Prescriptions: amoxicillin-pot clavulanate [Augmentin] 1 tab PO Q12H #56 tab fluconazole 200 mg PO Q24H #28 tab lisinopril 5 mg PO DAILY #30 tab venlafaxine [Effexor XR] 37.5 mg PO DAILY #30 cap warfarin [Coumadin] 5 mg PO DIRECTED #30 tab DS: Summary Hospital Course: Patient was admitted, started on antibiotics. CT surgery was consulted, concluded no need for surgical intervention. Pulmonology performed bronchoscopy which ultimately yielded Oumou from the BAL. Infectious disease recommended 4 weeks of antibiotic and antifungal therapy, Mycobacterium BAL washing culture to be followed up as an outpatient. Patient was informed to follow-up with pulmonology outpatient. Patient was also instructed to have his INR rechecked within 3 days given that he was being discharged on Coumadin since Eliquis was previously too expensive for him for the treatment of his A. fib. Patient has met maximal benefit from hospitalization and is clinically stable for discharge. - Time Spent with Patient Total time spent providing and/or coordinating discharge services: Less than 30 minutes - Quality: VTE Deep Vein Thrombosis/Pulmonary Embolism Present on Admission: No Exam Vital signs: Vital Signs 03/08/18 15:53 03/08/18 16:00 03/08/18 16:13 Temperature 98.5 F Pulse Rate 74 75 80 Respiratory Rate 18 16 Blood Pressure 123/60 Pulse Oximetry 96 03/08/18 20:00 03/08/18 20:12 03/09/18 00:00 Temperature 98.3 F 97.9 F Pulse Rate 63 67 73 Respiratory Rate 18 16 18 Blood Pressure 121/75 108/59 L Pulse Oximetry 92 L 96 94 L 03/09/18 00:33 03/09/18 04:00 03/09/18 08:00 Temperature 97.7 F 98.0 F Pulse Rate 70 59 L 78 Respiratory Rate 18 20 Blood Pressure 136/69 147/70 H Pulse Oximetry 98 94 L 03/09/18 11:09 03/09/18 12:00 Temperature 97.5 F L Pulse Rate 70 66 Respiratory Rate 16 20 Blood Pressure 124/58 L Pulse Oximetry 92 L 97 Intake & Output 03/08/18 03/09/18 03/09/18 18:59 06:59 18:59 Intake Total 200 / 200 200 / 200 Output Total 400 / 400 Balance 200 / 200 -200 / -200 Weight 74.7 kg Intake: IV 200 / 200 200 / 200 Unasyn Inj 3 GM In NS Inj 100 200 / 200 200 / 200 ML @ 200 mls/hr IV.SIG Q6H RAFY Rx#:[id number] Output: Urine 400 / 400 Other: # Voids 3 Date of Last Bowel Movement 03/03/18 03/03/18 03/03/18 Narrative: Clear lungs bilaterally unlabored breathing Results Procedures completed during hospitalization: Bronchoscopy Labs on day of discharge: Labs from last 24 hours 03/09/18 03/09/18 03/09/18 12:27 07:29 02:07 POC Glucose 233 H 160 H 71 03/08/18 03/08/18 20:04 17:08 POC Glucose 375 H 336 H Preliminary micro results at discharge 03/04/18 14:38 Fungal Culture - Preliminary Bronchial Washings - Left Lower Lobe Oumou glabrata 03/04/18 14:38 Fungal Culture - Preliminary Bronchial Washings - Left Lower Lobe Oumou glabrata - Impressions ITS Impressions Chest CT 02/25/18 17:48 CONCLUSION: 1. 8 cm loculated fluid collection in the lower left hemithorax also containing multiple locules of air. Differential diagnosis includes peripheral lung access or empyema. There is an associated small nonloculated left pleural effusion and fairly extensive bronchopneumonia in the left lung and to a lesser extent in the right upper lobe. CT Consultation 03/01/18 00:00 CONCLUSION: 1. Left lower lobe pulmonary abscess. Antibiotic therapy recommended. 2. A percutaneous catheter placement is not indicated for a pulmonary abscess as there is high risk for bronchopleural fistula. Chest X-Ray 03/08/18 06:00 CONCLUSION: Alveolar infiltrate left lower lobe with air bronchograms, slightly improved in the interval. Discharge Plan - Discharge Disposition Patient Disposition: 01 Discharge Home - Discharge Condition Condition: Stable - Discharge Order Discharge Orders: Discharge Order (Routine); Ordered 03/09/18 Ordered By: Nic Dumas - Physicians Team Primary Care Provider: UNKNOWN, Attending Provider: Nic Dumas Other Providers: [employer] ; David Sherman MD ; Jovani Deleon MD ; Tiago Olsen MD ; Palma Berumen MD
--- NOTE | 2018-03-09 15:08 | P.PNCV ---
- Note Subjective/Hospital Course: 67-year-old male who presented to the emergency room complaining of severe fatigue at home, apparently has been somewhat noncompliant with his diabetic medications. He lives in a fifth wheel trailer [place]. He normally drives back and forth to [place], but this year he stayed in the area because of not feeling well since last April where he had surgery that included a colectomy and a colostomy that they are working on possibly closing. He has lost about 15 pounds over the last 3 months, he states because of his sugars have been uncontrolled. He did have a low-grade temperature of 100.9. The white cell count was 19,000. We were consulted because his CT chest showed a left lower lobe air broncho-diagrams with possible postobstructive pneumonia. We were consulted to evaluate for possible left VATS. However, after Dr. Berumen reviewed the scan, it seems to be more of a postobstructive pneumonia, not much fluid and/or air-fluid levels. He does have a cough that he has had since he has been in the hospital. PAST MEDICAL HISTORY: Diabetes mellitus, uncontrolled hypertension, CHF, atrial fibrillation. He was on Eliquis in the past, but had to stop because of cost and he was supposed to start on Coumadin, cardiomyopathy, chronic malnutrition. 03/05 s/p Bronchoscopy by Dr Deleon / Mucus plugging and a lot of pus-like material suctioned from the left lower lobe. path pending and cultures pending , pt feels better, no surgical intervention at this time 03/09 CXR improved , pt on room air no surgical intervention, will sign off Objective: Vital Signs - 24 hr 03/08/18 15:53 03/08/18 16:00 03/08/18 16:13 Temperature 98.5 F Pulse Rate 74 75 80 Respiratory Rate 18 16 Blood Pressure 123/60 Pulse Oximetry 96 03/08/18 20:00 03/08/18 20:12 03/09/18 00:00 Temperature 98.3 F 97.9 F Pulse Rate 63 67 73 Respiratory Rate 18 16 18 Blood Pressure 121/75 108/59 L Pulse Oximetry 92 L 96 94 L 03/09/18 00:33 03/09/18 04:00 03/09/18 08:00 Temperature 97.7 F 98.0 F Pulse Rate 70 59 L 78 Respiratory Rate 18 20 Blood Pressure 136/69 147/70 H Pulse Oximetry 98 94 L 03/09/18 11:09 03/09/18 12:00 Temperature 97.5 F L Pulse Rate 70 66 Respiratory Rate 16 20 Blood Pressure 124/58 L Pulse Oximetry 92 L 97 GENERAL: A&O x 3 SKIN: Warm and dry. HEAD: Normocephalic. EYES: No scleral icterus. No injection or drainage. NECK: Supple, trachea midline. No JVD or lymphadenopathy. CARDIOVASCULAR: Regular rate and rhythm without murmurs, gallops, or rubs. RESPIRATORY: Breath sounds equal bilaterally. No accessory muscle use. diminished in bases L>R GASTROINTESTINAL: Abdomen soft, non-tender, nondistended. MUSCULOSKELETAL: No cyanosis, or edema. BACK: Nontender without obvious deformity. No CVA tenderness. Labs: Laboratory Results - last 12 hr 03/09/18 03/09/18 07:29 12:27 POC Glucose 160 H 233 H Result Diagrams: 03/08/18 03:49 03/06/18 03:35 - Plan (1) Pneumonia (1) Pneumonia Qualifiers: Pneumonia type: due to unspecified organism Laterality: unspecified laterality Lung location: unspecified part of lung Qualified Code(s): J18.9 - Pneumonia, unspecified organism
[2018-03-09 15:18] VITALS: PULSE 84; RESP 18; O2SAT 96
[2018-03-09 16:55] LABS: Prothrombin Time 10.3 sec (9.8-11.6)
[2018-03-09] MEDS ORDERED: Enoxaparin Inj 30 MG/0.3 ML Syringe SQ ONE (17:30)
--- NOTE | 2018-03-09 19:26 | P.PNPL ---
Subjective Interval history: 67 YOWM with Pneumonia, Lung density with air bubbles No Fever WBC decreasing No Cough or sp No CP Breathing better BAL growing Yeast Physical Exam Vital signs: Vital Signs 03/08/18 20:00 03/08/18 20:12 03/09/18 00:00 Temperature 98.3 F 97.9 F Pulse Rate 63 67 73 Respiratory Rate 18 16 18 Blood Pressure 121/75 108/59 L Pulse Oximetry 92 L 96 94 L 03/09/18 00:33 03/09/18 04:00 03/09/18 08:00 Temperature 97.7 F 98.0 F Pulse Rate 70 59 L 60 Respiratory Rate 18 20 Blood Pressure 136/69 147/70 H Pulse Oximetry 98 94 L 03/09/18 11:09 03/09/18 12:00 03/09/18 15:17 Temperature 97.5 F L Pulse Rate 70 77 84 Respiratory Rate 16 20 18 Blood Pressure 124/58 L Pulse Oximetry 92 L 97 96 Intake & Output 03/09/18 03/09/18 03/10/18 06:59 18:59 06:59 Intake Total 200 / 200 1060 / 1060 Output Total 400 / 400 Balance -200 / -200 1060 / 1060 Weight 74.7 kg Intake: IV 200 / 200 100 / 100 Unasyn Inj 3 GM In NS Inj 100 200 / 200 100 / 100 ML @ 200 mls/hr IV.SIG Q6H RAFY Rx#:[id number] Oral 960 / 960 Output: Urine 400 / 400 Other: # Voids 2 Date of Last Bowel Movement 03/03/18 03/03/18 # Bowel Movements 1 GENERAL: Elderly WM,NAD SKIN: Warm and dry. HEAD: Normocephalic. EYES: No scleral icterus. No injection or drainage. NECK: Supple, trachea midline. No JVD or lymphadenopathy. CARDIOVASCULAR: Regular rate and rhythm without murmurs, gallops, or rubs. RESPIRATORY: Breath sounds equal bilaterally. No accessory muscle use. GASTROINTESTINAL: Abdomen soft, non-tender, nondistended. MUSCULOSKELETAL: No cyanosis, or edema. BACK: Nontender without obvious deformity. No CVA tenderness. Assessment and Plan - Plan ASSESSMENT AND PLAN: 1. Left lung pneumonia with some locules of air in it. Possible abscess or empyema. 2. Small pleural effusion. 3. Atrial fibrillation. 4. Diabetes mellitus. 5. Anxiety and depression. PLAN: Cont Abx Stable on RA Use Acapella Diflucan per ID. DC plans for home Will FU in office
== END 2018-03-09 19:30 | disposition home or self-care (01) ==
LOC: NEPC 14:01 → NEDA 17:46 → N04 19:05
PROVIDERS: ADMIT Hospitalist; ATTEND Hospitalist